=== PATIENT | female | born 1985 | race Caucasian/White ===

== ENCOUNTER 2017-08-09 20:28 | Emergency (ER) | payer OTHER, MEDICAID, SELFPAY ==
[2017-08-09 20:29] VITALS: BP 145/70; PULSE 95; RESP 17; TEMP 36.6; O2SAT 98; BMI 23.3
--- NOTE | 2017-08-09 20:57 | RAD_ITS ---
STUDY: X-RAY - RIGHT SHOULDER REASON FOR EXAM: Female, 31 years old. Pain TECHNIQUE: 2 view(s) of the shoulder. COMPARISON: None. FINDINGS: Normal glenohumeral articulation. Normal acromioclavicular joint. Normal acromion. Normal humeral head and visualized proximal humerus. The soft tissue structures are unremarkable. Normal visualized pulmonary apex. RAD/Shoulder min 2 Views IMPRESSION: Normal x-ray examination of the shoulder. Electronically Signed: Jefe Gardner MD at 21:41 EDT Tel , Service support ,
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
[2017-08-09] MEDS: Ketorolac 60 MG/2 ML Vial IM (21:10)
[2017-08-09] MEDS: Orphenadrine 60 MG/2 ML Ampul IM (21:10)
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
== END 2017-08-09 22:27 | disposition home or self-care (01) ==
LOC: ED 21:44
PROVIDERS: Emergency Provider Emergency Medicine; Family Provider Internal Medicine; PCP Internal Medicine
DX: S16.1XXA Strain of muscle, fascia and tendon at neck level, initial encounter (principal); S39.012A Strain of muscle, fascia and tendon of lower back, initial encounter; V53.5XXA Driver of pick-up truck or van injured in collision with car, pick-up truck or van in traffic accident, initial encounter; Y93.9 Activity, unspecified; Y92.9 Unspecified place or not applicable; Z90.710 Acquired absence of both cervix and uterus; Z72.0 Tobacco use
CPT/HCPCS: 72040; 72100; 73030; 99282

== ENCOUNTER → 2018-04-21 12:59 | Outpatient (CLI) | payer MEDICAID, SELFPAY ==
[2018-04-21 12:36] VITALS: BMI 21.1
--- NOTE | 2018-04-21 13:09 | RAD_ITS ---
STUDY: X-RAY CHEST REASON FOR EXAM: Female, 32 years old. Cough TECHNIQUE: PA and lateral views of the chest. COMPARISON: 05/09/2013 FINDINGS: Single small surgical clip projects over the left breast. The lungs are clear and expanded. There is no demonstrated pleural abnormality. Normal size heart. Normal mediastinum and kaylin. Normal visualized pulmonary arteries. Normal visualized aortic arch and descending thoracic aorta. Normal visualized thoracic spine. Normal visualized ribs, clavicles, and shoulders. There is no demonstrated abnormality of the visualized soft tissue structures of the upper abdomen. RAD/Chest PA and Lateral IMPRESSION: No acute cardiopulmonary process. Electronically Signed: Sathish Hernández MD at 18:54 EST , Service support ,
== END ==
PROVIDERS: Family Provider Internal Medicine; PCP Internal Medicine; Referring Provider Physician Assistant; Visit Provider Physician Assistant
DX: R05 Cough (principal)
CPT/HCPCS: 71046

== ENCOUNTER 2018-08-31 12:03 | Emergency (ER) | payer MEDICAID, SELFPAY ==
[2018-08-29 16:14] VITALS: BMI 21.1
[2018-08-31 12:04] VITALS: BP 113/66; PULSE 90; RESP 16; TEMP 36.8; O2SAT 98; BMI 26.6
--- NOTE | 2018-08-31 12:25 | EKG12_ITS ---
Test Reason : CP Blood Pressure : / mmHG Vent. Rate : 080 BPM Atrial Rate : 080 BPM P-R Int : 154 ms QRS Dur : 084 ms QT Int : 380 ms P-R-T Axes : 081 057 055 degrees QTc Int : 438 ms Normal sinus rhythm Normal ECG Confirmed by ANTHONY FRANKLIN ([id number]), editorial director CELIA BYRD ([id number]) on 09/07/2018 8:51:37 AM Referred By: JO Confirmed By:ANTHONY FRANKLIN
--- NOTE | 2018-08-31 12:27 | ED.VISSUMM ---
- ER Visit Summary Date of Service: 08/31/18 Chief Complaint: [] Chest pressure this morning History of Present Illness: The patient is a 32 F [] she really has no past history other than reports about a week ago she developed runny nose some URI type symptoms intermittent coughing and intermittent dizziness that she has had before she was seen by her providers diagnosed with vertigo related to URI and she is been taking meclizine those symptoms have basically been in the background since they began they may be slightly better she went to bed with all the above then woke today with a vague chest discomfort points to the left chest 5 AM, the symptoms are slightly worse if she turns her torso moves takes a deep breath but she denies fever her cough is unchanged and improved no shortness of breath no numbness weakness paresthesias, She has no history of UT PE or DVT denies has had hysterectomy does smoke half pack a day, 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 does not experience chest pain when she exerts herself Physical Examination: [] v signs within normal range General, no distress resting comfortably HEENT is generally unremarkable The neck is supple no adenopathy Cardiovascular, regular rate and rhythm Lungs, clear bilateral chest wall is not tender but she points to a rather focal area to the left lateral lower sternal region as the area of her discomfort Abdomen, soft nontender Extremities, no clubbing cyanosis or edema Neurologic, awake alert answering questions appropriately moving all 4 extremities Test Results: [] Emergency Department Course and Treatment: [] EKG shows a sinus rhythm nothing acute given all the above screening labs are obtained chest x-ray d-dimer Treatment Plan: [] Patient's labs are all generally unremarkable see those reports, chest x-ray nothing acute see that report, Reevaluation sting comfortably no distress discussed test results with her discussed the differential that would include life-threatening conditions discussed admission versus discharge for further management she did not wish to be admitted she preferred outpatient management she knew and understood instructions follow-up with her outpatient providers for further management return for change in symptoms Disposition: [] Home stable declined admission Impression: [] Left-sided chest pain etiology unclear This note was generated with [employer] software. It may contain incorrect words, spelling, and punctuation that were not noted in review of the chart prior to signing ED Disposition - Plan for ED Patient: Referrals: Shauna Nichols MD [Primary Care Provider] -
[2018-08-31 12:29] VITALS: O2SAT 99
--- NOTE | 2018-08-31 12:30 | RAD_ITS ---
STUDY: X-RAY CHEST REASON FOR EXAM: Female, 32 years old. Chest pain. TECHNIQUE: Single AP portable view of the chest. COMPARISON: Comparison is made with prior examination dated April 21, 2018. FINDINGS: EKG electrodes are seen. The lungs are clear and expanded. There is no demonstrated pleural abnormality. Normal size heart. Normal mediastinum and kaylin. Normal visualized pulmonary arteries. Normal visualized aortic arch and descending thoracic aorta. Normal visualized thoracic spine. Normal visualized ribs, clavicles, and shoulders. There is no demonstrated abnormality of the visualized soft tissue structures of the upper abdomen. RAD/Chest 1 View (Portable) IMPRESSION: Normal x-ray examination of the chest. Electronically Signed: Dimitris Stewart, at 12:57 EDT , Service support ,
[2018-08-31 12:33] LABS: Absolute Lymphocyte Count 3.32 X10^3/ul (0.83-4.51); Absolute Neutrophil Count 4.2 X10^3/uL (2.0-7.7); Basophil# 0.07 X10^3/uL; Basophil% 0.8 % (0-1); Eosinophils% 3.5 % (0-5); Hematocrit 39.6 % (37-47); Hemoglobin 13.3 g/dl (12.0-15.0); Lymphocyte # 3.32 X10^3/ul (4.0); Mean Corp Hgb Conc 33.6 g/gl (32-36); Mean Corpuscular Hgb 29.1 pg (27.0-32.0); Mean Corpuscular Volume 86.7 fL (81-99); Mean Platelet Vol. 11.1 fl (6.2-12.0); Monocyte# 0.62 X10^3/uL; Monocyte% 7.3 % (0-10); Neutrophil # 4.19 X10^3/uL (2.7-7.7); Neutrophil % 49.3 % (47-70); Platelet Count 335 K/mm3 (150-450); RBC Distribution Width CV 12.4 % (11.6-14.6); RBC Distribution Width SD 38.7 fl (35.1-43.9); Red Blood Count 4.57 M/mm3 (4.2-5.4); White Blood Count 8.5 K/mm3 (4.4-11.0)
[2018-08-31 12:43] LABS: POSITIVE COUNT NO; POSITIVE DIFFERENTIAL NO; POSITIVE MORPHOLOGY NO
[2018-08-31 12:57] LABS: Anion Gap 5 (5-15); BUN 12 mg/dL (7-18); BUN/Creat Ratio 15.8 RATIO (10-20); Chloride 108 mmol/L (98-107); Creatinine, Serum 0.76 mg/dL (0.55-1.02); EST Glomerular Filtration Rate 92 mL/min (>60); Est Glom Filt Rate - Afr Amer 111 mL/min (>60); Estimated Creatinine Clearance 112.79 ml/min; Glucose 89 mg/dL (74-106); Potassium 3.8 mmol/L (3.5-5.1); Sodium Level 140 mmol/L (136-145)
[2018-08-31 13:02] LABS: D-Dimer Quantitative (DVT/PE) < 0.27 FEU/ug/m (0.27-0.49)
[2018-08-31] MEDS: Ondansetron 4 MG/2 ML Vial IV (13:03)
[2018-08-31] MEDS: morphine 8 MG/ML Syringe IV (13:03)
[2018-08-31] MEDS: Meclizine HCl 25 MG Tablet PO (13:07)
[2018-08-31 13:08] VITALS: BP 116/64; PULSE 81; RESP 17; O2SAT 99
[2018-08-31 13:18] LABS: BNP,B-Type NATRIURETIC PEPTIDE 6.3 pg/mL (0-100)
[2018-08-31 14:36] VITALS: BP 112/80; PULSE 67; RESP 18; O2SAT 100
--- NOTE | 2018-08-31 14:42 | ED.DEP ---
ED Disposition - Plan for ED Patient: Instructions: ED Chest Pain Atypical Unkn Cause Referrals: Shauna Nichols MD [Primary Care Provider] -
[2018-08-31 14:54] VITALS: BP 112/80; PULSE 67; RESP 13
== END 2018-08-31 14:54 | disposition home or self-care (01) ==
LOC: ED 12:29
PROVIDERS: Emergency Provider Emergency Medicine; Family Provider Internal Medicine; PCP Internal Medicine
DX: R07.89 Other chest pain (principal); Z72.0 Tobacco use
CPT/HCPCS: 71045; 80048; 83880; 84484; 85025; 85379; 93005; 96374; 96375; 99284; A4216; J2405

== ENCOUNTER → 2018-09-18 14:15 | Outpatient (CLI) | payer MEDICAID, SELFPAY ==
[2018-09-18 09:40] VITALS: BMI 26.6
== END ==
PROVIDERS: Family Provider Internal Medicine; PCP Internal Medicine; Referring Provider Physician Assistant Surgical; Visit Provider Physician Assistant Surgical
DX: J02.9 Acute pharyngitis, unspecified (principal)
CPT/HCPCS: 87081

== ENCOUNTER 2018-10-06 19:06 | Emergency (ER) | payer MEDICAID, SELFPAY ==
[2018-09-18 09:40] VITALS: BMI 26.6
[2018-10-06 19:07] VITALS: BP 114/70; PULSE 105; RESP 15; TEMP 37.1; O2SAT 100; BMI 27.6
--- NOTE | 2018-10-06 19:37 | EKG12_ITS ---
Test Reason : ABDOMINAL PAIN Blood Pressure : / mmHG Vent. Rate : 081 BPM Atrial Rate : 081 BPM P-R Int : 164 ms QRS Dur : 082 ms QT Int : 374 ms P-R-T Axes : 085 066 061 degrees QTc Int : 434 ms Normal sinus rhythm Normal ECG Confirmed by BIBI BONNER, SUSAN ([id number]), dictionary editor CORRY DAVIDSON ([id number]) on 10/09/2018 1:26:26 PM Referred By: KAITLIN Confirmed By:SUSAN MTZ MD
--- NOTE | 2018-10-06 19:38 | US_ITS ---
STUDY: ABDOMINAL ULTRASOUND - RIGHT UPPER QUADRANT REASON FOR VISIT: Female, 33 years old. Right upper quadrant pain TECHNIQUE: Ultrasound evaluation of the right upper quadrant was performed with real-time and static rangel-scale imaging. TECHNICAL QUALITY: Adequate. COMPARISON: None. FINDINGS: Liver: The liver measures 18.5 cm. There is normal echogenicity of the liver. The bile ducts are within normal limits. There is hepatic color flow. The direction of portal flow is hepatopetal. There is no demonstrated mass lesion. Gallbladder: Normal distended gallbladder. The gallbladder wall measures 2 mm. There is a negative sonographic Gallardo's sign. There is no pericholecystic fluid. There are no gallstones. Common Bile Duct (C.B.D.): The common bile duct measures 4 mm. Pancreas: The pancreatic head and body are within normal limits. The pancreatic tail is not well visualized. There is no demonstrated pancreatic mass or cyst. Right Kidney: Normal size of the right kidney. The right kidney measures 11.2 cm. Normal renal cortex. There is no demonstrated renal mass or cyst. There is no right hydronephrosis. US/Gallbladder IMPRESSION: Normal right upper quadrant ultrasound examination. Electronically Signed: Jefe Vipul, at 20:57 EDT Tel , Service support ,
[2018-10-06 20:07] LABS: Absolute Lymphocyte Count 4.25 X10^3/ul (0.83-4.51); Basophil# 0.06 X10^3/uL; Basophil% 0.6 % (0-1); Eosinophil# 0.33 X10^3/uL; Eosinophils% 3.1 % (0-5); Hematocrit 40.1 % (37-47); Hemoglobin 13.7 g/dl (12.0-15.0); Lymphocyte # 4.25 X10^3/ul (4.0); Lymphocyte % 40.4 % (19-41); Mean Corp Hgb Conc 34.2 g/gl (32-36); Mean Corpuscular Volume 87.7 fL (81-99); Mean Platelet Vol. 10.6 fl (6.2-12.0); Monocyte# 0.85 X10^3/uL; Monocyte% 8.1 % (0-10); Neutrophil # 5.03 X10^3/uL (2.7-7.7); Neutrophil % 47.7 % (47-70); Platelet Count 321 K/mm3 (150-450); RBC Distribution Width CV 12.4 % (11.6-14.6); Red Blood Count 4.57 M/mm3 (4.2-5.4); White Blood Count 10.5 K/mm3 (4.4-11.0)
[2018-10-06 20:08] LABS: POSITIVE COUNT NO; POSITIVE DIFFERENTIAL NO; POSITIVE MORPHOLOGY NO
[2018-10-06] MEDS: Morphine 4 MG/ML Syringe IV (20:20)
[2018-10-06] MEDS: Ondansetron 4 MG/2 ML Vial IV (20:20)
[2018-10-06] MEDS: 0.9% Normal Saline 1,000 ML 150 ML IV (20:20)
[2018-10-06 20:24] LABS: AST(SGOT) 14 U/L (15-37); Alanine Aminotransfer ALT/SGPT 26 U/L (13-56); Alkaline Phosphatase 51 U/L (45-117); Anion Gap 3 (5-15); BUN 15 mg/dL (7-18); BUN/Creat Ratio 17.4 RATIO (10-20); Bilirubin, Direct < 0.05 mg/dL (0.00-0.30); Calcium,Total 9.1 mg/dL (8.5-10.1); Chloride 105 mmol/L (98-107); Creatinine, Serum 0.86 mg/dL (0.55-1.02); EST Glomerular Filtration Rate 80 mL/min (>60); Est Glom Filt Rate - Afr Amer 97 mL/min (>60); Estimated Creatinine Clearance 98.73 ml/min; Globulin 3.3 g/dL (2.2-4.2); Glucose 84 mg/dL (74-106); Lipase 85 U/L (73-393); Potassium 3.6 mmol/L (3.5-5.1); Protein, Total 7.3 g/dL (6.4-8.2); Sodium Level 137 mmol/L (136-145)
[2018-10-06 20:25] VITALS: RESP 16
[2018-10-06 21:20] VITALS: BP 110/72; PULSE 71; RESP 14; O2SAT 100
--- NOTE | 2018-10-06 22:33 | ED.VISSUMM ---
- ER Visit Summary Date of Service: 10/06/18 Chief Complaint: Right upper quadrant pain History of Present Illness: The patient is a 33 F who was seen in the ER 2 weeks ago for lower chest pain. She states the pain now has moved into the right upper quadrant. Pain is worse when she eats. She has had nausea but no vomiting. She denies fever. Physical Examination: Vital signs unremarkable. Patient sitting upright in bed no acute distress. Heart is regular rate and rhythm. Lung sounds are clear. Abdomen is soft with tenderness in the right upper quadrant. No guarding or rebound. Hypoactive bowel sounds are present throughout. Test Results: EKG is sinus 81 with no acute ischemia. CBC and chemistry studies normal. LFTs and lipase normal. Right upper quadrant ultrasound is unremarkable. Emergency Department Course and Treatment: Patient was given morphine, Zofran, and IV fluids. Test results are discussed with her. We will start her on Prilosec and give her Zofran for nausea. She is to follow-up with her primary care physician within 1 to 2 weeks. She was advised that she may require an EGD or HIDA scan to further evaluate her symptoms if she is not showing improvement. She voices understanding and agreement. Treatment Plan: [] Disposition: Discharge Impression: Right upper quadrant pain This note was generated with [employer] dictation software. It may contain incorrect words, spelling, and punctuation that were not noted in review of the chart prior to signing ED Disposition - Plan for ED Patient: Disposition: Home or Assisted Living Instructions: EPIGASTRIC PAIN (Uncertain cause) Prescriptions: Omeprazole [Prilosec] 20 mg PO DAILY #30 capsule Ondansetron [Zofran Odt] 4 mg PO Q8H PRN PRN #10 tablet PRN Reason: Nausea Referrals: Shauna Nichols MD [Primary Care Provider] - 1-2 Weeks
[2018-10-06 22:44] VITALS: RESP 16
== END 2018-10-06 22:45 | disposition home or self-care (01) ==
PROVIDERS: Emergency Provider Emergency Medicine; Family Provider Internal Medicine; PCP Internal Medicine
DX: R10.11 Right upper quadrant pain (principal); R11.0 Nausea; Z72.0 Tobacco use
CPT/HCPCS: 76705; 80048; 80076; 83690; 85025; 93005; 96361; 96374; 96375; 99283; J7030; J2405

== ENCOUNTER → 2018-12-01 12:54 | Outpatient (CLI) | payer MEDICAID, SELFPAY ==
--- NOTE | 2018-12-01 | FLU_PTH ---
PATIENT: AMY VILLEDA LOC: [facility] U#:[id number] AGE/SX: 39/F ROOM: RE12/01/[address]: Dr. Susan Collier MD : 1985 BED: DIS: SPEC #: [id number] RECD: 12/01/18 13:00 STATUS: NICOLE REQ #: [id number] MERLE: 12/01/18 00:[address]: Susan Collier DEPT: CYTOLOGY RECD BY: Carols Oconnell ENTERED: 12/01/18 13:02 SP TYPE: Fluid OTHR DR: Dr. Shauna Nichols MD Tissues: A - Thyroid gland, NOS B - Thyroid gland, NOS Procedures: Special Stain Group II Surgery Specimen Level IV Cytospin Fluid HEADER OPERATION: Ultrasound-guided fine needle aspiration right thyroid PRE-OP DIAGNOSIS: Thyroid nodules TISSUE SUBMITTED: A - FNA right thyroid fluid for cytology, B - FNA right thyroid 7 slides DIAGNOSIS CYTOLOGY A. Right thyroid nodule, FNA (Cytospin, cell block): Atypical follicular cells noted, highly suspicious for papillary thyroid carcinoma. B. Right thyroid nodule, FNA (Smear): Atypical follicular cells noted, highly suspicious for papillary thyroid carcinoma. Cellular smears. Adequate for evaluation.. DENZEL:alexis 12/04/18 COMMENT A. Immunohistochemistry ([id number]) supports the above diagnosis. Correlation clinical, radiologic findings and appropriate follow up are necessary. Case has been reviewed in consultation with Dr. Sharma who concurs with the above diagnosis. IDC:AM CYTOLOGY STUDY Slides are reviewed. CYTOLOGY GROSS A - Received is 30 ml of cloudy brown fluid labeled with the patient's name and and designated per the requisition as right thyroid. Submitted for cytology preparation including cell block. B - Received are seven smears labeled with the patient's name and designated per the requisition as right thyroid. Submitted for staining. / Mary 12/01/18 TC:5 CPT: 22084, 64453, 65488
--- NOTE | 2018-12-01 | IMM_PTH ---
PATIENT: AMY VILLEDA LOC: [facility] U#:[id number] AGE/SX: 39/F ROOM: RE12/01/[address]: Dr. Susan Collier MD : 1985 BED: DIS: SPEC #: [id number] RECD: 12/04/18 10:38 STATUS: NICOLE REQ #: [id number] MERLE: 12/01/18 00:[address]: Susan Collier DEPT: IMMUNOHISTOCHEMISTRY RECD BY: Fide Reyes ENTERED: 12/04/18 10:40 SP TYPE: IMMUNO OTHR DR: Dr. Shauna Nichols MD Tissues: Thyroid gland, NOS Procedures: HBME (initial) CD56 (add) CK19 (add) GAL-3 (add) PHYSICIAN & INSTITUTION [place] [id number] SPECIMEN INFORMATION: Tissue Source: A. FNA right thyroid fluid Clinical Info: Thyroid nodules Specimen Number: [id number] CPT code: 75862, 00525 x3 METHODOLOGY: Deparaffinized sections of prefer/formalin-fixed tissue or PAP/DQ stained slides are incubated with monoclonal/polyclonal antibodies/oligonucleotide probes. Localization is made via biotin free immunoperoxidase method. Appropriate controls are performed and reacted as expected. Results on target cell population are indicated in the following table: RESULTS: ANTIBODY / CLONE RESULT HBME1 (HBME-1) positive CK19 (A53-B/A2.26) positive GAL3 (9C4) negative CD56 (123C3.D5) negative These tests were developed and their performance characteristics determined by [facility]. They may not have been cleared or approved by the U.S. Food and Drug Administration. The FDA has determined that such clearance or approval is not necessary. INTERPRETATION: Right thyroid nodule fluid (cell block): Atypical follicular cells noted, highly suspicious for papillary thyroid carcinoma. Case has been reviewed in consultation with Dr. Sharma who concurs with the above diagnosis. IDC:[email or web address] SJ:ricardo 12/04/18
== END ==
PROVIDERS: Family Provider Internal Medicine; PCP Internal Medicine; Referring Provider Surgery; Visit Provider Surgery
DX: E04.1 Nontoxic single thyroid nodule (principal)
CPT/HCPCS: 88108; 88305; 88313; 88341; 88342

== ENCOUNTER 2018-12-18 10:19 | Inpatient (IN) | payer MEDICAID, SELFPAY ==
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
[2018-12-18] VITALS (10 sets, daily range): BP systolic 99–115; BP diastolic 60–79; PULSE 64–81; RESP 16–18; TEMP 36.3–37.1; O2SAT 98–100; BMI 26.7; BMI 26.8
--- NOTE | 2018-12-18 | IMM_PTH ---
PATIENT: AMY VILLEDA LOC: MS3 U#:[id number] AGE/SX: 33/F [facility] [facility] [place]21/[address]: Dr. Mindi Eden MD : 1985 BED: 1 DIS: 12/23/2018 SPEC #: [id number] RECD: 12/20/18 12:46 STATUS: SOU[facility]ar REQ #: [id number] MERLE: 12/18/18 00:[address]: Susan Collier DEPT: IMMUNOHISTOCHEMISTRY RECD BY: Chelle Dias ENTERED: 12/20/18 12:47 SP TYPE: IMMUNO OTHR DR: Dr. Shauna Nichols MD Tissues: A - Thyroid gland, NOS Procedures: HBME (initial) CD56 (add) CK19 (add) GAL-3 (add) PHYSICIAN & INSTITUTION [place] [id number] SPECIMEN INFORMATION: Tissue Source: A - Right thyroid Clinical Info: Atypia, right thyroid nodule Specimen Number: [id number] CPT code: 61779, 96257 x3 METHODOLOGY: Deparaffinized sections of prefer/formalin-fixed tissue or PAP/DQ stained slides are incubated with monoclonal/polyclonal antibodies/oligonucleotide probes. Localization is made via biotin free immunoperoxidase method. Appropriate controls are performed and reacted as expected. Results on target cell population are indicated in the following table: RESULTS: ANTIBODY / CLONE RESULT Block A HBME1 (HBME-1) positive CK19 (A53-B/A2.26) positive GAL3 (9C4) positive CD56 (123C3.D5) positive, focal These tests were developed and their performance characteristics determined by [facility]. They may not have been cleared or approved by the U.S. Food and Drug Administration. The FDA has determined that such clearance or approval is not necessary. INTERPRETATION: A. Right thyroid, lobectomy: Focal adenomatoid nodule. AM:almaz 12/25/18
[2018-12-18] MEDS: Lactated Ringers 1,000 ML 75 ML IV ×3 (08:33→15:10)
--- NOTE | 2018-12-18 10:00 | THYROID_PTH ---
PATIENT: AMY VILLEDA LOC: MS3 U#:[id number] AGE/SX: 33/F [place]: [facility] [place] RE12/21/[address]: Dr. Mindi Eden MD : 1985 BED: 1 DIS: 12/23/2018 SPEC #: [id number] RECD: 12/18/18 14:34 STATUS: NICOLE RELucy #: [id number] MERLE: 12/18/18 10:[address]: Susan Clolier DEPT: SURGICAL PATHOLOGY RECD BY: Fide Reyes ENTERED: 12/19/18 09:27 SP TYPE: THYROID OTHR DR: Dr. Shauna Nichols MD Tissues: A - Thyroid gland, NOS B - Thyroid gland, NOS Procedures: Surgery Specimen Level V HEADER OPERATION: Total thyroidectomy PRE-OP DIAGNOSIS: Atypia, right thyroid nodule TISSUE SUBMITTED: A. Right thyroid, B. Left thyroid MICROSCOPIC DIAGNOSIS A. Right thyroid, lobectomy: Colloid nodules with focal adenomatous nodule. Benign parathyroid tissue (3 mm in greatest dimension). See comment. B. Left thyroid, lobectomy: Colloid nodules. AM:almaz 12/25/18 COMMENT A. Immunohistochemistry ([id number]) supports the above diagnosis. This case is seen in consultation with of [employer]. His complete consultative report is viewable in patient's EMR. MICROSCOPIC DESCRIPTION Slides are reviewed. GROSS DESCRIPTION A - Received in fixative is one container labeled with the patient's name and designated right thyroid. The specimen consists of a thyroid lobectomy specimen weighing 13.3 gm and measuring 5.5 x 5 x 1 cm. A portion of isthmus is present measuring 1.5 x 0.7 x 0.5 cm. Present in the container is a detached piece of whyte-pink soft tissue measuring 1 x 0.5 x 0.3 cm. The specimen is inked as follows: anterior surface - black, posterior surface - blue, ischemic margin - yellow. Serial sections reveal [id number], solid cut surfaces without any mass lesion. The entire specimen is submitted in 12 cassettes as follows: 1 - detached piece of tissue and isthmus, 2-12 - rest of the specimen (2 containing most superior portion and 12 containing most inferior portion). / DENZEL:almaz 12/19/18 B - Received in fixative is one container labeled with the patient's name and designated left thyroid. The specimen consists of a thyroid lobectomy specimen weighing 10.5 gm and measuring 4 x 3 x 2 cm. A small portion of possible isthmus is also noted measuring 1.5 x 1 x 0.5 cm. The specimen is inked as follows: anterior surface - black, posterior surface - blue, ischemic margin - yellow. The entire specimen is submitted in ten cassettes as follows: 1-9 - thyroid lobe (1 containing most superior portion and 9 containing most inferior portion), 10 - isthmus. / DENZEL:almaz 12/19/18 TC:1 CPT: 95268 x2
--- NOTE | 2018-12-18 13:27 | PCM.OPRPT ---
Report of Operation Date of Procedure: 12/18/18 Pre-Operative Diagnosis: right thyroid nodule with FNA revealing atypia Post-Operative Diagnosis: same as above Surgery/Procedure Performed:: total thyroidectomy Description of Surgical Findings:: superior parathyroid may be embedded in superior aspect of right thyroid gland, but left upper and lower parathyroid glands visualized and also right lower parathyroid gland visualized, large right thyroid gland with adhesions disbursing agent: Catarina Kevin Type of Anesthesia:: General Anesthesiologist: Alf Oneal Specimen's removed: thyroid gland Estimated Blood Loss (mL): 20 ml Fluids Replaced: 1800 ml Description of Procedure: After informed consent was obtained, the patient was brought to the Operating Room. Appropriate time out protocol was followed. She was then placed in the supine position. She was then placed under GETA. The patient was then positioned with arms tucked and appropriate padding, with neck extension, and in the slightly reverse Trendelenburg position. The ultrasound transducer was then brought up and the patient's thyroid gland was evaluated using real time US. This was done to delineate the margins of the thyroid gland on both sides so as to make an incision appropriate for removal of the thyroid gland. This was then marked out with a marking pen on the patient's skin. The neck and upper chest were then prepped with a sterile surgical skin preparation and appropriate sterile surgical drapes were placed. The landmarks were identified and a low cervical collar incision was made with a 15 blade scalpel as previously marked out above. It was carried down to the subcutaneous tissues using Bovie in the electrocautery mode. The platysma was divided along the incision and then flaps were created superiorly to the cricoid cartilage level and inferiorly to the sternal notch. The fascia overlying the strap muscles was then divided along the midline. The right thyroid gland was approached first. The plane between the thyroid gland anteriorly and the strap muscles posteriorly was then bluntly dissected. Dissection continued layer by layer and with use of the Harmonic scalpel to separate the gland from the surrounding tissues. The right thyroid gland was noted to be adherent to the surrounding tissues more than normal. The superior pole vessels were taken were dissected out individually and then ligaclips were placed and then the vessels were transected with the Harmonic scalpel. It appeared that a structure that looked like a parathyroid gland was embedded in the superior pole of the thyroid gland. The right thyroid gland was also noted to be enlarged. The thyroid gland was then rotated medially the middle vein was identified and transected with the Harmonic scalpel. The inferior pole was then identified and the vessels were ligated with ligaclips. The recurrent laryngeal nerve was then identified along its course and protected from injury. The thyroid gland was rotated medially and then dissected off the trachea. This was carefully done to avoid any injury to the recurrent laryngeal nerves. The inferior parathyroid gland was identified and also protected. The right thyroid gland was then transected at the isthmus and forwarded to pathology for analysis. The patient had already stated that she wanted a total thyroidectomy, therefore frozen section was not done. Hemostasis was carefully controlled with electrocautery avoiding any injury to the recurrent laryngeal nerves and the parathyroid glands. Because there is some bleeding still near the area of the recurrent laryngeal nerve , Surgicel was used for hemostasis. The left thyroid gland was then approached next. The plane between the thyroid gland anteriorly and the strap muscles posteriorly was then bluntly dissected. Dissection continued layer by layer and with use of the Harmonic scalpel to separate the gland from the surrounding tissues. Of note, the left thyroid gland was smaller than the right and no adhesions were noted of the left thyroid lobe to the surrounding tissues. The superior pole vessels were taken were dissected out individually and then ligaclips were placed and then the vessels were transected with the Harmonic scalpel. The superior parathyroid gland was identified and protected from the area of dissection. The thyroid gland was then rotated medially the middle vein was identified and transected with the Harmonic scalpel. The inferior pole was then identified and the vessels were ligated with ligaclips. The recurrent laryngeal nerve was then identified along its course and protected from injury. The inferior parathyroid gland was identified and protected from the area of dissection. The inferior pole vessels were identified and the vessels were ligated with ligaclips and then transected with the Harmonic scalpel. The thyroid gland was rotated medially and then dissected off the trachea. It was forwarded to pathology for analysis. Hemostasis was carefully controlled with electrocautery. Surgicel was also applied to the thyroid bed. No active bleeding was noted at time of closure. The fascia of the strap muscles was then reapproximated along the midline using Vicryl suture. The platysma muscle was then reapproximated in a transverse fashion using interrupted 2-0 Vicryl suture. The skin incision was then reapproximated using 4-0 Monocryl in a running subcuticular fashion. The skin closure was reinforced with Dermibond. The patient was then extubated. She was brought to the Recovery Room in stable condition. - Complications none noted - Admit VTE Documentation VTE Present on Admission: Yes VTE Mechan Device Prophylaxis: SCD's
[2018-12-18] MEDS: Ketorolac 15 MG/ML Vial IM (14:36)
[2018-12-18] MEDS: 0.9% NaCl Peripheral Flush Adult/Peds IV (15:47)
[2018-12-18] MEDS: Ondansetron 4 MG/2 ML Vial IV (15:48)
--- NOTE | 2018-12-18 16:09 | NURSING ---
HOB elevated at 45 degrees.
[2018-12-18] MEDS: HYDROcodone Bitartrate/Apap 5/325 Tablet PO ×2 (19:17→23:17)
--- NOTE | 2018-12-18 19:42 | DCINST_ITS ---
Discharge Diet: No Restrictions Discharge Activity: Return to Normal Activity, May not drive while taking narcotic pain medications. Call your doctor if your incision/area has: Continuous Slow Oozing, Foul Smelling Discharge Call your doctor if you observe: Fever of 101 or Higher Additional Dressing/Incision Instructions:: Leave dressing intact. May shower and get wet. Do not soak - no swimming/tub baths Additional Instructions: Take two TUMS twice a day Allergies/Adverse Reactions: Allergies codeine Allergy (Verified 12/18/18 08:23) Other unable to sleep fluoxetine [From Prozac] Allergy (Verified 12/18/18 08:23) Other naproxen Allergy (Verified 12/18/18 08:23) Other nose bleed Medications to take at Discharge Albuterol Inhaler [Ventolin Hfa (SP)] 1 - 2 puff INHALATION Q4H PRN PRN 12/08/18 Ibuprofen 400 mg PO PRN PRN 12/08/18 Lactobacillus Acidophilus [Probiotic] 1 ea PO DAILY 12/08/18 cycloBENZAPRine HCl [Flexeril] 10 mg PO TID PRN PRN 12/08/18 Hydrocodone Bitart/Apap 5-325 [[place] 5MG-325MG] 1 tab PO Q8H PRN PRN 5 Days #15 tab 12/19/18 Levothyroxine [Synthroid] 150 mcg PO DAILY #30 tab 12/19/18 The following prescriptions were given: Hydrocodone Bitart/Apap 5-325 [[place] 5MG-325MG] 1 tab PO Q8H PRN PRN 5 Days #15 tab PRN Reason: Mod-Severe Pain (-01/18) Prescription Printed Levothyroxine [Synthroid] 150 mcg PO DAILY #30 tab Prescription Printed Primary Care Physician: Shauna Nichols MD [Primary Care Provider] - Test Results: Test results from this visit will be discussed in further detail at your follow- up appointment, if applicable. Please Follow Up With: Susan Collier MD - call When: to be seen next week, please call for date and time, thank you
[2018-12-19] MEDS: Morphine 4 MG/ML Syringe IV (01:21)
[2018-12-19 01:55] VITALS: BP 103/58; PULSE 79; RESP 16; TEMP 36.8; O2SAT 97
[2018-12-19] MEDS: HYDROcodone Bitartrate/Apap 5/325 Tablet PO ×2 (05:18→09:21)
[2018-12-19] MEDS: Levothyroxine 150 MCG Tablet PO (05:18)
[2018-12-19 06:16] LABS: Calcium,Total 8.2 mg/dL (8.5-10.1)
--- NOTE | 2018-12-19 07:13 | PCM.PN.SRG ---
Subjective: Patient feeling sore in the throat, complaint of swelling, has erythematous rash of the area - probably from the skin prep - Physical Exam General: Alert, Oriented x3 HEENT: Atraumatic Oral: Moist Mucosa, - - not sounding as hoarse as yesterday Neck: Supple, - - wound intact - no drainage, surrounding erythematous rash - probable skin irritation from surgical skin prep Lungs: Normal air movement Vital Signs Temp Pulse Resp BP Pulse Ox 98.2 F 79 16 103/58 L 97 12/19/18 01:55 12/19/18 01:55 12/19/18 01:55 12/19/18 01:55 12/19/18 01:55 Oxygen Delivery Method Room Air Weight: 87 kg Body Mass Index (BMI) 26.8 Intake and Output for Last 24 Hours 12/17/18 12/18/18 12/19/18 23:59 23:59 23:59 Intake Total 1583.50 / 1583.50 Balance 1583.50 / 1583.50 Laboratory Tests Past 24 Hrs 12/19/18 05:40 Calcium 8.2 L Medical Necessity - Tobacco Use Smoking Status: Current every day smoker Tobacco Use: Cigarettes Assessment/Plan All Active Problems (Last Updated 09/18/18 @ 09:39 by Maya Anderson) Pharyngitis, acute (Acute) No significant past medical history (Acute) Impression: S/P total thyroidectomy Plan: expected soreness of the throat and neck, swelling is minimal, does have reactive dermatitis from surgical skin prep will d/c to home start 150 micrograms of levothyroxine, also TUMS two tablets twice a day
[2018-12-19 07:44] VITALS: BP 112/76; PULSE 65; RESP 18; TEMP 36.3; O2SAT 100
[2018-12-19] MEDS: Calcium Carbonate 500 MG Tablet 1000 MG PO (07:47)
== END 2018-12-23 10:31 | disposition home or self-care (01) | DRG 404 ==
LOC: PCU 01-02 09:18 → MS3 01-02 09:22
PROVIDERS: Admitting Provider Surgery; Family Provider Internal Medicine; PCP Internal Medicine; Referring Provider Surgery; Visit Provider Student in an Organized Health Care Education/Training Program
PROC: 0GTK0ZZ Resection of Thyroid Gland, Open Approach (ICD-10-PCS; CPT 60240; principal; 2018-12-18 09:45)
DX: E04.1 Nontoxic single thyroid nodule (principal); G89.29 Other chronic pain; F17.210 Nicotine dependence, cigarettes, uncomplicated; K21.9 Gastro-esophageal reflux disease without esophagitis; E83.51 Hypocalcemia; E89.0 Postprocedural hypothyroidism; Z79.899 Other long term (current) drug therapy; Z79.890 Hormone replacement therapy
CPT/HCPCS: 60240; 36415; 82310; 88307; 88341; 88342; 96361; 96374; 96375; 99218; 99406; J7120; A4216; G0378; G0379; J2405

== ENCOUNTER 2018-12-21 18:59 | Observation (INO) | payer MEDICAID, SELFPAY ==
[2018-12-18 15:56] VITALS: BMI 26.8
[2018-12-21 19:02] VITALS: BP 140/90; PULSE 70; RESP 17; TEMP 36.9; O2SAT 99; BMI 28.0
--- NOTE | 2018-12-21 19:04 | EKG12_ITS ---
Test Reason : DYSRHYTHMIA Blood Pressure : / mmHG Vent. Rate : 072 BPM Atrial Rate : 072 BPM P-R Int : 138 ms QRS Dur : 074 ms QT Int : 398 ms P-R-T Axes : 067 073 066 degrees QTc Int : 435 ms Normal sinus rhythm Junctional ST depression, probably normal Borderline ECG Confirmed by HESHAM BONNER, VICENTE ([id number]), medical transcription editor LESA CARO ([id number]) on 12/25/2018 3:39:06 PM Referred By: OMEGA Confirmed By:TODD DAHL MD
[2018-12-21] MEDS: 0.9% Normal Saline 1,000 ML 250 ML IV (19:23)
[2018-12-21 19:40] LABS: Hematocrit 36.8 % (37-47); Hemoglobin 12.2 g/dL (12.0-15.0); Mean Corp Hgb Conc 33.2 g/dL (32-36); Mean Corpuscular Volume 87.6 fL (81-99); Mean Platelet Vol. 11.1 fl (6.2-12.0); Platelet Count 292 K/mm3 (150-450); RBC Distribution Width SD 38.5 fl (35.1-43.9); White Blood Count 9.2 K/mm3 (4.4-11.0)
[2018-12-21 19:56] LABS: AST(SGOT) 16 U/L (15-37); Alanine Aminotransfer ALT/SGPT 28 U/L (13-56); Albumin, Serum 3.4 g/dL (3.2-5.0); Alkaline Phosphatase 48 U/L (45-117); Anion Gap 4 (5-15); BUN 9 mg/dL (7-18); BUN/Creat Ratio 9.4 RATIO (10-20); Calcium,Total 8.4 mg/dL (8.5-10.1); Chloride 103 mmol/L (98-107); Creatinine, Serum 0.96 mg/dL (0.55-1.02); EST Glomerular Filtration Rate 70 mL/min (>60); Est Glom Filt Rate - Afr Amer 85 mL/min (>60); Estimated Creatinine Clearance 91.42 ml/min; Globulin 3.5 g/dL (2.2-4.2); Glucose 95 mg/dL (74-106); Potassium 3.5 mmol/L (3.5-5.1); Protein, Total 6.9 g/dL (6.4-8.2); Sodium Level 141 mmol/L (136-145)
--- NOTE | 2018-12-21 20:02 | ED.RN ---
PER DR. SCHULTZ RN TO ADMINISTER CALCIUM WITH A RESULT OF 8.4. RN WILL CONTINUE TO MONITOR.
--- NOTE | 2018-12-21 20:10 | PCM.HP.STD ---
Problem List (1) Hypocalcemia syndrome Status: Acute (2) Hypothyroidism Status: Chronic Qualifiers: Hypothyroidism type: unspecified Qualified Code(s): E03.9 - Hypothyroidism, unspecified (3) Chronic pain Status: Chronic Qualifiers: Chronic pain type: other chronic pain Qualified Code(s): G89.29 - Other chronic pain (4) DDD (degenerative disc disease) Status: Chronic Qualifiers: Mid-cervical spinal level: unspecified (5) Tobacco use Status: Chronic History of Present Illness Date of Admission: 12/21/18 Chief Complaint: Muscle cramps, fatigue, confusion The patient is a 33 y/o F w/ PMHx: Hypothyroidism, chronic back pain with degenerative disc disease, history of hypoglycemia who presents to the [facility] ED on 12/21/18 with recent 12/18/18 right thyroid nodule with FNA revealing atypia therefore patient underwent total thyroidectomy per Dr. Collier who now-represents with noted onset perioral paresthesias, cramps irritability, muscle spasms with notable fatigue, clonus and hyperreflexia worsening for the last several days prompting ED presentation. Patient notes that she has been in contact with Dr. Collier and the office staff with increase of her oral calcium supplementation and she felt as though she had been improving initially this a.m. however worsened through the evening. Dr. Harper is on-call for Dr. Collier and does not perform this procedure therefore hospitalist medicine contacted per ED physician. Work-up in the ED included T 98.4, heart rate 70, BP 140/90, respiratory rate 17, 99% on room air, CBC with WBC 9.2, hemoglobin 12.2, platelet 292 without differential obtained, CMP with carbon oxide 34, calcium 8.4. In the ED patient ministered calcium chloride, morphine, Zofran. In the ED patient with noted Chvostek's as well as Trousseau sign. Past Medical History Past Medical History (Chronic Problems): Chronic Problems (Last Updated 09/18/18 @ 09:39 by Maya Anderson) Hypothyroidism (Chronic) Chronic pain (Chronic) DDD (degenerative disc disease) (Chronic) Tobacco use (Chronic) Medical History: Medical History (Last Updated 09/18/18 @ 09:39 by Maya Anderson) Arthritis M19.90 Back pain M54.9 TMJ (temporomandibular joint syndrome) M26.609 Allergies codeine Allergy (Verified 12/18/18 08:23) Other unable to sleep fluoxetine [From Prozac] Allergy (Verified 12/18/18 08:23) Other naproxen Allergy (Verified 12/18/18 08:23) Other nose bleed Home Medications: Ambulatory Orders Medication Instructions Recorded Albuterol Inhaler [Ventolin Hfa 1 - 2 puff INHALATION Q4H PRN PRN 12/08/18 (SP)] Ibuprofen 400 mg PO DAILY PRN PRN 12/08/18 Lactobacillus Acidophilus 1 ea PO DAILY 12/08/18 [Probiotic] cycloBENZAPRine HCl [Flexeril] 10 mg PO TID PRN PRN 12/08/18 Hydrocodone Bitart/Apap 5-325 1 tab PO Q8H PRN PRN 5 Days #15 tab 12/19/18 [Castleton 5MG-325MG] Levothyroxine [Synthroid] 150 mcg PO DAILY #30 tab 12/19/18 Surgical History: Surgical History (Last Updated 09/18/18 @ 09:39 by Maya Anderson) History of partial hysterectomy Z90.711 Surgical History: - - Thyroidectomy, partial hysterectomy, L facial cyst removal, R elbow surgery. Psychiatric History: Anxiety, Depression [employer] History: No pertinent [employer] history Lives: With Family Smoking Status: Current some day smoker - 1/2 ppd cigarette tobacco use. Tobacco Use: Cigarettes Alcohol: None Drugs: None - *Family History Maternal Family History: Family History (Last Updated 09/18/18 @ 09:40 by Maya Anderson) Other Diabetes Hypertension History Items: Diabetes, Hypertension Paternal Family History: Family History (Last Updated 09/18/18 @ 09:40 by Maya Anderson) Other Diabetes Hypertension History Items: Diabetes, Hypertension Review of Systems Constitutional: Reports: Anorexia, Malaise, Weakness, Fatigue. Denies: Chills, Fever, Weight Change HEENT: Denies: Head Aches, Sinus Congestion, Sinus Drainage Cardiovascular: Denies: Chest Pain, Palpitations Respiratory: Denies: Cough, Shortness of breath at rest, Sputum production Gastrointestinal: Denies: Abdominal Pain, Nausea, Vomiting Genitourinary: Denies: Dysuria Musculoskeletal: Reports: Muscle pain. Denies: Joint Pain, Joint Tenderness Skin: Reports: Skin Changes. Denies: Rash, Wounds Neurological: Reports: Confusion, Numbness. Denies: Focal weakness, Tingling Psychiatric: Denies: Anxiety, Depression, Homicidal Ideations, Suicidal Ideations Hematologic/ Lymphatic: Denies: Easy Bruising, Easy Bleeding VTE Information - Inpt Only VTE Present on Admission: No VTE Mechan Device Prophylaxis: None VTE Pharm Prophylaxis ordered?: No Reason prophylaxis not ordered:: Treatment Not Indicated Patient Problems: Active and Suspected Problems (Last Updated 09/18/18 @ 09:39 by Maya Anderson) Hypocalcemia syndrome (Acute) Subjective: Seated upright in the bed, fatigued appearance, notes ongoing fasciculations of her muscles as well as cramping especially when BP obtained. Objective: Physical Examination: General: awake, alert, oriented x 3 and cooperative, seated upright in the ED bed, fatigued appearing. Skin: normal color, turgor, no icterus, cyanosis except recent thyroidectomy with incision intact, well-appearing. HEENT: AT/NC, EOMI, PERRLA, dry MM, recent thyroidectomy with incision intact, no carotid bruits or JVD noted. Lungs: CTA bilaterally, moderate effort, mild decrease BL bases, no rales, ronchi or wheezing. Heart: Regular rate and rhythm; no gallop, rub audible. Abdomen: soft, NTTP, ND, normal BS, no HSM. Extremities: no cyanosis, clubbing, or edema. Neurological: patient awake, alert, oriented x 3; cognitive function intact; pupils equally reactive to light and accomodation; cranial nerves II-XII grossly normal, moving all 4 extremities, no focal deficits, strength moderately to severely global decrease secondary to acute presentation, positive Trousseau sign evident during examination with BP cuff, unable to elicit response with tapping of the facial nerve. Psychiatric: affect appears fatigued, no acute evidence of depressive or anxiety feelings. - Physical Exam Vital Signs Temp Pulse Resp BP Pulse Ox 98.4 F 70 17 140/90 H 99 12/21/18 19:02 12/21/18 19:02 12/21/18 19:02 12/21/18 19:02 12/21/18 19:02 Oxygen Delivery Method Room Air Weight: 201 lb 8.04 oz Body Mass Index (BMI) 28.0 Laboratory Tests Past 24 Hrs 12/21/18 12/21/18 19:20 19:20 WBC 9.2 RBC 4.20 Hgb 12.2 Hct 36.8 L MCV 87.6 MCH 29.0 MCHC 33.2 RDW Std Deviation 38.5 RDW Coeff of Jenn 12.0 Plt Count 292 MPV 11.1 Sodium 141 Potassium 3.5 Chloride 103 Carbon Dioxide 34.0 H Anion Gap 4 L BUN 9 Creatinine 0.96 Estim Creat Clear Calc 91.42 Est GFR (MDRD) Af Amer 85 Est GFR (MDRD) Non-Af 70 BUN/Creatinine Ratio 9.4 L Glucose 95 Calcium 8.4 L Total Bilirubin 0.10 L AST 16 ALT 28 Alkaline Phosphatase 48 Total Protein 6.9 Albumin 3.4 Globulin 3.5 Albumin/Globulin Ratio 1.0 Assessment/Plan All Active Problems (Last Updated 09/18/18 @ 09:39 by Maya Anderson) Hypocalcemia syndrome (Acute) Pharyngitis, acute (Acute) No significant past medical history (Acute) The patient is a 33 y/o F w/ PMHx: Hypothyroidism, chronic back pain with degenerative disc disease, history of hypoglycemia who presents to the [facility] ED on 12/21/18 with recent 12/18/18 right thyroid nodule with FNA revealing atypia therefore patient underwent total thyroidectomy per Dr. Collier who now-represents with noted onset perioral paresthesias, cramps irritability, muscle spasms with notable fatigue, clonus and hyperreflexia. (1) Acute postoperative iatrogenic hypocalcemia secondary to recent thyroidectomy: Admission calcium 8.4, although not markedly low patient is notably symptomatic, will admit to medical surgical bed with telemetry, continue with current plan for calcium gluconate administration, additionally will administer calcitriol, will obtain ionized calcium, PTH, magnesium and phosphate levels, repeat CMP and CBC in a.m. Dr. Collier, patient's surgeon has been consulted. (2) Hypothyroidism: Continue home synthroid regimen. (3) Chronic Back Pain, DDD: Continue home chronic regimen, positional changes encouraged. (4) Tobacco Abuse: Encouraged cessation, inpatient consultation per RT, NR if desired. (5) DVT Prophylaxis: Low risk, ambulation encouraged. Code Visit Inpatient E&M: 87901 Init Hosp L3
--- NOTE | 2018-12-21 20:17 | ED.VIS.GEN ---
History of Present Illness Chief Complaint: Dizziness Detail of Chief Complaint: I do not feel well Informant: Patient Onset: Today Context: Sudden Onset Timing: Continuous Quality: Malaise, confusion, muscle irritability Location: Generalized Current Severity: Moderate Maximum Severity: Moderate Worsened by: Thyroidectomy December 19 Relieved by: Nothing Associated Symptoms: Symptoms of hypocalcemia Narrative: Patient is a 33-year-old who had a thyroidectomy performed by Dr. Susan Collier on December 19. Patient presents with symptoms of hypocalcemia. Patient's physical exam is consistent with hypocalcemia. She has no other complaints. She contacted Dr. Charli Harper who is on-call for general surgery for the [facility]. He recommended she come to the emergency department. Prior similar symptoms: No Recent Illness/Hospitalization: Yes Past Medical History - Allergies and Home Meds Allergies/Adverse Reactions: Allergies codeine Allergy (Verified 12/18/18 08:23) Other unable to sleep fluoxetine [From Prozac] Allergy (Verified 12/18/18 08:23) Other naproxen Allergy (Verified 12/18/18 08:23) Other nose bleed Primary Care Physician: Shauna Nichols MD [Primary Care Provider] - Prior records reviewed: Yes Past Medical History: None Surgical History: noncontributory Lives: With Family Smoking Status: Current some day smoker Alcohol: None Drugs: None Review of Systems General: Reports: Malaise. Denies: Chills, Fever, Sweats Eyes: Denies: Visual changes - bilaterally, Blurred Vision - bilaterally, Diplopia ENT: Denies: Bilateral ear pain, Rhinorrhea, Sore throat Cardiovascular: Denies: Chest pain, Palpitations Respiratory: Denies: Dyspnea, Cough, Dyspnea on exertion Gastrointestinal: Reports: Nausea. Denies: Abdominal pain, Vomiting, Diarrhea, Constipation, Melena, Hematochezia, -, - Genitourinary: Denies: Dysuria, Hematuria, Frequency Musculoskeletal: Reports: Myalgias, Extremity Pain. Denies: Arthralgias, Neck pain, Back pain, Swelling, -, - Skin: Denies: Rash, Wounds Neurological: Reports: Weakness, Parasthesia. Denies: Headache, Numbness, -, - Hematologic: Denies: Easy bruising, Easy bleeding Allergy: Denies: Uticaria, Swelling of the mouth, Swelling of the tongue Physical Exam Vital Signs/Narrative: Vital Signs Temp Pulse Resp BP Pulse Ox 12/21/18 19:02 98.4 F 70 17 140/90 H 99 Inital Vital Signs reviewed: Yes General: Well nourished, Well developed, - - She does not look well Head: Normocephalic, Atraumatic Eyes: Perrl, EOMI. Negative for: Pale conjunctiva, Scleral icterus ENT: Moist mucous membranes, No rhinorrhea Neck: Supple, Nontender, No lymphadenopathy, No JVD Cardiovascular: Regular rate, Regular rhythm, No murmurs, Normal S1, Normal S2 Respiratory: No distress, CTA bilaterally, Chest nontender Abdomen: Soft, Nontender, Nondistended, Normal bowel sounds Rectal: Deferred Back: Nontender, Normal Inspection. Negative for: CVA tenderness Extremities: Nontender, No edema Skin: Normal color, No rash, No Trauma. Negative for: Cyanosis, Diaphoresis, Jaundice Neurological: Alert, Oriented x3, Cranial nerves II-XII grossly intact, Normal Strength, Normal Sensation, Normal DTR - DTRs are brisk with 6-10 beats of clonus at the ankles, - - She has bilateral chovstek sign and positive Trousseau sign. Negative for: Normal Gait - Not assessed Psychological: Depressed Diagnostic/Tx/Re-eval - Medical Decision Making With patient's recent history of thyroidectomy symptoms of hypocalcemia and objective findings of hypocalcemia 1 g of calcium chloride to be infused over 50 minutes was ordered as well as a continuous drip of 1 g over 6 hours. Case was discussed with surgeon. He requested hospitalist admit patient because he does not do thyroidectomies nor has he treated hypocalcemia from thyroidectomy in some time. - Critical Care Time Critical care time (excluding procedures): 30-74 minutes - 32 minutes, Discussing w/Patient &/or Family/Commission Specialist, Discussing w/Consultants, Arranging Admission or Transfer ED Disposition - Plan for ED Patient: Diagnosis: Hypocalcemia syndrome Referrals: Shauna Nichols MD [Primary Care Provider] -
[2018-12-21] MEDS: Morphine 4 MG/ML Syringe IV (20:20)
[2018-12-21] MEDS: Ondansetron 4 MG/2 ML Vial IV (20:20)
[2018-12-21 21:07] VITALS: BP 117/85; PULSE 69; RESP 16; O2SAT 99
[2018-12-21 22:00] VITALS: BMI 27.6
[2018-12-21 22:18] LABS: Magnesium 1.8 mg/dL (1.6-2.6); Phosphorus 6.6 mg/dL (2.5-4.9)
[2018-12-21 22:19] VITALS: BP 107/65; PULSE 78; RESP 16; TEMP 36.6; O2SAT 97
[2018-12-21] MEDS: Acetaminophen 325 MG Tablet 650 MG PO (23:10)
[2018-12-21] MEDS: cycloBENZAPRine HCl 10 MG Tablet PO (23:10)
[2018-12-21] MEDS: 0.9% NaCl Peripheral Flush Adult/Peds IV (23:10)
[2018-12-21] MEDS: 0.9% Normal Saline 1,000 ML 125 ML IV (23:11)
[2018-12-22] VITALS (10 sets, daily range): BP systolic 101–122; BP diastolic 55–79; PULSE 68–88; RESP 16–18; TEMP 36.4–36.7; O2SAT 96–100
[2018-12-22] MEDS: HYDROcodone Bitartrate/Apap 5/325 Tablet PO ×5 (03:03→23:02)
[2018-12-22] MEDS: Levothyroxine 150 MCG Tablet PO (05:03)
[2018-12-22] MEDS: 0.9% Normal Saline 1,000 ML 999 ML IV (05:03)
[2018-12-22 05:53] LABS: Absolute Lymphocyte Count 3.37 X10^3/uL (0.83-4.51); Absolute Neutrophil Count 2.6 X10^3/uL (2.0-7.7); Basophil# 0.05 X10^3/uL; Basophil% 0.7 % (0-1); Eosinophil# 0.27 X10^3/uL; Hematocrit 33.1 % (37-47); Hemoglobin 10.9 g/dL (12.0-15.0); Lymphocyte # 3.37 X10^3/ul (4.0); Lymphocyte % 49.3 % (19-41); Mean Corp Hgb Conc 32.9 g/dL (32-36); Mean Platelet Vol. 10.9 fl (6.2-12.0); Monocyte% 7.3 % (0-10); NRBC Flagged by Analyzer 0 % (0-5); Neutrophil # 2.63 X10^3/uL (2.7-7.7); Neutrophil % 38.6 % (47-70); Platelet Count 245 K/mm3 (150-450); RBC Distribution Width CV 11.9 % (11.6-14.6); RBC Distribution Width SD 38.5 fl (35.1-43.9); Red Blood Count 3.76 M/mm3 (4.2-5.4); White Blood Count 6.8 K/mm3 (4.4-11.0)
[2018-12-22] MEDS: 0.9% Normal Saline 1,000 ML 150 ML IV (06:05)
[2018-12-22 06:29] LABS: AST(SGOT) 14 U/L (15-37); Alanine Aminotransfer ALT/SGPT 24 U/L (13-56); Albumin, Serum 2.7 g/dL (3.2-5.0); Alkaline Phosphatase 40 U/L (45-117); Anion Gap 7 (5-15); BUN 9 mg/dL (7-18); BUN/Creat Ratio 10.8 RATIO (10-20); Calcium,Total 7.8 mg/dL (8.5-10.1); Chloride 106 mmol/L (98-107); Creatinine, Serum 0.83 mg/dL (0.55-1.02); EST Glomerular Filtration Rate 83 mL/min (>60); Est Glom Filt Rate - Afr Amer 100 mL/min (>60); Estimated Creatinine Clearance 105.74 ml/min; Globulin 2.8 g/dL (2.2-4.2); Glucose 139 mg/dL (74-106); Phosphorus 5.9 mg/dL (2.5-4.9); Potassium 3.6 mmol/L (3.5-5.1); Protein, Total 5.5 g/dL (6.4-8.2); Sodium Level 142 mmol/L (136-145)
--- NOTE | 2018-12-22 07:31 | PCM.PN.SRG ---
Patient Problems: Active and Suspected Problems (Last Updated 09/18/18 @ 09:39 by Maya Anderson) Hypocalcemia syndrome (Acute) Subjective: Patient feels much improved since last night, cramping of extremities is abated and no longer has tingling, still with generalized weakness hungry this morning, vocalization is normal - Physical Exam General: Alert, Oriented x3 Oral: Moist Mucosa Neck: Supple, - - wound is dry and intact, no surrounding erythema, minimal swelling Lungs: Normal air movement Vital Signs Temp Pulse Resp BP Pulse Ox 98.1 F 77 16 101/55 L 98 12/22/18 03:00 12/22/18 03:00 12/22/18 03:00 12/22/18 03:00 12/22/18 03:00 Oxygen Delivery Method Room Air Weight: 89.7 kg Body Mass Index (BMI) 27.6 Intake and Output for Last 24 Hours 12/20/18 12/21/18 12/22/18 23:59 23:59 23:59 Intake Total 1239.17 / 1239.17 2579 / 2579 Balance 1239.17 / 1239.17 2579 / 2579 Laboratory Tests Past 24 Hrs 12/21/18 12/21/18 12/21/18 19:20 19:20 19:20 WBC 9.2 RBC 4.20 Hgb 12.2 Hct 36.8 L MCV 87.6 MCH 29.0 MCHC 33.2 RDW Std Deviation 38.5 RDW Coeff of Jenn 12.0 Plt Count 292 MPV 11.1 Immature Gran % (Auto) Neut % (Auto) Lymph % (Auto) [place] % (Auto) Eos % (Auto) Baso % (Auto) Absolute Neuts (auto) Absolute Lymphs (auto) Nucleated RBC % Sodium 141 Potassium 3.5 Chloride 103 Carbon Dioxide 34.0 H Anion Gap 4 L BUN 9 Creatinine 0.96 Estim Creat Clear Calc 91.42 Est GFR (MDRD) Af Amer 85 Est GFR (MDRD) Non-Af 70 BUN/Creatinine Ratio 9.4 L Glucose 95 Calcium 8.4 L Ionized Calcium Phosphorus 6.6 H Magnesium 1.8 Total Bilirubin 0.10 L AST 16 ALT 28 Alkaline Phosphatase 48 Total Protein 6.9 Albumin 3.4 Globulin 3.5 Albumin/Globulin Ratio 1.0 PTH Intact 12/21/18 12/22/1819 19:20 05:38 05:38 WBC 6.8 RBC 3.76 L Hgb 10.9 L Hct 33.1 L MCV 88.0 MCH 29.0 MCHC 32.9 RDW Std Deviation 38.5 RDW Coeff of Jenn 11.9 Plt Count 245 MPV 10.9 Immature Gran % (Auto) 0.100 Neut % (Auto) 38.6 L Lymph % (Auto) 49.3 H [place] % (Auto) 7.3 Eos % (Auto) 4.0 Baso % (Auto) 0.7 Absolute Neuts (auto) 2.6 Absolute Lymphs (auto) 3.37 Nucleated RBC % 0 Sodium Potassium Chloride Carbon Dioxide Anion Gap BUN Creatinine Estim Creat Clear Calc Est GFR (MDRD) Af Amer Est GFR (MDRD) Non-Af BUN/Creatinine Ratio Glucose Calcium Ionized Calcium Pending Phosphorus Magnesium Total Bilirubin AST ALT Alkaline Phosphatase Total Protein Albumin Globulin Albumin/Globulin Ratio PTH Intact Pending 12/22/18 05:38 WBC RBC Hgb Hct MCV MCH MCHC RDW Std Deviation RDW Coeff of Jenn Plt Count MPV Immature Gran % (Auto) Neut % (Auto) Lymph % (Auto) [place] % (Auto) Eos % (Auto) Baso % (Auto) Absolute Neuts (auto) Absolute Lymphs (auto) Nucleated RBC % Sodium 142 Potassium 3.6 Chloride 106 Carbon Dioxide 29.0 Anion Gap 7 BUN 9 Creatinine 0.83 Estim Creat Clear Calc 105.74 Est GFR (MDRD) Af Amer 100 Est GFR (MDRD) Non-Af 83 BUN/Creatinine Ratio 10.8 Glucose 139 H Calcium 7.8 L Ionized Calcium Phosphorus 5.9 H Magnesium Total Bilirubin 0.30 AST 14 L ALT 24 Alkaline Phosphatase 40 L Total Protein 5.5 L Albumin 2.7 L Globulin 2.8 Albumin/Globulin Ratio 1.0 PTH Intact Medical Necessity - Tobacco Use Smoking Status: Current some day smoker Tobacco Use: Cigarettes Assessment/Plan All Active Problems (Last Updated 09/18/18 @ 09:39 by Maya Anderson) Hypocalcemia syndrome (Acute) Pharyngitis, acute (Acute) No significant past medical history (Acute) Impression: POD#4 s/p total thyroidectomy - admitted for symptomatic hypocalcemia - transient hypoparathyroidism with hypocalcemia Discussion/Plan: calcium last night was 8.4, has dropped to 7.8 this morning ionized calcium is pending which I suspect will be low will continue to replenish calcium patient rec'd vit D last night will start vit D oral this morning regular diet will recheck calcium later this morning anticipate discharge if can get better than normal calcium level appreciate Internal Medicine - Dr. Singleton - care of patient as I was unavailable last night
--- NOTE | 2018-12-22 09:26 | PN_ITS ---
Patient Problems: Active and Suspected Problems (Last Updated 09/18/18 @ 09:39 by Maya Anderson) Hypocalcemia syndrome (Acute) Subjective: Patient seen and examined. She was admitted with a complaint of muscle cramps, fatigue and confusion. Patient had total thyroidectomy on 12/18/2018 after she had FNA biopsy of a right thyroid nodule which showed atypical cells. She had been on oral calcium supplementation and states she started having the above symptoms. She contacted her surgeon Dr. Collier and she was told to increase her oral calcium supplementation. However his symptoms worsened and so she came into the ED. The ED, she had positive Chvostek sign as well as Trousseau sign and calcium levels 8.4. She was started on calcium chloride and admitted to be managed for symptomatic hypercalcemia likely iatrogenic from thyroid surgery. Patient still complains of some numbness and tingling in her arms. She still feels very tired. Review of systems otherwise negative. Labs and vitals reviewed. Calcium is down to 7.8 today. Ionized calcium is still pending. Vitals/I&O's: Vital Signs Temp Pulse Resp BP Pulse Ox 98.1 F 77 16 101/55 L 96 12/22/18 03:00 12/22/18 03:00 12/22/18 03:00 12/22/18 03:00 12/22/18 07:00 Oxygen Delivery Method Room Air Weight: 197 lb 12.074 oz Body Mass Index (BMI) 27.6 Intake and Output for Last 24 Hours 12/20/18 12/21/18 12/22/18 23:59 23:59 23:59 Intake Total 1239.17 / 1239.17 2579 / 2579 Balance 1239.17 / 1239.17 2579 / 2579 General: Alert, Oriented x3, Cooperative, No apparent distress HEENT: Atraumatic, PERRLA, EOMI, Normocephalic Oral: Moist Mucosa Neck: Supple, No JVD, Negative Carotid Bruits Lungs: Clear to auscultation, Normal air movement, No rhonchi, No wheeze Cardiovascular: Regular rate, Regular Rhythm, Normal S1, Normal S2, No murmurs Abdomen: Bowel Sounds Present, Soft, Non Tender, Non-Distended, No Hepato- splenomegaly Extremities: No clubbing, No cyanosis, No edema, Capillary Refill Less than 3 Seconds Skin: - - healing thyroidectomy scar Musculoskeletal: No Tenderness to Palpation of Joints or Extremities, - - ppsitive Chvostek's sign. Lymphatic: No Cervical, Supraclavicular, or Inguinal Adenopathy Neurological: Cranial nerves II-XII grossly intact, Neuro grossly intact, Motor Exam 5/5 strength throughout Psych/Mental Status: Normal Affect, Appropriate, Alert and oriented to time, place, person, mood and affect Laboratory Results 12/21/18 19:20: WBC 9.2, RBC 4.20, Hgb 12.2, Hct 36.8 L, MCV 87.6, MCH 29.0, MCHC 33.2, RDW Std Deviation 38.5, RDW Coeff of Jenn 12.0, Plt Count 292, MPV 11.1 12/21/18 19:20: Sodium 141, Potassium 3.5, Chloride 103, Carbon Dioxide 34.0 H, Anion Gap 4 L, BUN 9, Creatinine 0.96, Estim Creat Clear Calc 91.42, Est GFR (MDRD) Af Amer 85, Est GFR (MDRD) Non-Af 70, BUN/Creatinine Ratio 9.4 L, Glucose 95, Calcium 8.4 L, Total Bilirubin 0.10 L, AST 16, ALT 28, Alkaline Phosphatase 48, Total Protein 6.9, Albumin 3.4, Globulin 3.5, Albumin/Globulin Ratio 1.0 12/21/18 19:20: Phosphorus 6.6 H, Magnesium 1.8 12/21/18 19:20: PTH Intact Pending 12/22/18 05:38: Ionized Calcium Pending 12/22/18 05:38: WBC 6.8, RBC 3.76 L, Hgb 10.9 L, Hct 33.1 L, MCV 88.0, MCH 29.0, MCHC 32.9, RDW Std Deviation 38.5, RDW Coeff of Jenn 11.9, Plt Count 245, MPV 10.9, Immature Gran % (Auto) 0.100, Neut % (Auto) 38.6 L, Lymph % (Auto) 49.3 H, [place] % (Auto) 7.3, Eos % (Auto) 4.0, Baso % (Auto) 0.7, Absolute Neuts (auto) 2.6, Absolute Lymphs (auto) 3.37, Nucleated RBC % 0 09/13/19 05:38: Sodium 142, Potassium 3.6, Chloride 106, Carbon Dioxide 29.0, Anion Gap 7, BUN 9, Creatinine 0.83, Estim Creat Clear Calc 105.74, Est GFR (MDRD) Af Amer 100, Est GFR (MDRD) Non-Af 83, BUN/Creatinine Ratio 10.8, Glucose 139 H, Calcium 7.8 L, Phosphorus 5.9 H, Total Bilirubin 0.30, AST 14 L, ALT 24, Alkaline Phosphatase 40 L, Total Protein 5.5 L, Albumin 2.7 L, Globulin 2.8, Albumin/Globulin Ratio 1.0 Current Medications Acetaminophen (Tylenol) 650 mg PO Q6H PRN PRN PRN Reason: Non-cardiac pain (mod-severe) Last Admin: 12/21/18 23:10 Dose: 650 mg Documented by: Hydrocodone Bitart/Acetaminophen (Buena 5mg-325mg) 1 - 2 tablet PO Q4H PRN PRN PRN Reason: MOD-SEVERE PAIN (4-10) Last Admin: 12/22/18 03:03 Dose: 1 tablet Documented by: Al Hydroxide/Mg Hydroxide (Mylanta Ii) 15 - 30 ml PO Q4H PRN PRN PRN Reason: INDIGESTION Albuterol Sulfate (Ventolin Aerosols) 2.5 mg INHALATION Q2H PRN PRN PRN Reason: dyspnea, wheezing Calcium Carbonate (Tums) 1,000 mg PO Q6 YASEMIN Cholecalciferol (Vitamin D) 2,000 unit PO DAILY YASEMIN Cyclobenzaprine HCl (Flexeril) 10 mg PO TID PRN PRN PRN Reason: PAIN Last Admin: 12/21/18 23:10 Dose: 10 mg Documented by: Dextrose (D50w Syringe) 0 gm IV X1 PRN; Protocol PRN Reason: Hypoglycemia Glucagon () 1 mg IM .X1 PRN PRN Reason: Hypoglycemia Hydralazine HCl (Apresoline Iv) 10 mg IV Q4H PRN PRN PRN Reason: SBP > 160 Sodium Chloride () 1,000 mls @ 150 mls/hr IV .Q6H40M YASEMIN Last Admin: 12/22/18 06:05 Dose: 150 mls/hr Documented by: Calcium Gluconate 2 gm/ (Dextrose) 120 mls @ 60 mls/hr IV X1 ONE Stop: 12/22/18 10:29 Levothyroxine Sodium (Synthroid) 150 mcg PO DAILY@0600 YASEMIN Last Admin: 12/22/18 05:03 Dose: 150 mcg Documented by: Magnesium Hydroxide (Milk Of Magnesia) 30 ml PO DAILY PRN PRN Reason: Constipation Morphine Sulfate () 1 - 2 mg IV Q4H PRN PRN PRN Reason: PAIN Ondansetron HCl (Zofran) 4 mg IV Q8H PRN PRN PRN Reason: NAUSEA/VOMITING Sodium Chloride () 10 - 40 ml IV UD PRN PRN Reason: SALINE FLUSH Last Admin: 12/21/18 23:10 Dose: 20 ml Documented by: Medical Necessity - Tobacco Use Smoking Status: Current some day smoker Tobacco Use: Cigarettes Assessment/Plan All Active Problems (Last Updated 09/18/18 @ 09:39 by Maya Anderson) Hypocalcemia syndrome (Acute) Pharyngitis, acute (Acute) No significant past medical history (Acute) 1. Acute symptomatic hypocalcemia * iatrogenic, due to recent total thyroidectomy * says she was told by surgeon that her parathyroids were intact, and were most likely asleep from the surgery * calcium this morning is 7.8, corrected for albumin of 2.7, is 8.8 * however, patient still has positive Chvostek's sign * will continue replenishing calcium IV * started on Oral vitamin D supplements; will continue * ionised calcium pending * 2. Hypothyroidism: due to total thyroidectomy. On synthroid 3. degenerative disc disease with chronic back pain: on Tylenol and Buena. 4. Nicotine dependence: Counseled to quit. DVT prophylaxis: SCDs Code Visit Inpatient E&M: 62887 Subs Hosp L2
--- NOTE | 2018-12-22 10:15 | CASEMGMT ---
RN MALU Face to Face with patient for initial transition planning/care coordination assessment. RN CM introduced self and role at [facility]. Patient lying in bed, alert and oriented, family at bedside. Patient willing to participate in assessment and is able to answer all questions appropriately. Care providers, pharmacy, and demographics verified. Patient wishes to discharge home, denies need for home health at this time. Patient states she has no further needs or concerns at this time. CM to follow for discharge planning needs that may arise. PCP: Magdalena Specialists: surgeon Kaleb Collier Pharmacy: [facility] Insurance: [employer] Prescription Benefit: yes Living Will/HPOA: none LNOK: children, mother Living Arrangements: Patient lives with her 4 children in a home. Patient is independent at home. Transportation: mother DME/HHC: Paitent denies any DME in the home. Denies previous HHC. Disposition Plan: Patient to discharge home with family support and follow-up plans in place. Rona BOYCE, RN, CM
[2018-12-22 12:10] LABS: Calcium,Total 8.2 mg/dL (8.5-10.1)
[2018-12-22] MEDS: Calcium Carbonate 500 MG Tablet 1000 MG PO ×3 (12:43→23:02)
--- NOTE | 2018-12-22 15:47 | NURSING ---
ATTEMPTED IV RESTART X2 AT PRIMARY rn REQUEST. PT STATES IV WAS LEAKING AND WOULDN'T FLUSH. iv SITE IN RAC REDRESSED AND WAS ABLE TO FLUSH, GOOD BLOOD RETURN. NO LEAKING NOTED. IVF RESUMED. NET DRESSING APPLIED AT PT'S REQUEST. PT ASSISTED TO BATHROOM, BACK TO BED AND C/O NAUSEA AND SL.DIZZINESS. HOB LOWERED. VS CHECKED, PT STATES FEELS BETTER JUST HOT. COOL WASHCLOTHE GIVEN. DENIES ALL FURTHER NEEDS. CALL LIGHT IWTHISally YOUNG. PRIMARY RN UPDATED.
[2018-12-22] MEDS: LORazepam 0.5 MG Tablet PO (17:39)
[2018-12-22 18:01] LABS: Calcium,Total 8.6 mg/dL (8.5-10.1)
[2018-12-23 00:19] VITALS: PULSE 64
[2018-12-23 02:25] VITALS: BP 107/62; PULSE 67; RESP 18; TEMP 36.6; O2SAT 99
[2018-12-23] MEDS: HYDROcodone Bitartrate/Apap 5/325 Tablet PO ×2 (03:56→08:04)
[2018-12-23 05:02] VITALS: PULSE 66
[2018-12-23] MEDS: Levothyroxine 150 MCG Tablet PO (05:41)
[2018-12-23] MEDS: Calcium Carbonate 500 MG Tablet 1000 MG PO ×2 (05:42→10:18)
--- NOTE | 2018-12-23 07:14 | PCM.PN.SRG ---
Patient Problems: Active and Suspected Problems (Last Updated 09/18/18 @ 09:39 by Maya Anderson) Hypocalcemia syndrome (Acute) Subjective: Patient states that she feels much improved, last calcium was normal at 8.6 has some soreness but no muscle cramping or tingling - Physical Exam General: Alert, Oriented x3 HEENT: Atraumatic Oral: Moist Mucosa Neck: Supple, - - wound is intact without drainage no evidence of infection Vital Signs Temp Pulse Resp BP Pulse Ox 97.9 F 66 18 107/62 99 12/23/18 02:25 12/23/18 05:02 12/23/18 02:25 12/23/18 02:25 12/23/18 02:25 Oxygen Delivery Method Room Air Weight: 89.7 kg Body Mass Index (BMI) 27.6 Intake and Output for Last 24 Hours 12/21/18 12/22/18 12/23/18 23:59 23:59 23:59 Intake Total 1239.17 / 1239.17 3819 / 4119 500 / 500 Balance 1239.17 / 1239.17 3819 / 4119 500 / 500 Laboratory Tests Past 24 Hrs 12/21/18 12/22/18 12/22/18 19:20 11:35 17:25 Calcium 8.2 L 8.6 PTH Intact 2.0 L Medical Necessity - Tobacco Use Smoking Status: Current some day smoker Tobacco Use: Cigarettes Assessment/Plan All Active Problems (Last Updated 09/18/18 @ 09:39 by Maya Anderson) Hypocalcemia syndrome (Acute) Pharyngitis, acute (Acute) No significant past medical history (Acute) Impression: POD#5 s/p total thyroidectomy - admitted for symptomatic hypocalcemia - transient hypoparathyroidism with hypocalcemia Discussion/Plan: calcium last night was 8.6 - normal calcium this morning is pending - if normal - can discharge to home today will follow with patient on Tuesday and recheck serum calcium
--- NOTE | 2018-12-23 07:20 | DCINST_ITS ---
Discharge Diet: No Restrictions - drink plenty of fluids Discharge Activity: Return to Normal Activity Call your doctor if your incision/area has: Continuous Slow Oozing, Foul Smelling Discharge Call your doctor if you observe: Fever of 101 or Higher Additional Dressing/Incision Instructions:: May get wet in shower. Do not soak - no tub baths/swimming Additional Instructions: Take two TUMS every 4 hours while awake Allergies/Adverse Reactions: Allergies codeine Allergy (Verified 12/21/18 22:04) can't sleep; itching fluoxetine [From Prozac] Allergy (Verified 12/21/18 22:04) causes manic state naproxen Allergy (Verified 12/21/18 22:04) nose bleed Medications to take at Discharge Albuterol Inhaler [Ventolin Hfa (SP)] 1 - 2 puff INHALATION Q4H PRN PRN 12/08/18 Ibuprofen 400 mg PO DAILY PRN PRN 12/08/18 Lactobacillus Acidophilus [Probiotic] 1 ea PO DAILY 12/08/18 cycloBENZAPRine HCl [Flexeril] 10 mg PO TID PRN PRN 12/08/18 Hydrocodone Bitart/Apap 5-325 [[place] 5MG-325MG] 1 tab PO Q8H PRN PRN 5 Days #15 tab 12/19/18 Levothyroxine [Synthroid] 150 mcg PO DAILY #30 tab 12/19/18 Calcitriol 0.5 mcg PO DAILY 14 Days #14 cap 12/23/18 The following prescriptions were given: Calcitriol 0.5 mcg PO DAILY 14 Days #14 cap Prescription Printed Primary Care Physician: Shauna Nichols MD [Primary Care Provider] - Test Results: Test results from this visit will be discussed in further detail at your follow- up appointment, if applicable. Please Follow Up With: Susan Collier MD - When: to be seen on Tuesday, time already given
[2018-12-23] MEDS: Calcitriol 0.25 MCG Capsule 0.5 MCG PO (08:03)
[2018-12-23 08:21] LABS: Anion Gap 5 (5-15); BUN 13 mg/dL (7-18); BUN/Creat Ratio 16.1 RATIO (10-20); Calcium,Total 8.6 mg/dL (8.5-10.1); Chloride 103 mmol/L (98-107); EST Glomerular Filtration Rate 86 mL/min (>60); Est Glom Filt Rate - Afr Amer 104 mL/min (>60); Glucose 92 mg/dL (74-106); Magnesium 1.8 mg/dL (1.6-2.6); Potassium 3.9 mmol/L (3.5-5.1); Sodium Level 140 mmol/L (136-145)
[2018-12-23 08:25] VITALS: BP 107/68; PULSE 63; RESP 16; TEMP 36.6; O2SAT 99
[2018-12-23 08:58] VITALS: PULSE 69
--- NOTE | 2018-12-23 09:44 | DCINST_ITS ---
- Discharge Diagnoses Current Active Problems: Current Active and Chronic Problems (Last Updated 09/18/18 @ 09:39 by Maya Anderson) Hypocalcemia syndrome (Acute) Hypothyroidism (Chronic) Chronic pain (Chronic) DDD (degenerative disc disease) (Chronic) Tobacco use (Chronic) You will use the following diet at home:: No restrictions Your food should be the consistency of: Regular Your liquids should be the consistency of: Regular/Thin Discharge Activity: Return to Normal Activity Weight Bearing Status: Weight bearing as tolerated Call your doctor if your incision/area has: Continuous Slow Oozing, Foul Smelling Discharge Call your doctor if you observe: Fever of 101 or Higher, - - numbness, tingling Additional Dressing/Incision Instructions:: May get wet in shower. Do not soak - no tub baths/swimming Instructions: Hypocalcemia, Parathyroid Hormone Additional Instructions: follow up with DR Collier on Tuesday12/25/18 for repeat CMP Allergies/Adverse Reactions: Allergies codeine Allergy (Verified 12/21/18 22:04) can't sleep; itching fluoxetine [From Prozac] Allergy (Verified 12/21/18 22:04) causes manic state naproxen Allergy (Verified 12/21/18 22:04) nose bleed Medications to take at Discharge Albuterol Inhaler [Ventolin Hfa] 1 - 2 puff INHALATION Q4H PRN PRN 12/08/18 Ibuprofen 400 mg PO DAILY PRN PRN 12/08/18 Lactobacillus Acidophilus [Probiotic] 1 ea PO DAILY 12/08/18 cycloBENZAPRine HCl [Flexeril] 10 mg PO TID PRN PRN 12/08/18 Hydrocodone Bitart/Apap 5-325 [[place] 5/325] 1 tab PO Q8H PRN PRN 5 Days #15 tab 12/19/18 Levothyroxine [Synthroid] 150 mcg PO DAILY #30 tab 12/19/18 Calcitriol 0.5 mcg PO DAILY 14 Days #14 cap 12/23/18 Calcium Carbonate [Tums] 500 mg PO BIDCM #60 tablet 12/23/18 The following prescriptions were given: Calcitriol 0.5 mcg PO DAILY 14 Days #14 cap Prescription Printed Calcium Carbonate [Tums] 500 mg PO BIDCM #60 tablet Primary Care Physician: Shauna Nichols MD [Primary Care Provider] - Please follow up with your Primary Care Physician in: one week Test Results: Test results from this visit will be discussed in further detail at your follow- up appointment, if applicable. Please Follow Up With: Susan Collier MD - When: to be seen on Tuesday, time already given Proposed Discharge Date: 12/23/18
--- NOTE | 2018-12-23 14:55 | PCM.DC.SUM ---
Discharge Date and Diagnosis Date of Admission: 12/21/18 Date of Discharge: 12/23/18 - Primary Discharge Diagnosis hypocalcemia - Secondary Discharge Diagnosis Chronic Problems (Last Updated 09/18/18 @ 09:39 by Maya Anderson) Hypothyroidism (Chronic) Chronic pain (Chronic) DDD (degenerative disc disease) (Chronic) Tobacco use (Chronic) Hospital Course and Treatment general surgery- Dr Collier Operations: None Procedures: None Summary of Care Provided: The patient is a 33 year old F admitted on 12/21/18 with a complaint of muscle cramps, fatigue and confusion. Patient had total thyroidectomy on 12/18/2018 after she had FNA biopsy of a right thyroid nodule which showed atypical cells. She had been on oral calcium supplementation and states she started having the above symptoms. She contacted her surgeon Dr. Collier and she was told to increase her oral calcium supplementation. However her symptoms worsened and so she came into the ED. The ED, she had positive Chvostek sign as well as Trousseau sign and calcium levels 8.4. She was started on calcium chloride and admitted to be managed for symptomatic hypercalcemia likely iatrogenic from thyroid surgery. Calcium was successfully replaced and she was also started on oral calcitriol to replace vitamin D. Patient's numbness and tingling resolved and she was taken to Zosyn and also resolved. She remained stable and was discharged home on 12/23/2018. At time of discharge, calcium level was 8.6. She was discharged with calcium supplements and oral vitamin D supplements. She is to follow-up with her primary care doctor and also to follow-up with general surgery within 1 month. Patient seen and examined prior to discharge. She felt much better and had no complaints. Review of systems is otherwise negative. Labs and vitals reviewed. Home medication reviewed and reconciled. o/e: Vital Signs Height 5 ft 11 in Weight: 197 lb 12.074 oz Weight in Pounds 197.8 lbs Pulse Ox 99 Temperature 97.8 F Pulse Rate 69 Respiratory Rate 16 Blood Pressure [BP] 104/65 Blood Pressure 107/68 Blood Pressure Position [BP] Semi-Fowlers Blood Pressure Position Semi-Fowlers General: Alert, Oriented x3, Cooperative, No apparent distress HEENT: Atraumatic, PERRLA, EOMI, Normocephalic Oral: Moist Mucosa Neck: Supple, No JVD, Negative Carotid Bruits Lungs: Clear to auscultation, Normal air movement, No rhonchi, No wheeze Cardiovascular: Regular rate, Regular Rhythm, Normal S1, Normal S2, No murmurs Abdomen: Bowel Sounds Present, Soft, Non Tender, Non-Distended, No Hepato-splenomegaly Extremities: No clubbing, No cyanosis, No edema, Capillary Refill Less than 3 Seconds Skin: - - healing thyroidectomy scar Musculoskeletal: No Tenderness to Palpation of Joints or Extremities, Lymphatic: No Cervical, Supraclavicular, or Inguinal Adenopathy Neurological: Cranial nerves II-XII grossly intact, Neuro grossly intact, Motor Exam 5/5 strength throughout Psych/Mental Status: Normal Affect, Appropriate, Alert and oriented to time, place, person, mood and affect Plan as above. - Physical Exam Vital Signs Temp Pulse Resp BP Pulse Ox 97.8 F 69 16 107/68 99 12/23/18 08:25 12/23/18 08:58 12/23/18 08:25 12/23/18 08:25 12/23/18 08:25 Oxygen Delivery Method Room Air Weight: 197 lb 12.074 oz Body Mass Index (BMI) 27.6 Intake and Output for Last 24 Hours 12/21/18 12/22/18 12/23/18 23:59 23:59 23:59 Intake Total 1239.17 / 1239.17 3819 / 4119 500 / 500 Balance 1239.17 / 1239.17 3819 / 4119 500 / 500 Laboratory Tests Past 24 Hrs 12/22/18 12/23/18 17:25 07:05 Sodium 140 Potassium 3.9 Chloride 103 Carbon Dioxide 32.0 Anion Gap 5 BUN 13 Creatinine 0.80 Estim Creat Clear Calc 109.70 Est GFR (MDRD) Af Amer 104 Est GFR (MDRD) Non-Af 86 BUN/Creatinine Ratio 16.1 Glucose 92 Calcium 8.6 8.6 Magnesium 1.8 Discharge Diet: No Restrictions - drink plenty of fluids Discharge Activity: Return to Normal Activity Weight Bearing Status: Weight bearing as tolerated Call your doctor if your incision/area has: Continuous Slow Oozing, Foul Smelling Discharge Call your doctor if you observe: Fever of 101 or Higher, - - numbness, tingling Additional Dressing/Incision Instructions:: May get wet in shower. Do not soak - no tub baths/swimming Home Medications: Medications to take at Discharge Albuterol Inhaler [Ventolin Hfa] 1 - 2 puff INHALATION Q4H PRN PRN 12/08/18 Ibuprofen 400 mg PO DAILY PRN PRN 12/08/18 Lactobacillus Acidophilus [Probiotic] 1 ea PO DAILY 12/08/18 cycloBENZAPRine HCl [Flexeril] 10 mg PO TID PRN PRN 12/08/18 Hydrocodone Bitart/Apap 5-325 [[place] 5/325] 1 tab PO Q8H PRN PRN 5 Days #15 tab 12/19/18 Levothyroxine [Synthroid] 150 mcg PO DAILY #30 tab 12/19/18 Calcitriol 0.5 mcg PO DAILY 14 Days #14 cap 12/23/18 Calcium Carbonate [Tums] 500 mg PO BIDCM #60 tab 12/23/18 Following Prescrptions Were Given to Patient: Calcitriol 0.5 mcg PO DAILY 14 Days #14 cap Transmission Status: Received by [facility] [place] Calcium Carbonate [Tums] 500 mg PO BIDCM #60 tab Transmission Status: Received by [facility] [place] #[facility] Primary Care Physician: Shauna Nichols MD [Primary Care Provider] - Please follow up with your Primary Care Physician in: one week Please Follow Up With: Susan Collier MD - When: to be seen on Tuesday, time already given Patient Instructions: Parathyroid Hormone, Hypocalcemia Additional Instructions: Take two TUMS every 4 hours while awake Disposition: Home Minutes spent on discharge:: 35 Patient Condition:: Good Medical Necessity - Tobacco Use Smoking Status: Current some day smoker Tobacco Use: Cigarettes Meaningful Use Info Meaningful Use Diagnoses (Choose all that apply): None applicable Code Visit Inpatient E&M: 20377 Disch Hosp
--- NOTE | 2018-12-25 15:35 | CASEMGMT ---
MARIBEL CM Discharge Follow-up Phone Call: THIAGO: Vin Strata: 4 Call Date: 12/25/18 Discharge Date: 12/23/18 Time of Call: 1530 Duration: 3 minutes ? Admitting Diagnosis: Hypocalcemia Discharge follow-up call completed with pt. Pt states her symptoms are improved, but reports now having vertigo. States she followed up with Dr. Collier this morning and that her Calcium was pretty good. States Dr. Collier added Vit D to her regimen and pt is to follow-up with Dr. Collier again on Tuesday. Pt states she is continuing to take her medications as prescribed including the calcitriol each morning and the tums every 4 hours. Pt denies any other questions or complaints.
== END 2018-12-23 10:31 | disposition home or self-care (01) | DRG 404 ==
LOC: ED 19:17 → MS3 21:18 → PCU 08-22 08:30
PROVIDERS: Surgery; Admitting Provider Family Medicine; Emergency Provider Emergency Medicine; Family Provider Internal Medicine; PCP Internal Medicine; Visit Provider Student in an Organized Health Care Education/Training Program
DX: E83.51 Hypocalcemia (principal); E89.0 Postprocedural hypothyroidism; G89.29 Other chronic pain; F17.210 Nicotine dependence, cigarettes, uncomplicated; Z79.890 Hormone replacement therapy; Z79.899 Other long term (current) drug therapy; E04.1 Nontoxic single thyroid nodule; K21.9 Gastro-esophageal reflux disease without esophagitis; K44.9 Diaphragmatic hernia without obstruction or gangrene; E16.2 Hypoglycemia, unspecified; F31.9 Bipolar disorder, unspecified
CPT/HCPCS: 00320; 60220; 36415; 80048; 80053; 82310; 82330; 83735; 83970; 84100; 85025; 85027; 88307; 88341; 88342; 93005; 96361; 96374; 96375; 99218; 99284; 99406; J7030; J7050; J7120; A4216; G0378; G0379; J0610; J2405; J3490

== ENCOUNTER 2019-01-12 18:39 | Emergency (ER) | payer MEDICAID, SELFPAY ==
[2018-12-21 22:00] VITALS: BMI 27.6
[2019-01-12 18:40] VITALS: BP 124/79; PULSE 84; RESP 18; TEMP 36.1; O2SAT 100; BMI 27.2
--- NOTE | 2019-01-12 19:47 | ED.RN ---
1944 PT CAME UP TO NURSE IN TRIAGE STATING: I'M GOING TO GO HOME AND FIGURE SOMETHING OUT. I AIN'T WORRIED ABOUT IT. SON ENCOURAGED HER TO STAY SHE WAS THE NEXT UP BUT SHE INSISTED ON GOING HOME.
== END 2019-01-12 19:45 | disposition left against medical advice (07) ==
LOC: ED 20:28
PROVIDERS: Emergency Provider Emergency Medicine; Family Provider Internal Medicine; PCP Internal Medicine
DX: R69 Illness, unspecified (principal); Z53.21 Procedure and treatment not carried out due to patient leaving prior to being seen by health care provider

== ENCOUNTER 2019-01-15 12:36 | Emergency (ER) | payer MEDICAID, SELFPAY ==
[2019-01-15 12:37] VITALS: BP 126/74; PULSE 86; RESP 16; TEMP 36.3; O2SAT 100; BMI 27.2
[2019-01-15 13:21] LABS: Anion Gap 7 (5-15); BUN 9 mg/dL (7-18); BUN/Creat Ratio 11.2 RATIO (10-20); Calcium,Total 7.5 mg/dL (8.5-10.1); Chloride 104 mmol/L (98-107); EST Glomerular Filtration Rate 86 mL/min (>60); Est Glom Filt Rate - Afr Amer 105 mL/min (>60); Estimated Creatinine Clearance 106.14 ml/min; Glucose 101 mg/dL (74-106); Potassium 3.6 mmol/L (3.5-5.1); Sodium Level 140 mmol/L (136-145)
[2019-01-15 13:22] VITALS: BP 114/75; PULSE 88; RESP 18; O2SAT 99
[2019-01-15 13:57] LABS: Magnesium 1.9 mg/dL (1.6-2.6)
--- NOTE | 2019-01-15 14:55 | ED.VISSUMM ---
- ER Visit Summary Date of Service: 01/15/19 Chief Complaint: Paresthesias History of Present Illness: The patient is a 33 F who tells me that a little over a month ago she underwent a thyroidectomy with Dr. Collier. Short time after the surgery she was hospitalized due to hypocalcemia. She tells me she has been taking Os-Darion and last had blood work drawn came back at 8 increased her Os-Darion to twice in the morning twice at night. She comes in today reporting a new [place] around objects when she looked at them as well as tingling in her fingers toes and perioral and as well as her legs. She also notes some muscle spasms. Tells me that she was checked into the emergency department on Tuesday but left without being seen. Physical Examination: Afebrile vital signs are stable Gen: Well-nourished well-developed Head: Normocephalic atraumatic Eyes: Perrl EOMI ENT: TMs clear no rhinorrhea moist mucous membranes Neck: Supple no lymphadenopathy no JVD nontender CVS: Regular rate rhythm no murmurs normal S1-S2 Respiratory: No distress clear to auscultation bilaterally chest nontender Abdomen: Soft nontender nondistended normal bowel sounds no masses Back: Nontender Extremity: Nontender no edema Skin: Normal color no rash Neuro: alert orientated ?3 CN II-XII intact normal strength sensation Psych: Normal affect normal mood Test Results: None ionized calcium at 7.5. Magnesium is normal. Emergency Department Course and Treatment: The patient received 2 g of calcium gluconate. I discussed the case with Dr. Collier. She recommends the patient increase her Os-Darion to 2 tablets 3 times a day. Impression: 1. Hypocalcemia This note was generated with [employer] dictation software. It may contain incorrect words, spelling, and punctuation that were not noted in review of the chart prior to signing ED Disposition - Plan for ED Patient: Disposition: Home or Assisted Living Instructions: Hypocalcemia Referrals: Susan Collier MD [STAFF PHYSICIAN] - Keep Jennifer appointment Additional Instructions: You are to increase your Os-Darion tablets 2 tablets 3 times a day
[2019-01-15 15:22] VITALS: BP 120/83; PULSE 73; RESP 15; O2SAT 100
[2019-01-15 16:17] VITALS: BP 111/67; PULSE 68; RESP 16; O2SAT 98
== END 2019-01-15 16:17 | disposition home or self-care (01) ==
PROVIDERS: Emergency Provider Emergency Medicine; Family Provider Internal Medicine; PCP Internal Medicine
DX: E83.51 Hypocalcemia (principal)
CPT/HCPCS: 80048; 82330; 83735; 96365; 99284; J0610

== ENCOUNTER 2019-01-29 08:28 | Emergency (ER) | payer MEDICAID, SELFPAY ==
[2019-01-29 08:29] VITALS: BP 131/90; PULSE 90; RESP 16; TEMP 36.8; O2SAT 99; BMI 27.2
--- NOTE | 2019-01-29 08:55 | ED.VISSUMM ---
- ER Visit Summary Date of Service: 01/29/19 Chief Complaint: Back pain History of Present Illness: The patient is a 33 F disc disease and prior thyroidectomy for benign nodules. Patient states that she is developed low back pain yesterday. No fall or trauma. No fever. No bowel or bladder incontinence or retention. Has had similar back pain before. No prior back surgery. Physical Examination: Young female no acute distress vital signs are stable. She is afebrile. H EENT exam unremarkable. Neck nontender. Lungs clear to auscultation bilaterally. Heart regular rhythm no murmur. Abdomen soft nontender normal bowel sounds no peritoneal signs. Extremities moves all 4. Neurovascularly intact. No cauda equina. No saddle anesthesia. Negative straight leg raise bilaterally. Back exam both the upper and lower back are tender to palpation. There is no ecchymosis or bruising. No redness or warmth. No bony deformities. Neurologically she is awake alert with no focal motor or sensory deficits. No signs of cauda equina. No saddle anesthesia. Dorsi and plantar flexion intact. Equal and symmetrical passenger relations representative strength. Test Results: None Emergency Department Course and Treatment: Patient with known history of degenerative disc disease. Treated with IM Toradol and p.o. [place]. Has a ride home. She requested also to be started on prednisone which is worked well for her in the past. Treatment Plan: Prednisone 40 times a day for 7 days. Follow-up with your doctor. Return if bowel or bladder incontinence or with leg weakness. Disposition: Discharge Impression: Acute on chronic low back pain History of degenerative disc disease This note was generated with [employer] dictation software. It may contain incorrect words, spelling, and punctuation that were not noted in review of the chart prior to signing ED Disposition - Plan for ED Patient: Referrals: Shauna Nichols MD [Primary Care Provider] -
--- NOTE | 2019-01-29 08:58 | ED.DEP ---
ED Disposition - Plan for ED Patient: Disposition: Home or Assisted Living Instructions: BACK PAIN (Acute or Chronic) Prescriptions: Prednisone [Deltasone] 40 mg PO DAILY 7 Days #7 tab Prescription Printed Referrals: Shauna Nichols MD [Primary Care Provider] - 1 Week if not improving Additional Instructions: Is a 40 mg/day. Follow-up with your doctor. Return to the ER if you develop weakness or bowel or bladder incontinence or retention.
[2019-01-29] MEDS: Ketorolac 60 MG/2 ML Vial IM (09:02)
[2019-01-29] MEDS: HYDROcodone Bitartrate/Apap 5/325 Tablet PO (09:03)
== END 2019-01-29 09:24 | disposition home or self-care (01) ==
LOC: ED 09:10
PROVIDERS: Emergency Provider Emergency Medicine; Family Provider Internal Medicine; PCP Internal Medicine
DX: M54.5 Low back pain (principal); G89.29 Other chronic pain; Z72.0 Tobacco use
CPT/HCPCS: 96372; 99283

== ENCOUNTER 2019-02-12 22:01 | Emergency (ER) | payer MEDICAID, SELFPAY ==
[2019-01-29 14:28] VITALS: BMI 27.2
[2019-02-12 22:01] VITALS: BP 111/73; PULSE 81; RESP 16; TEMP 36.4; O2SAT 97; BMI 27.8
[2019-02-12 22:35] VITALS: BP 123/68; RESP 16; TEMP 36.4; O2SAT 99
--- NOTE | 2019-02-12 22:55 | EKG12_ITS ---
Test Reason : HYPOKALCEMIA Blood Pressure : / mmHG Vent. Rate : 069 BPM Atrial Rate : 069 BPM P-R Int : 156 ms QRS Dur : 090 ms QT Int : 452 ms P-R-T Axes : 066 042 044 degrees QTc Int : 484 ms Normal sinus rhythm Prolonged QT Abnormal ECG Confirmed by BIBI BONNER, SUSAN ([id number]), make up editor CELIA BYRD ([id number]) on 02/14/2019 11:09:20 AM Referred By: SONIA Confirmed By:SUSAN MTZ MD
--- NOTE | 2019-02-12 23:02 | ED.VIS.GEN ---
History of Present Illness Chief Complaint: Abn Labs Narrative: Patient is a 33-year-old female who presents with hypocalcemia. She had thyroid enlargement and biopsy was suspicious for malignancy. However on final pathology after thyroidectomy it was not malignant. She has had problems with hypocalcemia ever since her surgery. She is on calcium supplementation. She complains of muscle spasms and cramping as well as paresthesias. She had outpatient lab work and was told that her calcium was very low. Her primary care physician advised her of the results and advised her to either take extra calcium or to go to the emergency department. Given her symptoms she presented here for further treatment and evaluation. She does note that her primary intends to refer her to endocrinology. She denies any chest pain shortness of breath nausea vomiting diarrhea or other recent illness. Past Medical History - Allergies and Home Meds Allergies/Adverse Reactions: Allergies codeine Allergy (Verified 02/12/19 22:03) can't sleep; itching fluoxetine [From Prozac] Allergy (Verified 02/12/19 22:03) causes manic state naproxen Allergy (Verified 02/12/19 22:03) nose bleed Primary Care Physician: Levi Kent MD [Primary Care Provider] - Past Medical History: - - Hypothyroidism, hypocalcemia Surgical History: - - Thyroidectomy, partial hysterectomy, L facial cyst removal, R elbow surgery. Smoking Status: Current every day smoker - Family History Maternal Family History: Family History (Last Updated 01/29/19 @ 14:25 by Nory Paulino) Father Alcoholism Mother Anemia Depression Hypertension Hyperlipemia Diabetes Grandfather Diabetes Myocardial infarction Grandmother Breast cancer Diabetes Family History: Reports: Diabetes, Hypertension Paternal Family History: Family History (Last Updated 01/29/19 @ 14:25 by Nory Paulino) Father Alcoholism Mother Anemia Depression Hypertension Hyperlipemia Diabetes Grandfather Diabetes Myocardial infarction Grandmother Breast cancer Diabetes Family History: Reports: Diabetes, Hypertension Review of Systems All systems negative except as indicated General: Denies: Fever Cardiovascular: Denies: Chest pain Respiratory: Denies: Dyspnea Musculoskeletal: Reports: - - Muscle spasm/cramps Neurological: Reports: Parasthesia Physical Exam Vital Signs/Narrative: Vital Signs Temp Pulse Resp BP BP Pulse Ox 02/12/19 22:35 97.6 F L 16 123/68 H 99 02/12/19 22:01 97.6 F L 81 16 111/73 97 Inital Vital Signs reviewed: Yes General: Well nourished, Well developed Head: Normocephalic Eyes: EOMI ENT: Moist mucous membranes Neck: Supple Cardiovascular: Regular rate, Regular rhythm Respiratory: No distress Abdomen: Soft Skin: Normal color Neurological: Alert, Normal Strength, Normal Sensation, - - Positive Chvostek sign and hyperreflexia Psychological: Normal affect Diagnostic/Tx/Re-eval Laboratory Results 02/12/19 02/12/19 23:45 23:45 WBC 10.2 RBC 4.35 Hgb 12.9 Hct 38.8 MCV 89.2 MCH 29.7 MCHC 33.2 RDW Std Deviation 40.5 RDW Coeff of Jenn 12.3 Plt Count 306 MPV 10.4 Immature Gran % (Auto) 0.300 Neut % (Auto) 50.6 Lymph % (Auto) 37.7 [place] % (Auto) 7.5 Eos % (Auto) 3.0 Baso % (Auto) 0.9 Absolute Neuts (auto) 5.2 Absolute Lymphs (auto) 3.86 Nucleated RBC % 0 Sodium 140 Potassium 3.6 Chloride 105 Carbon Dioxide 27.0 Anion Gap 8 BUN 14 Creatinine 0.83 Estim Creat Clear Calc 102.30 Est GFR (MDRD) Af Amer 101 Est GFR (MDRD) Non-Af 83 BUN/Creatinine Ratio 16.9 Glucose 100 Calcium 7.9 L - Medical Decision Making Labs returned notable for calcium of 7.9. Ionized calcium is pending and is a send out. Her EKG shows no hypocalcemic changes. However given that she is symptomatic we will treat with IV calcium here. She can be discharged to follow-up as an outpatient with her primary care physician and endocrinology. ED Disposition - Plan for ED Patient: Disposition: Home or Assisted Living Diagnosis: Hypocalcemia Instructions: HYPOCALCEMIA (Adult) Referrals: Levi Kent MD [Primary Care Provider] -
[2019-02-12 23:52] LABS: Absolute Lymphocyte Count 3.86 X10^3/uL (0.83-4.51); Absolute Neutrophil Count 5.2 X10^3/uL (2.0-7.7); Basophil# 0.09 X10^3/uL; Basophil% 0.9 % (0-1); Eosinophil# 0.31 X10^3/uL; Hematocrit 38.8 % (37-47); Hemoglobin 12.9 g/dL (12.0-15.0); Lymphocyte # 3.86 X10^3/ul (4.0); Lymphocyte % 37.7 % (19-41); Mean Corp Hgb Conc 33.2 g/dL (32-36); Mean Corpuscular Hgb 29.7 pg (27.0-32.0); Mean Corpuscular Volume 89.2 fL (81-99); Mean Platelet Vol. 10.4 fl (6.2-12.0); Monocyte# 0.77 X10^3/uL; Monocyte% 7.5 % (0-10); NRBC Flagged by Analyzer 0 % (0-5); Neutrophil # 5.17 X10^3/uL (2.7-7.7); Neutrophil % 50.6 % (47-70); Platelet Count 306 K/mm3 (150-450); RBC Distribution Width CV 12.3 % (11.6-14.6); RBC Distribution Width SD 40.5 fl (35.1-43.9); Red Blood Count 4.35 M/mm3 (4.2-5.4); White Blood Count 10.2 K/mm3 (4.4-11.0)
[2019-02-13 00:09] LABS: Anion Gap 8 (5-15); BUN 14 mg/dL (7-18); BUN/Creat Ratio 16.9 RATIO (10-20); Calcium,Total 7.9 mg/dL (8.5-10.1); Chloride 105 mmol/L (98-107); Creatinine, Serum 0.83 mg/dL (0.55-1.02); EST Glomerular Filtration Rate 83 mL/min (>60); Est Glom Filt Rate - Afr Amer 101 mL/min (>60); Glucose 100 mg/dL (74-106); Potassium 3.6 mmol/L (3.5-5.1); Sodium Level 140 mmol/L (136-145)
[2019-02-13 00:11] VITALS: RESP 16; O2SAT 70
[2019-02-13 01:44] VITALS: BP 108/66; PULSE 59; RESP 16; O2SAT 97
== END 2019-02-13 02:00 | disposition home or self-care (01) ==
PROVIDERS: Emergency Provider Emergency Medicine; Family Provider Internal Medicine; PCP Internal Medicine
DX: E83.51 Hypocalcemia (principal); F17.200 Nicotine dependence, unspecified, uncomplicated; E03.9 Hypothyroidism, unspecified; Z79.899 Other long term (current) drug therapy
CPT/HCPCS: 80048; 82330; 85025; 93005; 96365; 99284; J7050; A4216; J0610

== ENCOUNTER → 2019-02-28 08:49 | Outpatient (CLI) | payer MEDICAID, SELFPAY ==
[2019-02-13 14:57] VITALS: BMI 29.4
[2019-02-28 13:06] LABS: Anion Gap 8 (5-15); BUN 12 mg/dL (7-18); BUN/Creat Ratio 14.2 RATIO (10-20); Calcium,Total 7.6 mg/dL (8.5-10.1); Chloride 106 mmol/L (98-107); Creatinine, Serum 0.85 mg/dL (0.55-1.02); EST Glomerular Filtration Rate 81 mL/min (>60); Est Glom Filt Rate - Afr Amer 98 mL/min (>60); Glucose 101 mg/dL (74-106); Phosphorus 3.7 mg/dL (2.5-4.9); Potassium 3.9 mmol/L (3.5-5.1); Sodium Level 139 mmol/L (136-145); Thyroid Stim Hormone (TSH) 2.85 uIU/mL (0.358-3.74)
== END ==
PROVIDERS: Family Provider Internal Medicine; PCP Internal Medicine; Visit Provider Internal Medicine
DX: E83.51 Hypocalcemia (principal); E20.9 Hypoparathyroidism, unspecified; E03.9 Hypothyroidism, unspecified
CPT/HCPCS: 36415; 80048; 84100; 84443

== ENCOUNTER → 2019-03-12 12:22 | Outpatient (CLI) | payer MEDICAID, SELFPAY ==
[2019-02-13 14:57] VITALS: BMI 29.4
[2019-03-12 12:36] VITALS: BP 120/65; PULSE 87; RESP 16; TEMP 36.8; O2SAT 100; BMI 29.4
== END ==
PROVIDERS: Family Provider Internal Medicine; PCP Internal Medicine; Referring Provider Internal Medicine; Visit Provider Internal Medicine
DX: E83.51 Hypocalcemia (principal)
CPT/HCPCS: 96365; J7050; A4216; J0610

== ENCOUNTER → 2019-03-13 09:58 | Outpatient (CLI) | payer MEDICAID, SELFPAY ==
[2019-03-13 09:12] VITALS: BMI 30.4
[2019-03-13 12:29] LABS: Anion Gap 6 (5-15); BUN 14 mg/dL (7-18); BUN/Creat Ratio 15.5 RATIO (10-20); Calcium,Total 7.5 mg/dL (8.5-10.1); Chloride 104 mmol/L (98-107); EST Glomerular Filtration Rate 75 mL/min (>60); Est Glom Filt Rate - Afr Amer 91 mL/min (>60); Glucose 87 mg/dL (74-106); Magnesium 2.1 mg/dL (1.6-2.6); Potassium 3.8 mmol/L (3.5-5.1); Sodium Level 140 mmol/L (136-145)
[2019-03-13 14:50] LABS: PTHIN 10.9 pg/mL (18.4-80.1)
== END ==
PROVIDERS: Family Provider Internal Medicine; PCP Internal Medicine; Visit Provider Internal Medicine
DX: E83.51 Hypocalcemia (principal)
CPT/HCPCS: 36415; 80048; 82306; 82330; 83735; 83970

== ENCOUNTER → 2019-03-28 08:31 | Outpatient (CLI) | payer MEDICAID, SELFPAY ==
[2019-03-28 08:31] VITALS: BMI 29.4
[2019-03-28 12:52] LABS: Calcium,Total 8.1 mg/dL (8.5-10.1); T4 Free Direct 1.17 ng/dL (0.76-1.46); Thyroid Stim Hormone (TSH) 3.23 uIU/mL (0.358-3.74)
== END ==
PROVIDERS: Family Provider Internal Medicine; PCP Internal Medicine; Visit Provider Internal Medicine Endocrinology, Diabetes & Metabolism
DX: E89.2 Postprocedural hypoparathyroidism (principal)
CPT/HCPCS: 36415; 82310; 84439; 84443

== ENCOUNTER → 2019-04-09 13:34 | Outpatient (CLI) | payer MEDICAID, SELFPAY ==
[2019-03-28 08:48] VITALS: BMI 29.4
[2019-04-09 14:38] LABS: Calcium,Total 7.7 mg/dL (8.5-10.1)
[2019-04-09 14:48] LABS: Vitamin D,25 Hydroxy 16.9 ng/mL (29.95-100.01)
[2019-04-13 12:52] LABS: Vitamin D 1,25-Dihydroxy 18.1 pg/mL (19.9-79.3)
== END ==
PROVIDERS: Family Provider Internal Medicine; PCP Internal Medicine; Referring Provider Internal Medicine Endocrinology, Diabetes & Metabolism; Visit Provider Internal Medicine Endocrinology, Diabetes & Metabolism
DX: E89.2 Postprocedural hypoparathyroidism (principal); E55.9 Vitamin D deficiency, unspecified
CPT/HCPCS: 36415; 82306; 82310; 82652

== ENCOUNTER → 2019-04-17 10:06 | Outpatient (CLI) | payer MEDICAID, SELFPAY ==
[2019-03-28 08:48] VITALS: BMI 29.4
[2019-04-17 11:05] LABS: Calcium,Total 7.9 mg/dL (8.5-10.1)
== END ==
PROVIDERS: Family Provider Internal Medicine; PCP Internal Medicine; Referring Provider Internal Medicine Endocrinology, Diabetes & Metabolism; Visit Provider Internal Medicine Endocrinology, Diabetes & Metabolism
DX: E83.51 Hypocalcemia (principal); E89.2 Postprocedural hypoparathyroidism
CPT/HCPCS: 36415; 82310

== ENCOUNTER 2019-04-27 18:30 | Emergency (ER) | payer MEDICAID, SELFPAY ==
[2019-03-28 08:48] VITALS: BMI 29.4
[2019-04-27 18:31] VITALS: BP 131/69; PULSE 87; RESP 16; TEMP 36.3; BMI 30.4
[2019-04-27 18:33] VITALS: BP 131/69; PULSE 87; RESP 16; TEMP 36.3
--- NOTE | 2019-04-27 18:59 | ED.VISSUMM ---
- ER Visit Summary Date of Service: 04/27/19 Chief Complaint: Right leg pain History of Present Illness: The patient is a 33 F presenting with right leg pain. Patient states this started 3 days ago. She has pain behind her right knee. It is worsened with bending her knee. She denies any known injury. She had no recent travel or recent surgery. She has no personal history of DVT, she does have family history of DVT. She denies chest pain or shortness of breath. Denies fever. Denies other complaints. Physical Examination: Vitals are stable. Patient is afebrile. Alert no acute distress. HEENT exam is unremarkable. Neck is supple. Lungs are clear and equal bilaterally. Heart is regular rate and rhythm. Abdomen is soft nontender nondistended. Extremities right posterior knee tenderness. Normal distal pulses. Normal cap refill. Active full range of motion. Skin is warm and dry. No focal neurologic deficit. Remainder of exam is unremarkable. Emergency Department Course and Treatment: Venous Doppler right lower extremity shows No evidence of deep venous thrombosis. Thorpe''s cyst. Patient is advised to use anti-inflammatory medication. Advised follow-up with her primary care physician. Advised return to ED if worsening complaints. Disposition: Discharge home Impression: Thorpe's cyst right lower extremity This note was generated with [employer] dictation software. It may contain incorrect words, spelling, and punctuation that were not noted in review of the chart prior to signing ED Disposition - Plan for ED Patient: Referrals: Levi Kent MD [Primary Care Provider] -
--- NOTE | 2019-04-27 19:11 | US_ITS ---
STUDY: VENOUS DOPPLER ULTRASOUND - RIGHT LOWER EXTREMITY REASON FOR EXAM: Female, 33 years old. LUMP POSTERIOR RT KNEE, PAIN ANTERIOR RT KNEE TECHNIQUE: Ultrasound evaluation of the deep vein system to include luna-scale imaging and compression was performed. Luna-scale imaging and Doppler sonographic evaluation, including duplex spectral analysis and qualitative color flow sonography, was performed. COMPARISON: None. FINDINGS: Common Femoral Vein: Normal compression, spontaneity and augmentation. Normal color Doppler. Common Femoral Vein/Greater Saphenous Junction: Normal compression, spontaneity and augmentation. Normal color Doppler. Femoral Proximal: Normal compression, spontaneity and augmentation. Normal color Doppler. Femoral Middle: Normal compression, spontaneity and augmentation. Normal color Doppler. Femoral Distal: Normal compression, spontaneity and augmentation. Normal color Doppler. Popliteal Vein: Normal compression, spontaneity and augmentation. Normal color Doppler. Posterior Tibial Vein: Normal compression, spontaneity and augmentation. Normal color Doppler. Peroneal Vein: Normal compression, spontaneity and augmentation. Normal color Doppler. There is a posterior knee soft tissue collection measuring 3 x 2.4 x 1.9 cm. US/Venous Duplex Imag/Limited/Uni IMPRESSION: No evidence of deep venous thrombosis. Thorpe''s cyst. Electronically Signed: Mario Salcido, at 19:54 EST Tel , Service support ,
[2019-04-27 19:59] VITALS: RESP 18
--- NOTE | 2019-04-27 19:59 | ED.DEP ---
ED Disposition - Plan for ED Patient: Instructions: Thorpe's Cyst Referrals: Levi Kent MD [Primary Care Provider] -
== END 2019-04-27 20:11 | disposition home or self-care (01) ==
LOC: ED 19:14
PROVIDERS: Emergency Provider Emergency Medicine; PCP Internal Medicine
DX: M71.21 Synovial cyst of popliteal space [Baker], right knee (principal); E07.9 Disorder of thyroid, unspecified
CPT/HCPCS: 93971; 99282

== ENCOUNTER → 2019-05-30 08:55 | Outpatient (CLI) | payer MEDICAID, SELFPAY ==
[2019-05-02 08:42] VITALS: BMI 29.8
[2019-05-30 12:48] LABS: Calcium,Total 7.6 mg/dL (8.5-10.1)
== END ==
PROVIDERS: PCP Internal Medicine; Referring Provider Internal Medicine Endocrinology, Diabetes & Metabolism; Visit Provider Internal Medicine Endocrinology, Diabetes & Metabolism
DX: E89.2 Postprocedural hypoparathyroidism (principal)
CPT/HCPCS: 36415; 82310

== ENCOUNTER → 2019-09-18 16:27 | Outpatient (CLI) | payer MEDICAID, SELFPAY ==
[2019-09-18 16:04] VITALS: BMI 30.3
[2019-09-18 17:55] LABS: Calcium,Total 8.1 mg/dL (8.5-10.1); T4 Free Direct 1.09 ng/dL (0.76-1.46); Thyroid Stim Hormone (TSH) 6.47 uIU/mL (0.358-3.74)
== END ==
PROVIDERS: PCP Internal Medicine; Referring Provider Internal Medicine Endocrinology, Diabetes & Metabolism; Visit Provider Internal Medicine Endocrinology, Diabetes & Metabolism
DX: E03.9 Hypothyroidism, unspecified (principal); E20.9 Hypoparathyroidism, unspecified
CPT/HCPCS: 36415; 82310; 84439; 84443

== ENCOUNTER 2019-12-16 17:11 | Emergency (ER) | payer MEDICAID, SELFPAY ==
[2019-09-20 08:11] VITALS: BMI 30.4
[2019-12-16 17:12] VITALS: BP 114/69; PULSE 88; RESP 16; TEMP 36.6; O2SAT 99; BMI 29.2
--- NOTE | 2019-12-16 17:24 | ED.DCSUM_ITS ---
History of Present Illness Chief Complaint: Cellulitis Informant: Patient Onset: Yesterday Current Severity: Moderate Maximum Severity: Moderate Narrative: Patient presents with redness and burning to the tops of her feet, right greater than left. Patient states that she first noticed redness on the right foot yesterday. It is spread since that time and is now present on her left foot as well. She denies fever or chills. She denies any open wounds on her feet. She denies any change in clothing, shoes, laundry detergents etc. Patient was noted to be at the urgent care in August of this year with a similar complaint. She states that at that time the redness was more the bottom of her feet. It was felt that it was likely a combination of fungal and bacterial infection. She states after consulting with a corn cutter she was told just to take the Keflex and this resolved her symptoms. - Past Medical History (1) Anxiety Status: Chronic (2) Hypothyroidism Status: Chronic Past Medical History - Allergies and Home Meds Allergies/Adverse Reactions: Allergies codeine Allergy (Verified 12/16/19 17:13) can't sleep; itching fluoxetine [From Prozac] Allergy (Verified 12/16/19 17:13) causes manic state naproxen Allergy (Verified 12/16/19 17:13) nose bleed Primary Care Physician: Levi Kent MD [Primary Care Provider] - Prior records reviewed: Yes Surgical History: - Lives: With Family Smoking Status: Current every day smoker - Family History Maternal Family History: Family History (Last Reviewed 09/20/19 @ 08:[address] Bolivar Saldana MD) Father Alcoholism Mother Anemia Depression Hypertension Hyperlipemia Diabetes Grandfather Diabetes Myocardial infarction Grandmother Breast cancer Diabetes Family History: Reports: Diabetes, Hypertension Paternal Family History: Family History (Last Reviewed 09/20/19 @ 08:[address] Bolivar Saldana MD) Father Alcoholism Mother Anemia Depression Hypertension Hyperlipemia Diabetes Grandfather Diabetes Myocardial infarction Grandmother Breast cancer Diabetes Family History: Reports: Diabetes, Hypertension Review of Systems General: Denies: Chills, Fever Eyes: Denies: Visual changes - bilaterally ENT: Denies: Bilateral ear pain Cardiovascular: Denies: Chest pain Respiratory: Denies: Dyspnea, Cough Gastrointestinal: Denies: Abdominal pain Musculoskeletal: Reports: Swelling, Extremity Pain Skin: Reports: Rash Hematologic: Denies: Easy bruising, Easy bleeding Allergy: Denies: Uticaria Physical Exam Vital Signs/Narrative: Vital Signs Temp Pulse Resp BP Pulse Ox 12/16/19 17:12 97.9 F 88 16 114/69 99 Inital Vital Signs reviewed: Yes General: Well nourished, Well developed Head: Normocephalic ENT: Moist mucous membranes Neck: Supple Cardiovascular: Regular rate, Regular rhythm Respiratory: No distress, CTA bilaterally Abdomen: Soft, Nontender Extremities: - - Patient has erythema over the tops of each feet, right greater than left. There does appear to be a small erythematous thelma on the right foot, may be secondary to a bite or scratch. There is no crepitus. Skin is warm consistent with cellulitis. No open wounds are noted on the plantar surface of her feet or between her toes. Neurological: Alert, Oriented x3, Normal Strength, Normal Sensation Psychological: Normal affect Diagnostic/Tx/Re-eval - Medical Decision Making Area of erythema is outlined. We will treat her with Bactrim and Keflex to treat cellulitis. Patient had a virtual visit with Dr. galo from podiatry and will be referred to him as needed. She was given return instructions to the ER as well. Patient is comfortable with this plan. ED Disposition - Plan for ED Patient: Disposition: Home or Assisted Living Diagnosis: Cellulitis Instructions: ED Cellulitis Prescriptions: Smz/Tmp Ds [Bactrim Ds] 1 tab PO BID #20 tab Transmission Status: Pending to [facility] Cephalexin [Keflex] 500 mg PO Q6 #40 cap Transmission Status: Pending to [facility] Referrals: Levi Kent MD [Primary Care Provider] - Carlos Bonds DPM [STAFF PHYSICIAN] - 3-5 Days if not improving
[2019-12-16] MEDS: Smz/Tmp Ds Tablet 1 TABLET PO (17:30)
[2019-12-16] MEDS: Cephalexin 250 MG Capsule 500 MG PO (17:30)
== END 2019-12-16 17:35 | disposition home or self-care (01) ==
LOC: ED 17:31
PROVIDERS: Emergency Provider Emergency Medicine; PCP Internal Medicine
DX: L03.90 Cellulitis, unspecified (principal); F17.200 Nicotine dependence, unspecified, uncomplicated
CPT/HCPCS: 99283

== ENCOUNTER → 2020-02-13 17:19 | Outpatient (CLI) | payer MEDICAID, SELFPAY | PROVIDERS: PCP Internal Medicine; Referring Provider Nurse Practitioner Family; Visit Provider Nurse Practitioner Family | DX: Z20.828 Contact with and (suspected) exposure to other viral communicable diseases (principal); R05 Cough | CPT/HCPCS: 87635; C9803; U0003 ==

== ENCOUNTER → 2020-03-17 09:34 | Outpatient (CLI) | payer MEDICAID, SELFPAY ==
[2020-03-17 11:33] LABS: Calcium,Total 7.6 mg/dL (8.5-10.1); Thyroid Stim Hormone (TSH) 5.66 uIU/mL (0.358-3.74); Uric Acid 4.4 mg/dL (2.6-6.0)
== END ==
PROVIDERS: PCP Internal Medicine; Referring Provider Internal Medicine Endocrinology, Diabetes & Metabolism; Visit Provider Internal Medicine Endocrinology, Diabetes & Metabolism
DX: E89.0 Postprocedural hypothyroidism (principal); E89.2 Postprocedural hypoparathyroidism; M19.90 Unspecified osteoarthritis, unspecified site
CPT/HCPCS: 36415; 82310; 84439; 84443; 84550

== ENCOUNTER → 2020-04-01 11:04 | Outpatient (CLI) | payer MEDICAID, SELFPAY ==
[2020-03-18 15:46] VITALS: BMI 29.2
[2020-04-01 12:22] LABS: Calcium,Total 7.4 mg/dL (8.5-10.1); Magnesium 1.9 mg/dL (1.6-2.6)
[2020-04-01 13:37] LABS: Vitamin D,25 Hydroxy 34.7 ng/mL
[2020-04-03 14:57] LABS: Vitamin D 1,25-Dihydroxy 36.4 pg/mL (19.9-79.3)
== END ==
PROVIDERS: PCP Internal Medicine; Referring Provider Internal Medicine Endocrinology, Diabetes & Metabolism; Visit Provider Internal Medicine Endocrinology, Diabetes & Metabolism
DX: E89.2 Postprocedural hypoparathyroidism (principal)
CPT/HCPCS: 36415; 82306; 82310; 82652; 83735

== ENCOUNTER 2020-04-02 19:31 | Emergency (ER) | payer MEDICAID, SELFPAY ==
[2020-04-02 17:13] VITALS: BMI 29.0
[2020-04-02 19:32] VITALS: BP 137/82; PULSE 74; RESP 16; TEMP 36.1; O2SAT 100; BMI 28.9
--- NOTE | 2020-04-02 19:46 | US_ITS ---
STUDY: ABDOMINAL ULTRASOUND - RIGHT UPPER QUADRANT REASON FOR VISIT: Female, 34 years old. Right upper quadrant pain TECHNIQUE: Ultrasound evaluation of the right upper quadrant was performed with real-time and static rangel-scale imaging. TECHNICAL QUALITY: Adequate. COMPARISON: None. FINDINGS: Liver: The liver measures 17.0 cm. There is normal echogenicity of the liver. The bile ducts are within normal limits. There is hepatic color flow. The direction of portal flow is hepatopetal. There is no demonstrated mass lesion. Gallbladder: Normal distended gallbladder. The gallbladder wall measures 2 mm. There is a positive sonographic Gallardo''s sign. There is no pericholecystic fluid. There are no gallstones. Common Bile Duct (C.B.D.): The common bile duct measures 5 mm. Pancreas: The pancreatic tail is not well-visualized. The pancreatic head and body are normal in echotexture. There is no demonstrated pancreatic mass or cyst. Right Kidney: Normal size of the right kidney. The right kidney measures 11.0 cm. Normal renal cortex. There is no demonstrated renal mass or cyst. There is no right hydronephrosis. US/Abdomen Limited IMPRESSION: Normal right upper quadrant ultrasound examination. Please note that the fish roe technician reports a positive sonographic Gallardo''s sign. If there is persistent concern for acute cholecystitis, consider further evaluation with a nuclear medicine hepatobiliary study. Electronically Signed: Jefe Matthew, at 20:48 EST Tel , Service support ,
[2020-04-02] MEDS: Morphine 4 MG/ML Syringe IV (19:58)
[2020-04-02] MEDS: Ondansetron 4 MG/2 ML Vial IV (19:58)
--- NOTE | 2020-04-02 20:10 | ED.DCSUM_ITS ---
History of Present Illness Chief Complaint: Abd Pain Informant: Patient Narrative: Patient is a 34-year-old female who presents to the emergency department for right upper quadrant abdominal pain. She currently rates her pain as a 7 out of 10. Does wrap around to her back on the right side. She did have issues with her gallbladder 1 year ago. She had a HIDA scan performed at that time and was supposed to have her gallbladder removed on a routine basis. She ended up not following up because she had issues with her thyroid. Over the past week and a half she started to have developed severe right upper quadrant pain this is especially severe when eating. She was supposed to have a scheduled outpatient ultrasound but states that the pain became more intense today. She does get nauseous with these episodes. No change in bowel habits. No urinary symptoms. She does have a history of hysterectomy. She denies any fevers or chills. No chest pain or shortness of breath. Past Medical History - Allergies and Home Meds Allergies/Adverse Reactions: Allergies codeine Allergy (Verified 04/02/20 19:34) can't sleep; itching fluoxetine [From Prozac] Allergy (Verified 04/02/20 19:34) causes manic state naproxen Allergy (Verified 04/02/20 19:34) nose bleed Primary Care Physician: Levi Kent MD [Primary Care Provider] - Susan Collier MD [STAFF PHYSICIAN] - 3-5 Days Prior records reviewed: Yes Surgical History: - Smoking Status: Current every day smoker - Family History Maternal Family History: Family History (Last Reviewed 04/02/20 @ 17:11 by Adelaide Sanon) Father Alcoholism Mother Anemia Depression Hypertension Hyperlipemia Diabetes Grandfather Diabetes Myocardial infarction Grandmother Breast cancer Diabetes Family History: Reports: Diabetes, Hypertension Paternal Family History: Family History (Last Reviewed 04/02/20 @ 17:11 by Adelaide Sanon) Father Alcoholism Mother Anemia Depression Hypertension Hyperlipemia Diabetes Grandfather Diabetes Myocardial infarction Grandmother Breast cancer Diabetes Family History: Reports: Diabetes, Hypertension Review of Systems All systems negative except as indicated General: Denies: Chills, Fever, Sweats Eyes: Denies: Visual changes - bilaterally, Diplopia ENT: Denies: Rhinorrhea, Sore throat Cardiovascular: Denies: Chest pain, Palpitations Respiratory: Denies: Dyspnea, Cough, Dyspnea on exertion Gastrointestinal: Reports: Abdominal pain, Nausea. Denies: Vomiting, Diarrhea, Melena, Hematochezia Genitourinary: Denies: Dysuria, Hematuria, Frequency Musculoskeletal: Denies: Back pain, Extremity Pain Skin: Denies: Rash, Wounds Neurological: Denies: Headache, Weakness, Numbness Physical Exam Vital Signs/Narrative: Vital Signs Temp Pulse Resp BP Pulse Ox 04/02/20 19:32 97.0 F L 74 16 137/82 H 100 General: Well nourished, Well developed, No Acute Distress Head: Normocephalic, Atraumatic Eyes: Perrl, EOMI ENT: Moist mucous membranes, No rhinorrhea Neck: Supple, Nontender Cardiovascular: Regular rate, Regular rhythm, No murmurs Respiratory: No distress, CTA bilaterally, Chest nontender Abdomen: Soft, Nondistended, Normal bowel sounds, Tender - Right upper quadrant. No pain over McBurney's point., Gallardo's sign. Negative for: Guarding, Rebound tenderness Back: Nontender, Normal Inspection Extremities: Nontender, No edema Skin: Normal color, No rash Neurological: Alert, Oriented x3, Cranial nerves II-XII grossly intact, Normal Strength, Normal Sensation Psychological: Normal affect, Normal Mood Diagnostic/Tx/Re-eval - Medical Decision Making Patient presents to the emergency department for right upper quadrant abdominal pain. This is worse with eating. She does have a history of gallbladder issues. She has been following with Dr. Collier. Ultrasound obtained here which did not reveal any acute issues. Her lab work does not show any elevation of her liver enzymes or bilirubin. No elevated white blood cell count. Her pain is well controlled here. She is requesting a prescription for Zofran. She will need to follow-up with her general surgeon. Warning signs and symptoms which to return to the ED are reviewed. She understands and is agreeable this plan. Discharged home in stable condition. All questions answered. ED Disposition - Plan for ED Patient: Disposition: Home or Assisted Living Diagnosis: Biliary colic Instructions: ED Abdominal Pain Gallstone Poss Prescriptions: Ondansetron [Zofran Odt] 4 mg PO Q8H PRN PRN #10 tab PRN Reason: Nausea/Vomiting Transmission Status: Received by [facility] Referrals: Levi Kent MD [Primary Care Provider] - Susan Collier MD [STAFF PHYSICIAN] - 3-5 Days
[2020-04-02 20:17] LABS: Absolute Lymphocyte Count 4.19 X10^3/uL (0.83-4.51); Basophil# 0.08 X10^3/uL; Basophil% 0.8 % (0-1); Eosinophil# 0.27 X10^3/uL; Eosinophils% 2.6 % (0-5); Hematocrit 42.1 % (37-47); Hemoglobin 14.2 g/dL (12.0-15.0); Lymphocyte # 4.19 X10^3/ul (4.0); Lymphocyte % 40.4 % (19-41); Mean Corp Hgb Conc 33.7 g/dL (32-36); Mean Corpuscular Volume 88.8 fL (81-99); Mean Platelet Vol. 11.4 fl (6.2-12.0); Monocyte# 0.76 X10^3/uL; Monocyte% 7.3 % (0-10); NRBC Flagged by Analyzer 0 % (0-5); Neutrophil # 5.04 X10^3/uL (2.7-7.7); Neutrophil % 48.7 % (47-70); Platelet Count 361 K/mm3 (150-450); RBC Distribution Width CV 12.6 % (11.6-14.6); RBC Distribution Width SD 41.1 fl (35.1-43.9); Red Blood Count 4.74 M/mm3 (4.2-5.4); White Blood Count 10.4 K/mm3 (4.4-11.0)
[2020-04-02 20:18] LABS: Color, Urine Yellow (Yellow); Glucose, Dipstick Normal (Normal); Ketone-Dipstick Negative (Negative); Leukocyte Esterase-Dipstick Negative /ul (Negative); Nitrite-Dipstick Negative (Negative); Occult Blood-Urine 25 /ul (Negative); Protein-Dipstick Negative (Negative); Urine Bilirubin Dipstick Negative (Negative); Urine Clarity Clear (Clear); Urine Urobilinogen Normal (Normal)
[2020-04-02 20:35] LABS: AST(SGOT) 15 U/L (15-37); Alanine Aminotransfer ALT/SGPT 21 U/L (13-56); Alkaline Phosphatase 57 U/L (45-117); Anion Gap 6 (5-15); BUN 12 mg/dL (7-18); BUN/Creat Ratio 14.1 RATIO (10-20); Calcium,Total 8.5 mg/dL (8.5-10.1); Chloride 103 mmol/L (98-107); Creatinine, Serum 0.85 mg/dL (0.55-1.02); EST Glomerular Filtration Rate 80 mL/min (>60); Est Glom Filt Rate - Afr Amer 97 mL/min (>60); Estimated Creatinine Clearance 102.27 ml/min; Globulin 3.9 g/dL (2.2-4.2); Glucose 76 mg/dL (74-106); Lipase 82 U/L (73-393); Potassium 3.7 mmol/L (3.5-5.1); Protein, Total 7.9 g/dL (6.4-8.2); Sodium Level 139 mmol/L (136-145)
[2020-04-02 21:09] VITALS: BP 116/70; PULSE 64; RESP 18
== END 2020-04-02 21:21 | disposition home or self-care (01) ==
PROVIDERS: Emergency Provider Emergency Medicine; PCP Internal Medicine
DX: K80.50 Calculus of bile duct without cholangitis or cholecystitis without obstruction (principal); F17.200 Nicotine dependence, unspecified, uncomplicated
CPT/HCPCS: 76705; 80053; 81002; 83690; 85025; 96374; 96375; 99283; A4216; J2405

== ENCOUNTER → 2020-04-22 10:39 | Outpatient (CLI) | payer MEDICAID, SELFPAY ==
[2020-04-22 12:55] LABS: Calcium,Total 8.7 mg/dL (8.5-10.1)
== END ==
PROVIDERS: PCP Internal Medicine; Referring Provider Internal Medicine Endocrinology, Diabetes & Metabolism; Visit Provider Internal Medicine Endocrinology, Diabetes & Metabolism
DX: E89.2 Postprocedural hypoparathyroidism (principal)
CPT/HCPCS: 36415; 82310

== ENCOUNTER → 2020-05-28 10:09 | Outpatient (CLI) | payer MEDICAID, SELFPAY ==
[2020-05-28 13:00] LABS: Absolute Lymphocyte Count 3.27 X10^3/uL (0.83-4.51); Absolute Neutrophil Count 4.7 X10^3/uL (2.0-7.7); Basophil# 0.06 X10^3/uL; Basophil% 0.7 % (0-1); Eosinophil# 0.22 X10^3/uL; Eosinophils% 2.5 % (0-5); Hematocrit 42.8 % (37-47); Hemoglobin 14.1 g/dL (12.0-15.0); Lymphocyte # 3.27 X10^3/ul (4.0); Lymphocyte % 37.2 % (19-41); Mean Corp Hgb Conc 32.9 g/dL (32-36); Mean Corpuscular Hgb 29.6 pg (27.0-32.0); Mean Corpuscular Volume 89.7 fL (81-99); Mean Platelet Vol. 11.8 fl (6.2-12.0); Monocyte# 0.58 X10^3/uL; Monocyte% 6.6 % (0-10); NRBC Flagged by Analyzer 0 % (0-5); Neutrophil # 4.65 X10^3/uL (2.7-7.7); Neutrophil % 52.8 % (47-70); Platelet Count 371 K/mm3 (150-450); RBC Distribution Width CV 12.6 % (11.6-14.6); RBC Distribution Width SD 41.4 fl (35.1-43.9); Red Blood Count 4.77 M/mm3 (4.2-5.4); White Blood Count 8.8 K/mm3 (4.4-11.0)
[2020-05-28 13:13] LABS: ALB/GLOB Ratio 1.2 RATIO (0.9-2.4); AST(SGOT) 11 U/L (15-37); Alanine Aminotransfer ALT/SGPT 22 U/L (13-56); Alkaline Phosphatase 47 U/L (45-117); Anion Gap 6 (5-15); BUN 13 mg/dL (7-18); BUN/Creat Ratio 14.1 RATIO (10-20); Calcium,Total 8.2 mg/dL (8.5-10.1); Chloride 105 mmol/L (98-107); Creatinine, Serum 0.92 mg/dL (0.55-1.02); EST Glomerular Filtration Rate 73 mL/min (>60); Est Glom Filt Rate - Afr Amer 88 mL/min (>60); Globulin 3.4 g/dL (2.2-4.2); Glucose 78 mg/dL (74-106); Potassium 3.6 mmol/L (3.5-5.1); Protein, Total 7.4 g/dL (6.4-8.2); Sodium Level 141 mmol/L (136-145)
[2020-05-28 13:28] LABS: T4 Free Direct 1.29 ng/dL (0.76-1.46); Thyroid Stim Hormone (TSH) 0.95 uIU/mL (0.358-3.74)
== END ==
PROVIDERS: PCP Internal Medicine; Referring Provider Internal Medicine Endocrinology, Diabetes & Metabolism; Visit Provider Internal Medicine Endocrinology, Diabetes & Metabolism
DX: R10.11 Right upper quadrant pain (principal); E89.2 Postprocedural hypoparathyroidism; E89.0 Postprocedural hypothyroidism
CPT/HCPCS: 36415; 80053; 84439; 84443; 85025

== ENCOUNTER → 2020-07-07 10:12 | Outpatient (CLI) | payer MEDICAID, SELFPAY ==
[2020-06-27 07:55] VITALS: BMI 28.8
--- NOTE | 2020-07-07 10:15 | RAD_ITS ---
STUDY: X-RAY - LUMBOSACRAL SPINE REASON FOR EXAM: Female, 34 years old. Radiculopathy, lumbosacral region TECHNIQUE: 6 view(s) of the lumbosacral spine were obtained including oblique views and flexion and extension views.. COMPARISON: None FINDINGS: Normal lumbar lordosis. There is no substantial scoliosis. There is normal alignment of the vertebrae. Normal vertebral bodies and endplates. Mild degree of disc space narrowing at the L4-L5 level. Marked degree of disc space narrowing at the L5-S1. No abnormal movement between the vertebrae is seen on the flexion-extension views. Normal bilateral sacral ala, sacroiliac joints, and visualized sacrum. Normal visualized soft tissue structures. RAD/L/S Spine Comp/w Bending Views IMPRESSION: Degenerative changes of the spine, as detailed above. Electronically Signed: Dimitris Stewart MD at 12:03 EDT , Service support ,
== END ==
PROVIDERS: PCP Internal Medicine; Referring Provider Anesthesiology Pain Medicine; Visit Provider Anesthesiology Pain Medicine
DX: M54.17 Radiculopathy, lumbosacral region (principal)
CPT/HCPCS: 72114

== ENCOUNTER → 2020-07-08 08:40 | Outpatient (CLI) | payer MEDICAID, SELFPAY ==
[2020-06-27 07:55] VITALS: BMI 28.8
[2020-07-08 12:15] LABS: Anion Gap 7 (5-15); BUN 12 mg/dL (7-18); BUN/Creat Ratio 13.5 RATIO (10-20); Calcium,Total 7.8 mg/dL (8.5-10.1); Chloride 105 mmol/L (98-107); Creatinine, Serum 0.89 mg/dL (0.55-1.02); EST Glomerular Filtration Rate 76 mL/min (>60); Est Glom Filt Rate - Afr Amer 92 mL/min (>60); Glucose 109 mg/dL (74-106); Potassium 3.3 mmol/L (3.5-5.1); Sodium Level 141 mmol/L (136-145)
[2020-07-08 12:21] LABS: Vitamin D,25 Hydroxy 32.6 ng/mL
[2020-07-09 16:09] LABS: Vitamin D 1,25-Dihydroxy 66.1 pg/mL (19.9-79.3)
== END ==
PROVIDERS: PCP Internal Medicine; Referring Provider Internal Medicine Endocrinology, Diabetes & Metabolism; Visit Provider Internal Medicine Endocrinology, Diabetes & Metabolism
DX: E89.2 Postprocedural hypoparathyroidism (principal); E55.9 Vitamin D deficiency, unspecified
CPT/HCPCS: 36415; 80048; 82306; 82652

== ENCOUNTER → 2020-08-06 08:34 | Outpatient (CLI) | payer MEDICAID, SELFPAY ==
[2020-06-27 07:55] VITALS: BMI 28.8
[2020-08-06 12:33] LABS: ALB/GLOB Ratio 1.1 RATIO (0.9-2.4); AST(SGOT) 9 U/L (15-37); Alanine Aminotransfer ALT/SGPT 20 U/L (13-56); Albumin, Serum 3.8 g/dL (3.2-5.0); Alkaline Phosphatase 43 U/L (45-117); Anion Gap 7 (5-15); BUN 17 mg/dL (7-18); BUN/Creat Ratio 18.4 RATIO (10-20); Calcium,Total 8.3 mg/dL (8.5-10.1); Chloride 106 mmol/L (98-107); Creatinine, Serum 0.92 mg/dL (0.55-1.02); EST Glomerular Filtration Rate 73 mL/min (>60); Est Glom Filt Rate - Afr Amer 88 mL/min (>60); Globulin 3.4 g/dL (2.2-4.2); Glucose 82 mg/dL (74-106); Potassium 3.8 mmol/L (3.5-5.1); Protein, Total 7.2 g/dL (6.4-8.2); Sodium Level 139 mmol/L (136-145)
== END ==
PROVIDERS: PCP Internal Medicine; Referring Provider Internal Medicine Endocrinology, Diabetes & Metabolism; Visit Provider Internal Medicine Endocrinology, Diabetes & Metabolism
DX: E89.2 Postprocedural hypoparathyroidism (principal); R00.2 Palpitations; E03.9 Hypothyroidism, unspecified
CPT/HCPCS: 36415; 80048; 80053; 84443; 84484; 85025; 93005

== ENCOUNTER 2020-08-06 16:50 | Emergency (ER) | payer MEDICAID, SELFPAY ==
[2020-06-27 07:55] VITALS: BMI 28.8
[2020-08-06 16:51] VITALS: BP 113/80; PULSE 82; RESP 15; TEMP 36.9; O2SAT 99; BMI 27.1
--- NOTE | 2020-08-06 17:13 | EKG12_ITS ---
Test Reason : CP/PALPS Blood Pressure : / mmHG Vent. Rate : 074 BPM Atrial Rate : 074 BPM P-R Int : 150 ms QRS Dur : 088 ms QT Int : 396 ms P-R-T Axes : 065 052 051 degrees QTc Int : 439 ms Normal sinus rhythm with sinus arrhythmia Normal ECG Confirmed by BIBI BONNER, SUSAN ([id number]), scientific editor CELIA BYRD ([id number]) on 08/08/2020 10:04:46 AM Referred By: PAMELA Confirmed By:SUSAN MTZ MD
--- NOTE | 2020-08-06 17:14 | EDS_ITS ---
HPI History of Present Illness Chief Complaint: Palpitations Informant: patient Narrative Patient presents with chest pain palpitations. She has had these intermittently since Tuesday which is 5 days. She describes sharp pain in the right parasternal area that does not radiate. She has intermittent palpitations and shakiness. She has checked her blood sugar and it has not been low during these issues. She tells me she has a history of low calcium status post removal of her thyroid. She is on thyroid and calcium supplementation at home. She denies any shortness of breath. She denies any history of arrhythmia or coronary disease. She had a BM P earlier today which shows a normal calcium level. She denies any fevers or cough. [facility] Medical History (Updated 08/06/20 @ 18:[address] Tyler Park MD) Anxiety Arthritis Back pain Carpal tunnel syndrome Degenerative disc disease Diabetes H/O breast lump Hypocalcemia Hypoglycemia Hypokalemia Hypothyroidism Polycystic ovaries Seasonal allergies TMJ (temporomandibular joint syndrome) Vitamin deficiency Home Medications levothyroxine 125 mcg tablet 125 mcg PO DAILY #90 tab 03/18/20 [Rx Last Taken Unknown] calcium carbonate 300 mg PO DAILY 04/02/20 [History Last Taken Unknown] tizanidine 4 mg tablet 4 mg PO TID PRN #90 tab 05/12/20 [Rx Last Taken Unknown] ibuprofen 200 mg tablet 600 mg PO Q6H PRN tab 06/11/20 [History Last Taken Unknown] bisacodyl [Dulcolax (bisacodyl)] 10 mg PO QHS 08/06/20 [History Last Taken Unknown] calcitriol 1 mcg PO DINNER 08/06/20 [History Last Taken Unknown] Allergy/AdvReac Type Severity Reaction Status Date / Time codeine Allergy can't Verified 06/27/20 07:48 sleep; itching fluoxetine [From Prozac] Allergy causes Verified 06/27/20 07:48 manic state naproxen Allergy nose bleed Verified 06/27/20 07:48 Family History Father Alcoholism Mother Anemia Depression Hypertension Hyperlipemia Diabetes Grandfather Diabetes Myocardial infarction Grandmother Breast cancer Diabetes Surgical History History of partial hysterectomy History of thyroidectomy History of total hysterectomy Social History Smoking Status: Current every day smoker Tobacco: How many years used: 20 alcohol intake: never substance use type: does not use what type of physical activity do you participate in: none ROS ROS ED Constitutional Constitutional ED: Denies chills or fever(s) Eyes Eyes: Denies blurry vision or change in vision ENT ENT ED: Denies ear pain, rhinorrhea or sore throat Cardiovascular Cardiovascular: Reports chest pain and palpitations Respiratory/Chest Respiratory/Chest: Denies cough, dyspnea or sputum Gastrointestinal Gastrointestinal: Denies abdominal pain, diarrhea, nausea or vomiting Genitourinary Genitourinary ED: Denies dysuria, hematuria or urinary frequency Musculoskeletal Musculoskeletal: Denies back pain or neck pain Integumentary Denies change in pigmentation or rash Neurologic Neurologic: Denies headache(s), numbness or weakness Psychiatric Psychiatric: Denies anxiety or depression Endocrine Endocrinology: Denies polydipsia or polyuria EXAM Physical Exam Const Vital Signs: 08/06/20 16:51 08/06/20 17:13 08/06/20 17:23 Temperature 98.4 F Temperature Source Temporal Pulse Rate 82 Respiratory Rate 15 Respiratory Effort Normal Non-Labored Blood Pressure 113/80 Blood Pressure Mean 91 Pulse Ox 99 Oxygen Delivery Method Room Air Room Air Positive well nourished and well developed General Appearance ED: well developed and NAD HEENT Reports moist mucous membranes normocephalic and atraumatic; Negative for tenderness Eyes PERRL and EOMs intact bilaterally Neck supple and no JVD Chest Wall Chest: Negative for tenderness Resp normal respiratory effort and clear to auscultation bilaterally Effort and Inspection: Negative for respiratory distress Cardio regular rate and regular rhythm; Negative for no murmurs GI soft to palpation, non-tender and non-distended Palpation: soft Back/Spine no CVA tenderness and no thoracic nor lumbar tenderness Cervical Spine: Negative for cervical spine tenderness Extremity normal to inspection General Extremety ED: Negative for tenderness Neuro oriented x3, CN's II-XII intact bilaterally and no sensory deficits noted Sensorium / Orientation: awake and alert Motor Exam: strength 5/5 throughout Psych mental status grossly normal Skin no rashes or lesions noted Heart Score History: Slightly/Non-Suspicious ECG: Nonspecific Repolarization Age: </= 45 years Risk Factors: No Risk Factors Troponin: </= Normal Limit Score: 1 MDM MDM MDM Narrative Medical decision making narrative: The patient's EKG was sinus rhythm with no ischemic changes. Laboratory studies are unremarkable except for calcium of 7.9. The patient is already on supplemental calcium at home. Her rhythm strip is been in a sinus rhythm the entire time. This could be due to anxiety as she does have a history of this. Patient will be discharged with cardiology follow- up we may want to put on an outpatient monitor. She will continue her home medications. Lab Data Labs: Laboratory Results - last 24 hr 08/06/20 08/06/20 17:20 17:20 WBC 9.5 RBC 4.60 Hgb 14.0 Hct 41.7 MCV 90.7 MCH 30.4 MCHC 33.6 RDW Std Deviation 43.2 RDW Coeff of Jenn 13.1 Plt Count 371 MPV 11.8 Immature Gran % (Auto) 0.300 Neut % (Auto) 52.9 Lymph % (Auto) 36.2 Vernon % (Auto) 8.0 Eos % (Auto) 1.9 Baso % (Auto) 0.7 Absolute Neuts (auto) 5.0 Absolute Lymphs (auto) 3.44 Nucleated RBC % 0 Sodium 137 Potassium 4.8 Chloride 106 Carbon Dioxide 28.0 Anion Gap 3 L BUN 19 H Creatinine 0.91 Estim Creat Clear Calc 95.52 Est GFR (MDRD) Af Amer 90 Est GFR (MDRD) Non-Af 74 BUN/Creatinine Ratio 20.9 H Glucose 89 Calcium 7.9 L Troponin I < 0.015 TSH 1.60 Discharge Plan Triage Chief Complaint: Palpitations ED Provider: Tyler Park Dx/Rx/DC Orders Clinical Impression: Heart palpitations Instructions: ED Palpitations Prescriptions: No Action levothyroxine 125 mcg tablet 125 mcg PO DAILY Qty: 90 RF: 1 ibuprofen 200 mg tablet 600 mg PO Q6H PRN (Reason: Pain) RF: 0 calcium carbonate 300 MG tablet,chewable 300 mg PO DAILY RF: 0 bisacodyl [Dulcolax (bisacodyl)] 5 mg Tablet,Delayed Release (Dr/Ec) 10 mg PO QHS RF: 0 calcitriol 0.5 mcg capsule 1 mcg PO DINNER RF: 0 tizanidine 4 mg tablet 4 mg PO TID PRN (Reason: muscle spasticity) Qty: 90 RF: 2 Primary Care Provider: Levi Kent Referrals: Levi Kent MD [Primary Care Provider] - Jose Elder MD [STAFF PHYSICIAN] - 3-5 Days if not improving Disposition Disposition: Home, self care
[2020-08-06 17:33] LABS: Absolute Lymphocyte Count 3.44 X10^3/uL (0.83-4.51); Basophil# 0.07 X10^3/uL; Basophil% 0.7 % (0-1); Eosinophil# 0.18 X10^3/uL; Eosinophils% 1.9 % (0-5); Hematocrit 41.7 % (37-47); Lymphocyte # 3.44 X10^3/ul (0.83-4.51); Lymphocyte % 36.2 % (19-41); Mean Corp Hgb Conc 33.6 g/dL (32-36); Mean Corpuscular Hgb 30.4 pg (27.0-32.0); Mean Corpuscular Volume 90.7 fL (81-99); Mean Platelet Vol. 11.8 fl (6.2-12.0); Monocyte# 0.76 X10^3/uL; NRBC Flagged by Analyzer 0 % (0-5); Neutrophil # 5.02 X10^3/uL (2.7-7.7); Neutrophil % 52.9 % (47-70); Platelet Count 371 K/mm3 (150-450); RBC Distribution Width CV 13.1 % (11.6-14.6); RBC Distribution Width SD 43.2 fl (35.1-43.9); White Blood Count 9.5 K/mm3 (4.4-11.0)
[2020-08-06 17:52] LABS: Anion Gap 3 (5-15); BUN 19 mg/dL (7-18); BUN/Creat Ratio 20.9 RATIO (10-20); Calcium,Total 7.9 mg/dL (8.5-10.1); Chloride 106 mmol/L (98-107); Creatinine, Serum 0.91 mg/dL (0.55-1.02); EST Glomerular Filtration Rate 74 mL/min (>60); Est Glom Filt Rate - Afr Amer 90 mL/min (>60); Estimated Creatinine Clearance 95.52 ml/min; Glucose 89 mg/dL (74-106); Potassium 4.8 mmol/L (3.5-5.1); Sodium Level 137 mmol/L (136-145)
[2020-08-06 18:45] VITALS: BP 138/78; PULSE 89; RESP 16; O2SAT 96
== END 2020-08-06 18:46 | disposition home or self-care (01) ==
PROVIDERS: Emergency Provider Emergency Medicine; PCP Internal Medicine
DX: R00.2 Palpitations (principal); E03.9 Hypothyroidism, unspecified
CPT/HCPCS: 80048; 84443; 84484; 85025; 93005; 99283

== ENCOUNTER → 2020-09-02 14:14 | Outpatient (CLI) | payer MEDICAID, SELFPAY ==
[2020-08-19 13:10] VITALS: BMI 28.4
--- NOTE | 2020-09-02 14:16 | RAD_ITS ---
STUDY: X-RAY - PELVIS AND RIGHT HIP REASON FOR EXAM: Female, 34 years old. RIGHT HIP PAIN TECHNIQUE: 3 views of the pelvis and hip. COMPARISON: None. FINDINGS: There is a non-specific bowel gas pattern. Normal visualized soft tissue structures. Normal bilateral iliac wings, sacroiliac joints and visualized sacrum. Normal bilateral superior and inferior pubic rami. Normal pubic symphysis. Normal bilateral ischial tuberosities. Normal visualized femoral head. Normal acetabulum. Normal hip joint. RAD/HIP, UNI W/ Pelvis 2-3 Views IMPRESSION: Normal x-ray examination of the pelvis and hip. Electronically Signed: Dimitris Stewart MD at 14:41 EDT , Service support ,
== END ==
PROVIDERS: PCP Internal Medicine; Referring Provider Nurse Practitioner Family; Visit Provider Nurse Practitioner Family
DX: M25.551 Pain in right hip (principal)
CPT/HCPCS: 73502

== ENCOUNTER → 2020-11-13 14:26 | Outpatient (CLI) | payer MEDICAID, SELFPAY ==
[2020-08-19 13:10] VITALS: BMI 28.4
[2020-11-15 08:39] LABS: Cancer Antigen 125 5.2 U/mL (0.0-38.1)
== END ==
PROVIDERS: PCP Internal Medicine; Visit Provider Nurse Practitioner Family
DX: N83.9 Noninflammatory disorder of ovary, fallopian tube and broad ligament, unspecified (principal)
CPT/HCPCS: 36415; 86304

== ENCOUNTER → 2020-11-26 13:10 | Outpatient (CLI) | payer MEDICAID, SELFPAY ==
[2020-08-19 13:10] VITALS: BMI 28.4
--- NOTE | 2020-11-26 13:27 | MRI_ITS ---
HISTORY: DDD, LEFT RADICULITIS EXAMINATION: MR Spine Lumbar W/O Contrast TECHNIQUE: Multiplanar and multisequence MR images of the lumbar spine. IV Contrast dosage and agent: None. COMPARISON: None FINDINGS: VERTEBRAE: No acute fracture or pathologic marrow replacement. No expansile or destructive lesion. CORD: Normal visualized portions of the spinal cord and cauda equina, with the tip of the conus medullaris at the L1 level. No intradural or intramedullary soft tissue mass or epidural fluid collection. SOFT TISSUES: Unremarkable. L1/L2: No disc bulge, central canal stenosis, or neural foraminal stenosis. L2/L3: Circumferential annular bulge without significant central or neural foraminal stenosis. Small high intensity zone in the posterior annulus. L3/L4: Circumferential annular bulge without significant central or neural foraminal stenosis. Small high intensity zone in the posterior annulus. L4/L5: No disc bulge, central canal stenosis, or neural foraminal stenosis. L5/S1: No disc bulge, central canal stenosis, or neural foraminal stenosis. MRI/Spine Lumbar (Routine) IMPRESSION: Radial annular tears at L2-3 and L3-4 without significant central or foraminal stenoses. at 1529 Reported and signed by: Moncho Teague MD Electronically Signed: Moncho Teague MD at 15:28 EDT Tel , Service support ,
== END ==
PROVIDERS: PCP Internal Medicine; Referring Provider Nurse Practitioner Family; Visit Provider Nurse Practitioner Family
DX: M51.37 Other intervertebral disc degeneration, lumbosacral region (principal); M51.26 Other intervertebral disc displacement, lumbar region; M54.17 Radiculopathy, lumbosacral region
CPT/HCPCS: 72148

== ENCOUNTER 2020-12-01 13:13 | Emergency (ER) | payer MEDICAID, SELFPAY ==
[2020-12-01 13:14] VITALS: BP 128/88; PULSE 104; RESP 18; TEMP 37.1; O2SAT 99; BMI 28.0
== END 2020-12-01 14:15 | disposition left against medical advice (07) ==
LOC: ED 14:39
PROVIDERS: PCP Internal Medicine
DX: Z53.21 Procedure and treatment not carried out due to patient leaving prior to being seen by health care provider (principal)

== ENCOUNTER 2020-12-02 07:40 | Emergency (ER) | payer MEDICAID, SELFPAY ==
[2020-12-02 07:41] VITALS: BP 122/82; PULSE 102; RESP 16; TEMP 36.6; O2SAT 100; BMI 28.0
--- NOTE | 2020-12-02 07:56 | ED.VIS.BACK ---
HPI History of Present Illness Chief Complaint: Back Informant: patient Narrative Narrative: 35-year-old female presents to the emergency department for the evaluation of back pain. Patient states she has chronic back pain and is currently seeing Dr. Rodriguez with pain management. She states that she had an MRI done last week which she has not gotten the results on. Her next follow-up appointment is in 2 days. She states that since the MRI she has had worsening pain. Worsening symptoms of left leg pain and right hip pain. Patient denies any bowel or bladder dysfunction. She denies any fevers. States that she got a steroid injection in the spring. She states that she called the office a couple times and was referred to the emergency department to help bridge her pain until she can be seen. [facility] Medical History Anxiety Arthritis Back pain Carpal tunnel syndrome Degenerative disc disease Diabetes Generalized anxiety disorder with panic attacks H/O breast lump Hypocalcemia Hypoglycemia Hypokalemia Hypothyroidism Polycystic ovaries Seasonal allergies TMJ (temporomandibular joint syndrome) Vitamin deficiency Home Medications calcium carbonate 300 mg PO DAILY 04/02/20 [History Last Taken Unknown] tizanidine 4 mg tablet 4 mg PO TID PRN #90 tab 05/12/20 [Rx Last Taken Unknown] ibuprofen 200 mg tablet 600 mg PO Q6H PRN tab 06/11/20 [History Last Taken Unknown] bisacodyl [Dulcolax (bisacodyl)] 10 mg PO QHS 08/06/20 [History Last Taken Unknown] lorazepam 0.5 mg tablet 0.5 mg PO DAILY PRN #5 tab 08/07/20 [Rx Last Taken Unknown] levothyroxine 125 mcg tablet 125 mcg PO DAILY #90 tab 09/15/20 [Rx Last Taken Unknown] calcitriol 0.5 mcg capsule 1.5 mcg PO DINNER #90 cap 09/25/20 [Rx Last Taken Unknown] diazepam 5 mg PO Q8 PRN #9 tab 12/02/20 [Rx Last Taken Unknown] oxycodone-acetaminophen 1 tab PO Q6H PRN PRN 3 Days #12 tablet 12/02/20 [Rx Last Taken Unknown] Allergy/AdvReac Type Severity Reaction Status Date / Time codeine Allergy can't Verified 12/02/20 07:42 sleep; itching fluoxetine [From Prozac] Allergy causes Verified 12/02/20 07:42 manic state naproxen Allergy nose bleed Verified 12/02/20 07:42 Family History Father Alcoholism Mother Anemia Depression Hypertension Hyperlipemia Diabetes Grandfather Diabetes Myocardial infarction Grandmother Breast cancer Diabetes Surgical History History of partial hysterectomy History of thyroidectomy History of total hysterectomy Social History Smoking Status: Current every day smoker tobacco type: cigarettes Tobacco: How many years used: 20 alcohol intake: never substance use type: does not use what type of physical activity do you participate in: none ROS ROS ED Constitutional Constitutional ED: Denies chills or weight loss Eyes Eyes: Denies change in vision or diplopia ENT ENT ED: Denies ear pain, rhinorrhea or sore throat Cardiovascular Cardiovascular: Denies chest pain, orthopnea, palpitations or racing heartbeat Respiratory/Chest Respiratory/Chest: Denies cough, dyspnea or orthopnea Gastrointestinal Gastrointestinal: Denies abdominal pain, diarrhea, nausea or vomiting Genitourinary Genitourinary ED: Denies dysuria, hematuria or urinary frequency Musculoskeletal Musculoskeletal: Reports back pain; Denies arthralgias or myalgias Integumentary Denies abscess or rash Neurologic Neurologic: Denies headache(s) or weakness Psychiatric Psychiatric: Denies anxiety, depression, suicidal ideation or suicidal thoughts Endocrine Endocrinology: Denies polydipsia, polyphagia or polyuria Allergic/Immunologic Allergic/Immunologic ED: Denies mouth swelling, tongue swelling or urticaria EXAM Physical Exam Const Vital Signs: 12/02/20 07:41 Temperature 97.8 F Temperature Source Temporal Pulse Rate 102 H Respiratory Rate 16 Blood Pressure 122/82 H Blood Pressure Mean 95 Pulse Ox 100 Oxygen Delivery Method Room Air Positive well nourished and well developed General Appearance ED: well developed HEENT Reports normocephalic, head/scalp atraumatic and moist mucous membranes Eyes PERRL and EOMs intact bilaterally Neck no lymphadenopathy, supple and no JVD Resp normal respiratory effort and clear to auscultation bilaterally Cardio regular rate, regular rhythm and no murmurs GI normal to inspection, nondistended, normoactive bowel sounds and non-tender Palpation: soft Back/Spine no CVA tenderness and normal ROM Back/Spine Narrative: Patient notes hypersensitivity to palpation of the lower back. Painful range of motion. There are no skin findings to suggest underlying infection. Extremity normal to inspection General Extremety ED: Negative for edema General Extremity: Negative for edema Neuro oriented x3, CN's II-XII intact bilaterally and no sensory deficits noted Sensorium / Orientation: alert Motor Exam: strength 5/5 throughout Deep Tendon Reflexes: Rt Patellar (L4): 2+, Lt Patellar (L4): 2+, Rt Ankle (S1): 2+ and Lt Ankle (S1): 2+ Deep Tendon Reflexes Back: Rt Patellar (L4): 2+, Lt Patellar (L4): 2+, Rt Ankle (S1): 2+ and Lt Ankle (S1): 2+ Psych mental status grossly normal Mood & Affect: Negative for depressed or tearful Skin no rashes or lesions noted and no wounds MDM MDM MDM Narrative Medical decision making narrative: The patient's MRI was reviewed. Her OARRS report was reviewed. We will give her a dose of Toradol here. I can write for a short course of Valium and Percocet. She has follow-up in 2 days. Discharge Plan Triage Chief Complaint: Back ED Provider: Marcelo Loza Dx/Rx/DC Orders Clinical Impression: Acute back pain with radiculopathy Instructions: ED Sciatica Prescriptions: New oxycodone-acetaminophen [oxycodone-acetaminophen] 1 TABLET tablet 1 tab PO Q6H PRN PRN (Reason: Pain) 3 Days Qty: 12 RF: 0 diazepam [diazepam] 5 MG tablet 5 mg PO Q8 PRN (Reason: Muscle Spasm) Qty: 9 RF: 0 No Action ibuprofen 200 mg tablet 600 mg PO Q6H PRN (Reason: Pain) RF: 0 lorazepam 0.5 mg tablet 0.5 mg PO DAILY PRN (Reason: anxiety) Qty: 5 RF: 0 calcium carbonate 300 MG tablet,chewable 300 mg PO DAILY RF: 0 bisacodyl [Dulcolax (bisacodyl)] 5 mg Tablet,Delayed Release (Dr/Ec) 10 mg PO QHS RF: 0 tizanidine 4 mg tablet 4 mg PO TID PRN (Reason: muscle spasticity) Qty: 90 RF: 2 levothyroxine 125 mcg tablet 125 mcg PO DAILY Qty: 90 RF: 1 calcitriol 0.5 mcg capsule 1.5 mcg PO DINNER Qty: 90 RF: 5 Primary Care Provider: Levi Kent Referrals: Gerrado Azul DO [NON-STAFF] - Keep Jennifer appointment Levi Kent MD [Primary Care Provider] - Activity Restrictions/Additional Instructions: If using the Valium do not use Ativan (lorazepam). If using the Valium do not take your tizanidine. Disposition Disposition: Home, Self Care
[2020-12-02] MEDS: Ketorolac 60 MG/2 ML Vial IM (08:03)
== END 2020-12-02 08:33 | disposition home or self-care (01) ==
LOC: ED 08:07
PROVIDERS: Emergency Provider Emergency Medicine; PCP Internal Medicine
DX: G89.29 Other chronic pain (principal); M19.90 Unspecified osteoarthritis, unspecified site; E11.9 Type 2 diabetes mellitus without complications; Z79.899 Other long term (current) drug therapy; F17.210 Nicotine dependence, cigarettes, uncomplicated; M54.9 Dorsalgia, unspecified; E03.9 Hypothyroidism, unspecified
CPT/HCPCS: 96372; 99283

== ENCOUNTER → 2021-01-12 09:39 | Outpatient (CLI) | payer MEDICAID, SELFPAY ==
[2021-01-12 12:38] LABS: ALB/GLOB Ratio 1.1 RATIO (0.9-2.4); AST(SGOT) 11 U/L (15-37); Alanine Aminotransfer ALT/SGPT 24 U/L (13-56); Albumin, Serum 3.8 g/dL (3.2-5.0); Alkaline Phosphatase 44 U/L (45-117); Anion Gap 8 (5-15); BUN 12 mg/dL (7-18); BUN/Creat Ratio 12.8 RATIO (10-20); Calcium,Total 7.9 mg/dL (8.5-10.1); Chloride 102 mmol/L (98-107); Creatinine, Serum 0.94 mg/dL (0.55-1.02); EST Glomerular Filtration Rate 71 mL/min (>60); Est Glom Filt Rate - Afr Amer 86 mL/min (>60); Globulin 3.6 g/dL (2.2-4.2); Glucose 84 mg/dL (74-106); Potassium 3.7 mmol/L (3.5-5.1); Protein, Total 7.4 g/dL (6.4-8.2); Sodium Level 139 mmol/L (136-145); T4 Free Direct 1.34 ng/dL (0.76-1.46); Thyroid Stim Hormone (TSH) 0.74 uIU/mL (0.358-3.74)
== END ==
PROVIDERS: PCP Internal Medicine; Referring Provider Internal Medicine Endocrinology, Diabetes & Metabolism; Visit Provider Internal Medicine Endocrinology, Diabetes & Metabolism
DX: E89.2 Postprocedural hypoparathyroidism (principal); E89.0 Postprocedural hypothyroidism
CPT/HCPCS: 36415; 80053; 84439; 84443

== ENCOUNTER 2021-01-21 10:23 | Emergency (ER) | payer MEDICAID, SELFPAY ==
[2021-01-21 10:25] VITALS: BP 124/70; PULSE 68; RESP 16; TEMP 36.9; O2SAT 100; BMI 28.1
--- NOTE | 2021-01-21 11:05 | CT_ITS ---
STUDY: CT ABDOMEN AND PELVIS WITH CONTRAST REASON FOR EXAM: Female, 35 years old. RLQ pain RADIATION DOSAGE (If Supplied By Facility): CTDIvol = ( 16.569 ) mGy, DLP = ( 1132.88 ) mGycm TECHNIQUE: Transaxial images were obtained from the dome of the diaphragm to the symphysis pubis with oral contrast. Oral and amp; IV and amp; 100mL Isovue-300 was administered. Sagittal and coronal images were reconstructed. Individualized dose optimization techniques were used for this CT. COMPARISON: None. FINDINGS: The visualized lung bases are unremarkable. The visualized portions of the heart are within normal limits. Normal liver. Normal gallbladder and extrahepatic biliary system. Normal spleen. Normal pancreas. Normal bilateral adrenal glands. Normal right kidney. Normal left kidney. Normal visualized stomach. Normal small intestine. Normal colon. There are surgical clips in the region of the appendix consistent with a prior appendectomy. Normal abdominal aorta. Normal inferior vena cava. Normal retroperitoneum. Normal urinary bladder. There is absence of the uterus consistent with a prior hysterectomy. Follicles are seen in both ovaries. A small amount of free fluid is seen along the right side of the cul-de-sac. A ruptured ovarian cyst or follicle. Normal abdominal wall. There are degenerative changes of the visualized lumbar spine. Loss of the normal lumbar lordosis. CT/Abdomen/Pelvis W IV Cont ONLY IMPRESSION: Small amount of free fluid along the right side of the cul-de-sac. Multiple bilateral ovarian follicles. A ruptured right ovarian cyst should be ruled. Electronically Signed: Dimitris Stewart MD at 12:27 EDT , Service support ,
[2021-01-21] MEDS: Ondansetron 4 MG/2 ML Vial IV (11:14)
[2021-01-21] MEDS: Morphine 4 MG/ML Syringe IV (11:14)
[2021-01-21] MEDS: 0.9% Normal Saline 1,000 ML 1000 ML IV (11:14)
[2021-01-21 11:21] LABS: Absolute Neutrophil Count 4.8 X10^3/uL (2.0-7.7); Basophil# 0.07 X10^3/uL; Basophil% 0.8 % (0-1); Eosinophil# 0.16 X10^3/uL; Eosinophils% 1.9 % (0-5); Hematocrit 44.2 % (37-47); Lymphocyte % 34.9 % (19-41); Mean Corp Hgb Conc 33.9 g/dL (32-36); Mean Corpuscular Hgb 30.1 pg (27.0-32.0); Mean Corpuscular Volume 88.8 fL (81-99); Mean Platelet Vol. 11.7 fl (6.2-12.0); Monocyte# 0.56 X10^3/uL; Monocyte% 6.5 % (0-10); NRBC Flagged by Analyzer 0 % (0-5); Neutrophil # 4.78 X10^3/uL (2.7-7.7); Neutrophil % 55.7 % (47-70); Platelet Count 360 K/mm3 (150-450); RBC Distribution Width CV 12.1 % (11.6-14.6); RBC Distribution Width SD 39.2 fl (35.1-43.9); Red Blood Count 4.98 M/mm3 (4.2-5.4); White Blood Count 8.6 K/mm3 (4.4-11.0)
[2021-01-21 11:31] LABS: ALB/GLOB Ratio 1.1 RATIO (0.9-2.4); AST(SGOT) 13 U/L (15-37); Alanine Aminotransfer ALT/SGPT 24 U/L (13-56); Albumin, Serum 4.2 g/dL (3.2-5.0); Alkaline Phosphatase 47 U/L (45-117); Anion Gap 5 (5-15); BUN 13 mg/dL (7-18); BUN/Creat Ratio 14.9 RATIO (10-20); Calcium,Total 8.5 mg/dL (8.5-10.1); Chloride 105 mmol/L (98-107); Creatinine, Serum 0.88 mg/dL (0.55-1.02); EST Glomerular Filtration Rate 77 mL/min (>60); Est Glom Filt Rate - Afr Amer 93 mL/min (>60); Estimated Creatinine Clearance 94.65 ml/min; Globulin 3.8 g/dL (2.2-4.2); Glucose 95 mg/dL (74-106); Lipase 84 U/L (73-393); Potassium 3.5 mmol/L (3.5-5.1); Sodium Level 139 mmol/L (136-145)
--- NOTE | 2021-01-21 11:43 | RAD_ITS ---
STUDY: X-RAY - PELVIS AND RIGHT HIP REASON FOR EXAM: Female, 35 years old. Injury/Pain TECHNIQUE: 3 views of the pelvis and hip. COMPARISON: None. FINDINGS: There is a non-specific bowel gas pattern. Contrast is seen within the bladder and both ureters secondary to recent CT scan. Normal bilateral iliac wings, sacroiliac joints and visualized sacrum. Normal bilateral superior and inferior pubic rami. Normal pubic symphysis. Normal bilateral ischial tuberosities. Normal visualized femoral head. Normal acetabulum. Normal hip joint. RAD/HIP, UNI W/ Pelvis 2-3 Views IMPRESSION: Normal x-ray examination of the pelvis and hip. Electronically Signed: Dimitris Stewart MD at 12:27 EDT , Service support ,
[2021-01-21 12:07] LABS: Bacteria 0 SEEN /hpf (None Seen); Mucous, Urine 0 SEEN /hpf (<or=2+); White Blood Cells 0 SEEN /hpf (0-5)
[2021-01-21 12:09] LABS: Color, Urine Yellow (Yellow); Glucose, Dipstick Normal (Normal); Ketone-Dipstick Negative (Negative); Leukocyte Esterase-Dipstick Negative /ul (Negative); Nitrite-Dipstick Negative (Negative); Occult Blood-Urine 10 /ul (Negative); Protein-Dipstick Negative (Negative); Specific Gravity, Urine 1.005 (1.002-1.030); Urine Bilirubin Dipstick Negative (Negative); Urine Clarity Sl. Cloudy (Clear); Urine Urobilinogen Normal (Normal)
[2021-01-21 12:14] LABS: Red Blood Cells-Urine 0-5 SEEN /hpf (0-5); Squamous Epithelial Cells - UA 0-5 SEEN /hpf (5-10)
[2021-01-21 12:15] LABS: Internal QC Validated? YES +Cl - CLEAR BKGD; Pregnancy, Urine Negative Negative
[2021-01-21 13:45] VITALS: PULSE 74; RESP 16; O2SAT 100
--- NOTE | 2021-01-21 14:34 | EX.ED.DYSGE1 ---
HPI History of Present Illness Chief Complaint: Abd Pain Informant: patient Narrative Narrative: Patient is a 35-year-old female presenting with low back pain, right lower quadrant abdominal pain and right groin pain. Patient states she does have a history of a bad back with 2 bulging disks. She states yesterday morning she went to stand up in office and she had pain in her right groin. She knows she had back pain but then she had pain in her right lower quadrant which she is never had with her back pain. She notes her pain is worse with right hip movements. She has taken a muscle relaxer, tizanidine as well as Tylenol arthritis strength with no relief of her symptoms. She developed nausea today. She denies any urinary symptoms. She notes she did have an ultrasound last month with her [employer] that showed ovarian cyst and she was opposed to follow-up but did not. [facility] Medical History Anxiety Arthritis Back pain Carpal tunnel syndrome Degenerative disc disease Diabetes Generalized anxiety disorder with panic attacks H/O breast lump Hypocalcemia Hypoglycemia Hypokalemia Hypothyroidism Polycystic ovaries Seasonal allergies TMJ (temporomandibular joint syndrome) Vitamin deficiency Home Medications calcium carbonate 300 mg PO DAILY 04/02/20 [History Last Taken Unknown] bisacodyl [Dulcolax (bisacodyl)] 10 mg PO QHS 08/06/20 [History Last Taken Unknown] levothyroxine 125 mcg tablet 125 mcg PO DAILY #90 tab 09/15/20 [Rx Last Taken Unknown] calcitriol 0.5 mcg capsule 1.5 mcg PO DINNER #90 cap 09/25/20 [Rx Last Taken Unknown] acetaminophen 325 mg capsule 325 mg PO ONCE PRN 12/04/20 [History Last Taken Unknown] tizanidine 4 mg tablet 4 mg PO TID PRN #90 tab 12/24/20 [Rx Last Taken Unknown] hydrocodone-acetaminophen 1 tab PO Q8H PRN 3 Days #9 tab 01/21/21 [Rx Last Taken Unknown] Allergy/AdvReac Type Severity Reaction Status Date / Time codeine Allergy can't Verified 01/21/21 10:56 sleep; itching fluoxetine [From Prozac] Allergy causes Verified 01/21/21 10:56 manic state naproxen Allergy nose bleed Verified 01/21/21 10:56 Family History Father Alcoholism Mother Anemia Depression Hypertension Hyperlipemia Diabetes Grandfather Diabetes Myocardial infarction Grandmother Breast cancer Diabetes Surgical History History of partial hysterectomy History of thyroidectomy History of total hysterectomy Social History Smoking Status: Current every day smoker tobacco type: cigarettes Tobacco: How many years used: 20 alcohol intake: never substance use type: does not use what type of physical activity do you participate in: none ROS ROS ED Constitutional Constitutional ED: Denies chills or fever(s) Eyes Eyes: Denies change in vision ENT ENT ED: Denies ear pain Cardiovascular Cardiovascular: Denies chest pain Respiratory/Chest Respiratory/Chest: Denies cough or dyspnea Gastrointestinal Gastrointestinal: Reports abdominal pain, constipation and nausea; Denies diarrhea or vomiting Genitourinary Genitourinary ED: Denies dysuria or hematuria Musculoskeletal Musculoskeletal: Reports back pain; Denies myalgias Integumentary Denies rash Neurologic Neurologic: Denies headache(s), paresthesias or weakness Psychiatric Psychiatric: Denies depression EXAM Physical Exam Const Vital Signs: 01/21/21 10:25 01/21/21 13:45 Temperature 98.5 F Temperature Source Temporal Pulse Rate 68 74 Respiratory Rate 16 16 Blood Pressure 124/70 H Blood Pressure Mean 88 Pulse Ox 100 100 Oxygen Delivery Method Room Air Room Air Positive well nourished and well developed General Appearance ED: well developed HEENT Reports moist mucous membranes Negative for trauma Eyes PERRL and EOMs intact bilaterally Neck supple Chest Wall inspection of chest normal Resp normal respiratory effort and clear to auscultation bilaterally Cardio regular rate, regular rhythm and no murmurs GI normal to inspection, nondistended, normoactive bowel sounds GI Narrative: Mild tenderness to palpation of the right lower quadrant and also right groin. No hernia appreciated. Palpation: tender; Negative for guarding Back/Spine no CVA tenderness Back/Spine Narrative: Mild tenderness to palpation of the right lumbar paraspinal region Lumbar Spine / Lower Back: Negative for lumbar spinal tenderness Extremity normal to inspection General Extremety ED: Negative for edema or tenderness General Extremity: Negative for edema Neuro oriented x3 and CN's II-XII intact bilaterally Sensorium / Orientation: alert Sensory Exam: No sensory level loss detected Motor Exam: Negative for strength abnormal Psych mental status grossly normal Skin no rashes or lesions noted MDM MDM MDM Narrative Medical decision making narrative: Patient evaluated for atraumatic low back pain as well as pain in her right lower quadrant into her right groin. Differential includes muscle skeletal pain, hernia, appendicitis, ovarian pathology and kidney stone. Patient is given a dose of morphine, Zofran and fluids in the ER. Her work-up is largely unremarkable on lab work. CT does show small amount of free fluid along the right side of the cul-de-sac with multiple bilateral ovarian follicles. A ruptured right ovarian cyst should be ruled out. It is quite possible that she does have a ruptured cyst. Patient states she does have a history of cyst and is actually supposed to follow-up for repeat pelvic ultrasound. I suspect she has a component of ovarian cyst causing her pain as well as her chronic back pain. I do not think she requires further inpatient evaluation and I do think she stable for outpatient follow-up. Patient is agreeable with this. She will be given a prescription for [place] for pain control as well as Zofran. She is encouraged to follow-up with her [employer] as well as her PCP. Patient is counseled on signs and symptoms requiring return to the emergency room. Patient verbalizes agreement and understand this plan. Patient discharged home in stable and improved condition. Lab Data Labs: Laboratory Results - last 24 hr 01/21/21 01/21/21 01/21/21 10:33 10:33 12:05 WBC 8.6 RBC 4.98 Hgb 15.0 Hct 44.2 MCV 88.8 MCH 30.1 MCHC 33.9 RDW Std Deviation 39.2 RDW Coeff of Jenn 12.1 Plt Count 360 MPV 11.7 Immature Gran % (Auto) 0.200 Neut % (Auto) 55.7 Lymph % (Auto) 34.9 [place] % (Auto) 6.5 Eos % (Auto) 1.9 Baso % (Auto) 0.8 Absolute Neuts (auto) 4.8 Absolute Lymphs (auto) 3.00 Nucleated RBC % 0 Sodium 139 Potassium 3.5 Chloride 105 Carbon Dioxide 29.0 Anion Gap 5 BUN 13 Creatinine 0.88 Estim Creat Clear Calc 94.65 Est GFR (MDRD) Af Amer 93 Est GFR (MDRD) Non-Af 77 BUN/Creatinine Ratio 14.9 Glucose 95 Calcium 8.5 Total Bilirubin 0.30 AST 13 L ALT 24 Alkaline Phosphatase 47 Total Protein 8.0 Albumin 4.2 Globulin 3.8 Albumin/Globulin Ratio 1.1 Lipase 84 Urine Color Yellow Urine Clarity Sl. Cloudy Urine pH 7.0 Ur Specific [place] 1.005 Urine Protein Negative Urine Glucose (UA) Normal Urine Ketones Negative Urine Occult Blood 10 H Urine Nitrite Negative Urine Bilirubin Negative Urine Urobilinogen Normal Ur Leukocyte Esterase Negative Urine RBC 0-5 SEEN Urine WBC 0 SEEN Ur Squamous Epith Cells 0-5 SEEN Urine Bacteria 0 SEEN Urine Mucus 0 SEEN Urine Test Negative Radiography X-Ray: Right Hip, Read by ED Physician, Read by Radiologist and Normal Bony Alignment Diagnostic Testing: Clinical Impression(s) from Imaging Studies Abdomen/Pelvis CT 01/21/21 11:05 IMPRESSION: Small amount of free fluid along the right side of the cul-de-sac. Multiple bilateral ovarian follicles. A ruptured right ovarian cyst should be ruled. Electronically Signed: Dimitris Stewart MD at 12:27 EDT , Service support , Hip/Pelvis X-Ray 01/21/21 11:43 IMPRESSION: Normal x-ray examination of the pelvis and hip. Electronically Signed: Dimitris Stewart MD at 12:27 EDT , Service support , Discharge Plan Triage Chief Complaint: Abd Pain ED Provider: Kalpana Hartmann Dx/Rx/DC Orders Clinical Impression: Ovarian cyst, Right lower quadrant abdominal pain, Acute exacerbation of chronic low back pain Instructions: ED Back Pain (Acute or Chronic), ED Ovarian Cyst Prescriptions: New hydrocodone-acetaminophen 5-325 mg tablet 1 tab PO Q8H PRN (Reason: pain) 3 Days Qty: 9 RF: 0 No Action acetaminophen [Tylenol] 325 mg capsule 325 mg PO ONCE PRN (Reason: Pain) RF: 0 calcium carbonate 300 MG tablet,chewable 300 mg PO DAILY RF: 0 bisacodyl [Dulcolax (bisacodyl)] 5 mg Tablet,Delayed Release (Dr/Ec) 10 mg PO QHS RF: 0 levothyroxine 125 mcg tablet 125 mcg PO DAILY Qty: 90 RF: 1 calcitriol 0.5 mcg capsule 1.5 mcg PO DINNER Qty: 90 RF: 5 tizanidine 4 mg tablet 4 mg PO TID PRN (Reason: muscle spasticity) Qty: 90 RF: 2 Primary Care Provider: Levi Kent Referrals: Levi Kent MD [Primary Care Provider] - Activity Restrictions/Additional Instructions: Your CT did show findings with ovarian cyst. Please follow-up with your [employer] for further evaluation of this. You likely need a repeat ultrasound. Disposition Disposition: Home, Self Care Discharge Date/Time: 01/21/21 14:51
== END 2021-01-21 14:51 | disposition home or self-care (01) ==
PROVIDERS: Emergency Provider Emergency Medicine; PCP Internal Medicine
DX: N83.209 Unspecified ovarian cyst, unspecified side (principal); R10.31 Right lower quadrant pain; M54.50 Low back pain, unspecified; G89.29 Other chronic pain; F17.210 Nicotine dependence, cigarettes, uncomplicated; E03.9 Hypothyroidism, unspecified; Z79.899 Other long term (current) drug therapy
CPT/HCPCS: 73502; 74177; 80053; 81001; 81025; 83690; 85025; 96361; 96374; 96375; 99284; J7030; Q9967; A4216; J2405

== ENCOUNTER → 2021-02-16 16:14 | Outpatient (CLI) | payer MEDICAID, SELFPAY ==
[2021-02-16 18:19] LABS: Estradiol 107.9 pg/mL; Follicle Stimulating Hormone 4.2 mIU/mL; Luteinizing Hormone 8.7 mIU/mL; T4 Free Direct 1.25 ng/dL (0.76-1.46); Thyroid Stim Hormone (TSH) 1.88 uIU/mL (0.358-3.74)
== END ==
PROVIDERS: PCP Internal Medicine; Visit Provider Obstetrics & Gynecology
DX: R10.2 Pelvic and perineal pain (principal)
CPT/HCPCS: 36415; 82670; 83001; 83002; 84439; 84443

== ENCOUNTER → 2021-02-27 08:27 | Outpatient (CLI) | payer MEDICAID, SELFPAY | PROVIDERS: PCP Internal Medicine; Referring Provider Internal Medicine; Visit Provider Internal Medicine | DX: Z11.52 Encounter for screening for COVID-19 (principal) | CPT/HCPCS: 87635; U0005; U0003 ==

== ENCOUNTER 2021-03-27 07:53 | Emergency (ER) | payer MEDICAID, SELFPAY ==
[2021-03-27 07:54] VITALS: BP 123/90; PULSE 76; RESP 16; TEMP 36.9; O2SAT 98; BMI 27.9
[2021-03-27 08:05] VITALS: O2SAT 95
--- NOTE | 2021-03-27 08:05 | EKG12_ITS ---
Test Reason : CP Blood Pressure : / mmHG Vent. Rate : 058 BPM Atrial Rate : 058 BPM P-R Int : 144 ms QRS Dur : 084 ms QT Int : 432 ms P-R-T Axes : 061 053 042 degrees QTc Int : 424 ms Sinus bradycardia Otherwise normal ECG Confirmed by BIBI BONNER, SUSAN ([id number]), editorial intern CELIA BYRD ([id number]) on 03/30/2021 9:49:23 AM Referred By: RAIN Confirmed By:SUSAN MTZ MD
--- NOTE | 2021-03-27 08:06 | ED.VIS.CHEST ---
HPI History of Present Illness Chief Complaint: Chest Pain Detail of Chief Complaint: Chest pain that started 4 AM Informant: patient Narrative Narrative: Patient presents with chest pain that started around 4 AM this morning. She describes retrosternal discomfort to the right side as well. Pain is not pleuritic. She describes more of a heavy pressure or tightness. No radiation of the pain. She denies nausea or vomiting. She denies shortness of breath. Patient is Covid positive with day 11 of symptoms. She has been having headaches. No fevers recently. Slight cough. No family history of heart disease. Patient has no history of PE or DVT. She is not had any recent travel or surgery. Prior Similar Symptoms: No PFSH PFSH Medical History (Updated 03/27/21 @ 10:[address] Katerina Jain, ) Anxiety Arthritis Back pain Carpal tunnel syndrome Chronic constipation Degenerative disc disease Diabetes Generalized anxiety disorder with panic attacks H/O breast lump Hypocalcemia Hypoglycemia Hypokalemia Hypothyroidism Pelvic pain Polycystic ovaries Seasonal allergies Suspected COVID-19 virus infection TMJ (temporomandibular joint syndrome) Upper respiratory infection Vitamin deficiency Home Medications calcium carbonate 300 mg PO DAILY 04/02/20 [History Last Taken Unknown] calcitriol 0.5 mcg capsule 1.5 mcg PO DINNER #90 cap 09/25/20 [Rx Last Taken Unknown] acetaminophen 325 mg capsule 325 mg PO ONCE PRN 12/04/20 [History Last Taken Unknown] tizanidine 4 mg tablet 4 mg PO TID PRN #90 tab 12/24/20 [Rx Last Taken Unknown] polyethylene glycol 3350 17 gram oral powder packet 17 g PO BID #180 ea 02/02/21 [Rx Last Taken Unknown] meclizine 25 mg tablet 25 mg PO BID PRN #20 tab 02/13/21 [Rx Last Taken Unknown] benzonatate 200 mg capsule 200 mg PO TID PRN #30 cap 03/23/21 [Rx Last Taken Unknown] fluticasone propionate 50 mcg/actuation nasal spray,suspension 1 spray INTRANASAL BID #16 g 03/23/21 [Rx Last Taken Unknown] levothyroxine 125 mcg tablet 125 mcg PO DAILY #90 tab 03/23/21 [Rx Last Taken Unknown] prochlorperazine maleate 5 mg tablet 5 mg PO BID PRN #20 tab 03/26/21 [Rx Last Taken Unknown] Allergy/AdvReac Type Severity Reaction Status Date / Time codeine Allergy can't Verified 03/27/21 07:56 sleep; itching fluoxetine [From Prozac] Allergy causes Verified 03/27/21 07:56 manic state naproxen Allergy nose bleed Verified 03/27/21 07:56 Family History Father Alcoholism Mother Anemia Depression Hypertension Hyperlipemia Diabetes Grandfather Diabetes Myocardial infarction Grandmother Breast cancer Diabetes Surgical History History of partial hysterectomy History of thyroidectomy History of total hysterectomy Social History Smoking Status: Current every day smoker tobacco type: cigarettes Tobacco: How many years used: 20 alcohol intake: never substance use type: does not use what type of physical activity do you participate in: none ROS ROS ED Review of Systems ROS Unobtainable: other Constitutional Constitutional ED: Reports lethargy; Denies chills, fever(s), sweats or weight loss Eyes Eyes: Denies blurry vision, change in vision or diplopia ENT ENT ED: Denies rhinorrhea or sore throat Cardiovascular Cardiovascular: Reports chest pain and racing heartbeat; Denies orthopnea Respiratory/Chest Respiratory/Chest: Reports dyspnea and dyspnea on exertion; Denies cough, orthopnea or sputum Gastrointestinal Gastrointestinal: Denies abdominal pain, diarrhea, nausea or vomiting Genitourinary Genitourinary ED: Denies dysuria, hematuria or urinary frequency Musculoskeletal Musculoskeletal: Denies arthralgias, back pain, myalgias or neck pain Integumentary Denies abscess, Abrasions or rash Neurologic Neurologic: Reports headache(s); Denies weakness Psychiatric Psychiatric: Denies anxiety, depression or suicidal thoughts Endocrine Endocrinology: Denies polydipsia, polyphagia or polyuria Hematologic/Lymphatic Hematologic/Lymphatic: Denies easy bleeding, easy bruising or lymphadenopathy Allergic/Immunologic Allergic/Immunologic ED: Denies mouth swelling, tongue swelling or urticaria EXAM Physical Exam Const Vital Signs: 03/27/21 07:54 03/27/21 08:01 03/27/21 08:05 Temperature 98.5 F Temperature Source Temporal Pulse Rate 76 Respiratory Rate 16 Respiratory Effort Normal Non-Labored Respiratory Pattern Normal Blood Pressure 123/90 H Blood Pressure Mean 101 Pulse Ox 98 95 Oxygen Delivery Method Room Air Room Air Positive well nourished and well developed General Appearance ED: well developed and NAD HEENT Reports TM's clear and moist mucous membranes normocephalic and atraumatic; Negative for trauma or tenderness Tympanic Membrane ED: Yes TM's clear Eyes PERRL and EOMs intact bilaterally General Eye ED: Negative for pale conjunctiva or scleral icterus Neck no lymphadenopathy, supple and no JVD General: Negative for tenderness Chest Wall inspection of chest normal and palpation of chest normal Chest: Negative for tenderness Resp normal respiratory effort and clear to auscultation bilaterally Effort and Inspection: Negative for respiratory distress or pain with movement Auscultation: Negative for rhonchi, wheezes or diminished lung sounds Cardio regular rate, regular rhythm, S1 normal heart sound, S2 normal heart sound and no murmurs Peripheral Pulses: pulses 2+ throughout GI normal to inspection, nondistended, normoactive bowel sounds, soft to palpation, non-tender, non-distended and no masses Back/Spine no CVA tenderness and no thoracic nor lumbar tenderness Extremity normal to inspection General Extremety ED: Negative for edema General Extremity: Negative for edema Neuro oriented x3, CN's II-XII intact bilaterally, no sensory deficits noted and gait normal Sensorium / Orientation: awake, alert, oriented to person, oriented to place and oriented to time Motor Exam: strength 5/5 throughout and strength abnormal Psych mental status grossly normal Skin no rashes or lesions noted and no wounds Heart Score History: Slightly/Non-Suspicious ECG: Normal Age: </= 45 years Risk Factors: 1 or 2 Risk Factors Troponin: </= Normal Limit Score: 1 MDM MDM MDM Narrative Medical decision making narrative: Etiology of patient's chest pain unclear. On arrival she was placed on a cardiac cath technician and IV line was established. She received aspirin. Her work-up in the department is unremarkable. Her heart score is a 1 and her chest pain I feel is atypical. I do not suspect an acute coronary syndrome. Patient advised to follow-up with her primary care physician in 3 to 5 days. She is advised to return if worsening pain, increasing shortness of breath, or condition should worsen anyway. Patient advised to use ibuprofen or Tylenol for discomfort. Lab Data Attestation: I reviewed the patient's lab results. Labs: Laboratory Results - last 24 hr 03/27/21 03/27/21 03/27/21 08:05 08:05 08:05 WBC 5.8 RBC 5.01 Hgb 15.0 Hct 43.3 MCV 86.4 MCH 29.9 MCHC 34.6 RDW Std Deviation 37.8 RDW Coeff of Jenn 11.9 Plt Count 273 MPV 11.6 Immature Gran % (Auto) 0.200 Neut % (Auto) 34.8 L Lymph % (Auto) 54.8 H [place] % (Auto) 6.3 Eos % (Auto) 3.0 Baso % (Auto) 0.9 Absolute Neuts (auto) 2.0 Absolute Lymphs (auto) 3.15 Nucleated RBC % 0 D-Dimer Quant (PE/DVT) <= 0.27 Sodium 140 Potassium 4.4 Chloride 107 Carbon Dioxide 26.0 Anion Gap 7 BUN 15 Creatinine 0.85 Estim Creat Clear Calc 97.99 Est GFR (MDRD) Af Amer 97 Est GFR (MDRD) Non-Af 80 BUN/Creatinine Ratio 17.7 Glucose 97 Calcium 7.9 L Troponin I High Sens 4 Radiography Chest X-Ray - ED: 1 View Diagnostic Testing: Clinical Impression(s) from Imaging Studies Chest X-Ray 03/27/21 08:16 IMPRESSION: Normal x-ray examination of the chest. Electronically Signed: Dimitris Stewart MD at 8:31 EST , Service support , 1 view chest x-ray obtained interpreted by myself as no acute disease process EKG Initial EKG: Attestation: I personally reviewed and interpreted this EKG as follows: Comments: Sinus rhythm with a ventricular rate of 58 bpm with no acute ST segment changes Prior EKG tracings: not available for review Discharge Plan Triage Chief Complaint: Chest Pain ED Provider: Katerina Jain Dx/Rx/DC Orders Clinical Impression: Chest pain, COVID-19 Instructions: ED Chest Pain, Uncertain Cause, Caring for Someone Who Has COVID-19 Prescriptions: No Action acetaminophen [Tylenol] 325 mg capsule 325 mg PO ONCE PRN (Reason: Pain) RF: 0 polyethylene glycol 3350 [Miralax] 17 gram powder in packet 17 g PO BID Qty: 180 RF: 3 meclizine 25 mg tablet 25 mg PO BID PRN (Reason: dizziness) Qty: 20 RF: 0 benzonatate 200 mg capsule 200 mg PO TID PRN (Reason: cough) Qty: 30 RF: 1 fluticasone propionate [Flonase Allergy Relief] 50 mcg/actuation spray,suspension 1 spray intranasal BID Qty: 16 RF: 1 calcium carbonate 300 MG tablet,chewable 300 mg PO DAILY RF: 0 calcitriol 0.5 mcg capsule 1.5 mcg PO DINNER Qty: 90 RF: 5 tizanidine 4 mg tablet 4 mg PO TID PRN (Reason: muscle spasticity) Qty: 90 RF: 2 levothyroxine 125 mcg tablet 125 mcg PO DAILY Qty: 90 RF: 0 prochlorperazine maleate [Compazine] 5 mg tablet 5 mg PO BID PRN (Reason: nausea and vomiting) Qty: 20 RF: 0 Primary Care Provider: Levi Kent Referrals: Levi Kent MD [Primary Care Provider] - 3-5 Days Disposition Disposition: Home, Self Care
[2021-03-27 08:14] LABS: Absolute Lymphocyte Count 3.15 X10^3/uL (0.83-4.51); Basophil# 0.05 X10^3/uL; Basophil% 0.9 % (0-1); Eosinophil# 0.17 X10^3/uL; Hematocrit 43.3 % (37-47); Lymphocyte # 3.15 X10^3/ul (0.83-4.51); Lymphocyte % 54.8 % (19-41); Mean Corp Hgb Conc 34.6 g/dL (32-36); Mean Corpuscular Hgb 29.9 pg (27.0-32.0); Mean Corpuscular Volume 86.4 fL (81-99); Mean Platelet Vol. 11.6 fl (6.2-12.0); Monocyte# 0.36 X10^3/uL; Monocyte% 6.3 % (0-10); NRBC Flagged by Analyzer 0 % (0-5); Neutrophil # 2.01 X10^3/uL (2.7-7.7); Neutrophil % 34.8 % (47-70); Platelet Count 273 K/mm3 (150-450); RBC Distribution Width CV 11.9 % (11.6-14.6); RBC Distribution Width SD 37.8 fl (35.1-43.9); Red Blood Count 5.01 M/mm3 (4.2-5.4); White Blood Count 5.8 K/mm3 (4.4-11.0)
--- NOTE | 2021-03-27 08:16 | RAD_ITS ---
STUDY: X-RAY CHEST REASON FOR EXAM: Female, 35 years old. Right-sided sternal chest pain. TECHNIQUE: Single AP portable view of the chest. COMPARISON: Comparison is made with prior study dated 08/31/2018. FINDINGS: EKG electrodes are seen. The lungs are clear and expanded. There is no demonstrated pleural abnormality. Normal size heart. Normal mediastinum and kaylin. Normal visualized pulmonary arteries. Normal visualized aortic arch and descending thoracic aorta. Normal visualized thoracic spine. Normal visualized ribs, clavicles, and shoulders. There is no demonstrated abnormality of the visualized soft tissue structures of the upper abdomen. RAD/Chest 1 View (Portable) IMPRESSION: Normal x-ray examination of the chest. Electronically Signed: Dimitris Stewart MD at 8:31 EST , Service support ,
[2021-03-27] MEDS: Aspirin 81 MG TAB.CHEW 324 MG PO (08:31)
[2021-03-27] MEDS: 0.9% Normal Saline 1,000 ML 150 ML IV (08:31)
[2021-03-27 08:33] LABS: Anion Gap 7 (5-15); BUN 15 mg/dL (7-18); BUN/Creat Ratio 17.7 RATIO (10-20); Calcium,Total 7.9 mg/dL (8.5-10.1); Chloride 107 mmol/L (98-107); Creatinine, Serum 0.85 mg/dL (0.55-1.02); EST Glomerular Filtration Rate 80 mL/min (>60); Est Glom Filt Rate - Afr Amer 97 mL/min (>60); Estimated Creatinine Clearance 97.99 ml/min; Glucose 97 mg/dL (74-106); Potassium 4.4 mmol/L (3.5-5.1); Sodium Level 140 mmol/L (136-145); Troponin-I HS 4 pg/mL (3.0-54.0)
[2021-03-27 09:47] LABS: D-Dimer Quantitative (DVT/PE) <= 0.27 FEU/ug/m (0.27-0.49)
[2021-03-27 10:05] VITALS: BP 94/77; PULSE 60; O2SAT 99
== END 2021-03-27 10:12 | disposition home or self-care (01) ==
PROVIDERS: Emergency Provider Emergency Medicine; PCP Internal Medicine
DX: U07.1 COVID-19 (principal); R07.9 Chest pain, unspecified; F17.210 Nicotine dependence, cigarettes, uncomplicated
CPT/HCPCS: 71045; 80048; 84484; 85025; 85379; 93005; 99284; J7030; A4216

== ENCOUNTER 2021-04-22 08:58 | Emergency (ER) | payer MEDICAID, SELFPAY ==
[2021-04-22 08:59] VITALS: BP 122/77; PULSE 122; RESP 20; TEMP 35.5; O2SAT 96; BMI 26.8
--- NOTE | 2021-04-22 09:14 | EDS_ITS ---
HPI HPI - GI History of Present Illness Chief Complaint: Abd Pain Informant: patient Abdominal Pain/Flank Pain Onset: Month(s) Context: Gradual Onset Timing: Intermittent Quality: Aching Location: RUQ Current Severity: Mild Maximum Severity: Mild Worsened by: Nothing Relieved by: Nothing Nausea/Vomiting/Emesis GI Symptom: Positive for Nausea and Vomiting Onset: Weeks Diarrhea/Melena/Hematochezia GI Symptom: Positive for Diarrhea; Negative for Melena and Hematochezia Associated Symptoms Associated Symptoms: Negative for Dysuria, Frequency, Hematuria and Urgency Narrative Narrative: 35-year-old female with right upper quadrant pain for the last 2 years. She has had ultrasounds has a pending HIDA scan and she has had lab work. She has been seen by her primary care physician's office Dr. Kent. Patient states the last 2 months she had increased nausea and right upper quadrant pain. Associated diarrhea and weight loss. She denies any fever. She had a prior hysterectomy. Prior similar symptoms: Yes Recent Illness/Hospitalization: No PFSH PFSH Medical History Anxiety Arthritis Back pain Carpal tunnel syndrome Chronic constipation Degenerative disc disease Diabetes Generalized anxiety disorder with panic attacks H/O breast lump Hypocalcemia Hypoglycemia Hypokalemia Hypothyroidism Pelvic pain Polycystic ovaries Right upper quadrant pain Seasonal allergies Suspected COVID-19 virus infection TMJ (temporomandibular joint syndrome) Upper respiratory infection Vitamin deficiency Home Medications calcium carbonate 300 mg PO DAILY 04/02/20 [History Last Taken Unknown] calcitriol 0.5 mcg capsule 1.5 mcg PO DINNER #90 cap 09/25/20 [Rx Last Taken Unknown] acetaminophen 325 mg capsule 325 mg PO ONCE PRN 12/04/20 [History Last Taken Unknown] tizanidine 4 mg tablet 4 mg PO TID PRN #90 tab 12/24/20 [Rx Last Taken Unknown] polyethylene glycol 3350 17 gram oral powder packet 17 g PO BID #180 ea 02/02/21 [Rx Last Taken Unknown] meclizine 25 mg tablet 25 mg PO BID PRN #20 tab 02/13/21 [Rx Last Taken Unknown] levothyroxine 125 mcg tablet 125 mcg PO DAILY #90 tab 03/23/21 [Rx Last Taken Unknown] prochlorperazine maleate 5 mg tablet 5 mg PO BID PRN #20 tab 03/26/21 [Rx Last Taken Unknown] cholecalciferol (vitamin D3) 50 mcg (2,000 unit) capsule 50 mcg PO DAILY #90 cap 04/14/21 [Rx Last Taken Unknown] fluticasone propionate 50 mcg/actuation nasal spray,suspension 1 spray INTRANASAL BID #16 g 04/17/21 [Rx Last Taken Unknown] nicotine 21mg/24hr-14mg/24hr-7mg/24hr daily transderm patches,sequentl 1 patch TRANSDERMAL QDAY #70 patch 04/21/21 [Rx Last Taken Unknown] zinc 50 mg tablet 50 mg PO DAILY 04/21/21 [History Last Taken Unknown] ondansetron 4 mg PO Q6H PRN #14 tab 04/22/21 [Rx Last Taken Unknown] Allergy/AdvReac Type Severity Reaction Status Date / Time codeine Allergy can't Verified 04/22/21 08:59 sleep; itching fluoxetine [From Prozac] Allergy causes Verified 04/22/21 08:59 manic state naproxen Allergy nose bleed Verified 04/22/21 08:59 Family History Father Alcoholism Mother Anemia Depression Hypertension Hyperlipemia Diabetes Grandfather Diabetes Myocardial infarction Grandmother Breast cancer Diabetes Surgical History History of partial hysterectomy History of thyroidectomy History of total hysterectomy Social History Smoking Status: Current every day smoker tobacco type: cigarettes Tobacco: How many years used: 20 alcohol intake: never substance use type: does not use what type of physical activity do you participate in: none ROS ROS ED ROS Narrative Right upper quadrant abdominal pain. Nausea and vomiting. Diarrhea. Constitutional Constitutional ED: Denies fever(s) ENT ENT ED: Denies ear pain Cardiovascular Cardiovascular: Denies chest pain Respiratory/Chest Respiratory/Chest: Denies cough or dyspnea Gastrointestinal Gastrointestinal: Reports abdominal pain, diarrhea, nausea and vomiting; Denies constipation or melena Genitourinary Genitourinary ED: Denies dysuria or hematuria Musculoskeletal Musculoskeletal: Denies myalgias Integumentary Denies rash Neurologic Neurologic: Denies headache(s) Psychiatric Psychiatric: Denies depression Endocrine Endocrinology: Denies polyuria Hematologic/Lymphatic Hematologic/Lymphatic: Denies easy bruising Allergic/Immunologic Allergic/Immunologic ED: Denies urticaria EXAM Physical Exam Narrative Exam Narrative: 35-year-old female. Vital signs are stable afebrile. No acute distress. HEENT exam unremarkable. Lungs clear to auscultation. Heart regular rhythm no murmur rate about 100. Abdomen soft. Nondistended normal bowel sounds no peritoneal signs. Right upper quadrant tenderness. No Gallardo sign. Rest of the abdomen is benign. No hernia or mass. No obstruction. Moving all 4 extremities. No edema. Neurologically awake and alert with no focal motor deficits. Const Vital Signs: 04/22/21 08:59 Temperature 96 F L Temperature Source Temporal Pulse Rate 122 H Respiratory Rate 20 H Blood Pressure 122/77 H Blood Pressure Mean 92 Pulse Ox 96 Oxygen Delivery Method Room Air Positive well nourished and well developed; Negative for obese, cachectic, contractures or unkempt General Appearance ED: well developed and NAD; Negative for unkempt, cachectic, contractures or pallor Nutritional Appearance: Negative for cachectic or obese HEENT Reports moist mucous membranes normocephalic and atraumatic; Negative for trauma or tenderness Eyes PERRL and EOMs intact bilaterally Neck no lymphadenopathy, supple and no JVD General: Negative for tenderness Resp normal respiratory effort and clear to auscultation bilaterally Auscultation: Negative for rales, rhonchi or wheezes Cardio regular rate, regular rhythm, S1 normal heart sound, S2 normal heart sound and no murmurs GI non-distended and no masses; Negative for non-tender GI Narrative: Right upper quadrant tenderness only. No Gallardo sign. Inspection: Negative for abdominal distention Auscultation: normoactive bowel sounds; Negative for hyperactive bowel sounds or hypoactive bowel sounds Palpation: soft and tender; Negative for guarding, rigid, hepatomegaly, splenomegaly, hernia, mass, pulsatile mass or rebound tenderness present Back/Spine no CVA tenderness Extremity full ROM General Extremety ED: Negative for edema or tenderness General Extremity: Negative for edema Neuro moves all extremities Sensorium / Orientation: alert, oriented to person, oriented to place and oriented to time; Negative for orientation impaired, confused, lethargic or stuporous Motor Exam: strength 5/5 throughout Psych mental status grossly normal and thought process normal Appearance: Negative for unkempt Skin no wounds General Skin Exam: Negative for jaundice or pallor Lesions: no lesions Rashes: no rashes MDM MDM MDM Narrative Medical decision making narrative: 35-year-old female with right upper quadrant abdominal pain. Has had this for the last 2 years intermittently. Worse in the last couple months. States she got close to having her gallbladder taken out but then developed COVID and insurance issues arose and she never had the procedure done. Labs are pending. I do not think she needs a repeat ultrasound at this time. She has been be treated with morphine, Toradol and Zofran. I did review the patient's old records and she has had an unremarkable CT of the abdomen and right upper quadrant ultrasound in the last 12 to 18 months. Today unless her labs are significantly abnormal I do not think she needs repeat imaging. Most likely she can follow-up with outpatient surgery for further evaluation. Repeat exam patient is doing well at 10:04 AM. Her labs are basically unremarkable. She has no fever and no elevated white count. She has had a prior ultrasound and possibly a HIDA scan at an outside facility. I do not think she needs any today. She will be discharged to home instructions for if she would need to return in for wide and follow-up with a local general surgeon. Lab Data Attestation: I reviewed the patient's lab results. Lab results narrative: CBC normal white count of 9. Hemoglobin 13.8. Electrolytes unremarkable gap of 8 normal BUN and creatinine. Normal liver enzymes. Lipase is 59. Labs: Laboratory Results - last 24 hr 04/22/21 04/22/21 09:10 09:10 WBC 9.3 RBC 4.71 Hgb 13.8 Hct 41.1 MCV 87.3 MCH 29.3 MCHC 33.6 RDW Std Deviation 38.9 RDW Coeff of Jenn 12.0 Plt Count 351 MPV 11.4 Immature Gran % (Auto) 0.200 Neut % (Auto) 56.7 Lymph % (Auto) 33.3 [place] % (Auto) 7.5 Eos % (Auto) 1.4 Baso % (Auto) 0.9 Absolute Neuts (auto) 5.3 Absolute Lymphs (auto) 3.10 Nucleated RBC % 0 Sodium 139 Potassium 3.6 Chloride 107 Carbon Dioxide 24.0 Anion Gap 8 BUN 12 Creatinine 0.98 Estim Creat Clear Calc 84.99 Est GFR (MDRD) Af Amer 82 Est GFR (MDRD) Non-Af 68 BUN/Creatinine Ratio 12.3 Glucose 104 Calcium 8.4 L Total Bilirubin 0.50 AST 12 L ALT 23 Alkaline Phosphatase 45 Total Protein 7.6 Albumin 3.9 Globulin 3.7 Albumin/Globulin Ratio 1.1 Lipase 59 L Discharge Plan Triage Chief Complaint: Abd Pain ED Provider: Michael Ruvalcaba Dx/Rx/DC Orders Clinical Impression: Abdominal pain Instructions: Abdominal Pain Prescriptions: New ondansetron 4 mg tablet,disintegrating 4 mg PO Q6H PRN (Reason: nausea and vomiting) Qty: 14 RF: 0 No Action acetaminophen [Tylenol] 325 mg capsule 325 mg PO ONCE PRN (Reason: Pain) RF: 0 polyethylene glycol 3350 [Miralax] 17 gram powder in packet 17 g PO BID Qty: 180 RF: 3 meclizine 25 mg tablet 25 mg PO BID PRN (Reason: dizziness) Qty: 20 RF: 0 fluticasone propionate [Flonase Allergy Relief] 50 mcg/actuation spray,suspension 1 spray intranasal BID Qty: 16 RF: 1 zinc 50 mg tablet 50 mg PO DAILY RF: 0 nicotine 21-14-7 mg/24 hr patch, TD daily, sequential 1 patch transdermal QDAY Qty: 70 RF: 0 calcium carbonate 300 MG tablet,chewable 300 mg PO DAILY RF: 0 calcitriol 0.5 mcg capsule 1.5 mcg PO DINNER Qty: 90 RF: 5 tizanidine 4 mg tablet 4 mg PO TID PRN (Reason: muscle spasticity) Qty: 90 RF: 2 levothyroxine 125 mcg tablet 125 mcg PO DAILY Qty: 90 RF: 0 prochlorperazine maleate [Compazine] 5 mg tablet 5 mg PO BID PRN (Reason: nausea and vomiting) Qty: 20 RF: 0 cholecalciferol (vitamin D3) 50 mcg (2,000 unit) capsule 50 mcg PO DAILY Qty: 90 RF: 3 Primary Care Provider: Levi Kent Referrals: Av Turner MD [STAFF PHYSICIAN] - As soon as possible Levi Kent MD [Primary Care Provider] - Activity Restrictions/Additional Instructions: Home follow-up with one of the general surgeons soon as possible. Motrin and/or Tylenol for pain. Zofran as needed for nausea which you may swallow or dissolve under your tongue. Prescription at your pharmacy. Return to emergency department if feeling a lot worse or having a fever or intractable vomiting. At this time this can be worked up electively and decide if your gallbladder needs to come out after you see the general surgeon. Disposition Disposition: Home, Self Care
[2021-04-22] MEDS: morphine 8 MG/ML Syringe IV (09:20)
[2021-04-22] MEDS: Ketorolac 30 MG/ML Syringe IV (09:20)
[2021-04-22] MEDS: Ondansetron 4 MG/2 ML Vial IV (09:20)
[2021-04-22] MEDS: 0.9% Normal Saline 1,000 ML 1000 ML IV (09:20)
[2021-04-22 09:35] LABS: ALB/GLOB Ratio 1.1 RATIO (0.9-2.4); AST(SGOT) 12 U/L (15-37); Alanine Aminotransfer ALT/SGPT 23 U/L (13-56); Albumin, Serum 3.9 g/dL (3.2-5.0); Alkaline Phosphatase 45 U/L (45-117); Anion Gap 8 (5-15); BUN 12 mg/dL (7-18); BUN/Creat Ratio 12.3 RATIO (10-20); Calcium,Total 8.4 mg/dL (8.5-10.1); Chloride 107 mmol/L (98-107); Creatinine, Serum 0.98 mg/dL (0.55-1.02); EST Glomerular Filtration Rate 68 mL/min (>60); Est Glom Filt Rate - Afr Amer 82 mL/min (>60); Estimated Creatinine Clearance 84.99 ml/min; Globulin 3.7 g/dL (2.2-4.2); Glucose 104 mg/dL (74-106); Lipase 59 U/L (73-393); Potassium 3.6 mmol/L (3.5-5.1); Protein, Total 7.6 g/dL (6.4-8.2); Sodium Level 139 mmol/L (136-145)
[2021-04-22 09:37] LABS: Absolute Neutrophil Count 5.3 X10^3/uL (2.0-7.7); Basophil# 0.08 X10^3/uL; Basophil% 0.9 % (0-1); Eosinophil# 0.13 X10^3/uL; Eosinophils% 1.4 % (0-5); Hematocrit 41.1 % (37-47); Hemoglobin 13.8 g/dL (12.0-15.0); Lymphocyte % 33.3 % (19-41); Mean Corp Hgb Conc 33.6 g/dL (32-36); Mean Corpuscular Hgb 29.3 pg (27.0-32.0); Mean Corpuscular Volume 87.3 fL (81-99); Mean Platelet Vol. 11.4 fl (6.2-12.0); Monocyte% 7.5 % (0-10); NRBC Flagged by Analyzer 0 % (0-5); Neutrophil # 5.29 X10^3/uL (2.7-7.7); Neutrophil % 56.7 % (47-70); Platelet Count 351 K/mm3 (150-450); RBC Distribution Width SD 38.9 fl (35.1-43.9); Red Blood Count 4.71 M/mm3 (4.2-5.4); White Blood Count 9.3 K/mm3 (4.4-11.0)
[2021-04-22 10:23] VITALS: BP 108/78; PULSE 77; RESP 16; O2SAT 100
== END 2021-04-22 10:24 | disposition home or self-care (01) ==
PROVIDERS: Emergency Provider Emergency Medicine; PCP Internal Medicine; Visit Provider Emergency Medicine
DX: R10.11 Right upper quadrant pain (principal); E11.9 Type 2 diabetes mellitus without complications; E03.9 Hypothyroidism, unspecified; F17.210 Nicotine dependence, cigarettes, uncomplicated; Z79.899 Other long term (current) drug therapy; Z86.16 Personal history of COVID-19
CPT/HCPCS: 80053; 83690; 85025; 96374; 96375; 99283; J7030; A4216; J2405

== ENCOUNTER 2021-04-25 08:41 | Outpatient (CLI) | payer MEDICAID, SELFPAY ==
--- NOTE | 2021-04-25 08:43 | US_ITS ---
EXAM: US ABDOMEN LIMITED, RIGHT UPPER QUADRANT CLINICAL INDICATION: RUQ abdominal pain TECHNIQUE: Real-time ultrasound of the right upper quadrant with image documentation. This report was created using [employer] report generation technology. COMPARISON: None. FINDINGS: LIVER: Increased echogenicity of the liver is nonspecific but most commonly associated with hepatic steatosis. No hepatic masses. GALLBLADDER: Positive sonographic WATERS sign. Single nonshadowing echogenic focus of the gallbladder likely represents tumefactive sludge versus nonshadowing stone. No gallbladder wall thickening is demonstrated. No pericholecystic fluid. COMMON BILE DUCT: Unremarkable as visualized. The proximal common bile duct is within normal limits for the patient''s age. PANCREAS: Unremarkable as visualized. No focal abnormality is demonstrated in the pancreas. No pancreatic ductal dilatation. RIGHT KIDNEY: Unremarkable. There is no hydronephrosis. No shadowing calculus. No focal lesion or perinephric collection is demonstrated. US/Gallbladder IMPRESSION: Tumefactive sludge versus solitary gallstone. Positive sonographic WATERS sign. However, absent gallbladder wall thickening and pericholecystic fluid. Electronically Signed: Sathish Hernández MD ([place]) at 9:35 EST ,
== END 2021-04-25 23:59 | disposition short-term general hospital (02) ==
PROVIDERS: PCP Internal Medicine; Referring Provider Surgery; Visit Provider Surgery
DX: R10.11 Right upper quadrant pain (principal)
CPT/HCPCS: 76705

== ENCOUNTER 2021-04-29 09:28 | Day surgery (SDC) | payer MEDICAID, SELFPAY ==
[2021-04-29] VITALS (7 sets, daily range): BP systolic 97–116; BP diastolic 59–76; PULSE 16–83; RESP 16–18; TEMP 36.3–36.8; O2SAT 96–100; BMI 26.8
--- NOTE | 2021-04-29 | GALL_PTH ---
PATIENT: AMY V[place]A [place] [facility] [id number] AGE/SX: 35/F ROOM: RE04/29/[address]: Dr. Tara Rob MD : 1985 BED: DIS: 04/29/2021 SPEC #: [id number] RECD: 04/29/21 15:54 STATUS: NICOLE RIAN #: [id number] MERLE: 04/29/21 00:[address]: Tara Rob DEPT: SURGICAL PATHOLOGY RECD BY: Carlos Oconnell ENTERED: 04/30/21 12:20 SP TYPE: SOLITARIO DOMINGO DR: Dr. Levi Kent MD Tissues: Gallbladder, NOS Procedures: Surgery Specimen Level III HEADER OPERATION: Laparoscopic cholecystectomy with IOC PRE-OP DIAGNOSIS: Right upper quadrant and epigastric pain TISSUE SUBMITTED: Gallbladder MICROSCOPIC DIAGNOSIS Gallbladder, cholecystectomy: Chronic cholecystitis. AM:almaz 05/01/2021 MICROSCOPIC DESCRIPTION Slides are reviewed. GROSS DESCRIPTION Received is one container labeled with the patient's name and designated gallbladder. The specimen consists of a gallbladder measuring 6.5 cm in length and up to 3.5 cm in diameter. The external surface is pink-whyte, smooth and glistening for the most part. Focally it is granular, hemorrhagic and contains cautery artifact. The gallbladder contains green-yellow mucoid bile. No stones are identified in the container or in the gallbladder. The mucosa is bile-stained and without any mass lesions. The gallbladder wall measures up to 0.2 cm in thickness. Nurse Emergency sections from the gallbladder and the cystic duct are submitted in one cassette. / SJ:rg 04/30/2021 TC:3 CPT: 64463
--- NOTE | 2021-04-29 09:44 | EKG12_ITS ---
Test Reason : PRE OP Blood Pressure : / mmHG Vent. Rate : 056 BPM Atrial Rate : 056 BPM P-R Int : 152 ms QRS Dur : 086 ms QT Int : 424 ms P-R-T Axes : 061 042 037 degrees QTc Int : 409 ms Sinus bradycardia Otherwise normal ECG When compared with ECG of 27-MAR-2021 08:06, No significant change was found Confirmed by PAT BONNER, KIRIT ([id number]), science editor CELIA BYRD ([id number]) on 05/05/2021 10:06:29 AM Referred By: Tara Rob Confirmed By:KIRIT STEWART MD
[2021-04-29] MEDS: Lactated Ringers 1,000 ML 15 ML IV ×3 (10:14→13:06)
--- NOTE | 2021-04-29 10:58 | HP.PCM_ITS ---
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 [employer] Required: No Is patient in pain?: Yes (ruq abd) Pain scale (1-10): 5 Allergies codeine Allergy (Verified 04/23/21 08:23) can't sleep; itching fluoxetine [From Prozac] Allergy (Verified 04/23/21 08:23) causes manic state naproxen Allergy (Verified 04/23/21 08:23) nose bleed Medications calcium carbonate 300 mg PO DAILY 04/02/20 [History Confirmed 04/23/21] calcitriol 0.5 mcg capsule 1.5 mcg PO DINNER #90 cap 09/25/20 [Rx Confirmed 04/23/21] acetaminophen 325 mg capsule 325 mg PO ONCE PRN 12/04/20 [History Confirmed 04/23/21] tizanidine 4 mg tablet 4 mg PO TID PRN #90 tab 12/24/20 [Rx Confirmed 04/23/21] polyethylene glycol 3350 17 gram oral powder packet 17 g PO BID #180 ea 02/02/21 [Rx Confirmed 04/23/21] meclizine 25 mg tablet 25 mg PO BID PRN #20 tab 02/13/21 [Rx Confirmed 04/23/21] levothyroxine 125 mcg tablet 125 mcg PO DAILY #90 tab 03/23/21 [Rx Confirmed 04/23/21] prochlorperazine maleate 5 mg tablet 5 mg PO BID PRN #20 tab 03/26/21 [Rx Confirmed 04/23/21] cholecalciferol (vitamin D3) 50 mcg (2,000 unit) capsule 50 mcg PO DAILY #90 cap 01/04/22 [Rx Confirmed 04/23/21] fluticasone propionate 50 mcg/actuation nasal spray,suspension 1 spray INTRANASAL BID #16 g 04/17/21 [Rx Confirmed 04/23/21] nicotine 21mg/24hr-14mg/24hr-7mg/24hr daily transderm patches,sequentl 1 patch TRANSDERMAL QDAY #70 patch 04/21/21 [Rx Confirmed 04/23/21] zinc 50 mg tablet 50 mg PO DAILY 04/21/21 [History Confirmed 04/23/21] ondansetron 4 mg PO Q6H PRN #14 tab 04/22/21 [Rx Confirmed 04/23/21] famotidine 20 mg tablet 20 mg PO DAILY #14 tab 04/23/21 [Rx Confirmed 04/23/21] pantoprazole 40 mg tablet,delayed release 40 mg PO DAILY #30 tab 04/23/21 [Rx Confirmed 04/23/21] PFSH Medical History Annular tear of lumbar disc Anxiety Arthritis Back pain Carpal tunnel syndrome Chronic constipation Degenerative disc disease Degenerative disc disease at L5-S1 level Diabetes Generalized anxiety disorder with panic attacks H/O breast lump Hypocalcemia Hypocalcemia syndrome Hypoglycemia Hypokalemia Hypothyroidism Pelvic pain Polycystic ovaries Postoperative hypothyroidism Postsurgical hypoparathyroidism Right upper quadrant pain Seasonal allergies Tinea pedis of both feet TMJ (temporomandibular joint syndrome) Upper respiratory infection Vitamin deficiency Surgical History History of partial hysterectomy History of thyroidectomy History of total hysterectomy Family History Father Alcoholism Mother Anemia Depression Hypertension Hyperlipemia Diabetes Grandfather Diabetes Myocardial infarction Grandmother Breast cancer Diabetes Social History Smoking Status: Current every day smoker tobacco type: cigarettes Tobacco: How many years used: 20 alcohol intake: never substance use type: does not use what type of physical activity do you participate in: none HPI HPI HPI: AMY VILLEDA, is a 35 F who presents to the office today for right upper quadrant pain and nausea. It gallbladder removed by Dr. Hsieh however due to COVID that did not happen. Patient states that she COVID also in March to have increased chest pain 11 days into the COVID diagnosis went to the ER cardiac work-up was negative. Patient did have a HIDA scan back in 2018?looking into her MyChart ejection fraction was 86% which is considered normal. Patient's last ultrasound was done in March 2020 which did not show any sludge or gallstones normal gallbladder wall. Patient states 2 weeks she has had constant right upper quadrant pain which ranges from -01/2010. Patient has pretty constant nausea as well denies any vomiting. However patient is unable to eat most food as it makes her nausea and pain worse. Patient is able to drink liquids. Patient denies any reflux symptoms however upon asking further states when she does get the pain bad she sometimes can feel it in the lower [address], but up her esophagus. Patient has bowel movements daily which are mostly diarrhea. Patient did state that recently the right upper quadrant pain changed from being about 30 minutes or an hour after eating to immediately after eating more recently. Patient did see her PCP on Tuesday and a HIDA scan was ordered; however, patient has not been called for scheduling yet. Patient also went to the ER yesterday due to the increased pain labs were normal at that time including LFTs. ROS General General: Yes weight change and fatigue; No appetite, colon cancer or breast cancer HEENT HEENT: No difficulty swallowing, eye injury, eye surgery, swollen glands or hoarseness Endo Endocrine: Yes thyroid disease; No diabetes mellitus, thyroid cancer, Hair loss, heat intolerance or cold intolerance Skin Skin: No rash or changing moles Musc Musculoskeletal: Yes back problems, arthritis, rheumatoid arthritis and gout; No joint pain Cardio Cardiovascular: No murmur, pacemaker, heart disease, atrial fibrillation, high blood pressure, heart attack, heart stent, palpitations, shortness of breat with exertion or chest pain Psych Psychiatric: Yes anxiety; No depression or hearing voices Resp Respiratory: No shortness of breath, No sleep apnea, No cough, No COPD, No asthma, No emphysema and No wheezing Gastro Gastrointestinal: Yes abdominal pain, Yes nausea or vomiting, Yes diarrhea, Yes constipation, No blood in stool, No acid reflux, Yes hemorrhoids, No ulcers, Yes gallbladder problem and No black,tarry stools Alec Hematologic: No blood thinners, No blood disorders, No bleeding, No anemia and No blood clots Neuro Neurologic: No abnormal speech and No confusion Exam Const General: cooperative, healthy appearing, comfortable and no acute distress Neck Neck: normal visual inspection Resp Effort & Inspection: normal respiratory effort Cardio Rate: regular rate GI Inspection: non-distended Palpation: soft, no guarding and tender in the RUQ Skin General: no rashes or lesions noted Neuro General: patient oriented x3 Psych Affect: normal affect Assessment and Plan Assessment and Plan (1) Right upper quadrant pain: Status: Acute (2) Epigastric abdominal pain: Status: Acute Orders: Orders: Gallbladder Today R10.11 Plan - Dr. Tara Rob MD: Was able to see patient's my chart from [facility] and her previous HIDA scan from 2018 showed an ejection fraction of 86% which is considered normal. Last ultrasound of the gallbladder was in Mar 2020 which did not really show any sludge or gallstones. However, patient did have COVID in March and the pain has gotten worse since then. Currently she has an order for HIDA scan but has not been called to schedule. Discussed with patient that we could try getting ultrasound at is that will get approved quicker and if she would have any sludge or stones she would be a candidate for cholecystectomy. If not we would plan to get the HIDA scan to see if the gallbladder issue. In the meantime would suggest patient Protonix as she does admit that currently eating happens immediately eating and it is not no longer 30 minutes to an hour later. Thus this may be due to gastric etiology as well. Patient also states sometimes she gets the right upper quadrant pain she has epigastric pain coming going into the lower chest. To the ER due to chest pain which was worked up and EKG was bradycardia/Normal rhythm. In the event that ultrasound is abnormal or her HIDA scan is abnormal to discuss future of a laparoscopic cholecystectomy with the patient. Reviewed the anatomy with the patient and discussed the procedure: laparoscopic cholecystectomy with possible cholangiograms, possible open. Review risks including but not limited to bleeding, infection, hernia, bile leak, retained gallstones requiring another procedure ERCP- Endoscopic Retrograde Cholangiopancreatography, injury to another organ (bile ducts, common bile duct, small bowel, etc.) and conversion to an open procedure. All questions were answered. Patient no further question this time. Will await ultrasound results. Addendum: The gallbladder ultrasound did show sludge versus nonshadowing stone Tara Rob M.D. Pager: [phone] [facility] [address] [place] [address], [facility], [address] [place] [address] Office: [phone] Plan Details Other Medications: New: pantoprazole 40 mg PO DAILY 30 tabs 2RF famotidine 20 mg PO DAILY 14 tabs 0RF Coding Level of Care Code Off vis,new,level 3 Diagnoses Right upper quadrant pain R10.11 Epigastric abdominal pain R10.13 04/23/21 1003<Electronically signed by Tara Rob MD>Date Tara Rob MD
[2021-04-29] MEDS: Cefotetan 2 GM in 0.9% NS 100 ML IV (14:18)
--- NOTE | 2021-04-29 14:30 | RAD_ITS ---
STUDY: INTRAOPERATIVE CHOLANGIOGRAM. REASON FOR EXAM: Female, 35 years old. PAIN FLUOROSCOPY TIME (if supplied): ( 8.9 seconds ) minutes/seconds a single loop of 45 images was performed. TECHNIQUE: Attempted intraoperative cholangiogram. COMPARISON: None. FINDINGS: Attempted intraoperative cholangiogram. RAD/Cholangiogram/ O R,Initial IMPRESSION: Attempted intraoperative cholangiogram. Electronically Signed: Dimitris Stewart MD at 15:54 EST ,
[2021-04-29] MEDS: Bupivacaine Mpf 0.5% 30 ML VIAL (15:08)
--- NOTE | 2021-04-29 15:18 | PCM.OPRPT ---
Report of Operation Date of Procedure: 04/29/21 Pre-Operative Diagnosis: Cholelithiasis, right upper quadrant pain Post-Operative Diagnosis: Same Surgery/Procedure Performed:: Laparoscopic cholecystectomy Surgeon: Tara Rob boiler coverer helper: Rudolph Garsia Type of Anesthesia: General/Supplemental Anesthesiologist: Kevin Pruett Special Medications: Cefotetan 2 g IV x1 Specimen's removed: Gallbladder Description of Procedure: Indications this is a 35 year-old female who developed abdominal pain/nausea/vomiting and on workup was found to have cholelithiasis, with a normal common bile duct. Laparoscopic cholecystectomy was elected. Description procedure: The patient was placed on operating table in supine position. General Anesthesia was induced. A timeout was completed verifying correct patient, procedure, site, position and special equipment prior to beginning procedure. The abdomen was prepped and draped in usual sterile fashion. An incision was made in the natural skin line above the umbilicus. The fascia was elevated and incised. The peritoneum was elevated and incised. Entry into the peritoneum was confirmed visually and no bowel was noted in the vicinity of the incision. Brandt trocar was placed. The abdomen was insufflated with carbon dioxide to a pressure of 12-15 mmHg. Patient tolerated insufflation well. The laparoscope was then inserted and abdomen inspected. No injuries from initial trocar placement were noted. Additional trochars were then inserted in the following locations 5 mm trocar in the epigastrium and 2 more 5 mm trochars along the right costal margin. The abdomen was inspected no abnormalities were found. The table is placed in reverse Trendelenburg position with the right side up. The adhesions between the gallbladder and omentum were lysed sharply. The dome of the gallbladder was grasped with atraumatic grasper passed through the lateral port and retracted over the dome of the liver. Infundibulum was then grasped with atraumatic grasper through the midclavicular port and retracted to the right lower quadrant. This maneuver exposed Calot's triangle. The peritoneum overlying the gallbladder infundibulum was then incised and cystic duct and artery identified and circumferentially dissected. Alanis catheter was used for attempted cholangiograms a couple times?however contrast extravasated?cholangiograms aborted. The cystic duct and artery were then doubly clipped and divided close to the gallbladder. The gallbladder then dissected from its peritoneal attachments by electrocautery. Hemostasis was checked and the gallbladder and contained stones were removed using the endoscopic retrieval bag through the umbilical port. The gallbladder is passed off table as specimen. The gallbladder fossa was copiously irrigated with saline and hemostasis obtained. There is no evidence of bleeding from the gallbladder fossa or cystic artery leakage of bile from the cystic duct stump. Secondary trochars removed under direct vision. No bleeding was noted the trocar sites. The laparoscope was withdrawn and umbilical trocar removed. The abdomen was allowed to collapse. The fascia of the 12 mm trocar was closed with a [id number] 0 Vicryl suture. The skin was closed with sutures of 4-0 Monocryl and Steri-Strips. The orogastric tube was removed and the patient was extubated. The patient tolerated procedure well and was taken to the postanesthesia care unit in stable condition. Complications none
--- NOTE | 2021-04-29 15:20 | EX.PCM.DISCH ---
Discharge Instructions Diet Discharge Diet: Light diet - advance as tolerated Activity Discharge Activity: May Not Drive (while taking narcotic pain medications.) May shower in (days): 1 Lifting Restrictions: no lifting >20 lbs x 2 wks, no strenuous exercise for 4 wks Dressing / Incision Call your doctor if your incision/area has: Continuous Slow Oozing, Sudden Increased Bleeding, Increased Pain/ Swelling, Increased Redness, Foul Smelling Discharge and Swelling at the incision site Call your doctor if you observe: Fever of 101 or Higher Remove Dressing in: 2 days Cleanse incision/area with: Soap & Water Additional Dressing/Incision Instructions:: Steri-Strips will fall off in 7 to 10 days, if they do not fall off okay to remove after 10 days. Follow Up Care Please Follow Up With: Tara Rob MD When: Call the office for a follow-up appointment 2 weeks; after 5 PM and on the weekends call [phone] with any concerns. Test Results: Test results from this visit will be discussed in further detail at your follow-up appointment, if applicable. Discharge Plan Admission Attending Provider: Tara Rob Primary Care Provider: Levi Kent Discharge Orders/Prescriptions Prescriptions: New hydrocodone-acetaminophen 5-325 mg tablet 1 - 2 tab PO Q6H PRN (Reason: pain) 3 Days Qty: 14 RF: 0 Continued acetaminophen [Tylenol] 325 mg capsule 325 mg PO ONCE PRN (Reason: Pain) RF: 0 meclizine 25 mg tablet 25 mg PO BID PRN (Reason: dizziness) Qty: 20 RF: 0 fluticasone propionate [Flonase Allergy Relief] 50 mcg/actuation spray,suspension 1 spray intranasal BID Qty: 16 RF: 1 zinc 50 mg tablet 25 mg PO BID RF: 0 famotidine 20 mg tablet 20 mg PO DAILY Qty: 14 RF: 0 ondansetron 4 mg tablet,disintegrating 4 mg PO Q6H PRN (Reason: nausea and vomiting) Qty: 14 RF: 0 pantoprazole 40 mg tablet,delayed release (DR/EC) 40 mg PO QHS RF: 0 calcitriol 0.5 mcg capsule 1.5 mcg PO DINNER Qty: 90 RF: 5 tizanidine 4 mg tablet 4 mg PO TID PRN (Reason: muscle spasticity) Qty: 90 RF: 2 levothyroxine 125 mcg tablet 125 mcg PO DAILY Qty: 90 RF: 0 cholecalciferol (vitamin D3) 50 mcg (2,000 unit) capsule 50 mcg PO DAILY Qty: 90 RF: 3 Referrals / Follow Up: Levi Kent MD [Primary Care Provider] - Disposition Disposition (needs filled in before D/C Order can be placed): Home, Self Care
[2021-04-29] MEDS: HYDROcodone Bitartrate/Apap 5/325 Tablet PO (17:15)
== END 2021-04-29 23:59 | disposition home or self-care (01) ==
LOC: SDC 09:29 → AC 09:31
PROVIDERS: PCP Internal Medicine; Referring Provider Surgery; Visit Provider Surgery
PROC: (CPT 47610; principal; 2021-04-29 11:10)
DX: K80.10 Calculus of gallbladder with chronic cholecystitis without obstruction (principal); E11.9 Type 2 diabetes mellitus without complications; F17.210 Nicotine dependence, cigarettes, uncomplicated; E03.9 Hypothyroidism, unspecified; E28.2 Polycystic ovarian syndrome; F41.9 Anxiety disorder, unspecified; Z79.899 Other long term (current) drug therapy; M19.90 Unspecified osteoarthritis, unspecified site; J45.909 Unspecified asthma, uncomplicated; F32.A Depression, unspecified; Z86.16 Personal history of COVID-19
CPT/HCPCS: 47562; 00790; 74300; 76000; 88304; 93005; J7120; J2405

== ENCOUNTER 2021-04-30 08:34 | Emergency (ER) | payer MEDICAID, SELFPAY ==
[2021-04-30 08:35] VITALS: BP 119/77; PULSE 65; RESP 14; TEMP 36.6; O2SAT 100; BMI 26.9
--- NOTE | 2021-04-30 08:46 | EDS_ITS ---
HPI History of Present Illness Chief Complaint: Nausea/Vomiting Detail of Chief Complaint: Nausea and vomiting since yesterday Informant: patient Narrative Narrative: Patient presents to the emergency department complaint of nausea and vomiting since yesterday. Patient has had frequent episodes after having her gallbladder removed yesterday. Patient unable to keep her other meds down. Patient states that she has had a thyroidectomy in typically has a low calcium but has not been able to keep her calcium meds down. She is not complaining of numbness and tingling in her hands and feet and spasms. Patient cannot keep her Zofran down. She denies fevers. She denies other complaints. [facility] Medical History (Updated 04/30/21 @ 10:[address] Katerina Jain, DO) Annular tear of lumbar disc Anxiety Arthritis Asthma Back pain Carpal tunnel syndrome Chest pain Chronic constipation Degenerative disc disease Degenerative disc disease at L5-S1 level Depression Generalized anxiety disorder with panic attacks H/O breast lump Heartburn History of COVID-19 History of palpitations History of steroid therapy Hx of cystic acne Hx of hypoglycemia Hypocalcemia Hypocalcemia syndrome Hypoglycemia Hypokalemia Hypothyroidism Injury of head and neck Leg cramps Pelvic pain Polycystic ovaries Postoperative hypothyroidism Postsurgical hypoparathyroidism Right upper quadrant pain Seasonal allergies Shortness of breath on exertion Smoker Tinea pedis of both feet TMJ (temporomandibular joint syndrome) Upper respiratory infection Vitamin deficiency Wears dentures Home Medications calcitriol 0.5 mcg capsule 1.5 mcg PO DINNER #90 cap 09/25/20 [Rx Last Taken Unknown] acetaminophen 325 mg capsule 325 mg PO ONCE PRN 12/04/20 [History Last Taken Unknown] tizanidine 4 mg tablet 4 mg PO TID PRN #90 tab 12/24/20 [Rx Last Taken Unknown] meclizine 25 mg tablet 25 mg PO BID PRN #20 tab 02/13/21 [Rx Last Taken Unknown] levothyroxine 125 mcg tablet 125 mcg PO DAILY #90 tab 03/23/21 [Rx Last Taken 04/29/21 04:00] cholecalciferol (vitamin D3) 50 mcg (2,000 unit) capsule 50 mcg PO DAILY #90 cap 04/14/21 [Rx Last Taken Unknown] fluticasone propionate 50 mcg/actuation nasal spray,suspension 1 spray INTRANASAL BID #16 g 04/17/21 [Rx Last Taken Unknown] zinc 50 mg tablet 25 mg PO BID 04/21/21 [History Last Taken Unknown] ondansetron 4 mg PO Q6H PRN #14 tab 04/22/21 [Rx Last Taken Unknown] famotidine 20 mg tablet 20 mg PO DAILY #14 tab 04/23/21 [Rx Last Taken Unknown] pantoprazole 40 mg PO QHS 04/28/21 [History Last Taken Unknown] hydrocodone-acetaminophen 1 - 2 tab PO Q6H PRN 3 Days #14 tab 04/29/21 [Rx Last Taken Unknown] Allergy/AdvReac Type Severity Reaction Status Date / Time codeine Allergy can't Verified 04/30/21 08:35 sleep; itching fluoxetine [From Prozac] Allergy causes Verified 04/30/21 08:35 manic state naproxen Allergy nose bleed Verified 04/30/21 08:35 Family History Father Alcoholism Mother Anemia Depression Hypertension Hyperlipemia Diabetes Grandfather Diabetes Myocardial infarction Grandmother Breast cancer Diabetes Surgical History History of partial hysterectomy History of thyroidectomy History of total hysterectomy Social History Smoking Status: Current every day smoker tobacco type: cigarettes Tobacco: How many years used: 20 alcohol intake: never substance use type: does not use what type of physical activity do you participate in: none ROS ROS ED Constitutional Constitutional ED: Reports systems reviewed and no addt'l complaints, except as documented; Denies body ache(s), change in weight or chills Eyes Eyes: Denies acute decrease in peripheral vision, change in vision, double vision or loss of vision ENT ENT ED: Reports none; Denies ear pain, lip swelling, loss taste/smell, neck pain, otalgia or sore throat Cardiovascular Cardiovascular: Reports none; Denies abdominal pain, chest pain with activity, leg edema, lightheadedness, palpitations, rapid heart rate or syncope Respiratory/Chest Respiratory/Chest: Reports none; Denies change in mental status, dry cough, dyspnea, hemoptysis, shortness of breath at rest or shortness of breath with exertion Gastrointestinal Gastrointestinal: Reports none, nausea and vomiting; Denies abdominal pain, change in stool character, diarrhea, hematemesis, hematochezia, melena or rectal bleeding Genitourinary Genitourinary ED: Reports none; Denies abdominal discomfort, anuria, dysuria, genital pain or polyuria Musculoskeletal Musculoskeletal: Reports none; Denies arthralgias, back pain, difficulty walking, extremity pain, muscle weakness or myalgias Integumentary Reports none; Denies abscess or rash Neurologic Neurologic: Reports none and paresthesias; Denies abnormal gait, confusion, focal weakness, frequent falls, headache(s), loss of vision, numbness, radicular pain, vertigo or weakness Psychiatric Psychiatric: Reports systems reviewed and no addt'l complaints, except as documented and none; Denies behavioral changes, confusion, difficulty concentrating, hallucinations, suicidal ideation, tactile hallucinations or visual hallucinations Endocrine Endocrinology: Denies none, cold intolerance, excessive sweating, fatigue or heat intolerance Hematologic/Lymphatic Hematologic/Lymphatic: Reports none; Denies anemia, easy bleeding or easy bruising Allergic/Immunologic Allergic/Immunologic ED: Denies as per HPI, none, lip swelling, mouth swelling, throat swelling, tongue swelling or hives EXAM Physical Exam Const Vital Signs: 04/30/21 08:35 Temperature 97.8 F Temperature Source Temporal Pulse Rate 65 Respiratory Rate 14 Blood Pressure 119/77 Blood Pressure Mean 91 Pulse Ox 100 Oxygen Delivery Method Room Air Positive well nourished and well developed General Appearance ED: well developed and NAD HEENT Reports TM's clear and moist mucous membranes normocephalic and atraumatic; Negative for trauma or tenderness Tympanic Membrane ED: Yes TM's clear Eyes PERRL and EOMs intact bilaterally General Eye ED: Negative for pale conjunctiva or scleral icterus Neck no lymphadenopathy, supple and no JVD General: Negative for tenderness Chest Wall inspection of chest normal and palpation of chest normal Chest: Negative for tenderness Resp normal respiratory effort and clear to auscultation bilaterally Effort and Inspection: Negative for respiratory distress or pain with movement Auscultation: Negative for rhonchi, wheezes or diminished lung sounds Cardio regular rate, regular rhythm, S1 normal heart sound, S2 normal heart sound and no murmurs Peripheral Pulses: pulses 2+ throughout GI soft to palpation, non-tender, non-distended and no masses GI Narrative: Patient with some mild diffuse tenderness on exam of the abdomen. Her port incision sites look normal without evidence of drainage or cellulitis. Back/Spine no CVA tenderness and no thoracic nor lumbar tenderness Extremity normal to inspection General Extremety ED: Negative for edema General Extremity: Negative for edema Neuro oriented x3, CN's II-XII intact bilaterally, no sensory deficits noted and gait normal Sensorium / Orientation: awake, alert, oriented to person, oriented to place and oriented to time Motor Exam: strength 5/5 throughout and strength abnormal Psych mental status grossly normal Skin no rashes or lesions noted and no wounds MDM MDM MDM Narrative Medical decision making narrative: IV line established on arrival. Patient was given a liter normal same fluid bolus. Patient was given Zofran 4 mg IV. She was noted to have a low calcium and I did give her calcium chloride 1 g IV. Patient felt markedly improved after treatment with fluids and antiemetics and calcium. I did discuss case with general surgeon on-call Dr. Av Turner. Patient was given a p.o. challenge and was able to tolerate crackers and water and she had no further vomiting. At this point she would like to try to go home which I feel is reasonable. Patient advised to return if persistent vomiting, fever, or condition should worsen anyway. Lab Data Attestation: I reviewed the patient's lab results. Labs: Laboratory Results - last 24 hr 04/30/21 04/30/21 09:00 09:00 WBC 13.4 H RBC 4.27 Hgb 12.8 Hct 37.4 MCV 87.6 MCH 30.0 MCHC 34.2 RDW Std Deviation 39.5 RDW Coeff of Jenn 12.2 Plt Count 306 MPV 11.9 Immature Gran % (Auto) 0.300 Neut % (Auto) 77.8 H Lymph % (Auto) 14.4 L Lawrence % (Auto) 7.4 Eos % (Auto) 0.0 Baso % (Auto) 0.1 Absolute Neuts (auto) 10.5 H Absolute Lymphs (auto) 1.94 Nucleated RBC % 0 Sodium 136 Potassium 3.8 Chloride 103 Carbon Dioxide 25.0 Anion Gap 8 BUN 15 Creatinine 0.94 Estim Creat Clear Calc 88.61 Est GFR (MDRD) Af Amer 86 Est GFR (MDRD) Non-Af 71 BUN/Creatinine Ratio 15.9 Glucose 116 H Calcium 8.1 L Magnesium 1.9 Total Bilirubin 0.60 AST 16 ALT 24 Alkaline Phosphatase 40 L Total Protein 7.1 Albumin 3.7 Globulin 3.4 Albumin/Globulin Ratio 1.1 Lipase 55 L Discharge Plan Triage Chief Complaint: Nausea/Vomiting ED Provider: Katerina Jain Dx/Rx/DC Orders Clinical Impression: Vomiting, Hypocalcemia Instructions: ED Vomiting (Adult), ED Hypocalcemia (Adult) Prescriptions: No Action acetaminophen [Tylenol] 325 mg capsule 325 mg PO ONCE PRN (Reason: Pain) RF: 0 meclizine 25 mg tablet 25 mg PO BID PRN (Reason: dizziness) Qty: 20 RF: 0 fluticasone propionate [Flonase Allergy Relief] 50 mcg/actuation spray,suspension 1 spray intranasal BID Qty: 16 RF: 1 zinc 50 mg tablet 25 mg PO BID RF: 0 famotidine 20 mg tablet 20 mg PO DAILY Qty: 14 RF: 0 ondansetron 4 mg tablet,disintegrating 4 mg PO Q6H PRN (Reason: nausea and vomiting) Qty: 14 RF: 0 pantoprazole 40 mg tablet,delayed release (DR/EC) 40 mg PO QHS RF: 0 hydrocodone-acetaminophen 5-325 mg tablet 1 - 2 tab PO Q6H PRN (Reason: pain) 3 Days Qty: 14 RF: 0 calcitriol 0.5 mcg capsule 1.5 mcg PO DINNER Qty: 90 RF: 5 tizanidine 4 mg tablet 4 mg PO TID PRN (Reason: muscle spasticity) Qty: 90 RF: 2 levothyroxine 125 mcg tablet 125 mcg PO DAILY Qty: 90 RF: 0 cholecalciferol (vitamin D3) 50 mcg (2,000 unit) capsule 50 mcg PO DAILY Qty: 90 RF: 3 Primary Care Provider: Levi Kent Referrals: Levi Kent MD [Primary Care Provider] - Tara Rob MD [STAFF PHYSICIAN] - Keep Jennifer appointment Disposition Disposition: Home, Self Care
[2021-04-30] MEDS: 0.9% Normal Saline 1,000 ML 1000 ML IV (09:02)
[2021-04-30] MEDS: Ondansetron 4 MG/2 ML Vial IV (09:02)
[2021-04-30 09:15] LABS: Absolute Lymphocyte Count 1.94 X10^3/uL (0.83-4.51); Absolute Neutrophil Count 10.5 X10^3/uL (2.0-7.7); Basophil# 0.01 X10^3/uL; Basophil% 0.1 % (0-1); Hematocrit 37.4 % (37-47); Hemoglobin 12.8 g/dL (12.0-15.0); Lymphocyte # 1.94 X10^3/ul (0.83-4.51); Lymphocyte % 14.4 % (19-41); Mean Corp Hgb Conc 34.2 g/dL (32-36); Mean Corpuscular Volume 87.6 fL (81-99); Mean Platelet Vol. 11.9 fl (6.2-12.0); Monocyte% 7.4 % (0-10); NRBC Flagged by Analyzer 0 % (0-5); Neutrophil # 10.45 X10^3/uL (2.7-7.7); Neutrophil % 77.8 % (47-70); Platelet Count 306 K/mm3 (150-450); RBC Distribution Width CV 12.2 % (11.6-14.6); RBC Distribution Width SD 39.5 fl (35.1-43.9); Red Blood Count 4.27 M/mm3 (4.2-5.4); White Blood Count 13.4 K/mm3 (4.4-11.0)
[2021-04-30 09:35] LABS: ALB/GLOB Ratio 1.1 RATIO (0.9-2.4); AST(SGOT) 16 U/L (15-37); Alanine Aminotransfer ALT/SGPT 24 U/L (13-56); Albumin, Serum 3.7 g/dL (3.2-5.0); Alkaline Phosphatase 40 U/L (45-117); Anion Gap 8 (5-15); BUN 15 mg/dL (7-18); BUN/Creat Ratio 15.9 RATIO (10-20); Calcium,Total 8.1 mg/dL (8.5-10.1); Chloride 103 mmol/L (98-107); Creatinine, Serum 0.94 mg/dL (0.55-1.02); EST Glomerular Filtration Rate 71 mL/min (>60); Est Glom Filt Rate - Afr Amer 86 mL/min (>60); Estimated Creatinine Clearance 88.61 ml/min; Globulin 3.4 g/dL (2.2-4.2); Glucose 116 mg/dL (74-106); Lipase 55 U/L (73-393); Magnesium 1.9 mg/dL (1.6-2.6); Potassium 3.8 mmol/L (3.5-5.1); Protein, Total 7.1 g/dL (6.4-8.2); Sodium Level 136 mmol/L (136-145)
[2021-04-30] MEDS: Calcium Chloride 1 GM/10 ML Syringe IV (09:49)
[2021-04-30 10:38] VITALS: BP 108/67; PULSE 71; RESP 15; O2SAT 98
== END 2021-04-30 10:39 | disposition home or self-care (01) ==
PROVIDERS: Emergency Provider Emergency Medicine; PCP Internal Medicine; Visit Provider Emergency Medicine
DX: R11.2 Nausea with vomiting, unspecified (principal); E83.51 Hypocalcemia; F17.210 Nicotine dependence, cigarettes, uncomplicated; E03.9 Hypothyroidism, unspecified; Z79.899 Other long term (current) drug therapy
CPT/HCPCS: 80053; 83690; 83735; 85025; 96361; 96374; 96375; 99283; J7030; J2405

== ENCOUNTER 2021-05-08 09:32 | Emergency (ER) | payer MEDICAID, SELFPAY ==
[2021-05-08 09:33] VITALS: BP 131/90; PULSE 90; RESP 18; TEMP 36.4; O2SAT 100; BMI 27.8
--- NOTE | 2021-05-08 09:56 | CT_ITS ---
STUDY: CT ABDOMEN AND PELVIS WITH CONTRAST REASON FOR EXAM: Female, 35 years old. Post Surgical Pain. Recent cholecystectomy. Upper abdominal pain. RADIATION DOSAGE (If Supplied By Facility): CTDIvol = ( 15.62 ) mGy, DLP = ( 965.83 ) mGycm TECHNIQUE: Transaxial images were obtained from the dome of the diaphragm to the symphysis pubis without oral contrast. IV 100mL Isovue-370 was administered. Sagittal and coronal images were reconstructed. Individualized dose optimization techniques were used for this CT. COMPARISON: Comparison is made with prior examination dated 01/21/2021. FINDINGS: The visualized lung bases are unremarkable. The visualized portions of the heart are within normal limits. Normal liver. The patient is status post cholecystectomy. Normal spleen. Normal pancreas. Normal bilateral adrenal glands. Normal right kidney. Normal left kidney. Normal visualized stomach. Normal small intestine. There are scattered colonic diverticula consistent with diverticulosis. The appendix is visualized and appears normal. Normal abdominal aorta. Normal inferior vena cava. Normal retroperitoneum. Normal urinary bladder. There is absence of the uterus consistent with a prior hysterectomy. A small amount of free fluid is seen in the right side of the cul-de-sac. This is unchanged. Normal abdominal wall. There are degenerative changes of the visualized lumbar spine. CT/Abdomen/Pelvis W IV Cont ONLY IMPRESSION: Status post cholecystectomy. Status post hysterectomy. Small amount of free fluid is seen in the right cul-de-sac. This is unchanged. Electronically Signed: Dimitris Stewart MD at 11:40 EST ,
--- NOTE | 2021-05-08 09:56 | EKG12_ITS ---
Test Reason : CHEST OTHER Blood Pressure : / mmHG Vent. Rate : 073 BPM Atrial Rate : 073 BPM P-R Int : 146 ms QRS Dur : 082 ms QT Int : 404 ms P-R-T Axes : 073 057 056 degrees QTc Int : 445 ms Normal sinus rhythm with sinus arrhythmia Normal ECG Confirmed by PAT BONNER, KIRIT ([id number]), video news editor CELIA BYRD ([id number]) on 05/11/2021 10:48:27 AM Referred By: REBEKA Confirmed By:KIRIT STEWART MD
--- NOTE | 2021-05-08 09:57 | EX.ED.DYSGE1 ---
HPI History of Present Illness Chief Complaint: Chest Other Narrative Narrative: Patient presents with right upper quadrant abdominal pain and rib pain since 6-6 30 this morning, approximately 3 to 4 hours ago. Of significance, she states she had a cholecystectomy performed by Dr. Rob last week. This was performed laparoscopically. She was doing okay, but she felt a pop in her right lateral rib area and now has pain that radiates downward. She has right upper quadrant burning and pain radiating down her abdomen, and it goes up under her breast also. She denies any fevers or chills. No cough. No nausea or vomiting. No other symptoms. She complains of pain that is unbearable even after a Vicodin that she took at 7:00 this morning. She states that her surgeon is in surgery all day and is unable to evaluate her so she was told to come to the emergency department. [facility] Medical History Annular tear of lumbar disc Anxiety Arthritis Asthma Back pain Carpal tunnel syndrome Chest pain Chronic constipation Degenerative disc disease Degenerative disc disease at L5-S1 level Depression Generalized anxiety disorder with panic attacks H/O breast lump Heartburn History of COVID-19 History of palpitations History of steroid therapy Hx of cystic acne Hx of hypoglycemia Hypocalcemia Hypocalcemia syndrome Hypoglycemia Hypokalemia Hypothyroidism Injury of head and neck Leg cramps Pelvic pain Polycystic ovaries Postoperative hypothyroidism Postsurgical hypoparathyroidism Right upper quadrant pain Seasonal allergies Shortness of breath on exertion Smoker Tinea pedis of both feet TMJ (temporomandibular joint syndrome) Upper respiratory infection Vitamin deficiency Wears dentures Home Medications calcitriol 0.5 mcg capsule 1.5 mcg PO DINNER #90 cap 09/25/20 [Rx Last Taken Unknown] acetaminophen 325 mg capsule 325 mg PO ONCE PRN 12/04/20 [History Last Taken Unknown] tizanidine 4 mg tablet 4 mg PO TID PRN #90 tab 12/24/20 [Rx Last Taken Unknown] meclizine 25 mg tablet 25 mg PO BID PRN #20 tab 02/13/21 [Rx Last Taken Unknown] levothyroxine 125 mcg tablet 125 mcg PO DAILY #90 tab 03/23/21 [Rx Last Taken 04/29/21 04:00] cholecalciferol (vitamin D3) 50 mcg (2,000 unit) capsule 50 mcg PO DAILY #90 cap 04/14/21 [Rx Last Taken Unknown] fluticasone propionate 50 mcg/actuation nasal spray,suspension 1 spray INTRANASAL BID #16 g 04/17/21 [Rx Last Taken Unknown] zinc 50 mg tablet 25 mg PO BID 04/21/21 [History Last Taken Unknown] ondansetron 4 mg PO Q6H PRN #14 tab 04/22/21 [Rx Last Taken Unknown] famotidine 20 mg tablet 20 mg PO DAILY #14 tab 04/23/21 [Rx Last Taken Unknown] pantoprazole 40 mg PO QHS 04/28/21 [History Last Taken Unknown] Allergy/AdvReac Type Severity Reaction Status Date / Time codeine Allergy can't Verified 05/08/21 09:35 sleep; itching fluoxetine [From Prozac] Allergy causes Verified 05/08/21 09:35 manic state naproxen Allergy nose bleed Verified 05/08/21 09:35 Family History Father Alcoholism Mother Anemia Depression Hypertension Hyperlipemia Diabetes Grandfather Diabetes Myocardial infarction Grandmother Breast cancer Diabetes Surgical History History of cholecystectomy History of partial hysterectomy History of thyroidectomy History of total hysterectomy Social History Smoking Status: Current every day smoker tobacco type: cigarettes Tobacco: How many years used: 20 alcohol intake: never substance use type: does not use what type of physical activity do you participate in: none ROS ROS ED ROS Narrative Constitutional: No fever, no chills. HEENT: No sore throat. No neck pain. No loss of vision. No rhinorrhea. Cardiovascular: Right-sided chest pain where her gallbladder used to be. No palpitations. No pedal edema. Respiratory: No cough, no shortness of breath. Abdominal: Right upper quadrant abdominal pain. No nausea. No vomiting. Genitourinary: No dysuria. No hematuria. Musculoskeletal: No myalgias. No arthralgias. Neurologic: No headaches. No dizziness. No lightheadedness. Skin: No rash. No change in color. Psychiatric: No depression. No anxiety. EXAM Physical Exam Narrative Exam Narrative: Afebrile. Vital signs noted. HEENT: Normocephalic. Atraumatic. PERRL, EOMI. Neck soft and supple. No point tenderness or step off. Cardiovascular: Regular rate and rhythm. No murmurs, rubs, or gallops appreciated. Respiratory: No tachypnea. Lungs clear to auscultation bilaterally. Gastrointestinal: Abdomen soft, tenderness to palpation in right upper quadrant and over right rib #10 without crepitance, with normoactive bowel sounds. No rebound or guarding. Neurological: Awake. Alert. Nonfocal, nonlateralizing. Skin: No rash. Normal color. No pallor. Incisions clean, dry, and intact with Steri-Strips Musculoskeletal: No pedal edema. Full range of motion extremities. Const Vital Signs: 05/08/21 09:33 05/08/21 10:10 05/08/21 11:37 Temperature 97.6 F L Temperature Source Temporal Pulse Rate 90 66 Respiratory Rate 18 16 Respiratory Effort Normal Non-Labored Respiratory Pattern Normal Blood Pressure 131/90 H 104/63 Blood Pressure Mean 103 76 Pulse Ox 100 100 Oxygen Delivery Method Room Air Room Air MDM MDM MDM Narrative Medical decision making narrative: Comprehensive work-up was pursued. I will obtain a CT of the abdomen and pelvis with IV contrast and basic laboratory work. I do not feel that this is related to a retained stone, but given her recent surgery and continued pain and burning in the right upper quadrant imaging will be obtained. She was administered morphine for analgesia. She was also given Zofran for nausea. She has normal white count of 8.9, hemoglobin normal at 14.5. Electrolyte panel is grossly unremarkable with a normal lipase. Troponin is negative at 3. EKG shows normal sinus rhythm with a sinus arrhythmia at 73 bpm without other ectopy or acute ST changes. CT of the abdomen pelvis shows no acute process. At this point in time, upon repeat examination she feels mildly improved. I discussed patient with Dr. Turner for Dr. Rob who agrees with outpatient follow-up. She has an appointment next Tuesday. She will take [id number] medications as needed and apply ice to the affected area. Return instructions were reviewed. Disposition is discharged home in stable condition. Lab Data Attestation: I reviewed the patient's lab results. Labs: Laboratory Results - last 24 hr 05/08/21 05/08/21 10:25 10:25 WBC 8.9 RBC 4.92 Hgb 14.5 Hct 43.3 MCV 88.0 MCH 29.5 MCHC 33.5 RDW Std Deviation 40.7 RDW Coeff of Jenn 12.5 Plt Count 313 MPV 11.4 Immature Gran % (Auto) 0.100 Neut % (Auto) 58.9 Lymph % (Auto) 30.6 Blount % (Auto) 7.9 Eos % (Auto) 1.6 Baso % (Auto) 0.9 Absolute Neuts (auto) 5.3 Absolute Lymphs (auto) 2.74 Nucleated RBC % 0 Sodium 138 Potassium 3.7 Chloride 106 Carbon Dioxide 25.0 Anion Gap 7 BUN 15 Creatinine 0.82 Estim Creat Clear Calc 101.58 Est GFR (MDRD) Af Amer 100 Est GFR (MDRD) Non-Af 83 BUN/Creatinine Ratio 18.2 Glucose 94 Calcium 8.5 Total Bilirubin 0.40 AST 7 L ALT 30 Alkaline Phosphatase 49 Troponin I High Sens 3 Total Protein 7.6 Albumin 3.8 Globulin 3.8 Albumin/Globulin Ratio 1.0 Lipase 76 Radiography Diagnostic Testing: Clinical Impression(s) from Imaging Studies Abdomen/Pelvis CT 05/08/21 09:56 IMPRESSION: Status post cholecystectomy. Status post hysterectomy. Small amount of free fluid is seen in the right cul-de-sac. This is unchanged. Electronically Signed: Dimitris Stewart MD at 11:40 EST Reading Location ID and State: [address] [place] [address] , Service support , Discharge Plan Triage Chief Complaint: Chest Other ED Provider: Varun Tinoco Dx/Rx/DC Orders Clinical Impression: Postoperative abdominal pain, Chest pain Instructions: ED Abdominal Pain Unkn Cause Fem, ED Chest Pain, Uncertain Cause Prescriptions: No Action acetaminophen [Tylenol] 325 mg capsule 325 mg PO ONCE PRN (Reason: Pain) RF: 0 meclizine 25 mg tablet 25 mg PO BID PRN (Reason: dizziness) Qty: 20 RF: 0 fluticasone propionate [Flonase Allergy Relief] 50 mcg/actuation spray,suspension 1 spray intranasal BID Qty: 16 RF: 1 zinc 50 mg tablet 25 mg PO BID RF: 0 famotidine 20 mg tablet 20 mg PO DAILY Qty: 14 RF: 0 ondansetron 4 mg tablet,disintegrating 4 mg PO Q6H PRN (Reason: nausea and vomiting) Qty: 14 RF: 0 pantoprazole 40 mg tablet,delayed release (DR/EC) 40 mg PO QHS RF: 0 calcitriol 0.5 mcg capsule 1.5 mcg PO DINNER Qty: 90 RF: 5 tizanidine 4 mg tablet 4 mg PO TID PRN (Reason: muscle spasticity) Qty: 90 RF: 2 levothyroxine 125 mcg tablet 125 mcg PO DAILY Qty: 90 RF: 0 cholecalciferol (vitamin D3) 50 mcg (2,000 unit) capsule 50 mcg PO DAILY Qty: 90 RF: 3 Primary Care Provider: Levi Kent Referrals: Levi Kent MD [Primary Care Provider] - Tara Rob MD [STAFF PHYSICIAN] - 05/12/21 Disposition Disposition: Home, Self Care
[2021-05-08] MEDS: Morphine 4 MG/ML Syringe IV (10:24)
[2021-05-08] MEDS: Ondansetron 4 MG/2 ML Vial IV (10:35)
[2021-05-08 10:41] LABS: Absolute Lymphocyte Count 2.74 X10^3/uL (0.83-4.51); Absolute Neutrophil Count 5.3 X10^3/uL (2.0-7.7); Basophil# 0.08 X10^3/uL; Basophil% 0.9 % (0-1); Eosinophil# 0.14 X10^3/uL; Eosinophils% 1.6 % (0-5); Hematocrit 43.3 % (37-47); Hemoglobin 14.5 g/dL (12.0-15.0); Lymphocyte # 2.74 X10^3/ul (0.83-4.51); Lymphocyte % 30.6 % (19-41); Mean Corp Hgb Conc 33.5 g/dL (32-36); Mean Corpuscular Hgb 29.5 pg (27.0-32.0); Mean Platelet Vol. 11.4 fl (6.2-12.0); Monocyte# 0.71 X10^3/uL; Monocyte% 7.9 % (0-10); NRBC Flagged by Analyzer 0 % (0-5); Neutrophil # 5.26 X10^3/uL (2.7-7.7); Neutrophil % 58.9 % (47-70); Platelet Count 313 K/mm3 (150-450); RBC Distribution Width CV 12.5 % (11.6-14.6); RBC Distribution Width SD 40.7 fl (35.1-43.9); Red Blood Count 4.92 M/mm3 (4.2-5.4); White Blood Count 8.9 K/mm3 (4.4-11.0)
[2021-05-08 10:58] LABS: AST(SGOT) 7 U/L (15-37); Alanine Aminotransfer ALT/SGPT 30 U/L (13-56); Albumin, Serum 3.8 g/dL (3.2-5.0); Alkaline Phosphatase 49 U/L (45-117); Anion Gap 7 (5-15); BUN 15 mg/dL (7-18); BUN/Creat Ratio 18.2 RATIO (10-20); Calcium,Total 8.5 mg/dL (8.5-10.1); Chloride 106 mmol/L (98-107); Creatinine, Serum 0.82 mg/dL (0.55-1.02); EST Glomerular Filtration Rate 83 mL/min (>60); Est Glom Filt Rate - Afr Amer 100 mL/min (>60); Estimated Creatinine Clearance 101.58 ml/min; Globulin 3.8 g/dL (2.2-4.2); Glucose 94 mg/dL (74-106); Lipase 76 U/L (73-393); Potassium 3.7 mmol/L (3.5-5.1); Protein, Total 7.6 g/dL (6.4-8.2); Sodium Level 138 mmol/L (136-145); Troponin-I HS 3 pg/mL (3.0-54.0)
[2021-05-08 11:37] VITALS: BP 104/63; PULSE 66; RESP 16; O2SAT 100
== END 2021-05-08 12:13 | disposition home or self-care (01) ==
PROVIDERS: Emergency Provider Emergency Medicine; PCP Internal Medicine; Visit Provider Emergency Medicine
DX: R10.11 Right upper quadrant pain (principal); G89.18 Other acute postprocedural pain; F17.210 Nicotine dependence, cigarettes, uncomplicated; E03.9 Hypothyroidism, unspecified; Z79.899 Other long term (current) drug therapy; Z86.16 Personal history of COVID-19
CPT/HCPCS: 74177; 80053; 83690; 84484; 85025; 93005; 96374; 96375; 99285; Q9967; A4216; J2405

== ENCOUNTER 2021-06-12 11:27 | Outpatient (CLI) | payer MEDICAID, SELFPAY ==
[2021-06-12 15:08] LABS: Calcium,Total 9.3 mg/dL (8.5-10.1); T4 Free Direct 1.17 ng/dL (0.76-1.46); Thyroid Stim Hormone (TSH) 2.12 uIU/mL (0.358-3.74)
== END 2021-06-12 23:59 | disposition home or self-care (01) ==
PROVIDERS: PCP Internal Medicine; Referring Provider Internal Medicine Endocrinology, Diabetes & Metabolism; Visit Provider Internal Medicine Endocrinology, Diabetes & Metabolism
DX: E03.9 Hypothyroidism, unspecified (principal); E89.2 Postprocedural hypoparathyroidism
CPT/HCPCS: 36415; 82310; 84439; 84443

== ENCOUNTER 2021-06-16 09:36 | Outpatient (CLI) | payer MEDICAID, SELFPAY ==
[2021-06-16 10:23] LABS: Erythrocyte Sedimentation Rate 5 mm/hr (0-30)
[2021-06-16 10:43] LABS: CRP < 2.90 mg/L (0.0-3.0)
[2021-06-17 12:09] LABS: Anti-Centromere B Ab <0.2 AI (0.0-0.9); Anti-Chromatin <0.2 AI (0.0-0.9); Anti-Jo <0.2 AI (0.0-0.9); Anti-Scleroderma-70 AB <0.2 AI (0.0-0.9); RNP Ab <0.2 AI (0.0-0.9); SJOGREN'S Anti-SS-A test < 0.2 AI (0.0-0.9); SJOGREN'S Anti-SS-B test < 0.2 AI (0.0-0.9); Smith Ab <0.2 AI (0.0-0.9)
[2021-06-17 13:19] LABS: Anti-dsDNA Ab 1 IU/mL (0-9)
== END 2021-06-16 23:59 | disposition home or self-care (01) ==
LOC: LAB 09:42
PROVIDERS: PCP Internal Medicine; Visit Provider Nurse Practitioner Adult Health
DX: R19.8 Other specified symptoms and signs involving the digestive system and abdomen (principal); R63.4 Abnormal weight loss; R10.9 Unspecified abdominal pain
CPT/HCPCS: 36415; 85652; 86140; 86225; 86235

== ENCOUNTER 2021-06-26 08:52 | Outpatient (CLI) | payer MEDICAID, SELFPAY | END 2021-06-26 23:59 | disposition home or self-care (01) | LOC: PSN 08:53 | PROVIDERS: PCP Internal Medicine; Visit Provider Internal Medicine Cardiovascular Disease | DX: R00.2 Palpitations (principal); R07.9 Chest pain, unspecified | CPT/HCPCS: 93225; 93226 ==

== ENCOUNTER 2021-06-29 06:17 | Emergency (ER) | payer MEDICAID, SELFPAY ==
[2021-06-29 06:20] VITALS: BP 127/85; PULSE 74; RESP 16; TEMP 36.6; O2SAT 98; BMI 26.5
--- NOTE | 2021-06-29 06:38 | CT_ITS ---
STUDY: CT ABDOMEN AND PELVIS WITHOUT CONTRAST REASON FOR EXAM: Female, 35 years old. Kidney Stone RADIATION DOSAGE (If Supplied By Facility): CTDIvol = ( 8.49 ) mGy, DLP = ( 424.44 ) mGycm TECHNIQUE: Transaxial images were obtained from the dome of the diaphragm to the symphysis pubis without oral contrast, and without intravenous contrast. Sagittal and coronal images were reconstructed. Individualized dose optimization techniques were used for this CT. COMPARISON: None. FINDINGS: The visualized lung bases are unremarkable. The visualized portions of the heart are within normal limits. Normal liver. Normal gallbladder and extrahepatic biliary system. Normal spleen. Normal pancreas. Normal bilateral adrenal glands. There is hydronephrosis involving the right kidney and there is a 4 mm stone at the right side of the urinary bladder.. Normal left kidney. Normal visualized stomach. Normal small intestine. Normal colon. The appendix is visualized and appears normal. Normal abdominal aorta. Normal inferior vena cava. Normal retroperitoneum. Normal urinary bladder. Normal abdominal wall. Normal osseous structures. CT/Abdomen/Pelvis without Cont IMPRESSION: There is right hydronephrosis with a 4 mm calculus at the floor of the bladder. Electronically Signed: Aydin Gallagher MD at 7:32 EDT ,
--- NOTE | 2021-06-29 06:38 | EDS_ITS ---
HPI History of Present Illness Chief Complaint: Complaint Informant: patient Narrative Narrative: Is a 35-year-old female presenting with worsening right flank pain. Patient states last week she was having some urgency and mild discomfort. She went to [facility] urgent care where they did a urinalysis. They thought she possibly had a UTI and she started on Bactrim. Her culture came back negative. Around 4 AM this morning she developed severe right flank pain. She also has pain rating to her abdomen. Denies any groin pain. Continues to have urgency. Did have some blood with wiping but is not sure if it was hematuria. Does have a history of ruptured ovarian cyst but states this feels different. Denies any history of kidney stones. Did take Tylenol prior to arrival with no relief of her symptoms. Has associated nausea and vomiting. No other complaints at this time. [facility] Medical History (Updated 06/29/21 @ 08:[address] Kalpana Hartmann, DO) Abdominal pain Abnormal urinalysis Annular tear of lumbar disc Anxiety Arthritis Asthma Back pain Carpal tunnel syndrome Chronic constipation Chronic pain Degenerative disc disease Degenerative disc disease at L5-S1 level Depression Diarrhea Generalized anxiety disorder with panic attacks H/O breast lump Heartburn History of COVID-19 History of steroid therapy Hx of cystic acne Hx of hypoglycemia Hypocalcemia Hypocalcemia syndrome Hypoglycemia Hypokalemia Hypothyroidism Injury of head and neck Irregular heart beat Leg cramps Pelvic pain Polycystic ovaries Post-surgical hypoparathyroidism Postoperative hypothyroidism Postsurgical hypoparathyroidism Seasonal allergies Shortness of breath on exertion Smoker Tinea pedis of both feet TMJ (temporomandibular joint syndrome) Upper respiratory infection Vertigo Vitamin deficiency Wears dentures Home Medications acetaminophen 325 mg capsule 325 mg PO ONCE PRN 12/04/20 [History Last Taken Unknown] tizanidine 4 mg tablet 4 mg PO TID PRN #90 tab 12/24/20 [Rx Last Taken Unknown] meclizine 25 mg tablet 25 mg PO BID PRN #20 tab 02/13/21 [Rx Last Taken Unknown] cholecalciferol (vitamin D3) 50 mcg (2,000 unit) capsule 50 mcg PO DAILY #90 cap 04/14/21 [Rx Last Taken Unknown] fluticasone propionate 50 mcg/actuation nasal spray,suspension 1 spray INTRANASAL BID #16 g 04/17/21 [Rx Last Taken Unknown] hydrocortisone 1 % topical cream 1 applic TOPICAL TID PRN 06/05/21 [History Last Taken Unknown] calcitriol 0.5 mcg capsule 1.5 mcg PO DINNER #90 cap 06/14/21 [Rx Last Taken Unknown] levothyroxine 125 mcg tablet 125 mcg PO DAILY #90 tab 06/14/21 [Rx Last Taken Unknown] hydrocodone-acetaminophen 1 tab PO Q6H PRN 2 Days #6 tab 06/29/21 [Rx Last Taken Unknown] ondansetron 4 mg PO Q6H PRN #10 tab 06/29/21 [Rx Last Taken Unknown] Allergy/AdvReac Type Severity Reaction Status Date / Time codeine Allergy can't Verified 06/17/21 12:28 sleep; itching fluoxetine [From Prozac] Allergy causes Verified 06/17/21 12:28 manic state naproxen Allergy nose bleed Verified 06/17/21 12:28 Family History Father Alcoholism Mother Anemia Depression Hypertension Hyperlipemia Diabetes Grandfather Diabetes Myocardial infarction Grandmother Breast cancer Diabetes Surgical History (Updated 06/29/21 @ 06:44 by Marian Beltran) H/O thyroidectomy History of cholecystectomy History of cholecystectomy History of partial hysterectomy History of thyroidectomy History of total hysterectomy Social History Smoking Status: Current every day smoker tobacco type: cigarettes Tobacco: How many years used: 20 alcohol intake: never substance use type: does not use what type of physical activity do you participate in: none ROS ROS ED Constitutional Constitutional ED: Reports sweats; Denies chills or fever(s) Eyes Eyes: Denies change in vision ENT ENT ED: Denies sore throat Cardiovascular Cardiovascular: Denies chest pain Respiratory/Chest Respiratory/Chest: Denies dyspnea Gastrointestinal Gastrointestinal: Reports abdominal pain, nausea and vomiting; Denies diarrhea Genitourinary Genitourinary ED: Reports other Details: Urgency ; Denies dysuria or hematuria Musculoskeletal Musculoskeletal: Reports back pain; Denies arthralgias or myalgias Integumentary Denies rash Neurologic Neurologic: Denies headache(s), paresthesias or weakness EXAM Physical Exam Const Vital Signs: 06/29/21 06:20 Temperature 97.9 F Temperature Source Oral Pulse Rate 74 Respiratory Rate 16 Blood Pressure 127/85 H Blood Pressure Mean 99 Pulse Ox 98 Oxygen Delivery Method Room Air Positive well nourished and well developed Constitutional Narrative: Mild distress secondary to pain General Appearance ED: well developed HEENT Reports moist mucous membranes HEENT Narrative: Edentulous Negative for trauma Eyes PERRL and EOMs intact bilaterally Neck supple Chest Wall inspection of chest normal Cardio regular rate, regular rhythm and no murmurs GI normal to inspection, nondistended, normoactive bowel sounds, non-tender and non-distended Palpation: soft Back/Spine General Back: CVA tenderness right Extremity normal to inspection General Extremety ED: Negative for edema or tenderness General Extremity: Negative for edema Neuro oriented x3 Sensorium / Orientation: alert Motor Exam: Negative for general weakness Psych mental status grossly normal Skin no rashes or lesions noted and no wounds MDM MDM MDM Narrative Medical decision making narrative: Patient evaluated for sudden onset of right flank pain. She did have some urinary symptoms earlier in the week but had a negative urine culture per the patient's report. This was all done through [facility]. Patient appears quite uncomfortable upon arrival. She is given IV morphine, Zofran, Toradol and fluids. Differential includes muscle skeletal pain, renal colic and pyelonephritis. Patient's lab work is largely unremarkable. CT does show a 4 mm stone in the bladder floor consistent with a recently passed kidney stone as well as right hydronephrosis. On repeat evaluation she still has pain but is significantly improved. Will be discharged home with short course of pain medicine and a referral for urology for outpatient follow-up. Patient is counseled on return precautions. She verbalized agreement and understands plan. Discharged home in stable condition peer Lab Data Labs: Laboratory Results - last 24 hr 06/29/21 06/29/21 06/29/21 06:45 06:45 06:45 WBC 11.1 H RBC 4.79 Hgb 14.6 Hct 41.4 MCV 86.4 MCH 30.5 MCHC 35.3 RDW Std Deviation 38.6 RDW Coeff of Jenn 12.1 Plt Count 338 MPV 11.2 Immature Gran % (Auto) 0.200 Neut % (Auto) 55.2 Lymph % (Auto) 34.3 [place] % (Auto) 6.8 Eos % (Auto) 3.0 Baso % (Auto) 0.5 Absolute Neuts (auto) 6.1 Absolute Lymphs (auto) 3.81 Nucleated RBC % 0 Sodium 137 Potassium 3.7 Chloride 107 Carbon Dioxide 25.0 Anion Gap 5 BUN 16 Creatinine 0.92 Estim Creat Clear Calc 90.54 Est GFR (MDRD) Af Amer 87 Est GFR (MDRD) Non-Af 72 BUN/Creatinine Ratio 17.3 Glucose 115 H Calcium 8.3 L Total Bilirubin 0.50 AST 11 L ALT 23 Alkaline Phosphatase 46 Total Protein 7.6 Albumin 4.1 Globulin 3.5 Albumin/Globulin Ratio 1.2 Lipase 108 Serum , Qual NEGATIVE Radiography Diagnostic Testing: Clinical Impression(s) from Imaging Studies Abdomen/Pelvis CT 06/29/21 06:38 IMPRESSION: There is right hydronephrosis with a 4 mm calculus at the floor of the bladder. Electronically Signed: Aydin Gallagher MD at 7:32 EDT Reading Location ID and State: [facility] / [place] Tel , Service support , Discharge Plan Triage Chief Complaint: Complaint ED Provider: Kalpana Hartmann Dx/Rx/DC Orders Clinical Impression: Renal colic on right side, Hydronephrosis, right Instructions: ED Kidney Stone, Passed Prescriptions: New hydrocodone-acetaminophen 5-325 mg tablet 1 tab PO Q6H PRN (Reason: pain) 2 Days Qty: 6 RF: 0 ondansetron 4 mg tablet,disintegrating 4 mg PO Q6H PRN (Reason: nausea and vomiting) Qty: 10 RF: 0 No Action acetaminophen [Tylenol] 325 mg capsule 325 mg PO ONCE PRN (Reason: Pain) RF: 0 meclizine 25 mg tablet 25 mg PO BID PRN (Reason: dizziness) Qty: 20 RF: 0 fluticasone propionate [Flonase Allergy Relief] 50 mcg/actuation spray,suspension 1 spray intranasal BID Qty: 16 RF: 1 hydrocortisone [Preparation H Hydrocortisone] 1 % cream 1 applic topical TID PRN (Reason: HEMMROIDS) RF: 0 tizanidine 4 mg tablet 4 mg PO TID PRN (Reason: muscle spasticity) Qty: 90 RF: 2 cholecalciferol (vitamin D3) 50 mcg (2,000 unit) capsule 50 mcg PO DAILY Qty: 90 RF: 3 calcitriol 0.5 mcg capsule 1.5 mcg PO DINNER Qty: 90 RF: 6 levothyroxine 125 mcg tablet 125 mcg PO DAILY Qty: 90 RF: 3 Primary Care Provider: Levi Kent Referrals: Levi Kent MD [Primary Care Provider] - Tiana Sorensen MD [STAFF PHYSICIAN] - As Needed Disposition Disposition: Home, Self Care
[2021-06-29] MEDS: Ondansetron 4 MG/2 ML Vial IV (06:55)
[2021-06-29] MEDS: Morphine 4 MG/ML Syringe IV (06:55)
[2021-06-29] MEDS: Ketorolac 15 MG/ML Vial IV (06:56)
[2021-06-29] MEDS: 0.9% Normal Saline 1,000 ML 250 ML IV (06:56)
[2021-06-29 06:59] LABS: Absolute Lymphocyte Count 3.81 X10^3/uL (0.83-4.51); Absolute Neutrophil Count 6.1 X10^3/uL (2.0-7.7); Basophil# 0.06 X10^3/uL; Basophil% 0.5 % (0-1); Eosinophil# 0.33 X10^3/uL; Hematocrit 41.4 % (37-47); Hemoglobin 14.6 g/dL (12.0-15.0); Lymphocyte # 3.81 X10^3/ul (0.83-4.51); Lymphocyte % 34.3 % (19-41); Mean Corp Hgb Conc 35.3 g/dL (32-36); Mean Corpuscular Hgb 30.5 pg (27.0-32.0); Mean Corpuscular Volume 86.4 fL (81-99); Mean Platelet Vol. 11.2 fl (6.2-12.0); Monocyte# 0.75 X10^3/uL; Monocyte% 6.8 % (0-10); NRBC Flagged by Analyzer 0 % (0-5); Neutrophil # 6.14 X10^3/uL (2.7-7.7); Neutrophil % 55.2 % (47-70); Platelet Count 338 K/mm3 (150-450); RBC Distribution Width CV 12.1 % (11.6-14.6); RBC Distribution Width SD 38.6 fl (35.1-43.9); Red Blood Count 4.79 M/mm3 (4.2-5.4); White Blood Count 11.1 K/mm3 (4.4-11.0)
[2021-06-29 07:08] LABS: Internal QC Validated? YES +Cl - CLEAR BKGD; Pregnancy, Serum, hCG Quali. NEGATIVE Negative
[2021-06-29 07:14] LABS: ALB/GLOB Ratio 1.2 RATIO (0.9-2.4); AST(SGOT) 11 U/L (15-37); Alanine Aminotransfer ALT/SGPT 23 U/L (13-56); Albumin, Serum 4.1 g/dL (3.2-5.0); Alkaline Phosphatase 46 U/L (45-117); Anion Gap 5 (5-15); BUN 16 mg/dL (7-18); BUN/Creat Ratio 17.3 RATIO (10-20); Calcium,Total 8.3 mg/dL (8.5-10.1); Chloride 107 mmol/L (98-107); Creatinine, Serum 0.92 mg/dL (0.55-1.02); EST Glomerular Filtration Rate 72 mL/min (>60); Est Glom Filt Rate - Afr Amer 87 mL/min (>60); Estimated Creatinine Clearance 90.54 ml/min; Globulin 3.5 g/dL (2.2-4.2); Glucose 115 mg/dL (74-106); Lipase 108 U/L (73-393); Potassium 3.7 mmol/L (3.5-5.1); Protein, Total 7.6 g/dL (6.4-8.2); Sodium Level 137 mmol/L (136-145)
[2021-06-29 08:37] VITALS: BP 118/71; PULSE 57; RESP 16; O2SAT 100
[2021-06-29 09:59] LABS: Bacteria 0 SEEN /hpf (None Seen); Mucous, Urine 0 SEEN /hpf (<or=2+); Red Blood Cells-Urine 0 SEEN /hpf (0-5); White Blood Cells 0 SEEN /hpf (0-5)
[2021-06-29 10:00] LABS: Color, Urine Yellow (Yellow); Glucose, Dipstick Normal (Normal); Ketone-Dipstick 5 mg/dl (Negative); Leukocyte Esterase-Dipstick 100 /ul (Negative); Nitrite-Dipstick Negative (Negative); Occult Blood-Urine 50 /ul (Negative); Protein-Dipstick 30 mg/dl (Negative); Urine Bilirubin Dipstick 1 mg/dL (Negative); Urine Clarity Cloudy (Clear); Urine Urobilinogen 1 mg/dl (Normal)
[2021-06-29 10:05] LABS: Amorphous Sediment 3+; Squamous Epithelial Cells - UA 10-25 SEEN /hpf (5-10)
== END 2021-06-29 10:42 | disposition home or self-care (01) ==
PROVIDERS: Emergency Provider Emergency Medicine; PCP Internal Medicine; Visit Provider Emergency Medicine
DX: N23 Unspecified renal colic (principal); N13.30 Unspecified hydronephrosis; F17.210 Nicotine dependence, cigarettes, uncomplicated; E03.9 Hypothyroidism, unspecified; Z86.16 Personal history of COVID-19; Z79.899 Other long term (current) drug therapy
CPT/HCPCS: 74176; 80053; 81001; 83690; 84703; 85025; 96374; 96375; 99283; J7030; A4216; J2405

== ENCOUNTER 2021-07-01 09:38 | Observation (INO) | payer MEDICAID, SELFPAY ==
[2021-07-01] VITALS (8 sets, daily range): BP systolic 101–115; BP diastolic 49–80; PULSE 57–79; RESP 16–18; TEMP 36.7–37.3; O2SAT 95–100; BMI 26.5; BMI 26.4
--- NOTE | 2021-07-01 09:55 | EKG12_ITS ---
Test Reason : PREOP Blood Pressure : / mmHG Vent. Rate : 057 BPM Atrial Rate : 057 BPM P-R Int : 138 ms QRS Dur : 086 ms QT Int : 424 ms P-R-T Axes : 046 053 038 degrees QTc Int : 412 ms Sinus bradycardia Otherwise normal ECG Confirmed by BIBI BONNER, SUSAN ([id number]), fan mail editor CELIA BYRD ([id number]) on 07/03/2021 8:54:27 AM Referred By: JE Confirmed By:SUSAN MTZ MD
--- NOTE | 2021-07-01 10:00 | RAD_ITS ---
STUDY: X-RAY CHEST REASON FOR EXAM: Female, 35 years old. Pre-op -- surgery at 1200 TECHNIQUE: Single AP portable view of the chest. COMPARISON: Comparison is made with prior study dated 03/27/2021. FINDINGS: The lungs are clear and expanded. There is no demonstrated pleural abnormality. Normal size heart. Normal mediastinum and kaylin. Normal visualized pulmonary arteries. Normal visualized aortic arch and descending thoracic aorta. Normal visualized thoracic spine. Normal visualized ribs, clavicles, and shoulders. There is no demonstrated abnormality of the visualized soft tissue structures of the upper abdomen. RAD/Chest 1 View (Portable) IMPRESSION: Normal x-ray examination of the chest. Electronically Signed: Dimitris Stewart MD at 11:08 EDT ,
[2021-07-01] MEDS: Ondansetron 4 MG/2 ML Vial IV (10:05)
[2021-07-01] MEDS: Morphine 4 MG/ML Syringe IV ×2 (10:05→16:48)
[2021-07-01] MEDS: Lactated Ringers 1,000 ML 150 ML IV (10:05)
[2021-07-01] MEDS: 0.9% Saline Lock 10 ML Syringe IV (10:09)
[2021-07-01 10:35] LABS: Absolute Neutrophil Count 8.4 X10^3/uL (2.0-7.7); Basophil# 0.04 X10^3/uL; Basophil% 0.3 % (0-1); Eosinophil# 0.06 X10^3/uL; Eosinophils% 0.5 % (0-5); Hematocrit 35.9 % (37-47); Hemoglobin 12.9 g/dL (12.0-15.0); Lymphocyte % 22.7 % (19-41); Mean Corp Hgb Conc 35.9 g/dL (32-36); Mean Corpuscular Hgb 31.2 pg (27.0-32.0); Mean Corpuscular Volume 86.7 fL (81-99); Mean Platelet Vol. 11.1 fl (6.2-12.0); Monocyte# 1.05 X10^3/uL; Monocyte% 8.5 % (0-10); NRBC Flagged by Analyzer 0 % (0-5); Neutrophil # 8.36 X10^3/uL (2.7-7.7); Neutrophil % 67.7 % (47-70); Platelet Count 252 K/mm3 (150-450); RBC Distribution Width CV 12.2 % (11.6-14.6); RBC Distribution Width SD 38.9 fl (35.1-43.9); Red Blood Count 4.14 M/mm3 (4.2-5.4); White Blood Count 12.4 K/mm3 (4.4-11.0)
--- NOTE | 2021-07-01 12:09 | HP.PCM_ITS ---
HPI - General General Date of Admission: 07/01/21 HPI Narrative AMY VILLEDA, is a 35 F who presents with uncontrolled right abdominal and flank pain with nausea. Has not eaten since yesterday. Had CT in the ER 2 days ago showing right distal ureteral stone with significant hydroureteronephrosis. She agrees to proceed with surgical intervention. Informed consent was obtained. [facility] Medical History (Updated 07/01/21 @ 12:[address] Tiana Sorensen MD) Abdominal pain Abnormal urinalysis Annular tear of lumbar disc Anxiety Arthritis Asthma Back pain Carpal tunnel syndrome Chronic constipation Chronic pain Chronic pain Degenerative disc disease Degenerative disc disease at L5-S1 level Depression Diarrhea Generalized anxiety disorder with panic attacks H/O breast lump Heartburn Hiatal hernia History of COVID-19 History of steroid therapy Hx of cystic acne Hx of hypoglycemia Hypocalcemia Hypocalcemia syndrome Hypoglycemia Hypokalemia Hypothyroidism Injury of head and neck Irregular heart beat Kidney stones Leg cramps Pelvic pain Polycystic ovaries Post-surgical hypoparathyroidism Postoperative hypothyroidism Postsurgical hypoparathyroidism Seasonal allergies Shortness of breath on exertion Smoker Syncope Tinea pedis of both feet TMJ (temporomandibular joint syndrome) Upper respiratory infection Ureteral calculus, right Urinary tract infection Vertigo Vitamin deficiency Wears dentures Home Medications acetaminophen 325 mg capsule 325 mg PO ONCE PRN 12/04/20 [History Last Taken Unknown] tizanidine 4 mg tablet 4 mg PO TID PRN #90 tab 12/24/20 [Rx Last Taken 06/30/21] meclizine 25 mg tablet 25 mg PO BID PRN #20 tab 02/13/21 [Rx Last Taken Unknown] cholecalciferol (vitamin D3) 50 mcg (2,000 unit) capsule 50 mcg PO DAILY #90 cap 04/14/21 [Rx Last Taken Unknown] fluticasone propionate 50 mcg/actuation nasal spray,suspension 1 spray INTRANASAL BID #16 g 04/17/21 [Rx Last Taken 06/30/21] hydrocortisone 1 % topical cream 1 applic TOPICAL TID PRN 06/05/21 [History Last Taken Unknown] calcitriol 0.5 mcg capsule 1.5 mcg PO DINNER #90 cap 06/14/21 [Rx Last Taken 06/30/21] levothyroxine 125 mcg tablet 125 mcg PO DAILY #90 tab 06/14/21 [Rx Last Taken 07/01/21] hydrocodone-acetaminophen 1 tab PO Q6H PRN 2 Days #6 tab 06/29/21 [Rx Last Taken 06/30/21] ondansetron 4 mg PO Q6H PRN #10 tab 06/29/21 [Rx Last Taken 06/30/21] Allergy/AdvReac Type Severity Reaction Status Date / Time codeine Allergy can't Verified 06/17/21 12:28 sleep; itching fluoxetine [From Prozac] Allergy causes Verified 06/17/21 12:28 manic state naproxen Allergy nose bleed Verified 06/17/21 12:28 Family History Father Alcoholism Mother Anemia Depression Hypertension Hyperlipemia Diabetes Grandfather Diabetes Myocardial infarction Grandmother Breast cancer Diabetes Surgical History H/O thyroidectomy History of cholecystectomy History of cholecystectomy History of partial hysterectomy History of thyroidectomy History of total hysterectomy S/P hysterectomy Social History Smoking Status: Current every day smoker tobacco type: cigarettes Tobacco: How many years used: 20 alcohol intake: never substance use type: does not use what type of physical activity do you participate in: none ROS Constitutional Constitutional: Reports poor appetite; Denies chills or fever(s) Eyes Eyes: Denies change in vision ENT HEENT: Denies abnormal hearing or loss taste/smell Cardiovascular Cardiovascular: Reports abdominal pain and nausea; Denies chest pain, dyspnea or rapid heart rate Respiratory/Chest Respiratory/Chest: Denies chest congestion, cough or dyspnea Gastrointestinal Gastrointestinal: Reports abdominal pain, cramping and nausea; Denies taste impaired Genitourinary Genitourinary: Reports abdominal discomfort, burning urination, hematuria, u rinary frequency and urinary urgency Musculoskeletal Musculoskeletal: Reports back pain Integumentary Integumentary: Reports systems reviewed and no addt'l complaints, except as documented Neurologic Neurologic: Reports systems reviewed and no addt'l complaints, except as documented Psychiatric Psychiatric: Reports systems reviewed and no addt'l complaints, except as documented Endocrine Endocrinology: Reports systems reviewed and no addt'l complaints, except as documented Hematologic/Lymphatic Hematologic/Lymphatic: Reports systems reviewed and no addt'l complaints, except as documented Allergic/Immunologic Allergic/Immunologic: Reports systems reviewed and no addt'l complaints, except as documented Vital Signs Vital Signs Vital Signs: 07/01/21 08:59 07/01/21 09:20 07/01/21 10:40 Temperature 99.2 F H Temperature Source Oral Pulse Rate 79 Pulse Strength Normal (2+) Respiratory Rate 18 Respiratory Effort Normal Non-Labored Respiratory Depth Normal Respiratory Pattern Normal Blood Pressure 115/80 Blood Pressure Mean 91 Blood Pressure Source Monitor Blood Pressure Position Sitting Blood Pressure Location Left Arm Pulse Ox 100 Oxygen Delivery Method Room Air Room Air Weight Weight: 83.506 kg Body Mass Index (BMI) 26.4 Physical Exam Const alert and oriented x3 General Appearance: in distress Positive for moderate HEENT normocephalic, head/scalp atraumatic, external ears normal and external nose normal Eyes conjunctivae normal and no scleral icterus General Eye: normal appearance of both eyes Neck supple General: trachea midline Lymph Lymphatic: no lymphedema noted Chest inspection of chest normal Chest: symmetrical chest wall rise Resp normal respiratory effort, normal air movement, no retractions and no use of accessory muscles Cardio regular rate and regular rhythm GI soft to palpation and non-distended Bladder / Kidney Exam: CVA tenderness right Back/Spine General Back: CVA tenderness right Extremity normal to inspection, no clubbing, cyanosis or edema and no calf tenderness Skin no rashes or lesions noted, no wounds, skin turgor normal, no jaundice, no petechiae and no mottling Neuro oriented x3, CN's II-XII intact bilaterally and moves all extremities Psych mental status grossly normal, thought process normal, cooperative and affect normal Results Lab / Micro Data Result Diagrams: 07/01/21 10:26 Labs: Laboratory Results - last 24 hr 07/01/21 10:26: WBC 12.4 H, RBC 4.14 L, Hgb 12.9, Hct 35.9 L, MCV 86.7, MCH 31.2, MCHC 35.9, RDW Std Deviation 38.9, RDW Coeff of Jenn 12.2, Plt Count 252, MPV 11.1, Immature Gran % (Auto) 0.300, Neut % (Auto) 67.7, Lymph % (Auto) 22.7, [place] % (Auto) 8.5, Eos % (Auto) 0.5, Baso % (Auto) 0.3, Absolute Neuts (auto) 8.4 H, Absolute Lymphs (auto) 2.80, Nucleated RBC % 0 07/01/21 10:26: TSH 11.60 H Micro: Microbiology 07/01/21 09:47 Nasal Secretion SARS-CoV-2 Antigen (Rapid) - Final Radiology Impression Chest X-Ray 07/01/21 10:00 IMPRESSION: Normal x-ray examination of the chest. Electronically Signed: Dimitris Stewart MD at 11:08 EDT , Assessment & Plan Assessment/Plan (1) Hydronephrosis, right: (2) Ureteral calculus, right: (3) Urinary tract infection: PLAN: cystoscopy with ureteral stent insertion. pain control, IVF, nausea control antibiotics informed consent obtained
[2021-07-01] MEDS: Cefazolin 2 GM in 0.9% Normal Saline 100 ML IV (12:12)
--- NOTE | 2021-07-01 12:22 | PCM.OPRPT ---
Problems Associated Problem List Diagnoses (1) Urinary tract infection: (2) Ureteral calculus, right: (3) Hydronephrosis, right: Report of Operation Date of Procedure: 07/01/21 Pre-Operative Diagnosis: right ureteral calculus with hydronephrosis and urinary tract infection Post-Operative Diagnosis: same Surgery/Procedure Performed:: cystoscopy with right ureteral stent insertion Surgeon: Tiana Sorensen Type of Anesthesia: MAC Specimen's removed: None Description of Procedure: The patient is a 35-year-old female with a distal right ureteral calculus who presents for cystoscopy with stent insertion secondary to acute urinary tract infection. Informed consent was obtained. The patient was taken to the operating room and placed on the operating room table. Anesthesia monitored the head, neck, airway, IV access and vital signs throughout the case. Once anesthesia was appropriately administered the patient placed into dorsal lithotomy position. She was prepped and draped in usual sterile fashion. At this time the cystoscope was inserted through the urethra under direct visualization into the urinary bladder. The bladder mucosa was visualized in its entirety and found to be within normal limits. The right ureteral orifice was located in the correct anatomic position on area of the trigone. It was intubated with a 0.035 Glidewire and a 6 x 28 cm JJ stent was positioned easily in the right renal pelvis and curled in the urinary bladder. A significant amount of urine poured out of the stent following placement. At this time the patient's bladder was emptied and she was awakened and taken to the recovery room in good condition. There were no complications during this procedure. Grafts/Implants Used: 6 x 28 cm JJ stent Complications none Admit VTE Documentation VTE Present on Admission: Yes VTE Mechan Device Prophylaxis: SCD's VTE Pharm Prophylaxis ordered?: No Reason prophylaxis not ordered:: Treatment Not Indicated
--- NOTE | 2021-07-01 12:23 | PCM.DC ---
Discharge Instructions Diet Discharge Diet: No restrictions Activity Discharge Activity: Return to Normal Activity Dressing / Incision Call your doctor if you observe: Fever of 101 or Higher, Inability to urinate and Inability to have a bowel movement Follow Up Care Please Follow Up With: Tiana Sorensen MD When: call office for appt Test Results: Test results from this visit will be discussed in further detail at your follow-up appointment, if applicable. Discharge Plan Admission Admit Date/Time: 07/01/21 08:41 Attending Provider: Tiana Sorensen Primary Care Provider: Levi Kent Discharge Orders/Prescriptions Prescriptions: New ondansetron HCl [ondansetron HCl] 8 MG tablet 8 mg PO Q8H PRN PRN (Reason: Nausea) 7 Days Qty: 20 RF: 0 oxycodone-acetaminophen [oxycodone-acetaminophen] 1 TABLET tablet 2 tab PO Q8H PRN PRN (Reason: Pain) 7 Days Qty: 20 RF: 0 cephalexin [cephalexin] 500 MG capsule 500 mg PO TID 5 Days Qty: 15 RF: 0 phenazopyridine [Pyridium] 200 MG tablet 200 mg PO TID PRN PRN (Reason: Bladder Spasms) 7 Days Qty: 30 RF: 0 Continued acetaminophen [Tylenol] 325 mg capsule 325 mg PO ONCE PRN (Reason: Pain) RF: 0 meclizine 25 mg tablet 25 mg PO BID PRN (Reason: dizziness) Qty: 20 RF: 0 fluticasone propionate [Flonase Allergy Relief] 50 mcg/actuation spray,suspension 1 spray intranasal BID Qty: 16 RF: 1 hydrocortisone [Preparation H Hydrocortisone] 1 % cream 1 applic topical TID PRN (Reason: HEMMROIDS) RF: 0 hydrocodone-acetaminophen 5-325 mg tablet 1 tab PO Q6H PRN (Reason: pain) 2 Days Qty: 6 RF: 0 ondansetron 4 mg tablet,disintegrating 4 mg PO Q6H PRN (Reason: nausea and vomiting) Qty: 10 RF: 0 tizanidine 4 mg tablet 4 mg PO TID PRN (Reason: muscle spasticity) Qty: 90 RF: 2 cholecalciferol (vitamin D3) 50 mcg (2,000 unit) capsule 50 mcg PO DAILY Qty: 90 RF: 3 calcitriol 0.5 mcg capsule 1.5 mcg PO DINNER Qty: 90 RF: 6 levothyroxine 125 mcg tablet 125 mcg PO DAILY Qty: 90 RF: 3 Referrals / Follow Up: Levi Kent MD [Primary Care Provider] - Disposition Disposition (needs filled in before D/C Order can be placed): Home, Self Care
== END 2021-07-01 18:37 | disposition home or self-care (01) ==
PROVIDERS: Admitting Provider Urology; PCP Internal Medicine; Visit Provider Urology
PROC: (CPT 52332; principal; 2021-07-01 12:20)
DX: N13.6 Pyonephrosis (principal); F41.0 Panic disorder [episodic paroxysmal anxiety]; F17.210 Nicotine dependence, cigarettes, uncomplicated; G89.29 Other chronic pain; F41.1 Generalized anxiety disorder; M51.37 Other intervertebral disc degeneration, lumbosacral region; M19.90 Unspecified osteoarthritis, unspecified site; J45.909 Unspecified asthma, uncomplicated; E89.0 Postprocedural hypothyroidism; E55.9 Vitamin D deficiency, unspecified; Z79.890 Hormone replacement therapy; Z86.16 Personal history of COVID-19; Z79.51 Long term (current) use of inhaled steroids; Z79.899 Other long term (current) drug therapy; F32.A Depression, unspecified
CPT/HCPCS: 52332; 00910; 36415; 71045; 76000; 84443; 85025; 87426; 93005; 96374; 96375; 96376; 99406; J7120; A4216; J2405

== ENCOUNTER 2021-07-08 09:24 | Outpatient (CLI) | payer MEDICAID, SELFPAY ==
--- NOTE | 2021-07-08 09:28 | RAD_ITS ---
STUDY: X-RAY - ABDOMEN/PELVIS REASON FOR EXAM: Female, 35 years old. KUB TECHNIQUE: Single AP view of the abdomen / pelvis. COMPARISON: None. FINDINGS: There is a moderate amount of colonic fecal material. A right-sided double-J stent catheter has been placed. The proximal tip is in the region of the right renal pelvis and distal tip is in the bladder. Normal soft tissue structures. Normal visualized osseous structures. RAD/Abdomen Single View IMPRESSION: Right-sided double-J stent catheter in situ. No abnormal calcifications are seen. Electronically Signed: Dimitris Stewart MD at 13:48 EDT ,
== END 2021-07-08 23:59 | disposition home or self-care (01) ==
PROVIDERS: PCP Internal Medicine; Referring Provider Urology; Visit Provider Urology
DX: N20.1 Calculus of ureter (principal)
CPT/HCPCS: 74018

== ENCOUNTER 2021-07-23 11:10 | Outpatient (CLI) | payer MEDICAID, SELFPAY ==
[2021-07-23 11:12] LABS: Bacteria 0 SEEN /hpf (None Seen); Mucous, Urine 0 SEEN /hpf (<or=2+); Squamous Epithelial Cells - UA 0 SEEN /hpf (5-10); White Blood Cells 0 SEEN /hpf (0-5)
[2021-07-23 11:57] LABS: Color, Urine Yellow (Yellow); Glucose, Dipstick Normal (Normal); Ketone-Dipstick Negative (Negative); Leukocyte Esterase-Dipstick Negative /ul (Negative); Nitrite-Dipstick Negative (Negative); Occult Blood-Urine 10 /ul (Negative); Protein-Dipstick Negative (Negative); Urine Bilirubin Dipstick Negative (Negative); Urine Clarity Sl. Cloudy (Clear); Urine Urobilinogen Normal (Normal)
[2021-07-23 12:04] LABS: Red Blood Cells-Urine 0-5 SEEN /hpf (0-5)
== END 2021-07-23 23:59 | disposition home or self-care (01) ==
LOC: LABSPEC 11:11
PROVIDERS: PCP Internal Medicine; Referring Provider Nurse Practitioner Family; Visit Provider Nurse Practitioner Family
DX: R82.90 Unspecified abnormal findings in urine (principal)
CPT/HCPCS: 81001; 87086; 87088

== ENCOUNTER 2021-07-24 15:26 | Outpatient (CLI) | payer MEDICAID, SELFPAY | END 2021-07-24 23:59 | disposition home or self-care (01) | LOC: LABSPEC 15:28 | PROVIDERS: PCP Internal Medicine; Referring Provider Surgery; Visit Provider Surgery | DX: L02.412 Cutaneous abscess of left axilla (principal) | CPT/HCPCS: 87070; 87075; 87077; 87205 ==

== ENCOUNTER → 2021-08-05 | Outpatient (CLI) | payer MEDICAID, SELFPAY | END | disposition home or self-care (01) | LOC: MTLAB 10:20 | PROVIDERS: PCP Internal Medicine; Referring Provider Urology; Visit Provider Urology | DX: R82.994 Hypercalciuria (principal) | CPT/HCPCS: 36415; 82310 ==

== ENCOUNTER 2021-10-06 11:02 | Day surgery (SDC) | payer MEDICAID, SELFPAY ==
[2021-10-06] VITALS (7 sets, daily range): BP systolic 95–129; BP diastolic 56–69; PULSE 58–100; RESP 15–18; TEMP 36.2–37.1; O2SAT 99–100; BMI 25.0
--- NOTE | 2021-10-06 11:19 | HP.PCM_ITS ---
History and Physical Date of Admission: 10/06/21 HPI Details: add egd for CP, abd pain to colonoscopy, date changed to 08/27/21. Reviewed nl labs with pt. dicyclomine is helping abd cramp pain. 06/18/21 1300 <Electronically signed by Rosaline Pacheco POWER DISTRIBUTION ENGINEER POWER DISTRIBUTION ENGINEER-C> Date Rosaline Pacheco NP POWER DISTRIBUTION ENGINEER-C cc:? Dr. Levi Kent MD ~* Signed Intake Intake Visit Reasons:?DIVERTICULITIS? Allergies codeine Allergy (Verified 06/16/21 08:42) can't sleep; itchingfluoxetine [From Prozac] Allergy (Verified 06/16/21 08:42) causes manic statenaproxen Allergy (Verified 06/16/21 08:42) nose bleed Medications acetaminophen 325 mg capsule 325 mg PO ONCE PRN 12/04/20 [History Confirmed 06/16/21] tizanidine 4 mg tablet 4 mg PO TID PRN #90 tab 12/24/20 [Rx Confirmed 06/16/21] meclizine 25 mg tablet 25 mg PO BID PRN #20 tab 02/13/21 [Rx Confirmed 06/16/21] cholecalciferol (vitamin D3) 50 mcg (2,000 unit) capsule 50 mcg PO DAILY #90 cap 04/14/21 [Rx Confirmed 06/16/21] fluticasone propionate 50 mcg/actuation nasal spray,suspension 1 spray INTRANASAL BID #16 g 04/17/21 [Rx Confirmed 06/16/21] zinc 50 mg tablet 25 mg PO BID 04/21/21 [History Confirmed 06/16/21] hydrocortisone 1 % topical cream 1 applic TOPICAL TID PRN 06/05/21 [History Confirmed 06/16/21] calcitriol 0.5 mcg capsule 1.5 mcg PO DINNER #90 cap 06/14/21 [Rx Confirmed 06/16/21] levothyroxine 125 mcg tablet 125 mcg PO DAILY #90 tab 06/14/21 [Rx Confirmed 06/16/21] PFSH Medical History? Abdominal pain Annular tear of lumbar disc Anxiety Arthritis Asthma Back pain Carpal tunnel syndrome Chest pain Chronic constipation Degenerative disc disease Degenerative disc disease at L5-S1 level Depression Diarrhea Generalized anxiety disorder with panic attacks H/O breast lump Heartburn History of COVID-19 History of palpitations History of steroid therapy Hx of cystic acne Hx of hypoglycemia Hypocalcemia Hypocalcemia syndrome Hypoglycemia Hypokalemia Hypothyroidism Injury of head and neck Leg cramps Pelvic pain Polycystic ovaries Post-surgical hypoparathyroidism Postoperative hypothyroidism Postsurgical hypoparathyroidism Seasonal allergies Shortness of breath on exertion Smoker Tinea pedis of both feet TMJ (temporomandibular joint syndrome) Upper respiratory infection Vitamin deficiency Wears dentures Surgical History? History of cholecystectomy History of partial hysterectomy History of thyroidectomy History of total hysterectomy Family History? Father AlcoholismMother Anemia Depression Hypertension Hyperlipemia DiabetesGrandfather Diabetes Myocardial infarctionGrandmother Breast cancer Diabetes Social History? Smoking Status:? Current every day smoker tobacco type: cigarettes Tobacco: How many years used:? 20 alcohol intake:? never substance use type:? does not use what type of physical activity do you participate in:? none HPI HPI Details: AMY VILLEDA, is a 35 F who presents to the office today for abd bloating, abd pain, questions about diverticulosis which was found on CT. Constipation began a couple of years ago. EGD and colonoscopy were done at [facility], per pt they found hiatal hernia and hemorrhoids. Then treated for thyroid nodules suspicious for cancer at [facility] 2+yrs ago, had thyroidectomy. Now followed by executive manager Dr Saldana for hypoparathyroidism. ? She had intermittent RUQ pain for more than one year, worsened 03/2021, that has resolved with cholecystectomy done by Dr Rob in 04/2021. Less nausea since then too. She reports constipation resolved after cholecystectomy. Hasn't needed a laxative since the first week after cholecystectomy. Used to need dulcolax to have a BM. Stool can be watery or loose or soft; can be formed but they're small. Can feel urgency but then no BM. Stabbing pain in rectum with recent BM. Getting cramping RLQ and to lesser extent LLQ; and pain to the right of her umbilicus--this preceded the cholecystectomy and persists; no pattern she can discern; no particular aggravating or relieving factors. Feels like needs to pass gas but can't. Nausea increases when she has abd pain/cramping. Increased bloating after eating. Belly looks bloated by the end of the day. Stool has been mucousy. No hematochezia or melena. No heartburn, acid reflux. She gets frequent CP and palpitations; seeing cardiology tomorrow. She has added fiber and water since cholecystectomy. She is concerned about unintentional weight loss--she has decreased from 215 to 185 lbs in approx 5 mos ROS Const Constitutional: Positive for weight change (loss); No fatigue, fever(s), headache(s), sleep problems, abnormal sleep pattern or change in appetite ENT ENT: Positive for nosebleed/epistaxis; No headache(s), difficulty swallowing, hoarseness or sore throat Resp Respiratory: No cough, hemoptysis or shortness of breath Cardio Cardiology: Positive for chest pain at rest; No generalized swelling Gastro GI: Positive for abdominal pain, bloating, change in bowel habits, constipation, diarrhea and nausea/dyspepsia; No belching, change in stool character, coffee ground emesis, cramping, heartburn, difficulty swallowing, feeling full early, excessive flatus, incontinent of stools, Vomiting blood/hematemesis, Blood in stool, loose stools, Black,tarry stools, pain with swallowing or vomiting Musc Musculoskeletal: Positive for back pain, muscle cramps, muscle weakness, numbness, stiffness, tingling, Arthritis and sciatica; No joint pain or joint swelling Skin Skin: Positive for dry skin; No itchy eyes or rash Neuro Neurology: Positive for numbness and tingling; No behavioral changes, confusion or headache(s) Psych Psychiatric: No abnormal sleep pattern, No anxiety, No behavioral changes, No change in appetite, No confusion and No depression Endo Endocrine: Positive for weight change (loss); No cold intolerance, fatigue, heat intolerance or increased thirst/drinking Aller/Imm Allergy/Immunologic: No food intolerance or itchy eyes Alec/Lymp Hematologic/Lymphatic: No easy bleeding, easy bruising or enlarged lymph nodes Exam Const General: cooperative, healthy appearing, no acute distress, well developed and well groomed Eyes Sclera: sclerae normal Resp Effort & Inspection: normal respiratory effort GI Inspection: normal to inspection Palpation: soft and tender in the LLQ, in the RLQ and in the RUQ Supplemental Info CT abd pel w contrast 04/2021 FINDINGS: The visualized lung bases are unremarkable.? The visualized portions of the heart are within normal limits. Normal liver.? The patient is status post cholecystectomy.? Normal spleen. Normal pancreas. Normal bilateral adrenal glands. Normal right kidney.? Normal left kidney. Normal visualized stomach.? Normal small intestine.? There are scattered colonic diverticula consistent with diverticulosis.? The appendix is visualized and appears normal. Normal abdominal aorta.? Normal inferior vena cava.? Normal retroperitoneum. Normal urinary bladder.? There is absence of the uterus consistent with a prior hysterectomy.? A small amount of free fluid is seen in the right side of the cul-de-sac.? This is unchanged. Normal abdominal wall.? There are degenerative changes of the visualized lumbar spine. CT/Abdomen/Pelvis W IV Cont ONLY IMPRESSION: Status post cholecystectomy. Status post hysterectomy. Small amount of free fluid is seen in the right cul-de-sac.? This is unchanged. Quality Reporting Tobacco Screening ([facility]) Smoking Status: Current every day smoker Assessment and Plan Assessment and Plan (1) Abdominal pain: ?Status:?Acute (2) Unintentional weight loss: ?Status:?Acute (3) Tenesmus (rectal): ?Status:?Acute (4) Bloating: ?Status:?Acute (5) Diverticulosis: ?Status:?Acute ? ? ? Orders:?Orders: ? CRP Today R10.9, R63.4, R19.8 ? ? Erythrocyte Sed Rate Today R10.9, R63.4, R19.8 ? ? Miscellaneous Lab Procedure Today R10.9, R63.4, R19.8 ? ? Celiac Disease Profile Today R63.4, R19.8, R14.0 ?Plan: 35 yr old female with unintentional weight loss, abd pain, abd cramping, tenesmus, bloating, nausea. Since recent cholecystectomy she no longer has constipation. ?hx rheumatoid arthritis. Will get crp, esr and john-comprehensive today, celiac labs. Encouraged her to try the dicyclomine that Dr Kent prescribed, let me know it's efficacy. I will call her with lab results and next step. She is scheduled for colonoscopy 08/18/21 with 2 wk f/u after that. We discussed diverticular disease. DDx for her symptoms includes IBS, IBD, malignancy, microscopic colitis, celiac I have re-examined the patient. There are no clinical changes since date of exam.
[2021-10-06] MEDS: Lactated Ringers 1,000 ML 15 ML IV (11:26)
--- NOTE | 2021-10-06 12:00 | COLBX_PTH ---
PATIENT: AMY VILLEDA LOC: EN U#:[id number] AGE/SX: 36/F ROOM: RE10/06/[address]: Dr. Jules Rene DO : 1985 BED: DIS: 10/06/2021 SPEC #: [id number] RECD: 10/06/21 14:41 STATUS: NICOLE RIAN #: [id number] MERLE: 10/06/21 12:[address]: Jules Rene DEPT: SURGICAL PATHOLOGY RECD BY: Fide Reyes ENTERED: 10/07/21 07:41 SP TYPE: COLON BX OTHR DR: Dr. Levi Kent MD Tissues: A - COLON BIOPSY B - Duodenum, NOS C - Gastric mucous membrane D - Esophagus, NOS E - Cecum, NOS F - Ileum, NOS G - COLON BIOPSY H - SPLENIC FLEXURE Procedures: Surgery Specimen Level IV HEADER OPERATION: Colonoscopy, EGD ([facility] [place]) PRE-OP DIAGNOSIS: Tenesmus, weight loss, diverticulosis, abdominal pain, bloating TISSUE SUBMITTED: A ? Submucosal mass, B ? Duodenum biopsy, C ? Gastric body biopsy, D ? Distal esophagus biopsy, E ? Cecum biopsy, F ? Terminal ileum, G ? Random colonic biopsies, H ? Splenic flexure polyp MICROSCOPIC DIAGNOSIS A. Submucosal mass, biopsy: Fragments of duodenal mucosa with Farooq gland hyperplasia, gastric metaplasia and nonspecific mild chronic inflammation. B. Duodenum, biopsy: A fragment of duodenal mucosa with mild nonspecific chronic inflammation and congestion. C. Gastric body, biopsy: Mild gastritis. See microscopic description and comment. D. Distal esophagus, biopsy: Fragments of squamous epithelium with mild chronic inflammation and congestion. E. Cecum, biopsy: Fragments of colonic mucosa, no pathologic diagnosis. F. Terminal ileum, biopsy: A fragment of small intestinal mucosa, no pathologic diagnosis. G. Colon, random biopsy: Fragments of colonic mucosa, no pathologic diagnosis. H. Splenic flexure polyp, biopsy: Tubular adenoma. SJ:rg 10/08/2021 COMMENT C. The results of immunohistochemistry for Helicobacter pylori will be reported separately ([id number]). MICROSCOPIC DESCRIPTION Slides are reviewed. C. The specimen shows fragments of gastric mucosa with chronic inflammatory cell infiltrates in the lamina propria consisting of lymphocytes and plasma cells, consistent with mild chronic gastritis. GROSS DESCRIPTION A - Received in fixative is one container labeled with the patient's name and designated submucosal mass. The specimen consists of two irregular fragments of light whyte soft tissue that in aggregate measure 0.6 x 0.3 x 0.1 cm. The specimen is totally submitted in one cassette. B - Received in fixative is one container labeled with the patient's name and designated duodenum biopsy. The specimen consists of one irregular fragment of light whyte soft tissue that measures 0.3 x 0.3 x 0.1 cm. The specimen is totally submitted in one cassette. C - Received in fixative is one container labeled with the patient's name and designated gastric body biopsy. The specimen consists of two irregular fragments of light whyte soft tissue that in aggregate measure 0.8 x 0.2 x 0.1 cm. The specimen is totally submitted in one cassette. D - Received in fixative is one container labeled with the patient's name and designated distal esophagus biopsy. The specimen consists of multiple irregular fragments of light whyte soft tissue that in aggregate measure 1 x 0.5 x 0.1 cm. The specimen is totally submitted in one cassette. E - Received in fixative is one container labeled with the patient's name and designated cecum biopsy. The specimen consists of multiple irregular fragments of light whyte soft tissue that in aggregate measure 0.8 x 0.2 x 0.1 cm. The specimen is totally submitted in one cassette. F - Received in fixative is one container labeled with the patient's name and designated terminal ileum biopsy. The specimen consists of one irregular fragment of light whyte soft tissue that measures 0.4 x 0.3 x 0.1 cm. The specimen is totally submitted in one cassette. G - Received in fixative is one container labeled with the patient's name and designated random colonic biopsy. The specimen consists of multiple irregular fragments of light whyte soft tissue that in aggregate measure 1.5 x 0.5 x 0.1 cm. The specimen is totally submitted in one cassette. H - Received in fixative is one container labeled with the patient's name and designated splenic flexure polyp. The specimen consists of two irregular fragments of light whyte soft tissue that in aggregate measure 0.5 x 0.2 x 0.1 cm. The specimen is totally submitted in one cassette. / DNEZEL:almaz 10/07/2021 TC:5 CPT: 65470 x8
--- NOTE | 2021-10-06 12:00 | IMM_PTH ---
PATIENT: AMY VILLEDA LOC: EN U#:[id number] AGE/SX: 36/F ROOM: RE10/06/[address]: Dr. Jules Rene DO : 1985 BED: DIS: 10/06/2021 SPEC #: [id number] RECD: 10/07/21 09:46 STATUS: NICOLE REQ #: [id number] MERLE: 10/06/21 12:[address]: Jules Rene DEPT: IMMUNOHISTOCHEMISTRY RECD BY: Chelle Dias ENTERED: 10/07/21 09:47 SP TYPE: IMMUNO OTHR DR: Dr. Levi Kent MD Tissues: C - Stomach, NOS Procedures: H Pylori (initial) PHYSICIAN & INSTITUTION [place] [id number] SPECIMEN INFORMATION: Tissue Source: C ? Gastric body biopsy Clinical Info: Tenesmus, weight loss, diverticulosis, abdominal pain, bloating Specimen Number: [id number] CPT code: 44500 METHODOLOGY: Deparaffinized sections of prefer/formalin-fixed tissue or PAP/DQ stained slides are incubated with monoclonal/polyclonal antibodies/oligonucleotide probes. Localization is made via biotin free immunoperoxidase method. Appropriate controls are performed and reacted as expected. Results on target cell population are indicated in the following table: RESULTS: ANTIBODY / CLONE RESULT Block C H Pylori (polyclonal) negative These tests were developed and their performance characteristics determined by [facility]. They may not have been cleared or approved by the U.S. Food and Drug Administration. The FDA has determined that such clearance or approval is not necessary. The above immunohistochemical/dualISH markers are ordered and reviewed by the Pathologist. INTERPRETATION: C. Gastric body, biopsy: Negative for Helicobacter pylori organisms. SJ:almaz 10/08/2021
--- NOTE | 2021-10-06 13:04 | OP.EGD_ITS ---
Patient Name: Isabel Sparks Procedure Date: 10/06/2021 12:17 PM Date of : 1985 Age: 36 Procedure: Upper GI endoscopy Indications: Epigastric abdominal pain, Functional Dyspepsia Providers: Jules Rene DO Referring MD: Levi Kent MD Medicines: Monitored Anesthesia Care Patient Profile: This is a 36 year old female. Refer to note in patient chart for documentation of history and physical. Patient has symptoms of chronic epigastric abdominal pain. Complications: No immediate complications. Procedure: Pre-Anesthesia Assessment: - Prior to the procedure, a History and Physical was performed, and patient medications and allergies were reviewed. The risks and benefits of the procedure and the sedation options and risks were discussed with the patient. All questions were answered and informed consent was obtained. Patient identification and proposed procedure were verified by the physician in the pre-procedure area. Mental Status Examination: alert and oriented. Airway Examination: normal oropharyngeal airway and neck mobility. Respiratory Examination: clear to auscultation. CV Examination: normal. Prophylactic Antibiotics: The patient does not require prophylactic antibiotics. Prior Anticoagulants: The patient has taken no previous anticoagulant or antiplatelet agents. ASA Grade Assessment: II - A patient with mild systemic disease. After reviewing the risks and benefits, the patient was deemed in satisfactory condition to undergo the procedure. The anesthesia plan was to use moderate sedation / analgesia (conscious sedation). Immediately prior to administration of medications, the patient was re-assessed for adequacy to receive sedatives. The heart rate, respiratory rate, oxygen saturations, blood pressure, adequacy of pulmonary ventilation, and response to care were monitored throughout the procedure. The physical status of the patient was re-assessed after the procedure. After obtaining informed consent, the endoscope was passed under direct vision. Throughout the procedure, the patient's blood pressure, pulse, and oxygen saturations were monitored continuously. The pediatric colonoscope was introduced through the mouth, and advanced to the second part of duodenum. The upper GI endoscopy was accomplished without difficulty. The patient tolerated the procedure well. Scope In: 12:29:58 PM Scope Out: 12:39:17 PM Total Procedure Duration Time 0 hours 9 minutes 19 seconds Findings: The Z-line was irregular and was found 38 cm from the incisors. Biopsies were taken with a cold forceps for histology. Verification of patient identification for the specimen was done. Estimated blood loss was minimal. Diffuse moderately congested mucosa was found in the gastric body. Biopsies were taken with a cold forceps for histology. Verification of patient identification for the specimen was done. Estimated blood loss was minimal. A small submucosal mass with no bleeding was found in the duodenal bulb. Biopsies were taken with a cold forceps for histology. Verification of patient identification for the specimen was done. Estimated blood loss was minimal. Localized mild inflammation characterized by erosions and erythema was found in the second portion of the duodenum. Biopsies were taken with a cold forceps for histology. Verification of patient identification for the specimen was done. Estimated blood loss was minimal. Impression: - Z-line irregular, 38 cm from the incisors. Biopsied. - Congestive gastropathy. Biopsied. - Benign duodenal mass. Biopsied. - Chronic duodenitis. Biopsied. Recommendation: - Written discharge instructions were provided to the patient. - The signs and symptoms of potential delayed complications were discussed with the patient. - Patient has a contact number available for emergencies. - Return to normal activities tomorrow. - Resume previous diet. - Follow an antireflux regimen. - Continue present medications. Procedure Code(s): --- Professional --- 47899, Esophagogastroduodenoscopy, flexible, transoral; with biopsy, single or multiple CPT copyright 2017 [employer]. All rights reserved. The codes documented in this report are preliminary and upon operations research scientist review may be revised to meet current compliance requirements. Jules Rene DO 10/06/2021 1:03:26 PM This report has been signed electronically. Number of Addenda: 1 Note Initiated On: 10/06/2021 12:17 PM Addendum Number: 1 Addendum Date: 01/12/2022 6:05:32 AM MAC was used as sedation for this procedure. Jules Rene DO 01/12/2022 6:05:37 AM This report has been signed electronically.
--- NOTE | 2021-10-06 13:05 | OP.CCLET_ITS ---
01/12/2022 Levi Kent MD [address] [place] [address] [place] [address] Re : Upper GI endoscopy procedure for Isabel Sparks Dear Dr. Kent This procedure was performed on Wednesday, October 06, 2021. My impressions and recommendations are as follows: Impressions : - Z-line irregular, 38 cm from the incisors. Biopsied. - Congestive gastropathy. Biopsied. - Benign duodenal mass. Biopsied. - Chronic duodenitis. Biopsied. Recommendations : - Written discharge instructions were provided to the patient. - The signs and symptoms of potential delayed complications were discussed with the patient. - Patient has a contact number available for emergencies. - Return to normal activities tomorrow. - Resume previous diet. - Follow an antireflux regimen. - Continue present medications. My findings are described in the full procedure note, which is enclosed. If I can be of further assistance, please feel free to contact me at . Sincerely, Jules Rene, 10/06/2021 1:03:26 PM This report has been signed electronically.
--- NOTE | 2021-10-06 13:12 | OP.COLON_ITS ---
Patient Name: Isabel Sparks Procedure Date: 10/06/2021 12:40 PM Date of : 1985 Age: 36 Procedure: Colonoscopy Indications: Periumbilical abdominal pain, Pelvic pain, Clinically significant diarrhea of unexplained origin Providers: Jules Rene DO Referring MD: Levi Kent MD Medicines: Monitored Anesthesia Care Patient Profile: This is a 36 year old female. Refer to note in patient chart for documentation of history and physical. Patient has symptoms of chronic epigastric abdominal pain. Last Colonoscopy: none. The patient's first colonoscopy is today. Complications: No immediate complications. Procedure: Pre-Anesthesia Assessment: - Prior to the procedure, a History and Physical was performed, and patient medications and allergies were reviewed. The risks and benefits of the procedure and the sedation options and risks were discussed with the patient. All questions were answered and informed consent was obtained. Patient identification and proposed procedure were verified by the physician in the pre-procedure area. Mental Status Examination: alert and oriented. Airway Examination: normal oropharyngeal airway and neck mobility. Respiratory Examination: clear to auscultation. CV Examination: normal. Prophylactic Antibiotics: The patient does not require prophylactic antibiotics. Prior Anticoagulants: The patient has taken no previous anticoagulant or antiplatelet agents. ASA Grade Assessment: II - A patient with mild systemic disease. After reviewing the risks and benefits, the patient was deemed in satisfactory condition to undergo the procedure. The anesthesia plan was to use moderate sedation / analgesia (conscious sedation). Immediately prior to administration of medications, the patient was re-assessed for adequacy to receive sedatives. The heart rate, respiratory rate, oxygen saturations, blood pressure, adequacy of pulmonary ventilation, and response to care were monitored throughout the procedure. The physical status of the patient was re-assessed after the procedure. After I obtained informed consent, the scope was passed under direct vision. Throughout the procedure, the patient's blood pressure, pulse, and oxygen saturations were monitored continuously. The pediatric colonoscope was introduced through the anus and advanced to the terminal ileum. The colonoscopy was performed without difficulty. The patient tolerated the procedure well. The quality of the bowel preparation was good. Scope In: 12:43:05 PM Scope Withdrawal Time 0 hours 10 minutes 43 seconds Scope Out: 12:56:43 PM Total Procedure Duration Time 0 hours 13 minutes 38 seconds Findings: Hemorrhoids were found on perianal exam. A 5 mm polyp was found in the splenic flexure. The polyp was sessile. The polyp was removed with a cold snare. Resection and retrieval were complete. Verification of patient identification for the specimen was done. Estimated blood loss was minimal. An area of moderately congested mucosa was found in the recto-sigmoid colon, in the descending colon, in the transverse colon and in the cecum. Biopsies were taken with a cold forceps for histology. Verification of patient identification for the specimen was done. Estimated blood loss was minimal. The terminal ileum appeared normal. Biopsies were taken with a cold forceps for histology. Verification of patient identification for the specimen was done. Estimated blood loss was minimal. Impression: - Hemorrhoids found on perianal exam. - One 5 mm polyp at the splenic flexure, removed with a cold snare. Resected and retrieved. - Congested mucosa in the recto-sigmoid colon, in the descending colon, in the transverse colon and in the cecum. Biopsied. - The examined portion of the ileum was normal. Biopsied. Recommendation: - Discharge patient to home. - Resume previous diet. - Repeat colonoscopy in 5 years for surveillance based on pathology results. - Continue present medications. Procedure Code(s): --- Professional --- 14719, Colonoscopy, flexible; with removal of tumor(s), polyp(s), or other lesion(s) by snare technique 33095, 59, Colonoscopy, flexible; with biopsy, single or multiple CPT copyright 2017 [employer]. All rights reserved. The codes documented in this report are preliminary and upon inspector and adjuster golf club head review may be revised to meet current compliance requirements. Jules Rene DO 10/06/2021 1:11:54 PM This report has been signed electronically. Number of Addenda: 1 Note Initiated On: 10/06/2021 12:40 PM Addendum Number: 1 Addendum Date: 01/12/2022 6:05:45 AM MAC was used as sedation for this procedure. Jules Rene DO 01/12/2022 6:05:51 AM This report has been signed electronically.
--- NOTE | 2021-10-06 13:13 | OP.CCLET_ITS ---
01/12/2022 Levi Kent MD [address] [place] [address] [place] [address] Re : Colonoscopy procedure for Isabel Sparks Dear Dr. Kent This procedure was performed on Wednesday, October 06, 2021. My impressions and recommendations are as follows: Impressions : - Hemorrhoids found on perianal exam. - One 5 mm polyp at the splenic flexure, removed with a cold snare. Resected and retrieved. - Congested mucosa in the recto-sigmoid colon, in the descending colon, in the transverse colon and in the cecum. Biopsied. - The examined portion of the ileum was normal. Biopsied. Recommendations : - Discharge patient to home. - Resume previous diet. - Repeat colonoscopy in 5 years for surveillance based on pathology results. - Continue present medications. My findings are described in the full procedure note, which is enclosed. If I can be of further assistance, please feel free to contact me at . Sincerely, Jules Rene, 10/06/2021 1:11:54 PM This report has been signed electronically.
== END 2021-10-06 14:14 | disposition home or self-care (01) ==
LOC: EN 11:03 → AC 11:04
PROVIDERS: PCP Internal Medicine; Referring Provider Internal Medicine; Visit Provider Internal Medicine Gastroenterology
PROC: 0DJD8ZZ Inspection of Lower Intestinal Tract, Via Natural or Artificial Opening Endoscopic (ICD-10-PCS; CPT 45378; principal; 2021-10-06 11:55)
DX: D12.3 Benign neoplasm of transverse colon (principal); K31.A0 Gastric intestinal metaplasia, unspecified; K29.80 Duodenitis without bleeding; K31.89 Other diseases of stomach and duodenum; K63.89 Other specified diseases of intestine; K29.50 Unspecified chronic gastritis without bleeding; R63.4 Abnormal weight loss; F17.210 Nicotine dependence, cigarettes, uncomplicated; K64.9 Unspecified hemorrhoids; E89.0 Postprocedural hypothyroidism; G89.29 Other chronic pain; Z79.899 Other long term (current) drug therapy; Z86.16 Personal history of COVID-19; Z68.25 Body mass index [BMI] 25.0-25.9, adult
CPT/HCPCS: 45385; 45380; 43239; 88305; 88342; J7120; J2405

== ENCOUNTER 2021-10-13 17:58 | Emergency (ER) | payer MEDICAID, SELFPAY ==
[2021-10-13 17:59] VITALS: BP 116/74; PULSE 72; RESP 14; TEMP 37; O2SAT 100; BMI 25.0
[2021-10-13] MEDS: Dicyclomine 10 MG Capsule 20 MG PO (19:50)
[2021-10-13] MEDS: Metoclopramide 10 MG/2 ML Vial IV (19:50)
[2021-10-13 20:03] LABS: Absolute Lymphocyte Count 3.57 X10^3/uL (0.83-4.51); Absolute Neutrophil Count 4.8 X10^3/uL (2.0-7.7); Basophil# 0.06 X10^3/uL; Basophil% 0.7 % (0-1); Eosinophil# 0.15 X10^3/uL; Eosinophils% 1.6 % (0-5); Hematocrit 40.2 % (37-47); Hemoglobin 13.4 g/dL (12.0-15.0); Lymphocyte # 3.57 X10^3/ul (0.83-4.51); Lymphocyte % 38.7 % (19-41); Mean Corp Hgb Conc 33.3 g/dL (32-36); Mean Corpuscular Hgb 29.8 pg (27.0-32.0); Mean Corpuscular Volume 89.5 fL (81-99); Mean Platelet Vol. 11.4 fl (6.2-12.0); Monocyte# 0.66 X10^3/uL; Monocyte% 7.2 % (0-10); NRBC Flagged by Analyzer 0 % (0-5); Neutrophil # 4.76 X10^3/uL (2.7-7.7); Neutrophil % 51.5 % (47-70); Platelet Count 300 K/mm3 (150-450); RBC Distribution Width CV 12.2 % (11.6-14.6); RBC Distribution Width SD 40.2 fl (35.1-43.9); Red Blood Count 4.49 M/mm3 (4.2-5.4); White Blood Count 9.2 K/mm3 (4.4-11.0)
--- NOTE | 2021-10-13 20:04 | RAD_ITS ---
EXAM: XR ABDOMEN, 2 VIEWS AND XR CHEST, 1 VIEW CLINICAL INDICATION: Pain TECHNIQUE: Frontal view of the chest, frontal view of the abdomen/pelvis and upright or decubitus view of the abdomen. This report was created using Ear[employer] report generation technology. COMPARISON: None. FINDINGS: CHEST: LUNGS AND PLEURAL SPACES: Unremarkable. No consolidation or edema. No pneumothorax. No effusion. HEART: Unremarkable. Cardiac silhouette not enlarged. MEDIASTINUM: Central airways and mediastinal contour are unremarkable. ABDOMEN: INTRAPERITONEAL SPACE: No free air. GASTROINTESTINAL TRACT: Unremarkable. Non-obstructive. No bowel or stomach distention. ORGANS: Unremarkable as visualized. No organomegaly. No abnormal calcifications. TUBES, LINES AND DEVICES: None. BONES/JOINTS: No acute findings. SOFT TISSUES: No acute findings. RAD/Acute Abdomen Inc Chest IMPRESSION: Negative chest and abdominal series. Electronically Signed: Skyler Eaton MD at 20:17 EDT Reading Location ID and State: [facility] / [place] , Service support ,
[2021-10-13 20:24] LABS: ALB/GLOB Ratio 1.2 RATIO (0.9-2.4); AST(SGOT) 12 U/L (15-37); Alanine Aminotransfer ALT/SGPT 20 U/L (13-56); Albumin, Serum 3.9 g/dL (3.2-5.0); Alkaline Phosphatase 41 U/L (45-117); Anion Gap 7 (5-15); BUN 12 mg/dL (7-18); BUN/Creat Ratio 11.8 RATIO (10-20); Calcium,Total 8.6 mg/dL (8.5-10.1); Chloride 105 mmol/L (98-107); Creatinine, Serum 1.02 mg/dL (0.55-1.02); EST Glomerular Filtration Rate 64 mL/min (>60); Est Glom Filt Rate - Afr Amer 78 mL/min (>60); Estimated Creatinine Clearance 80.87 ml/min; Globulin 3.3 g/dL (2.2-4.2); Glucose 89 mg/dL (74-106); Lipase 177 U/L (73-393); Potassium 3.8 mmol/L (3.5-5.1); Protein, Total 7.2 g/dL (6.4-8.2); Sodium Level 140 mmol/L (136-145)
--- NOTE | 2021-10-13 22:15 | ED.VIS.GI ---
HPI HPI - GI History of Present Illness Chief Complaint: Abd Pain Detail of Chief Complaint: Predominantly right upper quadrant abdominal pain after EGD and colonoscopy Informant: patient Abdominal Pain/Flank Pain Onset: Days Context: Sudden Onset Timing: Continuous and Waxes and wanes Quality: Aching Location: RUQ Current Severity: Mild Maximum Severity: Moderate Worsened by: Food (Liquids or solids) Relieved by: Nothing Nausea/Vomiting/Emesis GI Symptom: Positive for Nausea; Negative for Vomiting Onset: Days Diarrhea/Melena/Hematochezia GI Symptom: Negative for Diarrhea, Melena or Hematochezia Associated Symptoms Associated Symptoms: Negative for Dysuria, Frequency, Hematuria or Urgency Narrative Narrative: Patient is a 36-year-old woman who underwent EGD and colonoscopy Dr. Rene. She is awaiting biopsy results. She states this is different than what she experienced after being scoped 3 years ago. She underwent endoscopy to evaluate her abdominal discomfort. Prior similar symptoms: No Recent Illness/Hospitalization: Yes PFSH PFSH Medical History Abdominal pain Abnormal urinalysis Abscess of left axilla Annular tear of lumbar disc Anxiety Anxiety Arthritis Asthma Carpal tunnel syndrome Chest pain Chronic constipation Chronic pain Degenerative disc disease Degenerative disc disease at L5-S1 level Depression Generalized anxiety disorder with panic attacks H/O breast lump Hiatal hernia Hidradenitis suppurativa History of COVID-19 History of hiatal hernia History of kidney stones History of steroid therapy Hx of cystic acne Hx of hypoglycemia Hypocalcemia Hypocalcemia syndrome Hypoglycemia Hypokalemia Hypothyroidism Injury of head and neck Irregular heart beat Leg cramps Pelvic pain Polycystic ovaries Post-surgical hypoparathyroidism Postoperative hypothyroidism Postsurgical hypoparathyroidism Seasonal allergies Shortness of breath on exertion Smoker Syncope Tinea pedis of both feet TMJ (temporomandibular joint syndrome) Upper respiratory infection Ureteral calculus, right Urinary tract infection Vertigo Vitamin deficiency Wears dentures Home Medications acetaminophen 325 mg capsule (Tylenol) 650 mg PO ONCE PRN Pain 12/04/20 [History Last Taken Unknown] hydrocortisone 1 % topical cream (Preparation H Hydrocortisone) 1 applic topical TID PRN HEMMROIDS 06/05/21 [History Last Taken Unknown] calcitriol 0.5 mcg capsule 1.5 mcg PO DINNER #90 caps 06/14/21 [Rx Last Taken 06/30/21] levothyroxine 125 mcg tablet 125 mcg PO DAILY #90 tabs 06/14/21 [Rx Last Taken 10/06/21 07:00] ondansetron 4 mg disintegrating tablet 4 mg PO Q6H PRN nausea and vomiting #10 tabs 06/29/21 [Rx Last Taken 06/30/21] tizanidine 4 mg tablet (Zanaflex) 4 mg PO TID PRN muscle spasticity 10/01/21 [History Last Taken Unknown] pantoprazole 40 mg tablet,delayed release (Protonix) 40 mg PO BID #60 tabs 10/09/21 [Rx Last Taken Unknown] Allergy/AdvReac Type Severity Reaction Status Date / Time codeine Allergy can't Verified 10/13/21 18:02 sleep; itching fluoxetine [From Prozac] Allergy causes Verified 10/13/21 18:02 manic state naproxen Allergy nose bleed Verified 10/13/21 18:02 Family History Father Alcoholism Mother Anemia Depression Hypertension Hyperlipemia Diabetes Grandfather Diabetes Myocardial infarction Grandmother Breast cancer Diabetes Surgical History H/O thyroidectomy History of cholecystectomy History of incision and drainage History of partial hysterectomy History of thyroidectomy History of total hysterectomy S/P hysterectomy Social History (Updated 10/13/21 @ 22:[address] Ke Del Real MD) household members: none Smoking Status: Current every day smoker tobacco type: cigarettes Tobacco: How many years used: 20 alcohol intake: never substance use type: does not use what type of physical activity do you participate in: none ROS ROS ED Constitutional Constitutional ED: Denies chills, fever(s), subjective, sweats or weight loss ENT ENT ED: Denies ear pain, rhinorrhea or sore throat Cardiovascular Cardiovascular: Denies chest pain, orthopnea, palpitations, paroxysmal nocturnal dyspnea or racing heartbeat Respiratory/Chest Respiratory/Chest: Denies cough, dyspnea, dyspnea on exertion, orthopnea or paroxysmal nocturnal dyspnea Gastrointestinal Gastrointestinal: Reports abdominal pain and nausea; Denies constipation, diarrhea, melena or vomiting Genitourinary Genitourinary ED: Denies dysuria, hematuria or other Musculoskeletal Musculoskeletal: Denies arthralgias, back pain, myalgias or neck pain Neurologic Neurologic: Denies headache(s) or weakness Psychiatric Psychiatric: Denies anxiety, depression or suicidal thoughts Endocrine Endocrinology: Denies polydipsia, polyphagia or polyuria Hematologic/Lymphatic Hematologic/Lymphatic: Denies easy bleeding, easy bruising or lymphadenopathy EXAM Physical Exam Const Vital Signs: 10/13/21 17:59 Temperature 98.6 F Temperature Source Temporal Pulse Rate 72 Respiratory Rate 14 Blood Pressure 116/74 Blood Pressure Mean 88 Pulse Ox 100 Oxygen Delivery Method Room Air Positive well nourished and well developed General Appearance ED: well developed and NAD; Negative for pallor HEENT Reports moist mucous membranes HEENT Narrative: Ears normal. Nares patent. Uvula midline. There is no erythema or exudate. normocephalic and atraumatic Eyes PERRL and EOMs intact bilaterally Eyes Narrative: There is no scleral icterus. Conjunctive is pink. Neck no lymphadenopathy, supple and no JVD Resp normal respiratory effort and clear to auscultation bilaterally Cardio regular rate, regular rhythm, S1 normal heart sound, S2 normal heart sound and no murmurs GI non-tender, non-distended and no masses Palpation: soft Back/Spine no CVA tenderness Cervical Spine: Negative for cervical spine tenderness Thoracic Spine / Upper Back: Negative for thoracic spinal tenderness Lumbar Spine / Lower Back: Negative for lumbar spinal tenderness Neuro CN's II-XII intact bilaterally, moves all extremities and no sensory deficits noted Sensorium / Orientation: alert Motor Exam: strength 5/5 throughout Psych thought process normal Psych Narrative: Affect and mood are flat to depressed Skin General Skin Exam: Negative for jaundice or pallor Lesions: no lesions Rashes: no rashes MDM MDM MDM Narrative Medical decision making narrative: Clinically patient has a benign abdomen. Abdominal series was obtained since biopsies were obtained 6 weeks ago to evaluate for pneumoperitoneum. This or obstipation. Blood work was obtained to assess white count, H&H renal function electrolytes etc. I was informed the patient left prior to me performing exit interview and getting her home-going instructions. Lab Data Attestation: I reviewed the patient's lab results. Lab results narrative: Laboratory results are all normal. Labs: Laboratory Results - last 24 hr 10/13/21 10/13/21 19:50 19:50 WBC 9.2 RBC 4.49 Hgb 13.4 Hct 40.2 MCV 89.5 MCH 29.8 MCHC 33.3 RDW Std Deviation 40.2 RDW Coeff of Jenn 12.2 Plt Count 300 MPV 11.4 Immature Gran % (Auto) 0.300 Neut % (Auto) 51.5 Lymph % (Auto) 38.7 [place] % (Auto) 7.2 Eos % (Auto) 1.6 Baso % (Auto) 0.7 Absolute Neuts (auto) 4.8 Absolute Lymphs (auto) 3.57 Nucleated RBC % 0 Sodium 140 Potassium 3.8 Chloride 105 Carbon Dioxide 28.0 Anion Gap 7 BUN 12 Creatinine 1.02 Estim Creat Clear Calc 80.87 Est GFR (MDRD) Af Amer 78 Est GFR (MDRD) Non-Af 64 BUN/Creatinine Ratio 11.8 Glucose 89 Calcium 8.6 Total Bilirubin 0.30 AST 12 L ALT 20 Alkaline Phosphatase 41 L Total Protein 7.2 Albumin 3.9 Globulin 3.3 Albumin/Globulin Ratio 1.2 Lipase 177 Radiography Diagnostic Testing: Clinical Impression(s) from Imaging Studies Acute Abdomen Series 10/13/21 20:04 IMPRESSION: Negative chest and abdominal series. Electronically Signed: Skyler Eaton MD at 20:17 EDT , Three-view nominal series is negative for pneumoperitoneum. Cardiac silhouette and size normal. Perihilar region normal. Lung parenchyma normal. Osseous structures are normal. Liver size appears normal. Discharge Plan Triage Chief Complaint: Abd Pain ED Provider: Ke Del Real Dx/Rx/DC Orders Clinical Impression: Abdominal pain of unknown etiology, Nausea Instructions: ED Abdominal Pain Unkn Cause Fem Prescriptions: No Action acetaminophen [Tylenol] 325 mg capsule 650 mg PO ONCE PRN (Reason: Pain) hydrocortisone [Preparation H Hydrocortisone] 1 % cream 1 applic topical TID PRN (Reason: HEMMROIDS) tizanidine [Zanaflex] 4 mg tablet 4 mg PO TID PRN (Reason: muscle spasticity) ondansetron 4 mg tablet,disintegrating 4 mg PO Q6H PRN (Reason: nausea and vomiting) Qty: 10 0RF calcitriol 0.5 mcg capsule 1.5 mcg PO DINNER Qty: 90 6RF levothyroxine 125 mcg tablet 125 mcg PO DAILY Qty: 90 3RF pantoprazole [Protonix] 40 mg tablet,delayed release (DR/EC) 40 mg PO BID Qty: 60 2RF Rx Instructions: take two times a day for eight weeks then once a week Primary Care Provider: Levi Kent Referrals: Levi Kent MD [Primary Care Provider] - As Needed Friend,DO Jules [STAFF PHYSICIAN] - Keep Jennifer appointment Disposition Disposition: Home, Self Care
--- NOTE | 2021-10-13 22:19 | ED.RN ---
Patient hit call light requesting a nurse. This RN walks into patients room. Patient requesting IV be taken out so patient can leave. Patient upset about being here for 2 hours. Rn explained to patient Dr. Del Real is having IT problems and he is working on her discharge paperwork at this time. Rn also explained to patient that ER is very busy at this time. Patient states she wants IV out and will follow up with her PCP tomorrow. Dr. Del Real notified patient has left the department.
== END 2021-10-13 22:23 | disposition home or self-care (01) ==
PROVIDERS: Emergency Provider Emergency Medicine; PCP Internal Medicine; Visit Provider Emergency Medicine
DX: R10.11 Right upper quadrant pain (principal); R11.0 Nausea; F17.210 Nicotine dependence, cigarettes, uncomplicated; Z86.16 Personal history of COVID-19
CPT/HCPCS: 74022; 80053; 83690; 85025; 96374; 99283; A4216

== ENCOUNTER → 2021-10-15 | Outpatient (CLI) | payer MEDICAID, SELFPAY ==
[2021-10-15 12:43] LABS: T4 Free Direct 1.44 ng/dL (0.76-1.46); Thyroid Stim Hormone (TSH) 3.05 uIU/mL (0.358-3.74)
== END | disposition home or self-care (01) ==
PROVIDERS: PCP Internal Medicine; Visit Provider Nurse Practitioner Family
DX: E89.0 Postprocedural hypothyroidism (principal)
CPT/HCPCS: 36415; 84439; 84443

== ENCOUNTER → 2021-10-20 | Outpatient (CLI) | payer MEDICAID, SELFPAY ==
[2021-10-20 11:31] LABS: LDH 183 U/L (84-246)
[2021-10-23 09:08] LABS: Albumin 4.2 g/dL (2.9-4.4); Alpha-1-Globulins 0.2 g/dL (0.0-0.4); Alpha-2-Globulins 0.7 g/dL (0.4-1.0); Cytoplasmic Ab (C-ANCA) <1:20 titer (Neg:<1:20); Gamma Globulin 0.8 g/dL (0.4-1.8); Immunoglobulin A 102 mg/dL (87-352); Immunoglobulin E 104 IU/mL (6-495); Immunoglobulin G 855 mg/dL (586-1602); Immunoglobulin M 61 mg/dL (26-217); PROEL- TOTAL PROTEIN 6.9 g/dL (6.0-8.5)
[2021-10-24 23:57] LABS: Carbohydrate Ag 19-9 2261 4 U/mL (0-35); Carcinoembryonic Antigen 2.1 ng/mL (0.0-4.7); Gastrin, Serum 40 pg/mL (0-115); Perinuclear Ab (P-ANCA) <1:20 titer (Neg:<1:20)
== END | disposition home or self-care (01) ==
LOC: LABSPEC 09:54 → LAB 09:56
PROVIDERS: PCP Internal Medicine; Visit Provider Internal Medicine Gastroenterology
DX: R63.4 Abnormal weight loss (principal); K86.1 Other chronic pancreatitis; R14.0 Abdominal distension (gaseous); R10.9 Unspecified abdominal pain
CPT/HCPCS: 36415; 82378; 82784; 82785; 82941; 83615; 84165; 86256; 86301; 86334

== ENCOUNTER → 2021-10-22 | Outpatient (CLI) | payer MEDICAID, SELFPAY ==
[2021-10-27 14:20] LABS: Calprotectin, Stool <16 ug/g (0-120)
[2021-10-29 12:56] LABS: Pancreatic Elastase, Fecal 370 (>200)
== END | disposition home or self-care (01) ==
LOC: LABSPEC 07:31
PROVIDERS: PCP Internal Medicine; Referring Provider Internal Medicine Gastroenterology; Visit Provider Internal Medicine Gastroenterology
DX: K86.1 Other chronic pancreatitis (principal)
CPT/HCPCS: 82653; 83993

== ENCOUNTER 2021-10-26 21:54 | Emergency (ER) | payer MEDICAID, SELFPAY ==
[2021-10-26 21:55] VITALS: BP 131/81; PULSE 105; RESP 18; TEMP 36.8; O2SAT 99; BMI 23.9
== END 2021-10-26 22:37 | disposition left against medical advice (07) ==
LOC: ED 10-27 00:01
PROVIDERS: PCP Internal Medicine
DX: Z53.21 Procedure and treatment not carried out due to patient leaving prior to being seen by health care provider (principal)

== ENCOUNTER → 2021-10-29 | Outpatient (CLI) | payer MEDICAID, SELFPAY ==
[2021-11-10 16:13] LABS: 5-HIAA, 24UR 3.2 mg/24 hr (0.0-14.9); 5-HIAA, UR 4.9 mg/L (Undefined)
== END | disposition home or self-care (01) ==
LOC: LABSPEC 07:35
PROVIDERS: PCP Internal Medicine; Referring Provider Internal Medicine Gastroenterology; Visit Provider Internal Medicine Gastroenterology
DX: K86.1 Other chronic pancreatitis (principal)
CPT/HCPCS: 81050; 83497

== ENCOUNTER → 2021-11-05 | Outpatient (CLI) | payer MEDICAID, SELFPAY ==
--- NOTE | 2021-11-05 09:44 | US_ITS ---
STUDY: ABDOMINAL ULTRASOUND REASON FOR EXAM: Female, 36 years old. Abdominal pain, diarrhea TECHNIQUE: Transabdominal ultrasound was performed with real-time and static rangel scale imaging. TECHNICAL QUALITY: Adequate. COMPARISON: Comparison is made with prior study dated 04/25/2021. FINDINGS: Liver: The liver is enlarged and measures 17.2 cm. There is increased echogenicity consistent with fatty infiltration. The bile ducts are within normal limits. There is hepatic color flow. The direction of portal flow is hepatopetal. There is no demonstrated mass lesion. Portal vein measurement: Gallbladder: The patient is status post cholecystectomy. Common Bile Duct (C.B.D.): The common bile duct measures 1.6 mm. Pancreas: Normal size of the head, body and tail of the pancreas. There is increased echogenicity of the pancreas. There is no demonstrated pancreatic mass or cyst. Spleen: Normal size of the spleen. The spleen measures 9.9 cm x 9 cm x 5 cm. Right Kidney: Normal size of the right kidney. The right kidney measures 10.6 cm x 5.8 cm x 5.3 cm. Normal renal cortex. The right cortex measures 1.1 cm. There is no demonstrated renal mass or cyst. There is no right hydronephrosis. Left Kidney: Normal size of the left kidney. The left kidney measures 10.7 cm x 4.3 cm x 4.4 cm. Normal renal cortex. The left cortex measures 1.4 cm. There is no demonstrated renal mass or cyst. There is no left hydronephrosis. Aorta: Unremarkable I.V.C.: The IVC is patent. There is no ascites. US/Abdomen Complete IMPRESSION: Hepatomegaly and diffuse fatty infiltration of the liver. Status post cholecystectomy. Electronically Signed: Dimitris Stewart MD at 14:53 EDT ,
== END | disposition home or self-care (01) ==
LOC: US 09:43
PROVIDERS: PCP Internal Medicine; Referring Provider Internal Medicine Gastroenterology; Visit Provider Internal Medicine Gastroenterology
DX: R10.9 Unspecified abdominal pain (principal); R19.7 Diarrhea, unspecified
CPT/HCPCS: 76700

== ENCOUNTER → 2021-11-24 | Outpatient (CLI) | payer MEDICAID, SELFPAY ==
[2021-11-24 14:18] LABS: Mucous, Urine 0 SEEN /hpf (<or=2+); Red Blood Cells-Urine 0 SEEN /hpf (0-5); White Blood Cells 0 SEEN /hpf (0-5)
[2021-11-24 15:09] LABS: Color, Urine Yellow (Yellow); Glucose, Dipstick Normal (Normal); Ketone-Dipstick Negative (Negative); Leukocyte Esterase-Dipstick Negative /ul (Negative); Nitrite-Dipstick Negative (Negative); Occult Blood-Urine 25 /ul (Negative); Protein-Dipstick Negative (Negative); Specific Gravity, Urine 1.025 (1.002-1.030); Urine Bilirubin Dipstick Negative (Negative); Urine Clarity Sl. Cloudy (Clear); Urine Urobilinogen Normal (Normal)
[2021-11-24 15:21] LABS: Bacteria 1+ /hpf (None Seen); Squamous Epithelial Cells - UA 0-5 SEEN /hpf (5-10)
== END | disposition home or self-care (01) ==
PROVIDERS: PCP Internal Medicine; Referring Provider Internal Medicine; Visit Provider Internal Medicine
DX: R10.2 Pelvic and perineal pain (principal); R35.0 Frequency of micturition
CPT/HCPCS: 81001; 87086; 87088

== ENCOUNTER → 2021-11-25 | Outpatient (CLI) | payer MEDICAID, SELFPAY ==
--- NOTE | 2021-11-25 13:40 | CT_ITS ---
INDICATION: Right Flank and Groin pain EXAMINATION: CT ABDOMEN AND PELVIS WITHOUT CONTRAST - CT Abdomen And Pelvis W/O Contrast Injection TECHNIQUE: Helically acquired images were obtained of the abdomen and pelvis without oral or IV contrast. A radiation dose optimization technique was used for this scan. IV Contrast dosage and agent: None. Oral contrast: None. COMPARISON: 06/29/2021.. FINDINGS: LOWER CHEST: Lung bases are clear. No cardiomegaly or pericardial effusion. LIVER: Homogeneous. No focal mass. The liver is prominent in size measuring 26.1 x 16.7 x 13.2 cm in maximal diameters.. No evidence of intrahepatic biliary dilatation is seen. GALLBLADDER AND BILIARY TREE: Surgical clip visualized in the gallbladder fossa. No intra- or extrahepatic biliary ductal dilation. PANCREAS: No focal cystic or solid mass. SPLEEN: Normal size without focal cystic or solid mass. ADRENAL GLANDS: No nodules. KIDNEYS AND URETERS: 0.4 cm nonobstructing calcification visualized in the midpole of the right kidney, no evidence of hydronephrosis or hydroureter is seen bilaterally. No evidence of renal masses or cysts. Normal renal size and position. PERITONEUM: No ascites or free air. No other fluid collection. BOWEL: Surgical clips visualized in the right lower quadrant.. No stomach or bowel distension. No focal inflammatory change. Scattered diverticular disease no evidence of acute diverticulitis. LYMPH NODES: Bilateral inguinal lymphadenopathy is seen.. VESSELS: Aorta is non-dilated. URINARY BLADDER: The urinary bladder is decompressed. REPRODUCTIVE ORGANS: The uterus is surgically absent. The right ovary is prominent in size measuring 4.4 x 2.7 x 3.0 cm with a prominent 3.0 x 2.3 cm cyst visualized, mild adjacent stranding is visualized. A subtle less than 0.2 cm calcification is visualized in the left ovary which is also slightly prominent in size but no evidence of prominent left ovarian cysts is seen. ABDOMINAL WALL: No discrete abdominal or pelvic wall hernia. BONES: No lytic or blastic abnormality. CT/Abdomen/Pelvis without Cont IMPRESSION: The liver is prominent in size, no evidence of hepatic masses. Right renal nonobstructing stone is seen. No evidence of obstructive uropathy. Mild prominence of bilateral ovaries, a 3 cm cyst is visualized in the right ovary, no significant stranding of the adjacent fat planes of the common clinical correlation. Bilateral inguinal lymphadenopathy. Electronically Signed: David Lin MD at 14:31 EDT ,
== END | disposition home or self-care (01) ==
LOC: CT 13:40
PROVIDERS: PCP Internal Medicine; Referring Provider Internal Medicine; Visit Provider Internal Medicine
DX: R10.2 Pelvic and perineal pain (principal); R35.0 Frequency of micturition; R10.9 Unspecified abdominal pain
CPT/HCPCS: 74176

== ENCOUNTER → 2021-11-27 | Outpatient (CLI) | payer MEDICAID, SELFPAY ==
[2021-11-27 19:06] LABS: HIV - WCH Non-Reactive (Nonreactive); Hepatitis B Surface Antigen Non-Reactive (Nonreactive); Hepatitis C Antibody Non-Reactive (Nonreactive); Syphilis Antibodies Non-reactive
[2021-11-30 22:06] LABS: Chlamydia By Nucleic Acid AMP Negative (Negative)
[2021-12-01 07:59] LABS: Gonococcus By Nucleic Acid AMP Negative (Negative)
== END | disposition home or self-care (01) ==
LOC: WOBLAB 16:51
PROVIDERS: PCP Internal Medicine; Visit Provider Student in an Organized Health Care Education/Training Program
DX: R30.0 Dysuria (principal); Z11.3 Encounter for screening for infections with a predominantly sexual mode of transmission
CPT/HCPCS: 86703; 86780; 86803; 87086; 87088; 87340; 87491; 87591

== ENCOUNTER → 2021-12-08 | Outpatient (CLI) | payer MEDICAID, SELFPAY ==
[2021-12-08 12:53] LABS: LDH 154 U/L (84-246)
[2021-12-10 15:26] LABS: Carbohydrate Ag 19-9 2261 4 U/mL (0-35); Carcinoembryonic Antigen 1.9 ng/mL (0.0-4.7)
== END | disposition home or self-care (01) ==
LOC: WOBLAB 11:03
PROVIDERS: PCP Internal Medicine; Visit Provider Student in an Organized Health Care Education/Training Program
DX: N83.202 Unspecified ovarian cyst, left side (principal)
CPT/HCPCS: 36415; 82378; 83615; 86301; 86304

== ENCOUNTER 2021-12-09 18:18 | Emergency (ER) | payer MEDICAID, SELFPAY ==
[2021-12-09 18:18] VITALS: BP 126/80; PULSE 98; RESP 17; TEMP 35.9; O2SAT 99; BMI 23.6
--- NOTE | 2021-12-09 18:38 | EDS_ITS ---
HPI History of Present Illness Chief Complaint: Flank Pain Informant: patient Narrative Narrative: Presents for concerns for worsening kidney stones. Diagnosed with a 4 mm stone couple weeks ago. Outpatient studies. Reports told to monitor symptoms she is followed by Dr. Sorensen. Has planned procedure tomorrow. Was told if symptoms worsen go to the ED. Symptoms worsening today. Increasing nausea. No vomiting. Zofran taken over 4 hours ago. No other medications taken. She has not given any medicines by her PCP for pain. Tolerated Toradol and morphine. She states mild dysuria and frequency of come and go. No fevers. Kidney stone in June requiring intervention. Denies history of gastric ulcers or kidney injury. Prior similar symptoms: Yes [facility] Medical History (Updated 12/10/21 @ 13:[address] Tiana Sorensen MD) Abdominal pain Abnormal urinalysis Abscess of left axilla Annular tear of lumbar disc Anxiety Anxiety Arthritis Asthma Cardiology follow-up encounter Carpal tunnel syndrome Chest pain Chronic constipation Chronic pain Degenerative disc disease Degenerative disc disease at L5-S1 level Depression Generalized anxiety disorder with panic attacks H/O breast lump Hiatal hernia Hidradenitis suppurativa History of COVID-19 History of hiatal hernia History of Holter monitoring History of kidney stones History of steroid therapy Hx of cystic acne Hx of hypoglycemia Hypocalcemia Hypocalcemia syndrome Hypoglycemia Hypokalemia Hypothyroidism Injury of head and neck Irregular heart beat Leg cramps Pelvic pain Polycystic ovaries Post-surgical hypoparathyroidism Postoperative hypothyroidism Postsurgical hypoparathyroidism Right flank pain Right renal stone Seasonal allergies Shortness of breath on exertion Smoker Suprapubic discomfort Syncope Tinea pedis of both feet TMJ (temporomandibular joint syndrome) Upper respiratory infection Ureteral calculus, right Urinary frequency Urinary tract infection Vertigo Vitamin deficiency Wears dentures Home Medications acetaminophen 325 mg capsule (Tylenol) 650 mg PO ONCE PRN Pain 12/04/20 [History Last Taken Unknown] hydrocortisone 1 % topical cream (Preparation H Hydrocortisone) 1 applic topical TID PRN HEMMROIDS 06/05/21 [History Last Taken Unknown] calcitriol 0.5 mcg capsule 1.5 mcg PO DINNER #90 caps 06/14/21 [Rx Last Taken 06/30/21] levothyroxine 125 mcg tablet 125 mcg PO DAILY #90 tabs 06/14/21 [Rx Last Taken 12/10/21] ondansetron 4 mg disintegrating tablet 4 mg PO Q6H PRN nausea and vomiting #10 tabs 06/29/21 [Rx Last Taken 12/10/21] tizanidine 4 mg tablet (Zanaflex) 4 mg PO TID PRN muscle spasticity 10/01/21 [History Last Taken Unknown] dicyclomine 20 mg tablet 20 mg PO PRN PRN IBS 11/24/21 [History Last Taken Unknown] cholecalciferol (vitamin D3) 25 mcg (1,000 unit) capsule (Vitamin D3) 25 mcg PO QWEEK 12/07/21 [History Last Taken Unknown] oxycodone-acetaminophen 5 mg-325 mg tablet (Percocet) 1 tab PO Q6H PRN pain 3 days #12 tabs 12/09/21 [Rx Last Taken Unknown] cephalexin 500 mg capsule 500 mg PO Q12 post-operative 3 days #6 CAPSULES 12/10/21 [Rx Last Taken Unknown] Allergy/AdvReac Type Severity Reaction Status Date / Time codeine Allergy can't Verified 12/10/21 12:43 sleep; itching fluoxetine [From Prozac] Allergy causes Verified 12/10/21 12:43 manic state naproxen Allergy nose bleed Verified 12/10/21 12:43 Family History Father Alcoholism Mother Anemia Depression Hypertension Hyperlipemia Diabetes Grandfather Diabetes Myocardial infarction Grandmother Breast cancer Diabetes Surgical History H/O thyroidectomy History of cholecystectomy History of esophagogastroduodenoscopy (EGD) History of incision and drainage History of partial hysterectomy History of thyroidectomy History of total hysterectomy S/P hysterectomy Social History household members: none Smoking Status: Current every day smoker tobacco type: cigarettes Tobacco: How many years used: 20 alcohol intake: never substance use type: does not use what type of physical activity do you participate in: none ROS ROS ED Constitutional Constitutional ED: Denies chills, fever(s) or sweats Eyes Eyes: Denies change in vision ENT ENT ED: Denies dysphagia or sore throat Cardiovascular Cardiovascular: Denies chest pain, leg edema, palpitations or racing heartbeat Respiratory/Chest Respiratory/Chest: Denies cough, dyspnea or dyspnea on exertion Gastrointestinal Gastrointestinal: Reports abdominal pain and nausea; Denies diarrhea or vomiting Genitourinary Genitourinary ED: Reports dysuria and urinary frequency; Denies hematuria Musculoskeletal Musculoskeletal: Reports back pain; Denies extremity pain or neck pain Integumentary Denies rash or wounds Neurologic Neurologic: Denies headache(s), paresthesias or weakness EXAM Physical Exam Const Vital Signs: 12/09/21 22:02 12/09/21 22:45 Pulse Rate 71 Respiratory Rate 16 16 Blood Pressure 96/60 Blood Pressure Mean 72 Pulse Ox 96 Oxygen Delivery Method Room Air Positive well nourished and well developed Constitutional Narrative: Uncomfortable, nontoxic General Appearance ED: well developed HEENT Reports moist mucous membranes normocephalic and atraumatic Eyes PERRL, EOMs intact bilaterally and conjunctivae normal General Eye ED: Yes normal appearance of both eyes Neck no lymphadenopathy and supple General: Negative for tenderness Chest Wall Chest: Negative for tenderness Resp normal respiratory effort and normal air movement Effort and Inspection: symmetric chest movement; Negative for respiratory distress Cardio regular rate, regular rhythm and no murmurs Peripheral Pulses: pulses 2+ throughout GI normal to inspection, nondistended, normoactive bowel sounds GI Narrative: Negative Gallardo's or McBurney's tenderness. Palpation: Negative for guarding or rebound tenderness present Back/Spine no CVA tenderness and no thoracic nor lumbar tenderness Extremity normal to inspection General Extremety ED: Negative for edema or tenderness General Extremity: Negative for edema Neuro oriented x3 and no sensory deficits noted Sensorium / Orientation: awake and alert Skin no rashes or lesions noted and no wounds MDM MDM MDM Narrative Medical decision making narrative: Patient presenting with renal colic symptoms in the right side. She has a plan for lithotripsy tomorrow. With her pain IV is placed given morphine Toradol and Zofran. Labs stable creatinine 0.92 white count 8.2. Urine noted only leukocytes. Culture sent. She required additional morphine to stabilize. She given oxycodone. Symptoms are stable. I did evaluate records from her CT 2 weeks ago had a 4 mm nephrolithiasis. with her symptoms concerning for moving down her groin, which would change her planned procedure for lithotripsy tomorrow I spoke with her urologist Dr. Sorensen, who requested CT in order for surgical planning. This was obtained. On my review continue nephrolithiasis with no distal obstructive uropathy. Pending final read. However patient wanted to leave prior to this. I did be discussed with urology and updated on my review. Prescription with meds to beds with oxycodone's for home. She has Zofran at home. She will maintain her appointment tomorrow for planned lithotripsy. Abdomen soft on reevaluation. Final read from neurology confirms nephrolithiasis. Lab Data Labs: Laboratory Results - last 24 hr 12/09/21 12/09/21 12/09/21 18:55 18:55 18:55 WBC 8.2 RBC 4.65 Hgb 13.9 Hct 41.7 MCV 89.7 MCH 29.9 MCHC 33.3 RDW Std Deviation 40.2 RDW Coeff of Jenn 12.3 Plt Count 319 MPV 11.5 Immature Gran % (Auto) 0.100 Neut % (Auto) 41.1 L Lymph % (Auto) 47.4 H [place] % (Auto) 8.1 Eos % (Auto) 2.6 Baso % (Auto) 0.7 Absolute Neuts (auto) 3.4 Absolute Lymphs (auto) 3.87 Nucleated RBC % 0 Sodium 139 Potassium 3.6 Chloride 103 Carbon Dioxide 30.0 Anion Gap 6 BUN 13 Creatinine 0.92 Estim Creat Clear Calc 89.66 Est GFR (MDRD) Af Amer 88 Est GFR (MDRD) Non-Af 73 BUN/Creatinine Ratio 14.1 Glucose 80 Calcium 9.0 Total Bilirubin 0.40 Direct Bilirubin 0.10 AST 10 L ALT 21 Alkaline Phosphatase 41 L Total Protein 7.5 Albumin 4.1 Globulin 3.4 Lipase 107 Serum , Qual NEGATIVE Urine Color Urine Clarity Urine pH Ur Specific [place] Urine Protein Urine Glucose (UA) Urine Ketones Urine Occult Blood Urine Nitrite Urine Bilirubin Urine Urobilinogen Ur Leukocyte Esterase Urine RBC Urine WBC Ur Squamous Epith Cells Calcium Oxalate Crystal Urine Bacteria Urine Mucus 12/09/21 19:30 WBC RBC Hgb Hct MCV MCH MCHC RDW Std Deviation RDW Coeff of Jenn Plt Count MPV Immature Gran % (Auto) Neut % (Auto) Lymph % (Auto) [place] % (Auto) Eos % (Auto) Baso % (Auto) Absolute Neuts (auto) Absolute Lymphs (auto) Nucleated RBC % Sodium Potassium Chloride Carbon Dioxide Anion Gap BUN Creatinine Estim Creat Clear Calc Est GFR (MDRD) Af Amer Est GFR (MDRD) Non-Af BUN/Creatinine Ratio Glucose Calcium Total Bilirubin Direct Bilirubin AST ALT Alkaline Phosphatase Total Protein Albumin Globulin Lipase Serum , Qual Urine Color Straw Urine Clarity Clear Urine pH 6.5 Ur Specific [place] 1.010 Urine Protein Negative Urine Glucose (UA) Normal Urine Ketones Negative Urine Occult Blood 10 H Urine Nitrite Negative Urine Bilirubin Negative Urine Urobilinogen Normal Ur Leukocyte Esterase 25 H Urine RBC 0-5 SEEN Urine WBC 0-5 SEEN Ur Squamous Epith Cells 0-5 SEEN Calcium Oxalate Crystal 1+ Urine Bacteria RARE Urine Mucus 0 SEEN Radiography Diagnostic Testing: Clinical Impression(s) from Imaging Studies Abdomen/Pelvis CT 12/09/21 22:23 IMPRESSION: 1. Nonobstructing right nephrolithiasis 2. Trace physiologic fluid within pelvis 3. Mild hepatomegaly Electronically Signed: Mika Wilson MD at 0:04 EDT , Discharge Plan Triage Chief Complaint: Flank Pain ED Provider: Regulo Weaver Dx/Rx/DC Orders Clinical Impression: Right flank pain, Renal colic on right side Instructions: ED Kidney Stone w/ Colic Prescriptions: New oxycodone-acetaminophen [Percocet] 5-325 mg tablet 1 tab PO Q6H PRN (Reason: pain) 3 Days Qty: 12 0RF No Action acetaminophen [Tylenol] 325 mg capsule 650 mg PO ONCE PRN (Reason: Pain) hydrocortisone [Preparation H Hydrocortisone] 1 % cream 1 applic topical TID PRN (Reason: HEMMROIDS) dicyclomine 20 mg tablet 20 mg PO PRN PRN (Reason: IBS) Label Comments: TAKE 1 TABLET BY MOUTH FOUR TIMES DAILY FOR 7 DAYS tizanidine [Zanaflex] 4 mg tablet 4 mg PO TID PRN (Reason: muscle spasticity) ondansetron 4 mg tablet,disintegrating 4 mg PO Q6H PRN (Reason: nausea and vomiting) Qty: 10 0RF cholecalciferol (vitamin D3) [Vitamin D3] 25 mcg (1,000 unit) Capsule 25 mcg PO QWEEK cephalexin [cephalexin] 500 mg capsule 500 mg PO Q12 3 Days Qty: 6 0RF calcitriol 0.5 mcg capsule 1.5 mcg PO DINNER Qty: 90 6RF levothyroxine 125 mcg tablet 125 mcg PO DAILY Qty: 90 3RF Primary Care Provider: Levi Kent Referrals: Levi Kent MD [Primary Care Provider] - Tiana Sorensen MD [Med Staff - Active Staff] - 1 Day Activity Restrictions/Additional Instructions: Discussed with your urologist tomorrow with your colic symptoms since findings of the nephrolithiasis. Keep your appointment tomorrow. Disposition Disposition: Home, Self Care Discharge Date/Time: 12/09/21 22:46
[2021-12-09] MEDS: Morphine 4 MG/ML Syringe IV ×2 (18:49→19:44)
[2021-12-09] MEDS: Ketorolac 15 MG/ML Vial IV (18:49)
[2021-12-09] MEDS: Ondansetron 4 MG/2 ML Vial IV (18:49)
[2021-12-09] MEDS: 0.9% Normal Saline 1,000 ML 250 ML IV (18:53)
[2021-12-09 19:04] LABS: Absolute Lymphocyte Count 3.87 X10^3/uL (0.83-4.51); Absolute Neutrophil Count 3.4 X10^3/uL (2.0-7.7); Basophil# 0.06 X10^3/uL; Basophil% 0.7 % (0-1); Eosinophil# 0.21 X10^3/uL; Eosinophils% 2.6 % (0-5); Hematocrit 41.7 % (37-47); Hemoglobin 13.9 g/dL (12.0-15.0); Lymphocyte # 3.87 X10^3/ul (0.83-4.51); Lymphocyte % 47.4 % (19-41); Mean Corp Hgb Conc 33.3 g/dL (32-36); Mean Corpuscular Hgb 29.9 pg (27.0-32.0); Mean Corpuscular Volume 89.7 fL (81-99); Mean Platelet Vol. 11.5 fl (6.2-12.0); Monocyte# 0.66 X10^3/uL; Monocyte% 8.1 % (0-10); NRBC Flagged by Analyzer 0 % (0-5); Neutrophil # 3.35 X10^3/uL (2.7-7.7); Neutrophil % 41.1 % (47-70); Platelet Count 319 K/mm3 (150-450); RBC Distribution Width CV 12.3 % (11.6-14.6); RBC Distribution Width SD 40.2 fl (35.1-43.9); Red Blood Count 4.65 M/mm3 (4.2-5.4); White Blood Count 8.2 K/mm3 (4.4-11.0)
[2021-12-09 19:20] LABS: Internal QC Validated? YES +Cl - CLEAR BKGD; Pregnancy, Serum, hCG Quali. NEGATIVE Negative
[2021-12-09 19:30] LABS: AST(SGOT) 10 U/L (15-37); Alanine Aminotransfer ALT/SGPT 21 U/L (13-56); Albumin, Serum 4.1 g/dL (3.2-5.0); Alkaline Phosphatase 41 U/L (45-117); Anion Gap 6 (5-15); BUN 13 mg/dL (7-18); BUN/Creat Ratio 14.1 RATIO (10-20); Chloride 103 mmol/L (98-107); Creatinine, Serum 0.92 mg/dL (0.55-1.02); EST Glomerular Filtration Rate 73 mL/min (>60); Est Glom Filt Rate - Afr Amer 88 mL/min (>60); Estimated Creatinine Clearance 89.66 ml/min; Globulin 3.4 g/dL (2.2-4.2); Glucose 80 mg/dL (74-106); Lipase 107 U/L (73-393); Potassium 3.6 mmol/L (3.5-5.1); Protein, Total 7.5 g/dL (6.4-8.2); Sodium Level 139 mmol/L (136-145)
[2021-12-09 19:37] LABS: Mucous, Urine 0 SEEN /hpf (<or=2+)
[2021-12-09 19:40] LABS: Color, Urine Straw (Yellow); Glucose, Dipstick Normal (Normal); Ketone-Dipstick Negative (Negative); Leukocyte Esterase-Dipstick 25 /ul (Negative); Nitrite-Dipstick Negative (Negative); Occult Blood-Urine 10 /ul (Negative); Protein-Dipstick Negative (Negative); Urine Bilirubin Dipstick Negative (Negative); Urine Clarity Clear (Clear); Urine Urobilinogen Normal (Normal); Urine pH 6.5 (5.0 - 8.0)
[2021-12-09 19:55] LABS: Bacteria RARE /hpf (None Seen); Squamous Epithelial Cells - UA 0-5 SEEN /hpf (5-10)
[2021-12-09 19:56] LABS: Calcium Oxalate Crystals Ur 1+ /hpf (<or=2+); Red Blood Cells-Urine 0-5 SEEN /hpf (0-5); White Blood Cells 0-5 SEEN /hpf (0-5)
[2021-12-09 20:34] VITALS: BP 119/65; PULSE 80; RESP 16; O2SAT 99
[2021-12-09] MEDS: oxyCODONE 5 MG Tablet PO (22:01)
[2021-12-09 22:02] VITALS: BP 96/60; PULSE 71; RESP 16; O2SAT 96
--- NOTE | 2021-12-09 22:23 | CT_ITS ---
INDICATION: right flank pain EXAMINATION: CT ABDOMEN AND PELVIS WITHOUT CONTRAST TECHNIQUE: Helically acquired images were obtained of the abdomen and pelvis without IV contrast. 2-D reconstructions reviewed. A radiation dose optimization technique was used for this scan. IV Contrast dosage and agent: None. Oral contrast: None. COMPARISON: Unenhanced CT abdomen and pelvis from 11/25/2021. FINDINGS: LOWER CHEST: No acute findings within the imaged lung bases. Heart size within normal limits. LIVER: Stable slightly enlarged liver, 20 cm craniocaudal length. No discrete mass. GALLBLADDER AND BILIARY TREE: Status post cholecystectomy. No significant biliary ductal dilation. PANCREAS: No discrete mass or peripancreatic edema. SPLEEN: Normal size without discrete mass. ADRENAL GLANDS: Unremarkable. KIDNEYS AND URETERS: Normal renal size and position. 4.5 mm right renal calyceal stone again noted. No ureteral stones identified. Tiny calcified pelvic phleboliths noted. No perinephric edema or hydroureteronephrosis PERITONEUM: Trace free pelvic fluid. No free air. RETROPERITONEUM: No retroperitoneal mass or pathologic fluid collection. BOWEL: Cecum projects into posterior pelvis. Adjacent normal appendix demonstrated. No abnormal stomach or bowel distension. No focal inflammatory change. LYMPH NODES: No enlarged mesenteric or retroperitoneal lymph nodes. VESSELS: No acute findings. No abdominal aortic aneurysm. URINARY BLADDER: Unremarkable as visualized. REPRODUCTIVE ORGANS: Status post partial hysterectomy. No large adnexal cyst. ABDOMINAL WALL: No acute findings or significant hernia defect. BONES: Moderate degenerative disc space narrowing at L5-S1. CT/Abdomen/Pelvis without Cont IMPRESSION: 1. Nonobstructing right nephrolithiasis 2. Trace physiologic fluid within pelvis 3. Mild hepatomegaly Electronically Signed: Mika Wilson MD at 0:04 EDT ,
[2021-12-09 22:45] VITALS: RESP 16
== END 2021-12-09 22:46 | disposition home or self-care (01) ==
PROVIDERS: Emergency Provider Emergency Medicine; PCP Internal Medicine; Visit Provider Emergency Medicine
DX: N20.0 Calculus of kidney (principal); R10.9 Unspecified abdominal pain; F17.210 Nicotine dependence, cigarettes, uncomplicated; Z79.899 Other long term (current) drug therapy; Z86.16 Personal history of COVID-19
CPT/HCPCS: 74176; 80048; 80076; 81001; 83690; 84703; 85025; 87086; 87088; 96374; 96375; 96376; 99284; J7030; A4216; J2405

== ENCOUNTER 2021-12-10 12:24 | Day surgery (SDC) | payer MEDICAID, SELFPAY ==
[2021-12-10] MEDS: Lactated Ringers 1,000 ML 15 ML IV (12:40)
[2021-12-10 12:45] VITALS: BP 113/78; PULSE 67; RESP 16; TEMP 36.8; O2SAT 100; BMI 24.5
--- NOTE | 2021-12-10 13:33 | PCM.HP.STD ---
HPI - General HPI Narrative AMY VILLEDA, is a 36 F who presents for surgical intervention with extracorporal shockwave lithotripsy for right renal calculus. [facility] Medical History (Updated 12/10/21 @ 13:[address] Tiana Sorensen MD) Abdominal pain Abnormal urinalysis Abscess of left axilla Annular tear of lumbar disc Anxiety Anxiety Arthritis Asthma Cardiology follow-up encounter Carpal tunnel syndrome Chest pain Chronic constipation Chronic pain Degenerative disc disease Degenerative disc disease at L5-S1 level Depression Generalized anxiety disorder with panic attacks H/O breast lump Hiatal hernia Hidradenitis suppurativa History of COVID-19 History of hiatal hernia History of Holter monitoring History of kidney stones History of steroid therapy Hx of cystic acne Hx of hypoglycemia Hypocalcemia Hypocalcemia syndrome Hypoglycemia Hypokalemia Hypothyroidism Injury of head and neck Irregular heart beat Leg cramps Pelvic pain Polycystic ovaries Post-surgical hypoparathyroidism Postoperative hypothyroidism Postsurgical hypoparathyroidism Right flank pain Right renal stone Seasonal allergies Shortness of breath on exertion Smoker Suprapubic discomfort Syncope Tinea pedis of both feet TMJ (temporomandibular joint syndrome) Upper respiratory infection Ureteral calculus, right Urinary frequency Urinary tract infection Vertigo Vitamin deficiency Wears dentures Home Medications acetaminophen 325 mg capsule (Tylenol) 650 mg PO ONCE PRN Pain 12/04/20 [History Last Taken Unknown] hydrocortisone 1 % topical cream (Preparation H Hydrocortisone) 1 applic topical TID PRN HEMMROIDS 06/05/21 [History Last Taken Unknown] calcitriol 0.5 mcg capsule 1.5 mcg PO DINNER #90 caps 06/14/21 [Rx Last Taken 06/30/21] levothyroxine 125 mcg tablet 125 mcg PO DAILY #90 tabs 06/14/21 [Rx Last Taken 12/10/21] ondansetron 4 mg disintegrating tablet 4 mg PO Q6H PRN nausea and vomiting #10 tabs 06/29/21 [Rx Last Taken 12/10/21] tizanidine 4 mg tablet (Zanaflex) 4 mg PO TID PRN muscle spasticity 10/01/21 [History Last Taken Unknown] dicyclomine 20 mg tablet 20 mg PO PRN PRN IBS 11/24/21 [History Last Taken Unknown] cholecalciferol (vitamin D3) 25 mcg (1,000 unit) capsule (Vitamin D3) 25 mcg PO QWEEK 12/07/21 [History Last Taken Unknown] oxycodone-acetaminophen 5 mg-325 mg tablet (Percocet) 1 tab PO Q6H PRN pain 3 days #12 tabs 12/09/21 [Rx Last Taken Unknown] Allergy/AdvReac Type Severity Reaction Status Date / Time codeine Allergy can't Verified 12/10/21 12:43 sleep; itching fluoxetine [From Prozac] Allergy causes Verified 12/10/21 12:43 manic state naproxen Allergy nose bleed Verified 12/10/21 12:43 Family History Father Alcoholism Mother Anemia Depression Hypertension Hyperlipemia Diabetes Grandfather Diabetes Myocardial infarction Grandmother Breast cancer Diabetes Surgical History H/O thyroidectomy History of cholecystectomy History of esophagogastroduodenoscopy (EGD) History of incision and drainage History of partial hysterectomy History of thyroidectomy History of total hysterectomy S/P hysterectomy Social History household members: none Smoking Status: Current every day smoker tobacco type: cigarettes Tobacco: How many years used: 20 alcohol intake: never substance use type: does not use what type of physical activity do you participate in: none ROS Constitutional Constitutional: Denies chills or fever(s) Eyes Eyes: Reports systems reviewed and no addt'l complaints, except as documented ENT HEENT: Reports systems reviewed and no addt'l complaints, except as documented Cardiovascular Cardiovascular: Reports nausea; Denies chest pain, dyspnea or irregular heart rhythm Respiratory/Chest Respiratory/Chest: Denies chest congestion, chest tightness, cough or inability to speak Gastrointestinal Gastrointestinal: Reports abdominal pain and nausea Genitourinary Genitourinary: Reports abdominal discomfort, flank pain and low back pain; Denies burning urination Musculoskeletal Musculoskeletal: Reports back pain Integumentary Integumentary: Reports systems reviewed and no addt'l complaints, except as documented Neurologic Neurologic: Reports systems reviewed and no addt'l complaints, except as documented Psychiatric Psychiatric: Reports systems reviewed and no addt'l complaints, except as documented Endocrine Endocrinology: Reports systems reviewed and no addt'l complaints, except as documented Hematologic/Lymphatic Hematologic/Lymphatic: Reports systems reviewed and no addt'l complaints, except as documented Allergic/Immunologic Allergic/Immunologic: Reports systems reviewed and no addt'l complaints, except as documented Vital Signs Vital Signs Vital Signs: 12/10/21 12:45 12/10/21 12:45 Temperature 98.2 F Temperature Source Temporal Pulse Rate 67 Respiratory Rate 16 Respiratory Pattern Normal Blood Pressure 113/78 Blood Pressure Mean 89 Blood Pressure Source Monitor Blood Pressure Position Semi-Fowlers Blood Pressure Location Left Arm Pulse Ox 100 Oxygen Delivery Method Room Air Weight Weight: 77.564 kg Body Mass Index (BMI) 24.5 Physical Exam Const alert, oriented x3 and no apparent distress General Appearance: cooperative and well developed HEENT normocephalic, hearing grossly normal bilaterally, external ears normal and external nose normal Eyes General Eye: normal appearance of both eyes Neck supple General: trachea midline Lymph Lymphatic: no lymphedema noted Chest inspection of chest normal Chest: symmetrical chest wall rise Resp normal respiratory effort, normal air movement and no retractions Cardio regular rate and regular rhythm GI soft to palpation, non-tender and non-distended Bladder / Kidney Exam: CVA tenderness right Back/Spine General Back: CVA tenderness right Extremity normal to inspection Skin no rashes or lesions noted Neuro oriented x3 and CN's II-XII intact bilaterally Psych mental status grossly normal Assessment & Plan Assessment/Plan (1) Right renal stone: PLAN: Right renal extracorporal shockwave lithotripsy
--- NOTE | 2021-12-10 13:37 | PCM.OPRPT ---
Report of Operation Date of Procedure: 12/10/21 Pre-Operative Diagnosis: Right renal calculus Post-Operative Diagnosis: Same Surgery/Procedure Performed:: Right renal extracorporal shockwave lithotripsy Surgeon: Tiana Sorensen Type of Anesthesia: General Specimen's removed: None Description of Procedure: The patient is a 36-year-old female with a right renal calculus who presents for definitive surgical intervention. Informed consent was obtained. The patient was taken to the operating room and placed in a supine position on the lithotripsy table. Anesthesia monitored the head, neck, airway, IV access and vital signs throughout the case. Once anesthesia was appropriate ministered, the patient was placed in alignment with the lithotripter so that the stone was in the crosshairs. 3000 shocks were applied and the stone appeared to be well fragmented at the conclusion of the case. There were no complications during the procedure. The patient was then awakened and taken to the recovery room in good condition. Grafts/Implants Used: None Complications None Admit VTE Documentation VTE Present on Admission: Yes VTE Mechan Device Prophylaxis: SCD's VTE Pharm Prophylaxis ordered?: No Reason prophylaxis not ordered:: Treatment Not Indicated
--- NOTE | 2021-12-10 13:39 | DCINST_ITS ---
Discharge Instructions Diet Discharge Diet: No restrictions Activity Discharge Activity: Return to Normal Activity May resume sexual activity in: No Restrictions Dressing / Incision Call your doctor if you observe: Fever of 101 or Higher, Inability to urinate and Inability to have a bowel movement Follow Up Care Please Follow Up With: Tiana Sorensen MD When: Call for appointment to be seen in 2 to 3 weeks, KUB prior to appointment Test Results: Test results from this visit will be discussed in further detail at your follow- up appointment, if applicable. Discharge Plan Admission Attending Provider: Tiana Sorensen Primary Care Provider: Levi Kent Discharge Orders/Prescriptions Prescriptions: New cephalexin [cephalexin] 500 mg capsule 500 mg PO Q12 3 Days Qty: 6 0RF Continued acetaminophen [Tylenol] 325 mg capsule 650 mg PO ONCE PRN (Reason: Pain) hydrocortisone [Preparation H Hydrocortisone] 1 % cream 1 applic topical TID PRN (Reason: HEMMROIDS) dicyclomine 20 mg tablet 20 mg PO PRN PRN (Reason: IBS) Label Comments: TAKE 1 TABLET BY MOUTH FOUR TIMES DAILY FOR 7 DAYS tizanidine [Zanaflex] 4 mg tablet 4 mg PO TID PRN (Reason: muscle spasticity) ondansetron 4 mg tablet,disintegrating 4 mg PO Q6H PRN (Reason: nausea and vomiting) Qty: 10 0RF cholecalciferol (vitamin D3) [Vitamin D3] 25 mcg (1,000 unit) Capsule 25 mcg PO QWEEK oxycodone-acetaminophen [Percocet] 5-325 mg tablet 1 tab PO Q6H PRN (Reason: pain) 3 Days Qty: 12 0RF calcitriol 0.5 mcg capsule 1.5 mcg PO DINNER Qty: 90 6RF levothyroxine 125 mcg tablet 125 mcg PO DAILY Qty: 90 3RF Referrals / Follow Up: Levi Kent MD [Primary Care Provider] - Disposition Disposition (needs filled in before D/C Order can be placed): Home, Self Care
[2021-12-10] MEDS: Cefazolin 2 GM in 0.9% Normal Saline 100 ML IV (14:22)
[2021-12-10 15:47] VITALS: BP 109/66; BP 113/78; PULSE 83; RESP 18; TEMP 36.8; O2SAT 97
--- NOTE | 2021-12-10 15:54 | EKG12_ITS ---
Test Reason : POST OP Blood Pressure : / mmHG Vent. Rate : 051 BPM Atrial Rate : 051 BPM P-R Int : 160 ms QRS Dur : 086 ms QT Int : 456 ms P-R-T Axes : 063 057 052 degrees QTc Int : 420 ms Sinus bradycardia Otherwise normal ECG When compared with ECG of 01-JUL-2021 10:18, No significant change was found Confirmed by HESHAM BONNER, VICENTE ([id number]), department editor CELIA BYRD ([id number]) on 12/15/2021 9:27:11 AM Referred By: Tiana Sorensen Confirmed By:TODD DAHL MD
[2021-12-10 16:00] VITALS: BP 104/77; BP 113/78; PULSE 50; RESP 16; O2SAT 100
[2021-12-10 16:15] VITALS: BP 108/68; BP 113/78; PULSE 56; RESP 16; TEMP 36.4; O2SAT 100
[2021-12-10 16:28] LABS: Troponin-I HS 4 pg/mL (3.0-54.0)
[2021-12-10 16:57] VITALS: BP 113/78; BP 120/70; PULSE 60; RESP 16; O2SAT 98
== END 2021-12-10 17:05 | disposition home or self-care (01) ==
LOC: SDC 12:25 → AC 12:26
PROVIDERS: Anesthesiology; PCP Internal Medicine; Referring Provider Urology; Visit Provider Urology
PROC: (CPT 50590; principal; 2021-12-10 13:55)
DX: N20.0 Calculus of kidney (principal); F17.210 Nicotine dependence, cigarettes, uncomplicated; E03.9 Hypothyroidism, unspecified; Z79.899 Other long term (current) drug therapy; Z86.16 Personal history of COVID-19
CPT/HCPCS: 50590; 00873; 84484; 93005; J7120; J2405

== ENCOUNTER → 2021-12-15 | Outpatient (CLI) | payer MEDICAID, SELFPAY ==
[2021-12-15 10:26] LABS: Erythrocyte Sedimentation Rate 6 mm/hr (0-30)
[2021-12-15 10:43] LABS: Hemoglobin A1c 5.7 % (3.8-5.6)
[2021-12-15 10:44] LABS: Ammonia < 10.0 umol/L (11-32)
[2021-12-15 10:53] LABS: CRP < 2.90 mg/L (0.0-3.0); Ferritin 41 ng/mL (8-252)
[2021-12-15 11:11] LABS: HIV - WCH Non-Reactive (Nonreactive)
[2021-12-16 16:22] LABS: Anti-Mitochondrial AB <20.0 Units (0.0-20.0)
[2021-12-17 00:07] LABS: Angiotensin Convert Enzyme 16 U/L (14-82); HEPATITIS B SURFACE AG Negative (Negative); Hep C Antibodies <0.1 s/co ratio (0.0-0.9); Hepatitis A IgM Antibody Negative (Negative); Hepatitis B Core AB IgM Negative (Negative)
[2021-12-17 16:44] LABS: AFP, Tumor Marker 2.9 ng/mL (0.0-6.4); Anti-Smooth Muscle ABS 5 Units (0-19); Copper, Serum or Plasma 110 ug/dL (80-158); Haptoglobin 196 mg/dL (33-278)
== END | disposition home or self-care (01) ==
PROVIDERS: PCP Internal Medicine; Referring Provider Nurse Practitioner Adult Health; Visit Provider Nurse Practitioner Adult Health
DX: K76.0 Fatty (change of) liver, not elsewhere classified (principal); R16.0 Hepatomegaly, not elsewhere classified
CPT/HCPCS: 36415; 80074; 82105; 82140; 82164; 82390; 82525; 82728; 83010; 83036; 83516; 85610; 85652; 86140; 86703

== ENCOUNTER → 2021-12-18 | Outpatient (CLI) | payer MEDICAID, SELFPAY ==
--- NOTE | 2021-12-18 08:58 | US_ITS ---
STUDY: ULTRASOUND BREAST - RIGHT REASON FOR EXAM: Female, 36 years old. Pain in the right breast. TECHNIQUE: Axial and longitudinal images of the RIGHT breast were performed with a high resolution ultrasound transducer. # OF IMAGES: 22 COMPARISON: Comparison is made with prior mammogram done earlier in the day. FINDINGS: RIGHT Breast: The inferior medial aspect of the right breast was examined with ultrasound. No sonographic abnormality is seen. US/Breast Limited Unilateral IMPRESSION: No sonographic abnormality is seen. ASSESSMENT CATEGORY: BIRADS Category 1: Negative. A letter regarding these results will be sent to the patient by the facility within 30 days. Electronically Signed: Dimitris Stewart MD at 10:21 EDT ,
--- NOTE | 2021-12-18 08:58 | BI_ITS ---
MAMMOGRAPHY - BILATERAL DIAGNOSTIC REASON FOR EXAM: Female, 36 years old. Right inferior medial breast pain. PERTINENT HISTORY: Grandmother with breast cancer. Aunts with breast cancer. TECHNIQUE: Digital bilateral breast eleni (3D mammographic acquisition) in the CC and MLO projections. 2-D mediolateral oblique (MLO) and craniocaudad (CC) views of both breasts were obtained. CAD: Full Field Digital Mammography with Computer Added Detection was performed. COMPARISON: Comparison is made with prior outside examination dated 12/06/1999 FINDINGS: Breast Composition: The breasts are heterogeneously dense, which may obscure small masses. There are no dominant masses or suspicious calcifications. A tissue clip marker is seen in the anterior slightly upper lateral aspect of the left breast. No other significant abnormalities are identified. There has been no significant change since the prior study. BI/DIAG MAMM W/CAD, BILAT IMPRESSION: Stable bilateral diagnostic mammogram. History of breast pain, correlation with ultrasound is recommended. ASSESSMENT CATEGORY: BIRADS Category 0: Incomplete. Need additional imaging evaluation. A letter regarding these results will be sent to the patient by the facility within 30 days. Approximately 10% of breast cancers are not detected by mammography. A normal mammogram should not delay biopsy of a clinically suspicious abnormality. Electronically Signed: Dimitris Stewart MD at 10:21 EDT ,
== END | disposition home or self-care (01) ==
LOC: OPBI 08:56
PROVIDERS: PCP Internal Medicine; Referring Provider Student in an Organized Health Care Education/Training Program; Visit Provider Student in an Organized Health Care Education/Training Program
DX: N64.4 Mastodynia (principal)
CPT/HCPCS: 77062; 76642; 77066; G0279

== ENCOUNTER → 2021-12-30 | Outpatient (CLI) | payer MEDICAID, SELFPAY ==
--- NOTE | 2021-12-30 09:15 | RAD_ITS ---
STUDY: X-RAY - ABDOMEN/PELVIS REASON FOR EXAM: Female, 36 years old. Renal calculi. TECHNIQUE: Single AP view of the abdomen / pelvis on 2 images. COMPARISON: CT of the abdomen and pelvis dated 12/09/2021. FINDINGS: Normal visualized lung bases. There is an unremarkable bowel gas pattern. There is no demonstrated free abdominal air. 7 mm in diameter calcification projected over the upper pole of the right kidney and 5 mm in diameter calcification projected over the midpole of the right kidney. Normal visualized osseous structures. RAD/Abdomen Single View IMPRESSION: 2 small calcifications projected over the right kidney. No acute abnormality. Electronically Signed: Joshua Maxwell, at 12:21 EDT ,
== END | disposition home or self-care (01) ==
LOC: MTRAD 08:56
PROVIDERS: PCP Internal Medicine; Referring Provider Urology; Visit Provider Urology
DX: N20.0 Calculus of kidney (principal)
CPT/HCPCS: 74018

== ENCOUNTER → 2022-01-05 | Outpatient (CLI) | payer MEDICAID, SELFPAY ==
--- NOTE | 2022-01-05 07:46 | US_ITS ---
STUDY: ABDOMINAL ULTRASOUND - ELASTOGRAPHY REASON FOR VISIT: Female, 36 years old. Fatty infiltration of the liver. TECHNIQUE: Liver stiffness measurements were obtained on a [employer] RS 85 ultrasound machine using a CA 1-7 probe following the SRU guidelines. 3 measurements were obtained using a 2-D-SWE method. The IQR/M was 17% suggesting a quality data set. TECHNICAL QUALITY: Adequate. COMPARISON: Comparison is made with prior examination dated 11/05/2021. FINDINGS: Liver: Fatty infiltration of the liver. Median liver stiffness measured 6.3 kPa. US/Elastography Parenchyma/Organ IMPRESSION: Liver stiffness measures 6.3 kPa compatible with F2-F3 (Mild to moderate liver fibrosis) Metavir score. Electronically Signed: Dimitris Stewart MD at 10:47 EDT ,
== END | disposition home or self-care (01) ==
LOC: US 07:45
PROVIDERS: PCP Internal Medicine; Referring Provider Nurse Practitioner Adult Health; Visit Provider Nurse Practitioner Adult Health
DX: K76.0 Fatty (change of) liver, not elsewhere classified (principal); R16.0 Hepatomegaly, not elsewhere classified
CPT/HCPCS: 76981

== ENCOUNTER 2022-01-06 08:34 | Emergency (ER) | payer MEDICAID, SELFPAY ==
[2022-01-06 08:35] VITALS: BP 137/99; PULSE 86; RESP 18; TEMP 36.4; O2SAT 100; BMI 25.1
--- NOTE | 2022-01-06 09:14 | EDS_ITS ---
HPI History of Present Illness Chief Complaint: Flank Pain Informant: patient Onset/Context/Timing Onset: Yesterday Context: Sudden Onset Timing: Continuous Quality: Aching, pressure, stabbing at times Location: Right flank Worsened by: Movement Relieved by: Nothing Narrative Narrative: Patient presents with right flank pain that began yesterday. Patient states it came on suddenly. Patient describes her pain as aching and pressure. Patient states it is stabbing at times. Patient states her pain is constant. Patient states it is worse with movement. Patient states she had recent lithotripsy on December 10. Patient states she was doing well until yesterday. Patient states her pain is similar to previous kidney stone pain. Patient admits to some urinary frequency and nausea. Patient denies any vomiting. Patient denies any dysuria or hematuria. [facility] Medical History Abdominal pain Abnormal urinalysis Abscess of left axilla Annular tear of lumbar disc Anxiety Anxiety Arthritis Asthma Cardiology follow-up encounter Carpal tunnel syndrome Chest pain Chronic constipation Chronic pain Degenerative disc disease Degenerative disc disease at L5-S1 level Depression Generalized anxiety disorder with panic attacks H/O breast lump Hiatal hernia Hidradenitis suppurativa History of COVID-19 History of hiatal hernia History of Holter monitoring History of kidney stones History of steroid therapy Hx of cystic acne Hx of hypoglycemia Hypocalcemia Hypocalcemia syndrome Hypoglycemia Hypokalemia Hypothyroidism Injury of head and neck Irregular heart beat Leg cramps Pelvic pain Polycystic ovaries Post-surgical hypoparathyroidism Postoperative hypothyroidism Postsurgical hypoparathyroidism Right flank pain Right renal stone Seasonal allergies Shortness of breath on exertion Smoker Suprapubic discomfort Syncope Tinea pedis of both feet TMJ (temporomandibular joint syndrome) Upper respiratory infection Ureteral calculus, right Urinary frequency Urinary tract infection Vertigo Vitamin deficiency Wears dentures Home Medications acetaminophen 325 mg capsule (Tylenol) 650 mg PO ONCE PRN Pain 12/04/20 [History Last Taken Unknown] hydrocortisone 1 % topical cream (Preparation H Hydrocortisone) 1 applic topical TID PRN HEMMROIDS 06/05/21 [History Last Taken Unknown] calcitriol 0.5 mcg capsule 1.5 mcg PO DINNER #90 caps 06/14/21 [Rx Last Taken 06/30/21] levothyroxine 125 mcg tablet 125 mcg PO DAILY #90 tabs 06/14/21 [Rx Last Taken 12/10/21] ondansetron 4 mg disintegrating tablet 4 mg PO Q6H PRN nausea and vomiting #10 tabs 06/29/21 [Rx Last Taken 12/10/21] tizanidine 4 mg tablet (Zanaflex) 4 mg PO TID PRN muscle spasticity 10/01/21 [History Last Taken Unknown] dicyclomine 20 mg tablet 20 mg PO PRN PRN IBS 11/24/21 [History Last Taken Unknown] cholecalciferol (vitamin D3) 25 mcg (1,000 unit) capsule (Vitamin D3) 25 mcg PO QWEEK 12/07/21 [History Last Taken Unknown] oxycodone-acetaminophen 5 mg-325 mg tablet (Percocet) 1 tab PO Q6H PRN pain 3 days #12 tabs 12/09/21 [Rx Last Taken Unknown] cephalexin 500 mg capsule 500 mg PO Q12 post-operative 3 days #6 CAPSULES 12/10/21 [Rx Last Taken Unknown] Allergy/AdvReac Type Severity Reaction Status Date / Time codeine Allergy can't Verified 01/06/22 08:38 sleep; itching fluoxetine [From Prozac] Allergy causes Verified 01/06/22 08:38 manic state naproxen Allergy nose bleed Verified 01/06/22 08:38 Family History Father Alcoholism Mother Anemia Depression Hypertension Hyperlipemia Diabetes Grandfather Diabetes Myocardial infarction Grandmother Breast cancer Diabetes Surgical History H/O thyroidectomy History of cholecystectomy History of esophagogastroduodenoscopy (EGD) History of incision and drainage History of partial hysterectomy History of thyroidectomy History of total hysterectomy S/P hysterectomy Social History household members: none Smoking Status: Current every day smoker tobacco type: cigarettes Tobacco: How many years used: 20 alcohol intake: never substance use type: does not use what type of physical activity do you participate in: none ROS ROS ED Constitutional Constitutional ED: Denies chills or fever(s) Eyes Eyes: Denies blurry vision or change in vision ENT ENT ED: Denies rhinorrhea or sore throat Cardiovascular Cardiovascular: Reports chest pain; Denies palpitations Respiratory/Chest Respiratory/Chest: Denies cough or dyspnea Gastrointestinal Gastrointestinal: Reports abdominal pain and nausea; Denies vomiting Genitourinary Genitourinary ED: Reports urinary frequency; Denies dysuria or hematuria Musculoskeletal Musculoskeletal: Reports back pain; Denies neck pain Integumentary Denies abscess or rash Neurologic Neurologic: Denies headache(s) or weakness Allergic/Immunologic Allergic/Immunologic ED: Denies mouth swelling or urticaria EXAM Physical Exam Const Vital Signs: 01/06/22 08:35 01/06/22 10:38 Temperature 97.5 F L Temperature Source Temporal Pulse Rate 86 61 Respiratory Rate 18 15 Blood Pressure 137/99 H 119/65 Blood Pressure Mean 111 83 Pulse Ox 100 100 Oxygen Delivery Method Room Air Room Air Positive well nourished and well developed General Appearance ED: well developed and NAD HEENT Reports moist mucous membranes Neck supple and no JVD Resp normal respiratory effort and clear to auscultation bilaterally Cardio regular rate, regular rhythm and no murmurs GI normal to inspection, nondistended, normoactive bowel sounds Palpation: soft and tender RUQ; Negative for guarding or rebound tenderness present Back/Spine General Back: CVA tenderness right Extremity normal to inspection General Extremety ED: Negative for edema or tenderness General Extremity: Negative for edema Neuro oriented x3, CN's II-XII intact bilaterally and no sensory deficits noted Sensorium / Orientation: alert Motor Exam: strength 5/5 throughout Psych mental status grossly normal Skin no rashes or lesions noted MDM MDM MDM Narrative Medical decision making narrative: Patient was given IV fluids, morphine, and Zofran. Patient was also given a GI cocktail. EKG was obtained. On my interpretation, it showed a sinus bradycardia with a rate of 53. [place] interval, QRS interval, and QTc intervals were all normal. [place] was normal. There are no acute ST or T wave changes. CBC was within normal limits. Comprehensive metabolic profile was within normal limits. Lipase was normal. Serum hCG was negative. Urinalysis does not show any evidence of urinary tract infection or hematuria. PA and lateral chest x- ray was obtained. There are 2 views. On my interpretation, lung vila are clear. There is normal cardiac silhouette. Bony thorax is normal. There is no acute process noted. Radiologist also interpreted the x-ray and agrees. CT scan of the abdomen pelvis was obtained. There is a 2 mm appendicolith but there is no evidence of appendicitis. There is no acute process noted. This was interpreted by the radiologist and reviewed by myself. Patient is feeling better on reevaluation. Patient was advised of her findings. Patient was instructed to follow-up with her primary care physician in 5 to 7 days. Patient understood and was agreeable with the plan. All questions were answered. Lab Data Attestation: I reviewed the patient's lab results. Labs: Laboratory Results - last 24 hr 01/06/22 01/06/22 01/06/22 08:55 08:55 08:55 WBC 9.8 RBC 4.79 Hgb 14.5 Hct 43.5 MCV 90.8 MCH 30.3 MCHC 33.3 RDW Std Deviation 41.7 RDW Coeff of Jenn 12.4 Plt Count 331 MPV 11.7 Immature Gran % (Auto) 0.300 Neut % (Auto) 57.9 Lymph % (Auto) 31.7 [place] % (Auto) 7.2 Eos % (Auto) 2.3 Baso % (Auto) 0.6 Absolute Neuts (auto) 5.7 Absolute Lymphs (auto) 3.10 Nucleated RBC % 0 Sodium 139 Potassium 4.1 Chloride 104 Carbon Dioxide 28.0 Anion Gap 7 BUN 13 Creatinine 0.99 Estim Creat Clear Calc 83.32 Est GFR (MDRD) Af Amer 80 Est GFR (MDRD) Non-Af 67 BUN/Creatinine Ratio 13.1 Glucose 89 Calcium 8.9 Total Bilirubin 0.30 AST 14 L ALT 28 Alkaline Phosphatase 45 Troponin I High Sens 3 Total Protein 8.1 Albumin 4.2 Globulin 3.9 Albumin/Globulin Ratio 1.1 Lipase 102 Serum , Qual NEGATIVE Urine Color Urine Clarity Urine pH Ur Specific [place] Urine Protein Urine Glucose (UA) Urine Ketones Urine Occult Blood Urine Nitrite Urine Bilirubin Urine Urobilinogen Ur Leukocyte Esterase Urine RBC Urine WBC Ur Squamous Epith Cells Urine Bacteria Urine Mucus 01/06/22 08:55 WBC RBC Hgb Hct MCV MCH MCHC RDW Std Deviation RDW Coeff of Jenn Plt Count MPV Immature Gran % (Auto) Neut % (Auto) Lymph % (Auto) [place] % (Auto) Eos % (Auto) Baso % (Auto) Absolute Neuts (auto) Absolute Lymphs (auto) Nucleated RBC % Sodium Potassium Chloride Carbon Dioxide Anion Gap BUN Creatinine Estim Creat Clear Calc Est GFR (MDRD) Af Amer Est GFR (MDRD) Non-Af BUN/Creatinine Ratio Glucose Calcium Total Bilirubin AST ALT Alkaline Phosphatase Troponin I High Sens Total Protein Albumin Globulin Albumin/Globulin Ratio Lipase Serum , Qual Urine Color Yellow Urine Clarity Clear Urine pH 6.0 Ur Specific [place] 1.015 Urine Protein Negative Urine Glucose (UA) Normal Urine Ketones Negative Urine Occult Blood 25 H Urine Nitrite Negative Urine Bilirubin Negative Urine Urobilinogen Normal Ur Leukocyte Esterase Negative Urine RBC 0-5 SEEN Urine WBC 0 SEEN Ur Squamous Epith Cells 0-5 SEEN Urine Bacteria 0 SEEN Urine Mucus 0 SEEN Radiography Chest X-Ray - ED: 2 View, Read by ED Physician, Read by Radiologist, Normal and No Acute Disease Diagnostic Testing: Clinical Impression(s) from Imaging Studies Abdomen/Pelvis CT 01/06/22 09:19 IMPRESSION: No obstructive uropathy is seen. 2 mm calcified appendicolith. Electronically Signed: Dimitris Stewart MD at 10:03 EDT , Chest X-Ray 01/06/22 09:50 IMPRESSION: Normal x-ray examination of the chest. Electronically Signed: Dimitris Stewart MD at 10:28 EDT , EKG Initial EKG: Attestation: I personally reviewed and interpreted this EKG as follows: Interpretation: No Acute Injury Pattern and Sinus Bradycardia (53) Prior EKG tracings: available for review Prior: Unchanged (12/10/2021) Discharge Plan Triage Chief Complaint: Flank Pain ED Provider: Ravin Hill Dx/Rx/DC Orders Clinical Impression: Right upper quadrant abdominal pain, Bradycardia Instructions: ED Abdominal Pain Unkn Cause Fem, ED Flank Pain, Uncertain Cause Prescriptions: No Action acetaminophen [Tylenol] 325 mg capsule 650 mg PO ONCE PRN (Reason: Pain) hydrocortisone [Preparation H Hydrocortisone] 1 % cream 1 applic topical TID PRN (Reason: HEMMROIDS) dicyclomine 20 mg tablet 20 mg PO PRN PRN (Reason: IBS) Label Comments: TAKE 1 TABLET BY MOUTH FOUR TIMES DAILY FOR 7 DAYS tizanidine [Zanaflex] 4 mg tablet 4 mg PO TID PRN (Reason: muscle spasticity) ondansetron 4 mg tablet,disintegrating 4 mg PO Q6H PRN (Reason: nausea and vomiting) Qty: 10 0RF cholecalciferol (vitamin D3) [Vitamin D3] 25 mcg (1,000 unit) Capsule 25 mcg PO QWEEK cephalexin [cephalexin] 500 mg capsule 500 mg PO Q12 3 Days Qty: 6 0RF oxycodone-acetaminophen [Percocet] 5-325 mg tablet 1 tab PO Q6H PRN (Reason: pain) 3 Days Qty: 12 0RF calcitriol 0.5 mcg capsule 1.5 mcg PO DINNER Qty: 90 6RF levothyroxine 125 mcg tablet 125 mcg PO DAILY Qty: 90 3RF Primary Care Provider: Levi Kent Referrals: Levi Kent MD [Primary Care Provider] - 5-7 Days Disposition Disposition: Home, Self Care
--- NOTE | 2022-01-06 09:19 | EKG12_ITS ---
Test Reason : CP Blood Pressure : / mmHG Vent. Rate : 053 BPM Atrial Rate : 053 BPM P-R Int : 148 ms QRS Dur : 086 ms QT Int : 426 ms P-R-T Axes : 068 059 056 degrees QTc Int : 399 ms Sinus bradycardia Otherwise normal ECG Confirmed by HESHAM BONNER, VICENTE ([id number]), slot editor CELIA BYRD ([id number]) on 01/07/2022 12:59:20 P M Referred By: Confirmed By:TODD DAHL MD
--- NOTE | 2022-01-06 09:19 | CT_ITS ---
STUDY: CT ABDOMEN AND PELVIS WITHOUT CONTRAST REASON FOR EXAM: Female, 36 years old. Right flank pain. Recent lithotripsy. RADIATION DOSAGE (If Supplied By Facility): CTDIvol = ( 7.33 ) mGy, DLP = ( 384.78 ) mGycm TECHNIQUE: Transaxial images were obtained from the dome of the diaphragm to the symphysis pubis without oral contrast, and without intravenous contrast. Sagittal and coronal images were reconstructed. Individualized dose optimization techniques were used for this CT. COMPARISON: Comparison is made with prior study 12/09/2021. FINDINGS: The visualized lung bases are unremarkable. The visualized portions of the heart are within normal limits. Normal liver. The patient is status post cholecystectomy. Normal spleen. Normal pancreas. Normal bilateral adrenal glands. The previously seen calculus in the mid posterior pole of the right kidney is not seen at this time. Normal left kidney. Normal visualized stomach. Normal small intestine. Normal colon. There is a 2 mm calcified appendicolith. Normal abdominal aorta. Normal inferior vena cava. Normal retroperitoneum. Normal urinary bladder. Normal abdominal wall. Mild disc space narrowing at the L5-S1 level. Straightening of the normal lumbar lordosis. CT/Abdomen/Pelvis without Cont IMPRESSION: No obstructive uropathy is seen. 2 mm calcified appendicolith. Electronically Signed: Dimitris Stewart MD at 10:03 EDT ,
[2022-01-06] MEDS: Mag Hydrox/Al Hydrox/Simeth 30 ML UDC PO (09:28)
[2022-01-06] MEDS: Ondansetron 4 MG/2 ML Vial IV (09:29)
[2022-01-06] MEDS: Morphine 4 MG/ML Syringe IV (09:29)
[2022-01-06] MEDS: 0.9% Normal Saline 1,000 ML 1000 ML IV (09:30)
[2022-01-06 09:31] LABS: Bacteria 0 SEEN /hpf (None Seen); Mucous, Urine 0 SEEN /hpf (<or=2+); White Blood Cells 0 SEEN /hpf (0-5)
[2022-01-06 09:37] LABS: Color, Urine Yellow (Yellow); Glucose, Dipstick Normal (Normal); Ketone-Dipstick Negative (Negative); Leukocyte Esterase-Dipstick Negative /ul (Negative); Nitrite-Dipstick Negative (Negative); Occult Blood-Urine 25 /ul (Negative); Protein-Dipstick Negative (Negative); Specific Gravity, Urine 1.015 (1.002-1.030); Urine Bilirubin Dipstick Negative (Negative); Urine Clarity Clear (Clear); Urine Urobilinogen Normal (Normal)
[2022-01-06 09:42] LABS: Absolute Neutrophil Count 5.7 X10^3/uL (2.0-7.7); Basophil# 0.06 X10^3/uL; Basophil% 0.6 % (0-1); Eosinophil# 0.23 X10^3/uL; Eosinophils% 2.3 % (0-5); Hematocrit 43.5 % (37-47); Hemoglobin 14.5 g/dL (12.0-15.0); Lymphocyte % 31.7 % (19-41); Mean Corp Hgb Conc 33.3 g/dL (32-36); Mean Corpuscular Hgb 30.3 pg (27.0-32.0); Mean Corpuscular Volume 90.8 fL (81-99); Mean Platelet Vol. 11.7 fl (6.2-12.0); Monocyte% 7.2 % (0-10); NRBC Flagged by Analyzer 0 % (0-5); Neutrophil # 5.67 X10^3/uL (2.7-7.7); Neutrophil % 57.9 % (47-70); Platelet Count 331 K/mm3 (150-450); RBC Distribution Width CV 12.4 % (11.6-14.6); RBC Distribution Width SD 41.7 fl (35.1-43.9); Red Blood Count 4.79 M/mm3 (4.2-5.4); White Blood Count 9.8 K/mm3 (4.4-11.0)
[2022-01-06 09:48] LABS: Squamous Epithelial Cells - UA 0-5 SEEN /hpf (5-10)
[2022-01-06 09:49] LABS: Red Blood Cells-Urine 0-5 SEEN /hpf (0-5)
--- NOTE | 2022-01-06 09:50 | RAD_ITS ---
STUDY: X-RAY CHEST REASON FOR EXAM: Female, 36 years old. Chest pain TECHNIQUE: PA and lateral views of the chest. COMPARISON: Comparison is made with prior study dated 10/13/2021. FINDINGS: EKG electrodes are seen. The lungs are clear and expanded. There is no demonstrated pleural abnormality. Normal size heart. Normal mediastinum and kaylin. Normal visualized pulmonary arteries. Normal visualized aortic arch and descending thoracic aorta. Normal visualized thoracic spine. Normal visualized ribs, clavicles, and shoulders. There is no demonstrated abnormality of the visualized soft tissue structures of the upper abdomen. RAD/Chest PA and Lateral IMPRESSION: Normal x-ray examination of the chest. Electronically Signed: Dimitris Stewart MD at 10:28 EDT ,
[2022-01-06 09:52] LABS: ALB/GLOB Ratio 1.1 RATIO (0.9-2.4); AST(SGOT) 14 U/L (15-37); Alanine Aminotransfer ALT/SGPT 28 U/L (13-56); Albumin, Serum 4.2 g/dL (3.2-5.0); Alkaline Phosphatase 45 U/L (45-117); Anion Gap 7 (5-15); BUN 13 mg/dL (7-18); BUN/Creat Ratio 13.1 RATIO (10-20); Calcium,Total 8.9 mg/dL (8.5-10.1); Chloride 104 mmol/L (98-107); Creatinine, Serum 0.99 mg/dL (0.55-1.02); EST Glomerular Filtration Rate 67 mL/min (>60); Est Glom Filt Rate - Afr Amer 80 mL/min (>60); Estimated Creatinine Clearance 83.32 ml/min; Globulin 3.9 g/dL (2.2-4.2); Glucose 89 mg/dL (74-106); Lipase 102 U/L (73-393); Potassium 4.1 mmol/L (3.5-5.1); Protein, Total 8.1 g/dL (6.4-8.2); Sodium Level 139 mmol/L (136-145); Troponin-I HS 3 pg/mL (3.0-54.0)
[2022-01-06 09:59] LABS: Internal QC Validated? YES +Cl - CLEAR BKGD; Pregnancy, Serum, hCG Quali. NEGATIVE Negative
[2022-01-06 10:38] VITALS: BP 119/65; PULSE 61; RESP 15; O2SAT 100
== END 2022-01-06 11:00 | disposition home or self-care (01) ==
PROVIDERS: Emergency Provider Emergency Medicine; PCP Internal Medicine; Visit Provider Emergency Medicine
DX: R10.11 Right upper quadrant pain (principal); R00.1 Bradycardia, unspecified; F17.210 Nicotine dependence, cigarettes, uncomplicated; Z86.16 Personal history of COVID-19
CPT/HCPCS: 71046; 74176; 80053; 81001; 83690; 84484; 84703; 85025; 93005; 96361; 96374; 96375; 99285; J7030; A4216; J2405

== ENCOUNTER → 2022-01-07 | Outpatient (CLI) | payer MEDICAID, SELFPAY ==
[2022-01-07 10:41] LABS: Bacteria 0 SEEN /hpf (None Seen); Mucous, Urine 0 SEEN /hpf (<or=2+); Squamous Epithelial Cells - UA 0 SEEN /hpf (5-10); White Blood Cells 0 SEEN /hpf (0-5)
[2022-01-07 12:12] LABS: Color, Urine Yellow (Yellow); Glucose, Dipstick Normal (Normal); Ketone-Dipstick Negative (Negative); Leukocyte Esterase-Dipstick Negative /ul (Negative); Nitrite-Dipstick Negative (Negative); Occult Blood-Urine 10 /ul (Negative); Protein-Dipstick Negative (Negative); Urine Bilirubin Dipstick Negative (Negative); Urine Clarity Sl. Cloudy (Clear); Urine Urobilinogen Normal (Normal)
[2022-01-07 12:19] LABS: Red Blood Cells-Urine 0-5 SEEN /hpf (0-5)
== END | disposition home or self-care (01) ==
LOC: LABSPEC 10:39
PROVIDERS: PCP Internal Medicine; Referring Provider Nurse Practitioner Family; Visit Provider Nurse Practitioner Family
DX: R10.2 Pelvic and perineal pain (principal)
CPT/HCPCS: 81001; 87086

== ENCOUNTER 2022-02-06 09:38 | Observation (INO) | payer MEDICAID, SELFPAY ==
[2022-02-06] VITALS (10 sets, daily range): BP systolic 90–134; BP diastolic 58–80; PULSE 49–85; RESP 16–18; TEMP 36.1–37.1; O2SAT 95–100; BMI 23.6; BMI 24.0
--- NOTE | 2022-02-06 | APP_PTH ---
PATIENT: AMY VILLEDA LOC: MS3 U#:[id number] AGE/SX: 36/F ROOM: [facility] [place] RE02/06/[address]: Dr. Tara Rob MD : [id number] BED: 1 DIS: 02/06/2022 SPEC #: [id number] RECD: 02/08/22 07:02 STATUS: NICOLE RELucy #: [id number] MERLE: 02/06/22 00:[address]: Tara Rob DEPT: SURGICAL PATHOLOGY RECD BY: Carlos Oconnell ENTERED: 02/08/22 07:25 SP TYPE: APPENDIX OTHR DR: Dr. Levi Kent MD Tissues: Appendix, NOS Procedures: Surgery Specimen Level III HEADER OPERATION: Laparoscopic appendectomy PRE-OP DIAGNOSIS: Acute appendicitis TISSUE SUBMITTED: Appendix MICROSCOPIC DIAGNOSIS Appendix, appendectomy: Early acute appendicitis. AM:almaz 02/09/2022 MICROSCOPIC DESCRIPTION Slides are reviewed. GROSS DESCRIPTION Received in fixative is one container labeled with the patient's name and designated appendix. The specimen consists of a vermiform appendix measuring 6 cm in length and 0.8 cm in average diameter. No gross perforations are evident. Serial sections reveal a patent lumen. The specimen is serially sectioned and totally submitted in two cassettes. / AM:almaz 02/08/2022 TC:2 [facility]: [id number]
--- NOTE | 2022-02-06 09:54 | CT_ITS ---
INDICATION: RLQ pain EXAMINATION: CT ABDOMEN AND PELVIS WITH CONTRAST - CT Abdomen And Pelvis W/ Contrast Injection TECHNIQUE: Helically acquired images were obtained of the abdomen and pelvis following IV contrast. A radiation dose optimization technique was used for this scan. IV Contrast dosage and agent: Oral contrast: None. COMPARISON: 02/05/2022. FINDINGS: LOWER CHEST: Lung bases are clear. No cardiomegaly or pericardial effusion. LIVER: Hepatomegaly. No focal mass. GALLBLADDER AND BILIARY TREE: Not visualized which may be contracted or surgically removed. No intra- or extrahepatic biliary ductal dilation. PANCREAS: No focal cystic or solid mass. SPLEEN: Normal size without focal cystic or solid mass. ADRENAL GLANDS: No nodules. KIDNEYS AND URETERS: Normal renal size and position. No hydronephrosis. PERITONEUM: No ascites or free air. No other fluid collection. BOWEL: Nonspecific fluid-filled small bowel loops. The appendix is suboptimally visualized. No evidence of acute diverticulitis. No focal inflammatory change. LYMPH NODES: No enlarged mesenteric or retroperitoneal lymph nodes. VESSELS: Aorta is non-dilated. URINARY BLADDER: Unremarkable. REPRODUCTIVE ORGANS: Status post hysterectomy. No pelvic mass. Trace of free fluid in the pelvis. Probable small left adnexal cyst.. ABDOMINAL WALL: Small umbilical hernia containing fat. BONES: Degenerative changes at the level of L5-S1. CT/Abdomen/Pelvis W IV Cont ONLY IMPRESSION: 1. Nonspecific fluid-filled small bowel loops without evidence of bowel obstruction. Mild ileus or enteritis is possible 2. No focal acute inflammatory process. 3. Trace of free fluid in the pelvis. 4. Hepatomegaly. Electronically Signed: Jack Langley MD at 11:27 EDT ,
--- NOTE | 2022-02-06 09:55 | EDS_ITS ---
HPI HPI - GI History of Present Illness Chief Complaint: Abd Pain Informant: patient Abdominal Pain/Flank Pain Onset: Yesterday Context: Gradual Onset Timing: Continuous Quality: Sharp Location: RLQ Current Severity: Severe Maximum Severity: Severe Worsened by: Car ride and Movement Relieved by: Remaining Still Nausea/Vomiting/Emesis GI Symptom: Positive for Nausea; Negative for Vomiting Diarrhea/Melena/Hematochezia GI Symptom: Negative for Diarrhea, Melena or Hematochezia Associated Symptoms Associated Symptoms: Negative for Dysuria, Frequency, Hematuria or Urgency Narrative Narrative: 36-year-old female presenting with right lower quadrant pain that started yesterday gradually, progressively worsening overnight and this morning, associate with nausea. Patient has had prior cholecystectomy and partial hysterectomy. She has had both kidney stones and ruptured ovarian cysts in the past, and states this feels nothing like either 1 of those. Furthermore, she had a CT scan last month that showed a 2 mm appendicolith. She had a consulta tion with Dr. Nuno with surgery, at that time they opted not to do any surgery. [facility] Medical History Abdominal pain Abnormal urinalysis Abscess of left axilla Annular tear of lumbar disc Anxiety Anxiety Arthritis Asthma Cardiology follow-up encounter Carpal tunnel syndrome Chest pain Chronic constipation Chronic pain Degenerative disc disease Degenerative disc disease at L5-S1 level Depression Generalized anxiety disorder with panic attacks H/O breast lump Hiatal hernia Hidradenitis suppurativa History of COVID-19 History of hiatal hernia History of Holter monitoring History of kidney stones History of steroid therapy Hx of cystic acne Hx of hypoglycemia Hypocalcemia Hypocalcemia syndrome Hypoglycemia Hypokalemia Hypothyroidism Injury of head and neck Irregular heart beat Leg cramps Pelvic pain Polycystic ovaries Post-surgical hypoparathyroidism Postoperative hypothyroidism Postsurgical hypoparathyroidism Right flank pain Right lower quadrant pain Right renal stone Seasonal allergies Shortness of breath on exertion Smoker Suprapubic discomfort Syncope Tinea pedis of both feet TMJ (temporomandibular joint syndrome) Upper respiratory infection Ureteral calculus, right Urinary frequency Urinary tract infection Vertigo Vitamin deficiency Wears dentures Home Medications acetaminophen 325 mg capsule (Tylenol) 650 mg PO ONCE PRN Pain 12/04/20 [History Last Taken Unknown] hydrocortisone 1 % topical cream (Preparation H Hydrocortisone) 1 applic topical TID PRN HEMMROIDS 06/05/21 [History Last Taken Unknown] calcitriol 0.5 mcg capsule 1.5 mcg PO DINNER #90 caps 06/14/21 [Rx Last Taken 06/30/21] levothyroxine 125 mcg tablet 125 mcg PO DAILY #90 tabs 06/14/21 [Rx Last Taken 12/10/21] ondansetron 4 mg disintegrating tablet 4 mg PO Q6H PRN nausea and vomiting #10 tabs 06/29/21 [Rx Last Taken 12/10/21] tizanidine 4 mg tablet (Zanaflex) 4 mg PO TID PRN muscle spasticity 10/01/21 [History Last Taken Unknown] dicyclomine 20 mg tablet 20 mg PO PRN PRN IBS 11/24/21 [History Last Taken Unknown] cholecalciferol (vitamin D3) 25 mcg (1,000 unit) capsule (Vitamin D3) 25 mcg PO QWEEK 12/07/21 [History Last Taken Unknown] oxycodone-acetaminophen 5 mg-325 mg tablet (Percocet) 1 tab PO Q6H PRN pain 3 days #12 tabs 12/09/21 [Rx Last Taken Unknown] promethazine 12.5 mg tablet 12.5 mg PO TID PRN nausea and vomiting #20 tabs 01/07/22 [Rx Last Taken Unknown] prednisone 10 mg tablet See Rx Instructions PO QDAY #30 tabs 01/22/22 [Rx Last Taken Unknown] Allergy/AdvReac Type Severity Reaction Status Date / Time codeine Allergy can't Verified 02/06/22 09:41 sleep; itching fluoxetine [From Prozac] Allergy causes Verified 02/06/22 09:41 manic state naproxen Allergy nose bleed Verified 02/06/22 09:41 Family History Father Alcoholism Mother Anemia Depression Hypertension Hyperlipemia Diabetes Grandfather Diabetes Myocardial infarction Grandmother Breast cancer Diabetes Surgical History H/O thyroidectomy History of cholecystectomy History of esophagogastroduodenoscopy (EGD) History of incision and drainage History of partial hysterectomy History of thyroidectomy History of total hysterectomy S/P hysterectomy Social History household members: none Smoking Status: Current every day smoker tobacco type: cigarettes Tobacco: How many years used: 20 alcohol intake: never substance use type: does not use what type of physical activity do you participate in: none ROS ROS ED Constitutional Constitutional ED: Reports anorexia and malaise; Denies chills or fever(s) Eyes Eyes: Denies change in vision or diplopia ENT ENT ED: Denies rhinorrhea or sore throat Cardiovascular Cardiovascular: Denies chest pain or palpitations Respiratory/Chest Respiratory/Chest: Denies cough or dyspnea Gastrointestinal Gastrointestinal: Reports as per HPI, abdominal pain and nausea; Denies diarrhea or vomiting Genitourinary Genitourinary ED: Denies dysuria or hematuria Musculoskeletal Musculoskeletal: Denies back pain or neck pain Integumentary Denies abscess or rash Neurologic Neurologic: Denies headache(s), paresthesias or weakness Psychiatric Psychiatric: Denies anxiety or suicidal thoughts EXAM Physical Exam Const Vital Signs: 02/06/22 09:39 02/06/22 12:13 Temperature 97.0 F L Temperature Source Temporal Pulse Rate 85 49 L Respiratory Rate 16 18 Blood Pressure 134/80 H 104/66 Blood Pressure Mean 98 78 Pulse Ox 100 98 Oxygen Delivery Method Room Air Positive well nourished and well developed General Appearance ED: well developed and NAD HEENT Reports moist mucous membranes normocephalic and atraumatic Eyes PERRL and EOMs intact bilaterally Neck full ROM and supple Resp normal respiratory effort and clear to auscultation bilaterally Cardio regular rate, regular rhythm and no murmurs GI non-distended GI Narrative: Severely tender in the right lower quadrant focusing at McBurney's point. Some involuntary guarding. No rebound. Positive Rovsing, psoas, and obturator signs. Auscultation: normoactive bowel sounds Palpation: soft Back/Spine no CVA tenderness General Back: other FROM Extremity normal to inspection General Extremety ED: Negative for edema, pulses abnormal or tenderness General Extremity: Negative for edema or pulses abnormal Neuro oriented x3, CN's II-XII intact bilaterally and no sensory deficits noted Sensorium / Orientation: awake and alert Motor Exam: strength 5/5 throughout Psych mental status grossly normal and thought process normal Skin no rashes or lesions noted and no wounds MDM MDM MDM Narrative Medical decision making narrative: Work-up including CT obtained, but I discussed with Dr. Rbo the on-call surgeon right away and provided the patient with Zosyn as this is very consistent with classic appendicitis especially in context of her having a known appendicolith. Labs are noted, CT initially was read as unremarkable for appendicitis, I discussed with surgery who reviewed the films and spoke with the radiologist, who then altered his interpretation as probable early appendicitis although it does appear that the appendicolith is no longer there. Plan is for surgery, will admit. Patient doing better with pain medications which will be redosed as needed. Lab Data Attestation: I reviewed the patient's lab results. Labs: Laboratory Results - last 24 hr 02/06/22 02/06/22 02/06/22 09:55 09:55 10:05 WBC 10.6 RBC 4.73 Hgb 14.5 Hct 41.8 MCV 88.4 MCH 30.7 MCHC 34.7 RDW Std Deviation 39.9 RDW Coeff of Jenn 12.3 Plt Count 312 MPV 11.2 Immature Gran % (Auto) 0.200 Neut % (Auto) 58.4 Lymph % (Auto) 31.3 [place] % (Auto) 7.3 Eos % (Auto) 1.8 Baso % (Auto) 1.0 Absolute Neuts (auto) 6.2 Absolute Lymphs (auto) 3.32 Nucleated RBC % 0 Sodium 139 Potassium 3.5 Chloride 105 Carbon Dioxide 27.0 Anion Gap 7 BUN 14 Creatinine 1.06 H Estim Creat Clear Calc 77.82 Est GFR (MDRD) Af Amer 75 Est GFR (MDRD) Non-Af 62 BUN/Creatinine Ratio 13.2 Glucose 103 Calcium 8.1 L Urine Color Yellow Urine Clarity Clear Urine pH 5.0 Ur Specific [place] 1.020 Urine Protein Negative Urine Glucose (UA) Normal Urine Ketones 5 H Urine Occult Blood 25 H Urine Nitrite Negative Urine Bilirubin Negative Urine Urobilinogen Normal Ur Leukocyte Esterase Negative Urine RBC 0 SEEN Urine WBC 0 SEEN Ur Squamous Epith Cells 0-5 SEEN Urine Bacteria 0 SEEN Urine Mucus 0 SEEN Radiography Diagnostic Testing: Clinical Impression(s) from Imaging Studies Abdomen/Pelvis CT 02/06/22 09:54 IMPRESSION: 1. Nonspecific fluid-filled small bowel loops without evidence of bowel obstruction. Mild ileus or enteritis is possible 2. No focal acute inflammatory process. 3. Trace of free fluid in the pelvis. 4. Hepatomegaly. Electronically Signed: Jack Langley MD at 11:27 EDT , Discharge Plan Dx/Rx/DC Orders Clinical Impression: Acute appendicitis Disposition Disposition: Acute Care Hospital [facility]
[2022-02-06 10:08] LABS: Absolute Lymphocyte Count 3.32 X10^3/uL (0.83-4.51); Absolute Neutrophil Count 6.2 X10^3/uL (2.0-7.7); Basophil# 0.11 X10^3/uL; Eosinophil# 0.19 X10^3/uL; Eosinophils% 1.8 % (0-5); Hematocrit 41.8 % (37-47); Hemoglobin 14.5 g/dL (12.0-15.0); Lymphocyte # 3.32 X10^3/ul (0.83-4.51); Lymphocyte % 31.3 % (19-41); Mean Corp Hgb Conc 34.7 g/dL (32-36); Mean Corpuscular Hgb 30.7 pg (27.0-32.0); Mean Corpuscular Volume 88.4 fL (81-99); Mean Platelet Vol. 11.2 fl (6.2-12.0); Monocyte# 0.78 X10^3/uL; Monocyte% 7.3 % (0-10); NRBC Flagged by Analyzer 0 % (0-5); Neutrophil % 58.4 % (47-70); Platelet Count 312 K/mm3 (150-450); RBC Distribution Width CV 12.3 % (11.6-14.6); RBC Distribution Width SD 39.9 fl (35.1-43.9); Red Blood Count 4.73 M/mm3 (4.2-5.4); White Blood Count 10.6 K/mm3 (4.4-11.0)
[2022-02-06] MEDS: Ondansetron 4 MG/2 ML Vial IV ×2 (10:08→13:47)
[2022-02-06] MEDS: Morphine 4 MG/ML Syringe IV ×2 (10:08→12:28)
[2022-02-06 10:12] LABS: Bacteria 0 SEEN /hpf (None Seen); Mucous, Urine 0 SEEN /hpf (<or=2+); Red Blood Cells-Urine 0 SEEN /hpf (0-5); White Blood Cells 0 SEEN /hpf (0-5)
[2022-02-06 10:19] LABS: Anion Gap 7 (5-15); BUN 14 mg/dL (7-18); BUN/Creat Ratio 13.2 RATIO (10-20); Calcium,Total 8.1 mg/dL (8.5-10.1); Chloride 105 mmol/L (98-107); Creatinine, Serum 1.06 mg/dL (0.55-1.02); EST Glomerular Filtration Rate 62 mL/min (>60); Est Glom Filt Rate - Afr Amer 75 mL/min (>60); Estimated Creatinine Clearance 77.82 ml/min; Glucose 103 mg/dL (74-106); Potassium 3.5 mmol/L (3.5-5.1); Sodium Level 139 mmol/L (136-145)
[2022-02-06 10:25] LABS: Color, Urine Yellow (Yellow); Glucose, Dipstick Normal (Normal); Ketone-Dipstick 5 mg/dl (Negative); Leukocyte Esterase-Dipstick Negative /ul (Negative); Nitrite-Dipstick Negative (Negative); Occult Blood-Urine 25 /ul (Negative); Protein-Dipstick Negative (Negative); Urine Bilirubin Dipstick Negative (Negative); Urine Clarity Clear (Clear); Urine Urobilinogen Normal (Normal)
[2022-02-06 10:49] LABS: Squamous Epithelial Cells - UA 0-5 SEEN /hpf (5-10)
[2022-02-06] MEDS: 0.9% Normal Saline 1,000 ML 125 ML IV ×2 (11:27→13:41)
[2022-02-06] MEDS: 0.9% Saline Lock 10 ML Syringe IV (13:46)
--- NOTE | 2022-02-06 14:29 | HP.PCM_ITS ---
HPI - General General Date of Admission: 02/06/22 HPI Narrative AMY VILLEDA, is a 36 F who presents to the ER due to to right lower quadrant pain this morning. Patient states yesterday she was having some stabbing mid abdominal pain which sort of came and gone but progressively got worse. Patient did have nausea this morning denies any vomiting. Patient last ate a banana at [address] abdomen pelvis was possible early acute appendicitis with appendix measuring 8 to 9 mm. Patient does have an right adnexal cyst as well. [facility] Medical History (Updated 02/06/22 @ 14:[address] Tara Rob MD) Abdominal pain Abnormal urinalysis Abscess of left axilla Annular tear of lumbar disc Anxiety Anxiety Arthritis Asthma Cardiology follow-up encounter Carpal tunnel syndrome Chest pain Chronic constipation Chronic pain Degenerative disc disease Degenerative disc disease at L5-S1 level Depression Generalized anxiety disorder with panic attacks H/O breast lump Hiatal hernia Hidradenitis suppurativa History of COVID-19 History of hiatal hernia History of Holter monitoring History of kidney stones History of steroid therapy Hx of cystic acne Hx of hypoglycemia Hypocalcemia Hypocalcemia syndrome Hypoglycemia Hypokalemia Hypothyroidism Injury of head and neck Irregular heart beat Kidney stones Leg cramps Pelvic pain Polycystic ovaries Post-surgical hypoparathyroidism Postoperative hypothyroidism Postsurgical hypoparathyroidism Right flank pain Right lower quadrant pain Right renal stone Seasonal allergies Shortness of breath on exertion Smoker Suprapubic discomfort Syncope Tinea pedis of both feet TMJ (temporomandibular joint syndrome) Upper respiratory infection Ureteral calculus, right Urinary frequency Urinary tract infection Vertigo Vitamin deficiency Wears dentures Home Medications tizanidine 4 mg tablet (Zanaflex) 4 mg PO TID PRN muscle spasticity 10/01/21 [History Last Taken 02/05/22] calcitriol 0.5 mcg capsule 1.5 mcg PO QHS calcium 02/06/22 [History Last Taken 02/05/22] levothyroxine 125 mcg tablet 125 mcg PO DAILY thyroid 02/06/22 [History Last Taken 02/06/22] prednisone 10 mg tablet See Taper PO DAILY rash on back 02/06/22 [History Last Taken 02/05/22] Allergy/AdvReac Type Severity Reaction Status Date / Time codeine Allergy can't Verified 02/06/22 09:41 sleep; itching fluoxetine [From Prozac] Allergy causes Verified 02/06/22 09:41 manic state naproxen Allergy nose bleed Verified 02/06/22 09:41 Family History Father Alcoholism Mother Anemia Depression Hypertension Hyperlipemia Diabetes Grandfather Diabetes Myocardial infarction Grandmother Breast cancer Diabetes Surgical History (Updated 02/06/22 @ 13:23 by Sulma Lockhart) H/O thyroidectomy History of cholecystectomy History of esophagogastroduodenoscopy (EGD) History of incision and drainage History of partial hysterectomy History of thyroidectomy History of total hysterectomy S/P hysterectomy Status post laser lithotripsy of ureteral calculus Social History household members: none Smoking Status: Current every day smoker tobacco type: cigarettes Tobacco: How many years used: 20 alcohol intake: never substance use type: does not use what type of physical activity do you participate in: none Vital Signs Vital Signs Vital Signs: 02/06/22 09:39 02/06/22 12:13 02/06/22 12:16 Temperature 97.0 F L 97 F L Temperature Source Temporal Temporal Pulse Rate 85 49 L 49 L Respiratory Rate 16 18 18 Respiratory Effort Respiratory Depth Respiratory Pattern Blood Pressure 134/80 H 104/66 104/66 Blood Pressure Mean 98 78 78 Pulse Ox 100 98 98 Oxygen Delivery Method Room Air Room Air 02/06/22 13:45 Temperature Temperature Source Pulse Rate Respiratory Rate Respiratory Effort Normal Non-Labored Respiratory Depth Normal Respiratory Pattern Normal Blood Pressure Blood Pressure Mean Pulse Ox Oxygen Delivery Method Room Air Weight Weight: 167 lb 8 oz Body Mass Index (BMI) 24.0 Physical Exam Const alert, oriented x3 and no apparent distress HEENT normocephalic and head/scalp atraumatic Resp normal respiratory effort Cardio regular rate GI soft to palpation; Negative for non-distended Palpation: tender RLQ; Negative for guarding Extremity no clubbing, cyanosis or edema Neuro CN's II-XII intact bilaterally Psych mental status grossly normal Results Lab / Micro Data Result Diagrams: 02/06/22 09:55 02/06/22 09:55 Labs: Laboratory Results - last 24 hr 02/06/22 09:55: WBC 10.6, RBC 4.73, Hgb 14.5, Hct 41.8, MCV 88.4, MCH 30.7, MCHC 34.7, RDW Std Deviation 39.9, RDW Coeff of Jenn 12.3, Plt Count 312, MPV 11.2, Immature Gran % (Auto) 0.200, Neut % (Auto) 58.4, Lymph % (Auto) 31.3, [place] % (Auto) 7.3, Eos % (Auto) 1.8, Baso % (Auto) 1.0, Absolute Neuts (auto) 6.2, Absolute Lymphs (auto) 3.32, Nucleated RBC % 0 02/06/22 09:55: Sodium 139, Potassium 3.5, Chloride 105, Carbon Dioxide 27.0, Anion Gap 7, BUN 14, Creatinine 1.06 H, Estim Creat Clear Calc 77.82, Est GFR (MDRD) Af Amer 75, Est GFR (MDRD) Non-Af 62, BUN/Creatinine Ratio 13.2, Glucose 103, Calcium 8.1 L 02/06/22 10:05: Urine Color Yellow, Urine Clarity Clear, Urine pH 5.0, Ur Specific [place] 1.020, Urine Protein Negative, Urine Glucose (UA) Normal, Urine Ketones 5 H, Urine Occult Blood 25 H, Urine Nitrite Negative, Urine Bilirubin Negative, Urine Urobilinogen Normal, Ur Leukocyte Esterase Negative, Urine RBC 0 SEEN, Urine WBC 0 SEEN, Ur Squamous Epith Cells 0-5 SEEN, Urine Bacteria 0 SEEN, Urine Mucus 0 SEEN Radiology Impression Abdomen/Pelvis CT 02/06/22 09:54 IMPRESSION: 1. Nonspecific fluid-filled small bowel loops without evidence of bowel obstruction. Mild ileus or enteritis is possible 2. No focal acute inflammatory process. 3. Trace of free fluid in the pelvis. 4. Hepatomegaly. Electronically Signed: Jack Langley MD at 11:27 EDT , ADDENDUM: 02/06/22 7601 IMPRESSION: undefined Assessment & Plan Assessment/Plan (1) Acute appendicitis: PLAN: Plan 1. Discussed procedure laparoscopic appendectomy, possible open along with the risk but not limited to bleeding, infection/abscess, injury to another organ (small bowel, colon, etc.), adhesion, hernia at incision sites, and anesthesia. Patient no further questions this time. Tara Rob M.D. Pager: [phone] [facility] [address] [place] [address], [address] [place] [address] Office: [phone]
[2022-02-06] MEDS: Lactated Ringers 1,000 ML 15 ML IV (14:43)
[2022-02-06 15:00] LABS: Thyroid Stim Hormone (TSH) 5.65 uIU/mL (0.358-3.74)
[2022-02-06] MEDS: Bupivacaine 0.25% 30 ML Vial (15:45)
--- NOTE | 2022-02-06 15:53 | OP.PCM_ITS ---
Report of Operation Date of Procedure: 02/06/22 Pre-Operative Diagnosis: Right lower quadrant pain, acute appendicitis, right o varian cyst Post-Operative Diagnosis: Right lower quadrant pain, minimal inflammation of the appendix, right ovarian cyst Surgery/Procedure Performed:: Laparoscopic appendectomy Surgeon: Tara Rob Type of Anesthesia: General/Supplemental Anesthesiologist: Kevin Pruett Special Medications: Zosyn 3.375 g IV x1 in the ER for acute appendicitis Specimen's removed: Appendix Estimated Blood Loss (mL): < 10 CC Fluids Replaced: Per anesthesia Description of Procedure: Indications: 36-year-old female presented to the ER with new right lower quadrant pain this morning/overnight. On workup she was found to have acute appendicitis, right ovarian cyst on CT and a leukocytosis of 10.6. Patient was started on antibiotics in the ER for acute appendicitis-Zosyn 3.375 g IV x1 Description of the procedure: The patient was placed on operating table in supine position. General anesthesia was induced. A timeout was completed verifying correct patient, procedure, position and special equipment prior to beginning procedure. Abdomen was prepped and draped in usual sterile fashion. Incision was made in the natural skin line above the umbilicus with a 15 blade scalpel. The fascia was elevated and incised. Entry into the peritoneum was confirmed visually and no bowel was noted in the vicinity of the incision. The Brandt trocar was placed under direct vision. Abdomen insufflated with a pressure of 12-15 mmHg. Patient tolerated insertion well. The scope was inserted and the abdomen inspected. No injuries from initial trocar placement were noted. Minimal amount of fluid was seen in the right lower quadrant. An direct visualization 2 -5 mm trocars were placed one above the symphysis pubis and below the hairline and one in the left lower quadrant lateral to the rectus muscle. Care is taken to avoid injury to the bladder and inferior epigastric vessels. The table was placed in Trendelenburg position with the right side elevated. The appendix was grasped with atraumatic grasper and elevated. It was noted to be minimally inflamed near base. A window was developed in the mesoappendix at the point between the base of the appendix and the cecum. An endoscopic 45 mm linear cutting stapler blue load was then used to divide and staple the base of the appendix. Enseal was used to divide the mesoappendix. The appendix was withdrawn into the Brandt trocar after being placed endoscopically retrieval bag. Appendix was sent to pathology. The appendiceal stump was then irrigated and hemostasis was assured. Fluid was suctioned, pictures of the right ovarian cyst were taken. Secondary trochars were removed under direct visualization. No bleeding was noted trocar sites. The laparoscope withdrawn and the umbilical trocar removed. The abdomen was allowed to collapse. Local anesthesia of 18 mL of 0.25% Marcaine was used at the incision sites. The umbilical trocar site was closed with the [id number] 0 Vicryl suture. The skin was closed using sutures of 4-0 Monocryl and Steri-Strips. The patient was extubated. The patient tolerated the procedure well and was taken to the postanesthesia care unit in satisfactory condition. Complications none
--- NOTE | 2022-02-06 15:56 | DCINST_ITS ---
Discharge Instructions Diet Discharge Diet: Light diet - advance as tolerated Activity Discharge Activity: May Not Drive (while taking narcotic pain medications.) May shower in (days): 1 Lifting Restrictions: no lifting >20 lbs x 2 wks, no strenuous exercise for 4 wks Dressing / Incision Call your doctor if your incision/area has: Continuous Slow Oozing, Sudden Increased Bleeding, Increased Pain/ Swelling, Increased Redness, Foul Smelling Discharge and Swelling at the incision site Call your doctor if you observe: Fever of 101 or Higher Remove Dressing in: 2 days Cleanse incision/area with: Soap & Water Additional Dressing/Incision Instructions:: Steri-Strips will fall off in 7 to 10 days, if they do not fall off okay to remove after 10 days. Follow Up Care Please Follow Up With: Tara Rob MD When: Call the office for a follow-up appointment 2 weeks; after 5 PM and on the weekends call [phone] with any concerns. Test Results: Test results from this visit will be discussed in further detail at your follow- up appointment, if applicable. Discharge Plan Admission Admit Date/Time: 02/06/22 12:13 Attending Provider: Tara Rob Primary Care Provider: Levi Kent Discharge Orders/Prescriptions Prescriptions: New oxycodone-acetaminophen 5-325 mg tablet 1 tab PO Q6H PRN (Reason: pain) 3 Days Qty: 10 0RF Continued tizanidine [Zanaflex] 4 mg tablet 4 mg PO TID PRN (Reason: muscle spasticity) prednisone 10 mg tablet See Taper PO DAILY Taper: Prednisone Taper 40 mg WITH BREAKFAST for 3 Days and 0 Hour 20 mg WITH BREAKFAST for 3 Days and 0 Hour 10 mg WITH BREAKFAST for 3 Days and 0 Hour Label Comments: Take 4 tabs daily for 3 days, then 2 tabs daily for 3 days, then 1 tab daily for 3 days with food. calcitriol 0.5 mcg capsule 1.5 mcg PO QHS Label Comments: TAKE 3 CAPSULES DAILY BY MOUTH AT DINNER levothyroxine 125 mcg tablet 125 mcg PO DAILY Referrals / Follow Up: Levi Kent MD [Primary Care Provider] - Disposition Disposition (needs filled in before D/C Order can be placed): Home, Self Care
[2022-02-06] MEDS: oxyCODONE 5 MG Tablet PO (18:47)
== END 2022-02-06 22:07 | disposition home or self-care (01) ==
LOC: ED 10:00 → MS3 13:05
PROVIDERS: Anesthesiology; Admitting Provider Surgery; Emergency Provider Emergency Medicine; PCP Internal Medicine; Visit Provider Surgery
PROC: 0DTJ4ZZ Resection of Appendix, Percutaneous Endoscopic Approach (ICD-10-PCS; CPT 44970; principal; 2022-02-06 15:00)
DX: K35.80 Unspecified acute appendicitis (principal); F17.210 Nicotine dependence, cigarettes, uncomplicated; N83.201 Unspecified ovarian cyst, right side; Z86.16 Personal history of COVID-19; Z79.899 Other long term (current) drug therapy; M19.90 Unspecified osteoarthritis, unspecified site; J45.909 Unspecified asthma, uncomplicated; E89.0 Postprocedural hypothyroidism; Z79.890 Hormone replacement therapy; G89.4 Chronic pain syndrome
CPT/HCPCS: 44970; 00840; C1760; 74177; 80048; 81001; 84443; 85025; 88304; 96365; 96366; 96375; 96376; 99251; 99284; 99406; J7030; J7120; Q9967; A4216; G0463; J2405

== ENCOUNTER → 2022-02-16 | Outpatient (CLI) | payer MEDICAID, SELFPAY ==
[2022-02-16 10:24] LABS: Bacteria 0 SEEN /hpf (None Seen); Mucous, Urine 0 SEEN /hpf (<or=2+); Red Blood Cells-Urine 0 SEEN /hpf (0-5); White Blood Cells 0 SEEN /hpf (0-5)
[2022-02-16 10:29] LABS: Color, Urine Yellow (Yellow); Glucose, Dipstick Normal (Normal); Ketone-Dipstick 5 mg/dl (Negative); Leukocyte Esterase-Dipstick Negative /ul (Negative); Nitrite-Dipstick Negative (Negative); Occult Blood-Urine 50 /ul (Negative); Protein-Dipstick Negative (Negative); Urine Bilirubin Dipstick Negative (Negative); Urine Clarity Sl. Cloudy (Clear); Urine Urobilinogen Normal (Normal)
[2022-02-16 10:36] LABS: Squamous Epithelial Cells - UA 0-5 SEEN /hpf (5-10)
== END | disposition home or self-care (01) ==
LOC: PAVLAB 09:58
PROVIDERS: PCP Internal Medicine; Referring Provider Physician Assistant; Visit Provider Physician Assistant
DX: R39.15 Urgency of urination (principal)
CPT/HCPCS: 81001

== ENCOUNTER → 2022-02-22 | Outpatient (CLI) | payer MEDICAID, SELFPAY ==
[2022-02-22 12:33] LABS: ALB/GLOB Ratio 1.2 RATIO (0.9-2.4); AST(SGOT) 11 U/L (15-37); Alanine Aminotransfer ALT/SGPT 26 U/L (13-56); Alkaline Phosphatase 48 U/L (45-117); Anion Gap 9 (5-15); BUN 11 mg/dL (7-18); BUN/Creat Ratio 10.5 RATIO (10-20); Calcium,Total 8.3 mg/dL (8.5-10.1); Chloride 102 mmol/L (98-107); Creatinine, Serum 1.05 mg/dL (0.55-1.02); EST Glomerular Filtration Rate 62 mL/min (>60); Est Glom Filt Rate - Afr Amer 75 mL/min (>60); Globulin 3.4 g/dL (2.2-4.2); Glucose 80 mg/dL (74-106); Potassium 3.8 mmol/L (3.5-5.1); Protein, Total 7.4 g/dL (6.4-8.2); Sodium Level 139 mmol/L (136-145); T4 Free Direct 1.39 ng/dL (0.76-1.46); Thyroid Stim Hormone (TSH) 1.75 uIU/mL (0.358-3.74)
== END | disposition home or self-care (01) ==
LOC: BIMLAB 09:34
PROVIDERS: PCP Internal Medicine; Referring Provider Nurse Practitioner Family; Visit Provider Nurse Practitioner Family
DX: E89.2 Postprocedural hypoparathyroidism (principal); E89.0 Postprocedural hypothyroidism
CPT/HCPCS: 36415; 80053; 84439; 84443

== ENCOUNTER → 2022-02-26 | Outpatient (CLI) | payer MEDICAID, SELFPAY ==
--- NOTE | 2022-02-26 07:21 | US_ITS ---
STUDY: ULTRASOUND OF THE FEMALE PELVIS - COMPLETE REASON FOR EXAM: Female, 36 years old. OV CYST seen on CT 02/06/22 -- CT SAID THE CYST IS ON THE LEFT, THE ORDERING DOCTOR SAID IT IS ON THE RT LMP: Patient is status post hysterectomy. TECHNIQUE: Transabdominal and Transvaginal TECHNICAL QUALITY: Adequate. COMPARISON: Comparison is made with prior CT scan of the abdomen and pelvis dated 02/06/2022. FINDINGS: The patient is status post hysterectomy. The right ovary is visualized. The right ovary measures 2.8 cm x 2.5 cm x 1.3 cm. There is no right ovarian cyst or ovarian mass. There is no visualized right adnexal mass or complex lesion. There is normal arterial and normal venous vascularity. The left ovary is visualized. The left ovary measures 5.1 cm x 3.8 cm x 2.0 cm. There is a 3.1 cm x 2.8 cm x 1.8 cm cyst in the left ovary. This corresponds to the CT findings. There is no visualized left adnexal mass or complex lesion. There is normal arterial and normal venous vascularity. There is no fluid in the cul-de-sac. US/Pelvic (Non ) IMPRESSION: 3.1 cm x 2.8 cm by 1.8 cm septated cyst in the left ovary. Follow-up recommended. Electronically Signed: Dimitris Stewart MD at 14:11 EST ,
== END | disposition home or self-care (01) ==
LOC: OPUS 07:19 → US 07:20
PROVIDERS: PCP Internal Medicine; Visit Provider Surgery
DX: N83.201 Unspecified ovarian cyst, right side (principal); Z90.49 Acquired absence of other specified parts of digestive tract; R10.31 Right lower quadrant pain; R10.2 Pelvic and perineal pain
CPT/HCPCS: 76830; 76856

== ENCOUNTER → 2022-03-08 | Outpatient (CLI) | payer MEDICAID, SELFPAY | END | disposition home or self-care (01) | LOC: LABSPEC 11:30 | PROVIDERS: PCP Internal Medicine; Visit Provider Student in an Organized Health Care Education/Training Program | DX: N39.0 Urinary tract infection, site not specified (principal) | CPT/HCPCS: 87086 ==

== ENCOUNTER 2022-04-16 17:16 | Emergency (ER) | payer MEDICAID, SELFPAY ==
[2022-04-16 17:17] VITALS: BP 142/85; PULSE 77; RESP 18; TEMP 36.3; O2SAT 100; BMI 23.9
--- NOTE | 2022-04-16 17:22 | EKG12_ITS ---
Test Reason : CP/DIZZY/PALPS Blood Pressure : / mmHG Vent. Rate : 066 BPM Atrial Rate : 066 BPM P-R Int : 154 ms QRS Dur : 084 ms QT Int : 410 ms P-R-T Axes : 070 048 052 degrees QTc Int : 429 ms Normal sinus rhythm Normal ECG Confirmed by HESHAM BONNER, VICENTE ([id number]), content editor CELIA BYRD ([id number]) on 04/19/2022 11:04:29 AM Referred By: FELTON/MANUEL Confirmed By:TODD DAHL MD
--- NOTE | 2022-04-16 17:30 | RAD_ITS ---
STUDY: X-RAY CHEST REASON FOR EXAM: Female, 36 years old. CHEST PAIN chest pain TECHNIQUE: XR Chest 1 View COMPARISON: 01/06/2022 FINDINGS: There is no demonstrated pleural abnormality. Normal size heart. Normal mediastinum and kaylin. Normal visualized pulmonary arteries. Normal visualized aortic arch and descending thoracic aorta. Normal visualized thoracic spine. Normal visualized ribs, clavicles, and shoulders. There is no demonstrated abnormality of the visualized soft tissue structures of the upper abdomen. RAD/Chest 1 View (Portable) IMPRESSION: There are no acute findings. Electronically Signed: Skyler Eaton MD at 17:51 EST ,
[2022-04-16 18:13] LABS: Absolute Lymphocyte Count 4.17 X10^3/uL (0.83-4.51); Absolute Neutrophil Count 5.1 X10^3/uL (2.0-7.7); Basophil# 0.08 X10^3/uL; Basophil% 0.8 % (0-1); Eosinophil# 0.21 X10^3/uL; Eosinophils% 2.1 % (0-5); Hematocrit 41.9 % (37-47); Hemoglobin 14.3 g/dL (12.0-15.0); Lymphocyte # 4.17 X10^3/ul (0.83-4.51); Lymphocyte % 41.2 % (19-41); Mean Corp Hgb Conc 34.1 g/dL (32-36); Mean Corpuscular Hgb 29.9 pg (27.0-32.0); Mean Corpuscular Volume 87.7 fL (81-99); Mean Platelet Vol. 11.2 fl (6.2-12.0); Monocyte% 5.9 % (0-10); NRBC Flagged by Analyzer 0 % (0-5); Neutrophil # 5.05 X10^3/uL (2.7-7.7); Neutrophil % 49.8 % (47-70); Platelet Count 349 K/mm3 (150-450); RBC Distribution Width SD 38.9 fl (35.1-43.9); Red Blood Count 4.78 M/mm3 (4.2-5.4); White Blood Count 10.1 K/mm3 (4.4-11.0)
[2022-04-16 18:22] LABS: Prothrombin Time (Protime)PT. 12.8 SECONDS (11.7-14.9)
[2022-04-16 18:46] LABS: Anion Gap 5 (5-15); BUN 23 mg/dL (7-18); BUN/Creat Ratio 24.6 RATIO (10-20); Calcium,Total 8.5 mg/dL (8.5-10.1); Chloride 107 mmol/L (98-107); Creatinine, Serum 0.93 mg/dL (0.55-1.02); EST Glomerular Filtration Rate 71 mL/min (>60); Est Glom Filt Rate - Afr Amer 86 mL/min (>60); Estimated Creatinine Clearance 88.69 ml/min; Glucose 97 mg/dL (74-106); Potassium 3.7 mmol/L (3.5-5.1); Sodium Level 138 mmol/L (136-145); Troponin-I HS 3 pg/mL (3.0-54.0)
== END 2022-04-16 20:35 | disposition left against medical advice (07) ==
LOC: ED 20:39
PROVIDERS: PCP Internal Medicine
DX: Z53.21 Procedure and treatment not carried out due to patient leaving prior to being seen by health care provider (principal); E89.2 Postprocedural hypoparathyroidism; E89.0 Postprocedural hypothyroidism
CPT/HCPCS: 36415; 71045; 80048; 80053; 84439; 84443; 84484; 85025; 85610; 93005; A4216

== ENCOUNTER → 2022-04-16 | Outpatient (CLI) | payer MEDICAID, SELFPAY ==
[2022-04-16 12:09] LABS: ALB/GLOB Ratio 1.1 RATIO (0.9-2.4); AST(SGOT) 17 U/L (15-37); Alanine Aminotransfer ALT/SGPT 30 U/L (13-56); Albumin, Serum 3.9 g/dL (3.2-5.0); Alkaline Phosphatase 45 U/L (45-117); Anion Gap 8 (5-15); BUN 16 mg/dL (7-18); BUN/Creat Ratio 17.3 RATIO (10-20); Calcium,Total 8.6 mg/dL (8.5-10.1); Chloride 103 mmol/L (98-107); Creatinine, Serum 0.93 mg/dL (0.55-1.02); EST Glomerular Filtration Rate 72 mL/min (>60); Est Glom Filt Rate - Afr Amer 87 mL/min (>60); Globulin 3.4 g/dL (2.2-4.2); Glucose 95 mg/dL (74-106); Protein, Total 7.3 g/dL (6.4-8.2); Sodium Level 139 mmol/L (136-145); T4 Free Direct 1.07 ng/dL (0.76-1.46); Thyroid Stim Hormone (TSH) 4.19 uIU/mL (0.358-3.74)
== END | disposition home or self-care (01) ==
LOC: LAB 10:28
PROVIDERS: PCP Internal Medicine; Referring Provider Internal Medicine Endocrinology, Diabetes & Metabolism; Visit Provider Internal Medicine Endocrinology, Diabetes & Metabolism
DX: E89.0 Postprocedural hypothyroidism (principal); E89.2 Postprocedural hypoparathyroidism
CPT/HCPCS: 84439; 36415; 80053; 84443

== ENCOUNTER 2022-04-17 10:40 | Emergency (ER) | payer MEDICAID, SELFPAY ==
[2022-04-17 10:44] VITALS: BP 133/98; PULSE 97; RESP 17; TEMP 36.4; O2SAT 100; BMI 23.9
--- NOTE | 2022-04-17 11:18 | RAD_ITS ---
STUDY: X-RAY CHEST REASON FOR EXAM: Female, 36 years old. Cough TECHNIQUE: Single AP portable view of the chest. COMPARISON: April 16, 2022 FINDINGS: The lungs are clear and expanded. There is no demonstrated pleural abnormality. Normal size heart. Normal mediastinum and kaylin. Normal visualized pulmonary arteries. Normal visualized aortic arch and descending thoracic aorta. Normal visualized thoracic spine. Normal visualized ribs, clavicles, and shoulders. There is no demonstrated abnormality of the visualized soft tissue structures of the upper abdomen. RAD/Chest 1 View (Portable) IMPRESSION: Normal x-ray examination of the chest. Electronically Signed: Eder Dawson MD at 12:36 EST ,
--- NOTE | 2022-04-17 11:21 | EKG12_ITS ---
Test Reason : CP Blood Pressure : / mmHG Vent. Rate : 067 BPM Atrial Rate : 067 BPM P-R Int : 154 ms QRS Dur : 084 ms QT Int : 398 ms P-R-T Axes : 077 060 064 degrees QTc Int : 420 ms Normal sinus rhythm Normal ECG Confirmed by PAT BONNER, KIRIT ([id number]), material expeditor CELIA BYRD ([id number]) on 04/19/2022 1:39:39 PM Referred By: PC Confirmed By:KIRIT STEWART MD
--- NOTE | 2022-04-17 11:32 | EX.ED.DYSGE1 ---
HPI History of Present Illness Chief Complaint: Palpitations Narrative Narrative: Patient presents with palpitations chest pain myalgias for the past 2 days. She has a history of thyroid abnormalities however this was addressed with her doctor yesterday. She also had blood work yesterday and a normal calcium level. She has had history of calcium disorders in the past. She has not had any fevers but she has had chills. Some upper airway congestion. No shortness of breath very rare cough. PFSH [facility] Medical History Abdominal pain Abnormal urinalysis Abscess of left axilla Annular tear of lumbar disc Anxiety Anxiety Appendicitis Arthritis Asthma Cardiology follow-up encounter Carpal tunnel syndrome Chest pain Chronic constipation Chronic pain Degenerative disc disease Degenerative disc disease at L5-S1 level Depression Generalized anxiety disorder with panic attacks H/O breast lump Hiatal hernia Hidradenitis suppurativa History of COVID-19 History of hiatal hernia History of Holter monitoring History of kidney stones History of steroid therapy Hx of cystic acne Hx of hypoglycemia Hypocalcemia Hypocalcemia syndrome Hypoglycemia Hypokalemia Hypothyroidism Injury of head and neck Irregular heart beat Kidney stones Leg cramps Pelvic pain Polycystic ovaries Post-surgical hypoparathyroidism Postoperative hypothyroidism Postsurgical hypoparathyroidism Right flank pain Right lower quadrant pain Right renal stone Seasonal allergies Shortness of breath on exertion Smoker Suprapubic discomfort Syncope Tinea pedis of both feet TMJ (temporomandibular joint syndrome) Upper respiratory infection Ureteral calculus, right Urinary frequency Urinary tract infection Vertigo Vitamin deficiency Wears dentures Home Medications calcitriol 0.5 mcg capsule 1.5 mcg PO QHS calcium 02/06/22 [History Last Taken 02/05/22] levothyroxine 125 mcg tablet 125 mcg PO ANDRESON thyroid 02/06/22 [History Last Taken 02/06/22] tizanidine 4 mg tablet (Zanaflex) 4 mg PO TID PRN muscle spasticity #30 tabs 04/13/22 [Rx Last Taken Unknown] levothyroxine 125 mcg tablet 187.5 mcg PO MOTUWETHFRSA 04/17/22 [History Last Taken Unknown] Allergy/AdvReac Type Severity Reaction Status Date / Time codeine Allergy can't Verified 04/17/22 10:41 sleep; itching fluoxetine [From Prozac] Allergy causes Verified 04/17/22 10:41 manic state naproxen Allergy nose bleed Verified 04/17/22 10:41 Family History Father Alcoholism Mother Anemia Depression Hypertension Hyperlipemia Diabetes Grandfather Diabetes Myocardial infarction Grandmother Breast cancer Diabetes Surgical History H/O thyroidectomy History of appendectomy History of cholecystectomy History of esophagogastroduodenoscopy (EGD) History of incision and drainage History of partial hysterectomy History of thyroidectomy History of total hysterectomy S/P hysterectomy Status post laser lithotripsy of ureteral calculus Social History household members: none Smoking Status: Current every day smoker tobacco type: cigarettes Tobacco: How many years used: 20 alcohol intake: never substance use type: does not use what type of physical activity do you participate in: none ROS ROS ED ROS Narrative Past medical history: Reviewed, unremarkable Medications: Reviewed Social history: Noncontributory Review of systems: All systems negative except as indicated General: No fever. Some chills Eyes: No visual changes ENT: No upper airway congestion, normal voice Neck: No neck pain Cardiovascular: Slight chest pain and intermittent palpitations for 2 days. Respiratory: No shortness of breath or cough Gastrointestinal: No abdominal pain, nausea vomiting or diarrhea Genitourinary: No dysuria Musculoskeletal: Slight myalgias, she tells me these are chronic but they may be worse it is hard to tell. Skin: No rash Neurological: No memory loss, confusion or any focal weakness Psych: No recent behavioral changes Hematologic: No easy bleeding or easy bruising EXAM Physical Exam Narrative Exam Narrative: Physical exam General: Well nourished, Well developed, No Acute Distress Head: Normocephalic, Atraumatic Eyes: Conjunctiva not pale ENT: Moist mucous membranes. There is some upper airway congestion some rhinorrhea but normal posterior oropharynx other than slight postnasal drip. Neck: Supple, Nontender, No lymphadenopathy Cardiovascular: Regular rate, Regular rhythm. Normal S1 and S2. No murmurs. Respiratory: No distress, CTA bilaterally Abdomen: Soft, Nontender, Nondistended Back: Nontender, Normal Inspection. Negative for: CVA tenderness Extremities: Nontender, No edema Skin: Normal color, No rash Neurological: Alert, Normal Strength, Normal Sensation Psychological: Normal affect Const Vital Signs: 04/17/22 10:44 04/17/22 11:48 Temperature 97.5 F L Temperature Source Temporal Pulse Rate 97 Respiratory Rate 17 Respiratory Effort Normal Non-Labored Respiratory Pattern Normal Blood Pressure 133/98 H Blood Pressure Mean 109 Pulse Ox 100 Oxygen Delivery Method Room Air MDM MDM MDM Narrative Medical decision making narrative: A. Problems addressed Patient has palpitations which could be SVT A. fib, they were not diagnosed in the ED and I cannot find a reason. She also has chest pain which could lead to a cardiac event. She is found to have a normal troponin, she has been in sinus in the ED I will place her on a Holter monitor for 48 hours. If anything changes patient is to return to the emergency department. B. Amount and/or complexity of the data (2 out of 3) 1. Any 3 Review of prior external note I reviewed the patient's lab work which I ordered. 2 troponins are unremarkable. Blood work is also negative. COVID and influenza are negative. I reviewed patient's prior EKG interpreted by Dr. Diaz in the outpatient environment on 07/01/2021 which is not changed. 2. Independent interpretation of test Telemetry: Sinus rhythm in the 90s. Chest x-ray interpreted by me and radiologist is normal C. Patient was seen by me in the emergency department. I have considered the following differential diagnoses however I was able to exclude all of these through a thorough history and physical exam as well as laboratory testing: PE or any thromboembolic etiologies, myocardial infarction, aortic dissection, esophageal rupture, pneumothorax, musculoskeletal emergencies, upper abdominal pathologies such as pancreatitis, cholecystitis or choledocholithiasis, as well as ruptured bowel. I considered admission but after discussion with the patient we came to a mutual agreement that the patient is stable for discharge due to the following reasons: Heart score is: 1. PERC: Is negative Patient's exam is normal. History and physical point towards noncardiac, none thromboembolic and nonemergent etiologies. Lab Data Labs: Laboratory Results - last 24 hr 04/17/22 04/17/22 11:30 11:30 WBC 6.3 RBC 4.84 Hgb 14.5 Hct 42.9 MCV 88.6 MCH 30.0 MCHC 33.8 RDW Std Deviation 39.0 RDW Coeff of Jenn 12.1 Plt Count 315 MPV 10.9 Immature Gran % (Auto) 0.300 Neut % (Auto) 46.9 L Lymph % (Auto) 43.4 H [place] % (Auto) 6.5 Eos % (Auto) 1.6 Baso % (Auto) 1.3 H Absolute Neuts (auto) 3.0 Absolute Lymphs (auto) 2.74 Nucleated RBC % 0 Sodium 139 Potassium 3.8 Chloride 107 Carbon Dioxide 29.0 Anion Gap 3 L BUN 19 H Creatinine 0.83 Estim Creat Clear Calc 99.38 Est GFR (MDRD) Af Amer 99 Est GFR (MDRD) Non-Af 82 BUN/Creatinine Ratio 22.9 H Glucose 78 Calcium 8.4 L Total Bilirubin 0.50 AST 15 ALT 30 Alkaline Phosphatase 44 L Troponin I High Sens < 3 L Total Protein 7.3 Albumin 3.9 Globulin 3.4 Albumin/Globulin Ratio 1.1 Radiography Diagnostic Testing: Clinical Impression(s) from Imaging Studies Chest X-Ray 04/17/22 11:18 IMPRESSION: Normal x-ray examination of the chest. Electronically Signed: Eder Dawson MD at 12:36 EST , EKG Initial EKG: Comments: Sinus rhythm with a rate of 67. Normal VA and QTc interval. No ischemic changes. Interpreted by emergency Dr. Discharge Plan Triage Chief Complaint: Palpitations ED Provider: Sha Garcia Dx/Rx/DC Orders Clinical Impression: Chest pain, Palpitation, Myalgia Instructions: ED Palpitations Prescriptions: No Action calcitriol 0.5 mcg capsule 1.5 mcg PO QHS Label Comments: TAKE 3 CAPSULES DAILY BY MOUTH AT DINNER levothyroxine 125 mcg tablet 125 mcg PO ANDERSON levothyroxine 125 mcg tablet 187.5 mcg PO MOTUWETHFRSA tizanidine [Zanaflex] 4 mg tablet 4 mg PO TID PRN (Reason: muscle spasticity) Qty: 30 2RF Primary Care Provider: Levi Kent Referrals: Levi Kent MD [Primary Care Provider] - Flavio Nieves MD [Med Staff - Active Staff] - 3-5 Days Disposition Disposition: Home, Self Care
[2022-04-17 11:43] LABS: Absolute Lymphocyte Count 2.74 X10^3/uL (0.83-4.51); Basophil# 0.08 X10^3/uL; Basophil% 1.3 % (0-1); Eosinophils% 1.6 % (0-5); Hematocrit 42.9 % (37-47); Hemoglobin 14.5 g/dL (12.0-15.0); Lymphocyte # 2.74 X10^3/ul (0.83-4.51); Lymphocyte % 43.4 % (19-41); Mean Corp Hgb Conc 33.8 g/dL (32-36); Mean Corpuscular Volume 88.6 fL (81-99); Mean Platelet Vol. 10.9 fl (6.2-12.0); Monocyte# 0.41 X10^3/uL; Monocyte% 6.5 % (0-10); NRBC Flagged by Analyzer 0 % (0-5); Neutrophil # 2.96 X10^3/uL (2.7-7.7); Neutrophil % 46.9 % (47-70); Platelet Count 315 K/mm3 (150-450); RBC Distribution Width CV 12.1 % (11.6-14.6); Red Blood Count 4.84 M/mm3 (4.2-5.4); White Blood Count 6.3 K/mm3 (4.4-11.0)
[2022-04-17 11:58] LABS: ALB/GLOB Ratio 1.1 RATIO (0.9-2.4); AST(SGOT) 15 U/L (15-37); Alanine Aminotransfer ALT/SGPT 30 U/L (13-56); Albumin, Serum 3.9 g/dL (3.2-5.0); Alkaline Phosphatase 44 U/L (45-117); Anion Gap 3 (5-15); BUN 19 mg/dL (7-18); BUN/Creat Ratio 22.9 RATIO (10-20); Calcium,Total 8.4 mg/dL (8.5-10.1); Chloride 107 mmol/L (98-107); Creatinine, Serum 0.83 mg/dL (0.55-1.02); EST Glomerular Filtration Rate 82 mL/min (>60); Est Glom Filt Rate - Afr Amer 99 mL/min (>60); Estimated Creatinine Clearance 99.38 ml/min; Globulin 3.4 g/dL (2.2-4.2); Glucose 78 mg/dL (74-106); Potassium 3.8 mmol/L (3.5-5.1); Protein, Total 7.3 g/dL (6.4-8.2); Sodium Level 139 mmol/L (136-145); Troponin-I HS < 3 pg/mL (3.0-54.0)
[2022-04-17 13:34] VITALS: RESP 18
== END 2022-04-17 13:35 | disposition home or self-care (01) ==
PROVIDERS: Emergency Provider Emergency Medicine; PCP Internal Medicine; Visit Provider Emergency Medicine
DX: R07.9 Chest pain, unspecified (principal); R00.2 Palpitations; M79.10 Myalgia, unspecified site; F17.210 Nicotine dependence, cigarettes, uncomplicated; M51.37 Other intervertebral disc degeneration, lumbosacral region; E03.9 Hypothyroidism, unspecified; Z86.16 Personal history of COVID-19; Z79.899 Other long term (current) drug therapy
CPT/HCPCS: 71045; 80053; 84484; 85025; 87804; 93005; 93225; 93226; 99283; A4216

== ENCOUNTER → 2022-04-17 | Outpatient (CLI) | payer MEDICAID, SELFPAY | END | disposition home or self-care (01) | LOC: PSN 13:03 | PROVIDERS: PCP Internal Medicine; Referring Provider Emergency Medicine; Visit Provider Emergency Medicine | DX: R00.2 Palpitations (principal) | CPT/HCPCS: 93225; 93226 ==

== ENCOUNTER → 2022-04-23 | Outpatient (CLI) | payer MEDICAID, SELFPAY ==
[2022-04-23 11:18] LABS: Hematocrit 41.2 % (37-47); Hemoglobin 13.7 g/dL (12.0-15.0); Mean Corp Hgb Conc 33.3 g/dL (32-36); Mean Corpuscular Hgb 29.9 pg (27.0-32.0); Mean Platelet Vol. 11.8 fl (6.2-12.0); Platelet Count 313 K/mm3 (150-450); RBC Distribution Width CV 12.2 % (11.6-14.6); RBC Distribution Width SD 40.3 fl (35.1-43.9); Red Blood Count 4.58 M/mm3 (4.2-5.4); White Blood Count 8.3 K/mm3 (4.4-11.0)
== END | disposition home or self-care (01) ==
LOC: PAT 05-31 14:05
PROVIDERS: PCP Internal Medicine; Visit Provider Student in an Organized Health Care Education/Training Program
DX: Z01.812 Encounter for preprocedural laboratory examination (principal)
CPT/HCPCS: 36415; 85027; 86850; 86900; 86901

== ENCOUNTER 2022-04-28 12:26 | Emergency (ER) | payer MEDICAID, SELFPAY ==
[2022-04-28 12:27] VITALS: BP 149/93; PULSE 95; RESP 16; TEMP 36.6; O2SAT 99; BMI 23.6
[2022-04-28 13:11] LABS: Bacteria 0 SEEN /hpf (None Seen); Mucous, Urine 0 SEEN /hpf (<or=2+); White Blood Cells 0 SEEN /hpf (0-5)
[2022-04-28 13:18] LABS: Glucose, Dipstick Normal (Normal); Ketone-Dipstick Negative (Negative); Leukocyte Esterase-Dipstick Negative /ul (Negative); Nitrite-Dipstick Negative (Negative); Occult Blood-Urine 25 /ul (Negative); Protein-Dipstick Negative (Negative); Specific Gravity, Urine 1.015 (1.002-1.030); Urine Bilirubin Dipstick Negative (Negative); Urine Urobilinogen Normal (Normal)
[2022-04-28 13:29] LABS: Absolute Neutrophil Count 4.5 X10^3/uL (2.0-7.7); Basophil# 0.09 X10^3/uL; Eosinophil# 0.15 X10^3/uL; Eosinophils% 1.6 % (0-5); Hematocrit 43.9 % (37-47); Mean Corp Hgb Conc 34.2 g/dL (32-36); Mean Corpuscular Hgb 30.1 pg (27.0-32.0); Mean Corpuscular Volume 88.2 fL (81-99); Mean Platelet Vol. 11.5 fl (6.2-12.0); Monocyte# 0.59 X10^3/uL; Monocyte% 6.4 % (0-10); NRBC Flagged by Analyzer 0 % (0-5); Neutrophil # 4.53 X10^3/uL (2.7-7.7); Neutrophil % 48.8 % (47-70); Platelet Count 302 K/mm3 (150-450); RBC Distribution Width CV 12.4 % (11.6-14.6); RBC Distribution Width SD 40.1 fl (35.1-43.9); Red Blood Count 4.98 M/mm3 (4.2-5.4); White Blood Count 9.3 K/mm3 (4.4-11.0)
[2022-04-28 13:41] LABS: Anion Gap 4 (5-15); BUN 12 mg/dL (7-18); BUN/Creat Ratio 12.8 RATIO (10-20); Calcium,Total 8.9 mg/dL (8.5-10.1); Chloride 106 mmol/L (98-107); Creatinine, Serum 0.94 mg/dL (0.55-1.02); EST Glomerular Filtration Rate 71 mL/min (>60); Est Glom Filt Rate - Afr Amer 86 mL/min (>60); Estimated Creatinine Clearance 87.75 ml/min; Glucose 85 mg/dL (74-106); Potassium 3.6 mmol/L (3.5-5.1); Sodium Level 139 mmol/L (136-145)
[2022-04-28 14:10] LABS: Color, Urine Yellow (Yellow); Urine Clarity Clear (Clear)
[2022-04-28 14:13] LABS: Red Blood Cells-Urine 0-5 SEEN /hpf (0-5); Squamous Epithelial Cells - UA 0-5 SEEN /hpf (5-10); Transitional Epithelial - Ur 0-5 SEEN /hpf (0-5)
--- NOTE | 2022-04-28 14:18 | CT_ITS ---
STUDY: CT ABDOMEN AND PELVIS WITH CONTRAST REASON FOR EXAM: Female, 36 years old. Upper abdominal pain radiating to the back. RADIATION DOSAGE (If Supplied By Facility): CTDIvol = ( 15.16 ) mGy, DLP = ( 710.42 ) mGycm TECHNIQUE: Transaxial images were obtained from the dome of the diaphragm to the symphysis pubis without oral contrast. IV 100mL Isovue-300 was administered. Sagittal and coronal images were reconstructed. Individualized dose optimization techniques were used for this CT. COMPARISON: Comparison is made with prior study dated 02/06/2022 and 01/06/2022. FINDINGS: The visualized lung bases are unremarkable. The visualized portions of the heart are within normal limits. Normal liver. The patient is status post cholecystectomy. Normal spleen. Normal pancreas. Normal bilateral adrenal glands. Normal right kidney. Normal left kidney. Normal visualized stomach. Normal small intestine. Normal colon. There are surgical clips in the region of the appendix consistent with a prior appendectomy. Normal abdominal aorta. Normal inferior vena cava. Normal retroperitoneum. Normal urinary bladder. There is a 2.2 cm x 2.7 cm right ovarian cyst. There is also a 2.5 cm x 2.2 cm left ovarian cyst. A small amount of free fluid is seen in the cul-de-sac. Patient is status post hysterectomy. Normal abdominal wall. Disc space narrowing in the degeneration at the L5-S1 level. CT/Abdomen/Pelvis W IV Cont ONLY IMPRESSION: Small bilateral ovarian cysts. Small amount of free fluid is seen in the pelvis. The patient is status post hysterectomy and cholecystectomy. Electronically Signed: Dimitris Stewart MD at 15:18 EST ,
[2022-04-28] MEDS: Hyoscyamine Sulfate 0.125 MG Tablet SL (14:40)
[2022-04-28] MEDS: Morphine 4 MG/ML Syringe IV (14:41)
[2022-04-28] MEDS: Ondansetron 4 MG/2 ML Vial IV (14:41)
[2022-04-28 15:05] LABS: AST(SGOT) 13 U/L (15-37); Alanine Aminotransfer ALT/SGPT 24 U/L (13-56); Albumin, Serum 4.6 g/dL (3.2-5.0); Alkaline Phosphatase 45 U/L (45-117); Bilirubin, Direct 0.11 mg/dL (0.00-0.30); Globulin 3.5 g/dL (2.2-4.2); Lipase 97 U/L (73-393); Protein, Total 8.1 g/dL (6.4-8.2)
--- NOTE | 2022-04-28 15:07 | ED.VIS.GI ---
HPI HPI - GI History of Present Illness Chief Complaint: Abd Pain Informant: patient Narrative Narrative: Presents worsening epigastric pain today. On and off symptoms past 10 days. She rates pain up to her chest. She states seen in the ED about 10-11 days ago cardiac work-up was negative. She had palpitations at that time. She reports a 48-hour Holter monitor follow-up with cardiology states not cardiac in nature. Reports likely GI. History of cholecystectomy appendectomy along with hysterectomy. Currently dealing with a right ovarian cyst. She states pain occasionally radiates down her sides. She has had kidney stones in the past she states it feels similar. However today increasing pressure epigastric that brings her to the emergency department. Reports she is followed by Dr. Friend had upper endoscopy that was negative however on CT scan in January noted hiatal hernia. She states she has history of this. She did call GI office and was placed back on pantoprazole and states is not helping. Nausea without vomiting. Denies any bloody stools. Due to her discomfort she is here. She has tried Bentyl. Prior similar symptoms: Yes PFSH PFSH Medical History Abdominal pain Abnormal urinalysis Abscess of left axilla Annular tear of lumbar disc Anxiety Anxiety Anxiety Arthritis Asthma Back pain Cardiology follow-up encounter Carpal tunnel syndrome Chest pain Chest pain Chronic constipation Chronic pain Degenerative disc disease at L5-S1 level Depression Depression Fatty liver Generalized anxiety disorder with panic attacks H/O breast lump Hiatal hernia Hidradenitis suppurativa History of COVID-19 History of hiatal hernia History of Holter monitoring History of pain when walking Hx of cystic acne Hx of hypoglycemia Hypocalcemia Hypocalcemia syndrome Hypoglycemia Hypoglycemia Hypokalemia Hypothyroidism Injury of head and neck Irregular heart beat Kidney stones Leg cramps Leg cramps Pelvic pain Polycystic ovaries Post-surgical hypoparathyroidism Postoperative hypothyroidism Postsurgical hypoparathyroidism Right flank pain Right lower quadrant pain Right renal stone Seasonal allergies Shortness of breath on exertion Shortness of breath on exertion Smoker Smoker Suprapubic discomfort Syncope Syncope Tinea pedis of both feet TMJ (temporomandibular joint syndrome) Upper respiratory infection Ureteral calculus, right Urinary frequency Urinary tract infection Vertigo Vitamin deficiency Wears dentures Home Medications calcitriol 0.5 mcg capsule 1.5 mcg PO QHS calcium 02/06/22 [History Last Taken 02/05/22] levothyroxine 125 mcg tablet 125 mcg PO ANDERSON thyroid 02/06/22 [History Last Taken 02/06/22] tizanidine 4 mg tablet (Zanaflex) 4 mg PO TID PRN muscle spasticity #30 tabs 04/13/22 [Rx Last Taken Unknown] levothyroxine 125 mcg tablet 187.5 mcg PO MOTUWETHFRSA 04/17/22 [History Last Taken Unknown] amoxicillin 875 mg-potassium clavulanate 125 mg tablet 1 tab PO BID #14 tabs 04/22/22 [Rx Last Taken Unknown] dicyclomine 10 mg capsule 10 mg PO PRN PRN Cramps 04/22/22 [History Last Taken Unknown] fluticasone propionate 50 mcg/actuation nasal spray,suspension (Flonase Allergy Relief) 2 spray intranasal DAILY #15.8 grams 04/22/22 [Rx Last Taken Unknown] levocetirizine 5 mg tablet (Xyzal) 5 mg PO QPM PRN allergy symptoms #90 tabs 04/22/22 [Rx Last Taken Unknown] pantoprazole 40 mg tablet,delayed release (Protonix) 40 mg PO BID #14 tabs 04/27/22 [Rx Last Taken Unknown] hyoscyamine sulfate 0.125 mg sublingual tablet (Levsin/SL) 0.125 mg PO TID PRN abdominal discomfort #10 tabs 04/28/22 [Rx Last Taken Unknown] Allergy/AdvReac Type Severity Reaction Status Date / Time codeine Allergy can't Verified 04/28/22 12:29 sleep; itching fluoxetine [From Prozac] Allergy causes Verified 04/28/22 12:29 manic state naproxen Allergy nose bleed Verified 04/28/22 12:29 Family History Father Alcoholism Mother Anemia Depression Hypertension Hyperlipemia Diabetes Grandfather Diabetes Myocardial infarction Grandmother Breast cancer Diabetes Surgical History H/O thyroidectomy History of appendectomy History of cholecystectomy History of esophagogastroduodenoscopy (EGD) History of incision and drainage History of partial hysterectomy History of thyroidectomy History of total hysterectomy S/P hysterectomy Social History household members: none Smoking Status: Current every day smoker tobacco type: cigarettes Tobacco: How many years used: 20 alcohol intake: never substance use type: does not use what type of physical activity do you participate in: none ROS ROS ED Constitutional Constitutional ED: Denies chills, fever(s) or sweats Eyes Eyes: Denies change in vision ENT ENT ED: Denies dysphagia or sore throat Cardiovascular Cardiovascular: Denies chest pain, leg edema, palpitations or racing heartbeat Respiratory/Chest Respiratory/Chest: Denies cough, dyspnea or dyspnea on exertion Gastrointestinal Gastrointestinal: Reports abdominal pain and nausea; Denies diarrhea or vomiting Genitourinary Genitourinary ED: Denies dysuria, hematuria or urinary frequency Musculoskeletal Musculoskeletal: Denies back pain, extremity pain or neck pain Integumentary Denies rash or wounds Neurologic Neurologic: Denies headache(s), paresthesias or weakness EXAM Physical Exam Const Vital Signs: 04/28/22 12:27 04/28/22 16:21 04/28/22 16:37 Temperature 98 F Temperature Source Temporal Pulse Rate 95 Respiratory Rate 16 16 Blood Pressure 149/93 H 111/81 H Blood Pressure Mean 111 Pulse Ox 99 Oxygen Delivery Method Room Air Room Air Positive well nourished and well developed Constitutional Narrative: Nontoxic, uncomfortable. General Appearance ED: well developed HEENT Reports moist mucous membranes normocephalic and atraumatic Eyes PERRL, EOMs intact bilaterally and conjunctivae normal General Eye ED: Yes normal appearance of both eyes Neck no lymphadenopathy and supple General: Negative for tenderness Chest Wall Chest: Negative for tenderness Resp normal respiratory effort and normal air movement Effort and Inspection: symmetric chest movement; Negative for respiratory distress Cardio regular rate, regular rhythm and no murmurs Peripheral Pulses: pulses 2+ throughout GI normal to inspection, nondistended, normoactive bowel sounds GI Narrative: Epigastric tenderness, no guarding or rebound. Negative Gallardo's or McBurney's tenderness. Palpation: Negative for guarding or rebound tenderness present Back/Spine no CVA tenderness and no thoracic nor lumbar tenderness Extremity normal to inspection General Extremety ED: Negative for edema or tenderness General Extremity: Negative for edema Neuro oriented x3 and no sensory deficits noted Sensorium / Orientation: awake and alert Skin no rashes or lesions noted and no wounds MDM MDM MDM Narrative Medical decision making narrative: Patient with epigastric tenderness with nausea. History cholecystectomy appendectomy hysterectomy. Differential is gastritis versus colitis versus pancreatitis. Treated for symptoms morphine Zofran and Levsin. Abdominal labs obtained reviewed by myself on normal lipase liver enzymes white count normal. Creatinine 0.9. Urine noted occult blood. CT abdomen pelvis with IV pain interpreted by allergy to show no acute intra-abdominal process notes ovarian cysts. This is known to the patient. She is followed by gynecology. She is feeling better on reevaluation. Levsin prescription to use as needed she will hold Bentyl on this. She has Zofran at home. She will follow-up with Dr. Rene. All questions were answered. Lab Data Attestation: I reviewed the patient's lab results. Labs: Laboratory Results - last 24 hr 04/28/22 04/28/22 04/28/22 13:05 13:13 13:13 WBC 9.3 RBC 4.98 Hgb 15.0 Hct 43.9 MCV 88.2 MCH 30.1 MCHC 34.2 RDW Std Deviation 40.1 RDW Coeff of Jenn 12.4 Plt Count 302 MPV 11.5 Immature Gran % (Auto) 0.200 Neut % (Auto) 48.8 Lymph % (Auto) 42.0 H [place] % (Auto) 6.4 Eos % (Auto) 1.6 Baso % (Auto) 1.0 Absolute Neuts (auto) 4.5 Absolute Lymphs (auto) 3.90 Nucleated RBC % 0 Sodium 139 Potassium 3.6 Chloride 106 Carbon Dioxide 29.0 Anion Gap 4 L BUN 12 Creatinine 0.94 Estim Creat Clear Calc 87.75 Est GFR (MDRD) Af Amer 86 Est GFR (MDRD) Non-Af 71 BUN/Creatinine Ratio 12.8 Glucose 85 Calcium 8.9 Total Bilirubin Direct Bilirubin AST ALT Alkaline Phosphatase Total Protein Albumin Globulin Lipase Urine Color Yellow Urine Clarity Clear Urine pH 7.0 Ur Specific [place] 1.015 Urine Protein Negative Urine Glucose (UA) Normal Urine Ketones Negative Urine Occult Blood 25 H Urine Nitrite Negative Urine Bilirubin Negative Urine Urobilinogen Normal Ur Leukocyte Esterase Negative Urine RBC 0-5 SEEN Urine WBC 0 SEEN Ur Squamous Epith Cells 0-5 SEEN Ur Transition Epith Cell 0-5 SEEN Urine Bacteria 0 SEEN Urine Mucus 0 SEEN 04/28/22 13:13 WBC RBC Hgb Hct MCV MCH MCHC RDW Std Deviation RDW Coeff of Jenn Plt Count MPV Immature Gran % (Auto) Neut % (Auto) Lymph % (Auto) [place] % (Auto) Eos % (Auto) Baso % (Auto) Absolute Neuts (auto) Absolute Lymphs (auto) Nucleated RBC % Sodium Potassium Chloride Carbon Dioxide Anion Gap BUN Creatinine Estim Creat Clear Calc Est GFR (MDRD) Af Amer Est GFR (MDRD) Non-Af BUN/Creatinine Ratio Glucose Calcium Total Bilirubin 0.40 Direct Bilirubin 0.11 AST 13 L ALT 24 Alkaline Phosphatase 45 Total Protein 8.1 Albumin 4.6 Globulin 3.5 Lipase 97 Urine Color Urine Clarity Urine pH Ur Specific [place] Urine Protein Urine Glucose (UA) Urine Ketones Urine Occult Blood Urine Nitrite Urine Bilirubin Urine Urobilinogen Ur Leukocyte Esterase Urine RBC Urine WBC Ur Squamous Epith Cells Ur Transition Epith Cell Urine Bacteria Urine Mucus Radiography Diagnostic Testing: Clinical Impression(s) from Imaging Studies Abdomen/Pelvis CT 04/28/22 14:18 IMPRESSION: Small bilateral ovarian cysts. Small amount of free fluid is seen in the pelvis. The patient is status post hysterectomy and cholecystectomy. Electronically Signed: Dimitris Stewart MD at 15:18 EST , Discharge Plan Triage Chief Complaint: Abd Pain ED Provider: Regulo Weaver Dx/Rx/DC Orders Clinical Impression: Abdominal pain, Ovarian cyst Instructions: Abdominal Pain, Ovarian Cysts Prescriptions: New hyoscyamine sulfate [Levsin/SL] 0.125 mg tablet, sublingual 0.125 mg PO TID PRN (Reason: abdominal discomfort) Qty: 10 0RF No Action fluticasone propionate [Flonase Allergy Relief] 50 mcg/actuation spray,suspension 2 spray intranasal DAILY Qty: 15.8 1RF Rx Instructions: administer into each nostril amoxicillin-pot clavulanate 875-125 mg tablet 1 tab PO BID Qty: 14 0RF levocetirizine [Xyzal] 5 mg tablet 5 mg PO QPM PRN (Reason: allergy symptoms) Qty: 90 1RF calcitriol 0.5 mcg capsule 1.5 mcg PO QHS Label Comments: TAKE 3 CAPSULES DAILY BY MOUTH AT DINNER levothyroxine 125 mcg tablet 125 mcg PO ANDERSON dicyclomine [Bentyl] 10 mg Capsule 10 mg PO PRN PRN (Reason: Cramps) levothyroxine 125 mcg tablet 187.5 mcg PO MOTUWETHFRSA tizanidine [Zanaflex] 4 mg tablet 4 mg PO TID PRN (Reason: muscle spasticity) Qty: 30 2RF pantoprazole [Protonix] 40 mg tablet,delayed release (DR/EC) 40 mg PO BID Qty: 14 0RF Primary Care Provider: Levi Kent Referrals: Levi Kent MD [Primary Care Provider] - Jules Rene DO [Med Staff - Active Staff] - Keep Jennifer appointment Activity Restrictions/Additional Instructions: Labs are stable CT scan noting ovarian cyst. Follow-up with Dr. Rene. Disposition Disposition: Home, Self Care Discharge Date/Time: 04/28/22 16:40
[2022-04-28 16:21] VITALS: RESP 16
[2022-04-28 16:37] VITALS: BP 111/81
== END 2022-04-28 16:40 | disposition home or self-care (01) ==
PROVIDERS: Emergency Provider Emergency Medicine; PCP Internal Medicine; Visit Provider Emergency Medicine
DX: R10.13 Epigastric pain (principal); N83.201 Unspecified ovarian cyst, right side; M51.37 Other intervertebral disc degeneration, lumbosacral region; F17.210 Nicotine dependence, cigarettes, uncomplicated; Z86.16 Personal history of COVID-19
CPT/HCPCS: 74177; 80048; 80076; 81001; 83690; 85025; 96361; 96374; 96375; 99283; J7030; Q9967; A4216; J2405

== ENCOUNTER → 2022-05-04 | Outpatient (CLI) | payer MEDICAID, SELFPAY ==
--- NOTE | 2022-05-04 08:30 | RAD_ITS ---
PROCEDURE: Upper GI with Small Bowel Follow Through DATE OF EXAMINATION: 05/04/2022.. INDICATION: Female, 36 years old. 50 pound weight loss. Epigastric pain. FLUOROSCOPY TIME (if supplied): (3:00) minutes/seconds. 26 images were obtained. TECHNIQUE: Radiographic and fluoroscopic images of the distal esophagus, stomach, and entire small intestine were obtained following the oral ingestion of barium. COMPARISON: None. FINDINGS: The hedge fund accountant film of the abdomen demonstrates a normal bowel gas pattern. There are no abnormal calcifications or organomegaly demonstrated. The visualized osseous structures are normal. Imaging of the esophagus was obtained. There is no evidence of obstruction. No mass lesion is seen. No evidence of gastroesophageal reflux. The stomach and duodenum are unremarkable. No evidence of ulceration. A single contrast small bowel follow through exam demonstrates the small bowel to have no evidence for stricture, ulceration or mass. The transit time is normal at 30 minutes. RAD/Upper GI/w Small Bowel IMPRESSION: 1. Unremarkable air contrast upper G I series and small bowel follow-through examination. Electronically Signed: Dimitris Stewart MD at 15:30 EST ,
== END | disposition home or self-care (01) ==
LOC: RAD 08:30
PROVIDERS: PCP Internal Medicine; Visit Provider Nurse Practitioner Adult Health
DX: R10.13 Epigastric pain (principal); R07.9 Chest pain, unspecified
CPT/HCPCS: 74246; 74248

== ENCOUNTER → 2022-05-19 | Outpatient (CLI) | payer MEDICAID, SELFPAY ==
--- NOTE | 2022-05-19 09:47 | NM_ITS ---
CLINICAL: 36-year-old female with history of epigastric pain, status post cholecystectomy. RADIONUCLIDE HEPATOBILIARY SCINTIGRAPHY COMPARISON: None available FINDINGS: Following the intravenous administration of 5.3 mCi of 99m Tc Mebrofenin, hepatobiliary images reveal: 1. Relatively homogeneous radiopharmaceutical concentration is noted by a normal sized liver. No parenchymal defects are identified. 2. Gallbladder activity is not identified during 60 minutes of sequential imaging commensurate with known history of prior cholecystectomy. 3. Small intestinal tract is observed at 17 minutes post radiopharmaceutical administration. 4. Washout of the radiopharmaceutical by the hepatic parenchyma appears qualitatively normal. NM/Hepatobilliary Imaging IMPRESSION: 1. Nonvisualization of the gallbladder is consistent with prior cholecystectomy. 2. Further evaluation of this individual may be undertaken utilizing pre-examination CCK quantitative hepatobiliary scintigraphy to exclude the presence of post cholecystectomy syndrome-Sphincter of Oddi dysfunction. (Lenora et al, J Nucl Med 33: 1216, 1992). Electronically Signed: Charli Castro, at 22:19 EST ,
== END | disposition home or self-care (01) ==
LOC: NM 09:45
PROVIDERS: PCP Internal Medicine; Referring Provider Nurse Practitioner Adult Health; Visit Provider Nurse Practitioner Adult Health
DX: R10.13 Epigastric pain (principal)
CPT/HCPCS: 78226; A9537

== ENCOUNTER → 2022-05-25 | Outpatient (CLI) | payer MEDICAID, SELFPAY ==
--- NOTE | 2022-05-25 06:31 | MRI_ITS ---
INDICATION: epigastric pain,pancreatic tumor markers,duod mass EXAMINATION: MRI - MR MRCP W/O Contrast TECHNIQUE: Multiplanar and multisequence MR images of the abdomen were obtained with MRCP sequence. Three-dimensional post-processing reconstructions were performed. IV Contrast Dosage and Agent: None. COMPARISON: None. FINDINGS: LIVER: No mass. Normal morphology. GALLBLADDER AND BILIARY TREE: Status post cholecystectomy. The CBD is not dilated . No intra- or extrahepatic biliary dilation. No choledochal filling defect. PANCREAS: No mass. No pancreatic duct dilation. SPLEEN: Non-enlarged. ADRENAL GLANDS: No nodules. KIDNEYS: Normal renal size and position. No hydronephrosis. No mass. LYMPH NODES: No enlarged periportal or retroperitoneal lymph nodes. PERITONEUM: No ascites or fluid collection. VESSELS: Aorta is non-dilated. LOWER CHEST: No pleural effusion. MRI/MRCP Abdomen without Contrast IMPRESSION: Unremarkable MRCP. No biliary dilation or choledocolithiasis. Electronically Signed: Brian Cordero DO at 23:40 EST ,
== END | disposition home or self-care (01) ==
PROVIDERS: PCP Internal Medicine; Referring Provider Nurse Practitioner Adult Health; Visit Provider Nurse Practitioner Adult Health
DX: R10.13 Epigastric pain (principal); R97.8 Other abnormal tumor markers; K31.89 Other diseases of stomach and duodenum
CPT/HCPCS: 74181

== ENCOUNTER 2022-06-24 17:22 | Emergency (ER) | payer MEDICAID, SELFPAY ==
[2022-06-24 17:23] VITALS: BP 137/69; PULSE 72; RESP 18; TEMP 36.6; O2SAT 100; BMI 23.2
--- NOTE | 2022-06-24 17:39 | CT_ITS ---
EXAM: CT ABDOMEN AND PELVIS WITHOUT INTRAVENOUS CONTRAST CLINICAL INDICATION: Pain TECHNIQUE: Helically acquired images were obtained of the abdomen and pelvis without intravenous contrast. This CT exam was performed using one or more of the following dose reduction techniques: automated exposure control, adjustment of the mA and/or kV according to patient size, and/or use of iterative reconstruction technique. This report was created using [employer] report generation technology. COMPARISON: 04/28/2022 FINDINGS: LOWER THORAX: Unremarkable. Lung bases are clear. No cardiomegaly. No significant pericardial effusion. ABDOMEN: LIVER: Unremarkable. Homogeneous. GALLBLADDER AND BILE DUCTS: Gallbladder is not well-visualized and may be surgically absent. No intra- or extrahepatic biliary ductal dilation. PANCREAS: Unremarkable. No focal cystic mass. SPLEEN: Unremarkable. Normal size without focal cystic or solid mass. ADRENALS: Unremarkable. No nodules. KIDNEYS AND URETERS: Unremarkable. Normal renal size and position. No hydronephrosis. STOMACH AND BOWEL: Unremarkable. No stomach or bowel distention. No focal inflammatory change. PELVIS: APPENDIX: No evidence of acute appendicitis. BLADDER: Unremarkable. REPRODUCTIVE: Patient is status post hysterectomy. ABDOMEN and PELVIS: INTRAPERITONEAL SPACE: Unremarkable. No ascites or other fluid collection. No free air. BONES/JOINTS: Unremarkable. No suspicious lytic or blastic abnormality. SOFT TISSUES: Unremarkable. No discrete abdominal or pelvic wall hernia. VASCULATURE: Unremarkable. Abdominal aorta is non-dilated. LYMPH NODES: Unremarkable. No enlarged lymph nodes. CT/Abdomen/Pelvis without Cont IMPRESSION: No acute findings in the abdomen or pelvis. Electronically Signed: Yayo Myers MD at 18:40 EDT ,
--- NOTE | 2022-06-24 17:40 | EDS_ITS ---
HPI HPI - GI History of Present Illness Chief Complaint: Flank Pain Detail of Chief Complaint: Right flank pain. History of kidney stones. Informant: patient Abdominal Pain/Flank Pain Onset: Today Context: Gradual Onset Timing: Continuous Quality: Aching Location: Right Flank Current Severity: Mild Maximum Severity: Moderate Worsened by: Nothing Relieved by: Nothing Nausea/Vomiting/Emesis GI Symptom: Positive for Nausea Onset: Today Severity: Mild Diarrhea/Melena/Hematochezia GI Symptom: Positive for Diarrhea Onset: Days Stool Quality: Positive for Loose Severity: Mild Associated Symptoms Associated Symptoms: Positive for Hematuria; Negative for Dysuria or Frequency LMP: Prior hysterectomy. Narrative Narrative: 36-year-old female said 2 prior kidney stones both last year. One was removed and had a stent the other one was done by lithotripsy. She is also had a prior cholecystectomy, appendectomy and hysterectomy. States she has had urinary urgency last several days and today developed right flank pain. Associated nausea no vomiting and loose stools. No dysuria but no hematuria. No fever. Similar to her prior kidney stones. Prior similar symptoms: Yes Recent Illness/Hospitalization: No PFSH PFSH Medical History Abdominal pain Abnormal urinalysis Abscess of left axilla Annular tear of lumbar disc Anxiety Anxiety Anxiety Arthritis Asthma Back pain Cardiology follow-up encounter Carpal tunnel syndrome Chest pain Chest pain Chronic constipation Chronic pain Degenerative disc disease at L5-S1 level Depression Depression Fatty liver Generalized anxiety disorder with panic attacks H/O breast lump Hiatal hernia Hidradenitis suppurativa History of COVID-19 History of hiatal hernia History of Holter monitoring History of pain when walking Hx of cystic acne Hx of hypoglycemia Hypocalcemia Hypocalcemia syndrome Hypoglycemia Hypoglycemia Hypokalemia Hypothyroidism Injury of head and neck Irregular heart beat Kidney stones Leg cramps Leg cramps Pelvic pain Polycystic ovaries Post-surgical hypoparathyroidism Postoperative hypothyroidism Postsurgical hypoparathyroidism Right flank pain Right lower quadrant pain Right renal stone Seasonal allergies Shortness of breath on exertion Shortness of breath on exertion Smoker Smoker Suprapubic discomfort Syncope Syncope Tinea pedis of both feet TMJ (temporomandibular joint syndrome) Upper respiratory infection Ureteral calculus, right Urinary frequency Urinary tract infection Vertigo Vitamin deficiency Wears dentures Home Medications levothyroxine 125 mcg tablet 125 mcg PO ANDERSON thyroid 02/06/22 [History Last Taken 02/06/22] levothyroxine 125 mcg tablet 187.5 mcg PO MOTUWETHFRSA 04/17/22 [History Last Taken Unknown] levocetirizine 5 mg tablet (Xyzal) 5 mg PO QPM PRN allergy symptoms #90 tabs 04/22/22 [Rx Last Taken Unknown] calcitriol 0.5 mcg capsule 1.5 mcg PO QHS calcium #90 caps 05/05/22 [Rx Last Taken Unknown] hydroxyzine HCl 25 mg tablet 25 mg PO TID PRN anxiety #30 tabs 05/13/22 [Rx Last Taken Unknown] lorazepam 0.5 mg tablet 0.5 mg PO DAILY PRN anxiety #10 tabs 05/14/22 [Rx Last Taken Unknown] dicyclomine 20 mg tablet 20 mg PO PRN PRN CRAMPING ABD 05/27/22 [History Last Taken Unknown] tizanidine 4 mg tablet (Zanaflex) 4 mg PO TID PRN muscle spasticity #30 tabs 06/15/22 [Rx Last Taken Unknown] Allergy/AdvReac Type Severity Reaction Status Date / Time codeine Allergy can't Verified 06/24/22 17:26 sleep; itching fluoxetine [From Prozac] Allergy causes Verified 06/24/22 17:26 manic state naproxen Allergy nose bleed Verified 06/24/22 17:26 Family History Father Alcoholism Mother Anemia Depression Hypertension Hyperlipemia Diabetes Grandfather Diabetes Myocardial infarction Grandmother Breast cancer Diabetes Surgical History H/O thyroidectomy History of appendectomy History of cholecystectomy History of esophagogastroduodenoscopy (EGD) History of incision and drainage History of partial hysterectomy History of thyroidectomy History of total hysterectomy S/P hysterectomy Social History household members: none Smoking Status: Current every day smoker tobacco type: cigarettes Tobacco: How many years used: 20 alcohol intake: never substance use type: does not use what type of physical activity do you participate in: none ROS ROS ED ROS Narrative Right flank pain. Nausea. Loose stools. Review of Systems ROS Unobtainable: Denies due to encephalopathy Constitutional Constitutional ED: Denies chills or fever(s) ENT ENT ED: Denies ear pain Cardiovascular Cardiovascular: Denies chest pain Respiratory/Chest Respiratory/Chest: Denies cough or dyspnea Gastrointestinal Gastrointestinal: Reports abdominal pain, diarrhea and nausea; Denies constipation, melena or vomiting Genitourinary Genitourinary ED: Reports hematuria; Denies dysuria Musculoskeletal Musculoskeletal: Denies arthralgias Integumentary Denies abscess Neurologic Neurologic: Denies headache(s) Psychiatric Psychiatric: Denies anxiety Endocrine Endocrinology: Denies polydipsia Hematologic/Lymphatic Hematologic/Lymphatic: Denies easy bleeding Allergic/Immunologic Allergic/Immunologic ED: Denies mouth swelling or tongue swelling EXAM Physical Exam Narrative Exam Narrative: 36-year-old female vital signs stable afebrile. H EENT exam unremarkable. Neck nontender no lymphadenopathy. Lungs clear to auscultation bilaterally. Heart regular rhythm no murmur. Abdomen soft nontender. Normal bowel sounds no peritoneal signs. Back nontender. Moving all 4 extremities. Neurologically awake alert with no focal motor deficits Const Vital Signs: 06/24/22 17:23 Temperature 98 F Temperature Source Temporal Pulse Rate 72 Respiratory Rate 18 Blood Pressure 137/69 H Blood Pressure Mean 91 Pulse Ox 100 Oxygen Delivery Method Room Air Positive well nourished and well developed; Negative for obese, cachectic, contractures or unkempt General Appearance ED: well developed and NAD; Negative for unkempt, cachectic, contractures or pallor Nutritional Appearance: Negative for cachectic or obese HEENT Reports moist mucous membranes normocephalic and atraumatic; Negative for trauma or tenderness Eyes PERRL and EOMs intact bilaterally General Eye ED: Negative for pale conjunctiva or scleral icterus Neck no lymphadenopathy, supple and no JVD General: Negative for tenderness Carotids: Negative for other Resp normal respiratory effort and clear to auscultation bilaterally Effort and Inspection: Negative for respiratory distress Auscultation: Negative for rales, rhonchi or wheezes Cardio regular rate, regular rhythm, S1 normal heart sound, S2 normal heart sound and no murmurs Rate: Negative for bradycardia or tachycardic GI non-tender, non-distended and no masses Inspection: Negative for abdominal distention Auscultation: normoactive bowel sounds Palpation: soft; Negative for tender or guarding Back/Spine no CVA tenderness General Back: Negative for CVA tenderness Cervical Spine: Negative for cervical spine tenderness Thoracic Spine / Upper Back: Negative for thoracic spinal tenderness Lumbar Spine / Lower Back: Negative for lumbar spinal tenderness Coccyx: Negative for other Extremity full ROM General Extremety ED: Negative for edema or tenderness General Extremity: Negative for edema Neuro CN's II-XII intact bilaterally and moves all extremities Sensorium / Orientation: alert, oriented to person, oriented to place and oriented to time; Negative for orientation impaired, confused, lethargic or stuporous Motor Exam: strength 5/5 throughout Psych mental status grossly normal and thought process normal Appearance: Negative for unkempt Attitude: No agitated Mood & Affect: Negative for depressed, anxious or tearful Skin no wounds General Skin Exam: Negative for jaundice or pallor Lesions: no lesions Rashes: no rashes Trauma: Negative for abrasion or other MDM MDM MDM Narrative Medical decision making narrative: 36-year-old female right flank pain with a history of 2 prior kidney stones. CAT scan and urinalysis being obtained. She has had a hysterectomy we will do a test. She will be given Toradol for pain and Zofran for nausea and reassess. Repeat exam patient was still in pain after the Toradol she was given IV morphine. CAT scan shows no kidney stone. UA is negative. Patient be discharged home. Tylenol and Motrin for pain. Follow-up if not improving. Return if worse. Lab Data Attestation: I reviewed the patient's lab results. Lab results narrative: Urinalysis shows blood on the macroscopic but no white or red cells on the microscopic. 1+ bacteria. No nitrites. Labs: Laboratory Results - last 24 hr 06/24/22 18:15 Urine Color Yellow Urine Clarity Clear Urine pH 6.0 Ur Specific [place] 1.030 Urine Protein 30 H Urine Glucose (UA) Normal Urine Ketones 5 H Urine Occult Blood 25 H Urine Nitrite Negative Urine Bilirubin Negative Urine Urobilinogen 1 H Ur Leukocyte Esterase 25 H Urine RBC 0 SEEN Urine WBC 0-5 SEEN Ur Squamous Epith Cells 0-5 SEEN Calcium Oxalate Crystal 1+ Urine Bacteria 1+ Urine Mucus 0 SEEN Radiography Diagnostic Testing: Clinical Impression(s) from Imaging Studies Abdomen/Pelvis CT 06/24/22 17:39 IMPRESSION: No acute findings in the abdomen or pelvis. Electronically Signed: Yayo Myers MD at 18:40 EDT , CAT scan read by the radiologist and reviewed by me showed no acute kidney stone or acute findings causing her pain. Discharge Plan Triage Chief Complaint: Flank Pain ED Provider: Michael Ruvalcaba Dx/Rx/DC Orders Clinical Impression: Right flank pain, History of kidney stones Instructions: ED Flank Pain, Uncertain Cause Prescriptions: No Action levocetirizine [Xyzal] 5 mg tablet 5 mg PO QPM PRN (Reason: allergy symptoms) Qty: 90 1RF levothyroxine 125 mcg tablet 125 mcg PO ANDERSON dicyclomine [Bentyl] 20 mg Tablet 20 mg PO PRN PRN (Reason: CRAMPING ABD) levothyroxine 125 mcg tablet 187.5 mcg PO MOTUWETHFRSA calcitriol 0.5 mcg capsule 1.5 mcg PO QHS Qty: 90 2RF hydroxyzine HCl 25 mg tablet 25 mg PO TID PRN (Reason: anxiety) Qty: 30 1RF lorazepam 0.5 mg tablet 0.5 mg PO DAILY PRN (Reason: anxiety) Qty: 10 0RF tizanidine [Zanaflex] 4 mg tablet 4 mg PO TID PRN (Reason: muscle spasticity) Qty: 30 2RF Primary Care Provider: Levi Kent Referrals: Levi Kent MD [Primary Care Provider] - 3-5 Days if not improving Activity Restrictions/Additional Instructions: CAT scan showed no sign of a kidney stone. Urinalysis is no signs of urinary tract infection Motrin and Tylenol for pain. Follow-up with your doctor if not improving. Disposition Disposition: Home, Self Care
[2022-06-24] MEDS: Ondansetron 4 MG/2 ML Vial IV (17:53)
[2022-06-24] MEDS: Ketorolac 30 MG/ML Syringe IV (17:53)
[2022-06-24] MEDS: morphine 8 MG/ML Syringe IV (18:18)
[2022-06-24 18:28] LABS: Mucous, Urine 0 SEEN /hpf (<or=2+); Red Blood Cells-Urine 0 SEEN /hpf (0-5)
[2022-06-24 19:07] LABS: Color, Urine Yellow (Yellow); Glucose, Dipstick Normal (Normal); Ketone-Dipstick 5 mg/dl (Negative); Leukocyte Esterase-Dipstick 25 /ul (Negative); Nitrite-Dipstick Negative (Negative); Occult Blood-Urine 25 /ul (Negative); Protein-Dipstick 30 mg/dl (Negative); Urine Bilirubin Dipstick Negative (Negative); Urine Clarity Clear (Clear); Urine Urobilinogen 1 mg/dl (Normal)
[2022-06-24 19:14] LABS: Bacteria 1+ /hpf (None Seen); Calcium Oxalate Crystals Ur 1+ /hpf (<or=2+); Squamous Epithelial Cells - UA 0-5 SEEN /hpf (5-10); White Blood Cells 0-5 SEEN /hpf (0-5)
[2022-06-24 19:34] VITALS: BP 108/58
== END 2022-06-24 19:42 | disposition home or self-care (01) ==
PROVIDERS: Emergency Provider Emergency Medicine; PCP Internal Medicine; Visit Provider Emergency Medicine
DX: R10.9 Unspecified abdominal pain (principal); F17.210 Nicotine dependence, cigarettes, uncomplicated; K76.0 Fatty (change of) liver, not elsewhere classified; Z86.16 Personal history of COVID-19
CPT/HCPCS: 74176; 81001; 96374; 96375; 99282; A4216; J2405

== ENCOUNTER → 2022-06-25 | Outpatient (CLI) | payer MEDICAID, SELFPAY ==
[2022-06-25 11:21] LABS: ALB/GLOB Ratio 1.3 RATIO (0.9-2.4); AST(SGOT) 16 U/L (15-37); Alanine Aminotransfer ALT/SGPT 29 U/L (13-56); Albumin, Serum 4.2 g/dL (3.2-5.0); Alkaline Phosphatase 44 U/L (45-117); Anion Gap 6 (5-15); BUN 21 mg/dL (7-18); BUN/Creat Ratio 19.4 RATIO (10-20); Calcium,Total 9.3 mg/dL (8.5-10.1); Chloride 105 mmol/L (98-107); Creatinine, Serum 1.08 mg/dL (0.55-1.02); EST Glomerular Filtration Rate 60 mL/min (>60); Est Glom Filt Rate - Afr Amer 73 mL/min (>60); Globulin 3.2 g/dL (2.2-4.2); Glucose 106 mg/dL (74-106); Protein, Total 7.4 g/dL (6.4-8.2); Sodium Level 141 mmol/L (136-145)
[2022-06-25 11:23] LABS: Vitamin B12 339 pg/mL (211-911)
[2022-06-28 16:25] LABS: Vitamin D 1,25-Dihydroxy 54.7 pg/mL (24.8-81.5)
== END | disposition home or self-care (01) ==
LOC: LAB 10:10
PROVIDERS: PCP Internal Medicine; Referring Provider Internal Medicine Endocrinology, Diabetes & Metabolism; Visit Provider Internal Medicine Endocrinology, Diabetes & Metabolism
DX: E03.9 Hypothyroidism, unspecified (principal); E89.2 Postprocedural hypoparathyroidism; R10.9 Unspecified abdominal pain
CPT/HCPCS: 36415; 80053; 82607; 82652; 87086; 87088

== ENCOUNTER → 2022-07-02 | Outpatient (CLI) | payer MEDICAID, SELFPAY ==
--- NOTE | 2022-07-02 09:28 | STE_ITS ---
Reason For Study: Chest Pain; Palpitations Stress Results Protocol: Wero Protocol Maximum Predicted HR: 182 bpm Target HR: 155 bpm % Maximum Predicted HR: 81 % DurationHeart Rate Stage (mm:ss) (bpm) BP Comment Baseline 67 118/72No Chest Pain; Moderate Back Pain Wero Protocol Stage I 3:00 117 126/70No Chest Pain; Moderate Back Pain Wero Protocol Stage II 3:00 117 142/72No Chest Pain; Moderate Back Pain Wero Protocol Stage III 3:00 148 150/64No Chest Pain; Severe Back Pain Recovery 88 110/68No Chest Pain; Moderate Back Pain Stress Duration: 9:00 mm:ss Maximum Stress HR: 148 bpm METS: 10 Baseline Echocardiogram Findings Stress Echo Wall motion Data Resting WM Intermediate WM Stress WM ECHO/Stress Test Echo w/o Contrast Interpretation Summary Exercise stress echo. 36-year-old lady with a history of chest pain. Stress EKG. Resting EKG demonstrates sinus rhythm with a rate of 62 bpm normal intervals ar e noted resting blood pressure is 118/72 mmHg. The patient exercised for total duration of 9 minutes completing stage III of the Wero protocol. The maximum heart rate attained was 148 bpm which was 81 % of maximum predicted heart rate the maximum workload was 10.[address] metabolic equivalents. At re st there were no ST or T wave changes noted to suggestIschemia and at peak exercise upsloping ST ch anges were noted which did not meet the criteria for ischemia. No clinical angina was noted. The peak blood pressure was 150/64 mmHg which was a good blood pressure response to exercise. Stress echocardiogram. Resting echocardiogram demonstrated preserved left ventricular systolic functio n estimated at approximately 53%. An apical false tendon is noted. At peak exercise there was thickening of all cheema and reduction of low ventricular cavity size to approximately 65% suggest ing adequate contractility with exercise. No wall motion abnormalities were noted. Conclusion: Normal exercise stress echo with no EKG or echocardiographic criteria for ische grupo. Good functional aerobic capacity. Ordering Physician: Elysia Dyson Referring Physician: Bird Chen Performed By: Nadia Hodge RCS
== END | disposition home or self-care (01) ==
LOC: CVS 09:27
PROVIDERS: PCP Internal Medicine; Visit Provider Physician Assistant Medical
DX: R00.2 Palpitations (principal); R07.9 Chest pain, unspecified
CPT/HCPCS: 93017; 93350

== ENCOUNTER → 2022-08-02 | Outpatient (CLI) | payer MEDICAID, SELFPAY ==
[2022-08-02 18:55] LABS: ALB/GLOB Ratio 1.3 RATIO (0.9-2.4); AST(SGOT) 18 U/L (15-37); Alanine Aminotransfer ALT/SGPT 35 U/L (13-56); Alkaline Phosphatase 41 U/L (45-117); Amylase 78 U/L (25-115); Anion Gap 6 (5-15); BUN 18 mg/dL (7-18); BUN/Creat Ratio 18.9 RATIO (10-20); Calcium,Total 8.5 mg/dL (8.5-10.1); Chloride 104 mmol/L (98-107); Creatinine, Serum 0.95 mg/dL (0.55-1.02); EST Glomerular Filtration Rate 69 mL/min (>60); Est Glom Filt Rate - Afr Amer 84 mL/min (>60); Globulin 3.1 g/dL (2.2-4.2); Glucose 79 mg/dL (74-106); Lipase 107 U/L (13-75); Potassium 3.6 mmol/L (3.5-5.1); Protein, Total 7.1 g/dL (6.4-8.2); Rheumatoid Factor < 10.0 IU/mL (<15); Sodium Level 136 mmol/L (136-145)
== END | disposition home or self-care (01) ==
LOC: MTLAB 15:18
PROVIDERS: PCP Internal Medicine; Referring Provider Physician Assistant Surgical; Visit Provider Physician Assistant Surgical
DX: R10.31 Right lower quadrant pain (principal)
CPT/HCPCS: 36415; 80053; 82150; 83690; 86431

== ENCOUNTER → 2022-08-04 | Outpatient (CLI) | payer MEDICAID, SELFPAY ==
[2022-08-04 14:03] LABS: Lipase 29 U/L (13-75)
== END | disposition home or self-care (01) ==
LOC: LAB 13:01
PROVIDERS: PCP Internal Medicine; Referring Provider Nurse Practitioner Adult Health; Visit Provider Nurse Practitioner Adult Health
DX: R74.8 Abnormal levels of other serum enzymes (principal)
CPT/HCPCS: 36415; 83690

== ENCOUNTER 2022-08-05 11:34 | Day surgery (SDC) | payer MEDICAID, SELFPAY ==
[2022-07-28 11:39] LABS: Hematocrit 40.9 % (37-47); Hemoglobin 14.2 g/dL (12.0-15.0); Mean Corp Hgb Conc 34.7 g/dL (32-36); Mean Corpuscular Hgb 31.3 pg (27.0-32.0); Mean Corpuscular Volume 90.3 fL (81-99); Mean Platelet Vol. 11.3 fl (6.2-12.0); Platelet Count 287 K/mm3 (150-450); RBC Distribution Width CV 12.2 % (11.6-14.6); RBC Distribution Width SD 40.6 fl (35.1-43.9); Red Blood Count 4.53 M/mm3 (4.2-5.4); White Blood Count 6.7 K/mm3 (4.4-11.0)
[2022-07-30 08:48] LABS: Thyroid Stim Hormone (TSH) 2.72 uIU/mL (0.358-3.74)
--- NOTE | 2022-08-05 07:20 | PCM.HP.BLA ---
History and Physical Date of Admission: 08/05/22 HPI: 36-year-old female with with pelvic pain and ovarian cyst plan for laparoscopic left ovarian cystectomy, possible left oophorectomy, possible right ovarian cystectomy, possible right oophorectomy, bilateral salpingectomy.? Denies headache or vision changes, chest pain or shortness of breath, nausea or vomiting, fevers or chills, diarrhea or constipation. PHYSICIAN NON INVASIVE CARDIOLOGIST history: G4, P4 Medical history: 1.? GERD 2. Anxiety 3. Thyroidism Surgical history: 1. Vaginal hysterectomy 2013 2.? Cholecystectomy 2021 3.? [place] tooth extraction 2002 4. Appendectomy Medications: 1.? Aspirin 81 mg qD 2.? Pepcid 20 mg qD 3. Calcitriol 4. Bupropion 5. Vitamin D 6. Dicyclomine 7. Levocetirizine 8. Tizanidine Allergies: Naproxen, fluoxetine, codeine Family history: Denies history of blood clots or bleeding disorders Social history: Denies tobacco, alcohol, drug use Review of system: Negative otherwise stated above Physical exam: Vitals pending General: No acute distress HEENT: Normocephalic/atraumatic, PERRLA Cardiac: Regular rate and rhythm Respiratory clear to auscultation bilaterally Abdomen: Soft, nontender, nondistended Extremities: No edema Neurologic: Cranial nerves II through XII grossly intact, no focal deficits Musculoskeletal: Strength out of 5 throughout extremities. Assessment/plan: 36-year-old female with with pelvic pain and ovarian cyst plan for laparoscopic left ovarian cystectomy, possible left oophorectomy, possible right ovarian cystectomy, possible right oophorectomy, bilateral salpingectomy. All risk, benefits, alternatives discussed with patient.? Risk include but are not limited to: Risk of bleeding plan transfusion, infection, injury to surrounding tissue including bowel/bladder/major abdominal vessels, VTE, ICU admission.? Patient aware and consented.
--- NOTE | 2022-08-05 11:58 | DCINST_ITS ---
Discharge Instructions Diet Discharge Diet: No restrictions Activity Discharge Activity: Return to Normal Activity and May Shower May resume sexual activity in: 2 weeks Weight Bearing Status: Weight bearing as tolerated Lifting Restrictions: No greater than 15 pounds Dressing / Incision Call your doctor if your incision/area has: Continuous Slow Oozing, Increased Pain/ Swelling, Increased Redness and Foul Smelling Discharge Call your doctor if you observe: Fever of 101 or Higher, Inability to urinate, Using more than 1 pad per hour, Shortness of breath, Chest pain, Calf discomfort and Uncontrolled pain Cleanse incision/area with: Soap & Water and Keep Dressing Clean & Dry Follow Up Care Please Follow Up With: Marley Vogel DO When: 2 weeks post operative visit. Test Results: Test results from this visit will be discussed in further detail at your follow- up appointment, if applicable. Discharge Plan Admission Primary Reason for Your Visit: Laparoscopic bilateral salpingectomy, right ovarian cyst removal Attending Provider: Marley Vogel Primary Care Provider: Levi Kent Discharge Orders/Prescriptions Prescriptions: New hydrocodone-acetaminophen 5-325 mg tablet 1 tab PO Q6H PRN (Reason: pain) 3 Days Qty: 10 0RF Continued levothyroxine 175 mcg tablet 175 mcg PO DAILY Qty: 90 3RF cholecalciferol (vitamin D3) 125 mcg (5,000 unit) capsule 125 mcg PO DAILY bupropion HCl [Wellbutrin XL] 150 mg tablet extended release 24 hr 150 mg PO QAM Qty: 30 2RF methylprednisolone [Medrol ([place])] 4 mg tablets,dose pack 4 mg PO PER PKG DIR 6 Days Qty: 21 0RF levocetirizine [Xyzal] 5 mg Tablet 5 mg PO QPM vitamin B28-[id number] acid 1,000-400 mcg Tablet, Sublingual 1 tab SUBLINGUAL QODAY calcitriol 0.5 mcg capsule 1.5 mcg PO QHS Qty: 90 2RF tizanidine [Zanaflex] 4 mg tablet 4 mg PO TID PRN (Reason: muscle spasticity) Qty: 30 2RF dicyclomine 20 mg tablet 20 mg PO TID PRN (Reason: abdominal pain) Qty: 90 5RF Referrals / Follow Up: Levi Kent MD [Primary Care Provider] - Disposition Disposition (needs filled in before D/C Order can be placed): Home, Self Care
--- NOTE | 2022-08-05 11:58 | PCM.OPRPT ---
Report of Operation Date of Procedure: 08/05/22 Pre-Operative Diagnosis: Bilateral ovarian cysts, pelvic pain Post-Operative Diagnosis: Right ovarian cyst, bilateral paratubal cysts, pelvic pain Surgery/Procedure Performed:: Laparoscopic bilateral salpingectomy, right ovarian cystectomy, lysis of adhesions Description of Surgical Findings:: Normal-appearing external genitalia. Bilateral paratubal cysts. Adhesion of intestinal fat to the left fallopian tube. Small right ovarian cyst, hemorrhagic in appearance. Left ovary adhesed to left pelvic sidewall, no ovarian cyst noted. Surgeon: Marley Vogel senior relationship manager: Rudolph Garsia Type of Anesthesia: General Specimen's removed: Bilateral fallopian tubes, right ovarian cyst wall Estimated Blood Loss (mL): 10 cc Fluids Replaced: 600cc Description of Procedure: Indications/Risks/Benefits: 36-year-old female with with pelvic pain and ovarian cyst plan for laparoscopic left ovarian cystectomy, possible left oophorectomy, possible right ovarian cystectomy, possible right oophorectomy, bilateral salpingectomy.? All risk, benefits, alternatives discussed with patient.? Risk include but are not limited to: Risk of bleeding plan transfusion, infection, injury to surrounding tissue including bowel/bladder/major abdominal vessels, VTE, ICU admission.? Patient aware and consented. Procedure: Patient taken to the operating room placed under general anesthesia. Patient placed in the dorsal lithotomy position prepped and draped in usual sterile fashion. Espino catheter placed and sponge stick placed in the vagina. Gloves were changed and attention turned to the anterior abdominal wall. Infraumbilical incision made with scalpel and trocar placed under direct visualization. Abdomen insufflated. Right lower quadrant trocars placed under direct visualization. Left fallopian tube was identified. Adhesions of bowel fat were lysed using sharp dissection with laparoscopic scissors as well as blunt dissection. LigaSure device used to remove left fallopian tube along the mesosalpinx. Fallopian tube placed posterior cul-de-sac for removal later. Small area of adhesion of the left ovary to pelvic sidewall lysed, hemostatic with LigaSure device. Right fallopian tube grasped at the fimbriated end and removed along mesosalpinx using LigaSure device. Fallopian tube placed in the posterior cul-de-sac as well. Right ovarian cyst incised and portion of cyst wall was removed using LigaSure device, removed through trocar. Bilateral fallopian tubes placed into an Endo Catch bag and removed through right lower quadrant trocar site. Pelvis suction irrigated. Hemostasis noted. Judi placed along the right ovary and left ovary. Hemostasis confirmed. Insufflation stopped. Trocars removed. Skin closed with subcuticular stitch and skin glue. At the end of the procedure all needle, lap, sponge counts were correct. UOP: 100cc clear yellow urine
[2022-08-05 12:14] VITALS: BP 103/77; PULSE 72; RESP 16; TEMP 36.8; O2SAT 100; BMI 23.4
[2022-08-05] MEDS: Lactated Ringers 1,000 ML 15 ML IV (12:19)
--- NOTE | 2022-08-05 13:30 | OV_PTH ---
PATIENT: AMY VILLEDA LOC: [facility] [place] U#:[id number] AGE/SX: 36/F ROOM: RE08/05/[address]: Dr. Marley Vogel DO : 1985 BED: DIS: 08/05/2022 SPEC #: [id number] RECD: 08/05/22 15:26 STATUS: NICOLE RELucy #: [id number] MERLE: 08/05/22 13:[address]: Marley Vogel DEPT: SURGICAL PATHOLOGY RECD BY: Cathy Dobson ENTERED: 08/06/22 08:53 SP TYPE: OVARY OTHR DR: Dr. Levi Kent MD Tissues: A - OVARIAN CYST B - Fallopian tube Procedures: Surgery Specimen Level II Surgery Specimen Level IV HEADER OPERATION: Laparoscopic right ovarian cystectomy, bilateral salpingectomy PRE-OP DIAGNOSIS: Pelvic pain, ovarian cyst TISSUE SUBMITTED: A ? Right ovarian cyst wall, B ? Bilateral fallopian tubes MICROSCOPIC DIAGNOSIS A. Right ovarian cyst wall, cystectomy: Consistent with hemorrhagic corpus luteal cyst. See comment. B. Bilateral fallopian tubes, salpingectomy: One fallopian tube - no pathologic diagnosis. Second fallopian tube ? focal hydrosalpinx. SJ:almaz 08/09/2022 COMMENT A. A minute fragment of fallopian tube epithelium is also noted in the specimen. MICROSCOPIC DESCRIPTION Slides are reviewed. GROSS DESCRIPTION A - Received in fixative is one container labeled with the patient's name and designated right ovarian cyst wall. The specimen consists of six variable sized pieces of congested soft tissue measuring in aggregate 2.2 x 1.5 x 0.3 cm. The entire specimen is submitted in one cassette. B - Received in fixative is one container labeled with the patient's name and designated bilateral fallopian tubes. The specimen consists of bilateral fallopian tubes including fimbrial ends measuring 2.5 cm in length and 1.0 cm in diameter and 5.0 cm in length and up to 1.0 cm in diameter. The smaller fallopian tube shows three paratubal cysts measuring 0.5 cm in greatest dimension and larger fallopian tubes shows two paratubal cysts measuring 0.6 and 0.7 cm in greatest dimension. A portion of the larger fallopian tube reveals a focally dilated lumen and multiloculated cystic lumen filled with clear fluid. The fallopian tubes are not identified as right or left. Sections reveal unremarkable cut surfaces. Subassembly Supervisor sections are submitted in three cassettes as follows: 1 & 2 - larger fallopian tube, 3??smaller fallopian tube. / DENZEL:almaz 08/06/2022 TC:5 CPT: 56869 x2, 41422
[2022-08-05 14:41] VITALS: BP 102/74; BP 103/77; PULSE 81; RESP 16; TEMP 37.2; O2SAT 100
[2022-08-05 14:45] VITALS: BP 103/77; BP 112/75; PULSE 78; RESP 16; O2SAT 100
[2022-08-05 15:00] VITALS: BP 103/77; BP 115/72; PULSE 62; RESP 16; O2SAT 99
[2022-08-05 15:15] VITALS: BP 103/77; BP 110/70; PULSE 66; RESP 16; TEMP 36.6; O2SAT 99
[2022-08-05 16:38] VITALS: BP 103/77; BP 109/72; PULSE 83; RESP 16; TEMP 36.1; O2SAT 100
== END 2022-08-05 16:51 | disposition home or self-care (01) ==
LOC: SDC 11:34 → AC 11:35
PROVIDERS: Anesthesiology; PCP Internal Medicine; Referring Provider Student in an Organized Health Care Education/Training Program; Visit Provider Student in an Organized Health Care Education/Training Program
PROC: (CPT 58661; principal; 2022-08-05 13:15)
DX: N83.11 Corpus luteum cyst of right ovary (principal); N70.11 Chronic salpingitis; K76.0 Fatty (change of) liver, not elsewhere classified; F41.0 Panic disorder [episodic paroxysmal anxiety]; F43.10 Post-traumatic stress disorder, unspecified; F32.A Depression, unspecified; E03.9 Hypothyroidism, unspecified; E53.8 Deficiency of other specified B group vitamins; F17.210 Nicotine dependence, cigarettes, uncomplicated; Z86.16 Personal history of COVID-19; Z79.899 Other long term (current) drug therapy
CPT/HCPCS: 58661; 58662; 00840; 36415; 84443; 85027; 86850; 86900; 86901; 88302; 88305; J7120; J2405; J3490

== ENCOUNTER → 2022-09-01 | Outpatient (CLI) | payer MEDICAID, SELFPAY ==
[2022-09-01 12:31] LABS: Absolute Lymphocyte Count 3.18 X10^3/uL (0.83-4.51); Absolute Neutrophil Count 2.7 X10^3/uL (2.0-7.7); Basophil# 0.09 X10^3/uL; Basophil% 1.3 % (0-1); Eosinophil# 0.17 X10^3/uL; Eosinophils% 2.5 % (0-5); Hematocrit 41.8 % (37-47); Lymphocyte # 3.18 X10^3/ul (0.83-4.51); Lymphocyte % 46.7 % (19-41); Mean Corp Hgb Conc 33.5 g/dL (32-36); Mean Corpuscular Hgb 30.3 pg (27.0-32.0); Mean Corpuscular Volume 90.5 fL (81-99); Mean Platelet Vol. 11.4 fl (6.2-12.0); Monocyte# 0.65 X10^3/uL; Monocyte% 9.5 % (0-10); NRBC Flagged by Analyzer 0 % (0-5); Neutrophil # 2.72 X10^3/uL (2.7-7.7); Platelet Count 277 K/mm3 (150-450); RBC Distribution Width CV 11.9 % (11.6-14.6); RBC Distribution Width SD 39.5 fl (35.1-43.9); Red Blood Count 4.62 M/mm3 (4.2-5.4); White Blood Count 6.8 K/mm3 (4.4-11.0)
[2022-09-01 13:08] LABS: ALB/GLOB Ratio 1.1 RATIO (0.9-2.4); AST(SGOT) 17 U/L (15-37); Alanine Aminotransfer ALT/SGPT 28 U/L (13-56); Alkaline Phosphatase 43 U/L (45-117); Anion Gap 6 (5-15); BUN 15 mg/dL (7-18); BUN/Creat Ratio 17.2 RATIO (10-20); Chloride 106 mmol/L (98-107); Creatinine, Serum 0.87 mg/dL (0.55-1.02); EST Glomerular Filtration Rate 77 mL/min (>60); Est Glom Filt Rate - Afr Amer 93 mL/min (>60); Globulin 3.5 g/dL (2.2-4.2); Glucose 56 mg/dL (74-106); Potassium 4.2 mmol/L (3.5-5.1); Protein, Total 7.5 g/dL (6.4-8.2); Sodium Level 140 mmol/L (136-145)
== END | disposition home or self-care (01) ==
LOC: MTLAB 10:29
PROVIDERS: PCP Internal Medicine; Referring Provider Physician Assistant; Visit Provider Physician Assistant
DX: I78.1 Nevus, non-neoplastic (principal); D18.01 Hemangioma of skin and subcutaneous tissue; L57.8 Other skin changes due to chronic exposure to nonionizing radiation
CPT/HCPCS: 36415; 80053; 85025

== ENCOUNTER → 2022-09-27 | Outpatient (CLI) | payer MEDICAID, SELFPAY ==
[2022-09-30 12:09] LABS: HPV APTIMA, High Risk Negative (Negative)
== END | disposition home or self-care (01) ==
LOC: LABSPEC 10:39
PROVIDERS: PCP Internal Medicine; Visit Provider Student in an Organized Health Care Education/Training Program
DX: Z12.4 Encounter for screening for malignant neoplasm of cervix (principal)
CPT/HCPCS: 87624; 88175; G0145

== ENCOUNTER 2022-10-27 08:49 | Emergency (ER) | payer MEDICAID, SELFPAY ==
[2022-10-27 08:51] VITALS: BP 113/79; PULSE 107; RESP 14; TEMP 36.6; O2SAT 100; BMI 23.0
--- NOTE | 2022-10-27 08:52 | EDS_ITS ---
HPI History of Present Illness Chief Complaint: Lower Extremity Injury [facility] Medical History (Updated 10/27/22 @ 09:[address] Sergei Pruett, DO) Abdominal pain Abnormal tumor markers Abnormal urinalysis Abscess of left axilla Annular tear of lumbar disc Anterior neck pain Anxiety Arthritis Asthma Back pain Bloating Bradycardia Cardiology follow-up encounter Carpal tunnel syndrome Chest pain Chronic constipation COVID-19 (03/17/21) Degenerative disc disease at L5-S1 level Depression Diarrhea Diverticulosis Duodenal mass Elevated lipase Epigastric pain Fatty liver Generalized anxiety disorder with panic attacks H/O breast lump Hepatomegaly Hidradenitis suppurativa History of COVID-19 History of hiatal hernia History of Holter monitoring History of pain when walking History of stress test Hx of cystic acne Hypocalcemia Hypocalcemia syndrome Hypoglycemia Hypokalemia Hypothyroidism Injury of head and neck Intermittent palpitations Irregular heart beat Kidney stones Leg cramps Leg cramps Low calcium levels Low vitamin B12 level Other acute postprocedural pain Paresthesia Pelvic pain Polycystic ovaries Post-surgical hypoparathyroidism Postoperative hypothyroidism PTSD (post-traumatic stress disorder) Renal colic on right side Right flank pain Right groin pain Right lower quadrant pain Right ovarian cyst Right renal stone Seasonal allergies Shortness of breath on exertion Shortness of breath on exertion Smoker Suprapubic discomfort Syncope Tenesmus (rectal) Tinea pedis of both feet TMJ (temporomandibular joint syndrome) Tobacco use Unintentional weight loss Upper respiratory infection Ureteral calculus, right Urgency of urination Urinary frequency Urinary tract infection Vertigo Wears dentures Home Medications levothyroxine 175 mcg tablet 175 mcg PO DAILY #90 tabs 06/25/22 [Rx Last Taken 08/05/22 05:00] bupropion HCl 150 mg 24 hr tablet, extended release (Wellbutrin XL) 150 mg PO QAM #30 tabs 07/01/22 [Rx Last Taken Unknown] cholecalciferol (vitamin D3) 125 mcg (5,000 unit) capsule 125 mcg PO DAILY 0 07/01/22 [History Last Taken Unknown] levocetirizine 5 mg tablet (Xyzal) 5 mg PO QPM 07/29/22 [History Last Taken Unknown] vitamin B12 1,000 mcg-folic acid 400 mcg sublingual tablet 1 tab sublingual QO DAY 07/29/22 [History Last Taken Unknown] dicyclomine 20 mg tablet 20 mg PO TID PRN abdominal pain #90 tabs 08/02/22 [Rx Last Taken Unknown] hydrocodone-acetaminophen 5-325mg 5mg-325mg 1 tab PO Q6H PRN pain 3 days #10 tabs 08/05/22 [Rx Last Taken Unknown] tizanidine 4 mg tablet See Rx Instructions .Route .COMPLEX #30 tabs 08/30/22 [Rx Last Taken Unknown] calcitriol 0.5 mcg capsule 1.5 mcg (3 x 0.5 mcg) PO QHS calcium #90 caps 09/09/22 [Rx Last Taken Unknown] prednisone 20 mg tablet 40 mg (2 x 20 mg) PO DAILY #5 tabs 10/27/22 [Rx Last Taken Unknown] Allergy/AdvReac Type Severity Reaction Status Date / Time codeine Allergy Mild Itching Verified 10/27/22 09:17 fluoxetine [From Prozac] AdvReac EDWIN Verified 10/27/22 09:17 naproxen [From Naprosyn] AdvReac NOSEBLEED Verified 10/27/22 09:17 Family History Father Alcoholism Mother Anemia Depression Hypertension Hyperlipemia Diabetes Grandfather Diabetes Myocardial infarction Grandmother Breast cancer Diabetes Surgical History (Updated 09/03/22 @ 08:11 by Tika Gibbs) H/O thyroidectomy History of appendectomy History of cholecystectomy History of esophagogastroduodenoscopy (EGD) History of incision and drainage History of partial hysterectomy History of thyroidectomy History of total hysterectomy S/P appendectomy S/P hysterectomy Social History household members: none Smoking Status: Current every day smoker tobacco type: cigarettes Tobacco: How many years used: 20 alcohol intake: never substance use type: does not use what type of physical activity do you participate in: none EXAM Physical Exam Const Vital Signs: 10/27/22 08:51 Temperature 97.8 F Temperature Source Temporal Pulse Rate 107 H Respiratory Rate 14 Blood Pressure 113/79 Blood Pressure Mean 90 Pulse Ox 100 Oxygen Delivery Method Room Air MDM MDM MDM Narrative Medical decision making narrative: HISTORY OF PRESENT ILLNESS: 37-year-old female here for hip and back pain. States she fell 1 week ago. States she was walking her dog. The dog pulled the patient forward she felt a strain in her right lower back. She landed on her knees. She is not fall on her back. Denies any head trauma loss ofconsciousness. She notes pain radiates down her right leg. Pain is worse with movement and palpation. Patient denies any saddle anesthesia, urinary retention, bowel or bladder incontinence, lower extremity weakness, fever or IV drug use, no recent spinal manipulation or surgery, no recent urinary catheterization. REVIEW OF SYSTEMS: Pertinent positives: Hip pain/back pain Pertinent negatives: Urinary tension, bowel or bladder incontinence, focal weakness, saddle anesthesia PHYSICAL EXAM: Nursing triage notes reviewed, Vital signs reviewed Constitutional: please see mdm Lungs: Clear to auscultation, No wheezing or rales. No increased work of breathing, no conversational dyspnea, no accessory muscle use, no nasal flaring. No respiratory distress noted Heart: Regular rate and rhythm, No murmurs, No rubs and No gallops, 2+ distal pulses (radial, femoral, posterior tibial) in all extremities Abdomen: Soft, there is no tenderness, rigidity, rebound or guarding, no obvious peritoneal signs, no palpable pulsatile abdominal masses, no auscultated abdominal bruit : No CVAT Extremities: No edema Back: TTP over right lower paraspinal musculature Neuro: Intact sensation L1-S1 dermatomal distributions. Intact 5/5 strength in hip flexion (T12-L3). Knee extension (L2-L4). Ankle dorsiflexion (L4-L5). Ankle plantar flexion (S1). Great toe extension (L5). 2+ patellar and Achilles DTRs. Skin: No rash or lesions noted MEDICAL DECISION MAKING: Chief Complaint: Hip and back pain External records reviewed: X-ray of the hip and pelvis from January 2021 shows normal exam of the pelvis and hip Factors affecting care: none degenerative disc disease, L5-S1 level Social determinants of health: Tobacco user History obtained from others: The patient's boyfriend Consults: none ALL IMAGES (IF OBTAINED) HAVE BEEN PERSONALLY REVIEWED AND INTERPRETED BY MYSELF. [facility] Narrative: Patient was hemodynamically stable, afebrile, nontoxic-appearing I considered the following differential diagnosis: msk pain, lumbar muscle strain, space occupying lesion of the spine I considered obtaining imaging of the spine and hip however there is no direct trauma to the spine or hip. Patient's presentation is most consistent with a musculoskeletal etiology likely underlying mechanism is inflammatory changes secondary to likely lumbar spine muscle strain likely exacerbated by history of degenerative disc disease. There is a component of lumbar radiculopathy as well. The patient had no red flag symptoms to suggest a space-occupying lesion of the spine such as epidural abscess, epidural hematoma. No indication for emergent MRI at this time. The patient was given symptomatic control with oral narcotics here (but not for home-going), anti-inflammatories, Tylenol. I discharged the patient with oral anti-inflammatories including prednisone and instructions to take Tylenol and ibuprofen as needed. She was given strict return precautions and follow-up instructions. The patient and/or family, caregivers express understanding. The patient and/or family, caregivers agrees with the plan. Total critical care time today provided was at least 0 minutes. This excludes separately billable procedures. Critical care time (if documented) is secondary to the patient having high probability of clinically significant/life threatening deterioration in the patient's condition which required my urgent intervention. Shared decision making: I will have a discussion with the patient and or visitors regarding risk/benefits of further testing or admission. They will be made aware of of the risk/benefits inherent in this decision they will be given the opportunity to voice understanding. Discharge Plan Triage Chief Complaint: Lower Extremity Injury ED Provider: Sergei Pruett Dx/Rx/DC Orders Clinical Impression: Acute lumbar radiculopathy, Back strain Instructions: ED Back Sprain/Strain Prescriptions: New prednisone 20 mg tablet 40 mg PO DAILY Qty: 5 0RF No Action levothyroxine 175 mcg tablet 175 mcg PO DAILY Qty: 90 3RF cholecalciferol (vitamin D3) 125 mcg (5,000 unit) capsule 125 mcg PO DAILY bupropion HCl [Wellbutrin XL] 150 mg tablet extended release 24 hr 150 mg PO QAM Qty: 30 2RF levocetirizine [Xyzal] 5 mg Tablet 5 mg PO QPM vitamin B44-rwqho acid 1,000-400 mcg Tablet, Sublingual 1 tab SUBLINGUAL QODAY hydrocodone-acetaminophen 5-325 mg tablet 1 tab PO Q6H PRN (Reason: pain) 3 Days Qty: 10 0RF dicyclomine 20 mg tablet 20 mg PO TID PRN (Reason: abdominal pain) Qty: 90 5RF tizanidine 4 mg tablet See Rx Instructions .ROUTE .COMPLEX Qty: 30 2RF Dose Instruction: TAKE 1 TABLET BY MOUTH THREE TIMES DAILY NEEDED MUSCLE spasticity Rx Instructions: TAKE 1 TABLET BY MOUTH THREE TIMES DAILY NEEDED MUSCLE spasticity calcitriol 0.5 mcg capsule 1.5 mcg PO QHS Qty: 90 2RF Stand Alone Forms: ED Work / School Excuse Primary Care Provider: Levi Kent Referrals: Levi Kent MD [Primary Care Provider] - Activity Restrictions/Additional Instructions: Thank you for trusting us with your care today! Please take Tylenol (2 pills, 650 mg), ibuprofen (2 pills, 400 mg) every 6 hours as needed for pain and fever control. Please take prednisone as prescribed. Please return to the emergency department if your symptoms change or worsen. Specifically if you develop loss of bowel or bladder function, urinary retention, loss of movement or sensation in your legs, loss of feeling around your private parts. Please follow with your primary care physician for further outpatient evaluation and management. Disposition Disposition: Home, Self Care
[2022-10-27] MEDS: Ibuprofen 200 MG Tablet 400 MG PO (09:18)
[2022-10-27] MEDS: dexAMETHasone 4 MG Tablet PO (09:19)
== END 2022-10-27 09:56 | disposition home or self-care (01) ==
LOC: ED 09:18
PROVIDERS: Emergency Provider Emergency Medicine; PCP Internal Medicine; Visit Provider Emergency Medicine
DX: S39.012A Strain of muscle, fascia and tendon of lower back, initial encounter (principal); M54.16 Radiculopathy, lumbar region; F17.210 Nicotine dependence, cigarettes, uncomplicated; K76.0 Fatty (change of) liver, not elsewhere classified; Z86.16 Personal history of COVID-19; W19.XXXA Unspecified fall, initial encounter

== ENCOUNTER → 2022-10-27 | Outpatient (CLI) | payer MEDICAID, SELFPAY ==
[2022-10-27 12:23] LABS: Absolute Lymphocyte Count 1.68 X10^3/uL (0.83-4.51); Absolute Neutrophil Count 7.6 X10^3/uL (2.0-7.7); Basophil# 0.07 X10^3/uL; Basophil% 0.7 % (0-1); Eosinophil# 0.07 X10^3/uL; Eosinophils% 0.7 % (0-5); Hematocrit 45.2 % (37-47); Hemoglobin 15.5 g/dL (12.0-15.0); Lymphocyte # 1.68 X10^3/ul (0.83-4.51); Lymphocyte % 17.1 % (19-41); Mean Corp Hgb Conc 34.3 g/dL (32-36); Mean Corpuscular Hgb 30.6 pg (27.0-32.0); Mean Corpuscular Volume 89.2 fL (81-99); Mean Platelet Vol. 11.8 fl (6.2-12.0); Monocyte# 0.38 X10^3/uL; Monocyte% 3.9 % (0-10); NRBC Flagged by Analyzer 0 % (0-5); Neutrophil # 7.62 X10^3/uL (2.7-7.7); Neutrophil % 77.3 % (47-70); Platelet Count 274 K/mm3 (150-450); RBC Distribution Width CV 12.2 % (11.6-14.6); RBC Distribution Width SD 39.6 fl (35.1-43.9); Red Blood Count 5.07 M/mm3 (4.2-5.4); White Blood Count 9.9 K/mm3 (4.4-11.0)
[2022-10-27 13:17] LABS: ALB/GLOB Ratio 1.2 RATIO (0.9-2.4); AST(SGOT) 11 U/L (15-37); Alanine Aminotransfer ALT/SGPT 24 U/L (13-56); Albumin, Serum 4.2 g/dL (3.2-5.0); Alkaline Phosphatase 46 U/L (45-117); Anion Gap 5 (5-15); BUN 15 mg/dL (7-18); BUN/Creat Ratio 16.8 RATIO (10-20); Calcium,Total 8.8 mg/dL (8.5-10.1); Chloride 106 mmol/L (98-107); Cholesterol 124 mg/dL (200); EST Glomerular Filtration Rate 75 mL/min (>60); Est Glom Filt Rate - Afr Amer 90 mL/min (>60); Globulin 3.4 g/dL (2.2-4.2); Glucose 90 mg/dL (74-106); High Density Lipoprotein 42 mg/dL; Potassium 4.3 mmol/L (3.5-5.1); Protein, Total 7.6 g/dL (6.4-8.2); Sodium Level 137 mmol/L (136-145); Triglycerides 97 mg/dL; Very Low Density Lipoprotein 19 mg/dL (5-40)
== END | disposition home or self-care (01) ==
LOC: BIMLAB 11:32
PROVIDERS: PCP Internal Medicine; Visit Provider Internal Medicine
DX: Z00.00 Encounter for general adult medical examination without abnormal findings (principal); S39.012A Strain of muscle, fascia and tendon of lower back, initial encounter; M54.16 Radiculopathy, lumbar region; K76.0 Fatty (change of) liver, not elsewhere classified; Z86.16 Personal history of COVID-19; W19.XXXA Unspecified fall, initial encounter
CPT/HCPCS: 36415; 80053; 80061; 85025; 99283

== ENCOUNTER → 2022-11-03 | Outpatient (CLI) | payer MEDICAID, SELFPAY ==
[2022-11-03 13:23] LABS: Anion Gap 6 (5-15); BUN 18 mg/dL (7-18); BUN/Creat Ratio 21.3 RATIO (10-20); Chloride 105 mmol/L (98-107); Creatinine, Serum 0.84 mg/dL (0.55-1.02); EST Glomerular Filtration Rate 80 mL/min (>60); Est Glom Filt Rate - Afr Amer 96 mL/min (>60); Glucose 80 mg/dL (74-106); Potassium 4.3 mmol/L (3.5-5.1); Sodium Level 140 mmol/L (136-145)
--- NOTE | 2022-11-03 13:26 | RAD_ITS ---
INDICATION: Radiculopathy EXAMINATION/TECHNIQUE: X-RAY - XR Spine Cervical 2 or 3 Views COMPARISON: 08/09/2017 cervical spine radiographs. FINDINGS: 3 views of the cervical spine. BONES: Normal anatomic alignment without evidence of fracture or subluxation. No concerning bony lesion or abnormal sclerosis to suggest lesion. DISCS/JOINTS: No significant degenerative change. SOFT TISSUES: Thyroidectomy clips in place.. RAD/Cerv Spine 2 or 3 Views IMPRESSION: Unremarkable cervical spine. If there is persistent clinical concern for spine fracture and this is a trauma patient, recommend dedicated cervical spine CT. Electronically Signed: Av Ha MD at 21:25 EDT ,
== END | disposition home or self-care (01) ==
PROVIDERS: PCP Internal Medicine; Referring Provider Internal Medicine; Visit Provider Internal Medicine
DX: M54.10 Radiculopathy, site unspecified (principal)
CPT/HCPCS: 36415; 72040; 80048

== ENCOUNTER 2022-12-08 07:25 | Day surgery (SDC) | payer MEDICAID, SELFPAY ==
[2022-12-08] VITALS (7 sets, daily range): BP systolic 88–101; BP diastolic 57–65; PULSE 62–76; RESP 16–18; TEMP 37.1–37.2; O2SAT 96–100; BMI 24.0
[2022-12-08] MEDS: Lactated Ringers 1,000 ML 15 ML IV (07:58)
--- NOTE | 2022-12-08 08:26 | HP.PCM_ITS ---
History and Physical Date of Admission: 12/08/22 37 F who presents to the office today for PMH DMII? 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 H.Pylori negative. ? CT abd/pel 04.06.21 for umbilical hernia normal liver; distal colonic diverticulosis. ? Biochemical AST H43, total bilirubin H1.40 *BGI established 02.04. abdominal pain and watery diarrhea with mucus occurring multiple times a day with urgency causing incontinence. ? Biochemical hepatitis, ANOOP, ANCA, AFP, AMA, ASM, ceruloplasmin, GAME, Vit D 1,25, celiac, TSH, T3, Vit D25, CRP, LDH, ammonia, ferritin, CMP, ESR, CBCwithout pertinent abnormality. ASTH38/ALT H81, A1c H10.1 Stool calprotectin, elastase, ova/parasite, giardia, C.Difficile, enteric pathogens WNL? Lactoferrin +, fecal fats elevated ? GET 11.8.22 WNL with time at 25.39 minutes (12-56). OV 04.30.22 doing better than previously. Postprandial lower abdominal pain and loose stools continue without food trigger. Started cinnamon pills three months prior and feels these have been helpful with this and glucose control. Start creon ? EGD and colonoscopy 08.31.22 EGD irregular Zline; gastritis; duodenitis. No path changes ? Colonoscopy contested colonic mucosa and TI.? No path changes OV 09.03.22 include Zenpep with snacks, Start colestipol ? US and elastography 06.25.22/6.16.23 hepatic measurement 18cm, stiffness 10.1kPa. ? 3.14.23 FIB 4 1.39 OV 8.28.23 if he eats a lot of food he gets and upper esophageal fullness requiring liquids; pays attention to bite sizes and chew well. He continues with Zenpep; colestipol has stopped and loose stools are under control Endocrinology established with A1c 11; continue metformin, glimepiride, farxiga, increase 50/50 to 50units TID, start Mounjaro. Has been changing his diet. ROS Const Constitutional: No body ache, chills, excessive sweating, fatigue, fever(s), frequent falls, headache(s), snoring, weakness, sleep problems or change in appetite Eyes Eyes: No blurry vision, change in vision, bulging eyes, floaters, eye pain or Light sensitivity ENT ENT: No abnormal hearing, ear or mastoid pain, tinnitus, balance problems, nosebleed/epistaxis, nasal congestion, headache(s), neck pain or sore throat Resp Respiratory: No cough, excessive phlegm production, pain on inspiration, shortness of breath, snoring or wheezing Cardio Cardiology: No chest pain at rest, chest pain with exertion, excessive sweating, shortness of breath, dyspnea on exertion, lightheadedness, orthopnea or palpitations Gastro GI: No abdominal pain, change in bowel habits, constipation, cramping, diarrhea, Vomiting blood/hematemesis or vomiting Genitourinary-Female: No burning urination, painful urination, urinary incontinence, blood in urine, suprapubic fullness or side pain Musc Musculoskeletal: Positive for back pain (mid and lower back pain); No abnormal gait, joint pain, limited range of motion, neck pain, numbness or tingling Skin Skin: No dry skin, redness, lesions, itchy eyes, rash or wounds Breast Breast: No change in breast shape, breast lump, breast pain, breast skin changes, breast swelling or nipple discharge Neuro Neurology: No abnormal gait, abnormal hearing, weakness, frequent falls, headache(s), numbness or tingling Psych Psychiatric: No anxiety, No change in appetite, No depression and No Thoughts of harming yourself/Others Endo Endocrine: No excessive sweating, fatigue, flushing, heat intolerance, increased thirst/drinking or increased hunger Aller/Imm Allergy/Immunologic: No itchy eyes, seasonal allergy symptoms, hives or wheezing Alec/Lymp Hematologic/Lymphatic: No easy bleeding, easy bruising or enlarged lymph nodes Exam Const General: cooperative, comfortable and no acute distress Orientation: alert, awake and oriented x3 HENMT Head: normal to inspection, normocephalic and atraumatic Ears: hearing grossly normal bilaterally Eyes General: appearance normal, both eyes and all related structures Neck Neck: normal visual inspection, full ROM, no lymphadenopathy and supple Neck mass: No Thyroid: thyroid normal Resp Effort & Inspection: normal respiratory effort and able to speak in complete sentences Auscultation: Bilateral: Clear to Auscultation Cardio Rate: regular rate Rhythm: regular rhythm Heart Sounds: S1 normal and S2 normal GI Palpation: soft (No palpable organomegaly) Neuro General: patient alert, patient awake, patient oriented x3, moves all extremities and CN's II-XI intact bilaterally Extrem General: no clubbing, cyanosis or edema Psych Appearance: grossly normal Mental Status: mental status grossly normal Mood: congruent mood Affect: normal affect Quality Reporting Tobacco Screening ([facility] 138) Smoking Status: Current every day smoker Assessment and Plan Assessment and Plan (1) Chronic constipation: Status: Chronic Plan: Chronic idiopathic constipation in the setting of IBS. She is taking dicyclomine scheduled which I think is helping her abdominal pain. However it is contributing to her constipation because of her lack of appetite and fear of eating secondary to crampy abdominal pain. I will have her only take the dicyclomine prior to her eating to hopefully help her symptoms and help her bowels improve. Previously she was IBS with diarrhea and this is now switched as she has lost weight and stopped eating as much. (2) Fatty liver: Status: Chronic Plan: She had a FibroScan that it shows that her inflammation in her was 6.5 kPa which is equivalent to an METAVIR 1-2. Since then she has lost a significant amount of weight. We will need to repeat the FibroScan in approximately 8 months. (3) Pancreatitis, chronic: Status: Chronic Plan: I do not suspect that she has chronic pancreatitis. She has had episodes of acute pancreatitis but no evidence of chronic pancreatitis on imaging, by history or biochemical or stool analysis. (4) Gastric intestinal metaplasia: Status: Chronic Comment: Submucosal mass on EGD 6.28.22 Plan: We will repeat her upper endoscopy in the future. Her last upper endoscopy did not show any gastric intestinal metaplasia in the duodenal mass that was biopsied previously. There is also no signs or symptoms of any activity in the gastrointestinal metaplasia associated duodenal lesion. (5) Abdominal pain: Status: Inactive Plan: I think her abdominal pain is mild. Pain associated with pelvic floor dysfunction or pelvic dyssynergia. We will refer her to a pelvic wood flooring specialist. (6) Unintentional weight loss: Status: Inactive Plan: Her weight loss has been intentional being that she does not eat because she is scared to have abdominal pain. Hopefully as we transition her to dental prior to meals and have her see a pelvic wood flooring specialist will be able to help with a lot of her issues regarding pain with urination, pain with defecation and pelvic pain on a general basis. (7) Tenesmus (rectal): Status: Inactive (8) Bloating: Status: Inactive (9) Diverticulosis: Status: Inactive Medications: New amitriptyline 25 mg PO QHS 30 tabs 3RF I have examined the patient and the H&P has been reviewed. There are no clinical changes since date of exam.
--- NOTE | 2022-12-08 08:30 | EGD_PTH ---
PATIENT: AMY VILLEDA LOC: [facility] U#:[id number] AGE/SX: 37/F ROOM: RE12/08/[address]: Dr. Jules Rene DO : 1985 BED: DIS: 12/08/2022 SPEC #: [id number] RECD: 12/08/22 09:43 STATUS: NICOLE RIAN #: [id number] MERLE: 12/08/22 08:[address]: Jules Rene DEPT: SURGICAL PATHOLOGY RECD BY: Cathy Dobson ENTERED: 12/08/22 10:59 SP TYPE: EGD BIOPSY JOSE L DR: Dr. Levi Kent MD Tissues: A - Gastric mucous membrane B - Gastric mucous membrane C - Duodenum, NOS Procedures: Surgery Specimen Level IV HEADER OPERATION: EGD, biopsy PRE-OP DIAGNOSIS: Chronic constipation, fatty liver, pancreatitis, abdominal pain, bloating TISSUE SUBMITTED: A - Gastric body ulcer biopsy, B - Gastric antrum biopsy for histo and H. pylori, C - Duodenum biopsy MICROSCOPIC DIAGNOSIS A. Gastric body ulcer, biopsy: Fragments of gastric mucosa with superficial erosion and mild acute and chronic inflammation. B. Gastric antrum, biopsy: Mild gastritis. See microscopic description and comment. C. Duodenum, biopsy: Fragments of duodenal mucosa with Farooq gland hyperplasia. SJ:rg 12/09/2022 COMMENT B. The results of immunohistochemistry for Helicobacter pylori will be reported separately ([id number]). MICROSCOPIC DESCRIPTION Slides are reviewed. A. The specimen shows fragments of gastric mucosa with chronic inflammatory cell infiltrates in the lamina propria consisting of lymphocytes and plasma cells, consistent with mild chronic gastritis. GROSS DESCRIPTION A - Received in fixative is one container labeled with the patient's name and designated gastric body ulcer. The specimen consists of two irregular fragments of light whyte soft tissue that in aggregate measure 0.8 x 0.5 x 0.1 cm. The specimen is totally submitted in one cassette. B - Received in fixative is one container labeled with the patient's name and designated gastric antrum. The specimen consists of two irregular fragments of light whyte soft tissue that in aggregate measure 0.6 x 0.4 x 0.1 cm. The specimen is totally submitted in one cassette. C - Received in fixative is one container labeled with the patient's name and designated duodenum biopsy. The specimen consists of multiple irregular fragments of light whyte soft tissue that in aggregate measure 0.8 x 0.5 x 0.1 cm. The specimen is totally submitted in one cassette. / SJ:rg 12/08/2022 TC:2 CPT: 80870 x3
--- NOTE | 2022-12-08 08:30 | IMM_PTH ---
PATIENT: AMY VILLEDA LOC: EN U#:[id number] AGE/SX: 37/F ROOM: RE12/08/[address]: Dr. Jules Rene DO : 1985 BED: DIS: 12/08/2022 SPEC #: [id number] RECD: 12/08/22 13:57 STATUS: NICOLE RELucy #: [id number] MERLE: 12/08/22 08:[address]: Jules Rene DEPT: IMMUNOHISTOCHEMISTRY RECD BY: Chelle Dias ENTERED: 12/08/22 13:57 SP TYPE: IMMUNO OTHR DR: Dr. Levi Kent MD Tissues: B - Stomach, NOS Procedures: H Pylori (initial) PHYSICIAN & INSTITUTION [place] [id number] SPECIMEN INFORMATION: Tissue Source: B - Gastric antrum Clinical Info: Chronic constipation, fatty liver, pancreatitis, GI metaplasia, abdominal pain Specimen Number: [id number] CPT code: 13753 METHODOLOGY: Deparaffinized sections of prefer/formalin-fixed tissue or PAP/DQ stained slides are incubated with monoclonal/polyclonal antibodies/oligonucleotide probes. Localization is made via biotin free immunoperoxidase method. Appropriate controls are performed and reacted as expected. Results on target cell population are indicated in the following table: RESULTS: ANTIBODY / CLONE RESULT Block B H Pylori (polyclonal) negative These tests were developed and their performance characteristics determined by [facility]. They may not have been cleared or approved by the U.S. Food and Drug Administration. The FDA has determined that such clearance or approval is not necessary. The above immunohistochemical/dualISH markers are ordered and reviewed by the Pathologist. INTERPRETATION: B. Gastric antrum, biopsy: Negative for Helicobacter pylori organisms. DENZEL:almaz 12/09/2022
--- NOTE | 2022-12-08 08:48 | OP.EGD_ITS ---
Patient Name: Isabel Sparks Procedure Date: 12/08/2022 8:28 AM Date of : 1985 Age: 37 Procedure: Upper GI endoscopy Indications: Epigastric abdominal pain Providers: Jules Rene DO Medicines: Monitored Anesthesia Care Patient Profile: This is a 37 year old female. Refer to note in patient chart for documentation of history and physical. Patient has symptoms of acute abdominal cramping and acute epigastric abdominal pain. Complications: No immediate complications. Procedure: Pre-Anesthesia Assessment: - Prior to the procedure, a History and Physical was performed, and patient medications and allergies were reviewed. The patient is competent. The risks and benefits of the procedure and the sedation options and risks were discussed with the patient. All questions were answered and informed consent was obtained. Patient identification and proposed procedure were verified by the physician in the pre-procedure area. Mental Status Examination: alert and oriented. Airway Examination: normal oropharyngeal airway and neck mobility. Respiratory Examination: clear to auscultation. CV Examination: normal. Prophylactic Antibiotics: The patient does not require prophylactic antibiotics. Prior Anticoagulants: The patient has taken no anticoagulant or antiplatelet agents. ASA Grade Assessment: III - A patient with severe systemic disease. After reviewing the risks and benefits, the patient was deemed in satisfactory condition to undergo the procedure. The anesthesia plan was to use monitored anesthesia care (MAC). Immediately prior to administration of medications, the patient was re-assessed for adequacy to receive sedatives. The heart rate, respiratory rate, oxygen saturations, blood pressure, adequacy of pulmonary ventilation, and response to care were monitored throughout the procedure. The physical status of the patient was re-assessed after the procedure. After obtaining informed consent, the endoscope was passed under direct vision. Throughout the procedure, the patient's blood pressure, pulse, and oxygen saturations were monitored continuously. The gastroscope was introduced through the mouth, and advanced to the second part of duodenum. The upper GI endoscopy was accomplished without difficulty. The patient tolerated the procedure well. Scope In: 8:37:03 AM Scope Out: 8:41:01 AM Total Procedure Duration Time 0 hours 3 minutes 58 seconds Findings: The examined esophagus was normal. One oozing cratered gastric ulcer with pigmented material was found in the gastric body. The lesion was 9 mm in largest dimension. Area was successfully injected with 5 mL of a 0.1 mg/mL solution of epinephrine for drug delivery. Coagulation for hemostasis using heater probe was successful. Estimated blood loss was minimal. Biopsies were taken with a cold forceps for histology. Verification of patient identification for the specimen was done. Estimated blood loss was minimal. Patchy mild inflammation characterized by erosions and erythema was found in the gastric antrum. Biopsies were taken with a cold forceps for Helicobacter pylori testing. Verification of patient identification for the specimen was done. Estimated blood loss was minimal. Biopsies were taken with a cold forceps for histology. Verification of patient identification for the specimen was done. Estimated blood loss was minimal. Patchy mildly erythematous mucosa without active bleeding and with no stigmata of bleeding was found in the duodenal bulb and in the first portion of the duodenum. Biopsies were taken with a cold forceps for histology. Verification of patient identification for the specimen was done. Estimated blood loss was minimal. Impression: - Normal esophagus. - Oozing gastric ulcer with pigmented material. Injected. Treated with a heater probe. Biopsied. - Chronic gastritis. Biopsied. - Erythematous duodenopathy. Biopsied. Recommendation: - Discharge patient to home. - Resume previous diet. - Continue present medications. - Await pathology results. - Repeat upper endoscopy to check healing. - Sulcrafate 1 g p.o. 3 times daily and PPI as previously ordered Procedure Code(s): --- Professional --- 83041, 59, Esophagogastroduodenoscopy, flexible, transoral; with control of bleeding, any method 15976, 51, Esophagogastroduodenoscopy, flexible, transoral; with biopsy, single or multiple 42551, 59, Esophagogastroduodenoscopy, flexible, transoral; with directed submucosal injection(s), any substance CPT copyright 2021 [employer]. All rights reserved. The codes documented in this report are preliminary and upon linseed oil order filler review may be revised to meet current compliance requirements. Jules Rene DO 12/08/2022 8:48:16 AM This report has been signed electronically. Number of Addenda: 0 Note Initiated On: 12/08/2022 8:28 AM
--- NOTE | 2022-12-08 08:48 | OP.CCLET_ITS ---
12/08/2022 Levi Kent MD [address] [place] [address] [place] [address] Re : Upper GI endoscopy procedure for Isabel Sparks Dear Dr. Kent This procedure was performed on Thursday, December 08, 2022. My impressions and recommendations are as follows: Impressions : - Normal esophagus. - Oozing gastric ulcer with pigmented material. Injected. Treated with a heater probe. Biopsied. - Chronic gastritis. Biopsied. - Erythematous duodenopathy. Biopsied. Recommendations : - Discharge patient to home. - Resume previous diet. - Continue present medications. - Await pathology results. - Repeat upper endoscopy to check healing. - Sulcrafate 1 g p.o. 3 times daily and PPI as previously ordered My findings are described in the full procedure note, which is enclosed. If I can be of further assistance, please feel free to contact me at . Sincerely, Jules Rene, 12/08/2022 8:48:16 AM This report has been signed electronically.
== END 2022-12-08 09:27 | disposition home or self-care (01) ==
LOC: EN 07:25 → AC 07:26
PROVIDERS: PCP Internal Medicine; Referring Provider Internal Medicine; Visit Provider Internal Medicine Gastroenterology
PROC: 0DJ08ZZ Inspection of Upper Intestinal Tract, Via Natural or Artificial Opening Endoscopic (ICD-10-PCS; CPT 43235; principal; 2022-12-08 08:25)
DX: K25.3 Acute gastric ulcer without hemorrhage or perforation (principal); K59.09 Other constipation; K29.50 Unspecified chronic gastritis without bleeding; F17.200 Nicotine dependence, unspecified, uncomplicated; K76.0 Fatty (change of) liver, not elsewhere classified; M54.9 Dorsalgia, unspecified; G89.29 Other chronic pain; F41.9 Anxiety disorder, unspecified; F32.A Depression, unspecified; E03.9 Hypothyroidism, unspecified; Z79.899 Other long term (current) drug therapy; Z80.0 Family history of malignant neoplasm of digestive organs; Z86.16 Personal history of COVID-19
CPT/HCPCS: 43239; 43255; 43236; 88305; 88342; J7120; J2405

== ENCOUNTER 2023-01-06 07:53 | Outpatient (RCR) | payer MEDICAID, SELFPAY ==
--- NOTE | 2023-01-06 08:58 | HP.PTEVAL ---
Patient's Visit Information Visit Information Visit Information: AMY VILLEDA is a 37 year old F referred to Physical Therapy by FREDY Odonnell with a diagnosis of CHRONIC LBP. Date of Evaluation: 01/06/23 Physical Therapist: Alison Garcia PT, Cert MDT Visit Plan Frequency: 2-3x /Week Duration: 4-6 Weeks Plan: *CHECK AUTH NEXT VISIT: RECORD # OF VISITS APPROVED AND EXPIRATION DATE. CHECK CODES APPROVED WITH POC* START SLOW - AQUATIC THERAPY FOR PAIN RELEIF, POSTURE CORRECTION/STRENGTHENING, INSTRUCTION IN APPROPRIATE BODY MECHANICS AND ACTIVITY MODIFICATIONS. DLS STARTING WITH A NEUTRAL SPINE PROGRESSING ROM TOLERATED. MESSI LE ROM, STRETCHING AND STRENGTHENING. HEP INSTRUCTION. 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 VERY MINIMAL BENDING, LIFTING AND TWISTING. Disability: NO Present symptoms: PATIENT STATES SHE HAS CHRONIC MESSI LOW BACK PAIN. MESSI LE PAIN, NUMBNESS AND TINGLING. ALSO REPORTS MID AND UPPER BACK PAIN THAT IS NEW. PATIENT REPORTS SHE GETS A LOT OF MUSCLE SPASMS IN HER BACK, ARMS AND LEGS ( FOREVER ). Present since: SINCE 14 YEARS OLD. Pain Scale: WORSE 10/10, LEAST 2/10 Currently: 4/10 Is it getting better, worse or staying the same: GETTING WORSE Commenced as a result of: NO APPARENT REASON Symptoms at onset: LOW BACK PAIN Worse: LIFTING, SITTING, STANDING, BENDING, WALKING - EVERYTHING Better: MUSCLE RELAXERS, MEDICAL mamajuana. Disturbed sleep: SOMETIMES. I SLEEP IN MY CHAIR. I CAN'T SLEEP IN MY BED . Previous history/Previous treatment: STARTED WITH DX OF LUMBAR HNP AGE 14. PATIENT REPORTS SHE IS REALLY CAREFUL WHAT SHE DOES AND HOW SHE MOVES BECAUSE IF HER BACK FLARES UP SHE SHE CAN'T DOWN STAIRS (SLEEPS IN CHAIR UPSTAIRS) FOR A FEW DAYS AND HAS TO USE A W/C. NO BACK SURGERY. H/O TAQUERIA'S X APPROX 4 INCLUDING A N. BLOCK WITH LAST INJECTION BEING ABOUT ABOUT 3-4 YEARS AGO AND REFUSES TO HAVE MORE STATING THE TINGLING GOT WORSE DOWN BOTH LEGS AFTER THE LAST SHOT AND SHE CAN'T TOUCH OR PUT HEAT ON HER BACK SINCE THEN. H/O CHIROPRACTIC TOO BUT NOT FOR ABOUT 2-3 YEARS. H/O PT BUT NOT FOR 5+ YEARS. Treatment this episode: 9/22/23: continue m. relaxer. Prescribed voltaren and prednisone taper - patient reports she didn't get the cream because insurance didn't cover it. She reports the prednisone was for her upper back and it helped that and had no effect on her lower back. Coughing/sneezing/straining: Positive Gait: W/C NEEDED. USES ROLLATOR NEEDED AT HOME. CAN'T USE CANE BECAUSE INCREASED BACK PAIN. NORMALLY DOES NOT USE ANYTHING WHEN OUT OF HOUSE IN TERMS OF AD. Bowel or Bladder Dysfunction: NO Accidents: NO Unexplained weight loss: NO Imaging: SEPTEMBER 2022 LUMBAR X-RAY SHOWING MILD CURVATURE OF THE SPINE AND BONE SPURS AND HNP L2L3 IN [place] PER PATIENT REPORT. PMH/Recent major surgery (PER RAUDEL ALEMAN NOTE PROVIDED): abnormal tumor markers, annular tear of lumbar disc, anxiety, arthritis, asthma, bradycardia, carpal tunnel syndrome, degenerative disc disease, breast lump, hidradenitis, suppurativa, hiatal hernia, hypocalcemia, hypothyroidism, irregular heart beat, polycystic ovaries, radiculopathy, seasonal allergies, kidney stone, TMJ, appendectomy, cholecystectomy EGD, I&D, partial hysterectomy, thyroidectomy Objective Objective: Sitting/Standing Posture: POOR. FH. RSH'S. DECREASED LUMBAR LORDOSIS BUT NO RELAVANT LATERAL SHIFT. ABLE TO PARTIALLY CORRECT PARTIALLY CORRECT POSTURE BUT NOT MAINTAIN AND C/O INCREASED PAIN. MESSI SHLD LEVELS AND ILIAC CRESTS ARE GROSSLY SYMMETRICAL AND THERE IS NO OBVIOUS SCOLIOSIS. Other Observations: SLOW INDEP ANTALGIC GAIT INTO PT WITHOUT ANY AD'S OR LOB. MILD INCREASED TRUNK FLEXION AND DECREASED TRUNK ROTATION AND ARM SWING. ABLE TO TRANSFER INDEP'LY SIT TO STAND WITH HANDS ON THIGHS. Sensory deficit: DECREASED LLE LIGHT TOUCH SENSATION THROUGH OUT REPORTED WITH TESTING COMPARED TO THE RIGHT LE. ROM deficit: TIGHT MESSI LE HIP FLEXORS, HS'S AND GASTROC SOLEUS COMPLEX'S. ALONG WITH MESSI HIP ROTATORS, AB AND ADDUCTORS. Motor deficit: R HIP 3+/4, KNEE 4-/5, ANKLE 4/5. L HIP 4-/5, KNEE 4/5, ANKLE 5/5. Reflexes: 2/3 MESSI LE'S EXCEPT UNABLE TO ELICIT R ACHILLES Dural Signs: POSITIVE MESSI LE'S R>L Lumbar mvmt loss: flex - LESLIE ext - LESLIE R SG - MOD L SG - MOD PATIENT C/O INCREASED PAIN IN LOW BACK WITH LUMBAR ROM TESTING ALL PLANES BUT NO EFFECT ON LE SX'S. Core strength: POOR Palpation: PATIENT REFUSED. Balance/Special Test Scores Oswestry Low Back Score: 21 Goals Goal 1:: DECREASE C/O LOW BACK AND MESSI LE SX'S. Goal Time Frame: 4-6 Weeks Goal 2:: IMPROVE SITTING, STANDING, WALKING, SLEEP, LIFTING, AND ADL FUNCTION. Goal Time Frame: 4-6 Weeks Goal 3:: INSTRUCT IN PROPHYLAXIS Goal Time Frame: 4-6 Weeks Anticipated Interventions Patient/Client Instruction: Educate patient on: Condition, Plan of Care and Risk Factors For the Purpose of:: To improve self management Therapeutic Exercise to Include: Strength training, Body mechanics, Postural training, Flexibilty training, Gait and locomotor training, Neuromotor development, In an aquatic setting and Dynamic Lumbar Stabilization For the Purpose of:: To decrease pain, To increase ROM, To improve muscle performance and motor function, To increase tolerance to activity/condition/position, To improve ability of physical actions for home/community/work/leisure and To improve gait and locomotor functions Text: Thank you for the opportunity to evaluate your patient. For Medicare and Medicare HMO plans, please review the plan of care and approve it. It will need to be FAXED BACK to us at [phone] for Medicare purposes. For Medicare only, by signing this I certify the plan of care. Please let me know if there are questions or concerns regarding this plan of care. Physician Signature: Date:
== END 2023-01-06 19:00 | disposition home or self-care (01) ==
LOC: PT 07:53
PROVIDERS: PCP Internal Medicine; Referring Provider Nurse Practitioner Family; Visit Provider Nurse Practitioner Family
DX: M54.50 Low back pain, unspecified (principal); G89.29 Other chronic pain
CPT/HCPCS: 97162

== ENCOUNTER → 2023-01-25 | Outpatient (CLI) | payer MEDICAID, SELFPAY | END | disposition home or self-care (01) | PROVIDERS: PCP Internal Medicine; Visit Provider Physician Assistant | DX: R30.0 Dysuria (principal) | CPT/HCPCS: 87086 ==

== ENCOUNTER → 2023-02-02 | Outpatient (CLI) | payer MEDICAID, SELFPAY ==
--- NOTE | 2023-02-02 12:17 | US_ITS ---
STUDY: RENAL ULTRASOUND - COMPLETE REASON FOR EXAM: Female, 37 years old. Flank pain TECHNIQUE: Ultrasound evaluation of the kidneys was performed with real-time and static workman-scale imaging. COMPARISON: None. FINDINGS: RIGHT KIDNEY: Normal location of the right kidney, which is normal in size. The right kidney measures 10.8 x 5.1 x 4.7 cm. There is a normal cortex of the right kidney. The renal cortex measures 1.1 cm. There is a simple 2.1 cm cyst. There is a nonobstructing 7 mm stone. There is no right hydronephrosis. DISTAL RIGHT URETER: There is non-visualization of the distal right ureter. There is no demonstrated right ureterovesical junction calculus. There is a visualized right ureteral jet. LEFT KIDNEY: Normal location of the left kidney, which is normal in size. The left kidney measures 10.5 x 4.5 x 4.9 cm. There is a normal cortex of the left kidney. The renal cortex measures 1.5 cm. There is no left renal mass or cyst. There are no left renal calculi. There is no left hydronephrosis. DISTAL LEFT URETER: There is non-visualization of the distal left ureter. There is no demonstrated left ureterovesical junction calculus. There is a visualized left ureteral jet. AORTA: There is no elongation or tortuosity of the abdominal aorta. I.V.C.: The IVC is patent. BLADDER: The bladder is sonographically normal US/Kidney and Bladder IMPRESSION: No suspicious sonographic findings, simple right renal cyst, nonobstructing right nephrolithiasis, no specific follow-up needed. Electronically Signed: Len Sheppard MD at 15:02 EDT ,
== END | disposition home or self-care (01) ==
PROVIDERS: PCP Internal Medicine; Referring Provider Urology; Visit Provider Urology
DX: N20.0 Calculus of kidney (principal)
CPT/HCPCS: 76770

== ENCOUNTER → 2023-02-03 | Outpatient (CLI) | payer MEDICAID, SELFPAY ==
--- NOTE | 2023-02-03 09:57 | CT_ITS ---
STUDY: CT ABDOMEN AND PELVIS WITHOUT CONTRAST REASON FOR EXAM: Female, 37 years old. KIDNEY STONES. Right-sided abdominal pain. RADIATION DOSAGE (If Supplied By Facility): CTDIvol = ( 8.46 ) mGy, DLP = ( 431.08 ) mGycm TECHNIQUE: Transaxial images were obtained from the dome of the diaphragm to the symphysis pubis without oral contrast, and without intravenous contrast. Sagittal and coronal images were reconstructed. Individualized dose optimization techniques were used for this CT. COMPARISON: Comparison is made with prior study of June 24, 2022. FINDINGS: The visualized lung bases are unremarkable. The visualized portions of the heart are within normal limits. Normal liver. The patient is status post cholecystectomy. Normal spleen. Normal pancreas. Normal bilateral adrenal glands. Normal right kidney. Normal left kidney. Normal visualized stomach. Normal small intestine. Normal colon. There are surgical clips in the region of the appendix consistent with a prior appendectomy. Normal abdominal aorta. Normal inferior vena cava. Normal retroperitoneum. Normal urinary bladder. There is absence of the uterus consistent with a prior hysterectomy. There is a 6.8 cm x 3.7 cm complex cystic structure in the left adnexa with a fluid fluid level. This most likely represents an hemorrhagic cyst. Correlation with ultrasound is recommended. Small amount of free fluid is seen in the pelvis. Normal abdominal wall. Normal osseous structures. CT/Abdomen/Pelvis without Cont IMPRESSION: Findings suggestive of a 6.8 cm x 3.7 cm hemorrhagic cyst in the left adnexa. Small amount of free fluid in the cul-de-sac. Correlation with ultrasound is recommended if clinically indicated. The patient is status post cholecystectomy, hysterectomy and appendectomy. Electronically Signed: Dimitris Stewart MD at 11:02 EDT ,
== END | disposition home or self-care (01) ==
PROVIDERS: PCP Nurse Practitioner Family; Referring Provider Urology; Visit Provider Urology
DX: N20.0 Calculus of kidney (principal)
CPT/HCPCS: 74176

== ENCOUNTER → 2023-02-10 | Outpatient (CLI) | payer MEDICAID, SELFPAY | END | disposition home or self-care (01) | LOC: LABSPEC 14:53 | PROVIDERS: PCP Nurse Practitioner Family; Visit Provider Nurse Practitioner Family | DX: R19.7 Diarrhea, unspecified (principal) | CPT/HCPCS: 87493; 83630; 87506 ==

== ENCOUNTER 2023-03-01 13:49 | Day surgery (SDC) | payer MEDICAID, SELFPAY ==
[2023-03-01 14:04] VITALS: BP 118/59; PULSE 78; RESP 16; TEMP 36.8; O2SAT 100; BMI 25.0
[2023-03-01] MEDS: Lactated Ringers 1,000 ML 15 ML IV (14:19)
--- NOTE | 2023-03-01 14:22 | HP.PCM_ITS ---
History and Physical Date of Admission: 03/01/23 37 F who presents to the office today for PMH DMII? 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 H.Pylori negative. ? CT abd/pel 04.06.21 for umbilical hernia normal liver; distal colonic diverticulosis. ? Biochemical AST H43, total bilirubin H1.40 *BGI established 02.04.22 abdominal pain and watery diarrhea with mucus occurring multiple times a day with urgency causing incontinence. ? Biochemical hepatitis, ANOOP, ANCA, AFP, AMA, ASM, ceruloplasmin, GAME, Vit D 1,25, celiac, TSH, T3, Vit D25, CRP, LDH, ammonia, ferritin, CMP, ESR, CBCwithout pertinent abnormality. ASTH38/ALT H81, A1c H10.1 Stool calprotectin, elastase, ova/parasite, giardia, C.Difficile, enteric pathogens WNL? Lactoferrin +, fecal fats elevated ? GET 11..22 WNL with time at 25.39 minutes (12-56). OV 04.30.22 doing better than previously. Postprandial lower abdominal pain and loose stools continue without food trigger. Started cinnamon pills three months prior and feels these have been helpful with this and glucose control. Start creon ? EGD and colonoscopy 08.31.22 EGD irregular Zline; gastritis; duodenitis. No path changes ? Colonoscopy contested colonic mucosa and TI.? No path changes OV 09.03.22 include Zenpep with snacks, Start colestipol ? US and elastography 06.25.22/6.16.23 hepatic measurement 18cm, stiffness 10.1kPa. ? 3.14.23 FIB 4 1.39 OV 8.28.23 if he eats a lot of food he gets and upper esophageal fullness requiring liquids; pays attention to bite sizes and chew well. He continues with Zenpep; colestipol has stopped and loose stools are under control Endocrinology established with A1c 11; continue metformin, glimepiride, farxiga, increase 50/50 to 50units TID, start Mounjaro. Has been changing his diet. ROS Const Constitutional: No body ache, chills, excessive sweating, fatigue, fever(s), frequent falls, headache(s), snoring, weakness, sleep problems or change in appetite Eyes Eyes: No blurry vision, change in vision, bulging eyes, floaters, eye pain or Light sensitivity ENT ENT: No abnormal hearing, ear or mastoid pain, tinnitus, balance problems, nosebleed/epistaxis, nasal congestion, headache(s), neck pain or sore throat Resp Respiratory: No cough, excessive phlegm production, pain on inspiration, shortness of breath, snoring or wheezing Cardio Cardiology: No chest pain at rest, chest pain with exertion, excessive sweating, shortness of breath, dyspnea on exertion, lightheadedness, orthopnea or palpitations Gastro GI: No abdominal pain, change in bowel habits, constipation, cramping, diarrhea, Vomiting blood/hematemesis or vomiting Genitourinary-Female: No burning urination, painful urination, urinary incontinence, blood in urine, suprapubic fullness or side pain Musc Musculoskeletal: Positive for back pain (mid and lower back pain); No abnormal gait, joint pain, limited range of motion, neck pain, numbness or tingling Skin Skin: No dry skin, redness, lesions, itchy eyes, rash or wounds Breast Breast: No change in breast shape, breast lump, breast pain, breast skin changes, breast swelling or nipple discharge Neuro Neurology: No abnormal gait, abnormal hearing, weakness, frequent falls, headache(s), numbness or tingling Psych Psychiatric: No anxiety, No change in appetite, No depression and No Thoughts of harming yourself/Others Endo Endocrine: No excessive sweating, fatigue, flushing, heat intolerance, increased thirst/drinking or increased hunger Aller/Imm Allergy/Immunologic: No itchy eyes, seasonal allergy symptoms, hives or wheezing Alec/Lymp Hematologic/Lymphatic: No easy bleeding, easy bruising or enlarged lymph nodes Exam Const General: cooperative, comfortable and no acute distress Orientation: alert, awake and oriented x3 HENMT Head: normal to inspection, normocephalic and atraumatic Ears: hearing grossly normal bilaterally Eyes General: appearance normal, both eyes and all related structures Neck Neck: normal visual inspection, full ROM, no lymphadenopathy and supple Neck mass: No Thyroid: thyroid normal Resp Effort & Inspection: normal respiratory effort and able to speak in complete sentences Auscultation: Bilateral: Clear to Auscultation Cardio Rate: regular rate Rhythm: regular rhythm Heart Sounds: S1 normal and S2 normal GI Palpation: soft (No palpable organomegaly) Neuro General: patient alert, patient awake, patient oriented x3, moves all extremities and CN's II-XI intact bilaterally Extrem General: no clubbing, cyanosis or edema Psych Appearance: grossly normal Mental Status: mental status grossly normal Mood: congruent mood Affect: normal affect Quality Reporting Tobacco Screening ([facility] 138) Smoking Status: Current every day smoker Assessment and Plan Assessment and Plan (1) Chronic constipation: Status: Chronic Plan: Chronic idiopathic constipation in the setting of IBS. She is taking dicyclomine scheduled which I think is helping her abdominal pain. However it is contributing to her constipation because of her lack of appetite and fear of eating secondary to crampy abdominal pain. I will have her only take the dicyclomine prior to her eating to hopefully help her symptoms and help her bowels improve. Previously she was IBS with diarrhea and this is now switched as she has lost weight and stopped eating as much. (2) Fatty liver: Status: Chronic Plan: She had a FibroScan that it shows that her inflammation in her was 6.5 kPa which is equivalent to an METAVIR 1-2. Since then she has lost a significant amount of weight. We will need to repeat the FibroScan in approximately 8 months. (3) Pancreatitis, chronic: Status: Chronic Plan: I do not suspect that she has chronic pancreatitis. She has had episodes of acute pancreatitis but no evidence of chronic pancreatitis on imaging, by history or biochemical or stool analysis. (4) Gastric intestinal metaplasia: Status: Chronic Comment: Submucosal mass on EGD 6.28.22 Plan: We will repeat her upper endoscopy in the future. Her last upper endoscopy did not show any gastric intestinal metaplasia in the duodenal mass that was biopsied previously. There is also no signs or symptoms of any activity in the gastrointestinal metaplasia associated duodenal lesion. (5) Abdominal pain: Status: Inactive Plan: I think her abdominal pain is mild. Pain associated with pelvic floor dysfunction or pelvic dyssynergia. We will refer her to a pelvic exchange floor manager. (6) Unintentional weight loss: Status: Inactive Plan: Her weight loss has been intentional being that she does not eat because she is scared to have abdominal pain. Hopefully as we transition her to dental prior to meals and have her see a pelvic exchange floor manager will be able to help with a lot of her issues regarding pain with urination, pain with defecation and pelvic pain on a general basis. (7) Tenesmus (rectal): Status: Inactive (8) Bloating: Status: Inactive (9) Diverticulosis: Status: Inactive Medications: I have examined the patient and the H&P has been reviewed. There are no clinical changes since date of exam.
--- NOTE | 2023-03-01 15:00 | IMM_PTH ---
PATIENT: AMY VILLEDA LOC: EN U#:[id number] AGE/SX: 37/F ROOM: RE03/01/[address]: Dr. Jules Rene DO : 1985 BED: DIS: 03/01/2023 SPEC #: [id number] RECD: 03/02/23 12:00 STATUS: NICOLE RIAN #: [id number] MERLE: 03/01/23 15:[address]: Jules Rene DEPT: IMMUNOHISTOCHEMISTRY RECD BY: Chelle Dias ENTERED: 03/02/23 12:01 SP TYPE: IMMUNO OTHR DR: Charli Austin, ABSEILING INSTRUCTOR-C Tissues: C - Stomach, NOS Procedures: H Pylori (initial) PHYSICIAN & INSTITUTION [place] [id number] SPECIMEN INFORMATION: Tissue Source: C - Gastric body Clinical Info: Chronic constipation, fatty liver, pancreatitis, GI metaplasia Specimen Number: [id number] CPT code: 09969 METHODOLOGY: Deparaffinized sections of prefer/formalin-fixed tissue or PAP/DQ stained slides are incubated with monoclonal/polyclonal antibodies/oligonucleotide probes. Localization is made via biotin free immunoperoxidase method. Appropriate controls are performed and reacted as expected. Results on target cell population are indicated in the following table: RESULTS: ANTIBODY / CLONE RESULT Block C H Pylori (polyclonal) negative These tests were developed and their performance characteristics determined by [facility]. They may not have been cleared or approved by the U.S. Food and Drug Administration. The FDA has determined that such clearance or approval is not necessary. The above immunohistochemical/dualISH markers are ordered and reviewed by the Pathologist. INTERPRETATION: C. Gastric body, biopsy: Negative for Helicobacter pylori organisms. AM:almaz 03/04/2023
--- NOTE | 2023-03-01 15:00 | EGD_PTH ---
PATIENT: AMY VILLEDA LOC: EN U#:[id number] AGE/SX: 37/F ROOM: RE03/01/[address]: Dr. Jules Rene DO : 1985 BED: DIS: 03/01/2023 SPEC #: [id number] RECD: 03/02/23 09:22 STATUS: NICOLE RIAN #: [id number] MERLE: 03/01/23 15:[address]: Jules Rene DEPT: SURGICAL PATHOLOGY RECD BY: Christen Shah ENTERED: 03/02/23 09:23 SP TYPE: EGD BIOPSY ANASTASIA DR: Charli Austin, OYSTER UNLOADER-C Tissues: A - Duodenum, NOS B - Duodenum, NOS C - Gastric mucous membrane Procedures: Surgery Specimen Level IV HEADER OPERATION: EGD with biopsy PRE-OP DIAGNOSIS: Chronic constipation, fatty liver, pancreatitis, gastric intestinal metaplasia TISSUE SUBMITTED: A - Duodenal biopsy, B - Duodenal bulb biopsy, C - Gastric body biopsy MICROSCOPIC DIAGNOSIS A. Duodenum, biopsy: Consistent with Farooq's gland hyperplasia. B. Duodenal bulb, biopsy: No pathologic change. C. Gastric body, biopsy: Chronic gastritis, mild See comment. AM:almaz 03/04/2023 COMMENT C. The results of immunohistochemistry for Helicobacter pylori will be reported separately ([id number]). MICROSCOPIC DESCRIPTION Slides are reviewed. GROSS DESCRIPTION A - Received in fixative is one container labeled with the patient's name and designated duodenum biopsy. The specimen consists of multiple irregular fragments of light whyte soft tissue that in aggregate measure 0.7 x 0.5 x 0.1 cm. The specimen is totally submitted in one cassette. B - Received in fixative is one container labeled with the patient's name and designated duodenal bulb. The specimen consists of multiple irregular fragments of light whyte soft tissue that in aggregate measure 1.0 x 0.5 x 0.1 cm. The specimen is totally submitted in one cassette. C - Received in fixative is one container labeled with the patient's name and designated gastric body. The specimen consists of two irregular fragments of light whyte soft tissue that in aggregate measure 0.7 x 0.5 x 0.1 cm. The specimen is totally submitted in one cassette. / AM:almaz 03/02/2023 TC:3 CPT: 46673 x3
[2023-03-01 15:20] VITALS: BP 118/59; BP 87/74; PULSE 78; RESP 16; TEMP 36.3; O2SAT 100
[2023-03-01 15:24] VITALS: BP 118/59; BP 97/64; PULSE 73; RESP 16; O2SAT 100
[2023-03-01 15:30] VITALS: BP 118/59; BP 97/60; PULSE 70; RESP 16; TEMP 36.3; O2SAT 99
--- NOTE | 2023-03-01 15:30 | OP.CCLET_ITS ---
03/01/2023 Mika Valerio NP [address] [place] [address] [place] [address] Re : Upper GI endoscopy procedure for Isabel Sparks Dear Mr. Valerio This procedure was performed on Wednesday, March 01, 2023. My impressions and recommendations are as follows: Impressions : - Normal esophagus. - Bilious gastric fluid. Fluid aspiration performed. - Erythematous mucosa in the gastric body. Biopsied. - Chronic duodenitis. Biopsied. Recommendations : - Discharge patient to home. - Resume previous diet. - Use sucralfate tablets 1 gram PO QID. - Continue present medications. My findings are described in the full procedure note, which is enclosed. If I can be of further assistance, please feel free to contact me at . Sincerely, Jules Rene, 03/01/2023 3:29:52 PM This report has been signed electronically.
--- NOTE | 2023-03-01 15:30 | OP.EGD_ITS ---
Patient Name: Isabel Sparks Procedure Date: 03/01/2023 2:55 PM Date of : 1985 Age: 37 Procedure: Upper GI endoscopy Indications: Epigastric abdominal pain Providers: Jules Rene DO Medicines: Monitored Anesthesia Care Patient Profile: This is a 37 year old female. Refer to note in patient chart for documentation of history and physical. Patient has symptoms of chronic abdominal cramping and acute epigastric abdominal pain. Complications: No immediate complications. Procedure: Pre-Anesthesia Assessment: - Prior to the procedure, a History and Physical was performed, and patient medications and allergies were reviewed. The patient is competent. The risks and benefits of the procedure and the sedation options and risks were discussed with the patient. All questions were answered and informed consent was obtained. Patient identification and proposed procedure were verified by the physician in the pre-procedure area. Mental Status Examination: alert and oriented. Airway Examination: normal oropharyngeal airway and neck mobility. Respiratory Examination: clear to auscultation. CV Examination: normal. Prophylactic Antibiotics: The patient does not require prophylactic antibiotics. Prior Anticoagulants: The patient has taken no anticoagulant or antiplatelet agents. ASA Grade Assessment: II - A patient with mild systemic disease. After reviewing the risks and benefits, the patient was deemed in satisfactory condition to undergo the procedure. The anesthesia plan was to use monitored anesthesia care (MAC). Immediately prior to administration of medications, the patient was re-assessed for adequacy to receive sedatives. The heart rate, respiratory rate, oxygen saturations, blood pressure, adequacy of pulmonary ventilation, and response to care were monitored throughout the procedure. The physical status of the patient was re-assessed after the procedure. After obtaining informed consent, the endoscope was passed under direct vision. Throughout the procedure, the patient's blood pressure, pulse, and oxygen saturations were monitored continuously. The gastroscope was introduced through the mouth, and advanced to the second part of duodenum. The upper GI endoscopy was accomplished without difficulty. The patient tolerated the procedure well. Scope In: 3:07:48 PM Scope Out: 3:14:36 PM Total Procedure Duration Time 0 hours 6 minutes 48 seconds Findings: The examined esophagus was normal. Bilious fluid was found in the stomach. Fluid aspiration was performed. Verification of patient identification for the specimen was done. Estimated blood loss was minimal. Patchy mildly erythematous mucosa without bleeding was found in the gastric body. Biopsies were taken with a cold forceps for histology. Verification of patient identification for the specimen was done. Estimated blood loss was minimal. Biopsies were taken with a cold forceps for Helicobacter pylori testing. Verification of patient identification for the specimen was done. Estimated blood loss was minimal. Localized moderate inflammation characterized by congestion (edema) was found in the duodenal bulb. Biopsies were taken with a cold forceps for histology. Verification of patient identification for the specimen was done. Estimated blood loss was minimal. Impression: - Normal esophagus. - Bilious gastric fluid. Fluid aspiration performed. - Erythematous mucosa in the gastric body. Biopsied. - Chronic duodenitis. Biopsied. Recommendation: - Discharge patient to home. - Resume previous diet. - Use sucralfate tablets 1 gram PO QID. - Continue present medications. Procedure Code(s): --- Professional --- 77272, Esophagogastroduodenoscopy, flexible, transoral; with biopsy, single or multiple CPT copyright 2021 [employer]. All rights reserved. The codes documented in this report are preliminary and upon jewel supervisor review may be revised to meet current compliance requirements. Jules Rene DO 03/01/2023 3:29:52 PM This report has been signed electronically. Number of Addenda: 0 Note Initiated On: 03/01/2023 2:55 PM
[2023-03-01 15:46] VITALS: BP 118/59
== END 2023-03-01 15:53 | disposition home or self-care (01) ==
LOC: EN 13:50 → AC 13:51
PROVIDERS: PCP Nurse Practitioner Family; Referring Provider Nurse Practitioner Family; Visit Provider Internal Medicine Gastroenterology
PROC: 0DJ08ZZ Inspection of Upper Intestinal Tract, Via Natural or Artificial Opening Endoscopic (ICD-10-PCS; CPT 43235; principal; 2023-03-01 14:55)
DX: K29.50 Unspecified chronic gastritis without bleeding (principal); K86.1 Other chronic pancreatitis; K31.89 Other diseases of stomach and duodenum; K59.09 Other constipation; K29.80 Duodenitis without bleeding; F17.200 Nicotine dependence, unspecified, uncomplicated; K76.0 Fatty (change of) liver, not elsewhere classified; F41.9 Anxiety disorder, unspecified; F32.A Depression, unspecified; E03.9 Hypothyroidism, unspecified; E53.8 Deficiency of other specified B group vitamins; Z79.899 Other long term (current) drug therapy; Z80.0 Family history of malignant neoplasm of digestive organs; Z86.16 Personal history of COVID-19
CPT/HCPCS: 43239; 88305; 88342; J7120; J2405

== ENCOUNTER 2023-03-15 17:29 | Emergency (ER) | payer MEDICAID, SELFPAY ==
[2023-03-15 17:29] VITALS: BP 124/87; PULSE 90; RESP 14; TEMP 36.2; O2SAT 100; BMI 25.2
[2023-03-15 17:51] LABS: Bacteria 0 SEEN /hpf (None Seen); Mucous, Urine 0 SEEN /hpf (<or=2+); Red Blood Cells-Urine 0 SEEN /hpf (0-5); White Blood Cells 0 SEEN /hpf (0-5)
[2023-03-15 17:56] LABS: Color, Urine Yellow (Yellow); Glucose, Dipstick Normal (Normal); Ketone-Dipstick Negative (Negative); Leukocyte Esterase-Dipstick Negative /ul (Negative); Nitrite-Dipstick Negative (Negative); Occult Blood-Urine 25 /ul (Negative); Protein-Dipstick 15 mg/dl (Negative); Urine Bilirubin Dipstick Negative (Negative); Urine Clarity Clear (Clear); Urine Urobilinogen Normal (Normal)
[2023-03-15 18:00] LABS: Absolute Lymphocyte Count 3.79 X10^3/uL (0.83-4.51); Basophil# 0.09 X10^3/uL; Eosinophil# 0.17 X10^3/uL; Hematocrit 41.9 % (37-47); Hemoglobin 14.2 g/dL (12.0-15.0); Lymphocyte # 3.79 X10^3/ul (0.83-4.51); Lymphocyte % 44.1 % (19-41); Mean Corp Hgb Conc 33.9 g/dL (32-36); Mean Corpuscular Volume 88.6 fL (81-99); Mean Platelet Vol. 11.1 fl (6.2-12.0); Monocyte# 0.54 X10^3/uL; Monocyte% 6.3 % (0-10); NRBC Flagged by Analyzer 0 % (0-5); Neutrophil # 3.99 X10^3/uL (2.7-7.7); Neutrophil % 46.5 % (47-70); Platelet Count 328 K/mm3 (150-450); RBC Distribution Width CV 11.9 % (11.6-14.6); RBC Distribution Width SD 38.9 fl (35.1-43.9); Red Blood Count 4.73 M/mm3 (4.2-5.4); White Blood Count 8.6 K/mm3 (4.4-11.0)
[2023-03-15 18:05] LABS: Squamous Epithelial Cells - UA 0-5 SEEN /hpf (5-10)
[2023-03-15 18:08] LABS: Anion Gap 4 (5-15); BUN 17 mg/dL (7-18); BUN/Creat Ratio 18.2 RATIO (10-20); Calcium,Total 8.3 mg/dL (8.5-10.1); Chloride 105 mmol/L (98-107); Creatinine, Serum 0.94 mg/dL (0.55-1.02); EST Glomerular Filtration Rate 71 mL/min (>60); Est Glom Filt Rate - Afr Amer 86 mL/min (>60); Estimated Creatinine Clearance 83.97 ml/min; Glucose 122 mg/dL (74-106); Potassium 3.4 mmol/L (3.5-5.1); Sodium Level 140 mmol/L (136-145)
--- NOTE | 2023-03-15 18:33 | CT_ITS ---
STUDY: CT ABDOMEN AND PELVIS WITHOUT CONTRAST REASON FOR EXAM: Female, 37 years old. Right flank pain RADIATION DOSAGE (If Supplied By Facility): CTDIvol = ( 7.52 ) mGy, DLP = ( 392.84 ) mGycm TECHNIQUE: Transaxial images were obtained from the dome of the diaphragm to the symphysis pubis without oral contrast, and without intravenous contrast. Sagittal and coronal images were reconstructed. Individualized dose optimization techniques were used for this CT. COMPARISON: February 03, 2023 FINDINGS: The visualized lung bases are unremarkable. The visualized portions of the heart are within normal limits. Normal liver. No visualization of the gallbladder. No significant dilatation of the extrahepatic biliary system. Normal spleen. Normal pancreas. Normal bilateral adrenal glands. Normal right kidney. Normal left kidney. Normal visualized stomach. Normal small intestine. Normal colon. The appendix is not visualized. Normal abdominal aorta. Normal inferior vena cava. Normal retroperitoneum. Normal urinary bladder. Small fatty umbilical hernia. Normal osseous structures. CT/Abdomen/Pelvis without Cont IMPRESSION: Small fatty umbilical hernia. Electronically Signed: Brian Cordero DO at 19:07 EST Reading Location ID and State: [facility] / [place] Tel [phone], Service support ,
[2023-03-15] MEDS: Ketorolac 15 MG/ML Vial IV (18:48)
[2023-03-15 19:29] VITALS: PULSE 73; RESP 12; O2SAT 96
--- NOTE | 2023-03-15 21:49 | ED.VIS.GI ---
HPI HPI - GI History of Present Illness Chief Complaint: Flank Pain Narrative Narrative: 37-year-old female presenting with chronic right flank pain. She has been seen by Dr. Rene for this and Dr. Sorensen. She tells me Dr. Sorensen did an ultrasound of the right upper quadrant about a month ago and saw a cyst. She follows with a CT scan and it was not present. Patient does state the pain is sharp and sometimes radiates to the right inguinal area. Not related to food. No fevers or chills. Sometimes associated nausea. No diarrhea or constipation. No vaginal complaints but feels as if she might be having some dysuria and her urine seems a little off. PFSH [facility] Medical History Abdominal pain Abnormal tumor markers Abnormal urinalysis Abscess of left axilla Acute sinusitis, unspecified Annular tear of lumbar disc Anterior neck pain Anxiety Arthritis Asthma Back pain Bloating Bradycardia Cardiology follow-up encounter Carpal tunnel syndrome Chest pain Chronic back pain Chronic constipation COVID-19 (03/17/21) Degenerative disc disease at L5-S1 level Depression Diarrhea Diverticulosis Duodenal mass Elevated lipase Epigastric pain Fatty liver Generalized anxiety disorder with panic attacks H/O breast lump Hepatomegaly Hidradenitis suppurativa History of COVID-19 History of hiatal hernia History of Holter monitoring History of pain when walking History of stress test Hx of cystic acne Hypocalcemia Hypocalcemia syndrome Hypoglycemia Hypokalemia Hypothyroidism Injury of head and neck Intermittent palpitations Irregular heart beat Kidney stones Leg cramps Leg cramps Low calcium levels Low vitamin B12 level Normal stress echocardiogram Other acute postprocedural pain Paresthesia Pelvic pain Polycystic ovaries Post-surgical hypoparathyroidism Postoperative hypothyroidism Preventative health care PTSD (post-traumatic stress disorder) Radiculopathy Renal colic on right side Right flank pain Right groin pain Right lower quadrant pain Right ovarian cyst Right renal stone Seasonal allergies Shortness of breath on exertion Shortness of breath on exertion Smoker Suprapubic discomfort Syncope Tenesmus (rectal) Tinea pedis of both feet TMJ (temporomandibular joint syndrome) Tobacco use Unintentional weight loss Upper respiratory infection Ureteral calculus, right Urgency of urination Urinary frequency Urinary tract infection Urinary tract infection with hematuria Vertigo Wears dentures Home Medications cholecalciferol (vitamin D3) 125 mcg (5,000 unit) capsule 125 mcg PO DAILY 07/01/22 [History Last Taken Unknown] vitamin B12 1,000 mcg-folic acid 400 mcg sublingual tablet 1 tab sublingual QODAY 07/29/22 [History Last Taken Unknown] dicyclomine 20 mg tablet 20 mg PO TID abdominal pain 11/03/22 [History Last Taken Unknown] tizanidine 4 mg tablet 4 mg PO BID PRN PAIN 12/03/22 [History Last Taken 12/08/22] levocetirizine 5 mg tablet See Rx Instructions .Route .COMPLEX #90 TABLETS 12/14/22 [Rx Last Taken Unknown] calcitriol 0.5 mcg capsule 1.5 mcg (3 x 0.5 mcg) PO QHS calcium #90 caps 12/21/22 [Rx Last Taken Unknown] levothyroxine 175 mcg tablet 175 mcg PO DAILY #90 tabs 12/21/22 [Rx Last Taken Unknown] pantoprazole 20 mg tablet,delayed release 40 mg PO DAILY 02/23/23 [History Last Taken Unknown] sucralfate 1 gram tablet 1 g PO Q6H 8 weeks #224 tabs 03/01/23 [Rx Last Taken Unknown] duloxetine 30 mg capsule,delayed release 30 mg PO DAILY #30 caps 03/11/23 [Rx Last Taken Unknown] meloxicam 15 mg tablet 15 mg PO BID PRN pain (scale score 7-10) #30 tabs 03/11/23 [Rx Last Taken Unknown] Allergy/AdvReac Type Severity Reaction Status Date / Time codeine Allergy Mild Itching Verified 03/15/23 17:31 fluoxetine [From Prozac] AdvReac EDWIN Verified 03/15/23 17:31 naproxen [From Naprosyn] AdvReac NOSEBLEED Verified 03/15/23 17:31 Family History Father Alcoholism Mother Anemia Depression Hypertension Hyperlipemia Diabetes Grandfather Diabetes Myocardial infarction Grandmother Breast cancer Diabetes Surgical History H/O thyroidectomy History of appendectomy History of bilateral salpingo-oophorectomy History of cholecystectomy History of esophagogastroduodenoscopy (EGD) History of esophagogastroduodenoscopy (EGD) History of incision and drainage History of partial hysterectomy History of thyroidectomy History of total hysterectomy S/P appendectomy S/P hysterectomy Social History household members: none Smoking Status: Current every day smoker tobacco type: cigarettes Tobacco: How many years used: 20 alcohol intake: never substance use type: does not use what type of physical activity do you participate in: none ROS ROS ED Constitutional Constitutional ED: Denies chills, fever(s) or sweats Eyes Eyes: Denies blurry vision or change in vision ENT ENT ED: Denies ear pain or sore throat Cardiovascular Cardiovascular: Denies chest pain, palpitations or racing heartbeat Respiratory/Chest Respiratory/Chest: Denies cough, dyspnea or sputum Gastrointestinal Gastrointestinal: Reports abdominal pain and nausea; Denies constipation, diarrhea or vomiting Genitourinary Genitourinary ED: Reports dysuria; Denies hematuria or urinary frequency Musculoskeletal Musculoskeletal: Denies arthralgias, myalgias or neck pain Integumentary Denies abscess, Abrasions or rash Neurologic Neurologic: Denies headache(s), paresthesias or weakness Psychiatric Psychiatric: Denies anxiety, depression, suicidal ideation or suicidal thoughts Endocrine Endocrinology: Denies polydipsia or polyuria EXAM Physical Exam Const Vital Signs: 03/15/23 17:29 03/15/23 19:29 Temperature 97.2 F L Temperature Source Temporal Pulse Rate 90 73 Respiratory Rate 14 12 Blood Pressure 124/87 H Blood Pressure Mean 99 Pulse Ox 100 96 Oxygen Delivery Method Room Air Room Air General Appearance ED: NAD; Negative for pallor HEENT Reports moist mucous membranes normocephalic Eyes PERRL and EOMs intact bilaterally Resp normal respiratory effort Cardio regular rate GI Palpation: tender RUQ Back/Spine no CVA tenderness Neuro CN's II-XII intact bilaterally Sensorium / Orientation: alert Psych mental status grossly normal and thought process normal Skin General Skin Exam: Negative for jaundice or pallor MDM MDM MDM Narrative Medical decision making narrative: Patient presenting with right flank pain. She has a history of UTI, pyelonephritis, kidney stones. Differential does include this. Patient does not have a gallbladder. Patient concerned she might have a kidney stone. Urinalysis negative for infection. There is some occult blood. CBC and BMP are unremarkable. Patient states she wanted to try Toradol and this did help somewhat with her pain. She did not want to have anything stronger. CT of the abdomen pelvis without contrast shows no acute findings. Patient will follow-up with urology as an outpatient. Impression: 1. Right flank pain 2. Dysuria Lab Data Labs: Laboratory Results - last 24 hr 03/15/23 17:45 WBC 8.6 RBC 4.73 Hgb 14.2 Hct 41.9 MCV 88.6 MCH 30.0 MCHC 33.9 RDW Std Deviation 38.9 RDW Coeff of Jenn 11.9 Plt Count 328 MPV 11.1 Immature Gran % (Auto) 0.100 Neut % (Auto) 46.5 L Lymph % (Auto) 44.1 H [place] % (Auto) 6.3 Eos % (Auto) 2.0 Baso % (Auto) 1.0 Absolute Neuts (auto) 4.0 Absolute Lymphs (auto) 3.79 Nucleated RBC % 0 Sodium 140 Potassium 3.4 L Chloride 105 Carbon Dioxide 31.0 Anion Gap 4 L BUN 17 Creatinine 0.94 Estim Creat Clear Calc 83.97 Est GFR (MDRD) Af Amer 86 Est GFR (MDRD) Non-Af 71 BUN/Creatinine Ratio 18.2 Glucose 122 H Calcium 8.3 L Urine Color Yellow Urine Clarity Clear Urine pH 5.0 Ur Specific [place] 1.030 Urine Protein 15 H Urine Glucose (UA) Normal Urine Ketones Negative Urine Occult Blood 25 H Urine Nitrite Negative Urine Bilirubin Negative Urine Urobilinogen Normal Ur Leukocyte Esterase Negative Urine RBC 0 SEEN Urine WBC 0 SEEN Ur Squamous Epith Cells 0-5 SEEN Urine Bacteria 0 SEEN Urine Mucus 0 SEEN Radiography Diagnostic Testing: Clinical Impression(s) from Imaging Studies Abdomen/Pelvis CT 03/15/23 18:33 IMPRESSION: Small fatty umbilical hernia. Electronically Signed: Brian Cordero DO at 19:07 EST Reading Location ID and State: [facility] / [place] Tel [phone], Service support , Discharge Plan Triage Chief Complaint: Flank Pain ED Provider: Hieu Santos Dx/Rx/DC Orders Instructions: ED Flank Pain, Uncertain Cause Prescriptions: No Action cholecalciferol (vitamin D3) 125 mcg (5,000 unit) capsule 125 mcg PO DAILY calcitriol 0.5 mcg capsule 1.5 mcg PO QHS Qty: 90 2RF levothyroxine 175 mcg tablet 175 mcg PO DAILY Qty: 90 3RF dicyclomine 20 mg tablet 20 mg PO TID duloxetine 30 mg capsule,delayed release(DR/EC) 30 mg PO DAILY Qty: 30 3RF meloxicam 15 mg tablet 15 mg PO BID PRN (Reason: pain (scale score 7-10)) Qty: 30 0RF vitamin [id number] acid 1,000-400 mcg Tablet, Sublingual 1 tab SUBLINGUAL QODAY tizanidine 4 mg tablet 4 mg PO BID PRN Rx Instructions: TAKE 1 TABLET BY MOUTH THREE TIMES DAILY NEEDED MUSCLE spasticity pantoprazole 20 mg tablet,delayed release (DR/EC) 40 mg PO DAILY sucralfate 1 gram tablet 1 g PO Q6H 56 Days Qty: 224 0RF levocetirizine 5 mg tablet See Rx Instructions .ROUTE .COMPLEX Qty: 90 1RF Dose Instruction: TAKE 1 TABLET BY MOUTH EVERY EVENING NEEDED FOR ALLERGY SYMPTOMS Rx Instructions: TAKE 1 TABLET BY MOUTH EVERY EVENING NEEDED FOR ALLERGY SYMPTOMS Primary Care Provider: Charli Austin NP Referrals: Charli Austin NP, [facility] [Primary Care Provider] - Disposition Disposition: Home, Self Care Discharge Date/Time: 03/15/23 20:54
== END 2023-03-15 20:54 | disposition home or self-care (01) ==
PROVIDERS: Emergency Provider Student in an Organized Health Care Education/Training Program; PCP Nurse Practitioner Family; Referring Provider Student in an Organized Health Care Education/Training Program; Visit Provider Student in an Organized Health Care Education/Training Program
DX: R10.9 Unspecified abdominal pain (principal); R30.0 Dysuria; F17.210 Nicotine dependence, cigarettes, uncomplicated; Z86.16 Personal history of COVID-19
CPT/HCPCS: 74176; 80048; 81001; 85025; 96374; 99283; A4216

== ENCOUNTER → 2023-06-01 | Outpatient (CLI) | payer MEDICAID, SELFPAY ==
--- OUTSIDE RECORDS SUMMARY | 2023-06-01 07:42 | XMS RPT_ITS | CCD ---
Author Name Unknown Address [address] [place] [address] Organization [facility] Care Team Providers Care Feeder Catcher Name Role Phone LEVI KENT MD Primary Care Physician (07 08) Levi Kent MD Primary Care Provider 1(07 08) Levi Kent MD Primary Care Provider 1(07 08) LIANNE BOWMAN Attending Unavailable VAMSI KENTEWONGBE B Primary Care Unavailable VAMSI KENTEWONGBE Holland Primary Care Unavailable SUSAN COLLIER Referring Unavailable ARMANDO KENTONGBE Holland Primary Care Unavailable SUSAN COLLIER Attending Unavailable [facility] - SEFERINO, AVIVA [facility] - SEFERINO, AVIVA Hill Primary Care U navailable [facility] - SEFERINO, AVIVA Hill Attending U navailable [facility] - AVIVA GENTILE Primary Care U navailable [facility] - HEALTH COMMUNICATIONS SPECIALIST, AVIVA Hill Attending U navailable REFERRING, NAYELY GLYNN Attending Unavailable LEVI KENT MD Primary Care Unavailab SANDRA Ramirez MD Attending Unavailable [facility] - HEALTH COMMUNICATIONS SPECIALIST, AVIVA Hill Primary Care U navailable Allergies Allergy Classification Reported Allergen(s) Allergy Type Date of Onset Reaction(s) Facility (9 sources) Codeine; Translations: [codeine] Drug Allergy 01-04-2005 GI Upset [facility] (4 sources) FLUoxetine; Translations: [fluoxetine] Drug Allergy [facility] (9 sources) Naproxen; Translations: [naproxen] Drug Allergy 01-04-2005 [facility] (5 sources) FLUoxetine; Translations: [FLUOXETINE HCL] Drug Allergy 01-06-2016 Intolerance [facility] Work Phone: Medications Current Medications Medication Drug Class(es) Dates Sig (Normalized) Sig (Original) calcitriol 0.0005 mg oral capsule (11 sources) Vitamin D3 Analog Start: 02-17-2023 calcitriol 0.5 mcg oral capsule Dose : 1.5 mcg = 3 cap(s), Oral, qDay, # 30 cap(s), 0 Refill(s) Start Date: 02/17/23 Status: Ordered Completed/Discontinued Medications Medication Drug Class(es) Dates Sig (Normalized) Sig (Original) Acetaminophen (4 sources) acetaminophen (T YLENOL ARTHRITIS ORAL) Take by mouth. 0 Active Problems Active Problems Problem Classification Problem Date Documented Da te Episodic/Chronic Abdominal pain (4 sources) Flank pain; Translations: [Right upper quadrant pain] 02-17-2023 Episodic Calculus of urinary tract (3 sources) Kidney stone 02-17-2023 Episodic Esophageal disorders (3 sources) Gastroesophageal reflux disease 02-17-2023 Chronic Genitourinary symptoms and ill-defined conditions (1 source) Urge incontinence of urine 05-10-2023 Chronic Mood disorders (4 sources) Recurrent major depressive episodes, moderate ; Translations: [Major depressive disorder, recurrent, moderate] Onset: 7 12-13-2006 Chronic Mycoses (1 source) Candidiasis 05-12-2023 Episodic Nonmalignant breast conditions (4 sources) Mammary duct ectasia; Translations: [Mammary duct ectasia of unspecified breast] Onset: 5 01-15-2015 Chronic Nonspecific chest pain (1 source) Atypical chest pain 05-12-2023 Episodic Nutritional deficiencies (3 sources) Vitamin D deficiency 02-17-2023 Chronic Other circulatory disease (1 source) Feeling of lump in throat; Translations: [Other specified symptoms and signs involving the circulatory and respiratory systems] Episodic Other diseases of kidney and ureters (3 sources) Cyst of kidney 02-17-2023 Episodic Other endocrine disorders (4 sources) Hypoglycemia 11-12-2016 Chronic Other gastrointestinal disorders (3 sources) Irritable bowel syndrome 02-17-2023 Chronic Other nervous system disorders (3 sources) Paresthesia of right upper limb 02-17-2023 Episodic Other screening for suspected conditions (not mental disorders or infectious disease) (1 source) Imaging of thorax abnormal 05-12-2023 Chronic Other screening for suspected conditions (not mental disorders or infectious disease) (1 source) Patient encounter status; Translations: [Encounter for screening mammogram for malignant neoplasm of breast] 02-07-2023 Episodic Other skin disorders (1 source) Eruption; Translations: [Rash and other nonspecific skin eruption] Episodic Ovarian cyst (1 source) Cyst of left ovary; Translations: [Unspecified ovarian cyst, left side] 02-07-2023 Episodic Residual codes; unclassified (4 sources) Chronic back pain 11-12-2016 Episodic Past or Other Problems Problem Classification Problem Date Documented Date Episodic/Chronic Cancer of cervix (4 sources) Cervical intraepithelial neoplasia; Translations: [Carcinoma in situ of cervix, unspecified] Onset: 11-30-2013 11-30-2013 Episodic Other circulatory disease (1 source) Other specified symptoms and signs involving the circulatory and respiratory systems; Translations: [Globus sensation] Onset: 10-11-2022 Episodic Results Test Name Value Interpretation Reference Range Facil ity Vital Signs Date Time Vital Sign Value Performing Clinician Facility 05-04-2023 22:23-0500 Diastolic Blood Pressure Non-Invasive 89 mm[Hg] SANDRA HAN MD [facility] 05-04-2023 22:23-0500 Heart rate 62 /min SANDRA HAN MD [facility] 05-04-2023 22:23-0500 Respiratory rate 18 /min SANDRA HAN MD [facility] 05-04-2023 22:23-0500 Systolic Blood Pressure Non-Invasive 114 mm[Hg] ASNDRA HAN MD [facility] 05-04-2023 20:50-0500 Body temperature 98.24 [degF] SANDRA HNA MD [facility] 05-04-2023 20:50-0500 Diastolic Blood Pressure Non-Invasive 66 mm[Hg] SANDRA HAN MD [facility] 05-04-2023 20:50-0500 Heart rate 66 /min SANDRA HAN MD [facility] 05-04-2023 20:50-0500 Respiratory rate 16 /min SANDRA HAN MD [facility] 05-04-2023 20:50-0500 Systolic Blood Pressure Non-Invasive 128 mm[Hg] SANDRA HAN MD [facility] 02-07-2023 14:44-0400 Body weight 77.11 kg Lianne Bowman MD Work Phone: [facility] 02-07-2023 14:44-0400 Diastolic blood pressure 60 mm[Hg] Lianne Bowman MD Work Phone: [facility] 02-07-2023 14:44-0400 Systolic blood pressure 102 mm[Hg] Lianne Bowman MD Work Phone: [facility] 10-06-2022 15:07-0400 Body height 177.8 cm Susan Collier MD Work Phone: [facility] 10-06-2022 15:07-0400 Body temperature 98.49 [degF] Susan Collier MD Work Phone: [facility] 10-06-2022 15:07-0400 Body weight 73.94 kg Susan Collier MD Work Phone: [facility] 10-06-2022 15:07-0400 Diastolic blood pressure 66 mm[Hg] Susan Collier MD Work Phone: [facility] 10-06-2022 15:07-0400 Heart rate 95 /min Susan Collier MD Work Phone: [facility] 10-06-2022 15:07-0400 SaO2% (BldA) [Mass fraction] 99 % Susan Collier MD Work Phone: [facility] 10-06-2022 15:07-0400 Systolic blood pressure 108 mm[Hg] Susan Collier MD Work Phone: [facility] 02-03-2022 07:47-0400 Body temperature 97.7 [degF] Mally Praisler-Wood [facility].HEALTH COMMUNICATIONS SPECIALIST Work Phone: [facility] 02-03-2022 07:47-0400 Body weight 75.75 kg Mally Praisler-Wood [facility].HEALTH COMMUNICATIONS SPECIALIST Work Phone: [facility] 02-03-2022 07:47-0400 Diastolic blood pressure 68 mm[Hg] Mally Praisler-Wood [facility].HEALTH COMMUNICATIONS SPECIALIST Work Phone: [facility] 02-03-2022 07:47-0400 Heart rate 90 /min Mally Praisler-Wood [facility]IC.HEALTH COMMUNICATIONS SPECIALIST Work Phone: [facility] 02-03-2022 07:47-0400 Respiratory rate 16 /min Mally Praisler-Wood [facility].HEALTH COMMUNICATIONS SPECIALIST Work Phone: [facility] 02-03-2022 07:47-0400 SaO2% (BldA) [Mass fraction] 97 % Mally Praisler-Wood [facility] PARAM[facility]IC.HEALTH COMMUNICATIONS SPECIALIST Work Phone: [facility] 02-03-2022 07:47-0400 Systolic blood pressure 108 mm[Hg] Mally Praisler-Wood [facility] PARAM[facility]IC.HEALTH COMMUNICATIONS SPECIALIST Work Phone: [facility] 10-29-2021 12:38-0400 Diastolic blood pressure 70 mm[Hg] ELFEGO DHILLONT DO [facility] 10-29-2021 12:38-0400 Heart rate 69 /min ELFEGO FROMMELT DO [facility] 10-29-2021 12:38-0400 Systolic blood pressure 99 mm[Hg] ELFEGO FROMMELT DO [facility] 10-29-2021 11:19-0400 Diastolic blood pressure 67 mm[Hg] ELFEGO FROMREIDT DO [facility] 10-29-2021 11:19-0400 Heart rate 68 /min ELFEGO [employer] DO [facility] 10-29-2021 11:19-0400 Systolic blood pressure 112 mm[Hg] ELFEGO [employer] DO [facility] 10-29-2021 09:35-0400 Body temperature 99.32 [degF] ELFEGO 360TT DO [facility] 10-29-2021 09:35-0400 Body weight 78.8 kg ELFEGO Desura DO [facility] 10-29-2021 09:35-0400 Diastolic blood pressure 72 mm[Hg] ELFEGO [employer] DO [facility] 10-29-2021 09:35-0400 Heart rate 82 /min ELFEGO [facility] 10-29-2021 09:35-0400 Respiratory rate 18 /min ELFEGO [facility] 10-29-2021 09:35-0400 Systolic blood pressure 124 mm[Hg] ELFEGO HARMANMD Insider DO [facility] Encounters Encounter Date Encounter Type Care Provider Facility Start: 05-18-2023 End: 05-18-2023 Patient encounter procedure AVIVA RAMIREZ [facility] - HEALTH COMMUNICATIONS SPECIALIST [facility] Start: 05-04-2023 End: 05-05-2023 Emergency department patient visit SANDRA HAN MD Facility:B Start: 05-04-2023 End: 05-04-2023 Emergency department patient visit SANDRA HAN MD [facility] Start: 02-24-2023 ambulatory AVIVA LÓPEZ [facility] - HEALTH COMMUNICATIONS SPECIALIST Facility:[facility] Start: 02-18-2023 End: 02-19-2023 ambulatory AVIVA RAMIREZ [facility] - HEALTH COMMUNICATIONS SPECIALIST Facility: Start: 02-18-2023 End: 02-18-2023 Patient encounter procedure AVIVA RAMIREZ [facility] - HEALTH COMMUNICATIONS SPECIALIST [facility] Start: 02-07-2023 End: 02-07-2023 ambulatory LIANNE BOWMAN Facility:[facility] Start: 02-07-2023 End: 02-07-2023 Patient encounter procedure Lianne Bowman MD Work Phone: OB/Gynecology Procedures Date Procedure Procedure Detail Performing Clinician Start: 04-11-2020 Extracorporeal shockwave lithotripsy of calculus of kidney AVIVA RAMIREZ [facility] - HEALTH COMMUNICATIONS SPECIALIST Cholecystectomy AVIVA LÓPEZ [facility] - HEALTH COMMUNICATIONS SPECIALIST H/O: hysterectomy ELFEGO BOX OMMELCeasar DO History of appendectomy History of append ectomy AVIVA RAMIREZ [facility] - HEALTH COMMUNICATIONS SPECIALIST History of cholecystectomy History of cholecystectomy AVIVA RAMIREZ [facility] - HEALTH COMMUNICATIONS SPECIALIST History of thyroidectomy IESHA RAMIREZ [facility] - HEALTH COMMUNICATIONS SPECIALIST Plan of Treatment Date Care Activity Detail Author Start: 07-22-2023 HPV TESTING HPV TESTING [facility] Start: 02-07-2023 End: 02-08-2024 PELVIC US WHI PELVIC US I Anc Imaging Routine Ovarian cyst, left Expected: 02/07/2023, Expires: 02/08/[address] [facility] Work Phone: Immunizations Immunization Date Immunization Notes Care Provider Fa crystal 04-06-2016 influenza virus vacc ine, unspecified formulation Lianne Bowman MD Work Phone: [facility] 03-08-2012 influenza virus vacc ine, unspecified formulation Mally Morrison [facility] PARAMEDIC.HEALTH COMMUNICATIONS SPECIALIST Work Phone: [facility] 02-27-2012 tetanus toxoid, redu zacarias diphtheria toxoid, and acellular pertussis vaccine, adsorbed Mally Prince DORSEY.HEALTH COMMUNICATIONS SPECIALIST Work Phone: [facility] Payers Date Payer Category Payer Medicaid [id number] 2012 Medicaid [id number] 1983 Unknown [id number] 1983 Unknown [id number] 1983 Unknown [id number] 1983 Unknown [id number] Social History Date Type Detail Facility Start: 08-21-2020 Tobacco smoking status Heavy t obacco smoker (finding) [facility] Sex Assigned At Sex [facility] Start: 10-03-2014 Tobacco smoking stat us [facility] Smokes tobacco daily [facility] History of tobacco use Cigarette Smoker C [facility] Start: 10-03-2014 End: 10-06-2022 Cigarettes smoked current (pack per day) - Reported 1 [facility] Start: 10-03-2014 Tobacco use and exposure Smokeless tobacco non-user [facility] Start: 02-03-2022 End: 02-07-2023 Alcohol intake Current non-drinker of alcohol (finding) [facility] Start: 1985 Sex Assigned At Not on file C [facility] Start: 01-24-2022 End: 02-03-2022 Exposure to SARS-CoV-2 (event) Not sure [facility] Work Phone: Start: 10-06-2022 End: 02-07-2023 Tobacco use panel [facility] Adult Depression Screening Assessment 0 [facility] Medical Equipment Procedure Code Equipment Code Equipment Origin al Text Equipment Identifier Dates Start: 02-06-2013 End: 02-07-2023 Functional Status Date Assessment Result Facility 05-04-2023 Functional Status Activity Kelly chaves [facility] 05-04-2023 Functional Status Standard Safet y ID band on, Call device within reach, Bed in low position, Wheels locked [facility] 10-29-2021 Functional Status Independent [facility] 10-29-2021 Functional Status N/A [facility] Mental Status Date Assessment Result Facility 05-04-2023 Mental Status Orientation Oriented x 4 [facility] 05-04-2023 Mental Status [facility] 10-29-2021 Mental Status Orientation Oriented x 4 [facility] 10-29-2021 Mental Status [facility] Clinical Notes 01-16-2013 to 05-18-2023 Lianne Bowman MD - 02/07/2023 2:42 PM EDTTelephone Encounter - Susan Collier MD - 10/11/2022 4:40 PM EDTLdipesh Collier MD - 10/06/2022 3:17 AM EDTPatient Instructions Note Date & Type Note Facility 05-18-2023 Note ORIGINAL EXAMINATION: LIMITED ABDOMINAL ULTRASOUND05/18/2023 8:05 am Limited ultrasound of the abdomen attention right upper quadrant COMPARISON: Ultrasound 11/29/2016 HISTORY: ORDERING SYSTEM PROVIDED HISTORY: Reason for Exam: RUQ pain ongoing greater then 3 months, history of gallbladder removal, FINDINGS: The gallbladder is not visualized surgically absent by history.. There is no intrahepatic bile duct dilatation. The common duct is 1.7 mm at the joseph hepatis. The liver is not enlarged. There may be Reidel lobe configuration. Questionable mild fatty infiltration. No focal lesion. The pancreas as visualized is normal. No ascites is seen in the RIGHT upper quadrant. Limited survey images of the RIGHT kidney show normal echogenicity and no pelvocaliectasis. IMPRESSION: No acute abnormality is seen. Interpreted by: Manuel Francois MD Preliminary Report By: Manuel Francois MD Electronically signed By Manuel Francois MD Dictated Date: 05/18/2023 4:40:37 PM Prelim Date: 05/18/2023 4:42:24 PM Sign Date: 05/18/2023 4:42:24 PM Ordering Provider: AVIVA RAMIREZ [facility] 05-05-2023 Hospital Discharg e instructions Patient Education 05/04/2023 22:15:57 CHEST WALL STRAIN(CUSTOM) Chest Strain You have a chest strain. This happens when the muscles between the ribs stretch and tear. This may occur when you have a severe cough. It may also happen after strenuous lifting or twisting injuries of the upper back. A chest strain usually causes pain when you move or take a deep breath. The strain may take a few days to a few weeks to heal. Home care Follow these guidelines when caring for yourself at home: Rest. Don t do any heavy lifting or strenuous activity. Don t do any activity that causes pain. If you have a severe cough, use a cough syrup with dextromethorphan, unless another cough medicine was prescribed. If you have high blood pressure, check with your health care provider or pharmacist before using an zqie-wgi-[id number] cough medicine. You may use acetaminophen or ibuprofen to control pain, unless another medicine was prescribed. If you have chronic liver or kidney disease, talk with your provider before using these medicines. Also talk with your provider if you ve had a stomach ulcer or GI bleeding. Follow-up care Follow up with your health care provider, or as advised. When to seek medical advice Call your health care provider right away if any of these occur: A change in the type of pain. This means if it feels different, gets worse, lasts longer, or begins to spread into your shoulder, arm, neck, jaw, or back. Pain doesn t go away in 1 week Shortness of breath, difficulty breathing, or fast breathing Pain gets worse when you breathe Cough with dark-colored sputum (phlegm) or blood Weakness, dizziness, or fainting Fever of 101 F (38.3 C) or higher, or as directed by your health care provider [id number] [employer] [place] [address], [place] [address]. All rights reserved. This information is not intended as a substitute for professional medical care. Always follow your healthcare professional's instructions. Follow Up Care 05/04/2023 20:46:35 With:AVIVA RAMIREZ [facility] - HEALTH COMMUNICATIONS SPECIALIST Address: [address] [facility] [place] [address]- When:2-4 days [facility] 05-04-2023 Note Discharge Instructions Thank you for allowing [facility] to assist you with your healthcare needs. The following is important discharge information regarding your hospital visit. Diagnosis from Today's Visit Chest pain What to Do Next Instructions from Your Care Team No qualifying data available. Post Acute Orders No qualifying data available. You Need to Schedule the Following Appointments Follow Up with AVIVA RAMIREZ APRN, CNP When Within 2-4 days Where: [address], [place] [id number]- Allergies Naprosyn PROzac codeine Medications Please ask your primary doctor or pharmacist before taking any other medication not listed, including over the counter drugs, herbal medications, vitamins and or supplements as they may interact with your home medications. Please take this list to your next doctor s visit. Bring all medications you take, including over the counter medications, herbals and other supplements with you to your doctor s visit. Patients and families are reminded to discard old lists and to update any records with all medication providers or retail pharmacies. Education Materials Chest Strain You have a chest strain. This happens when the muscles between the ribs stretch and tear. This may occur when you have a severe cough. It may also happen after strenuous lifting or twisting injuries of the upper back. A chest strain usually causes pain when you move or take a deep breath. The strain may take a few days to a few weeks to heal. Home care Follow these guidelines when caring for yourself at home: Rest. Don t do any heavy lifting or strenuous activity. Don t do any activity that causes pain. If you have a severe cough, use a cough syrup with dextromethorphan, unless another cough medicine was prescribed. If you have high blood pressure, check with your health care provider or pharmacist before using an xmdv-jbb-[id number] cough medicine. You may use acetaminophen or ibuprofen to control pain, unless another medicine was prescribed. If you have chronic liver or kidney disease, talk with your provider before using these medicines. Also talk with your provider if you ve had a stomach ulcer or GI bleeding. Follow-up care Follow up with your health care provider, or as advised. When to seek medical advice Call your health care provider right away if any of these occur: A change in the type of pain. This means if it feels different, gets worse, lasts longer, or begins to spread into your shoulder, arm, neck, jaw, or back. Pain doesn t go away in 1 week Shortness of breath, difficulty breathing, or fast breathing Pain gets worse when you breathe Cough with dark-colored sputum (phlegm) or blood Weakness, dizziness, or fainting Fever of 101 F (38.3 C) or higher, or as directed by your health care provider [id number] [employer] [place] [address], [place] [address]. All rights reserved. This information is not intended as a substitute for professional medical care. Always follow your healthcare professional's instructions. Additional Information VACCINATE! IT SAVES LIVES! Members of the community who have not yet received the COVID-19 vaccine and would like to receive it can visit one of [facility] vaccine clinics. There are many vaccine clinic locations within the [facility]. For locations and available times, please visit [email or web address] It is important to note that some COVID mobile vaccine clinics are held outdoors and may be canceled in rainy or stormy conditions. To learn more about pediatric vaccinations (ages 5-11), we invite you to visit the [facility] webpage. [email or web address] To learn more about the COVID-19 vaccine, we invite you to visit the CDC website for a list of frequently asked questions. https://www.cdc.gov/coronavirus/ 2019-ncov/vaccines/faq.html [facility] Access Instructions: Stay connected with your healthcare team and access your personal medical information anytime with the [facility]. If you would like a full copy of your medical records please contact the [facility] Medical Records Department Tuesday through Tuesday between 8a.m. and 4:30p.m. Please follow the directions below to access the portal: 1.Access the email account you provided upon registration to the [facility].2.Look for an invitation email from [facility].3.Open the email and access the invitation link: Accept Invitation to [facility].Fill in the required vila to create your account. Sign into [email or web address] with your username and password that you created in the above steps to stay up to date. You can then view a summary of results, a summary of your visits, and the ability to download your summaries to your computer or send the information securely to a physician. Remember that your healthcare information is confidential, so carefully consider who you will allow to register on the [facility] Portal for access to your information. You can also access the [facility] Patient Portal on the [employer]. Simply click on Health Records under Health Data and then click on the [facility] logo. HOW TO SAFELY DISPOSE OF PRESCRIPTION MEDICATIONS Please use one of the following methods to safely dispose of your unused medications. 1.Use a drug disposal kit: the drug disposal pouch allows you to safely discard your old and unused drugs. Ask your nurse to give you one when you are discharged.2.Visit a local take-back location: Many local pharmacies and police departments have programs that collect old and unwanted prescription drugs. Call your local pharmacy or go to http://WalkSource.ArcSight/3Y1Kk1f to find one close to you.3.Make use of household items: Use cat litter or old coffee grounds to dispose medications if other options are not available. Mix your drugs with these household products, seal them in an airtight container and throw it into the garbage. Call [facility]: [phone] to be sure your drugs can be disposed of in this way. Some medicines may require a different approach.4.Never flush your medications down the toilet. IF YOU HAVE BEEN PRESCRIBED AN OPIOIDS FOR PAIN If you have been prescribed an opioid (such as hydrocodone, oxycodone or morphine), it is critical to understand the possible side effects and risks of opioid pain medications. Even when taken as directed, opioids can have several side effects including: Tolerance, meaning you might need to take more of a medication for the same pain relief. Nausea, vomiting and/or constipation. Sleepiness, dizziness, dry mouth, confusion, depression or itching. Physical dependence, meaning you have withdrawal symptoms when a medication is stopped ? this can develop within a few days. KNOW YOUR RESPONSIBILITIES It is important to know exactly how much and how often to take the opioid pain medications you are prescribed. Never take opioids in higher amounts or more often than prescribed. Do not combine opioids with alcohol or other drugs that cause drowsiness, such as benzodiazepines, also known as benzos, including diazepam and alprazolam, muscle relaxants or sleep aids. Never sell or share prescription opioids. This is illegal. Store opioids in a secure place and out of reach of others (including children, family, friends and visitors). The last page(s) of this document has been signed and retained as a CHART COPY Signatures Patient Education Materials CHEST WALL STRAIN(CUSTOM) Medication Leaflets My discharge plan and instructions have been reviewed and explained to me and I,AMY VILLEDA understand my current condition and have read and understand these discharge instructions. I have received a written copy of the plan/instructions. If I have questions, I am aware that I should contact my doctor. 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 received a written copy of the plan/instructions. If I have questions, I am aware that I should contact my doctor. 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 Rivera on January 08 for cramping and spotting. An ultrasound was done showed an intrauterine and gestational sac. No pole seen. On January 10 a quantitative hCG was done that was 3260. Patient states she continues to have brownish discharge. She states the discharge has not increased. She states she notices less cramping than she did when she saw Dr. Rivera. She denies any pain today. Discussed continued spotting with Dr. Solorio. Dr. Solorio ordered a quantitative hCG to be done today and an ultrasound next week. Patient is to call/come in if the vaginal discharge increases, the development of pain, or PRN problems. TKRN History of macrosomia in inf ant in prior , currently 01/16/2013 09/06/2013 Overview: 01/16/2013Patient's last child weighed 9 lbs. 2 oz. at . TKRN History of hemorrhage, currently preg nant 01/16/2013 09/06/2013 Overview: 01/16/2013Patient states she has a history of hemorrhage with her last 2 pregnancies. TKRn Tobacco use in 01/16/2013 014 Overview: 01/16/2013 Pt smokes 1/2 pack a day of cigarettes, down from 1 ppd. Discussed risks of smoking during . Advised pt to quit.TKRN History of delivery, currently 01/16/2013 09/06/2013 Overview: 01/16/2013 Pt has a history of PTL and delivery with her first 2 pregnancies. She delivered her first 2 pregnancies at 35 and 36 weeks, and her last at 39 weeks. Patient states she was seen in the hospital once for labor with her last and was given a shot to stop the labor. She denies being given progesterone injections. Signs and symptoms of PTL discussed and the importance of going to the hospital at onset of PTL should it occur. TKRN Vaginitis 01/01/2013 04/10/2013 Vaginal itching 01/01/2013 04/10/2013 Vaginal discharge 01/01/2013 04/10/2013 IUD (intrauterine device) in place 01/17/2012 06/26/2012 Threatened premature labor, antepartum(644.03) 0 08/17/2010 08/18/2011 Personal history of pre-term labor 04/21/2010 08/18/2011 Supervision of other high-risk (V23.89) 04/21/2010 08/18/2011 Sebaceous cyst 11/08/2007 04/10/2013 Supervision of other normal 10/28/2005 06/16/2009 documented as of this encounter (statuses as of 10/09/2022) [facility] History of Past illness Narrative* Problem Noted Date Resolved Date First trimester bleeding 01/16/2013 013 Overview: 01/16/2013Patient was seen by Dr. Rivera on January 08 for cramping and spotting. An ultrasound was done showed an intrauterine and gestational sac. No pole seen. On January 10 a quantitative hCG was done that was 3260. Patient states she continues to have brownish discharge. She states the discharge has not increased. She states she notices less cramping than she did when she saw Dr. Rivera. She denies any pain today. Discussed continued spotting with Dr. Solorio. Dr. Solorio ordered a quantitative hCG to be done today and an ultrasound next week. Patient is to call/come in if the vaginal discharge increases, the development of pain, or PRN problems. TKRN History of macrosomia in inf ant in prior , currently 01/16/2013 09/06/2013 Overview: 01/16/2013Patient's last child weighed 9 lbs. 2 oz. at . TKRN History of hemorrhage, currently preg nant 01/16/2013 09/06/2013 Overview: 01/16/2013Patient states she has a history of hemorrhage with her last 2 pregnancies. TKRn Tobacco use in 01/16/2013 014 Overview: 01/16/2013 Pt smokes 1/2 pack a day of cigarettes, down from 1 ppd. Discussed risks of smoking during . Advised pt to quit.TKRN History of delivery, currently 01/16/2013 09/06/2013 Overview: 01/16/2013 Pt has a history of PTL and delivery with her first 2 pregnancies. She delivered her first 2 pregnancies at 35 and 36 weeks, and her last at 39 weeks. Patient states she was seen in the hospital once for labor with her last and was given a shot to stop the labor. She denies being given progesterone injections. Signs and symptoms of PTL discussed and the importance of going to the hospital at onset of PTL should it occur. TKRN Vaginitis 01/01/2013 04/10/2013 Vaginal itching 01/01/2013 04/10/2013 Vaginal discharge 01/01/2013 04/10/2013 IUD (intrauterine device) in place 01/17/2012 06/26/2012 Threatened premature labor, antepartum(644.03) 0 08/17/2010 08/18/2011 Personal history of pre-term labor 04/21/2010 08/18/2011 Supervision of other high-risk (V23.89) 04/21/2010 08/18/2011 Sebaceous cyst 11/08/2007 04/10/2013 Supervision of other normal 10/28/2005 06/16/2009 documented as of this encounter (statuses as of 10/12/2022) [facility] History of Past illness Narrative* Problem Noted Date Diagnosed Date Resolved Date First trimester bleeding 01/16/2013 Overview: 01/16/2013Patient was seen by Dr. Rivera on January 08 for cramping and spotting. An ultrasound was done showed an intrauterine and gestational sac. No pole seen. On January 10 a quantitative hCG was done that was 3260. Patient states she continues to have brownish discharge. She states the discharge has not increased. She states she notices less cramping than she did when she saw Dr. Rivera. She denies any pain today. Discussed continued spotting with Dr. Solorio. Dr. Solorio ordered a quantitative hCG to be done today and an ultrasound next week. Patient is to call/come in if the vaginal discharge increases, the development of pain, or PRN problems. TKRN History of macrosomia in inf ant in prior , currently 01/16/2013 09/06/2013 Overview: 01/16/2013Patient's last child weighed 9 lbs. 2 oz. at . TKRN History of hemorr radha, currently 01/16/2013 09/06/2013 Overview: 01/16/2013Patient states she has a history of hemorrhage with her last 2 pregnancies. TKRn Tobacco use in 01/16/2013 Overview: 01/16/2013 Pt smokes 1/2 pack a day of cigarettes, down from 1 ppd. Discussed risks of smoking during . Advised pt to quit.TKRN History of delivery, currently 01/16/2013 09/06/2013 Overview: 01/16/2013 Pt has a history of PTL and delivery with her first 2 pregnancies. She delivered her first 2 pregnancies at 35 and 36 weeks, and her last at 39 weeks. Patient states she was seen in the hospital once for labor with her last and was given a shot to stop the labor. She denies being given progesterone injections. Signs and symptoms of PTL discussed and the importance of going to the hospital at onset of PTL should it occur. TKRN Vaginitis 01/01/2013 04/10/2013 Vaginal itching 01/01/2013 04/10/2013 Vaginal discharge 01/01/2013 04/10/2013 IUD (intrauterine device) in place 01/17/2012 06/26/2012 Threatened premature labor, antepartum(644.03) 08/17/2010 08/18/2011 Personal history of pre-term labor 04/21/2010 08/18/2011 Supervision of other high-ri sk (V23.89) 04/21/2010 08/18/2011 Sebaceous cyst 11/08/2007 04/10/2013 Supervision of other normal 10/28/2005 06/16/2009 documented as of this encounter (statuses as of 02/08/2023) [facility] No data available for this section [facility] Evaluation + Plan note Future Appointments Appointment Date:03/04/2023 09:00:00 AM Scheduled Provider:AVIVA RAMIREZ APRN, CNP Location:[facility] Appointment Type:PC OV Follow Up Diagnostic Tests Pending * .KATHI by IFA Screen 02/18/23 * Copper Level 02/18/23 * Rheumatoid Factor 02/18/23 Future Scheduled Tests Radiology* CT Abdomen and Pelvis w/o contrast 02/17/23 [facility] Evaluation + Plan note Future Appointments Appointment Date:05/10/2023 09:40:00 AM Scheduled Provider:GEE RIDDLE Location:UROLOGY Appointment Type: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 REEL CART OPERATOR Appointment Date:05/20/2023 09:00:00 AM Scheduled Provider: Location:[facility] Appointment Type:OSM OV Follow Up Appointment Date:06/03/2023 08:00:00 AM Scheduled Provider:AVIVA RAMIREZ APRN, CNP Location:[facility] Appointment Type:PC OV Follow Up Future Scheduled Tests Laboratory* Folate Level 06/04/23 * Thyroid Stimulating Hormone 06/04/23 * Free T4 06/04/23 * Complete Blood Count 06/04/23 * Lipid Profile 06/04/23 * Vitamin D Level 06/04/23 * Complete Metabolic Panel 06/04/23 Radiology* CT Abdomen and Pelvis w/o contrast 03/07/23 [facility] Evaluation + Plan note Future Appointments Appointment Date:05/20/2023 09:00:00 AM Scheduled Provider: Location:[facility] Appointment Type:OSM OV Follow Up Appointment Date:06/02/2023 09:00:00 AM Scheduled Provider: Location:[facility] Appointment Type:MA Mammogram Screening Bilateral w/ Delonte Appointment Date:06/03/2023 08:00:00 AM Scheduled Provider:AVIVA RAMIREZ APRN, CNP Location:[facility] Appointment Type:PC OV Follow Up Future Scheduled Tests Laboratory* Folate Level 06/04/23 * Thyroid Stimulating Hormone 06/04/23 * Free T4 06/04/23 * Complete Blood Count 06/04/23 * Lipid Profile 06/04/23 * Vitamin D Level 06/04/23 * Complete Metabolic Panel 06/04/23 Radiology* MA Mammo Diagnostic Left w/ Delonte 05/12/23 * MA Mammo Screening Bilateral w/ Del[place] 06/02/23 * XR Chest 2 Views (PA & Lateral) 05/10/23 * CT Abdomen and Pelvis w/o contrast 03/07/23 [facility] Evaluation note* Diagnosis Rash- Primary Rash and other nonspecific skin eruption [facility] Diagnosis Globus sensation- Primary Gastrointestinal malfunction arising from mental factors [facility] Diagnosis Ovarian cyst, left- Primary Other and unspecified ovarian cyst Encounter for screening mammogram for malignant neoplasm of breast Other screening mammogram documented in this encounter [facility] Discharge instructions No data available for this section [facility] Progress note No data available for this section [facility] Reason for referral (narrative)* Diagnostic Procedure Only (Routine) - Authorized Specialty Diagnoses / Procedures Referred By Fortunato webster Referred To Contact [facility] Diagnoses Globus sensation Procedures US THYROID/PARATHYROID US SOFT TISSUE HEAD & NECK REAL TIME IMGE Susan Mcgarry MD [address] [place] [address] [facility] Referral ID Status Reason Start Date Expiration Date Visits Requested Visits Authorized [id number] Authorized Auto-Generat ed Referral 10/06/2022 11/05/2023 1 1 [facility] for referral (narrative)* Diagnostic Procedure Only (Routine) - Authorized Specialty Diagnoses / Procedures Referred By Fortunato webster Referred To Contact [facility] Diagnoses Encounter for screening mammogram for malignant neoplasm of breast Procedures MARIYA SCREENING W DELONTE SCREENING DIGITAL BREAST TOMOSYNTHESIS BI SCREENING MAMMOGRAPHY BI 2-VIEW BREAST INC CAD Lianne Bowman MD [address] [place] [address] [facility] [address] [place] [address] Referral ID Status Reason Start Date Expiration Date Visits Requested Visits Authorized [id number] Authorized Auto-Generat ed Referral 03/08/2024 1 1 * Diagnostic Procedure Only (Routine) - Authorized Specialty Diagnoses / Procedures Referred By Fortunato t Referred To Contact [facility] Diagnoses Ovarian cyst, left Procedures PELVIC US WHI US PELVIC NONOBSTETRIC REAL-TIME IMAGE COMPLETE Lianne Bowman MD [address] [place] [phone] [facility] [address] [place] [address] Referral ID Status Reason Start Date Expiration Date Visits Requested Visits Authorized [id number] Authorized Auto-Generat ed Referral 3 02/07/2024 1 1 [facility] Summary Purpose Family History No Family History Records FoundNo Family History Records Found No data available for this section No data available for this section No Family History Records Found No data available for this section Advance Directives No Advanced Directives Records FoundNo Advanced Directives Records FoundNo Advanced Directives Records Found Additional Source Comments INFORMATION SOURCE (unrecogn ized section and content) DATE CREATED AUTHOR AUTHOR'S ORGANIZ ATION 02/12/2023 [facility] DATE CREATED AUTHOR AUTHOR'S ORGANIZ ATION 05/06/2023 [facility] Care Team (unrecognized sect ion and content) Care Team Personnel Name: LEVI KENT MD Member Role: Primary Care Physician Address: Address: [address] [place] [address]- Care Team Related Persons Name: RONAL Name: ALLEN VILLEDA Name: ALLEN VILLEDA Name: AN VILLEDA Address: Home [address] [place] [address] Name: GAEL REES Address: Home [address] [place] [address] [place] Source Comments (unrecognize d section and content) In the event this informatio n is protected by the Federal Confidentiality of Alcohol and Drug Abuse Patient Records regulations: The Federal rules restrict any use of the information to criminally investigate or prosecute any alcohol or drug abuse patient.[facility] the event this information is protected by the Federal Confidentiality of Alcohol and Drug Abuse Patient Records regulations: The Federal rules restrict any use of the information to criminally investigate or prosecute any alcohol or drug abuse patient.[facility] the event this information is protected by the Federal Confidentiality of Alcohol and Drug Abuse Patient Records regulations: The Federal rules restrict any use of the information to criminally investigate or prosecute any alcohol or drug abuse patient.[facility] the event this information is protected by the Federal Confidentiality of Alcohol and Drug Abuse Patient Records regulations: The Federal rules restrict any use of the information to criminally investigate or prosecute any alcohol or drug abuse patient.[facility] Reason for Visit (unrecogniz ed section and content) Reason Comments Follow Up Urgent care told her to follow up with the doctor who did her thyroid surgery Reason Comments Results Reason Comments Consult Care Teams (unrecognized sec tion and content) Care Team Personnel Name: AVIVA RAMIREZ APRN - HEALTH COMMUNICATIONS SPECIALIST Position: P4 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 [place] [address]- Care Team Related Persons Name: TABBY VILLEDA Feeder Catcher Relationship Specialty Start Date End Date Levi Kent MD [address] [place], [place] [id number] PCP - General Internal Medicine 12/19/20 Feeder Catcher Relationship Specialty Start Date End Date Levi Kent MD [address] [facility], [place] [phone] PCP - General Internal Medicine 12/19/20 Feeder Catcher Relationship Specialty Start Date End Date Levi Kent MD [address] [facility] [address] PCP - General Internal Medicine 12/19/20 FOR RECORDS PERTAINING TO PATIENTS WHO ARE OR HAVE BEEN ENROLLED IN A CHEMICAL DEPENDENCY/SUBSTANCEABUSE PROGRAM, SOME INFORMATION MAY BE OMITTED. This clinical summary was aggregated from multiple sources. Caution should be exercised in using it in the provision of clinical care. This summary normalizes information from multiple sources, and as a consequence, information in this document may materially change the coding, format and clinical context of patient data. In addition, data may be omitted in some cases. CLINICAL DECISIONS SHOULD BE BASED ON THE PRIMARY CLINICAL RECORDS. [facility] [employer] provides no warranty or guarantee of the accuracy or completeness of information in this document.
[2023-06-01 08:07] LABS: Hematocrit 41.4 % (37-47); Mean Corp Hgb Conc 33.8 g/dL (32-36); Mean Corpuscular Hgb 30.3 pg (27.0-32.0); Mean Corpuscular Volume 89.6 fL (81-99); Mean Platelet Vol. 10.8 fl (6.2-12.0); Platelet Count 365 K/mm3 (150-450); RBC Distribution Width CV 12.7 % (11.6-14.6); RBC Distribution Width SD 41.6 fl (35.1-43.9); Red Blood Count 4.62 M/mm3 (4.2-5.4); White Blood Count 8.1 K/mm3 (4.4-11.0)
[2023-06-01 08:45] LABS: Vitamin D,25 Hydroxy 65.8 ng/mL
[2023-06-01 11:24] LABS: ALB/GLOB Ratio 1.2 RATIO (0.9-2.4); AST(SGOT) 11 U/L (15-37); Alanine Aminotransfer ALT/SGPT 22 U/L (13-56); Albumin, Serum 3.7 g/dL (3.2-5.0); Alkaline Phosphatase 46 U/L (45-117); Anion Gap 5 (5-15); BUN 14 mg/dL (7-18); BUN/Creat Ratio 13.2 RATIO (10-20); Calcium,Total 8.6 mg/dL (8.5-10.1); Chloride 108 mmol/L (98-107); Cholesterol 157 mg/dL (200); Creatinine, Serum 1.06 mg/dL (0.55-1.02); EST Glomerular Filtration Rate 61 mL/min (>60); Est Glom Filt Rate - Afr Amer 74 mL/min (>60); Globulin 3.2 g/dL (2.2-4.2); Glucose 103 mg/dL (74-106); High Density Lipoprotein 60 mg/dL; Potassium 4.1 mmol/L (3.5-5.1); Protein, Total 6.9 g/dL (6.4-8.2); Sodium Level 140 mmol/L (136-145); T4 Free Direct 1.17 ng/dL (0.76-1.46); Thyroid Stim Hormone (TSH) 2.32 uIU/mL (0.358-3.74); Triglycerides 35 mg/dL; Very Low Density Lipoprotein 7 mg/dL (5-40)
== END | disposition home or self-care (01) ==
LOC: LAB 07:39
PROVIDERS: Internal Medicine Endocrinology, Diabetes & Metabolism; PCP Nurse Practitioner Family; Referring Provider Nurse Practitioner Family; Visit Provider Nurse Practitioner Family
DX: K58.9 Irritable bowel syndrome, unspecified (principal); D51.9 Vitamin B12 deficiency anemia, unspecified; N20.0 Calculus of kidney; E03.9 Hypothyroidism, unspecified; E55.9 Vitamin D deficiency, unspecified; Z13.6 Encounter for screening for cardiovascular disorders
CPT/HCPCS: 36415; 80053; 80061; 82306; 82746; 84439; 84443; 85027

== ENCOUNTER → 2023-11-30 | Outpatient (CLI) | payer MEDICAID, SELFPAY ==
[2023-11-30 10:31] LABS: Vitamin D,25 Hydroxy 40.4 ng/mL
[2023-11-30 10:44] LABS: T4 Free Direct 1.06 ng/dL (0.76-1.46)
== END | disposition home or self-care (01) ==
LOC: LAB 09:31
PROVIDERS: PCP Nurse Practitioner Family; Referring Provider Nurse Practitioner Family; Visit Provider Nurse Practitioner Family
DX: E03.9 Hypothyroidism, unspecified (principal); E55.9 Vitamin D deficiency, unspecified
CPT/HCPCS: 36415; 82306; 84439; 84443

== ENCOUNTER 2024-01-29 08:46 | Emergency (ER) | payer MEDICAID, SELFPAY ==
[2024-01-29 08:47] VITALS: BP 119/93; PULSE 101; RESP 20; TEMP 36.1; O2SAT 100; BMI 27.7
--- NOTE | 2024-01-29 09:08 | EDS_ITS ---
HPI History of Present Illness Chief Complaint: Abd Pain Informant: patient Narrative Narrative: 38-year-old female presenting to the emergency room chief complaint of abdominal pain. Patient states that during the night she developed cramping muscular like pain in the right upper quadrant. Subsequently migrated to the right lower quadrant and is now more of a constant ache. She states it is causing her right upper thigh anteriorly to hurt as well. She denies any vomiting no diarrhea. She notes a normal bowel movement this morning. She notes some anorexia stating that she tried to have some toast this morning but did not sit well. She denies any urinary symptoms. She has had prior cholecystectomy appendectomy and full hysterectomy. She has had prior kidney stone and states this does feel different than that and that she does not have the urinary frequency or pressure. [facility] Medical History Cellulitis of right thigh Normal stress echocardiogram Acute sinusitis, unspecified Urinary tract infection with hematuria Radiculopathy Chronic back pain Preventative health care Anterior neck pain Other acute postprocedural pain Elevated lipase Low vitamin B12 level Low calcium levels History of stress test PTSD (post-traumatic stress disorder) Paresthesia Depression Anxiety Hypoglycemia Fatty liver Back pain Syncope History of hiatal hernia Smoker Shortness of breath on exertion Leg cramps History of pain when walking Cardiology follow-up encounter Chest pain Right groin pain Right ovarian cyst Urgency of urination Duodenal mass Epigastric pain Kidney stones Right lower quadrant pain Abnormal tumor markers Hepatomegaly Right renal stone Renal colic on right side History of Holter monitoring Right flank pain Suprapubic discomfort Urinary frequency Hidradenitis suppurativa Abscess of left axilla Urinary tract infection Ureteral calculus, right Irregular heart beat Abnormal urinalysis Diverticulosis Bloating Tenesmus (rectal) Unintentional weight loss Post-surgical hypoparathyroidism Diarrhea Abdominal pain Wears dentures History of COVID-19 Injury of head and neck Asthma Shortness of breath on exertion Leg cramps Hx of cystic acne Bradycardia Intermittent palpitations COVID-19 (03/17/21) Upper respiratory infection Vertigo Chronic constipation Pelvic pain Annular tear of lumbar disc Degenerative disc disease at L5-S1 level Generalized anxiety disorder with panic attacks Postoperative hypothyroidism Tinea pedis of both feet Hypokalemia Hypocalcemia Polycystic ovaries Hypothyroidism Carpal tunnel syndrome H/O breast lump Seasonal allergies Tobacco use Hypocalcemia syndrome TMJ (temporomandibular joint syndrome) Arthritis Home Medications ?Medication ?Instructions ?Recorded ?Last Taken ?Type cholecalciferol (vitamin D3) 125 125 mcg PO DAILY 07/01/22 Unknown History mcg (5,000 unit) capsule vitamin B12 1,000 mcg-folic acid 1 tab sublingual QODAY 07/29/22 Unknown History 400 mcg sublingual tablet dicyclomine 20 mg tablet 20 mg PO TID abdominal pain 11/03/22 Unknown History tizanidine 4 mg tablet 4 mg PO BID PRN PAIN 12/03/22 12/08/22 History levocetirizine 5 mg tablet See Rx Instructions .Route 12/14/22 Unknown Rx .COMPLEX #90 TABLETS calcitriol 0.5 mcg capsule 1.5 mcg (3 x 0.5 mcg) PO QHS 04/13/23 Unknown Rx calcium #90 caps levothyroxine 175 mcg tablet 150 mcg PO DAILY 10/27/23 Unknown History doxycycline monohydrate 100 mg 100 mg PO BID #20 caps 11/07/23 Unknown Rx capsule pantoprazole 40 mg tablet,delayed 40 mg PO DAILY #30 tabs 11/30/23 Unknown Rx release duloxetine 20 mg capsule,delayed 20 mg PO DAILY #30 caps 01/25/24 Unknown Rx release Allergy/AdvReac Type Severity Reaction Status Date / Time codeine Allergy Mild Itching Verified 01/29/24 08:48 fluoxetine (From Prozac) AdvReac EDWIN Verified 01/29/24 08:48 naproxen (From Naprosyn) AdvReac NOSEBLEED Verified 01/29/24 08:48 Family History Father Alcoholism Mother Anemia Depression Hypertension Hyperlipemia Diabetes Grandfather Diabetes Myocardial infarction Grandmother Breast cancer Diabetes Surgical History History of esophagogastroduodenoscopy (EGD) History of bilateral salpingo-oophorectomy S/P appendectomy History of appendectomy History of esophagogastroduodenoscopy (EGD) History of incision and drainage S/P hysterectomy H/O thyroidectomy History of cholecystectomy History of total hysterectomy History of thyroidectomy History of partial hysterectomy Social History household members: none Smoking Status: Current every day smoker tobacco type: cigarettes Tobacco: How many years used: 20 alcohol intake: never substance use type: does not use what type of physical activity do you participate in: none ROS ROS ED Constitutional Constitutional ED: Denies chills, fever(s) or weight loss Eyes Eyes: Denies change in vision or diplopia ENT ENT ED: Denies ear pain, rhinorrhea or sore throat Cardiovascular Cardiovascular: Denies chest pain, orthopnea, palpitations or racing heartbeat Respiratory/Chest Respiratory/Chest: Denies cough, dyspnea or orthopnea Gastrointestinal Gastrointestinal: Reports abdominal pain and nausea; Denies diarrhea or vomiting Genitourinary Genitourinary ED: Denies dysuria, hematuria or urinary frequency Musculoskeletal Musculoskeletal: Denies arthralgias or myalgias Integumentary Denies abscess or rash Neurologic Neurologic: Denies headache(s) or weakness Psychiatric Psychiatric: Denies anxiety, depression, suicidal ideation or suicidal thoughts Endocrine Endocrinology: Denies polydipsia, polyphagia or polyuria Allergic/Immunologic Allergic/Immunologic ED: Denies mouth swelling, tongue swelling or urticaria EXAM Physical Exam Const Vital Signs: 01/29/24 08:47 01/29/24 10:46 01/29/24 12:00 Temperature 96.9 F L Temperature Source Temporal Pulse Rate 101 H 73 Respiratory Rate 20 H Blood Pressure 119/93 H 106/78 124/86 H Blood Pressure Mean 101 87 98 Pulse Ox 100 Oxygen Delivery Method Room Air 01/29/24 12:16 Temperature 97.9 F Temperature Source Pulse Rate 73 Respiratory Rate 18 Blood Pressure 124/86 H Blood Pressure Mean 98 Pulse Ox 98 Oxygen Delivery Method Positive well nourished and well developed General Appearance ED: well developed and NAD HEENT Reports normocephalic, head/scalp atraumatic and moist mucous membranes Eyes PERRL and EOMs intact bilaterally Neck no lymphadenopathy, supple and no JVD Resp normal respiratory effort and clear to auscultation bilaterally Cardio regular rate, regular rhythm and no murmurs GI Palpation: soft and tender RLQ; Negative for guarding or rebound tenderness present Back/Spine no CVA tenderness and normal ROM Extremity normal to inspection General Extremety ED: Negative for edema General Extremity: Negative for edema Neuro oriented x3 and CN's II-XII intact bilaterally Sensorium / Orientation: alert Motor Exam: strength 5/5 throughout Psych mental status grossly normal Mood & Affect: Negative for depressed or tearful Skin no rashes or lesions noted and no wounds MDM MDM MDM Narrative Medical decision making narrative: Differential diagnosis includes but not limited to colitis hernia bowel obstruction UTI kidney stone Basic blood work is obtained essentially negative including LFTs and urinalysis. CT of the abdomen pelvis was obtained. I do not see any findings on the right side to definitively explain her pain that there does appear to be some increased stool in that right lower hemicolon. Is also noted to have a complex ovarian cyst on the left. In speaking with her she has not had a full hysterectomy. She states that she has had problems with cyst on the left ovary in the past. She is not having any pain or discomfort in this area. While I do not have readily available ultrasound at this time I do not feel that we need to emergently call them in as her pain is not in this area. She is going to call her merchandising stock associate to arrange follow-up and further outpatient evaluation of this. She will drink a bottle of magnesium citrate to see if we can help move some of the stool through and see if that makes an improvement in her pain. Patient to return if worsening or concerns History & Record Review Discussion w/independent historian: Patient Lab Data Attestation: I reviewed the patient's lab results. Labs: Laboratory Results - last 24 hr 01/29/24 01/29/24 09:15 09:34 WBC 8.3 RBC 4.82 Hgb 14.2 Hct 42.8 MCV 88.8 MCH 29.5 MCHC 33.2 RDW Std Deviation 40.4 RDW Coeff of Jenn 12.3 Plt Count 328 MPV 10.7 Immature Gran % (Auto) 0.100 Neut % (Auto) 47.5 Lymph % (Auto) 41.6 H Cloud % (Auto) 7.2 Eos % (Auto) 2.6 Baso % (Auto) 1.0 Absolute Neuts (auto) 4.0 Absolute Lymphs (auto) 3.46 Nucleated RBC % 0 Sodium 139 Potassium 3.7 Chloride 105 Carbon Dioxide 29.0 Anion Gap 6 BUN 17 Creatinine 0.95 Estim Creat Clear Calc 91.75 Est GFR (MDRD) Af Amer 84 Est GFR (MDRD) Non-Af 69 BUN/Creatinine Ratio 18.0 Glucose 101 Calcium 8.4 L Total Bilirubin 0.50 Direct Bilirubin 0.13 AST 13 L ALT 23 Alkaline Phosphatase 49 Total Protein 7.0 Albumin 3.7 Globulin 3.3 Lipase 22 Urine Color Yellow Urine Clarity Clear Urine pH 7.0 Ur Specific [place] 1.010 Urine Protein 15 H Urine Glucose (UA) Normal Urine Ketones Negative Urine Occult Blood 25 H Urine Nitrite Negative Urine Bilirubin Negative Urine Urobilinogen 1 H Ur Leukocyte Esterase 25 H Urine RBC 0 SEEN Urine WBC 0 SEEN Ur Squamous Epith Cells 0-5 SEEN Amorphous Sediment 2+ Urine Bacteria 0 SEEN Urine Mucus 0 SEEN Radiography Diagnostic Testing: Clinical Impression(s) from Imaging Studies Abdomen/Pelvis CT 01/29/24 10:11 IMPRESSION: 1 mm nonobstructing left renal calculus. 5.4 cm septated left adnexal cystic lesion or hydrosalpinx. Recommend correlation with pelvic Doppler ultrasound. Electronically Signed: Sylvie Fong MD at 11:13 EDT Reading Location ID and State: [facility] / [place] Tel , Service support , Discharge Plan Triage Chief Complaint: Abd Pain ED Provider: Marcelo Loza Dx/Rx/DC Orders Clinical Impression: Abdominal pain, Ovarian cyst Instructions: Abdominal Pain Prescriptions: No Action cholecalciferol (vitamin D3) 125 mcg (5,000 unit) capsule 125 mcg PO DAILY dicyclomine 20 mg tablet 20 mg PO TID levothyroxine 175 mcg tablet 150 mcg PO DAILY doxycycline monohydrate 100 mg capsule 100 mg PO BID Qty: 20 0RF vitamin [id number] acid 1,000-400 mcg Tablet, Sublingual 1 tab SUBLINGUAL QODAY tizanidine 4 mg tablet 4 mg PO BID PRN Rx Instructions: TAKE 1 TABLET BY MOUTH THREE TIMES DAILY NEEDED MUSCLE spasticity levocetirizine 5 mg tablet See Rx Instructions .ROUTE .COMPLEX Qty: 90 1RF Dose Instruction: TAKE 1 TABLET BY MOUTH EVERY EVENING NEEDED FOR ALLERGY SYMPTOMS Rx Instructions: TAKE 1 TABLET BY MOUTH EVERY EVENING NEEDED FOR ALLERGY SYMPTOMS calcitriol 0.5 mcg capsule 1.5 mcg PO QHS Qty: 90 2RF pantoprazole 40 mg tablet,delayed release (DR/EC) 40 mg PO DAILY Qty: 30 3RF duloxetine 20 mg capsule,delayed release(DR/EC) 20 mg PO DAILY Qty: 30 1RF Primary Care Provider: Charli Austin NP Referrals: Charli Austin NP, SOFTWARE LICENSING SPECIALIST-[facility] [Primary Care Provider] - As Needed Activity Restrictions/Additional Instructions: I would recommend drinking a bottle of magnesium citrate. See if some of the stool that I mentioned on the right lower colon moves through and improved your symptoms. She developed worsening pain fever I recommend returning for evaluation. I also spoke to you about a cystic structure near where the left ovary is. I do recommend you calling your merchandising stock associate and see if they can see you in early follow-up for pelvic ultrasound and repeat examination. Certainly if you develop pain in this area before that appointment I would want you to return to emergency. Print Language: Armenian Disposition Disposition: Home, Self Care Discharge Date/Time: 01/29/24 12:31
[2024-01-29] MEDS: Ketorolac 30 MG/ML Syringe IV (09:26)
[2024-01-29 09:39] LABS: Bacteria 0 SEEN /hpf (None Seen); Mucous, Urine 0 SEEN /hpf (<or=2+); Red Blood Cells-Urine 0 SEEN /hpf (0-5); White Blood Cells 0 SEEN /hpf (0-5)
[2024-01-29 09:39] LABS: Absolute Lymphocyte Count 3.46 X10^3/uL (0.83-4.51); Basophil# 0.08 X10^3/uL; Eosinophil# 0.22 X10^3/uL; Eosinophils% 2.6 % (0-5); Hematocrit 42.8 % (37-47); Hemoglobin 14.2 g/dL (12.0-15.0); Lymphocyte # 3.46 X10^3/ul (0.83-4.51); Lymphocyte % 41.6 % (19-41); Mean Corp Hgb Conc 33.2 g/dL (32-36); Mean Corpuscular Hgb 29.5 pg (27.0-32.0); Mean Corpuscular Volume 88.8 fL (81-99); Mean Platelet Vol. 10.7 fl (6.2-12.0); Monocyte% 7.2 % (0-10); NRBC Flagged by Analyzer 0 % (0-5); Neutrophil # 3.95 X10^3/uL (2.7-7.7); Neutrophil % 47.5 % (47-70); Platelet Count 328 K/mm3 (150-450); RBC Distribution Width CV 12.3 % (11.6-14.6); RBC Distribution Width SD 40.4 fl (35.1-43.9); Red Blood Count 4.82 M/mm3 (4.2-5.4); White Blood Count 8.3 K/mm3 (4.4-11.0)
[2024-01-29 09:41] LABS: AST(SGOT) 13 U/L (15-37); Alanine Aminotransfer ALT/SGPT 23 U/L (13-56); Albumin, Serum 3.7 g/dL (3.2-5.0); Alkaline Phosphatase 49 U/L (45-117); Anion Gap 6 (5-15); BUN 17 mg/dL (7-18); Bilirubin, Direct 0.13 mg/dL (0.00-0.30); Calcium,Total 8.4 mg/dL (8.5-10.1); Chloride 105 mmol/L (98-107); Creatinine, Serum 0.95 mg/dL (0.55-1.02); EST Glomerular Filtration Rate 69 mL/min (>60); Est Glom Filt Rate - Afr Amer 84 mL/min (>60); Estimated Creatinine Clearance 91.75 ml/min; Globulin 3.3 g/dL (2.2-4.2); Glucose 101 mg/dL (74-106); Lipase 22 U/L (13-75); Potassium 3.7 mmol/L (3.5-5.1); Sodium Level 139 mmol/L (136-145)
[2024-01-29 09:41] LABS: Color, Urine Yellow (Yellow); Glucose, Dipstick Normal (Normal); Ketone-Dipstick Negative (Negative); Leukocyte Esterase-Dipstick 25 /ul (Negative); Nitrite-Dipstick Negative (Negative); Occult Blood-Urine 25 /ul (Negative); Protein-Dipstick 15 mg/dl (Negative); Urine Bilirubin Dipstick Negative (Negative); Urine Clarity Clear (Clear); Urine Urobilinogen 1 mg/dl (Normal)
[2024-01-29 09:53] LABS: Squamous Epithelial Cells - UA 0-5 SEEN /hpf (5-10)
[2024-01-29 09:54] LABS: Amorphous Sediment 2+
--- NOTE | 2024-01-29 10:11 | CT_ITS ---
HISTORY: abdominal pain. TECHNIQUE: Helically acquired images were obtained of the abdomen and pelvis without oral or IV contrast. A radiation dose optimization technique was used for this scan. 462 images. COMPARISON: 03/15/2023 FINDINGS: LOWER CHEST: Lung bases clear. BOWEL: Bowel nondilated. Appendectomy. No focal pericolonic inflammatory change. PERITONEUM: No significant free fluid. LIVER: Unremarkable. GALLBLADDER/BILIARY TREE: Cholecystectomy. SPLEEN/PANCREAS/ADRENAL GLANDS: Nonenlarged. KIDNEYS AND URETERS: 1 mm left upper pole calculus without hydronephrosis. No obstructing ureteral calculus on either side. VESSELS: No abdominal aortic aneurysm. PELVIC ORGANS: Absent uterus. Tubular 3.9 x 5.4 cm septated left adnexal cystic lesion. ABDOMINAL WALL: Tiny fat-containing of local hernia. BONES: Intact. Chronic intervertebral disc space narrowing of L5/S1. CT/Abdomen/Pelvis without Cont IMPRESSION: 1 mm nonobstructing left renal calculus. 5.4 cm septated left adnexal cystic lesion or hydrosalpinx. Recommend correlation with pelvic Doppler ultrasound. Electronically Signed: Sylvie Fong MD at 11:13 EDT ,
[2024-01-29 10:46] VITALS: BP 106/78
[2024-01-29 12:00] VITALS: BP 124/86; PULSE 73
[2024-01-29 12:16] VITALS: BP 124/86; PULSE 73; RESP 18; TEMP 36.6; O2SAT 98
== END 2024-01-29 12:31 | disposition home or self-care (01) ==
PROVIDERS: Emergency Provider Emergency Medicine; PCP Nurse Practitioner Family; Visit Provider Emergency Medicine
DX: R10.9 Unspecified abdominal pain (principal); N83.202 Unspecified ovarian cyst, left side; F17.210 Nicotine dependence, cigarettes, uncomplicated; Z86.16 Personal history of COVID-19
CPT/HCPCS: 74176; 80048; 80076; 81001; 83690; 85025; 96374; 96376; 99283; A4216

== ENCOUNTER → 2024-05-01 | Outpatient (CLI) | payer MEDICAID, SELFPAY ==
[2024-05-01 12:41] LABS: Absolute Lymphocyte Count 3.82 X10^3/uL (0.83-4.51); Basophil# 0.09 X10^3/uL; Eosinophil# 0.24 X10^3/uL; Eosinophils% 2.7 % (0-5); Hematocrit 40.9 % (37-47); Lymphocyte # 3.82 X10^3/ul (0.83-4.51); Lymphocyte % 43.7 % (19-41); Mean Corp Hgb Conc 34.2 g/dL (32-36); Mean Corpuscular Hgb 30.3 pg (27.0-32.0); Mean Corpuscular Volume 88.5 fL (81-99); Mean Platelet Vol. 11.3 fl (6.2-12.0); Monocyte# 0.56 X10^3/uL; Monocyte% 6.4 % (0-10); NRBC Flagged by Analyzer 0 % (0-5); Neutrophil # 4.02 X10^3/uL (2.7-7.7); Platelet Count 367 K/mm3 (150-450); RBC Distribution Width CV 12.4 % (11.6-14.6); RBC Distribution Width SD 40.1 fl (35.1-43.9); Red Blood Count 4.62 M/mm3 (4.2-5.4); White Blood Count 8.8 K/mm3 (4.4-11.0)
[2024-05-01 12:46] LABS: Erythrocyte Sedimentation Rate 3 mm/hr (0-30)
[2024-05-01 12:54] LABS: Vitamin B12 536 pg/mL (211-911)
[2024-05-01 13:00] LABS: ALB/GLOB Ratio 1.1 RATIO (0.9-2.4); AST(SGOT) 22 U/L (15-37); Alanine Aminotransfer ALT/SGPT 35 U/L (13-56); Albumin, Serum 3.9 g/dL (3.2-5.0); Alkaline Phosphatase 51 U/L (45-117); Amylase 53 U/L (25-115); Anion Gap 6 (5-15); BUN 13 mg/dL (7-18); BUN/Creat Ratio 13.4 RATIO (10-20); CRP < 2.90 mg/L (0.0-3.0); Calcium,Total 8.5 mg/dL (8.5-10.1); Chloride 104 mmol/L (98-107); Creatinine, Serum 0.97 mg/dL (0.55-1.02); EST Glomerular Filtration Rate 67 mL/min (>60); Est Glom Filt Rate - Afr Amer 81 mL/min (>60); Ferritin 29 ng/mL (8-252); Globulin 3.5 g/dL (2.2-4.2); Glucose 85 mg/dL (74-106); Iron Binding Capacity,Total 326 ug/dL (250-450); LDH 169 U/L (84-246); Lipase 37 U/L (13-75); Potassium 3.5 mmol/L (3.5-5.1); Protein, Total 7.4 g/dL (6.4-8.2); Sodium Level 137 mmol/L (136-145)
[2024-05-04 23:07] LABS: Alpha-1-Globulins 0.3 g/dL (0.0-0.4); Alpha-2-Globulins 0.9 g/dL (0.4-1.0); Endomysial Antibody IgA Negative (Negative); Gamma Globulin 0.8 g/dL (0.4-1.8); Gastrin, Serum 143 pg/mL (0-115); Immunoglobulin A 88 mg/dL (87-352); Immunoglobulin E 79 IU/mL (6-495); Immunoglobulin G 799 mg/dL (586-1602); Immunoglobulin M 55 mg/dL (26-217); t-Transglutaminase IgA <2 U/mL (0-3)
== END | disposition home or self-care (01) ==
LOC: LAB 11:33
PROVIDERS: PCP Nurse Practitioner Family; Referring Provider Internal Medicine Gastroenterology; Visit Provider Internal Medicine Gastroenterology
DX: K58.9 Irritable bowel syndrome, unspecified (principal)
CPT/HCPCS: 36415; 80053; 82150; 82607; 82728; 82784; 82785; 82941; 83516; 83550; 83615; 83690; 84165; 84443; 85025; 85652; 86140; 86255; 86334

== ENCOUNTER 2024-05-11 10:53 | Day surgery (SDC) | payer MEDICAID, SELFPAY ==
--- NOTE | 2024-05-09 14:16 | PAT.ANESEVAL ---
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 When Was Last Pacemaker Check QUESTION #4 FULL TEXT: You/Your Family Experience fever (hyperthermia) with Anesthesia Last Oral Intake Last Oral intake: Last Oral Intake NPO since Meds taken in AM with sips of water? 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 PONV - machine operator hop picker: PONV - machine operator hop picker Female Yes 05/09/24 13:14 HX of Motion Sickness No 05/09/24 13:14 HX of N/V After Surgery No 05/09/24 13:14 Non-Smoker No 05/09/24 13:14 Duration of Surgery greater No 05/09/24 13:14 than 60 minutes Number of Risk Factors 1 05/09/24 13:14 PONV Score Low Risk 05/09/24 13:14 Height & Weight Height & Weight: Anesthesia: Height & Weight Height 5 ft 9 in 01/29/24 08:47 Respiratory Assessment Respiratory Assessment - machine operator hop picker: Respiratory Tract Infection Hx - machine operator hop picker Hx Respiratory Tract Infection No 05/09/24 13:14 STOP Sleep Apnea STOP Sleep Apnea - machine operator hop picker: STOP Sleep Apnea - machine operator hop picker Hx Hypertension No 05/09/24 13:14 Hx Sleep Apnea No 05/09/24 13:14 CPAP No 05/09/24 13:14 BIPAP No 05/09/24 13:14 Do you snore loudly (louder No 05/09/24 13:14 than talking or can be heard Do you often feel tired/ No 05/09/24 13:14 fatigued/ sleepy during daytime? Has anyone observed you stop No 05/09/24 13:14 breathing during sleep? STOP Results Negative 05/09/24 13:14 QUESTION #5 FULL TEXT : Do you snore loudly (louder than talking or can be heard through closed doors)? 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 Specify any problems Hx of Preganancy in last 3 N/A 05/09/24 13:14 Months Nurse Filling Out Transfusion NBUCHER 05/09/24 13:14 & Questions: Date: 05/09/24 05/09/24 13:14 Time: 13:15 05/09/24 13:14 Patient unable to answer at this time (ie. confused, unrespo /Reproduction History /Reproductive History - machine operator hop picker: /Reproductive Hx- machine operator hop picker Hx Now No 05/09/24 13:14 Gestational Age (in weeks): EDC: Hx Hx Para Hx Section SAB No 05/09/24 13:14 PFSH Medical History (Updated 05/09/24 @ 13:19 by Lupe Estrada) Cellulitis of right thigh Normal stress echocardiogram Acute sinusitis, unspecified Urinary tract infection with hematuria Radiculopathy Chronic back pain Preventative health care Anterior neck pain Other acute postprocedural pain Elevated lipase Low vitamin B12 level Low calcium levels History of stress test PTSD (post-traumatic stress disorder) Paresthesia Depression Anxiety Hypoglycemia Fatty liver Back pain Syncope History of hiatal hernia Smoker Shortness of breath on exertion Leg cramps History of pain when walking Cardiology follow-up encounter Chest pain Right groin pain Right ovarian cyst Urgency of urination Duodenal mass Epigastric pain Kidney stones Right lower quadrant pain Abnormal tumor markers Hepatomegaly Right renal stone Renal colic on right side History of Holter monitoring Right flank pain Suprapubic discomfort Urinary frequency Hidradenitis suppurativa Abscess of left axilla Urinary tract infection Ureteral calculus, right Irregular heart beat Abnormal urinalysis Diverticulosis Bloating Tenesmus (rectal) Unintentional weight loss Post-surgical hypoparathyroidism Diarrhea Abdominal pain Wears dentures History of COVID-19 Injury of head and neck Asthma Shortness of breath on exertion Leg cramps Hx of cystic acne Bradycardia Intermittent palpitations COVID-19 (03/17/21) Upper respiratory infection Vertigo Chronic constipation Pelvic pain Annular tear of lumbar disc Degenerative disc disease at L5-S1 level Generalized anxiety disorder with panic attacks Postoperative hypothyroidism Tinea pedis of both feet Hypokalemia Hypocalcemia Polycystic ovaries Hypothyroidism Carpal tunnel syndrome H/O breast lump Seasonal allergies Tobacco use Hypocalcemia syndrome TMJ (temporomandibular joint syndrome) Arthritis Home Medications ?Medication ?Instructions ?Recorded ?Last Taken ?Type cholecalciferol (vitamin D3) 125 125 mcg PO DAILY 07/01/22 Unknown History mcg (5,000 unit) capsule vitamin B12 1,000 mcg-folic acid 1 tab sublingual QODAY 07/29/22 Unknown History 400 mcg sublingual tablet dicyclomine 20 mg tablet 20 mg PO TID PRN abdominal pain 11/03/22 Unknown History tizanidine 4 mg tablet 4 mg PO BID PRN PAIN 12/03/22 12/08/22 History calcitriol 0.5 mcg capsule 1.5 mcg (3 x 0.5 mcg) PO QHS 04/13/23 Unknown Rx calcium #90 caps levothyroxine 175 mcg tablet 150 mcg PO DAILY 10/27/23 Unknown History doxycycline monohydrate 100 mg 100 mg PO BID #20 caps 11/07/23 Unknown Rx capsule pantoprazole 40 mg tablet,delayed 40 mg PO DAILY #30 tabs 11/30/23 Unknown Rx release duloxetine 20 mg capsule,delayed 20 mg PO DAILY #30 caps 02/28/24 Unknown Rx release Allergy/AdvReac Type Severity Reaction Status Date / Time codeine Allergy Mild Itching Verified 05/09/24 13:11 fluoxetine (From Prozac) AdvReac EDWIN Verified 05/09/24 13:11 naproxen (From Naprosyn) AdvReac NOSEBLEED Verified 05/09/24 13:11 Family History Father Alcoholism Mother Anemia Depression Hypertension Hyperlipemia Diabetes Grandfather Diabetes Myocardial infarction Grandmother Breast cancer Diabetes Surgical History History of esophagogastroduodenoscopy (EGD) History of bilateral salpingo-oophorectomy S/P appendectomy History of appendectomy History of esophagogastroduodenoscopy (EGD) History of incision and drainage S/P hysterectomy H/O thyroidectomy History of cholecystectomy History of total hysterectomy History of thyroidectomy History of partial hysterectomy Social History household members: none Smoking Status: Current every day smoker tobacco type: cigarettes Tobacco: How many years used: 20 alcohol intake: never substance use type: does not use what type of physical activity do you participate in: none Audit: Pertinent Findings Pertinent Findings EKG Perinent findings: NSR. Tele from 23L largely normal with frequent PVCs Stress test pertinent findings: Normal function with good anerobic capacity Echo (EF%) pertinent findings: 60 Consult pertinent findings: Functionally optimized Recommendation Anesthesia Recommendation Anesthesia recommendation: OPTIMIZED for anesthesia
[2024-05-11] VITALS (7 sets, daily range): BP systolic 94–116; BP diastolic 67–87; PULSE 62–79; RESP 14–18; TEMP 36.2–36.8; O2SAT 95–100; BMI 27.2
--- NOTE | 2024-05-11 11:20 | PCM.PRE.AN2 ---
ASA Classification* ASA Classification ASA Classification: 2 Assessment & Plan Anesthesia* Anesthesia Assessment Anesthesia Assessment: Discussed sedation and/or anesthesia options, risks, benefits, and alternatives with patient/parents/legal guardian/POA. Questions invited. The patient/parents/legal guardian/POA seems to understand and agrees to proceed with anesthesia plan. Reviewed the physical assessment, medical history, allergy history and patient home medications list prior to surgery/procedure/anesthetic and documented any changes. Performed airway and anesthesia risk assessments. Anesthesia Type Anesthesia Type: MAC Anesthesia Focused Assessment* Airway Assessment Mouth opens: >3 cm Mallampati Score: II Focused Labs Anesthesia Preop lab: CBC WBC 8.8 K/mm3 (4.4-11.0) 05/01/24 11:43 05/01/24 RBC 4.62 M/mm3 (4.2-5.4) 05/01/24 11:43 05/01/24 Hgb 14.0 g/dL (12.0-15.0) 05/01/24 11:43 05/01/24 Hct 40.9 % (37-47) 05/01/24 11:43 05/01/24 Plt Count 367 K/mm3 (150-450) 05/01/24 11:43 05/01/24 CHEMISTRY Potassium 3.5 mmol/L (3.5-5.1) 05/01/24 11:43 05/01/24 Sodium 137 mmol/L (136-145) 05/01/24 11:43 05/01/24 Magnesium 1.9 mg/dL (1.6-2.6) 04/30/21 09:00 04/30/21 Phosphorus 3.7 mg/dL (2.5-4.9) 02/28/19 08:51 02/28/19 BUN 13 mg/dL (7-18) 05/01/24 11:43 05/01/24 Creatinine 0.97 mg/dL (0.55-1.02) 05/01/24 11:43 05/01/24 Glucose 85 mg/dL (74-106) 05/01/24 11:43 05/01/24 POC Glucose 132 mg/dL (70-110) H 01/15/14 16:04 01/15/14 TSH 7.690 uIU/mL (0.358-3.740) H 05/01/24 11:43 05/01/24 COAG PT 12.8 SECONDS (11.7-14.9) 04/16/22 18:00 04/16/22 HCG, Quant 1367 mIU/mL (<9 non-preg) H 01/07/13 20:00 01/07/13 Urine Test Negative Negative 01/21/21 12:05 01/21/21 Pre-Assessment Diagnosis/Proposed Procedure Planned Operative Procedure(s): EGD, CSCOPE Anesthesia History 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 When Was Last Pacemaker Check QUESTION #4 FULL TEXT: You/Your Family Experience fever (hyperthermia) with Anesthesia Last Oral Intake Last Oral intake: Last Oral Intake NPO since Meds taken in AM with sips of water? 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 PONV - sed special education teacher: PONV - sed special education teacher Female Yes 05/09/24 13:14 HX of Motion Sickness No 05/09/24 13:14 HX of N/V After Surgery No 05/09/24 13:14 Non-Smoker No 05/09/24 13:14 Duration of Surgery greater No 05/09/24 13:14 than 60 minutes Number of Risk Factors 1 05/09/24 13:14 PONV Score Low Risk 05/09/24 13:14 Height & Weight Height & Weight: Anesthesia: Height & Weight Height 5 ft 9 in 01/29/24 08:47 Respiratory Assessment Respiratory Assessment - sed special education teacher: Respiratory Tract Infection Hx - sed special education teacher Hx Respiratory Tract Infection No 05/09/24 13:14 STOP Sleep Apnea STOP Sleep Apnea - sed special education teacher: STOP Sleep Apnea - sed special education teacher Hx Hypertension No 05/09/24 13:14 Hx Sleep Apnea No 05/09/24 13:14 CPAP No 05/09/24 13:14 BIPAP No 05/09/24 13:14 Do you snore loudly (louder No 05/09/24 13:14 than talking or can be heard Do you often feel tired/ No 05/09/24 13:14 fatigued/ sleepy during daytime? Has anyone observed you stop No 05/09/24 13:14 breathing during sleep? STOP Results Negative 05/09/24 13:14 QUESTION #5 FULL TEXT : Do you snore loudly (louder than talking or can be heard through closed doors)? Tobacco Use History Tobacco Use History - sed special education teacher: Tobacco Use History - sed special education teacher Tobacco Use Cigarettes 03/11/23 08:46 Smoking Status Current every day smoker 05/09/24 13:14 Hx Tobacco Use Yes 05/09/24 13:14 Years Smoking Packs Smoked per Day Smoking Cessation Date was within the last 15 years Hx Smoking Cessation Date Hx Smoking Cessation No 05/09/24 13:14 Counseling Hematologic Medial History Hematologic Hx - sed special education teacher: Hematologic Medical Hx - senior digital designer Hx of Blood Transfusion No 05/09/24 13:14 Hx of Transfusion in last 3 No 05/09/24 13:14 Months Date of Last Transfusion (if within last 3 months) Ever experience any problems No 05/09/24 13:14 with transfusion(s)? Specify any problems Hx of Preganancy in last 3 N/A 05/09/24 13:14 Months Nurse Filling Out Transfusion NBUCHER 05/09/24 13:14 & Questions: Date: 05/09/24 05/09/24 13:14 Time: 13:15 05/09/24 13:14 Patient unable to answer at this time (ie. confused, unrespo /Reproduction History /Reproductive History - sed special education teacher: /Reproductive Hx- sed special education teacher Hx Now No 05/09/24 13:14 Gestational Age (in weeks): EDC: Hx Hx Para Hx Section SAB No 05/09/24 13:14 PFSH Medical History Cellulitis of right thigh Normal stress echocardiogram Acute sinusitis, unspecified Urinary tract infection with hematuria Radiculopathy Chronic back pain Preventative health care Anterior neck pain Other acute postprocedural pain Elevated lipase Low vitamin B12 level Low calcium levels History of stress test PTSD (post-traumatic stress disorder) Paresthesia Depression Anxiety Hypoglycemia Fatty liver Back pain Syncope History of hiatal hernia Smoker Shortness of breath on exertion Leg cramps History of pain when walking Cardiology follow-up encounter Chest pain Right groin pain Right ovarian cyst Urgency of urination Duodenal mass Epigastric pain Kidney stones Right lower quadrant pain Abnormal tumor markers Hepatomegaly Right renal stone Renal colic on right side History of Holter monitoring Right flank pain Suprapubic discomfort Urinary frequency Hidradenitis suppurativa Abscess of left axilla Urinary tract infection Ureteral calculus, right Irregular heart beat Abnormal urinalysis Diverticulosis Bloating Tenesmus (rectal) Unintentional weight loss Post-surgical hypoparathyroidism Diarrhea Abdominal pain Wears dentures History of COVID-19 Injury of head and neck Asthma Shortness of breath on exertion Leg cramps Hx of cystic acne Bradycardia Intermittent palpitations COVID-19 (03/17/21) Upper respiratory infection Vertigo Chronic constipation Pelvic pain Annular tear of lumbar disc Degenerative disc disease at L5-S1 level Generalized anxiety disorder with panic attacks Postoperative hypothyroidism Tinea pedis of both feet Hypokalemia Hypocalcemia Polycystic ovaries Hypothyroidism Carpal tunnel syndrome H/O breast lump Seasonal allergies Tobacco use Hypocalcemia syndrome TMJ (temporomandibular joint syndrome) Arthritis Home Medications ?Medication ?Instructions ?Recorded ?Last Taken ?Type cholecalciferol (vitamin D3) 125 125 mcg PO DAILY 07/01/22 Unknown History mcg (5,000 unit) capsule vitamin B12 1,000 mcg-folic acid 1 tab sublingual QODAY 07/29/22 Unknown History 400 mcg sublingual tablet dicyclomine 20 mg tablet 20 mg PO TID PRN abdominal pain 11/03/22 Unknown History tizanidine 4 mg tablet 4 mg PO BID PRN PAIN 12/03/22 12/08/22 History calcitriol 0.5 mcg capsule 1.5 mcg (3 x 0.5 mcg) PO QHS 04/13/23 Unknown Rx calcium #90 caps levothyroxine 175 mcg tablet 150 mcg PO DAILY 10/27/23 05/11/24 05:00 History doxycycline monohydrate 100 mg 100 mg PO BID #20 caps 11/07/23 Unknown Rx capsule pantoprazole 40 mg tablet,delayed 40 mg PO DAILY #30 tabs 11/30/23 Unknown Rx release duloxetine 20 mg capsule,delayed 20 mg PO DAILY #30 caps 02/28/24 Unknown Rx release Allergy/AdvReac Type Severity Reaction Status Date / Time codeine Allergy Mild Itching Verified 05/11/24 11:16 fluoxetine (From Prozac) AdvReac EDWIN Verified 05/11/24 11:16 naproxen (From Naprosyn) AdvReac NOSEBLEED Verified 05/11/24 11:16 Family History Father Alcoholism Mother Anemia Depression Hypertension Hyperlipemia Diabetes Grandfather Diabetes Myocardial infarction Grandmother Breast cancer Diabetes Surgical History History of esophagogastroduodenoscopy (EGD) History of bilateral salpingo-oophorectomy S/P appendectomy History of appendectomy History of esophagogastroduodenoscopy (EGD) History of incision and drainage S/P hysterectomy H/O thyroidectomy History of cholecystectomy History of total hysterectomy History of thyroidectomy History of partial hysterectomy Social History household members: none Smoking Status: Current every day smoker tobacco type: cigarettes Tobacco: How many years used: 20 alcohol intake: never substance use type: does not use what type of physical activity do you participate in: none Review of Systems (Anesthesia) ROS Narrative System reviewed and no additional complaints, except as documented.
--- NOTE | 2024-05-11 12:00 | EGD_PTH ---
PATIENT: AMY VILLEDA LOC: EN U#:[id number] AGE/SX: 38/F ROOM: RE05/11/[address]: Dr. Jules Rene DO : 1985 BED: DIS: 05/11/2024 SPEC #: [id number] RECD: 05/11/24 14:08 STATUS: NICOLE RIAN #: [id number] MERLE: 05/11/24 12:[address]: Jules Rene DEPT: SURGICAL PATHOLOGY RECD BY: Cathy Dobson ENTERED: 05/14/24 08:33 SP TYPE: EGD BIOPSY OT DR: Charli Austin, INTERACTIVE ART DIRECTOR-C Tissues: A - Duodenum, NOS B - Gastric mucous membrane C - Ileum, NOS D - COLON BIOPSY Procedures: Surgery Specimen Level IV HEADER OPERATION: Colonoscopy with biopsy, EGD with biopsy PRE-OP DIAGNOSIS: Irritable bowel syndrome, gastric ulcer, dysphagia, unspecified, gastric intestinal metaplasia TISSUE SUBMITTED: A- Duodenum biopsy, B- Gastric body biopsy, C- Terminal ileum biopsy, D- Random colon biopsy MICROSCOPIC DIAGNOSIS A. Duodenum, biopsy: Fragments of duodenal mucosa, no pathologic diagnosis. B. Gastric body, biopsy: Mild gastritis. See microscopic description and comment. C. Terminal ileum, biopsy: A fragment of small intestinal mucosa, no pathologic diagnosis. D. Colon, random biopsy: Fragments of colonic mucosa, no pathologic diagnosis. 05/15/2024 COMMENT B. The results of immunohistochemistry for Helicobacter pylori will be reported separately ([id number]). MICROSCOPIC DESCRIPTION Slides are reviewed. B. The specimen shows fragments of gastric mucosa with chronic inflammatory cell infiltrates in the lamina propria consisting of lymphocytes and plasma cells, consistent with mild chronic gastritis. GROSS DESCRIPTION A. Received in fixative is one container labeled with the patient's name and designated Duodenum biopsy. The specimen consists of two irregular fragments of light whyte soft tissue that in aggregate measure 1.2 x 0.3 x 0.2 cm. The specimen is totally submitted in one cassette. B. Received in fixative is one container labeled with the patient's name and designated Gastric body biopsy. The specimen consists of two irregular fragments of light whyte soft tissue that in aggregate measure 0.9 x 0.3 x 0.2 cm. The specimen is totally submitted in one cassette. C. Received in fixative is one container labeled with the patient's name and designated Terminal ileum biopsy. The specimen consists of one irregular fragment of light whyte soft tissue that measures 0.9 x 0.3 x 0.2 cm. The specimen is totally submitted in one cassette. D. Received in fixative is one container labeled with the patient's name and designated Random colon biopsy. The specimen consists of multiple irregular fragments of light whyte soft tissue that in aggregate measure 2.3 x 0.3 x 0.2 cm. The specimen is totally submitted in one cassette. 05/14/2024 TC:3 CPT:46748s2
--- NOTE | 2024-05-11 12:00 | IMM_PTH ---
PATIENT: AMY VILLEDA LOC: EN U#:[id number] AGE/SX: 38/F ROOM: RE05/11/[address]: Dr. Jules Rene DO : 1985 BED: DIS: 05/11/2024 SPEC #: [id number] RECD: 05/14/24 08:43 STATUS: NICOLE RELucy #: [id number] MERLE: 05/11/24 12:[address]: Jules Rene DEPT: IMMUNOHISTOCHEMISTRY RECD BY: Bradford Meza ENTERED: 05/14/24 08:43 SP TYPE: IMMUNO OTHR DR: Charli Austin, SUPERVISOR PLASTERING-C Tissues: B - Gastric mucous membrane Procedures: H Pylori (initial) PHYSICIAN & INSTITUTION [place] [id number] SPECIMEN INFORMATION: Tissue Source: B- Gastric body biopsy Clinical Info: Irritable bowel syndrome, gastric ulcer, dysphagia, unspecified, gastric intestinal metaplasia Specimen Number: [id number] CPT code: 78950 METHODOLOGY: Deparaffinized sections of prefer/formalin-fixed tissue or PAP/DQ stained slides are incubated with monoclonal/polyclonal antibodies/oligonucleotide probes. Localization is made via biotin free immunoperoxidase method. Appropriate controls are performed and reacted as expected. Results on target cell population are indicated in the following table: RESULTS: ANTIBODY / CLONE RESULT Block B H Pylori (polyclonal) negative These tests were developed and their performance characteristics determined by [facility]. They may not have been cleared or approved by the [place]. Food and Drug Administration. The FDA has determined that such clearance or approval is not necessary. The above immunohistochemical/dualISH markers are ordered and reviewed by the Pathologist. INTERPRETATION: B. Gastric body, biopsy: Negative for Helicobacter pylori organisms. 05/15/2024
--- NOTE | 2024-05-11 12:20 | HP.PCM_ITS ---
HPI - General General Date of Admission: 05/11/24 Date of Service: 05/11/24 Chief Complaint: Abdominal pain and change in bowels HPI Narrative AMY VILLEDA, is a 38 F who presents to endoscopy today to evaluate her abdominal pain and or change of bowel movements. 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 *BGI established 06.16.21 with constipation, abdominal bloating/pain and a history of diverticulosis. Constipation present several years prior with use of Dulcolax to promote BM. EGD and colonoscopy with [facility] found hiatal hernia and hemorrhoids. Intermittent RUQ pain began with worsening in s/p cholecystectomy performed by Dr. Rob. Following this she had a resolution of constipation and nausea. Stools then watery or soft with tenesmus, urgency and lower abdominal cramping prior to BM and increased bloating postprandially with distention. Unintentional weight loss of 30lbs in the last five months also noted. ? Biochemical workup / CBC, CMP, lipase, T4, CRP, ESR, celiac and KATHI comp WNL. ? AST L12/ALTWNL/AP L41, TSH 11.60H (normal ) ? CT abd/pel 06.29.21 hydronephrosis and 4mm calculus ? stent placed 07.01.21. ? EGD and colonoscopy 10.06.21. EGD irregular Z-line 38 cm from incisors; congestive gastropathy; benign duodenal mass, metaplasia; chronic duodenitis. ? Colonoscopy perianal hemorrhoids; one 5mm TA polyp at splenic flexure; congested mucosa of RS, descending, transverse colons and cecum. ? Acute abdomen series 7.08.30 without acute or chronic abnormality. OV 7 ongoing abdominal pain RUQ/R mid abdomen and bloating can be related to food intake but this is not a rule. Nausea and belching has resolved. Weight loss has slowed; weight loss of 40lbs in the last six months. BM are normal; but continues to have tenesmus. Protonix caused her to feel fatigued; she has been using 1-2 TUMs each day and feels this helps with her indigestion feeling. ? Biochemical TOBIAS, CEA, CA19-9, ANCA, gastrin, LDH, globulin without pertinent abnormality. ? Stool calprotectin, elastase WNL ? Urine 5HIAA WNL ? US complete 11.05.21 hepatomegaly 17.2cm with fatty infiltration; increased echogenicity of pancreas. ? CT 11.25.21 hepatomegaly 26.1x16.7x13.2; renal calculi; diverticulosis; bilateral inguinal lymphadenopathy; prominent ovaries with adjacent stranding. OV 12.15.21 continues to have epigastric fullness, poor appetite, nausea, intermittent epigastric pain. Constipation has normalized with periodic loose stools with some urgency. Perform workup in relation to positive pancreaticobiliary carcinoma markers and increased pancreatic echogenicity. ? Biochemical HIV, CRP, ferritin, coagulation, ESR, AMA, hepatitis, ANOOP, AFP, ASM, ceruloplasmin, copper, haptoglobin, ammonia without pertinent abnormality. ? A1c H5.7 ? MRCP denied by insurance. ? Elastography 01.05.22 stiffness 6.3kPa [facility] ED 02.06.22 with RLQ pain with concern for appendicitis. [facility] consulted with emergent appendectomy performed, pathology positive for acute early appendicitis. ? CT abd/pel 02.06.22 hepatomegaly; fluid filled small bowel loops; early appendicitis inflammation; small umbilical hernia. OV 11.3.22 Reattempt MRCP. Hiren 145 mcg samples provided. Discuss NAFLD at a later time (FH mother had cirrhosis). ? MRCP denied by insurance. ? Upper GI SBFT 05.04.22 without acute/chronic finding. OV 05.10.22 dicyclomine is helpful with slowing of bowels and cramping. Some postprandial lose BM. HIDA 2.12.01 s/p cholecystectomy. Normal. MRCP 05.25.22 without acute/chronic finding. [facility] ED 06.24.22 with flank pain. Discharged without acute finding. CT abd/pel normal liver and pancreas. No acute/chronic findings. Gynecology surgery 08.05.22 to address ovarian cyst with pelvic pain. Adhesion of intestinal fat to left fallopian tube; small right ovarian cyst, hemorrhagic; left ovary adhesed to left pelvic sidewall without cyst; bilateral paratubal cysts; fallopian tube pathology focal hydrosalpinx. OV 09.03.22 continues to have abdominal spasms despite use of bentyl TID; BM daily to multiple times a day with incomplete evacuation with hard straining stools alternating with loose. Reports vasovagal response several time recently. OV 12.06.22 With use of bentyl TID she has had a reduction of abdominal spasms and urgency and loose stools, though these symptoms continue. Notes some foods (red sauces) exacerbate symptoms. Peanut butter toast/cereal/banana; fast food/crackers; high fat dinners; fatoumata brisk 20oz/day and water. ? EGD 12.08.22 oozing gastric ulcer, epinephrine; gastritis; duodenitis, Farooq gland hyperplasia. H.Pylori neg ? Start sucralfate, stopped due to blurred vision. Contact 12.27.22 she continues to be without sucralfate as she did not like how it made her feel. Advised there is not an alternative to this medication and she would need to pay particular attention to her diet and continue with PPI use. Contact 02.10.23 with ongoing upper abdominal discomfort and loose stools; repeat EGD and start colestipol. ? EGD 03.01.23 bilious fluid of stomach; gastritis; duodenitis, Farooq?s gland. H.Pylori neg OV 03.11.23 continues to have RUQ abdominal discomfort constantly; denies aggravating or alleviating factors, PO intake does not make a difference. BM pattern alternate between normal and loose. Smoking one PPD. Diet contains a lot of simple carbohydrates and fast food. abd/pelvis CT 12.08.31 Small fatty umbilical hernia. OV 724 pt reports continued daily abd pain and diarrhea. Pt denies blood in the stool. Pt continues with dicyclomine TID. abd/pelvis CT 01.29.24 1 mm nonobstructing left renal calculus. 5.4 cm septated left adnexal cystic lesion or hydrosalpinx. Recommend correlation with pelvic Doppler ultrasound. OV 05.01.24 pt reports continued symptoms of cramping pain under her right ribs and reports there is a new knot feeling near her bellybutton. Pt reports that her bowel habits have changed and she is having worsened alternating bowels. Pt reports worsened symptoms with hemorrhoids since March. [facility] Medical History Cellulitis of right thigh Normal stress echocardiogram Acute sinusitis, unspecified Urinary tract infection with hematuria Radiculopathy Chronic back pain Preventative health care Anterior neck pain Other acute postprocedural pain Elevated lipase Low vitamin B12 level Low calcium levels History of stress test PTSD (post-traumatic stress disorder) Paresthesia Depression Anxiety Hypoglycemia Fatty liver Back pain Syncope History of hiatal hernia Smoker Shortness of breath on exertion Leg cramps History of pain when walking Cardiology follow-up encounter Chest pain Right groin pain Right ovarian cyst Urgency of urination Duodenal mass Epigastric pain Kidney stones Right lower quadrant pain Abnormal tumor markers Hepatomegaly Right renal stone Renal colic on right side History of Holter monitoring Right flank pain Suprapubic discomfort Urinary frequency Hidradenitis suppurativa Abscess of left axilla Urinary tract infection Ureteral calculus, right Irregular heart beat Abnormal urinalysis Diverticulosis Bloating Tenesmus (rectal) Unintentional weight loss Post-surgical hypoparathyroidism Diarrhea Abdominal pain Wears dentures History of COVID-19 Injury of head and neck Asthma Shortness of breath on exertion Leg cramps Hx of cystic acne Bradycardia Intermittent palpitations COVID-19 (03/17/21) Upper respiratory infection Vertigo Chronic constipation Pelvic pain Annular tear of lumbar disc Degenerative disc disease at L5-S1 level Generalized anxiety disorder with panic attacks Postoperative hypothyroidism Tinea pedis of both feet Hypokalemia Hypocalcemia Polycystic ovaries Hypothyroidism Carpal tunnel syndrome H/O breast lump Seasonal allergies Tobacco use Hypocalcemia syndrome TMJ (temporomandibular joint syndrome) Arthritis Home Medications ?Medication ?Instructions ?Recorded ?Last Taken ?Type cholecalciferol (vitamin D3) 125 125 mcg PO DAILY 06/10 07/01 Unknown History mcg (5,000 unit) capsule vitamin B12 1,000 mcg-folic acid 1 tab sublingual QODA Y 07/29/22 Unknown History 400 mcg sublingual tablet dicyclomine 20 mg tablet 20 mg PO TID PRN abdominal p ain 11/03/22 Unknown History tizanidine 4 mg tablet 4 mg PO BID PRN PAIN 3 12/08/22 History calcitriol 0.5 mcg capsule 1.5 mcg (3 x 0.5 mcg) PO QH S 04/13/23 Unknown Rx calcium #90 caps levothyroxine 175 mcg tablet 150 mcg PO DAILY 10/27/23 05/11/24 05:00 History doxycycline monohydrate 100 mg 100 mg PO BID #20 caps 11/07/23 Unknown Rx capsule pantoprazole 40 mg tablet,delayed 40 mg PO DAILY #30 t abs 11/30/23 Unknown Rx release duloxetine 20 mg capsule,delayed 20 mg PO DAILY #30 ca ps 02/28/24 Unknown Rx release Allergy/AdvReac Type Severity Reaction Status Date / Time codeine Allergy Mild Itching Verified 05/11/24 11:16 fluoxetine (From Prozac) AdvReac EDWIN Verified 05/11/24 11:16 naproxen (From Naprosyn) AdvReac NOSEBLEED Verified 05/11/24 11:16 Family History Father Alcoholism Mother Anemia Depression Hypertension Hyperlipemia Diabetes Grandfather Diabetes Myocardial infarction Grandmother Breast cancer Diabetes Surgical History History of esophagogastroduodenoscopy (EGD) History of bilateral salpingo-oophorectomy S/P appendectomy History of appendectomy History of esophagogastroduodenoscopy (EGD) History of incision and drainage S/P hysterectomy H/O thyroidectomy History of cholecystectomy History of total hysterectomy History of thyroidectomy History of partial hysterectomy Social History household members: none Smoking Status: Current every day smoker tobacco type: cigarettes Tobacco: How many years used: 20 alcohol intake: never substance use type: does not use what type of physical activity do you participate in: none ROS Constitutional Constitutional: Denies fatigue, fever(s), poor appetite, weight gain or weight loss Gastrointestinal Gastrointestinal: Denies belching, bloating, change in bowel habits, change in stool character, chewing difficulty, coffee ground emesis, constipation, cramping, diarrhea, dyspepsia, dysphagia, early satiety, excessive flatus, fecal incontinence, heartburn, hematemesis, hematochezia, hemorrhoids, loose stools, melena, nausea, odynophagia, rectal bleeding, tenesmus, vomiting or weight changes Vital Signs Vital Signs Vital Signs: 05/11/24 11:17 05/11/24 11:17 Temperature 97.7 F L Temperature Source Temporal Pulse Rate 62 Respiratory Rate 16 Respiratory Pattern Normal Blood Pressure 116/68 Blood Pressure Mean 84 Blood Pressure Source Monitor Blood Pressure Position Semi-Fowlers Blood Pressure Location Right Arm Pulse Ox 100 Oxygen Delivery Method Room Air Weight Weight: 184 lb 4.903 oz Body Mass Index (BMI) 27.2 Physical Exam Const alert, oriented x3, no apparent distress and healthy appearing General Appearance: cooperative GI normal to inspection, nondistended, normoactive bowel sounds, soft to palpation, non-tender and non-distended Percussion: normal to percussion Rectal Exam: deferred Assessment & Plan Assessment/Plan (1) IBS (irritable bowel syndrome): QUALIFIERS: Irritable bowel syndrome type: unspecified Qualified Code(s): K58.9 - Irritable bowel syndrome without diarrhea (2) Gastric ulcer: QUALIFIERS: Gastric ulcer chronicity: chronic Gastric ulcer complication status: without hemorrhage or perforation Qualified Code(s): K25.7 - Chronic gastric ulcer without hemorrhage or perforation (3) Dysphagia, unspecified: (4) Gastric intestinal metaplasia: PLAN: Assessment and Plan Assessment and Plan (1) IBS (irritable bowel syndrome): Status: Chronic Qualifiers: Irritable bowel syndrome type: unspecified Qualified Code(s): K58.9 - Irritable bowel syndrome without diarrhea Plan: Continue duloxetine. Because of her history of pancreatitis which is acute idiopathic pancreatitis I will order an MRCP. (2) Gastric ulcer: Status: Chronic Qualifiers: Gastric ulcer chronicity: chronic Gastric ulcer complication status: without hemorrhage or perforation Qualified Code(s): K25.7 - Chronic gastric ulcer without hemorrhage or perforation Plan: With her abdominal pain and history of peptic ulcer disease we will perform an upper endoscopy to evaluate upper GI tract.. We will also give her sulcal fate therapy and she is to continue on PPI therapy. (3) Fatty liver: Status: Chronic Plan: She had a FibroScan that it shows that her inflammation in her was 6.5 kPa which is equivalent to an METAVIR 1-2. Since then she has lost a significant amount of weight. We will need to repeat the FibroScan in approximately 8 months. (4) Pancreatitis, chronic: Status: Chronic Plan: I do not suspect that she has chronic pancreatitis. She has had episodes of acute pancreatitis but no evidence of chronic pancreatitis on imaging, by history or biochemical or stool analysis. (5) Chronic constipation: Status: Chronic Plan: Chronic idiopathic constipation in the setting of IBS. She is taking dicyclomine scheduled which I think is helping her abdominal pain. However it is contributing to her constipation because of her lack of appetite and fear of eating secondary to crampy abdominal pain. I will have her only take the dicyclomine prior to her eating to hopefully help her symptoms and help her bowels improve. Previously she was IBS with diarrhea and this is now switched as she has lost weight and stopped eating as much. She has been having some lower GI bleeding that is possibly secondary to her chronic constipation. However the blood was mixed into her stool and she has a history of polyps and diverticular disease so we will recommend a colonoscopy to evaluate her lower GI tract. (6) Gastric intestinal metaplasia: Status: Chronic Comment: Submucosal mass on EGD 10.06.21 Plan: We will repeat her upper endoscopy in the future. Her last upper endoscopy did not show any gastric intestinal metaplasia in the duodenal mass that was biopsied previously. There is also no signs or symptoms of any activity in the gastrointestinal metaplasia associated duodenal lesion. Orders:
--- NOTE | 2024-05-11 12:54 | PCM.POST.ANE ---
Anesthesia: Postop Eval I Current Vital Signs Temperature: 97.2 F Pulse Rate: 79 Blood Pressure: 110/87 Respiratory Rate: 18 Pulse Ox: 95 Assessment Airway patent: Yes Spontaneous unlabored respirations: Yes nausea: No Vomiting: No Anesthesia Complication: No Fluid Hydration Crystalloid volume administer (ml): 10 Total IV fluid infused: 10 Progress Note Anesthesia document: Postop Eval 1 completed: Yes
--- NOTE | 2024-05-11 12:56 | OP.CCLET_ITS ---
05/11/2024 Charli Austin Re : Upper GI endoscopy procedure for Isabel Leonard Geovanna This procedure was performed on Saturday, May 11, 2024. My impressions and recommendations are as follows: Impressions : - LA Grade A reflux esophagitis with no bleeding. Biopsied. - Medium-sized hiatal hernia. - Erythematous mucosa in the antrum. Biopsied. - Bile duodenitis. Biopsied. Recommendations : - Discharge patient to home. - Resume previous diet. - Continue present medications. - Await pathology results. My findings are described in the full procedure note, which is enclosed. If I can be of further assistance, please feel free to contact me at . Sincerely, Jules Rene, 05/11/2024 12:55:42 PM This report has been signed electronically.
--- NOTE | 2024-05-11 12:56 | OP.EGD_ITS ---
Patient Name: Isabel Sparks Procedure Date: 05/11/2024 12:20 PM Date of : 1985 Age: 38 Procedure: Upper GI endoscopy Indications: Epigastric abdominal pain Providers: Jules Rene DO Referring MD: Charli Austin Medicines: Monitored Anesthesia Care Complications: No immediate complications. Procedure: Pre-Anesthesia Assessment: - Prior to the procedure, a History and Physical was performed, and patient medications and allergies were reviewed. The patient is competent. The risks and benefits of the procedure and the sedation options and risks were discussed with the patient. All questions were answered and informed consent was obtained. Patient identification and proposed procedure were verified by the physician in the pre-procedure area. Mental Status Examination: alert and oriented. Airway Examination: normal oropharyngeal airway and neck mobility. Respiratory Examination: clear to auscultation. CV Examination: normal. ASA Grade Assessment: II - A patient with mild systemic disease. After reviewing the risks and benefits, the patient was deemed in satisfactory condition to undergo the procedure. The anesthesia plan was to use monitored anesthesia care (MAC). Immediately prior to administration of medications, the patient was re-assessed for adequacy to receive sedatives. The heart rate, respiratory rate, oxygen saturations, blood pressure, adequacy of pulmonary ventilation, and response to care were monitored throughout the procedure. The physical status of the patient was re-assessed after the procedure. After obtaining informed consent, the endoscope was passed under direct vision. Throughout the procedure, the patient's blood pressure, pulse, and oxygen saturations were monitored continuously. The Colonoscope was introduced through the mouth, and advanced to the fourth part of the duodenum. Small bowel enteroscopy was deemed necessary. The upper GI endoscopy was accomplished without difficulty. The patient tolerated the procedure well. Scope In: 12:28:26 PM Scope Out: 12:34:08 PM Total Procedure Duration Time 0 hours 5 minutes 42 seconds Findings: LA Grade A (one or more mucosal breaks less than 5 mm, not extending between tops of 2 mucosal folds) esophagitis with no bleeding was found 36 to 40 cm from the incisors. Biopsies were taken with a cold forceps for histology. Verification of patient identification for the specimen was done. Estimated blood loss was minimal. A medium-sized hiatal hernia was present. Patchy mildly erythematous mucosa without bleeding was found in the gastric antrum. Biopsies were taken with a cold forceps for histology. Verification of patient identification for the specimen was done. Biopsies were taken with a cold forceps for Helicobacter pylori testing. Verification of patient identification for the specimen was done. Estimated blood loss was minimal. Localized mild inflammation was found in the duodenal bulb. Biopsies were taken with a cold forceps for histology. Verification of patient identification for the specimen was done. Estimated blood loss was minimal. Impression: - LA Grade A reflux esophagitis with no bleeding. Biopsied. - Medium-sized hiatal hernia. - Erythematous mucosa in the antrum. Biopsied. - Bile duodenitis. Biopsied. Recommendation: - Discharge patient to home. - Resume previous diet. - Continue present medications. - Await pathology results. Procedure Code(s): --- Professional --- 59861, Small intestinal endoscopy, enteroscopy beyond second portion of duodenum, not including ileum; with biopsy, single or multiple CPT copyright 2021 [employer]. All rights reserved. The codes documented in this report are preliminary and upon forest landscape ecology professor review may be revised to meet current compliance requirements. Jules Rene DO 05/11/2024 12:55:42 PM This report has been signed electronically. Number of Addenda: 0 Note Initiated On: 05/11/2024 12:20 PM
--- NOTE | 2024-05-11 12:58 | OP.CCLET_ITS ---
05/11/2024 Charli Austin Re : Colonoscopy procedure for Isabel Leonard Geovanna This procedure was performed on Saturday, May 11, 2024. My impressions and recommendations are as follows: Impressions : - Congested mucosa in the entire examined colon. Biopsied. - Congested mucosa in the terminal ileum. Biopsied. Recommendations : - Discharge patient to home. - Resume previous diet. - Continue present medications. - Await pathology results. - Repeat colonoscopy is recommended for surveillance. The colonoscopy date will be determined after pathology results from today's exam become available for review. My findings are described in the full procedure note, which is enclosed. If I can be of further assistance, please feel free to contact me at . Sincerely, Jules Rene, 05/11/2024 12:58:24 PM This report has been signed electronically.
--- NOTE | 2024-05-11 12:58 | OP.COLON_ITS ---
Patient Name: Isabel Sparks Procedure Date: 05/11/2024 12:34 PM Date of : 1985 Age: 38 Procedure: Colonoscopy Indications: Epigastric abdominal pain, Abdominal pain in the left lower quadrant, Abdominal pain in the right lower quadrant, Abdominal pain in the right upper quadrant Providers: Jules Rene DO Referring MD: Charli Austin Medicines: Monitored Anesthesia Care Patient Profile: This is a 38 year old female. Refer to note in patient chart for documentation of history and physical. Last Colonoscopy: within the past 3 years. Complications: No immediate complications. Procedure: Pre-Anesthesia Assessment: - Prior to the procedure, a History and Physical was performed, and patient medications and allergies were reviewed. The patient is competent. The risks and benefits of the procedure and the sedation options and risks were discussed with the patient. All questions were answered and informed consent was obtained. Patient identification and proposed procedure were verified by the physician in the pre-procedure area. Mental Status Examination: alert and oriented. Airway Examination: normal oropharyngeal airway and neck mobility. Respiratory Examination: clear to auscultation. CV Examination: normal. ASA Grade Assessment: II - A patient with mild systemic disease. After reviewing the risks and benefits, the patient was deemed in satisfactory condition to undergo the procedure. The anesthesia plan was to use monitored anesthesia care (MAC). Immediately prior to administration of medications, the patient was re-assessed for adequacy to receive sedatives. The heart rate, respiratory rate, oxygen saturations, blood pressure, adequacy of pulmonary ventilation, and response to care were monitored throughout the procedure. The physical status of the patient was re-assessed after the procedure. After I obtained informed consent, the scope was passed under direct vision. Throughout the procedure, the patient's blood pressure, pulse, and oxygen saturations were monitored continuously. The Colonoscope was introduced through the anus and advanced to the terminal ileum. The colonoscopy was performed without difficulty. The patient tolerated the procedure well. The quality of the bowel preparation was adequate. The terminal ileum, ileocecal valve, appendiceal orifice, and rectum were photographed. Scope In: 12:36:53 PM Scope Withdrawal Time 0 hours 7 minutes 25 seconds Scope Out: 12:46:49 PM Total Procedure Duration Time 0 hours 9 minutes 56 seconds Findings: The perianal and digital rectal examinations were normal. An area of moderately congested mucosa was found in the entire colon. Biopsies were taken with a cold forceps for histology. Verification of patient identification for the specimen was done. Estimated blood loss was minimal. A patchy area of the terminal ileum was congested. Biopsies were taken with a cold forceps for histology. Verification of patient identification for the specimen was done. Estimated blood loss was minimal. Impression: - Congested mucosa in the entire examined colon. Biopsied. - Congested mucosa in the terminal ileum. Biopsied. Recommendation: - Discharge patient to home. - Resume previous diet. - Continue present medications. - Await pathology results. - Repeat colonoscopy is recommended for surveillance. The colonoscopy date will be determined after pathology results from today's exam become available for review. Procedure Code(s): --- Professional --- 51484, Colonoscopy, flexible; with biopsy, single or multiple CPT copyright 2021 [employer] [place] [employer]. All rights reserved. The codes documented in this report are preliminary and upon digitizer review may be revised to meet current compliance requirements. Jules Rene DO 05/11/2024 12:58:24 PM This report has been signed electronically. Number of Addenda: 0 Note Initiated On: 05/11/2024 12:34 PM
--- NOTE | 2024-05-11 13:46 | POSTOPAN2_ITS ---
Anesthesia Postop Eval I Sum Postop Eval Completion status Anesthesia document: Postop Eval 1 completed: Yes Anesthesia Postop Eval I Summary Anesthesia Postop Eval I Summary: Anesthesia Postop Eval I: Assessment Summary Airway patent Yes 05/11/24 12:54 ASSISTANT ASSOCIATE [email or web address] Spontaneous unlabored Yes 05/11/24 12:54 ASSISTANT ASSOCIATE PROFESSOR.CSIR respirations Mental status nausea No 05/11/24 12:54 ASSISTANT ASSOCIATE PROFESSOR.CSIR Vomiting No 05/11/24 12:54 ASSISTANT ASSOCIATE PROFESSOR.CSIR Anesthesia Postop Eval I: Fluid Summary Crystalloid volume administer 10 05/11/24 12:54 ASSISTANT ASSOCIATE PROFESSOR.CSIR (ml) Colloids volume administered ( ml) Blood Product volume administered (ml) Total IV fluid infused 10 05/11/24 12:54 ASSISTANT ASSOCIATE PROFESSOR.CSIR Anesthesia Postop Eval I: Summary Notes Anesthesia Complication No 05/11/24 12:54 ASSISTANT ASSOCIATE PROFESSOR.CSIR Anesthesia Complication Comment: Post-operative progress note Anesthesia: Postop Eval II Evaluation Mental status: Awake and Calm Pain Level: 0 nausea: No Vomiting: No
--- NOTE | 2024-05-11 13:46 | PCM.POSTANE2 ---
Anesthesia Postop Eval I Sum Postop Eval Completion status Anesthesia document: Postop Eval 1 completed: Yes Anesthesia Postop Eval I Summary Anesthesia Postop Eval I Summary: Anesthesia Postop Eval I: Assessment Summary Airway patent Yes 05/11/24 12:54 POND [email or web address] Spontaneous unlabored Yes 05/11/24 12:54 POND [email or web address].CSIR respirations Mental status nausea No 05/11/24 12:54 POND WORKER.CSIR Vomiting No 05/11/24 12:54 POND [email or web address] Anesthesia Postop Eval I: Fluid Summary Crystalloid volume administer 10 05/11/24 12:54 POND [email or web address].CSIR (ml) Colloids volume administered ( ml) Blood Product volume administered (ml) Total IV fluid infused 10 05/11/24 12:54 POND [email or web address].CSIR Anesthesia Postop Eval I: Summary Notes Anesthesia Complication No 05/11/24 12:54 POND [email or web address].CSIR Anesthesia Complication Comment: Post-operative progress note Anesthesia: Postop Eval II Evaluation Mental status: Awake and Calm Pain Level: 0 nausea: No Vomiting: No
== END 2024-05-11 13:27 | disposition home or self-care (01) ==
LOC: EN 10:53 → AC 10:56
PROVIDERS: PCP Nurse Practitioner Family; Referring Provider Nurse Practitioner Family; Visit Provider Internal Medicine Gastroenterology
PROC: 0DJD8ZZ Inspection of Lower Intestinal Tract, Via Natural or Artificial Opening Endoscopic (ICD-10-PCS; CPT 45378; principal; 2024-05-11 11:55)
DX: K21.00 Gastro-esophageal reflux disease with esophagitis, without bleeding (principal); K29.70 Gastritis, unspecified, without bleeding; K31.89 Other diseases of stomach and duodenum; K44.9 Diaphragmatic hernia without obstruction or gangrene; K63.89 Other specified diseases of intestine; F17.210 Nicotine dependence, cigarettes, uncomplicated; K58.0 Irritable bowel syndrome with diarrhea; Z79.899 Other long term (current) drug therapy; Z86.16 Personal history of COVID-19
CPT/HCPCS: 45380; 44361; 88305; 88342; A4216; J2405

== ENCOUNTER 2024-06-21 06:39 | Emergency (ER) | payer MEDICAID, SELFPAY ==
[2024-06-21 06:40] VITALS: BP 146/97; PULSE 64; RESP 18; TEMP 36.6; O2SAT 100; BMI 27.1
[2024-06-21 06:42] VITALS: BP 146/97; PULSE 63; RESP 18; TEMP 36.6; O2SAT 99
--- NOTE | 2024-06-21 07:13 | EX.ED.DYSGE1 ---
HPI History of Present Illness Chief Complaint: Flank Pain Informant: patient Onset/Context/Timing Onset: Days (5) Context: Sudden Onset Timing: Continuous Quality: Sharp Location: Left flank Worsened by: Nothing Relieved by: Nothing Narrative Narrative: Patient presents with left flank pain that began 5 days ago. Patient states it came on again earlier this morning. Patient admits to some urinary urgency but denies any dysuria or hematuria. Patient describes her pain as sharp. Patient states nothing makes it better and nothing makes it worse. Patient states she was seen at another emergency department 3 days ago and had a CAT scan which did not show anything. Patient admits to some subjective chills but denies any fevers. Patient admits to some nausea and vomiting. Prior similar symptoms: Yes PFSH PFS Medical History Cellulitis of right thigh Normal stress echocardiogram Acute sinusitis, unspecified Urinary tract infection with hematuria Radiculopathy Chronic back pain Preventative health care Anterior neck pain Other acute postprocedural pain Elevated lipase Low vitamin B12 level Low calcium levels History of stress test PTSD (post-traumatic stress disorder) Paresthesia Depression Anxiety Hypoglycemia Fatty liver Back pain Syncope History of hiatal hernia Smoker Shortness of breath on exertion Leg cramps History of pain when walking Cardiology follow-up encounter Chest pain Right groin pain Right ovarian cyst Urgency of urination Duodenal mass Epigastric pain Kidney stones Right lower quadrant pain Abnormal tumor markers Hepatomegaly Right renal stone Renal colic on right side History of Holter monitoring Right flank pain Suprapubic discomfort Urinary frequency Hidradenitis suppurativa Abscess of left axilla Urinary tract infection Ureteral calculus, right Irregular heart beat Abnormal urinalysis Diverticulosis Bloating Tenesmus (rectal) Unintentional weight loss Post-surgical hypoparathyroidism Diarrhea Abdominal pain Wears dentures History of COVID-19 Injury of head and neck Asthma Shortness of breath on exertion Leg cramps Hx of cystic acne Bradycardia Intermittent palpitations COVID-19 (03/17/21) Upper respiratory infection Vertigo Chronic constipation Pelvic pain Annular tear of lumbar disc Degenerative disc disease at L5-S1 level Generalized anxiety disorder with panic attacks Postoperative hypothyroidism Tinea pedis of both feet Hypokalemia Hypocalcemia Polycystic ovaries Hypothyroidism Carpal tunnel syndrome H/O breast lump Seasonal allergies Tobacco use Hypocalcemia syndrome TMJ (temporomandibular joint syndrome) Arthritis Home Medications ?Medication ?Instructions ?Recorded ?Last Taken ?Type cholecalciferol (vitamin D3) 125 125 mcg PO DAILY 07/01/22 Unknown History mcg (5,000 unit) capsule dicyclomine 20 mg tablet 20 mg PO TID PRN abdominal pain 11/03/22 Unknown History tizanidine 4 mg tablet 4 mg PO BID PRN PAIN 12/03/22 12/08/22 History calcitriol 0.5 mcg capsule 1.5 mcg (3 x 0.5 mcg) PO QHS 04/13/23 Unknown Rx calcium #90 caps levothyroxine 175 mcg tablet 150 mcg PO DAILY 10/27/23 05/11/24 05:00 History pantoprazole 40 mg tablet,delayed 40 mg PO DAILY #30 tabs 11/30/23 Unknown Rx release duloxetine 20 mg capsule,delayed 20 mg PO DAILY #30 caps 02/28/24 06/18/24 Rx release cyanocobalamin (vitamin B-12) 250 500 mcg PO DAILY 06/21/24 Unknown History mcg tablet ondansetron 4 mg disintegrating 4 mg PO Q8H PRN PRN Nausea #10 tabs 06/21/24 Unknown Rx tablet tramadol 50 mg tablet 50 mg PO Q6H PRN PRN Pain 3 days 06/21/24 Unknown Rx #12 tabs Allergy/AdvReac Type Severity Reaction Status Date / Time codeine Allergy Mild Itching Verified 06/21/24 06:40 fluoxetine (From Prozac) AdvReac EDWIN Verified 06/21/24 06:40 naproxen (From Naprosyn) AdvReac NOSEBLEED Verified 06/21/24 06:40 Family History Father Alcoholism Mother Anemia Depression Hypertension Hyperlipemia Diabetes Grandfather Diabetes Myocardial infarction Grandmother Breast cancer Diabetes Surgical History History of esophagogastroduodenoscopy (EGD) History of bilateral salpingo-oophorectomy S/P appendectomy History of appendectomy History of esophagogastroduodenoscopy (EGD) History of incision and drainage S/P hysterectomy H/O thyroidectomy History of cholecystectomy History of total hysterectomy History of thyroidectomy History of partial hysterectomy Social History household members: none Smoking Status: Current every day smoker tobacco type: cigarettes Tobacco: How many years used: 20 alcohol intake: never substance use type: does not use what type of physical activity do you participate in: none ROS ROS ED Constitutional Constitutional ED: Reports chills and subjective; Denies fever(s) Eyes Eyes: Denies blurry vision or change in vision ENT ENT ED: Denies rhinorrhea or sore throat Cardiovascular Cardiovascular: Denies chest pain or palpitations Respiratory/Chest Respiratory/Chest: Denies cough or dyspnea Gastrointestinal Gastrointestinal: Reports abdominal pain, nausea and vomiting Genitourinary Genitourinary ED: Reports urinary urgency; Denies dysuria or hematuria Musculoskeletal Musculoskeletal: Reports back pain; Denies neck pain Integumentary Denies abscess or rash Neurologic Neurologic: Denies headache(s) or weakness Allergic/Immunologic Allergic/Immunologic ED: Denies mouth swelling or urticaria EXAM Physical Exam Const Vital Signs: 06/21/24 06:40 06/21/24 06:42 06/21/24 06:46 Temperature 97.9 F 97.9 F Temperature Source Oral Oral Pulse Rate 64 63 Respiratory Rate 18 18 Respiratory Effort Normal Non-Labored Respiratory Pattern Normal Blood Pressure 146/97 H 146/97 H Blood Pressure Mean 113 113 Pulse Ox 100 99 Oxygen Delivery Method Room Air Room Air 06/21/24 08:03 Temperature 97.6 F L Temperature Source Oral Pulse Rate 88 Respiratory Rate 19 H Respiratory Effort Respiratory Pattern Blood Pressure 166/87 H Blood Pressure Mean 113 Pulse Ox 97 Oxygen Delivery Method Room Air Positive well nourished and well developed Constitutional Narrative: BMI is 27.2. General Appearance ED: well developed and NAD HEENT Reports moist mucous membranes Neck supple and no JVD Resp normal respiratory effort and clear to auscultation bilaterally Cardio regular rate and regular rhythm GI non-distended Palpation: soft and tender LUQ; Negative for guarding or rebound tenderness present Back/Spine General Back: CVA tenderness left Neuro oriented x3, CN's II-XII intact bilaterally and no sensory deficits noted Sensorium / Orientation: alert Motor Exam: strength 5/5 throughout Psych mental status grossly normal MDM MDM MDM Narrative Medical decision making narrative: Differential diagnosis includes ureteral calculus, pyelonephritis, pancreatitis, gastroenteritis, diverticulitis, colitis, dehydration, and electrolyte abnormality. CBC will be obtained to assess for leukocytosis and anemia. Comprehensive metabolic profile will be obtained to assess for hepatic function, renal function, and electrolyte abnormality. Lipase will be obtained to assess for pancreatitis. Urinalysis will be obtained to assess for urinary tract infection and hematuria. CT scan of the abdomen and pelvis will be obtained to assess for ureteral calculus, pyelonephritis, pancreatitis, diverticulitis, and colitis. Lab Data Attestation: I reviewed the patient's lab results. Lab results narrative: CBC was reviewed. There is a mild leukocytosis of 13.6. The remainder is within normal limits. Comprehensive metabolic profile was reviewed and was within normal limits. Lipase was reviewed and was normal at 25. Urinalysis was reviewed. Leukocyte esterase was 25. Occult blood was 250. There are 0 white blood cells and 0 blood cells seen. There are no bacteria seen. There are 25-50 squamous epithelial cells noted. Labs: Laboratory Results - last 24 hr 06/21/24 06/21/24 06:52 06:55 WBC 13.6 H RBC 4.79 Hgb 14.4 Hct 41.5 MCV 86.6 MCH 30.1 MCHC 34.7 RDW Std Deviation 39.2 RDW Coeff of Jenn 12.2 Plt Count 347 MPV 11.3 Immature Gran % (Auto) 0.400 Neut % (Auto) 60.9 Lymph % (Auto) 28.9 Foster % (Auto) 6.8 Eos % (Auto) 2.1 Baso % (Auto) 0.9 Absolute Neuts (auto) 8.3 H Absolute Lymphs (auto) 3.93 Nucleated RBC % 0 Sodium 140 Potassium 3.8 Chloride 104 Carbon Dioxide 20.9 L Anion Gap 15 BUN 15 Creatinine 1.11 Estim Creat Clear Calc 77.73 Est GFR (MDRD) Non-Af 64 BUN/Creatinine Ratio 13.2 Glucose 118 H Calcium 9.0 Total Bilirubin 0.37 AST 17 ALT 14 Alkaline Phosphatase 48 Total Protein 7.1 Albumin 4.3 Globulin 2.7 Albumin/Globulin Ratio 1.6 Lipase 25 Urine Color Yellow Urine Clarity Sl. Cloudy Urine pH 5.0 Ur Specific [place] 1.030 Urine Protein 30 H Urine Glucose (UA) Normal Urine Ketones 5 H Urine Occult Blood 250 H Urine Nitrite Negative Urine Bilirubin Negative Urine Urobilinogen Normal Ur Leukocyte Esterase 25 H Urine RBC 0 SEEN Urine WBC 0 SEEN Ur Squamous Epith Cells 25-50 SEEN Ur Transition Epith Cell 0-5 SEEN Calcium Oxalate Crystal 1+ Urine Bacteria 0 SEEN Urine Mucus 0 SEEN Urine Yeast RARE Radiography Diagnostic Testing: Clinical Impression(s) from Imaging Studies Abdomen/Pelvis CT 06/21/24 07:24 IMPRESSION: 1. Hepatomegaly with fatty infiltration. 2. Umbilical hernia containing fat. 3. No obstructive uropathy. 4. Fecal retention in the colon consistent with constipation. Reading Location: [facility] CT scan of the abdomen pelvis was obtained. There is fatty infiltration of the liver and hepatomegaly. There is an umbilical hernia containing fat. There is no bowel obstruction or perforation. There is no ureteral calculus or obstructive uropathy. There is fecal retention in the colon consistent with constipation. Treatment and Re-Evaluation :: Patient was given IV fluids, morphine, and Zofran. Patient was advised of her findings. Patient was instructed take laxatives. Patient was given a prescription for a short course of tramadol for pain. Patient was also given a prescription for a short course of Zofran. Patient was instructed to start with a bland diet and advance as tolerated. Patient was instructed to follow-up with her primary care in 5 to 7 days. Patient was instructed to return if worse in any way. Patient understood and was agreeable with the plan. All questions were answered. Discharge Plan Triage Chief Complaint: Flank Pain ED Provider: Ravin Hill Dx/Rx/DC Orders Clinical Impression: Acute left flank pain, Fatty liver Instructions: ED Flank Pain, Uncertain Cause Prescriptions: New tramadol 50 mg tablet 50 mg PO Q6H PRN PRN (Reason: Pain) 3 Days Qty: 12 0RF ondansetron 4 mg tablet,disintegrating 4 mg PO Q8H PRN PRN (Reason: Nausea) Qty: 10 0RF No Action cholecalciferol (vitamin D3) 125 mcg (5,000 unit) capsule 125 mcg PO DAILY dicyclomine 20 mg tablet 20 mg PO TID PRN (Reason: abdominal pain) levothyroxine 175 mcg tablet 150 mcg PO DAILY tizanidine 4 mg tablet 4 mg PO BID PRN Rx Instructions: TAKE 1 TABLET BY MOUTH THREE TIMES DAILY NEEDED MUSCLE spasticity cyanocobalamin (vitamin B-12) 250 mcg tablet 500 mcg PO DAILY calcitriol 0.5 mcg capsule 1.5 mcg PO QHS Qty: 90 2RF pantoprazole 40 mg tablet,delayed release (DR/EC) 40 mg PO DAILY Qty: 30 3RF duloxetine 20 mg capsule,delayed release(DR/EC) 20 mg PO DAILY Qty: 30 1RF Primary Care Provider: Charli Austin NP Referrals: Charli Austin NP, [facility] [Primary Care Provider] - 3-5 Days Print Language: Uzbek Disposition Disposition: Home, Self Care
--- NOTE | 2024-06-21 07:24 | CT_ITS ---
EXAM: CT Abdomen and Pelvis Without Intravenous Contrast CLINICAL INDICATION: LEFT FLANK PAIN TECHNIQUE: Axial computed tomography images of the abdomen and pelvis without intravenous contrast. This CT exam was performed using one or more of the following dose reduction techniques: automated exposure control, adjustment of the mA and/or kV according to patient size, and/or use of iterative reconstruction technique. COMPARISON: CT Abdomen Pelvis dated 03/15/2023 FINDINGS: LUNG BASES: Unremarkable. No mass. No consolidation. ABDOMEN: LIVER: Hepatomegaly with fatty infiltration. GALLBLADDER AND BILE DUCTS: Unremarkable. No calcified stones. No ductal dilation. PANCREAS: Unremarkable. No ductal dilation. SPLEEN: Unremarkable. No splenomegaly. ADRENALS: Unremarkable. No mass. KIDNEYS AND URETERS: Unremarkable. No stones within either kidney. No hydronephrosis. STOMACH AND BOWEL: Fecal retention in the colon consistent with constipation. No obstruction. No mucosal thickening. PELVIS: APPENDIX: No findings to suggest acute appendicitis. BLADDER: Unremarkable. No stones. REPRODUCTIVE: 4.7 by 1.9 cm hypodense lesion of the left adnexa, likely an ovarian cyst. ABDOMEN and PELVIS: INTRAPERITONEAL SPACE: Unremarkable. No free air. No significant fluid collection. BONES/JOINTS: No acute fracture. No dislocation. SOFT TISSUES: Umbilical hernia containing fat. VASCULATURE: Unremarkable. No abdominal aortic aneurysm. LYMPH NODES: Unremarkable. No enlarged lymph nodes. CT/Abdomen/Pelvis without Cont IMPRESSION: 1. Hepatomegaly with fatty infiltration. 2. Umbilical hernia containing fat. 3. No obstructive uropathy. 4. Fecal retention in the colon consistent with constipation. Reading Location[facility]
[2024-06-21] MEDS: Morphine 4 MG/ML Syringe IV ×2 (07:28→08:34)
[2024-06-21] MEDS: Ondansetron 4 MG/2 ML Vial IV ×2 (07:28→08:33)
[2024-06-21] MEDS: 0.9% Normal Saline (1000mL) 1,000 ML 1000 ML IV (07:30)
[2024-06-21 07:36] LABS: Bacteria 0 SEEN /hpf (None Seen); Mucous, Urine 0 SEEN /hpf (<or=2+); White Blood Cells 0 SEEN /hpf (0-5)
[2024-06-21 07:38] LABS: Absolute Lymphocyte Count 3.93 X10^3/uL (0.83-4.51); Absolute Neutrophil Count 8.3 X10^3/uL (2.0-7.7); Basophil# 0.12 X10^3/uL; Basophil% 0.9 % (0-1); Eosinophil# 0.29 X10^3/uL; Eosinophils% 2.1 % (0-5); Hematocrit 41.5 % (37-47); Hemoglobin 14.4 g/dL (12.0-15.0); Lymphocyte # 3.93 X10^3/ul (0.83-4.51); Lymphocyte % 28.9 % (19-41); Mean Corp Hgb Conc 34.7 g/dL (32-36); Mean Corpuscular Hgb 30.1 pg (27.0-32.0); Mean Corpuscular Volume 86.6 fL (81-99); Mean Platelet Vol. 11.3 fl (6.2-12.0); Monocyte# 0.93 X10^3/uL; Monocyte% 6.8 % (0-10); NRBC Flagged by Analyzer 0 % (0-5); Neutrophil # 8.29 X10^3/uL (2.7-7.7); Neutrophil % 60.9 % (47-70); Platelet Count 347 K/mm3 (150-450); RBC Distribution Width CV 12.2 % (11.6-14.6); RBC Distribution Width SD 39.2 fl (35.1-43.9); Red Blood Count 4.79 M/mm3 (4.2-5.4); White Blood Count 13.6 K/mm3 (4.4-11.0)
[2024-06-21 07:40] LABS: Color, Urine Yellow (Yellow); Glucose, Dipstick Normal (Normal); Ketone-Dipstick 5 mg/dl (Negative); Leukocyte Esterase-Dipstick 25 /ul (Negative); Nitrite-Dipstick Negative (Negative); Occult Blood-Urine 250 /ul (Negative); Protein-Dipstick 30 mg/dl (Negative); Urine Bilirubin Dipstick Negative (Negative); Urine Clarity Sl. Cloudy (Clear); Urine Urobilinogen Normal (Normal)
[2024-06-21 07:56] LABS: Red Blood Cells-Urine 0 SEEN /hpf (0-5)
[2024-06-21 07:57] LABS: Squamous Epithelial Cells - UA 25-50 SEEN /hpf (5-10); Transitional Epithelial - Ur 0-5 SEEN /hpf (0-5)
[2024-06-21 07:58] LABS: Calcium Oxalate Crystals Ur 1+ /hpf (<or=2+); Yeast-Urine RARE /hpf (None Seen)
[2024-06-21 08:02] LABS: ALB/GLOB Ratio 1.6 RATIO (0.9-2.4); AST(SGOT) 17 U/L (<=31); Alanine Aminotransfer ALT/SGPT 14 U/L (<=34); Albumin, Serum 4.3 g/dL (3.5-5.0); Alkaline Phosphatase 48 U/L (35-104); Anion Gap 15 (5-15); BUN 15 mg/dL (4-19); BUN/Creat Ratio 13.2 RATIO (10-20); Carbon Dioxide 20.9 mmol/L (21.0-32.0); Chloride 104 mmol/L (98-108); Creatinine, Serum 1.11 mg/dL (0.70-1.20); EST Glomerular Filtration Rate 64 (>60); Estimated Creatinine Clearance 77.73 ml/min (50-250); Globulin 2.7 g/dL (2.2-4.2); Glucose 118 mg/dL (70-99); Lipase 25 U/L (13-75); Potassium 3.8 mmol/L (3.3-5.1); Protein, Total 7.1 g/dL (5.9-8.4); Sodium Level 140 mmol/L (133-145); Total Bilirubin 0.37 mg/dL (0.00-1.30)
[2024-06-21 08:03] VITALS: BP 166/87; PULSE 88; RESP 19; TEMP 36.4; O2SAT 97
[2024-06-21 08:39] VITALS: BP 118/73; PULSE 51; RESP 16; O2SAT 99
[2024-06-21 08:54] VITALS: BP 118/73; PULSE 54; RESP 16; TEMP 36.6; O2SAT 97
== END 2024-06-21 09:12 | disposition home or self-care (01) ==
PROVIDERS: Emergency Provider Emergency Medicine; PCP Nurse Practitioner Family; Visit Provider Emergency Medicine
DX: R10.9 Unspecified abdominal pain (principal); F17.210 Nicotine dependence, cigarettes, uncomplicated; K76.0 Fatty (change of) liver, not elsewhere classified; Z79.899 Other long term (current) drug therapy; Z86.16 Personal history of COVID-19
CPT/HCPCS: 74176; 80053; 81001; 83690; 85025; 96374; 96375; 96376; 99284; A4216; J2405

== ENCOUNTER → 2024-07-12 | Outpatient (CLI) | payer MEDICAID, SELFPAY ==
--- NOTE | 2024-07-12 08:01 | US_ITS ---
PROCEDURE: PELVIC W/ TRANSVAGINAL REASON FOR EXAM: OVARIAN CYST TECHNIQUE: Transabdominal and transvaginal pelvic ultrasound COMPARISON: None FINDINGS: Measurements: Uterus: Patient is status post hysterectomy. Right Ovary: 2.4 cm x 2.1 cm x 1.9 cm with a volume of 4.9 mL. Left Ovary: 6.2 cm x 4.5 cm x 2.3 cm with a volume of 33 mL. TRANSABDOMINAL: Uterus: Status post hysterectomy. Right ovary: Small follicles are seen. Left ovary: Dominant cyst within the ovary measuring 4.2 cm 4 cm 1.9 cm. Other: No large pelvic mass identified. Transvaginal sonography was performed as transabdominal imaging did not explain the patient's presenting symptoms. TRANSVAGINAL: Right ovary: Small right ovarian follicles. Left ovary: 4.2 cm x 4 cm x 1.9 cm cyst. Other adnexal findings: None. Cul-de-sac: No free intraperitoneal fluid identified. US/Pelvic w/ Transvaginal IMPRESSION: Status post hysterectomy. Left ovarian cyst measuring 4.2 cm x 4 cm 1.9 cm. Reading Location: [place] [id number]
== END | disposition home or self-care (01) ==
LOC: OPUS 08:00
PROVIDERS: PCP Nurse Practitioner Family; Referring Provider Obstetrics & Gynecology; Visit Provider Obstetrics & Gynecology
DX: N83.202 Unspecified ovarian cyst, left side (principal)
CPT/HCPCS: 76830; 76856

== ENCOUNTER → 2024-07-28 | Outpatient (CLI) | payer MEDICAID, SELFPAY ==
--- NOTE | 2024-07-28 07:31 | MRI_ITS ---
PROCEDURE: SPINE CERVICAL (ROUTINE) 07/28/2024 REASON FOR EXAM: Neck and right upper extremity pain. Numbness and tingling. TECHNIQUE: Multiplanar and multisequence images were obtained without IV contrast administration. COMPARISON: Correlation with plain film imaging dated 06/29/2024 FINDINGS: There is mild straightening of the cervical spine, which could be positional versus muscle spasm. Cervical vertebral body heights and marrow signal are within normal limits. No acute cervical spine fractures or dislocations are identified. Congenital short pedicles. There is mild dehydration of the disc seen at the C2 through C5 levels. Cervicomedullary junction is preserved. Cervical cord morphology and signal intensity is within normal limits. No prevertebral soft tissue swelling is seen. Well-marginated hypointense T1/T2 signal intensity seen within the superficial lobe of the left parotid gland, measuring 1.2 x 1.2 cm, with small areas of T1 shortening. Trace T2 signal intensity within the right mastoid air cells, inferiorly. Disc levels as follows: C2-3: No disc herniation, central spinal or neural foraminal stenosis bilaterally C3-4: No disc herniation, central spinal or neural foraminal stenosis bilaterally C4-5: Tiny central disc bulge. No significant central spinal or left neural foraminal stenosis. There is mild neural foraminal stenosis on the right secondary to uncovertebral joint hypertrophy. C5-6: Broad-based disc osteophyte complex contacts and indents the ventral cord. Spinal canal is narrowed to approximately 6.5 mm AP. Severe neural foraminal stenosis bilaterally secondary to uncovertebral joint hypertrophy worse on the right C6-7: Broad-based disc osteophyte complex indents the ventral cord and narrows the spinal canal to approximately 5 mm AP. There is severe neural foraminal stenosis bilaterally secondary to uncovertebral joint hypertrophy. C7-T1: Unremarkable T1-2: Evaluated on sagittal imaging only. No significant disc herniation, central spinal or neural foraminal stenosis bilaterally T2-3: Evaluated on sagittal imaging only. Minimal disc bulge without significant central spinal or neural foraminal stenosis bilaterally Parotid neoplasm not entirely excluded. MRI/Spine Cervical (Routine) IMPRESSION: 1. Well-marginated 1.2 x 1.2 cm T1/T2 hypointensity within the superficial lobe of the left parotid gland, with some small areas of T1 shortening, favors Warthin's tumor. Other parotid neoplasm not entirely excluded. Correlate with history. 2. At the C6-7 level, disc osteophyte complex indents the ventral cord and narr ows the spinal canal to 5 mm AP. There is severe neural foraminal stenosis bilaterally. 3. At the C5-6 level, broad-based disc osteophyte complex narrows the spinal ca nal to 6.5 mm AP. Severe neural foraminal stenosis bilaterally, worse on the right. 4. At the C4-5 level, tiny central disc bulge without central spinal stenosis. Mild neural foraminal stenosis on the right. 5. Additional findings, as detailed above. Reading Location: [facility]
== END | disposition home or self-care (01) ==
LOC: MRI 07:23
PROVIDERS: PCP Nurse Practitioner Family; Referring Provider Student in an Organized Health Care Education/Training Program; Visit Provider Student in an Organized Health Care Education/Training Program
DX: G95.9 Disease of spinal cord, unspecified (principal); M54.12 Radiculopathy, cervical region
CPT/HCPCS: 72141

== ENCOUNTER 2024-08-29 10:21 | Observation (INO) | payer MEDICAID, SELFPAY ==
--- NOTE | 2024-08-23 13:48 | EKG12_ITS ---
Test Reason : PRE OP Blood Pressure : */* mmHG Vent. Rate : 69 BPM Atrial Rate : 69 BPM P-R Int : 146 ms QRS Dur : 82 ms QT Int : 408 ms P-R-T Axes : 81 56 55 degrees QTcB Int : 437 ms Normal sinus rhythm Normal ECG Confirmed by PAT BONNER, KIRIT ([id number]), web content editor NIKOLE CORRALES ([id number]) on 08/27/2024 7:04:51 AM Referred By: Eloy Lowe Confirmed By: KIRIT STEWART MD
[2024-08-23 14:51] LABS: Basophil# 0.05 X10^3/uL; Basophil% 0.8 % (0-1); Eosinophil# 0.51 X10^3/uL; Eosinophils% 8.4 % (0-5); Hematocrit 40.3 % (37-47); Hemoglobin 13.9 g/dL (12.0-15.0); Lymphocyte % 47.8 % (19-41); Mean Corp Hgb Conc 34.5 g/dL (32-36); Mean Corpuscular Hgb 29.9 pg (27.0-32.0); Mean Corpuscular Volume 86.7 fL (81-99); Mean Platelet Vol. 11.6 fl (6.2-12.0); Monocyte# 0.57 X10^3/uL; Monocyte% 9.4 % (0-10); NRBC Flagged by Analyzer 0 % (0-5); Neutrophil # 2.03 X10^3/uL (2.7-7.7); Neutrophil % 33.4 % (47-70); Platelet Count 285 K/mm3 (150-450); RBC Distribution Width CV 12.8 % (11.6-14.6); RBC Distribution Width SD 40.8 fl (35.1-43.9); Red Blood Count 4.65 M/mm3 (4.2-5.4); White Blood Count 6.1 K/mm3 (4.4-11.0)
[2024-08-23 15:13] LABS: Hemoglobin A1c 5.6 % (<=5.6)
[2024-08-23 15:42] LABS: Hepatitis B Surface Antibody Nonreactive
[2024-08-23 15:44] LABS: Magnesium 1.9 mg/dL (1.5-2.2); Thyroid Stim Hormone (TSH) 0.625 uIU/mL (0.300-4.200)
[2024-08-23 16:00] LABS: Anion Gap 13 (5-15); BUN 14 mg/dL (4-19); BUN/Creat Ratio 13.8 RATIO (10-20); Calcium,Total 8.9 mg/dL (7.6-11.0); Carbon Dioxide 22.3 mmol/L (21.0-32.0); Chloride 103 mmol/L (98-108); Creatinine, Serum 1.01 mg/dL (0.70-1.20); EST Glomerular Filtration Rate 72 (>60); Glucose 105 mg/dL (70-99); HIV Nonreactive (Nonreactive); Hepatitis C Antibody Nonreactive (Nonreactive); Potassium 3.8 mmol/L (3.3-5.1); Sodium Level 139 mmol/L (133-145)
--- NOTE | 2024-08-23 17:50 | PAT.ANE_ITS ---
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 When Was Last Pacemaker Check QUESTION #4 FULL TEXT: You/Your Family Experience fever (hyperthermia) with Anesthesia Last Oral Intake Last Oral intake: Last Oral Intake NPO since Meds taken in AM with sips of water? 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 Female Yes 08/23/24 12:06 HX of Motion Sickness No 08/23/24 12:06 HX of N/V After Surgery Yes 08/23/24 12:06 Non-Smoker Yes 08/23/24 12:06 Duration of Surgery greater Yes 08/23/24 12:06 than 60 minutes Number of Risk Factors 4 08/23/24 12:06 PONV Score Severe Risk 08/23/24 12:06 Height & Weight Height & Weight: Anesthesia: Height & Weight Height 5 ft 9 in 08/03/24 10:32 Respiratory Assessment Respiratory Assessment - general utility worker: Respiratory Tract Infection Hx - general utility worker Hx Respiratory Tract Infection Yes: HEAD COLD 08/23/24 12:06 STOP Sleep Apnea STOP Sleep Apnea - general utility worker: STOP Sleep Apnea - general utility worker Hx Hypertension No 08/23/24 12:06 Hx Sleep Apnea No 08/23/24 12:06 CPAP No 05/09/24 13:14 BIPAP No 05/09/24 13:14 Do you snore loudly (louder No 08/23/24 12:06 than talking or can be heard Do you often feel tired/ Yes 08/23/24 12:06 fatigued/ sleepy during daytime? Has anyone observed you stop No 08/23/24 12:06 breathing during sleep? STOP Results Negative 08/23/24 12:06 QUESTION #5 FULL TEXT : Do you snore loudly (louder than talking or can be heard through closed doors)? 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 Specify any problems Hx of Preganancy in last 3 No 08/23/24 12:06 Months Nurse Filling Out Transfusion DSCHRIBER 08/23/24 12:06 & Questions: Date: 08/23/24 08/23/24 12:06 Time: 12:08 08/23/24 12:06 Patient unable to answer at this time (ie. confused, unrespo /Reproduction History /Reproductive History - general utility worker: /Reproductive Hx- general utility worker Hx Now No 08/23/24 12:06 Gestational Age (in weeks): EDC: Hx Hx Para Hx Section SAB No 08/23/24 12:06 PFSH Medical History Gastric reflux Tingling of both upper extremities Parotid mass Cellulitis of right thigh Normal stress echocardiogram Acute sinusitis, unspecified Urinary tract infection with hematuria Radiculopathy Chronic back pain Preventative health care Anterior neck pain Other acute postprocedural pain Elevated lipase Low vitamin B12 level Low calcium levels History of stress test PTSD (post-traumatic stress disorder) Paresthesia Depression Anxiety Hypoglycemia Fatty liver Back pain Syncope History of hiatal hernia Smoker Shortness of breath on exertion Leg cramps History of pain when walking Cardiology follow-up encounter Right groin pain Right ovarian cyst Urgency of urination Duodenal mass Epigastric pain Right lower quadrant pain Abnormal tumor markers Hepatomegaly Right renal stone Renal colic on right side History of Holter monitoring Right flank pain Suprapubic discomfort Urinary frequency Hidradenitis suppurativa Abscess of left axilla Urinary tract infection Ureteral calculus, right Irregular heart beat Abnormal urinalysis Diverticulosis Bloating Tenesmus (rectal) Unintentional weight loss Post-surgical hypoparathyroidism Diarrhea Abdominal pain Wears dentures Injury of head and neck Asthma Shortness of breath on exertion Leg cramps Hx of cystic acne Bradycardia Intermittent palpitations COVID-19 (03/17/21) Upper respiratory infection Vertigo Chronic constipation Pelvic pain Annular tear of lumbar disc Degenerative disc disease at L5-S1 level Generalized anxiety disorder with panic attacks Postoperative hypothyroidism Tinea pedis of both feet Hypokalemia Hypocalcemia Polycystic ovaries Hypothyroidism Carpal tunnel syndrome H/O breast lump Tobacco use Hypocalcemia syndrome TMJ (temporomandibular joint syndrome) Arthritis Home Medications ?Medication ?Instructions ?Recorded ?Last Taken ?Type cholecalciferol (vitamin D3) 125 125 mcg PO TU 3 Unknown History mcg (5,000 unit) capsule dicyclomine 20 mg tablet 20 mg PO TID PRN abdominal p ain 11/03/22 Unknown History tizanidine 4 mg tablet 4 mg PO BID PRN PAIN 3 12/08/22 History calcitriol 0.5 mcg capsule 1.5 mcg (3 x 0.5 mcg) PO QH S 04/13/23 Unknown Rx calcium #90 caps pantoprazole 40 mg tablet,delayed 40 mg PO DAILY #30 t abs 11/30/23 Unknown Rx release cyanocobalamin (vitamin B-12) 250 500 mcg PO DAILY Unknown History mcg tablet ondansetron 4 mg disintegrating 4 mg PO Q8H PRN PRN Na usea #10 tabs 06/21/24 Unknown Rx tablet albuterol sulfate 90 mcg/actuation 1 - 2 puff inhalati on Q4H PRN PRN 08/23/24 Unknown History aerosol inhaler wheezing duloxetine 20 mg capsule,delayed 20 mg PO QHS 08/23/24 Unknown History release levothyroxine 150 mcg tablet 150 mcg PO DAILY 08/23/24 Unknown History Allergy/AdvReac Type Severity Reaction Status Date / Time codeine Allergy Mild Itching Verified 08/23/24 12:01 fluoxetine (From Prozac) AdvReac EDWIN Verified 08/23/24 12:01 naproxen (From Naprosyn) AdvReac NOSEBLEED Verified 08/23/24 12:01 Family History Father Alcoholism Mother Anemia Depression Hypertension Hyperlipemia Diabetes Grandfather Diabetes Myocardial infarction Grandmother Breast cancer Diabetes Surgical History History of bilateral salpingo-oophorectomy S/P appendectomy History of appendectomy History of esophagogastroduodenoscopy (EGD) History of incision and drainage S/P hysterectomy H/O thyroidectomy History of cholecystectomy History of total hysterectomy History of thyroidectomy History of partial hysterectomy Social History household members: none number of children: 4 current occupational status: employed current occupation: [employer] Smoking Status: Current every day smoker tobacco type: cigarettes Tobacco: How many years used: 20 alcohol intake: never substance use type: does not use what type of physical activity do you participate in: none additional social history: Single Prior Cardiac Testing/Procedures Prior Cardiac Testing/Procedures: Stress Test (Nl Stress Echo in 2022) Addt'l Information Additional Findings: >4 METS Recommendation Anesthesia Recommendation Anesthesia recommendation: OPTIMIZED for anesthesia
[2024-08-25 06:08] LABS: Hepatitis A AB, Total Negative (Negative)
[2024-08-29] VITALS (15 sets, daily range): BP systolic 105–123; BP diastolic 64–80; PULSE 55–90; RESP 12–23; TEMP 36.2–36.9; O2SAT 95–100; BMI 26.4
[2024-08-29] MEDS: Lactated Ringers 1,000 ML 15 ML IV (05:55)
[2024-08-29] MEDS: Magnesium 2 GM for ERAS IV (06:00)
[2024-08-29] MEDS: Acetaminophen 500 MG Tablet 1000 MG PO (06:27)
--- NOTE | 2024-08-29 06:30 | RAD_ITS ---
EXAM: XR Cervical Spine, 2 or 3 Views CLINICAL INDICATION: CERVICAL DISC ARTHROPLASTY TECHNIQUE: Frontal and lateral views of the cervical spine. COMPARISON: No relevant prior studies available. FINDINGS: VERTEBRAE: Unremarkable. No definite fracture. Normal alignment. DISC SPACES: No acute findings. No significant narrowing. SOFT TISSUES: Unremarkable. OTHER FINDINGS: 4 spot images were obtained. Total fluoroscopy time was 19.5 seconds. Total radiation dose was 1.49 mGy. RAD/Cerv Spine 2 or 3 Views IMPRESSION: Fluoroscopic guidance was used intraoperatively. Please refer to operative not e for further details. Reading [facility]
--- NOTE | 2024-08-29 06:43 | PCM.PRE.AN2 ---
ASA Classification* ASA Classification ASA Classification: 2 Assessment & Plan Anesthesia* Anesthesia Assessment Anesthesia Assessment: Discussed sedation and/or anesthesia options, risks, benefits, and alternatives with patient/parents/legal guardian/POA. Questions invited. The patient/parents/legal guardian/POA seems to understand and agrees to proceed with anesthesia plan. Reviewed the physical assessment, medical history, allergy history and patient home medications list prior to surgery/procedure/anesthetic and documented any changes. Performed airway and anesthesia risk assessments. Anesthesia Type Anesthesia Type: General Anesthesia Focused Assessment* Temperature: 98.2 F Pulse Rate: 68 Blood Pressure: 115/66 Respiratory Rate: 18 Pulse Ox: 98 Airway Assessment Mouth opens: >3 cm Mallampati Score: II Focused Labs Anesthesia Preop lab: CBC WBC 6.1 K/mm3 (4.4-11.0) 08/23/24 14:02 08/23/24 RBC 4.65 M/mm3 (4.2-5.4) 08/23/24 14:02 08/23/24 Hgb 13.9 g/dL (12.0-15.0) 08/23/24 14:02 08/23/24 Hct 40.3 % (37-47) 08/23/24 14:02 08/23/24 Plt Count 285 K/mm3 (150-450) 08/23/24 14:02 08/23/24 CHEMISTRY Potassium 3.8 mmol/L (3.3-5.1) 08/23/24 14:02 08/23/24 Sodium 139 mmol/L (133-145) 08/23/24 14:02 08/23/24 Magnesium 1.9 mg/dL (1.5-2.2) 08/23/24 14:02 08/23/24 Phosphorus 3.7 mg/dL (2.5-4.9) 02/28/19 08:51 02/28/19 BUN 14 mg/dL (4-19) 08/23/24 14:02 08/23/24 Creatinine 1.01 mg/dL (0.70-1.20) 08/23/24 14:02 08/23/24 Glucose 105 mg/dL (70-99) H 08/23/24 14:02 08/23/24 POC Glucose 132 mg/dL (70-110) H 01/15/14 16:04 01/15/14 TSH 0.625 uIU/mL (0.300-4.200) 08/23/24 14:02 08/23/24 COAG PT 12.8 SECONDS (11.7-14.9) 04/16/22 18:00 04/16/22 HCG, Quant 1367 mIU/mL (<9 non-preg) H 01/07/13 20:00 01/07/13 Urine Test Negative Negative 01/21/21 12:05 01/21/21 Pre-Assessment Diagnosis/Proposed Procedure Planned Operative Procedure(s): CERVICAL DISC ARTHROPLASTY Anesthesia History 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 When Was Last Pacemaker Check QUESTION #4 FULL TEXT: You/Your Family Experience fever (hyperthermia) with Anesthesia Last Oral Intake Last Oral intake: Last Oral Intake NPO since 04:00 08/29/24 05:55 Meds taken in AM with sips of Yes 08/29/24 05:55 water? Meds patient instructed to SEE MED REC 08/29/24 05:55 take am of surgery PONV PONV - [employer]: PONV - [employer] Female Yes 08/23/24 12:06 HX of Motion Sickness No 08/23/24 12:06 HX of N/V After Surgery Yes 08/23/24 12:06 Non-Smoker Yes 08/23/24 12:06 Duration of Surgery greater Yes 08/23/24 12:06 than 60 minutes Number of Risk Factors 4 08/23/24 12:06 PONV Score Severe Risk 08/23/24 12:06 Height & Weight Height & Weight: Anesthesia: Height & Weight Height 5 ft 9 in 08/29/24 05:55 Weight: 81 kg 08/29/24 05:55 Body Mass Index (BMI) 26.4 08/29/24 05:55 Respiratory Assessment Respiratory Assessment - [employer]: Respiratory Tract Infection Hx - [employer]orer [employer] Hx Respiratory Tract Infection Yes: HEAD COLD 08/23/24 12:06 STOP Sleep Apnea STOP Sleep Apnea - [employer]: STOP Sleep Apnea - [employer]orer [employer] Hx Hypertension No 08/23/24 12:06 Hx Sleep Apnea No 08/23/24 12:06 CPAP No 05/09/24 13:14 BIPAP No 05/09/24 13:14 Do you snore loudly (louder No 08/23/24 12:06 than talking or can be heard Do you often feel tired/ Yes 08/23/24 12:06 fatigued/ sleepy during daytime? Has anyone observed you stop No 08/23/24 12:06 breathing during sleep? STOP Results Negative 08/23/24 12:06 QUESTION #5 FULL TEXT : Do you snore loudly (louder than talking or can be heard through closed doors)? 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 Specify any problems Hx of Preganancy in last 3 No 08/23/24 12:06 Months Nurse Filling Out Transfusion DSCHRIBER 08/23/24 12:06 & Questions: Date: 08/23/24 08/23/24 12:06 Time: 12:08 08/23/24 12:06 Patient unable to answer at this time (ie. confused, unrespo /Reproduction History /Reproductive History - [employer]orer [employer]: /Reproductive Hx- [employer] Hx Now No 08/23/24 12:06 Gestational Age (in weeks): EDC: Hx Hx Para Hx Section SAB No 08/23/24 12:06 Active Medications Active Medications: Current Medications Generic Name Dose Route Start Last Admin Trade Name Freq PRN Reason Stop Dose Admin Acetaminophen 1,000 mg 08/29/24 07:30 08/29/24 06:27 Acetaminophen 500 Mg Tablet PO 08/29/24 07:31 1,000 mg PREOP ONE Administration Dexamethasone Sodium Phosphate 8 mg 08/29/24 07:30 Dexamethasone 10 Mg/Ml Vial IV 08/29/24 07:31 INTRAOP ONE Dexamethasone Sodium Phosphate 4 mg 08/29/24 07:30 Dexamethasone 4 Mg/Ml Vial IV 08/29/24 07:31 POSTOP ONE Cefazolin Sodium 2 gm/ Sodium 110 mls @ 150 mls/hr 08/29/24 07:30 Chloride IV 08/29/24 08:13 INTRAOP ONE Tranexamic Acid 1,000 mg/ 110 mls @ 440 mls/hr 08/29/24 07:30 Sodium Chloride IV 08/29/24 07:44 INTRAOP ONE Tranexamic Acid 1,000 mg/ 110 mls @ 440 mls/hr 08/29/24 07:30 Sodium Chloride IV 08/29/24 07:44 INTRAOP ONE Magnesium Sulfate 2 gm/ 104 mls @ 208 mls/hr 08/29/24 07:30 08/29/24 06:00 Dextrose IV 08/29/24 07:59 208 mls/hr INTRAOP ONE Administration Lactated Ringer's 1,000 mls @ 15 mls/hr 08/29/24 06:30 08/29/24 05:55 IV 15 mls/hr .Q48H YASEMIN Administration Insulin Human Lispro 1 - 6 unit 08/29/24 07:30 Insulin Lispro 100 Unit/Ml Insuln.Pen SC 08/29/24 18:00 Q4H PRN PRN BG>/= 180, SEE PROTOCOL Protocol PFSH Medical History Gastric reflux Tingling of both upper extremities Parotid mass Cellulitis of right thigh Normal stress echocardiogram Acute sinusitis, unspecified Urinary tract infection with hematuria Radiculopathy Chronic back pain Preventative health care Anterior neck pain Other acute postprocedural pain Elevated lipase Low vitamin B12 level Low calcium levels History of stress test PTSD (post-traumatic stress disorder) Paresthesia Depression Anxiety Hypoglycemia Fatty liver Back pain Syncope History of hiatal hernia Smoker Shortness of breath on exertion Leg cramps History of pain when walking Cardiology follow-up encounter Right groin pain Right ovarian cyst Urgency of urination Duodenal mass Epigastric pain Right lower quadrant pain Abnormal tumor markers Hepatomegaly Right renal stone Renal colic on right side History of Holter monitoring Right flank pain Suprapubic discomfort Urinary frequency Hidradenitis suppurativa Abscess of left axilla Urinary tract infection Ureteral calculus, right Irregular heart beat Abnormal urinalysis Diverticulosis Bloating Tenesmus (rectal) Unintentional weight loss Post-surgical hypoparathyroidism Diarrhea Abdominal pain Wears dentures Injury of head and neck Asthma Shortness of breath on exertion Leg cramps Hx of cystic acne Bradycardia Intermittent palpitations COVID-19 (03/17/21) Upper respiratory infection Vertigo Chronic constipation Pelvic pain Annular tear of lumbar disc Degenerative disc disease at L5-S1 level Generalized anxiety disorder with panic attacks Postoperative hypothyroidism Tinea pedis of both feet Hypokalemia Hypocalcemia Polycystic ovaries Hypothyroidism Carpal tunnel syndrome H/O breast lump Tobacco use Hypocalcemia syndrome TMJ (temporomandibular joint syndrome) Arthritis Home Medications ?Medication ?Instructions ?Recorded ?Last Taken ?Type cholecalciferol (vitamin D3) 125 125 mcg PO TU 07/01/22 08/22/24 History mcg (5,000 unit) capsule dicyclomine 20 mg tablet 20 mg PO TID PRN abdominal pain 11/03/22 Unknown History tizanidine 4 mg tablet 4 mg PO BID PRN PAIN 12/03/22 08/28/24 21:00 History calcitriol 0.5 mcg capsule 1.5 mcg (3 x 0.5 mcg) PO QHS 04/13/23 08/28/24 21:00 Rx calcium #90 caps cyanocobalamin (vitamin B-12) 250 500 mcg PO DAILY 06/21/24 08/28/24 History mcg tablet ondansetron 4 mg disintegrating 4 mg PO Q8H PRN PRN Nausea #10 tabs 06/21/24 Unknown Rx tablet albuterol sulfate 90 mcg/actuation 1 - 2 puff inhalation Q4H PRN PRN 08/23/24 Unknown History aerosol inhaler wheezing duloxetine 20 mg capsule,delayed 20 mg PO QHS 08/23/24 08/28/24 21:00 History release levothyroxine 150 mcg tablet 150 mcg PO DAILY 08/23/24 08/29/24 04:00 History pantoprazole 40 mg tablet,delayed 40 mg PO DAILY #30 tabs 08/28/24 08/29/24 04:00 Rx release Allergy/AdvReac Type Severity Reaction Status Date / Time codeine Allergy Mild Itching Verified 08/29/24 06:18 fluoxetine (From Prozac) AdvReac EDWIN Verified 08/29/24 06:18 naproxen (From Naprosyn) AdvReac NOSEBLEED Verified 08/29/24 06:18 Family History Father Alcoholism Mother Anemia Depression Hypertension Hyperlipemia Diabetes Grandfather Diabetes Myocardial infarction Grandmother Breast cancer Diabetes Surgical History History of bilateral salpingo-oophorectomy S/P appendectomy History of appendectomy History of esophagogastroduodenoscopy (EGD) History of incision and drainage S/P hysterectomy H/O thyroidectomy History of cholecystectomy History of total hysterectomy History of thyroidectomy History of partial hysterectomy Social History household members: none number of children: 4 current occupational status: employed 

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
[2024-08-29] MEDS: dexAMETHasone 10 MG/ML Vial 8 MG IV (07:40)
[2024-08-29] MEDS: Cefazolin 2 GM in 0.9% Normal Saline (100mL Bag) 100 ML IV ×2 (07:58→16:19)
[2024-08-29] MEDS: TRANEXAMIC ACID 1,000 MG in 0.9% Normal Saline (100mL Bag) 100 ML 440 MG IV (07:58)
--- NOTE | 2024-08-29 10:22 | OP.PCM_ITS ---
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 [employer] Salvaging: Burke Nuno Tasks completed by fleet administrative assistant: Other (Kg-mcsvyrg-wdis and neck surgery-Access Surgeon-severe scarring due to thyroidectomy) Additional assistant counsel?: Yes Additional Technology Consultant #2: Mimi Aldridge Tasks completed by assistant counsel #2: Closing, Hemostasis: Electrocautery and Retracting Type of Anesthesia: General RN Documented Start/Stop Times: Operation Date: 08/29/24 07:30 Case Time Into Pre-Op 08/29/24 05:45 Out of Pre-Op 08/29/24 07:24 Anesthesia Start 08/29/24 07:29 Into Room 08/29/24 07:29 Procedure Start 08/29/24 08:07 Procedure End 08/29/24 10:11 Anesthesia End 08/29/24 10:17 Out of Room 08/29/24 10:17 Procedure Start Time: 08:07 Procedure Stop Time: 10:11 Select all DRAINS/GRAFTS/IMPLANTS that apply: Drains Drain details: Uvaldo and Prosthetic device Prosthetic device details: ZimVie Mobi-C cervical disc replacement prosthesis Estimated Blood Loss: 20 cc Specimen collected: No Description of surgery: Preoperative diagnosis: C5-7 disc degeneration with stenosis, with radiculomyelopathy Postoperative diagnosis: same Name of procedure: C5-7 anterior cervical disc replacement - Cervical disc replacement C5-6, CPT code 91464 - Cervical disc replacement C6-7, CPT code 84058/51 Attending surgeon: Eloy Lowe M.D. Co-surgeon: Dr. Burke Nuno, head and neck surgery, access due to previous severe scarring from thyroidectomy Anesthesia: Gen. endotracheal Estimated blood loss: 20 mL Complications: None Instrumentation used: Marlene Biomet Mobi-C cervical disc replacement implants Indications: The patient is a pleasant 38-year-old lady who presented with symptoms of neck pain, progressive right worse than left upper extremity radiation, weakness, worsening difficulty with dexterity and balance. MRI revealed C5-7 disc herniations show central, broad-based causing severe central stenosis. In order to halt the progression of myelopathy, patient requested acuña rgical intervention. All risks and benefits of the procedure were explained to the patient. The risks include but are not limited to infection, bleeding, injury to nerves and vessels, vertebral artery injury, spinal cord injury, paralysis, vocal cord paralysis, injury to esophagus, need for further procedures, adjacent segment degeneration, heterotopic ossification, implant loosening, implant failure, DVT, pulmonary embolism, cardiopulmonary event, etc. Procedure: The patient was identified in the preoperative suite using unique patient identifiers. Skin was marked consent was taken and all questions were answered. The patient was then brought back to the operative room and a timeout was performed. General endotracheal anesthesia was given. Intraoperative neuro monitoring leads were applied. The patient was carefully positioned supine on a regular OR table. A lateral x-ray with a C-arm was done to identify the level and to define the incision. The anterior neck was then prepped and draped in the usual fashion. A final timeout was then performed. A transverse skin incision was then taken to the left of midline 2 fingerbreadths above the clavicle. Subcutaneous tissue was then divided with Bovie. Platysma was identified and cut transversely with scissors. The fascial interval between the sternocleidomastoid and the larynx was developed. Omohyoid was identified and mobilized medially and inferiorly. Carotid sheath was laterally while the esophagus with the larynx was retracted medially to reach the prevertebral fascia. All prevertebral layers of fascia were bluntly dissected and a Waverly pin was placed into one of the bodies. A lateral C-arm image was used to confirm the correct level. Once this was done longus coli muscle was elevated on both sides at and above and below C5-7 discs. Severe scarring was noticed around the left omohyoid muscle making it difficult to access planes easily. Significant scarring between the carotid sheath and prevertebral soft tissue are also noticed requiring additional time for adequate safe exposure. Dr. Nuno assisted with this difficult exposure. Please see his note for additional details. Shadow line retractors were then placed with great care to protect the esophagus. A long handle knife was then used to perform annulotomy at C5-6. Disc fragments were removed with the pituitary. Waverly pins were placed in C5 and C6 for disc distraction. AP view confirmed midline placement of Waverly pins. Curettes were utilized to remove cartilage from the endplates. Discectomy was performed laterally up to the uncovertebral joints. Adequate decompression was performed, PLL was thinned out and partially resected. Foramina were decompressed without taking down the uncovertebral processes. Once the disc space was prepared, trials of various sizes were utilized. Thorough irrigation was given. Mobi-C anterior cervical disc replacement implant of size 15 x 15 mm with 5 mm height was then placed under fluoroscopic guidance. Adequate positioning was noticed on AP and lateral views. The retractors were then moved to the C6-7 disc space and the procedure of complete discectomy and decompression was repeated. Mobi-C implant of 17 x 17 mm with 5 mm height was placed at this level. AP and lateral fluoroscopy confirmed good position. Thorough irrigation was again given. Hemostasis was achieved with FloSeal and bipolar cautery. Randolph drain was placed. Closure was done with 3-0 Vicryl for the platysma and subcutaneous tissue layers and 4-0 Monocryl for the skin. Closure was done around the drain. Steri-Strips were applied and dressing was done with 4 x 4 gauze and Tegaderm. A cervical collar was then applied. The patient was then woken up from anesthesia extubated and taken to PACU in stable condition. Intraoperative neuro monitoring was performed throughout this procedure. Motor evoked potentials were run periodically. All potentials remained at baseline throughout the procedure. I was present for the entire surgery and performed the surgery myself. Technology Consultant Mimi Aldridge PA-C. My physician assistant counsel was a vital part of this case. They were important in appropriate retraction during the case, and protection of soft tissues during the procedure. Their intimate knowledge of the case and my steps aided in safe and expedient completion of the procedure as well as appropriate position of the patient during the surgery. They were also vital in assisting with closure under my direct supervision. Surgical Findings: See operative note Complications Complications: No
--- NOTE | 2024-08-29 10:29 | PCM.POST.ANE ---
Anesthesia: Postop Eval I Current Vital Signs Temperature: 97.2 F Pulse Rate: 78 Blood Pressure: 117/67 Respiratory Rate: 16 Pulse Ox: 99 Oxygen Delivery Method: Nasal Cannula Oxygen Flow Rate (L/min): 2 Fraction of Inspired Oxygen (FIO2): 0.28 Assessment Airway patent: Yes Spontaneous unlabored respirations: Yes Mental status: Awake nausea: No Vomiting: No Anesthesia Complication: No Fluid Hydration Crystalloid volume administer (ml): 1,000 Total IV fluid infused: 1,000 Progress Note Anesthesia document: Postop Eval 1 completed: Yes
--- NOTE | 2024-08-29 11:01 | PCM.OPRPT ---
Operative Report (Standard) Operative Information Date of Procedure: 08/29/24 Pre-Operative Diagnosis: 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, radiculomyelopathy, prior total thyroidectomy Post-Operative Diagnosis: Same Surgery/Procedure Performed: C5-7 cervical disc replacement card doffer: Yes Overhead Crane Truck Loader: Eloy Lowe Tasks completed by library serials assistant: Opening & closing, Dissecting tissue, Removing tissue, Implanting device, Altering tissue, Hemostasis: Electrocautery and Retracting Additional care assistant?: Yes Additional Bottom Presser #2: Mimi Aldridge Tasks completed by care assistant #2: Opening & closing and Retracting Type of Anesthesia: General RN Documented Start/Stop Times: Operation Date: 08/29/24 07:30 Case Time Into Pre-Op 08/29/24 05:45 Out of Pre-Op 08/29/24 07:24 Anesthesia Start 08/29/24 07:29 Into Room 08/29/24 07:29 Procedure Start 08/29/24 08:07 Procedure End 08/29/24 10:11 Anesthesia End 08/29/24 10:17 Out of Room 08/29/24 10:17 Into Recovery 08/29/24 10:20 Procedure Start Time: 08:07 Procedure Stop Time: 10:11 Select all DRAINS/GRAFTS/IMPLANTS that apply: Drains Drain details: Quarter inch [place] Estimated Blood Loss: 20 Specimen collected: No Description of surgery: After appropriate identification appropriate holding area patient was brought to the operating room where general endotracheal anesthesia was administered. I assisted anesthesia with placement of a Nims 7 mm endotracheal tube so that the vocal cords coapted with the tube electrodes and recurrent laryngeal nerve monitoring could be performed alongside of the standard nerve monitoring with spine surgery's case. I also asked that an orogastric tube be placed by anesthesia for purposes of palpating the esophagus if it became necessary to do so. After the neck incision was located by spine surgery based on the patient's x-rays the neck was prepped and draped in usual sterile fashion. Formal timeout was conducted to confirm procedure. Following a timeout a transverse cervical incision was made from the midline for a length of approximately 5 cm. This incision was carried down through the subcutaneous layer with electrocautery and the platysma was incised sharply. Just deep to this level there was a left anterior jugular vein that was controlled with selective electrocautery. Then through blunt dissection we were able to sweep through the areolar attachments between the esophagus and the carotid artery retracting the former medially and the latter laterally. This brought us down to the prevertebral fascia which was incised and afforded us exposure of the vertebrae directly. Dr. Lowe then performed two level total disc arthroplasty between C5-C6 and C6-C7. See his dictation for complete operative details. During the course of the procedure we confirmed that there were no concerning findings with the recurrent laryngeal nerve monitoring specifically. I provided limited assistance with retraction and exposure where necessary. At the completion of the disc replacement the surgical cavity was copiously irrigated and inspected for hemostasis. Identified some slight oozing of the C6 vertebral body which was promptly controlled with selective electrocautery. Then a Uvaldo drain was placed into the depth of the wound adjacent to the vertebra and the platysma was closed around this drain. Skin closure was completed in a subcuticular fashion and patient was awoken from anesthesia and taken to PACU for ongoing recovery. Surgical Findings: ? Scarring between the lateral aspect of the trachea/esophagus and the carotid sheath medially but more deeply the plane open nicely to facilitate appropriate vertebral exposure ? Given the trajectory of our dissection for the vertebral exposure the esophagus and recurrent laryngeal nerve were not directly visualized, however, we were assured of normal nerve function by nerve monitoring failure analysis technician Complications Complications: No Admit VTE Documentation VTE Mechan Device Prophylaxis: SCD's
--- NOTE | 2024-08-29 11:38 | POSTOPAN2_ITS ---
Anesthesia Postop Eval I Sum Postop Eval Completion status Anesthesia document: Postop Eval 1 completed: Yes Anesthesia Postop Eval I Summary Anesthesia Postop Eval I Summary: Anesthesia Postop Eval I: Assessment Summary Airway patent Yes 08/29/24 10:30 ACURA SALES CONSULTANT.NFOR Spontaneous unlabored Yes 08/29/24 10:30 ACURA SALES CONSULTANT.NFOR respirations Mental status Awake 08/29/24 10:30 ACURA SALES CONSULTANT.NFOR nausea No 08/29/24 10:30 ACURA SALES CONSULTANT.NFOR Vomiting No 08/29/24 10:30 ACURA SALES CONSULTANT.NFOR Anesthesia Postop Eval I: Fluid Summary Crystalloid volume administer 1,000 08/29/24 10:30 ACURA SALES CONSULTANT.NFOR (ml) Colloids volume administered ( ml) Blood Product volume administered (ml) Total IV fluid infused 1,000 08/29/24 10:30 ACURA SALES CONSULTANT.NFOR Anesthesia Postop Eval I: Summary Notes Anesthesia Complication No 08/29/24 10:30 ACURA SALES CONSULTANT.NFOR Anesthesia Complication Comment: Post-operative progress note Anesthesia: Postop Eval II Evaluation Mental status: Awake Pain Level: 2 nausea: No Vomiting: No
--- NOTE | 2024-08-29 11:38 | PCM.POSTANE2 ---
Anesthesia Postop Eval I Sum Postop Eval Completion status Anesthesia document: Postop Eval 1 completed: Yes Anesthesia Postop Eval I Summary Anesthesia Postop Eval I Summary: Anesthesia Postop Eval I: Assessment Summary Airway patent Yes 08/29/24 10:30 ADDICTION PROFESSIONAL.NFOR Spontaneous unlabored Yes 08/29/24 10:30 ADDICTION PROFESSIONAL.NFOR respirations Mental status Awake 08/29/24 10:30 ADDICTION PROFESSIONAL.NFOR nausea No 08/29/24 10:30 ADDICTION PROFESSIONAL.NFOR Vomiting No 08/29/24 10:30 ADDICTION PROFESSIONAL.NFOR Anesthesia Postop Eval I: Fluid Summary Crystalloid volume administer 1,000 08/29/24 10:30 ADDICTION PROFESSIONAL.NFOR (ml) Colloids volume administered ( ml) Blood Product volume administered (ml) Total IV fluid infused 1,000 08/29/24 10:30 ADDICTION PROFESSIONAL.NFOR Anesthesia Postop Eval I: Summary Notes Anesthesia Complication No 08/29/24 10:30 ADDICTION PROFESSIONAL.NFOR Anesthesia Complication Comment: Post-operative progress note Anesthesia: Postop Eval II Evaluation Mental status: Awake Pain Level: 2 nausea: No Vomiting: No
--- NOTE | 2024-08-29 11:48 | SUR.PHASEI ---
eras o2 until 1220
[2024-08-29] MEDS: Methocarbamol 500 MG Tablet 1000 MG PO ×3 (13:48→21:47)
[2024-08-29] MEDS: Ensure Surgery 237 ML LIQUID PO ×2 (13:48→16:20)
[2024-08-29] MEDS: dexAMETHasone 4 MG/ML Vial IV ×2 (13:48→17:04)
[2024-08-29] MEDS: Ketorolac 15 MG/ML Vial IV (16:18)
[2024-08-29] MEDS: 0.9% Normal Saline (250mL Bag) 250 ML 15 ML IV (16:19)
[2024-08-29] MEDS: HYDROcodone Bitartrate/Apap 5/325 Tablet PO ×2 (17:04→21:53)
[2024-08-29] MEDS: Morphine 4 MG/ML Syringe IV (18:45)
[2024-08-29] MEDS: 0.9% Saline Lock 10 ML Syringe IV (18:45)
[2024-08-29] MEDS: DULoxetine Hcl 20 MG Capsule PO (21:47)
[2024-08-29] MEDS: Senna/Docusate Sodium 1 Tablet 2 TABLET PO (21:47)
[2024-08-30 00:21] VITALS: BP 102/66; PULSE 59; RESP 16; TEMP 36.9; O2SAT 98
[2024-08-30] MEDS: Cefazolin 2 GM in 0.9% Normal Saline (100mL Bag) 100 ML IV (00:22)
[2024-08-30] MEDS: 0.9% Saline Lock 10 ML Syringe IV ×2 (00:23→05:02)
[2024-08-30] MEDS: dexAMETHasone 4 MG/ML Vial IV ×2 (00:23→05:02)
[2024-08-30] MEDS: Ketorolac 15 MG/ML Vial IV (00:32)
[2024-08-30 04:05] VITALS: BP 102/67; PULSE 65; RESP 15; TEMP 37; O2SAT 98
[2024-08-30] MEDS: HYDROcodone Bitartrate/Apap 5/325 Tablet PO ×2 (04:15→09:24)
[2024-08-30] MEDS: Levothyroxine 150 MCG Tablet PO (05:02)
--- NOTE | 2024-08-30 05:25 | RAD_ITS ---
PROCEDURE: CERV SPINE 2 OR 3 VIEWS 08/30/2024 REASON FOR EXAM: S/P CERVICAL DISC REPLACEMENT TECHNIQUE: 2 views of the cervical spine. FINDINGS: The cervical spine is visualized on the lateral view from the skull base to the top of T1 with some shoulder overlap at C7. Status post intervertebral disc replacement prosthesis C5-6 and C6-7 appear intact and anatomic. No fracture or malalignment. No prevertebral soft tissue swelling. Left-sided anterior neck Uvaldo drain, safety pin and cervical collar. Multiple bilateral surgical clips about the area of the thyroid. Visualized apices appear clear. Edentulous. RAD/Cerv Spine 2 or 3 Views IMPRESSION: Status post intervertebral disc replacement prosthesis C5-6 and C6-7 appear int act and anatomic. No fracture or malalignment. Reading Location: [id number]
[2024-08-30 06:38] LABS: Hematocrit 36.5 % (37-47); Hemoglobin 12.8 g/dL (12.0-15.0); Mean Corp Hgb Conc 35.1 g/dL (32-36); Mean Corpuscular Hgb 30.2 pg (27.0-32.0); Mean Corpuscular Volume 86.1 fL (81-99); Mean Platelet Vol. 11.7 fl (6.2-12.0); Platelet Count 317 K/mm3 (150-450); RBC Distribution Width CV 12.4 % (11.6-14.6); RBC Distribution Width SD 39.2 fl (35.1-43.9); Red Blood Count 4.24 M/mm3 (4.2-5.4); White Blood Count 14.4 K/mm3 (4.4-11.0)
[2024-08-30 06:52] LABS: Anion Gap 12 (5-15); BUN 13 mg/dL (4-19); BUN/Creat Ratio 14.4 RATIO (10-20); Calcium,Total 8.3 mg/dL (7.6-11.0); Carbon Dioxide 21.1 mmol/L (21.0-32.0); Chloride 104 mmol/L (98-108); EST Glomerular Filtration Rate 83 (>60); Glucose 137 mg/dL (70-99); Sodium Level 138 mmol/L (133-145)
[2024-08-30 08:03] VITALS: O2SAT 95
--- NOTE | 2024-08-30 08:23 | PCM.PN.ORT ---
Subjective Subjective Postop day 1 status post C5-7 disc replacement. Patient doing well. Denies significant dysphagia. Says her radicular symptoms have significantly improved. Has been able to walk without any ambulatory aid. Reports good balance. Objective Data Objective Data Vital Signs: Vital Signs Temp Pulse Resp BP Pulse Ox O2 Del Method O2 Flow Rate 98.6 F 65 15 102/67 95 Room Air 4 08/30/24 04:05 08/30/24 04:05 08/30/24 04:05 08/30/24 04:05 08/30/24 08:03 08/30/24 08:03 08/29/24 11:45 FiO2 0.28 08/29/24 10:30 Oxygen Flow Rate (L/min) 4 Oxygen Delivery Method Room Air Weight: 178 lb 9.191 oz Body Mass Index (BMI) 26.4 Intake & Output: Intake and Output for Last 24 Hours 08/28/24 08/29/24 08/30/24 23:59 23:59 23:59 Intake Total 775.00 / 775.00 110 / 110 Balance 775.00 / 775.00 110 / 110 Lab / Micro Data 08/30/24 05:48 08/30/24 05:48 Labs: Laboratory Results - last 24 hr 08/30/24 05:48: WBC 14.4 H, RBC 4.24, Hgb 12.8, Hct 36.5 L, MCV 86.1, MCH 30.2, MCHC 35.1, RDW Std Deviation 39.2, RDW Coeff of Jenn 12.4, Plt Count 317, MPV 11.7, Sodium 138, Potassium 4.0, Chloride 104, Carbon Dioxide 21.1, Anion Gap 12, BUN 13, Creatinine 0.90, Estim Creat Clear Calc 94.60, Est GFR (MDRD) Non-Af 83, BUN/Creatinine Ratio 14.4, Glucose 137 H, Calcium 8.3 Micro: Microbiology 08/23/24 14:02 Swab (Method) Nasal Screen MRSA/MSSA - Final Radiography Diagnostic Testing: Radiology Impression Cervical Spine X-Ray 08/29/24 06:30 IMPRESSION: Fluoroscopic guidance was used intraoperatively. Please refer to operative note for further details. [facility] Cervical Spine X-Ray 08/30/24 05:25 IMPRESSION: Status post intervertebral disc replacement prosthesis C5-6 and C6-7 appear intact and anatomic. No fracture or malalignment. Reading Location: [id number] Physical Exam Narrative Dressing?CDI. Neurologic evaluation of upper extremity shows 5 x 5 power normal shows normal sensations in all dermatomes. Assessment & Plan Assessment/Plan (1) S/P cervical disc replacement: PLAN: Plan Postop day 1 status post C5-7 disc replacement. X-rays done. Reviewed. Look good. Walked the hallways with PT. Drain removed this morning. Okay to go home and follow-up in 2 weeks.
--- NOTE | 2024-08-30 08:52 | PCM.PN.HOSP ---
Subjective Subjective Doing well, no issues overnight Objective Data Objective Data Vital Signs: Vital Signs Temp Pulse Resp BP Pulse Ox O2 Del Method O2 Flow Rate 98.6 F 65 15 102/67 95 Room Air 4 08/30/24 04:05 08/30/24 04:05 08/30/24 04:05 08/30/24 04:05 08/30/24 08:03 08/30/24 08:03 08/29/24 11:45 FiO2 0.28 08/29/24 10:30 Oxygen Flow Rate (L/min) 4 Oxygen Delivery Method Room Air Weight: 178 lb 9.191 oz Body Mass Index (BMI) 26.4 Intake & Output: Intake and Output for Last 24 Hours 08/29/24 08/30/24 08/31/24 03:59 03:59 03:59 Intake Total 885.00 / 885.00 Balance 885.00 / 885.00 Lab / Micro Data 08/30/24 05:48 08/30/24 05:48 Labs: Laboratory Results - last 24 hr 08/30/24 05:48: WBC 14.4 H, RBC 4.24, Hgb 12.8, Hct 36.5 L, MCV 86.1, MCH 30.2, MCHC 35.1, RDW Std Deviation 39.2, RDW Coeff of Jenn 12.4, Plt Count 317, MPV 11.7, Sodium 138, Potassium 4.0, Chloride 104, Carbon Dioxide 21.1, Anion Gap 12, BUN 13, Creatinine 0.90, Estim Creat Clear Calc 94.60, Est GFR (MDRD) Non-Af 83, BUN/Creatinine Ratio 14.4, Glucose 137 H, Calcium 8.3 Micro: Microbiology 08/23/24 14:02 Swab (Method) Nasal Screen MRSA/MSSA - Final Radiography Diagnostic Testing: Radiology Impression Cervical Spine X-Ray 08/29/24 06:30 IMPRESSION: Fluoroscopic guidance was used intraoperatively. Please refer to operative note for further details. Reading Location: [facility] Cervical Spine X-Ray 08/30/24 05:25 IMPRESSION: Status post intervertebral disc replacement prosthesis C5-6 and C6-7 appear intact and anatomic. No fracture or malalignment. Reading Location: [facility] Physical Exam Narrative General: Alert, Oriented x3, Cooperative, No apparent distress HEENT: Atraumatic, PERRLA, EOMI, Normocephalic Oral: Moist Mucosa Neck: Supple, No JVD Lungs: Clear to auscultation, Normal air movement, No rhonchi, No wheeze, No rales Cardiovascular: Regular rate, Regular Rhythm, Normal S1, Normal S2, No murmurs Abdomen: Soft, Non Tender, Non-Distended, No Hepato-splenomegaly Extremities: No edema, Capillary Refill Less than 3 Seconds Skin: Dressing CDI Musculoskeletal: No Tenderness to Palpation of Joints or Extremities Neurological: No focal neurological deficits, right hand weakness she states is improved Psych/Mental Status: Normal Affect, Appropriate Assessment & Plan Assessment/Plan (1) S/P cervical disc replacement: PLAN: Plan 1. 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 Pain management ? Discharge planning per primary ? Leukocytosis is reactive ? Lab work is unremarkable otherwise ? Medically stable for discharge 2. History of thyroidectomy ? Continue with Synthroid 3. Anxiety/depression ? Stabilized ? Continue with her home medications 4. GERD ? Stable ? Continue with PPI Charges/Coding Visit Charges Office Visits / Consults: 60763 OV L3 New 30min
[2024-08-30 09:22] VITALS: BP 125/75; PULSE 54; RESP 16; TEMP 36.7; O2SAT 99
[2024-08-30] MEDS: Ensure Surgery 237 ML LIQUID PO (09:25)
[2024-08-30] MEDS: Methocarbamol 500 MG Tablet 1000 MG PO (09:25)
[2024-08-30] MEDS: Pantoprazole Sodium 40 MG Tablet PO (09:25)
[2024-08-30] MEDS: Meloxicam 15 MG Tablet PO (09:25)
[2024-08-30] MEDS: Senna/Docusate Sodium 1 Tablet 2 TABLET PO (09:25)
--- NOTE | 2024-08-30 09:29 | CASEMGMT ---
MARIBEL TORIBIO Assessment: Face to Face with pt for initial transition planning/care coordination assessment. MARIBEL TORIBIO introduced self and role at [facility], pt voices understanding and consents to assessment. Pt is A&O x4 and answers all questions appropriately at this time. Pt sitting up in chair, dressed and ready to go home. Care providers, pharmacy, and demographics verified/updated. Admitting Dx: cervical disc arthroplasty Strata Score: 2 PCP:Geovanna Specialists:drake Lowe; Friend, GI Preferred Pharmacy: [facility] Retail Insurance: [facility] Prescription Benefit: yes LNOK: Adilson Sparks, brother Living Arrangements: Pt lives with 3 children in a two story home with 1 step to enter with a rail. Pt reports she is typically I in ADL/IADLs and denies concerns at home. Transportation: Pt drives self and denies concerns with transportation. Pt family and friends will assist with transportation until she can drive again. DME:toilet riser, rollator, shower chair HHC/SNF: Denies hx of Pt states no concerns with going home at time of dc. Pt states no further concerns/needs. CM to follow. Advised pt to ask CM if any further questions/concerns/needs arise, voices understanding. Pt Goal: Home Plan: Home Derik LÓPEZ CM
== END 2024-08-30 09:55 | disposition home or self-care (01) ==
LOC: SDC 10:59 → MS3 10:59
PROVIDERS: Anesthesiology; Student in an Organized Health Care Education/Training Program; Admitting Provider Orthopaedic Surgery Orthopaedic Surgery of the Spine; PCP Nurse Practitioner Family; Referring Provider Orthopaedic Surgery Orthopaedic Surgery of the Spine; Visit Provider Orthopaedic Surgery Orthopaedic Surgery of the Spine
PROC: (CPT 22856; principal; 2024-08-29 07:00)
DX: M48.02 Spinal stenosis, cervical region (principal); E89.0 Postprocedural hypothyroidism; F17.210 Nicotine dependence, cigarettes, uncomplicated; M50.022 Cervical disc disorder at C5-C6 level with myelopathy; M54.12 Radiculopathy, cervical region; L90.5 Scar conditions and fibrosis of skin; F32.A Depression, unspecified; F41.9 Anxiety disorder, unspecified; Z79.899 Other long term (current) drug therapy; K21.9 Gastro-esophageal reflux disease without esophagitis
CPT/HCPCS: 22856; 22858; 00670; 21556; J2405; 36415; 72040; 76000; 80048; 83036; 83735; 84443; 85025; 85027; 86703; 86706; 86708; 86803; 86850; 86900; 86901; 87081; 93005; 94668; 96365; 96366; 96375; 96376; 97116; 97162; 97166; 99221; A4648; A4216; G0378

== ENCOUNTER 2024-10-04 16:30 | Outpatient (RCR) | payer MEDICAID, SELFPAY ==
--- NOTE | 2024-10-01 18:35 | HP.PTEVAL_ITS ---
Patient's Visit Information Visit Information Visit Information: AMY VILLEDA is a 39 year old F referred to Physical Therapy by Dr. Eloy Lowe MD with a diagnosis of SPECIFIED POSTDOCTORAL STATE( S/P CERVICAL DISC REPLACEMENT). Date of Evaluation: 10/01/24 Physical Therapist: Osmin Hernandez, PT, Cert MDT, OCS Visit Plan Frequency: 2x /Week Duration: 4 Weeks Plan: S/P CERVICAL REPLACEMENT 08/29 NO LIFTING PT INTERVENTIONS CERVICAL ROM ( GENTLE) ,POSTURAL EX'S ,BUE STRENGTHENING ,ACTIVITY MODIFICATION Subjective Subjective: A 39 year old female presents post cervical fusion, surgery was on August 292024 by DR Lowe . Pt reports that prior to surgery she has severe limited and painful ROM with right shoulder and weakness with dropping things often, and consistent radicular symptoms into the right arm and hand and occasionally into left arm, primarily into thumb and pointer finger. Pt reports after surgery she has less numbness and tingling and less consistency with neck aching pain. Pt reports she has an easier time in the shower and has is unsure id strength has returned because limits her to lifting less than a gallon of milk. Following surgery for the first week pt was wearing [place] brace when sleeping or when pain was really intense but after week 1 she weaned off of wearing the brace. After 2 week follow-up on September 13 said to use brace as needed. Current pain in neck and arm is worse with reaching overhead or lifting objects like a cup of water. Pt reports current pain is better with ice the most but also with rest. Tends to use left arm more often now due to right said causing pain. Pt denies using ibuprofen or tylenol because she has issues with her kidneys. Pt reports she is not currently working and is on FMLA. Return to work date is tentative but estimated ~3 months. 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 Pt is single with 4 kids total, 3 kids live at home, andn is a public health registrar for 11yo disabled child. Pt enjoys gardening as her hobbies and reports that she can still partake in that following he surgery. SOCAIL: single VOCATION: Retail Pain Neck: Pain Intensity (Out of 10): 4 Pain Intensity Range: 10 Comment: aching Right Shoulder: Pain Intensity (Out of 10): 4 Pain Intensity Range: 10 Comment: aching Right Hand: Pain Intensity (Out of 10): 3 Pain Intensity Range: 10 Comment: numbness/ tingling/shoots Objective Objective: POSTURE: Rounded shoulders head forward NEURO: - Xie's , gross BUE DTR's 2+ (normal) ,c/o some paresthesia/tingling in hand right PALAPTION: Tenderness to palpation of bilateral cervical paraspinals, right side d UT and thoracic paraspinals AROM BUE: Moderate limitation of right shoulder abduction and flexion CERVICAL ROM: Moderate limitation with right sided rotation and side bending with severe moderate decrease in flexion ROM MMT: Right abd. 4-/5; left abd. 4-/5; right elbow ext. 4/5; left elbow ext. 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) right 80# ,left 90# Special Tests C/S Radiculapathy - Left Upper limb tension test: Negative C/S Radiculapathy - Right Upper limb tension test: Positive Balance/Special Test Scores Oswestry Neck Score: 23 Goals Goal 1:: Patient to be I with HEP for cervical supine surgery Goal Time Frame: 4-6 Weeks Goal 2:: Patient to improve cervical ROM for function for driving and ADLS Goal Time Frame: 4-6 Weeks Goal 3:: Patient to demonstrate 50% improvement with ADLS and housework tasks Goal Time Frame: 4-6 Weeks Goal 4:: Patient to improve to improve neck oswestry score by 5 points to improve QOL and function Goal Time Frame: 4-6 Weeks Goal 5:: Patient be able to perform ADLS and housework tasks with min limiations Goal Time Frame: 4-6 Weeks Rehabilitation Potential Physical Therapy Diagnosis: This patient underwent s/p cervical disc displacement August [address] Lowe with decrease cervical ROM , weakness in arms ,pain thus benefit from skilled PT to address current impairments Rehabilitation Potential: Good Anticipated Interventions Patient/Client Instruction: Educate patient on: Condition and Plan of Care For the Purpose of:: To decrease pain, To increase ROM, To improve muscle performance and motor function, To improve ability to perform ADL's, To increase tolerance to activity/condition/position, To improve ability of physical actions for home/community/work/leisure, To improve health of tissue, To decrease soft tissue restriction, To increase flexibility/ROM and To reduce risk of recurrence Therapeutic Exercise to Include: Strength training, Postural training, Flexibilty training and Active ROM Comment: BUE For the Purpose of:: To decrease pain, To increase ROM, To improve muscle performance and motor function, To improve ability to perform ADL's, To increase tolerance to activity/condition/position, To improve ability of physical actions for home/community/work/leisure, To improve health of tissue, To decrease soft tissue restriction, To increase flexibility/ROM and To improve endurance Manual Therapy Techniques to Include: Soft tissue mobilization Comment: gentle For the Purpose of:: To decrease pain, To increase ROM, To improve nutrient delivery to tissue, To increase oxygenation perfusion, To improve health of tissue and To decrease soft tissue restriction TENS: Yes IF ES: Yes Cryotherapy (ice pack, ice massage): Yes Thermo therapy (hot pack): Yes Ultrasound (thermal/non thermal): Yes For the Purpose of:: To decrease pain, To increase ROM, To improve nutrient delivery to tissue, To increase oxygenation perfusion, To improve health of tissue and To decrease soft tissue restriction Text: Thank you for the opportunity to evaluate your patient. For Medicare and Medicare HMO plans, please review the plan of care and approve it. It will need to be FAXED BACK to us at [phone] for Medicare purposes. For Medicare only, by signing this I certify the plan of care. Please let me know if there are questions or concerns regarding this plan of care. Physician Signature: Date:
--- NOTE | 2024-10-02 09:35 | HP.PTEVAL_ITS ---
Patient's Visit Information Visit Information Visit Information: AMY VILLEDA is a 39 year old F referred to Physical Therapy by Dr. Eloy Lowe MD with a diagnosis of SPECIFIED POSTDOCTORAL STATE( S/P CERVICAL DISC REPLACEMENT). Date of Evaluation: 10/01/24 Physical Therapist: Osmin Hernandez, PT, Cert MDT, OCS Visit Plan Frequency: 2x /Week Duration: 4 Weeks Plan: S/P CERVICAL REPLACEMENT 08/29 NO LIFTING PT INTERVENTIONS CERVICAL ROM ( GENTLE) ,POSTURAL EX'S ,BUE STRENGTHENING ,ACTIVITY MODIFICATION Subjective Subjective: A 39 year old female presents post cervical fusion, surgery was on August 292024 [address] Lowe . Pt reports that prior to surgery she had severe limited and painful AROM with right shoulder and weakness with dropping things often, and consistent radicular symptoms into the right arm and hand and occasionally into left arm, primarily into thumb and pointer finger. Pt reports after surgery she has less numbness and tingling and only intermittent neck aching pain instead of constant. Pt reports she has an easier time in the shower but is unsure if her strength has returned because limits her to lifting less than a gallon of milk. Following surgery for the first week pt was wearing hard [place] brace when sleeping or when pain was really intense but after week 1 she weaned off of wearing the brace. After 2 week follow-up on September 13 said to use brace as needed. Current pain in neck and arm is worse with reaching overhead or lifting objects like a cup of water. Pt reports current pain is the best with ice but also with rest. Tends to use left arm more often now due to right said causing pain. Pt denies using ibuprofen or tylenol because she has issues with her kidneys. Pt reports she is not currently working and is on FMLA. Return to work date is tentative but estimated ~3 months. 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 Pt is single with 4 kids total, 3 kids live at home, andn is a pallet stone inserter for 11yo disabled child. Pt enjoys gardening as her hobbies and reports that she can still partake in that following the surgery but this causes her pain afterwards. SOCIAL: single VOCATION: Retail Pain Neck: Pain Intensity (Out of 10): 4 Pain Intensity Range: 10 Comment: aching Right Shoulder: Pain Intensity (Out of 10): 4 Pain Intensity Range: 10 Comment: aching Right Hand: Pain Intensity (Out of 10): 3 Pain Intensity Range: 10 Comment: numbness/ tingling/shoots Objective Objective: POSTURE: Rounded shoulders head forward NEURO: - Xie's , gross BUE DTR's 2+ (normal) ,c/o some paresthesia/tingling in hand right PALAPTION: Tenderness to palpation of bilateral cervical paraspinals, right sided UT and thoracic paraspinals AROM BUE: Moderate limitation of right shoulder abduction and flexion CERVICAL ROM: Moderate limitation with right sided rotation and side bending with severe moderate decrease in flexion ROM MMT: Right abd. 4-/5 with pain; left abd. 4-/5; right elbow ext. 4/5; left elbow ext. 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) right 80# ,left 90# Special Tests C/S Radiculapathy - Left Upper limb tension test: Negative C/S Radiculapathy - Right Upper limb tension test: Positive Balance/Special Test Scores Oswestry Neck Score: 23 Goals Goal 1:: Patient to be I with HEP for cervical supine surgery Goal Time Frame: 4-6 Weeks Goal 2:: Patient to improve cervical ROM for function for driving and ADLS Goal Time Frame: 4-6 Weeks Goal 3:: Patient to demonstrate 50% improvement with ADLS and housework tasks Goal Time Frame: 4-6 Weeks Goal 4:: Patient to improve to improve neck oswestry score by 5 points to improve QOL and function Goal Time Frame: 4-6 Weeks Goal 5:: Patient be able to perform ADLS and housework tasks with min limiations Goal Time Frame: 4-6 Weeks Rehabilitation Potential Physical Therapy Diagnosis: This patient underwent s/p cervical disc displacement August [address] Lowe with decrease cervical ROM , weakness in arms ,pain thus benefit from skilled PT to address current impairments Rehabilitation Potential: Good Anticipated Interventions Patient/Client Instruction: Educate patient on: Condition and Plan of Care For the Purpose of:: To decrease pain, To increase ROM, To improve muscle performance and motor function, To improve ability to perform ADL's, To increase tolerance to activity/condition/position, To improve ability of physical actions for home/community/work/leisure, To improve health of tissue, To decrease soft tissue restriction, To increase flexibility/ROM and To reduce risk of recurrence Therapeutic Exercise to Include: Strength training, Postural training, Flexibilty training and Active ROM Comment: BUE For the Purpose of:: To decrease pain, To increase ROM, To improve muscle performance and motor function, To improve ability to perform ADL's, To increase tolerance to activity/condition/position, To improve ability of physical actions for home/community/work/leisure, To improve health of tissue, To decrease soft tissue restriction, To increase flexibility/ROM and To improve endurance Manual Therapy Techniques to Include: Soft tissue mobilization Comment: gentle For the Purpose of:: To decrease pain, To increase ROM, To improve nutrient delivery to tissue, To increase oxygenation perfusion, To improve health of tissue and To decrease soft tissue restriction TENS: Yes IF ES: Yes Cryotherapy (ice pack, ice massage): Yes Thermo therapy (hot pack): Yes Ultrasound (thermal/non thermal): Yes For the Purpose of:: To decrease pain, To increase ROM, To improve nutrient delivery to tissue, To increase oxygenation perfusion, To improve health of tissue and To decrease soft tissue restriction Text: Thank you for the opportunity to evaluate your patient. For Medicare and Medicare HMO plans, please review the plan of care and approve it. It will need to be FAXED BACK to us at [phone] for Medicare purposes. For Medicare only, by signing this I certify the plan of care. Please let me know if there are questions or concerns regarding this plan of care. Physician Signature: Date:
--- NOTE | 2024-12-17 16:25 | HP.PT.NRP ---
Patient Information Patient Information: AMY VILLEDA was seen in my office for initial evaluation on 10/01/24. The following Plan of Care was established for this patient: POC Established Initial Frequency: 2x /Week Initial Duration: 4 Weeks Anticipated Interventions Patient/Client Instruction: Educate patient on: Condition and Plan of Care For the Purpose of:: To decrease pain, To increase ROM, To improve muscle performance and motor function, To improve ability to perform ADL's, To increase tolerance to activity/condition/position, To improve ability of physical actions for home/community/work/leisure, To improve health of tissue, To decrease soft tissue restriction, To increase flexibility/ROM and To reduce risk of recurrence Therapeutic Exercise to Include: Strength training, Postural training, Flexibilty training and Active ROM For the Purpose of:: To decrease pain, To increase ROM, To improve muscle performance and motor function, To improve ability to perform ADL's, To increase tolerance to activity/condition/position, To improve ability of physical actions for home/community/work/leisure, To improve health of tissue, To decrease soft tissue restriction, To increase flexibility/ROM and To improve endurance Manual Therapy Techniques to Include: Soft tissue mobilization Comment: gentle For the Purpose of:: To decrease pain, To increase ROM, To improve nutrient delivery to tissue, To increase oxygenation perfusion, To improve health of tissue and To decrease soft tissue restriction TENS: Yes IF ES: Yes Cryotherapy (ice pack, ice massage): Yes Thermo therapy (hot pack): Yes Ultrasound (thermal/non thermal): Yes For the Purpose of:: To decrease pain, To increase ROM, To improve nutrient delivery to tissue, To increase oxygenation perfusion, To improve health of tissue and To decrease soft tissue restriction Last Seen Last Seen: This patient was last seen in our office . Pertinent comments regarding their Physical therapy will appear below: Patient was seen for PT for cervical disc replacement thus d/c At this point I will be discontinuing this patient from physical therapy. I would be happy to see this patient again in the future if found appropriate by the physician. Thank you! Osmin Hernandez, PT, Cert MDT, OCS Balance/Gait/Functional tests Balance/Special Test Scores Oswestry Neck Score: 23
== END 2024-10-04 19:00 | disposition home or self-care (01) ==
LOC: PT 16:30
PROVIDERS: PCP Nurse Practitioner Family; Referring Provider Orthopaedic Surgery Orthopaedic Surgery of the Spine; Visit Provider Orthopaedic Surgery Orthopaedic Surgery of the Spine
DX: Z98.890 Other specified postprocedural states (principal)
CPT/HCPCS: 97110; 97162

== ENCOUNTER 2024-10-06 15:59 | Emergency (ER) | payer MEDICAID, SELFPAY ==
[2024-10-06 15:59] VITALS: BP 139/79; PULSE 79; RESP 16; TEMP 36.8; O2SAT 98; BMI 27.1
[2024-10-06] MEDS: Ondansetron 4 MG/2 ML Vial IV (17:04)
[2024-10-06] MEDS: Morphine 4 MG/ML Syringe IV (17:04)
--- NOTE | 2024-10-06 17:25 | RAD_ITS ---
PROCEDURE: CERV SPINE 4 OR 5 VIEWS 10/06/2024 REASON FOR EXAM: NECK PAIN AFTER LIFTING, RECENT SURGERY TECHNIQUE: CERV SPINE 4 OR 5 VIEWS COMPARISON: C-spine radiographs 09/13/2024. FINDINGS: Vertebrae: The vertebral body heights are maintained. No obvious acute fracture. Disc spaces: Prior intervertebral disc spacers at C5-6 and C6-7. The remaining disc spaces are grossly maintained. Alignment: No traumatic listhesis. Soft tissues: Diffuse surgical clips throughout the anterior neck. RAD/Cerv Spine 4 or 5 Views IMPRESSION: No acute cervical finding. Reading Location: [id number]
--- OUTSIDE RECORDS SUMMARY | 2024-10-06 17:30 | XMS RPT_ITS | CCD ---
Author Organization [facility] Care Team Providers Care [employer] Supervisor Name Role Phone Dr. Koko Kent Primary Care Provider [phone] Dr. Koko Kent Referring Provider [phone] ANTOINE Tellez Attending Provider Unavailab mack Valerio SAMPLE CARRIER, SAMPLE CARRIER-C Mika Attending Provider [phone] Dr. Tara Rob Attending Provider Dr. Bird Chen Attending Provider [phone] Dr. Tara Rob Referring Provider [phone] Dr. Tara Rob Other Provider Dr. Koko Kent Attending Provider [phone] Dr. Bolivar Saldana Attending Provider Tara SAMPLE CARRIER, SAMPLE CARRIER-C Lianne Tamayo Attending Provider [phone] Dr. Koko Kent Primary Care Provider [phone] Dr. Koko Kent Referring Provider [phone] Dr. Burke Nuno Attending Provider Dr. Koko Kent Primary Care Provider [phone] 0) Dr. Koko Kent Referring Provider [phone] Dr. Bird Chen Attending Provider [phone] Iman SAMPLE CARRIER, SAMPLE CARRIER-C Mika Attending Provider [phone]) Dr. Jules Rene Attending Provider [phone]) Dr. Jules Rene Other Provider [phone] Koko Kent Primary Care Provider [phone] Dr. Koko Kent Referring Provider [phone] Donte, Dr. Sims Primary Care Provider [phone] Donte, Dr. Sims Referring Provider [phone] KOKO KENT MD Primary Care [phone] Donte, Dr. Sims Primary Care Provider [phone] Donte, Dr. Sims Referring Provider [phone] Donte, Dr. Sims Attending Provider [phone] Tara SAMPLE CARRIER, SAMPLE CARRIER-C Lianne Tamayo Attending Provider 1(3 [phone]) Dr. Flavio Nieves Attending Provider 1(3 [phone] Dr. Tiana Sorensen Referring Provider Iman SAMPLE CARRIER, SAMPLE CARRIER-C Mika Attending Provider [phone] Dr. Burke Nuno Attending Provider Koko Kent MD Primary Care Provider 1(3 [phone] Donte, Dr. Sims Primary Care Provider [phone] Donte, Dr. Sims Referring Provider [phone] Edgard, Dr. Vicente Attending Provider [phone] Dr. Eder Barillas Emergency Provider Dr. Tara Rob Admit Provider Dr. Tara Rob Attending Provider Dr. Tara Rob Other Provider Dr. Koko Kent Primary Care Provider [phone] Dr. Koko Kent Attending Provider [phone] Dr. Koko Kent Referring Provider [phone] Dr. Flavio Nieves Attending Provider [phone] Dr. Tiana Sorensen Referring Provider Tara SAMPLE CARRIER, SAMPLE CARRIER-C Lianne Tamayo Attending Provider [phone] Iman DEGROOT, SAMPLE CARRIER-C Mika Attending Provider [phone]) Dr. Burke Nuno Attending Provider Dr. Eder Barillas Emergency Provider Dr. Tara Rob Admit Provider Dr. Tara Rob Attending Provider [phone] Dr. Tara Rob Other Provider CINTHYA Gar Attending Provider [phone] Dr. Koko Kent Primary Care Provider [phone] Dr. Koko Kent Referring Provider [phone] Tara DEGROOT, MIKAYLA-C Lianne Tamayo Attending Provider [phone] [phone] Dr. Koko Kent Primary Care Provider [phone] Dr. Koko Kent Referring Provider [phone] Iman DEGROOT SAMPLE CARRIER-C Mika Attending Provider [phone] Dr. Burke Nuno Attending Provider Dr. Eder Barillas Emergency Provider Dr. Tara Rob Admit Provider Dr. Tara Rob Attending Provider [phone] Dr. Tara Rob Other Provider Tara DEGROOT, SAMPLE CARRIER-C Lianne Tamayo Attending Provider [phone] CINTHYA Gar Attending Provider [phone] ANTOINE Yang Attending Provider Koko Kent MD Primary Care Provider [phone] GEOVANNA DORSEY - SEFERINO, AVIVA Hill Primary Care Phys ician GEOVANNA BEAM BUILDER - PEARL DIGGER, AVIVA Hill Primary Care U navailable GEOVANNA BEAM BUILDER - PEARL DIGGER, AVIVA Hill Attending U navailable GEOVANNA BEAM BUILDER - PEARL DIGGER, AVIVA Hill Attending U navailable GEOVANNA BEAM BUILDER - PEARL DIGGER, AVIVA Hill Primary Care U navailable GEOVANNA BEAM BUILDER - PEARL DIGGER, AVIVA Hill Primary Care U navailable GEOVANNA BEAM BUILDER - PEARL DIGGER, AVIVA Hill Attending U ursula HAN MD, SANDRA Cortez Attending Unavailable GEOVANNA BEAM BUILDER - PEARL DIGGER, AVIVA Hill Primary Care U navailable GEOVANNA BEAM BUILDER - PEARL DIGGER, AVIVA Hill Primary Care U navailable GEOVANNA BEAM BUILDER - PEARL DIGGER, AVIVA Hill Attending U navailable GEOVANNA BEAM BUILDER - PEARL DIGGER, AVIVA Hill Attending U navailable GEOVANNA BEAM BUILDER - PEARL DIGGER, AVIVA Hill Primary Care U navailable GEOVANNA BEAM BUILDER - PEARL DIGGER, AVIVA Hill Attending U navailable GEOVANNA BEAM BUILDER - PEARL DIGGER, AVIVA Hill Primary Care U navailable VENKATESH BEAM BUILDER-PEARL DIGGER, GEE Beckford Attending U navailable GEOVANNA BEAM BUILDER - PEARL DIGGER, AVIVA Hill Primary Care U KOKO Hopkins MD Primary Care Unavailab NAYELY Wynn Attending Unavailable GEOVANNA BEAM BUILDER - PEARL DIGGER, AVIVA Hill Primary Care U navailable GEOVANNA BEAM BUILDER - PEARL DIGGER, AVIVA Hill Attending U Koko Hopkins MD Primary Care Provider Geovanna PEARL DIGGER, Aviva Hill Primary Care Provider GEOVANNA BEAM BUILDER - PEARL DIGGER, AVIVA Hill Attending U navailable GEOVANNA BEAM BUILDER - PEARL DIGGER, AVIVA Hill Primary Care U navailable GEOVANNA BEAM BUILDER - PEARL DIGGER, AVIVA Hill Primary Care U navailable GEOVANNA BEAM BUILDER - PEARL DIGGER, AVIVA Hill Attending U navailable GEOVANNA BEAM BUILDER - PEARL DIGGER, AVIVA Hill Attending U navailable GEOVANNA BEAM BUILDER - PEARL DIGGER, AVIVA Hill Primary Care U navailable GEOVANNA BEAM BUILDER - PEARL DIGGER, AVIVA Hill Primary Care U navailable THAO WRIGHT DO Attending Unavailable GEOVANNA BEAM BUILDER - PEARL DIGGER, AVIVA Hill Attending U navailable GEOVANNA BEAM BUILDER - PEARL DIGGER, AVIVA Hill [facility] Attending Unavailable OLEGHE, EFEWONGBE B Primary Care Unavailable TIDIONISIO, AV P Referring Unavailable OLEGHE, EFEWONGBE B Primary Care Unavailable MEMA, AV P Referring Unavailable OLEJAIMEE, EFEWONGBE B Primary Care Unavailable GEOVANNA, AVIVA Hill Primary Care Unavailable MARIO HIDALGO Referring Unavailable GEOVANNA, AVIVA Hill Primary Care Unavailable BRITTNEY JOSE Attending Unavailable GEOVANNAAVIVA OVIEDO Primary Care Unavailable Friend, Jules Attending Unavailable Friend, Jules Referring Unavailable Geovanna SAMPLE CARRIER, Aviva Pfeiffer Primary Care Unav ailable Wilkes SAMPLE CARRIER, Aviva Pfeiffer Primary Care Unav ailable Friend, Jules Attending Unavailable Friend, Jules Referring Unavailable Marcelo Loza Attending Unavailable Geovanna SAMPLE CARRIER, Aviva Pfeiffer Primary Care Unav ailable Burke Nuno Attending Unavailable Lowe, Eloy Referring Unavailable Lowe, Eloy Admitting Unavailable Lowe, Eloy Consulting Unavailable Wilkes SAMPLE CARRIER, Aviva Pfeiffer Primary Care Unav ailable Wilkes SAMPLE CARRIER, Aviva Pfeiffer Referring Unav ailable Geovanna SAMPLE CARRIER, Aviva Pfeiffer Primary Care Unav ailable Geovanna SAMPLE CARRIER, Aviva Pfeiffer Attending Unav ailMimi Walsh Attending Unavailable Mimi Aldridge Referring Unavailable Wilkes SAMPLE CARRIER, Aviva Pfeiffer Primary Care Unav ailable Eloy Lowe Referring Unavailable Lowe, Eloy Admitting Unavailable Lowe, Eloy Attending Unavailable Talat Mckeon Consulting Unavailable Wilkes SAMPLE CARRIER, Aviva Pfeiffer Primary Care Unav ailable Friend, Jules Attending Unavailable Wilkes SAMPLE CARRIER, Aviva Pfeiffer Referring Unav ailable Wilkes SAMPLE CARRIER, Aviva Pfeiffer Primary Care Unav ailable Wilkes SAMPLE CARRIER, Aviva Pfeiffer Primary Care Unav ailable Ravin Hill Attending Unavailable Lowe, Eloy Attending Unavailable Talat Mckeon Consulting Unavailable Geovanna SAMPLE CARRIER, Aviva Pfeiffer Primary Care Unav ailable Friend, Jules Consulting Unavailable Friend, Jules Attending Unavailable Geovanna SAMPLE CARRIER, Aviva Pfeiffer Referring Unav ailable Talat Mckeon Attending Unavailable Wilkes SAMPLE CARRIER, Aviva Pfeiffer Primary Care Unav ailable Wilkes SAMPLE CARRIER, Aviva Pfeiffer Attending Unav ailable Eloy Lowe Referring Unavailable Bird Chen Attending Unavailable Wilkes SAMPLE CARRIER, Aviva Pfeiffer Primary Care Unav ailable Bird Chen Attending Unavailable Wilkes SAMPLE CARRIER, Aviva Pfeiffer Primary Care Unav ailable MarcMaddy le Attending Unavailable Wilkes SAMPLE CARRIER, Aviva Pfeiffer Referring Unav ailable Geovanna SAMPLE CARRIER, Aviva Pfeiffer Primary Care Unav ailable Friend, Jules Attending Unavailable Wilkes SAMPLE CARRIER, Aviva Pfeiffer Referring Unav ailable Joyce SCHULTZ, Jefe Tamayo Attending Unavailable Marcanthony, Maddy Referring Unavailable Marcanthony, Maddy Attending Unavailable Wilkes SAMPLE CARRIER, Aviva Pfeiffer Primary Care Unav ailable Friend, Jules Attending Unavailable Wilkes SAMPLE CARRIER, Aviva Pfeiffer Referring Unav ailable Wilkes SAMPLE CARRIER, Aviva Pfeiffer Primary Care Unav ailable Geovanna SAMPLE CARRIER, Aviva Pfeiffer Primary Care Unav ailable Luis CarlosMimi Attending Unavailable Geovanna SAMPLE CARRIER, Aviva Pfeiffer Referring Unav ailable Lowe, Eloy Referring Unavailable Lowe, Eloy Consulting Unavailable Lowe, Eloy Attending Unavailable Geovanna SAMPLE CARRIER, Aviva Pfeiffer Primary Care Unav ailable Talon, Maddy Attending Unavailable MarcanthonyMaddy Referring Unavailable Wilkes SAMPLE CARRIER, Aviva Pfeiffer Primary Care Unav ailable Luis CarlosMimi Attending Unavailable Wilkes SAMPLE CARRIER, Aviva Pfeiffer Referring Unav ailable Geovanna SAMPLE CARRIER, Aviva Pfeiffer Primary Care Unav ailable Lowe, Eloy Referring Unavailable Lowe, Eloy Attending Unavailable Geovanna SAMPLE CARRIER, Aviva Pfeiffer Primary Care Unav ailable Lowe, Eloy Attending Unavailable Geovanna SAMPLE CARRIER, Aviva Pfeiffer Referring Unav ailable Geovanna SAMPLE CARRIER, Aviva Pfeiffer Primary Care Unav ailable Burke Nuno Attending Unavailable Geovanna SAMPLE CARRIER, Aviva Pfeiffer Primary Care Unav ailable Wilkes SAMPLE CARRIER, Aviva Pfeiffer Referring Unav ailable Lowe, Eloy Attending Unavailable Wilkes SAMPLE CARRIER, Aviva Pfeiffer Referring Unav ailable Wilkes SAMPLE CARRIER, Aviva Pfeiffer Primary Care Unav ailable Bird Chen Attending Unavailable Wilkes SAMPLE CARRIER, Aviva Pfeiffer Primary Care Unav ailable Allergies Allergy Classification Reported Allergen(s) Allergy Type Date of Onset Reaction(s) Facility (20 sources) Codeine; Translations: [codeine] Drug Allergy 5 GI [facility] (20 sources) FLUoxetine; Translations: [fluoxetine] Drug Allergy 2 causes manic state [facility] (20 sources) Naproxen; Translations: [naproxen] Drug Allergy 5 nose bleed [facility] (12 sources) FLUoxetine; Translations: [FLUOXETINE HCL] Drug Allergy 6 Intolerance [facility] Work Phone: (1 source) Codeine Drug Allergy 5 [facility] (1 source) FLUoxetine Drug Allergy 5 [facility] (1 source) Naproxen Drug Allergy 5 [facility] Medications Current Medications Medication Drug Class(es) Dates Sig (Normalized) Sig (Original) acetaminophen 325 mg oral capsule (20 sources) Start: 12-04-2020 take 2 capsules by mouth once Acetaminophen (Tylenol) 325 mg capsule Active 650 MG PO ONCE December 04, 2020 12:00am Start: 12-04-2020 take 1 capsule by mouth once A cetaminophen (Tylenol) 325 mg capsule Active 325 MG PO ONCE December 04, 2020 1:14pm acetaminophen (T YLENOL ARTHRITIS ORAL) Take by mouth. Active acetaminophen (T YLENOL ARTHRITIS ORAL) Take by mouth. 0 Active Comment on above: Take by mouth. amitriptyline hydrochloride 25 mg oral tablet (8 sources) Tricyclic Antidepressant Start: 12-07-19 take 1 tablet by mouth once daily at bedtime amitriptyline (ELAVIL) 25 mg tablet Take 25 mg by mouth daily at bedtime. 12/06/2022 Active Comment on above: Take 25 mg by mouth daily at bedtime. amoxicillin 875 mg / clavulanate 125 mg oral tablet (20 sources) Penicillin-class Antibacterial Start: 04-22-19 Start: 07-23-2021 End: 07-24-2021 Start: 07-23-2021 End: 07-24-2021 take 1 tablet by mouth twice daily Amoxicillin-Pot Clavulanate Discontinued 1 TABLET PO TWICE A DAY July 22, 2021 11:00pm July 24, 2021 1:49pm Start: 04-17-2021 End: 04-21-2021 Start: 04-17-2021 End: 04-21-2021 take 1 tablet by mouth twice daily Amoxicillin-Pot Clavulanate (Augmentin) 875-125 mg tablet Discontinued 1 TABLET PO TWICE A DAY April 17, 2021 12:00am April 21, 2021 3:06pm Start: 12-16-2020 End: 12-26-2020 Start: 12-16-2020 End: 12-26-2020 take 1 tablet by mouth every twelve hours Amoxicillin-Pot Clavulanate (Augmentin) 875-125 mg tablet Discontinued 1 TABLET PO Q12H 28 01December 15, 2020 11:00pm December 25, 2020 11:01pm Start: 04-02-2020 End: 04-02-2020 Start: 04-02-2020 End: 04-02-2020 take 1 tablet by mouth every twelve hours Amoxicillin-Pot Clavulanate Discontinued 1 TABLET PO Q12H April 02, 2020 12:00am April 02, 2020 5:37pm calcitriol 0.0005 mg oral capsule (20 sources) Vitamin D3 Analog Start: 02-17-2023 calcitriol 0 .5 mcg oral capsule Dose : 1.5 mcg = 3 cap(s), Oral, qDay, # 30 cap(s), 0 Refill(s) Start Date: 02/17/23 Status: Ordered Start: 02-06-2022 Start: 02-06-2022 take 1.5 ug by mouth at bedtim e Calcitriol Active 1.5 MCG PO AT BEDTIME February 05, 2022 11:00pm Start: 09-25-2020 End: 06-14-2021 Start: 09-25-2020 End: 06-14-2021 take 1.5 ug by mouth at dinner Calcitriol Discontinued 1.5 MCG PO WITH DINNER 90 June 08, 2021 10:24am June 14, 2021 5:13pm Start: 05-31-2019 End: 03-18-2020 take 0.5 ug by mouth once daily Calcitriol Discontinue d 0.5 MCG PO DAILY May 31, 2019 1:46pm March 18, 2020 4:19pm Start: 04-27-2019 End: 05-31-2019 take 0.5 ug by mouth twice daily Calcitriol Discontinu ed 0.5 MCG PO TWICE A DAY April 27, 2019 6:43pm May 31, 2019 1:46pm Start: 04-09-2019 End: 04-27-2019 take 0.5 ug by mouth three times daily Calcitriol Discontinued 0.5 MCG PO THREE TIMES A DAY 270 April 09, 2019 3:06pm April 27, 2019 6:43pm Start: 03-19-2019 End: 04-09-2019 Calcitriol Discontinued 0.5 MCG PO TWICE A DAY 180 March 29, 2019 7:34am April 09, 2019 3:10pm BID on even days, TID on odd days Start: 01-26-2019 End: 02-07-2023 take 2 capsules by mouth once daily calcitriol (ROCALTROL) 0.5 mcg capsule Take 2 capsules by mouth once daily. 60 capsule 2 01/26/2019 02/07/2023 Discontinued Start: 12-23-2018 End: 03-19-2019 take 0.5 ug by mouth once daily Calcitriol Discontinue d 0.5 MCG PO DAILY 14 December 22, 2018 11:00pm March 19, 2019 8:59am Start: 12-23-2018 End: 09-25-2020 End: 02-07-2023 calcitriol (ROCALTROL) 0.25 mcg capsule Take by mouth. 0 02/07/2023 Discontinued Comment on above: Take 2 capsules by m outh once daily. Take by mouth. cholecalciferol 1.25 mg oral capsule (20 sources) Vitamin D Start: 06-03-2023 End: 11-30-2023 cholecalciferol 1250 mcg (50,000 intl units) oral capsule Dose : 50,000 International_Unit = 1 cap(s), Oral, qmonth, # 4 cap(s), 1 Refill(s), Pharmacy: [id number], Vitamin D deficiency, 181.9, cm, 06/03/23 8:16:00 EST, Height, kg, 06/03/23 8:16:00 EST, Dosing Weight Start Date: 06/03/23 Stop Date: 11/30/23 Status: Ordered Start: 03-21-2023 End: 09-17-2023 cholecalciferol 1250 mcg (50 ,000 intl units) oral capsule Dose : 50,000 International_Unit = 1 cap(s), Oral, qWeek, # 13 cap(s), 1 Refill(s), Pharmacy: [id number], Vitamin D deficiency, 175, cm, 03/21/23 10:52:00 EST, Height, kg, 03/21/23 10:52:00 EST, Dosing Weight Start Date: 03/21/23 Stop Date: 09/17/23 Status: Ordered Start: 12-07-2021 take 1 capsule by mo [facility] every week Cholecalciferol (Vitamin D3) (Vitamin D3) 25 mcg (1,000 unit) Capsule Active 25 MCG PO EVERY WEEK December 07, 2021 12:00am Start: 04-14-2021 take 50 ug by mouth once daily Cholecalciferol (Vitamin D3) Active 50 MCG PO DAILY April 14, 2021 10:16am Start: 04-09-2019 End: 02-07-2023 take 54245 [IU] by mouth two times weekly Cholecalciferol (Vitamin D3) Discontinued 96831 UNIT PO TWICE A WEEK April 09, 2019 3:06pm April 02, 2020 8:04pm Start: 03-19-2019 End: 05-12-2020 Comment on above: Take 50,000 Units by mouth two times a week. clindamycin 150 mg oral capsule (1 source) Lincosamide Antibacterial Start: 11-30-19 clindamycin 150 mg oral capsule Dose : 150 mg = 1 cap(s), Oral, q6h Start Date: 11/29/16 Status: Ordered cyanocobalamin/cobama mide (B12 SUBLINGUAL) (3 sources) take 1000 mg under the tongue once daily cyanocobalamin/tiffanie mamide (B12 SUBLINGUAL) Dissolve 1,000 mg under the tongue once daily. Active dicyclomine hydrochloride 20 mg oral tablet (20 sources) Anticholinergic Start: 06-03-19 End: 08-02-19 dicyclomine 20 mg oral tablet Dose : 20 mg = 1 tab(s), Oral, QID, PRN abdominal discomfort, # 120 tab(s), 1 Refill(s), Pharmacy: [id number], IBS (irritable bowel syndrome), 181.9, cm, 06/03/23 8:16:00 EST, Height, kg, 06/03/23 8:16:00 EST, Dosing Weight Start Date: 06/03/23 Stop Date: 08/02/23 Status: Ordered Start: 03-04-2023 End: 05-03-2023 dicyclomine 20 mg oral table t Dose : 20 mg = 1 tab(s), Oral, QID, PRN abdominal discomfort, # 120 tab(s), 1 Refill(s), Pharmacy: [id number], 175, cm, 03/04/23 8:55:00 EST, Height, kg, 03/04/23 8:55:00 EST, Dosing Weight Start Date: 03/04/23 Stop Date: 05/03/23 Status: Ordered Start: 04-22-2022 Start: 11-24-2021 Dicyclomine Ac tive 20 MG PO NEEDED November 24, 2021 12:00am Start: 10-29-2021 End: 11-05-2021 take 1 tablet by mouth four times daily Bentyl use dicyclomine Dose : 20 mg =, Oral, QID, # 20 tab(s), 0 Refill(s) Start Date: 10/29/21 Stop Date: 11/05/21 Status: Ordered Start: 06-05-2021 End: 06-16-2021 take 20 mg by mouth every eight hours as needed dicyclomine HCl (BENTYL ORAL) Take 20 mg by mouth three times a day as needed (diarrhea). Active Comment on above: Take 20 mg by mouth three times daily. DULoxetine 20 mg delayed release oral capsule (3 sources) Serotonin and Norepinephrine Reuptake Inhibitor Start: take 1 capsule by mouth once daily at bedtime DULoxetine (CYMBALTA) 20 mg capsule Take 20 mg by mouth daily at bedtime. 05/01/2024 Active fluticasone propionate 0.05 mg/actuat metered dose nasal spray (20 sources) Corticosteroid Start: Start: 03-23-2021 End: 04-17-2021 Start: 03-23-2021 End: 04-17-2021 take 1 spray(s) nasal route twice daily Fluticasone Propionate (Flonase Allergy Relief) 50 mcg/actuation spray,suspension Discontinued 1 SPRAY INTRANASAL TWICE A DAY March 23, 2021 12:00am April 17, 2021 8:21am administer into each nostril hydrocortisone 10 mg/ml topical cream (18 sources) Corticosteroid Start: 06-05-2021 Hydrocortisone (Preparation H Hydrocortisone) 1 % cream Active 1 APPLIC TOPICAL THREE TIMES A DAY June 05, 2021 1:00am hyoscyamine sulfate 0.125 mg sublingual tablet (20 sources) Start: 04-28-2022 Start: 10-20-2021 End: 11-19-2021 ketoconazole 20 mg/ml topical cream (15 sources) Azole Antifungal Start: 05-12-2023 End: 06-09-2023 ketoconazole 2% topical cream Apply 1 sherwin, Topical, BID, X 14 day(s), # 15 gram(s), 1 Refill(s), Pharmacy: [id number], Cream, 175, cm, 05/12/23 11:03:00 EST, Height, 82.7, kg, 05/12/23 11:03:00 EST, Dosing Weight Start Date: 05/12/23 Stop Date: 06/09/23 Status: Ordered Start: 07-30-2021 Ketoconazole A ctive 1 APPLIC TOPICAL TWICE A WEEK July 30, 2021 2:02pm Start: 03-18-2020 ketoconazole ( NIZORAL) 2 % shampoo USE DIRECTED TWICE WEEKLY 03/18/2020 Active Comment on above: USE DIRECTED TWIC E WEEKLY levocetirizine dihydrochloride 5 mg oral tablet (1 source) Histamine-1 Receptor Antagonist Start: 04-22-2022 levothyroxine sodium 0.15 mg oral tablet (20 sources) l-Thyroxine Start: 06-03-2023 levothyroxine 150 mcg (0.15 mg) oral tablet Dose : 150 mcg = 1 tab(s), Oral, qDay, # 90 tab(s), 1 Refill(s), Pharmacy: [id number], Hypothyroidism in adult, 181.9, cm, 06/03/23 8:16:00 EST, Height, kg, 06/03/23 8:16:00 EST, Dosing Weight Start Date: 06/03/23 Status: Ordered Start: 03-04-2023 levothyroxine 150 mcg (0.15 mg) oral tablet Dose : 150 mcg = 1 tab(s), Oral, qDay, # 90 tab(s), 1 Refill(s), Pharmacy: [id number], Hypothyroidism in adult, 175, cm, 03/04/23 8:55:00 EST, Height, kg, 03/04/23 8:55:00 EST, Dosing Weight Start Date: 03/04/23 Status: Ordered Start: 02-17-2023 levothyroxine 175 mcg (0.175 mg) oral tablet Dose : 175 mcg = 1 tab(s), Oral, qDay, # 30 tab(s), 0 Refill(s) Start Date: 02/17/23 Status: Ordered Start: 04-17-2022 Start: 04-17-2022 Levothyroxine Active 187.5 MCG PO MOTUWETHFRSA April 17, 2022 12:00am Start: 03-18-2020 End: 02-06-2022 Start: 01-17-2019 End: 03-18-2020 take 1 tablet by mouth once daily levothyroxine (LEVOXYL) 100 mcg tablet Take 1 tablet by mouth once daily. 30 tablet 01/31/2019 Active Start: 12-19-2018 End: 01-17-2019 Start: 12-19-2018 End: 01-15-2019 take 150 ug by mouth once daily Levothyroxine Discontinued 150 MCG PO DAILY December 18, 2018 11:00pm January 15, 2019 12:28pm Comment on above: Take 1 tablet by mabel th once daily. magnesium citrate 58.2 mg/ml oral solution (5 sources) Start: 10-29-2021 take 1 mL by mouth once Magnesium Citrate Active 300 ML PO ONCE 296 October 29, 2021 12:00am as a single dose meclizine hydrochloride 25 mg oral tablet (8 sources) Antiemetic Start: 02-13-2021 take 25 mg by mouth twice daily Meclizine Active 25 MG PO TWICE A DAY February 13, 2021 8:23am Start: 12-25-2018 End: 02-07-2023 take 1 tablet by mouth every eight hours as needed meclizine (MOTION SICKNESS, MECLIZINE,) 25 mg tab Take 1 tablet by mouth three times daily as needed. 20 tablet 0 12/25/2018 02/07/2023 Discontinued Comment on above: Take 1 tablet by mabel th three times daily as needed. nystatin 100 unt/mg topical powder (2 sources) Polyene Antifungal Start: 4 End: 4 nystatin 100,000 units/g topical powder Apply 1 sherwin, Topical, BID, X 10 day(s), # 30 gram(s), 2 Refill(s), Pharmacy: [id number], Powder, 181.9, cm, 06/03/23 8:16:00 EST, Height, 82.7, kg, 06/03/23 8:16:00 EST, Dosing Weight Start Date: 06/03/23 Stop Date: 07/03/23 Status: Ordered ondansetron 4 mg disintegrating oral tablet (20 sources) Serotonin-3 Receptor Antagonist Start: 2 take 8 mg by mouth every eight hours as needed Ondansetron Hcl Active 8 MG PO EVERY 8 HOURS NEEDED 28 10July 01, 2021 12:24pm Start: 06-29-2021 End: 11-02-2021 take 4 mg by mouth every six hours Ondansetron Active 4 MG PO EVERY 6 HOURS June 29, 2021 12:00am Start: 04-22-2021 End: 06-16-2021 Start: 01-23-2021 take 1 tablet by mabel every eight hours as needed for nausea and nausea ondansetron (ZOFRAN) 4 mg tablet Indications: Nausea Take 1 tablet by mouth every 8 hours as needed for nausea/vomiting. 4 tablet 01/23/2021 Active Start: 10-06-2018 ondansetron or ally disintegrating (ZOFRAN ODT) 4 mg disintegrating tablet EVERY 8 HOURS NEEDED PRN For Nausea 10/06/2018 Active Start: 02-02-2013 End: 05-13-2013 Start: 02-02-2013 End: 05-13-2013 take 4 mg by mouth every eight hours as needed Ondansetron Discontinued 4 MG PO EVERY 8 HOURS NEEDED February 01, 2013 11:00pm May 13, 2013 6:13pm Comment on above: EVERY 8 HOURS NEE DED PRN For Nausea Take 1 tablet by mabel every 8 hours as needed for nausea/vomiting. pantoprazole 20 mg delayed release oral tablet (20 sources) Proton Pump Inhibitor Start: 06-03-2023 Protonix 20 mg oral enteric coated tablet Dose : 20 mg = 1 tab(s), Oral, qDay, # 90 tab(s), 1 Refill(s), Pharmacy: [id number], GERD (gastroesophageal reflux disease), 181.9, cm, 06/03/23 8:16:00 EST, Height, kg, 06/03/23 8:16:00 EST, Dosing Weight Start Date: 06/03/23 Status: Ordered Start: 05-12-2023 Protonix 20 mg oral enteric coated tablet Dose : 20 mg = 1 tab(s), Oral, qDay, # 90 tab(s), 1 Refill(s), Pharmacy: [id number], GERD (gastroesophageal reflux disease), 175, cm, 05/12/23 11:03:00 EST, Height, kg, 05/12/23 11:03:00 EST, Dosing Weight Start Date: 05/12/23 Status: Ordered Start: 04-27-2022 Start: 04-23-2021 End: 06-16-2021 take 40 mg by mouth once daily Pantoprazole Discontinued 40 MG PO DAILY April 23, 2021 12:00am April 28, 2021 11:30am Start: 04-13-2021 End: 06-16-2021 take 1 tablet by mouth twice daily pantoprazole DR (PROTONIX) 40 mg tablet Take 1 tablet by mouth twice daily. 120 tablet 04/13/2021 Active Comment on above: Take 1 tablet by mabel twice daily. phenazopyridine hydrochloride 200 mg oral tablet (4 sources) Start: 022 take 1 tablet by mouth three times daily as needed Phenazopyridine (Pyridium) 200 MG tablet Active 200 MG PO 3 TIMES DAILY NEEDED 07 11July 01, 2021 12:25pm polyethylene glycol 3350 23363 mg powder for oral solution (11 sources) Osmotic Laxative Start: 019 polyethylene glycol 3350 (MIRALAX) 17 gram/dose powder Indications: Encounter for screening for malignant neoplasm of colon Mix in 2 quarts of water or desired liquid, start drinking after 5:00. 235 g 11/13/2018 Active Comment on above: Mix in 2 quarts of w ater or desired liquid, start drinking after 5:00. promethazine hydrochloride 12.5 mg oral tablet (2 sources) Phenothiazine Start: 022 take 12.5 mg by mouth three times daily Promethazine Active 12.5 MG PO THREE TIMES A DAY January 07, 2022 12:00am sennosides (LAXATIVE ORAL) (11 sources) sennosides (LAXA TIVE ORAL) Take by mouth. Active sennosides (LAXA TIVE ORAL) Take by mouth. 0 Active Comment on above: Take by mouth. sulfamethoxazole 800 mg / trimethoprim 160 mg oral tablet (20 sources) Dihydrofolate Reductase Inhibitor Antibacterial, Sulfonamide Antimicrobial Start: 2 take 1 tablet by mouth every twelve hours Sulfamethoxazo le-Trimethopri m (Bactrim Ds) 800-160 mg tablet Active 1 TABLET PO Q12H July 24, 2021 2:40pm Start: 12-16-2019 End: 04-02-2020 Start: 12-16-2019 End: 04-02-2020 take 1 tablet by mouth twice daily Sulfamethoxazole-Trimethoprim Discontinued 1 TABLET PO TWICE A DAY December 15, 2019 11:00pm April 02, 2020 5:09pm tiZANidine 4 mg oral tablet (20 sources) Central alpha-2 Adrenergic Agonist Start: 03-13-2019 End: 11-13-2023 tiZANidine 4 mg oral tablet Dose : 4 mg = 1 tab(s), Oral, TID, PRN back pain, # 90 tab(s), 4 Refill(s), Pharmacy: [facility] #[id number], 181.9, cm, 06/03/23 8:16:00 EST, Height, kg, 06/03/23 8:16:00 EST, Dosing Weight Start Date: 06/16/23 Stop Date: 11/13/23 Status: Ordered Start: 03-13-2019 tiZANidine (ZA NAFLEX) 4 mg tablet tiZANidine Tizanidine Hcl Active 4 MG THREE TIMES A DAY March 13, 2019 3:48pm 03-13-2019 [facility] ([id number]) 03/13/2019 Active Start: 03-13-2019 End: 04-13-2022 tiZANidine 4 mg oral tablet Dose : 4 mg = 1 tab(s), Oral, q8h, # 90 tab(s), 0 Refill(s) Start Date: 02/17/23 Status: Ordered Comment on above: tiZANidine Tizanidin e Hcl Active 4 MG THREE TIMES A DAY 90 March 13, 2019 3:48pm 03-13-2019 [facility] ([id number]) traMADol hydrochloride 50 mg oral tablet (2 sources) Opioid Agonist Start: 05-10-2023 traMADol 50 mg oral tablet 0 Refill(s), 83.9 Start Date: 05/10/23 Status: Ordered Start: 11-29-2016 Ultram 50 mg o ral tablet Dose : 50 mg = 1 tab(s), Oral, q4h, PRN as needed for pain, # 24 tab(s), 0 Refill(s) Start Date: 11/29/16 Status: Ordered Vitamin B12 250 mcg oral tab let (5 sources) Start: 03-04-2023 End: 08-31-2023 Vitamin B12 250 mcg oral tab let Dose : 500 mcg = 2 tab(s), Oral, qDay, # 180 tab(s), 1 Refill(s), Pharmacy: [facility] #[id number], B12 deficiency anemia, 175, cm, 03/04/23 8:55:00 EST, Height, kg, 03/04/23 8:55:00 EST, Dosing Weight Start Date: 03/04/23 Stop Date: 08/31/23 Status: Ordered Start: 02-17-2023 take 1 ug by mouth once daily Vitamin B12 250 mcg oral tablet mcg = tab(s), Oral, qDay, 0 Refill(s) Start Date: 02/17/23 Status: Ordered Vitamin D3 125 mcg (5000 int l units) oral capsule (1 source) Start: 02-17-2023 Vitamin D3 125 mcg (5000 intl units) oral capsule Dose : 125 mcg = 1 cap(s), Oral, qDay, 0 Refill(s) Start Date: 02/17/23 Status: Ordered Completed/Discontinued Medications Medication Drug Class(es) Dates Sig (Normalized) Sig (Original) acetaminophen 325 mg / HYDROcodone bitartrate 5 mg oral tablet (20 sources) Opioid Agonist Start: 01-07-2022 End: 01-11-2022 Start: 01-07-2022 End: 01-11-2022 take 1 tablet by mouth every eight hours Hydrocodone-Acetaminophen Discontinued 1 TABLET PO Q8H 12 January 07, 2022 January 10, 2022 11:03pm Start: 06-29-2021 take 1 tablet by mabel th every six hours Hydrocodone-Acetaminophen Active 1 TABLE T PO EVERY 6 HOURS 6 2 June 29, 2021 8:17am Start: 04-29-2021 End: 05-05-2021 Start: 04-29-2021 End: 05-05-2021 take 1 tablet by mouth every six hours Hydrocodone-Acetaminophen Discontinued 1 - 2 TABLET PO EVERY 6 HOURS 14 April 29, 2021 May 05, 2021 9:25am Start: 01-21-2021 End: 02-02-2021 Start: 01-21-2021 End: 02-02-2021 take 1 tablet by mouth every eight hours Hydrocodone-Acetaminophen Discontinued 1 TABLET PO Q8H 9 January 21, 2021 February 02, 2021 1:29pm Start: 12-23-2018 End: 12-30-2018 Start: 12-19-2018 End: 12-30-2018 take 1 tablet by mouth every eight hours as needed Hydrocodone-Acetaminophen Discontinued 1 TABLET PO EVERY 8 HOURS NEEDED 23 08December 23, 2018 December 29, 2018 11:09pm acetaminophen 325 mg / oxyCO DONE hydrochloride 5 mg oral tablet (20 sources) Opioid Agonist Start: 02-06-2022 End: 03-08-2022 Start: 02-06-2022 End: 03-08-2022 take 1 tablet by mouth every six hours Oxycodone-Acetaminophen Discontinued 1 TABLET PO EVERY 6 HOURS 10 February 06, 2022 March 08, 2022 12:50pm Start: 12-09-2021 take 1 tablet by mabel th every six hours Oxycodone-Acetaminophen (Percocet) 5-325 mg tablet Active 1 TABLET PO EVERY 6 HOURS 12 December 09, 2021 On Hold: Order Changed Start: 07-01-2021 take 2 tablets by mo uth every eight hours as needed Oxycodone-Acetaminophen Active 2 TABLET PO EVERY 8 HOURS NEEDED 28 10July 01, 2021 12:24pm Start: 12-02-2020 End: 12-04-2020 Start: 12-02-2020 End: 12-04-2020 take 1 tablet by mouth every six hours as needed Oxycodone-Acetaminophen Discontinued 1 TABLET PO EVERY 6 HOURS NEEDED 12 3 December 02, 2020 December 04, 2020 2:34pm 200 actuat albuterol 0.09 mg/actuat dry powder inhaler (4 sources) beta2-Adrenergic Agonist Start: 12-08-2018 End: 02-07-2023 albuterol sulfate 90 mcg/actuation aepb EVERY 4 HOURS NEEDED PRN For Wheezing 0 12/08/2018 02/07/2023 Discontinued Comment on above: EVERY 4 HOURS NEE DED PRN For Wheezing azithromycin 250 mg oral tablet (20 sources) Macrolide Antimicrobial Start: 08-29-2018 End: 09-18-2018 Start: 08-29-2018 End: 09-18-2018 Azithromycin Discontinued 0 PO .COMPLEX 6 August 28, 2018 11:00pm September 18, 2018 8:38am Take two tablets by mouth on day one then one tablet by mouth on days 2-5 benzonatate 200 mg oral capsule (20 sources) Non-narcotic Antitussive Start: 03-23-2021 End: 04-21-2021 bifidobacterium animalis [id number] unt / bifidobacterium longum [id number] unt / lactobacillus acidophilus [id number] unt oral capsule (4 sources) Start: 11-01-2018 End: 02-07-2023 take 1 capsule by mouth once daily L.acidoph-B.lacti s-B.longum (FLORAJEN3) 460 mg (7.5-6- 1.5 bill. cell) cap Take 1 capsule by mouth once daily. 30 capsule 2 11/01/2018 02/07/2023 Discontinued Comment on above: Take 1 capsule by [facility] once daily. bisacodyl 5 mg delayed release oral tablet (20 sources) Stimulant Laxative Start: 08-06-2020 End: 02-02-2021 Start: 11-13-2018 End: 02-07-2023 bisacodyl EC (DULCOLAX, BISA CODYL,) 5 mg EC tablet Indications: Encounter for screening for malignant neoplasm of colon Take two (2) tablets at 4:00 and 8:00 today, for colonoscopy prep. 4 tablet 0 11/13/2018 02/07/2023 Discontinued Comment on above: Take two (2) tablets at 4:00 and 8:00 today, for colonoscopy prep. Blood-Glucose Meter (FREESTYLE LITE METER) monitoring kit (4 sources) Start: 02-06-2013 End: 02-07-2023 Blood-Glucose Meter (FREESTYLE LITE METER) monitoring kit Freestyle LITE Meter Kit - 1 Each 0 02/06/2013 02/07/2023 Discontinued Start: 02-06-2013 Blood-Glucose Meter (FREESTYLE LITE METER) monitoring kit Freestyle LITE Meter Kit - 1 Each 0 02/06/2013 Active Comment on above: Freestyle LITE Meter Kit - busPIRone hydrochloride 5 mg oral tablet (20 sources) Start: 08-07-2020 End: 08-19-2020 calcium carbonate 1250 mg or al tablet (20 sources) Start: 01-15-2019 End: 01-29-2019 Start: 12-23-2018 End: 02-07-2023 take 1 tablet by mouth twice daily after mealtime ANTACID, CALCIUM CARBONATE, 200 mg calcium (500 mg) chew CHEW AND SWALLOW 1 (ONE) TABLET BY MOUTH TWICE DAILY after meals 0 12/23/2018 02/07/2023 Discontinued Comment on above: CHEW AND SWALLOW 1 ( ONE) TABLET BY MOUTH TWICE DAILY after meals cephalexin 500 mg oral bonilla giron (20 sources) Cephalosporin Antibacterial Start: 12-10-2021 End: 01-22-2022 Start: 07-01-2021 End: 07-23-2021 Start: 07-01-2021 End: 07-23-2021 take 500 mg by mouth three times daily Cephalexin Discontinued 500 MG PO THREE TIMES A DAY 15 June 30, 2021 11:00pm July 23, 2021 9:35am Start: 12-16-2019 End: 04-02-2020 Start: 12-16-2019 End: 04-02-2020 take 500 mg by mouth every six hours Cephalexin Discontinued 500 MG PO EVERY 6 HOURS 40 December 15, 2019 11:00pm April 02, 2020 5:08pm Start: 08-13-2019 End: 08-23-2019 Cholestyramine Resin (20 sources) Bile Acid Sequestrant Start: 06-05-2021 End: 06-16-2021 take 1 dose by mouth once daily Cholestyramine (With Sugar) Discontinued 4 GM PO DAILY 368.76 June 05, 2021 10:59am June 16, 2021 10:06am administer w/meal; avoid other meds within 1hr before or 4-6hr after dose Start: 06-05-2021 End: 06-16-2021 take 1 dose by mouth once daily Cholestyramine (With Sugar) Discontinued 4 GM PO DAILY 368.76 June 05, 2021 12:00am June 16, 2021 9:06am administer w/meal; avoid other meds within 1hr before or 4-6hr after dose Start: 06-05-2021 End: 06-16-2021 take 1 dose by mouth once daily Cholestyramine (With Sugar) Discontinued 4 GM PO DAILY 368.76 June 05, 2021 1:00am June 16, 2021 10:06am administer w/meal; avoid other meds within 1hr before or 4-6hr after dose cyclobenzaprine hydrochlorid e 10 mg oral tablet (20 sources) Muscle Relaxant Start: 01-29-2019 End: 03-13-2019 Start: 08-09-2017 End: 09-18-2018 Start: 11-12-2016 Flexeril Oral, TID Start Date: 11/12/16 Status: Ordered Start: 11-17-2013 End: 01-15-2014 diazePAM 5 mg oral tablet (20 sources) Benzodiazepine Start: 12-02-2020 End: 12-04-2020 diphenhydrAMINE hydrochloride 25 mg oral capsule (20 sources) Histamine-1 Receptor Antagonist Start: 02-03-2013 End: 05-13-2013 Docusate (4 sources) End: 02-07-2023 docusate sodium (STOOL SOFTENER ORAL) Take 10 mg by mouth. 0 02/07/2023 Discontinued docusate sodium (STOOL SOFTENER ORAL) Take 10 mg by mouth. 0 Active Comment on above: Take 10 mg by mouth. doxycycline hyclate 100 mg oral tablet (20 sources) Tetracycline-class Drug Start: 06-16-2020 End: 06-27-2020 Ethinyl Estradiol / Levonorgestrel (20 sources) Progestin, Estrogen, Progestin-containing Intrauterine Device Start: 01-10-2014 End: 01-15-2014 Cathy Discontinued 1 TABLET DAILY January 10, 2014 2:10pm January 15, 2014 7:30am Start: 01-10-2014 End: 01-15-2014 Levlen Discontinued 1 TABLET DAILY January 09, 2014 11:00pm January 15, 2014 6:30am Start: 01-10-2014 End: 01-15-2014 Levlen Discontinued 1 TABLET DAILY January 10, 2014 12:00am January 15, 2014 7:30am famotidine 20 mg oral tablet (20 sources) Histamine-2 Receptor Antagonist Start: 04-23-2021 End: 06-16-2021 gabapentin 100 mg oral capsule (1 source) Anti-epileptic Agent Start: 03-28-2023 End: 04-27-2023 gabapentin 100 mg oral capsule Dose : 100 mg = 1 cap(s), Oral, TID, # 90 cap(s), 0 Refill(s), Pharmacy: [facility] #[id number], Strain of lumbar spine, 175, cm, 03/25/23 9:14:00 EST, Height, 83.9, kg, 03/25/23 9:14:00 EST, Dosing Weight Start Date: 03/28/23 Stop Date: 04/27/23 Status: Ordered ibuprofen 200 mg oral tablet (20 sources) Nonsteroidal Anti-inflammatory Drug Start: 06-11-2020 End: 12-04-2020 Start: 12-08-2018 End: 04-02-2020 Start: 12-08-2018 End: 04-02-2020 take 400 mg by mouth once daily as needed Ibuprofen Discontinued 400 MG PO DAILY NEEDED December 07, 2018 11:00pm April 02, 2020 5:09pm Start: 11-29-2016 End: 02-07-2023 take 1 tablet by mouth every eight hours as needed for pain ibuprofen (MOTRIN) 800 mg tablet Indications: Strain of back, initial encounter , Chronic bilateral thoracic back pain , Chronic bilateral low back pain with right-sided sciatica Take 1 tablet by mouth every 8 hours as needed for Pain. 60 tablet 0 08/16/2017 02/07/2023 Discontinued Comment on above: Take 1 tablet by mabel every 8 hours as needed for Pain. linaclotide 0.145 mg oral capsule (9 sources) Guanylate Cyclase-C Agonist Start: 02-19-2022 End: 03-17-2022 LORazepam 0.5 mg oral tablet (20 sources) Benzodiazepine Start: 07-23-2021 End: 07-24-2021 Start: 08-07-2020 End: 12-04-2020 meloxicam 15 mg oral tablet (20 sources) Nonsteroidal Anti-inflammatory Drug Start: 04-02-2020 End: 02-07-2023 meloxicam (MOBIC) 15 mg tablet TAKE 1 TABLET BY MOUTH NEEDED FOR PAIN 0 04/02/2020 02/07/2023 Discontinued Comment on above: TAKE 1 TABLET BY MABEL NEEDED FOR PAIN omeprazole 40 mg delayed release oral capsule (8 sources) Proton Pump Inhibitor Start: 03-21-2023 End: 04-20-2023 omeprazole 40 mg oral delayed release capsule Dose : 40 mg = 1 cap(s), Oral, qDay, # 30 cap(s), 0 Refill(s), Pharmacy: [facility] #[id number], GERD (gastroesophageal reflux disease), 175, cm, 03/21/23 10:52:00 EST, Height, kg, 03/21/23 10:52:00 EST, Dosing Weight Start Date: 03/21/23 Stop Date: 04/20/23 Status: Ordered Start: 11-21-2018 End: 02-07-2023 take 1 capsule by mouth once daily omeprazole (PRILOSEC) 20 mg capsule Indications: Other gastritis without bleeding , RUQ pain Take 1 capsule by mouth once daily. 30 capsule 3 11/21/2018 02/07/2023 Discontinued Start: 11-29-2016 omeprazole 40 mg oral delayed release capsule Dose : 40 mg = 1 cap(s), Oral, qDay, # 90 cap(s), 1 Refill(s), Pharmacy: [facility] #[id number], GERD (gastroesophageal reflux disease), 175, cm, 02/17/23 13:26:00 EST, Height, kg, 02/17/23 13:26:00 EST, Dosing Weight Start Date: 02/17/23 Status: Ordered Comment on above: Take 1 capsule by mo [facility] once daily. oseltamivir 30 mg oral capsu le (20 sources) Neuraminidase Inhibitor Start: 05-09-2013 End: 05-13-2013 predniSONE 10 mg oral tablet (20 sources) Start: 02-03-2022 End: 03-17-2022 Start: 12-04-2020 End: 01-07-2021 Start: 08-21-2020 End: 08-26-2020 predniSONE 20 mg oral tablet Dose : 20 mg = 1 tab(s), Oral, Daily, # 5 tab(s), 0 Refill(s), Fluid in middle ear Start Date: 08/21/20 Stop Date: 08/26/20 Status: Ordered Start: 06-11-2020 End: 06-27-2020 Start: 01-29-2019 End: 02-08-2019 Comment on above: Take 4 tabs daily fo r 3 days, then 2 tabs daily for 3 days, then 1 tab daily for 3 days with food. terbinafine hydrochloride 10 mg/ml topical cream (20 sources) Allylamine Antifungal Start: 04-09-2020 End: 06-11-2020 Start: 04-09-2020 End: 06-11-2020 Terbinafine Hcl (Lamisil At) 1 % cream Discontinued 1 APPLIC TOPICAL TWICE A DAY April 09, 2020 12:00am June 11, 2020 10:43am Apply to affected areas twice daily for 10 to 14 days as discussed. Start: 06-07-2017 take 1 tablet by mabel once daily terbinafine HCl (LAMISIL) 250 mg tablet Take 250 mg by mouth once daily. 0 06/07/2017 Active Comment on above: Take 250 mg by mouth once daily. (2 sources) Start: 06-05-2021 End: 06-16-2021 Start: 01-10-2014 End: 01-15-2014 Problems Active Problems Problem Classification Problem Date Documented Da te Episodic/Chronic Abdominal hernia (1 source) Umbilical hernia 03-16-2024 Episodic Anxiety disorders (20 sources) Generalized anxiety disorder; Translations: [Generalized anxiety disorder] 08-07-2020 Chronic Appendicitis and other appendiceal conditions (20 sources) Disorder of appendix; Translations: [Disease of appendix, unspecified] Episodic Biliary tract disease (20 sources) Biliary colic; Translations: [Calculus of bile duct without cholangitis or cholecystitis without obstruction] 04-03-2020 Episodic Calculus of urinary tract (20 sources) Renal colic; Translations: [Unspecified renal colic] Episodic Cardiac dysrhythmias (20 sources) Palpitations; Translations: [Palpitations] Episodic Complication of device; implant or graft (20 sources) Disorder of dental prosthesis; Translations: [Pain due to other internal prosthetic devices, implants and grafts, initial encounter] 06-02-2016 Episodic Complications of surgical procedures or medical care (20 sources) Post-surgical hypoparathyroidism; Translations: [Postprocedural hypoparathyroidism] Chronic Conditions associated with dizziness or vertigo (20 sources) Vertigo; Translations: [Dizziness and giddiness] 06-16-2021 Episodic Diverticulosis and diverticulitis (20 sources) Diverticular disease; Translations: [Diverticulosis of intestine, part unspecified, without perforation or abscess without bleeding] Onset: 4 Chronic Esophageal disorders (6 sources) Gastroesophageal reflux disease 02-17-2023 Chronic Gastroduodenal ulcer (except hemorrhage) (3 sources) Gastric ulcer; Translations: [Chronic gastric ulcer without hemorrhage or perforation] Onset: 4 03-16-2024 Chronic Genitourinary symptoms and ill-defined conditions (4 sources) Urge incontinence of urine 05-10-2023 Chronic Genitourinary symptoms and ill-defined conditions (20 sources) Abnormal urinalysis; Translations: [Unspecified abnormal findings in urine] Episodic Immunizations and screening for infectious disease (20 sources) Suspected disease caused by 2019-nCoV; Translations: [Suspected COVID-19 virus infection] 04-22-2021 Episodic Inflammatory diseases of female pelvic organs (6 sources) Hydrosalpinx; Translations: [Chronic salpingitis] Onset: 4 03-22-2024 Chronic Mood disorders (11 sources) Recurrent major depressive episodes, moderate ; Translations: [Major depressive disorder, recurrent, moderate] Onset: 7 12-13-2006 Chronic Mycoses (20 sources) Tinea pedis; Translations: [Tinea pedis] 04-22-2021 Episodic Nausea and vomiting (20 sources) Vomiting; Translations: [Vomiting, unspecified] Episodic Nonmalignant breast conditions (11 sources) Mammary duct ectasia; Translations: [Mammary duct ectasia of unspecified breast] Onset: 5 01-15-2015 Chronic Nonspecific chest pain (20 sources) Chest pain; Translations: [Chest pain, unspecified] Episodic Nutritional deficiencies (6 sources) Vitamin D deficiency 02-17-2023 Chronic Other acquired deformities (1 source) Stenosis of intervertebral foramina 08-13-2024 Episodic Other circulatory disease (1 source) Feeling of lump in throat; Translations: [Other specified symptoms and signs involving the circulatory and respiratory systems] Episodic Other connective tissue disease (4 sources) Muscle pain; Translations: [Myalgia, unspecified site] 04-25-2022 Episodic Other connective tissue disease (2 sources) Baldwin's chair sign positive; Translations: [Other symptoms and signs involving the nervous system] 08-13-2024 Episodic Other connective tissue disease (1 source) Finding related to ability to perform hand functions; Translations: [Other symptoms and signs involving the musculoskeletal system] 08-13-2024 Episodic Other connective tissue disease (1 source) Other symptoms and signs involving the musculoskeletal system; Translations: [Impaired dexterity] Onset: 5 Episodic Other connective tissue disease (1 source) Other symptoms and signs involving the nervous system; Translations: [Lhermitte sign positive] Onset: 5 Episodic Other diseases of kidney and ureters (20 sources) Hydronephrosis; Translations: [Unspecified hydronephrosis] 07-07-2021 Episodic Other diseases of kidney and ureters (6 sources) Cyst of kidney 02-17-2023 Episodic Other disorders of stomach and duodenum (9 sources) Mass of duodenum; Translations: [Other diseases of stomach and duodenum] 02-11-2022 Episodic Other disorders of stomach and duodenum (18 sources) Intestinal metaplasia of gastric mucosa; Translations: [Intestinal metaplasia of stomach] Episodic Other disorders of stomach and duodenum (9 sources) Other diseases of stomach and duodenum; Translations: [Other specified disorders of stomach and duodenum] Episodic Other endocrine disorders (7 sources) Hypoglycemia 11-12-2016 Chronic Other female genital disorders (1 source) Unspecified condition associated with female genital organs and menstrual cycle; Translations: [Unspecified condition associated with female genital organs and menstrual cycle] Onset: 5 Episodic Other gastrointestinal disorders (6 sources) Irritable bowel syndrome 02-17-2023 Chronic Other gastrointestinal disorders (3 sources) Irritable bowel syndrome without diarrhea; Translations: [Irritable bowel syndrome, unspecified] Onset: 4 Chronic Other gastrointestinal disorders (20 sources) Rectal tenesmus; Translations: [Other specified symptoms and signs involving the digestive system and abdomen] 06-16-2021 Episodic Other gastrointestinal disorders (20 sources) Chronic constipation; Translations: [Other constipation] 02-02-2021 Episodic Other gastrointestinal disorders (20 sources) Diarrhea; Translations: [Diarrhea, unspecified] 10-01-2021 Episodic Other gastrointestinal disorders (20 sources) Abdominal bloating; Translations: [Abdominal distension (gaseous)] 06-16-2021 Episodic Other gastrointestinal disorders (4 sources) Diarrhea, unspecified; Translations: [Diarrhea] Episodic Other gastrointestinal disorders (1 source) Mass of uterine adnexa 03-16-2024 Episodic Other liver diseases (16 sources) Steatosis of liver; Translations: [Fatty (change of) liver, not elsewhere classified] 12-15-2021 Chronic Other liver diseases (12 sources) Fatty (change of) liver, not elsewhere classified; Translations: [Other chronic nonalcoholic liver disease] Onset: Chronic Other liver diseases (16 sources) Large liver; Translations: [Hepatomegaly, not elsewhere classified] 12-15-2021 Episodic Other liver diseases (13 sources) Hepatomegaly, not elsewhere classified; Translations: [Hepatomegaly] Episodic Other lower respiratory disease (1 source) Rib pain; Translations: [Pleurodynia] 05-24-2024 Episodic Other nervous system disorders (20 sources) Chronic pain; Translations: [Other chronic pain] 10-01-2021 Chronic Other nervous system disorders (1 source) Thoracic outlet syndrome 10-11-2023 Chronic Other nervous system disorders (1 source) Disease of spinal cord, unspecified; Translations: [Disease of spinal cord, unspecified] Onset: 5 Chronic Other nervous system disorders (6 sources) Paresthesia of right upper limb 02-17-2023 Episodic Other nervous system disorders (1 source) Paresthesia of foot 04-30-2024 Episodic Other nervous system disorders (2 sources) Xie's reflex positive; Translations: [Abnormal reflex] 08-13-2024 Episodic Other nervous system disorders (1 source) Abnormal reflex; Translations: [Xie reflex positive] Onset: 5 Episodic Other nutritional; endocrine; and metabolic disorders (20 sources) Hypocalcemia; Translations: [Hypocalcemia] 05-08-2021 Chronic Other nutritional; endocrine; and metabolic disorders (20 sources) Unintentional weight loss; Translations: [Abnormal weight loss] 06-16-2021 Episodic Other screening for suspected conditions (not mental disorders or infectious disease) (4 sources) Imaging of thorax abnormal 05-12-2023 Chronic Other screening for suspected conditions (not mental disorders or infectious disease) (20 sources) Abnormal finding on evaluation procedure; Translations: [Other abnormal tumor markers] Onset: 4 Episodic Other skin disorders (20 sources) Hidradenitis suppurativa; Translations: [Hidradenitis suppurativa] 07-23-2021 Episodic Other skin disorders (8 sources) Hidradenitis suppurativa; Translations: [Hidradenitis] Episodic Other skin disorders (1 source) Eruption; Translations: [Rash and other nonspecific skin eruption] Episodic Other skin disorders (1 source) Ingrowing great toenail 04-30-2024 Episodic Other skin disorders (1 source) Onycholysis 04-30-2024 Episodic Other upper respiratory infections (20 sources) Upper respiratory infection; Translations: [Acute upper respiratory infection, unspecified] 04-22-2021 Episodic Otitis media and related conditions (20 sources) Otitis media; Translations: [Otitis media, unspecified, left ear] 04-22-2021 Episodic Ovarian cyst (20 sources) Cyst of ovary; Translations: [Unspecified ovarian cyst, unspecified side] Onset: 4 Episodic Pancreatic disorders (not diabetes) (20 sources) Chronic pancreatitis; Translations: [Other chronic pancreatitis] Onset: 4 10-20-2021 Chronic Residual codes; unclassified (20 sources) Tobacco use and exposure - finding; Translations: [Tobacco use] 02-12-2019 Episodic Residual codes; unclassified (20 sources) Acquired absence of other specified parts of digestive tract; Translations: [Other acquired absence of organ] Episodic Residual codes; unclassified (7 sources) Chronic back pain 11-12-2016 Episodic Comment on above: Chronic back pain se condary to DDD 02/18/2023 XR CERVIC AL SPINE: FINDINGS: The vertebral body heights, alignment and interspacing appear to be within normal limits. The dens and lateral masses appear unremarkable. Hypodensity of the base of the dens appears to be artifactual in nature (Mach line). The possibility of a previously healed dens injury is not excluded. Multilevel [id number] uncovertebral joint hypertrophy is seen worst at C5-C6 and C6-C7. There are no fractures or subluxations apparent. No prevertebral soft tissue swelling is seen. IMPRESSION: 1. [id number] multilevel uncovertebral joint hypertrophy seen worst at the C5-C7 levels. 2. Likely artifactual hypodensity of the base of the dens. Possible previously healed injury is not excluded. 11/26/2020 MRI Lumba r Spine IMPRESSION: 1. Radial annular tears at L2-3 and L3-4 without significant central or foraminal stenosis. 2. Progression of degenerative disc disease loss at L5-L1. Residual codes; unclassified (6 sources) FH: Myocardial infarction 02-17-2023 Episodic Residual codes; unclassified (6 sources) Increased body mass index 02-17-2023 Episodic Residual codes; unclassified (2 sources) Other specified postprocedural states; Translations: [Other specified postprocedural states] Onset: 5 Episodic Skin and subcutaneous tissue infections (20 sources) Cellulitis; Translations: [Cellulitis, unspecified] Episodic Spondylosis; intervertebral disc disorders; other back problems (20 sources) Annular tear of lumbar disc; Translations: [Other intervertebral disc degeneration, lumbar region] Onset: 6 07-07-2015 Chronic Spondylosis; intervertebral disc disorders; other back problems (20 sources) Backache; Translations: [Radiculopathy, site unspecified] Onset: 9 10-21-2008 Episodic Sprains and strains (5 sources) Low back strain 03-25-2023 Episodic Substance-related disorders (6 sources) Smoker 02-17-2023 Chronic Thyroid disorders (20 sources) Hypothyroidism; Translations: [Hypothyroidism, unspecified] Onset: 9 Chronic Unclassified (6 sources) History of total thyroidectomy 02-17-2023 Unclassified (11 sources) Patient encounter status 03-04-2023 Unclassified (1 source) Paresthesia of bilateral hands 10-11-2023 Unclassified (1 source) Finding related to ability to perform hand functions 08-13-2024 Unclassified (2 sources) Gastric intestinal metaplasia, unspecified; Translations: [Gastric intestinal metaplasia, unspecified] Onset: 4 Urinary tract infections (20 sources) Urinary tract infectious disease; Translations: [Urinary tract infection, site not specified] Episodic Past or Other Problems Problem Classification Problem Date Documented Da te Episodic/Chronic Abdominal pain (20 sources) Right lower quadrant pain; Translations: [Right lower quadrant pain] Onset: 10-28-2023 Episodic Cancer of cervix (11 sources) Cervical intraepithelial neoplasia; Translations: [Carcinoma in situ of cervix, unspecified] Onset: 11-30-2013 11-30-2013 Episodic Contraceptive and procreative management (6 sources) Intrauterine contraceptive device in situ; Translations: [Presence of (intrauterine) contraceptive device] Onset: 01-17-2012 Resolved: 06-26-2012 06-26-2012 Episodic Early or threatened labor (6 sources) False labor before 37 completed weeks of gestation, unspecified trimester; Translations: [Threatened premature labor, antepartum condition or complication] Onset: 08-17-2010 Resolved: 08-18-2011 08-18-2011 Episodic Hemorrhage during ; abruptio placenta; placenta previa (6 sources) Hemorrhage in early , unspecified; Translations: [Unspecified hemorrhage in early , antepartum condition or complication] Onset: 01-16-2013 Resolved: 04-10-2013 04-06-2021 Episodic Inflammatory diseases of female pelvic organs (6 sources) Vaginitis; Translations: [Acute vaginitis] Onset: 01-01-2013 Resolved: 04-10-2013 04-10-2013 Episodic Other complications of (6 sources) Supervision of other high risk pregnancies, unspecified trimester; Translations: [Supervision of other high-risk ] Onset: 04-21-2010 Resolved: 08-18-2011 08-18-2011 Episodic Other complications of (6 sources) History of delivery of macrosomal ; Translations: [Supervision of with other poor reproductive or obstetric history, unspecified trimester] Onset: 01-16-2013 Resolved: 09-06-2013 04-06-2021 Episodic Other complications of (6 sources) History of hemorrhage; Translations: [Supervision of with other poor reproductive or obstetric history, unspecified trimester] Onset: 01-16-2013 Resolved: 09-06-2013 04-06-2021 Episodic Other complications of (6 sources) Maternal tobacco use in ; Translations: [Smoking (tobacco) complicating , unspecified trimester] Onset: 01-16-2013 Resolved: 09-06-2013 04-06-2021 Episodic Other complications of (6 sources) H/O: premature delivery; Translations: [Supervision of other high risk pregnancies, unspecified trimester] Onset: 01-16-2013 Resolved: 09-06-2013 04-06-2021 Episodic Other female genital disorders (6 sources) History of premature labor; Translations: [Personal history of pre-term labor] Onset: 04-21-2010 Resolved: 08-18-2011 08-18-2011 Episodic Other female genital disorders (6 sources) Pruritus of vagina; Translations: [Other specified noninflammatory disorders of vagina] Onset: 01-01-2013 Resolved: 04-10-2013 04-10-2013 Episodic Other female genital disorders (6 sources) Vaginal discharge; Translations: [Other specified noninflammatory disorders of vagina] Onset: 01-01-2013 Resolved: 04-10-2013 04-10-2013 Episodic Other gastrointestinal disorders (5 sources) Other constipation; Translations: [Constipation, unspecified] Onset: 10-28-2023 Episodic Other gastrointestinal disorders (7 sources) Abdominal distension (gaseous); Translations: [Flatulence, eructation, and gas pain] Onset: 10-28-2023 Episodic Other gastrointestinal disorders (7 sources) Other specified symptoms and signs involving the digestive system and abdomen; Translations: [Other symptoms involving digestive system] Onset: 10-28-2023 Episodic Other gastrointestinal disorders (1 source) Dysphagia, unspecified; Translations: [Dysphagia, unspecified] Onset: 05-28-2024 Episodic Other nutritional; endocrine; and metabolic disorders (16 sources) Abnormal weight loss; Translations: [Loss of weight] Onset: 10-28-2023 Episodic Other and delivery including normal (6 sources) Normal ; Translations: [Encounter for supervision of other normal , unspecified trimester] Onset: 10-28-2005 Resolved: 06-16-2009 06-16-2009 Episodic Other skin disorders (6 sources) Sebaceous cyst of skin; Translations: [Sebaceous cyst] Onset: 11-08-2007 Resolved: 04-10-2013 04-10-2013 Episodic Viral infection (20 sources) Disease caused by 2019-nCoV; Translations: [COVID-19] Onset: 03-17-2021 04-22-2021 Episodic Results Test Name Value Interpretation Reference Range Facility Inital Evaluation (1) - PTon 10-02-2024 Inital Evaluation (1) - PT [facility] [address] [place] [address] / REHABILITATION SERVICES INITIAL EVALUATION MR#: [id number] Acct: [id number] Name: ISABEL VILLEDA Rep #: [id number] : 1985 39 From: Osmin Hernandez PT, Cert. T, OCS Referring Dr.: Dr. Eloy Lowe MD Status: REG RCR Insurance: [facility] SELF PAY INSURANCE Patient's Visit Information Visit Information Visit Information: ISABEL VILLEDA is a 39 year old F referred to Physical Therapy by Dr. Eloy Lowe MD with a diagnosis of SPECIFIED POSTDOCTORAL STATE( S/P CERVICAL DISC REPLACEMENT). Date of Evaluation: 10/01/24 Physical Therapist: Osmin Hernandez PT, Cert T, OCS Visit Plan Frequency: 2x /Week Duration: 4 Weeks Plan: S/P CERVICAL REPLACEMENT 08/29 NO LIFTING PT INTERVENTIONS CERVICAL ROM ( GENTLE) ,POSTURAL EX'S ,BUE STRENGTHENING ,ACTIVITY MODIFICATION Subjective Subjective: A 39 year old female presents post cervical fusion, surgery was on August 29[address] Lowe . Pt reports that prior to surgery she had severe limited and painful AROM with right shoulder and weakness with dropping things often, and consistent radicular symptoms into the right arm and hand and occasionally into left arm, primarily into thumb and pointer finger. Pt reports after surgery she has less numbness and tingling and only intermittent neck aching pain instead of constant. Pt reports she has an easier time in the shower but is unsure if her strength has returned because limits her to lifting less than a gallon of milk. Following surgery for the first week pt was wearing hard [place] brace when sleeping or when pain was really intense but after week 1 she weaned off of wearing the brace. After 2 week follow-up on September 13 said to use brace as needed. Current pain in neck and arm is worse with reaching overhead or lifting objects like a cup of water. Pt reports current pain is the best with ice but also with rest. Tends to use left arm more often now due to right said causing pain. Pt denies using ibuprofen or tylenol because she has issues with her kidneys. Pt reports she is not currently working and is on FMLA. Return to work date is tentative but estimated 3 months. 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 Pt enjoys gardening as her hobbies and reports that she can still partake in that following the surgery but this causes her pain afterwards. SOCIAL: single VOCATION: Retail Pain Neck: Pain Intensity (Out of 10): 4 Pain Intensity Range: 10 Comment: aching Right Shoulder: Pain Intensity (Out of 10): 4 Pain Intensity Range: 10 Comment: aching Right Hand: Pain Intensity (Out of 10): 3 Pain Intensity Range: 10 Comment: numbness/ tingling/shoots Objective Objective: POSTURE: Rounded shoulders head forward NEURO: - Xie's , gross BUE DTR's 2+ (normal) ,c/o some paresthesia/tingling in hand right PALAPTION: Tenderness to palpation of bilateral cervical paraspinals, right sided UT and thoracic paraspinals AROM BUE: Moderate limitation of right shoulder abduction and flexion CERVICAL ROM: Moderate limitation with right sided rotation and side bending with severe moderate decrease in flexion ROM MMT: Right abd. 4-/5 with pain; left abd. 4-/5; right elbow ext. 4/5; left elbow ext. 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 STRENGTH: (dynamometer) right 80# ,left 90# Special Tests C/S Radiculapathy - Left Upper limb tension test: Negative C/S Radiculapathy - Right Upper limb tension test: Positive Balance/Special Test Scores Oswestry Neck Score: 23 Goals Goal 1:: Patient to be I with HEP for cervical supine surgery Goal Time Frame: 4-6 Weeks Goal 2:: Patient to improve cervical ROM for function for driving and ADLS Goal Time Frame: 4-6 Weeks Goal 3:: Patient to demonstrate 50% improvement with ADLS and housework tasks Goal Time Frame: 4-6 Weeks Goal 4:: Patient to improve to improve neck oswestry score by 5 points to improve QOL and function Goal Time Frame: 4-6 Weeks Goal 5:: Patient be able to perform ADLS and housework tasks with min limiations Goal Time Frame: 4-6 Weeks Rehabilitation Potential Physical Therapy Diagnosis: This patient underwent s/p cervical disc displacement August [address] Lowe with decrease cervical ROM , weakness in arms ,pain thus benefit from skilled PT to address current impairments Rehabilitation Potential: Good Anticipated Interventions Patient/Client Instruction: Educate patient on: Condition and Plan of Care For the Purpose of:: To decrease pain, To increase ROM, To improve muscle performance and motor function, To improve ability to perform ADL's, To increase to (more content not included)... Normal [facility] Cerv Spine 2 or 3 Viewson Cerv Spine 2 or 3 Views [facility] Imaging Services [address] [place], [place] [address] Cerv Spine 2 or 3 Views MR#: [id number] Acct: [id number] Name: ISABEL VILLEDA Rep #: [id number] : 1985 F 38 From: Vic Mccann MD PCP: FREDY Quiroz Status: DEP AMB Study: Cerv Spine 2 or 3 Views Date of Exam: 09/13/24 Exam# [id number] Ordering Dr: Mimi Aldridge PROCEDURE: CERV SPINE 2 OR 3 VIEWS 09/13/2024 REASON FOR EXAM: STATUS POST DISC REPLACEMENT TECHNIQUE: 2 views of the cervical spine. COMPARISON: Cervical spine, 08/30/2024. FINDINGS: There are no compression fractures or subluxations. There is loss of the normal cervical lordosis. Status post intervertebral disc prostheses at C5-6 and C6-7. The remaining intervertebral disc spaces of the cervical spine are preserved. There is no significant facet arthropathy. There is no spondylolisthesis. There are no complications evident. There are surgical clips in the anterior neck consistent with thyroidectomy. RAD/Cerv Spine 2 or 3 Views IMPRESSION: 1. Status post intervertebral disc prostheses at C5-6 and C6-7. There are no complications evident. 2. Other findings as noted. Reading Location: [id number] CC: SAMPLE CARRIERFara Austin; ANTOINE Walker 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: Signed Normal [facility] Orthopedic Visit Reporton Orthopedic Visit Report [facility] [address] [place] [address] OFFICE VISIT Date of Service: 09/13/24 MR#: [id number] Acct: [id number] Name: ISABEL VILLEDA Rep #: [id number] : 1985 Provider: Dr. Eloy Lowe MD Age/Sex: 38/F Location: [facility] Status: Signed Intake Vital Signs 08/03/24 10:32 08/29/24 12:05 Height 5 ft 9 in 5 ft 9 in Intake Visit Reasons: cervical spine Chief Complaint: 2 week post-op Accompanied by: Self Is patient in pain?: Yes Allergies codeine Allergy (Mild, Verified 09/13/24 09:26) Itching fluoxetine (From Prozac) Adverse Reaction (Verified 09/13/24 09:26) EDWIN naproxen (From Naprosyn) Adverse Reaction (Verified 09/13/24 09:26) NOSEBLEED Medications ???Medication ???Instructions ???Recorded ???Confirmed ???Type cholecalciferol (vitamin D3) 125 125 mcg PO TU 07/01/22 09/13/24 Hi story mcg (5,000 unit) capsule dicyclomine 20 mg tablet 20 mg PO TID PRN abdominal pain 09/13/24 History calcitriol 0.5 mcg capsule 1.5 mcg (3 x 0.5 mcg) PO QHS 04/1309/13/24 Rx calcium #90 caps cyanocobalamin (vitamin B-12) 250 500 mcg PO DAILY 06/21/24 5 History mcg tablet ondansetron 4 mg disintegrating 4 mg PO Q8H PRN PRN Nausea #10 tab s 06/21/24 09/13/24 Rx tablet albuterol sulfate 90 mcg/actuation 1 - 2 puff inhalation Q4H PRN WI N 08/23/24 09/13/24 History aerosol inhaler wheezing duloxetine 20 mg capsule,delayed 20 mg PO QHS 08/23/24 09/13/24 His tory release levothyroxine 150 mcg tablet 150 mcg PO DAILY 08/23/24 09/13/24 History pantoprazole 40 mg tablet,delayed 40 mg PO DAILY #30 tabs 08/28/24 09/13/24 Rx release meloxicam 15 mg tablet 15 mg PO DAILY PRN 09/13/24 History PFS Medical History Gastric reflux Tingling of both upper extremities Parotid mass Cellulitis of right thigh Normal stress echocardiogram Acute sinusitis, unspecified Urinary tract infection with hematuria Radiculopathy Chronic back pain Preventative health care Anterior neck pain Other acute postprocedural pain Elevated lipase Low vitamin B12 level Low calcium levels History of stress test PTSD (post-traumatic stress disorder) Paresthesia Depression Anxiety Hypoglycemia Fatty liver Back pain Syncope History of hiatal hernia Smoker Shortness of breath on exertion Leg cramps History of pain when walking Cardiology follow-up encounter Right groin pain Right ovarian cyst Urgency of urination Duodenal mass Epigastric pain Right lower quadrant pain Abnormal tumor markers Hepatomegaly Right renal stone Renal colic on right side History of Holter monitoring Right flank pain Suprapubic discomfort Urinary frequency Hidradenitis suppurativa Abscess of left axilla Urinary tract infection Ureteral calculus, right Irregular heart beat Abnormal urinalysis Diverticulosis Bloating Tenesmus (rectal) Unintentional weight loss Post-surgical hypoparathyroidism Diarrhea Abdominal pain Wears dentures Injury of head and neck Asthma Shortness of breath on exertion Leg cramps Hx of cystic acne Bradycardia Intermittent palpitations COVID-19 (03/17/21) Upper respiratory infection Vertigo Chronic constipation Pelvic pain Annular tear of lumbar disc Degenerative disc disease at L5-S1 level Generalized anxiety disorder with panic attacks Postoperative hypothyroidism Tinea pedis of both feet Hypokalemia Hypocalcemia Polycystic ovaries Hypothyroidism Carpal tunnel syndrome H/O breast lump Tobacco use Hypocalcemia syndrome TMJ (temporomandibular joint syndrome) Arthritis Surgical History History of bilateral salpingo-oophorectomy S/P appendectomy History of appendectomy History of esophagogastroduodenoscop y (EGD) History of incision and drainage S/P hysterectomy H/O thyroidectomy History of cholecystectomy History of total hysterectomy History of thyroidectomy History of partial hysterectomy Family History Father Alcoholism Mother Anemia Depression Hypertension Hyperlipemia Diabetes Grandfather Diabetes Myocardial infarction Grandmother Breast cancer Diabetes Social History household members: none number of children: 4 current occupational status: employed current occupation: [employer] Smoking Status: Current every day smoker tobacco type: cigarettes Tobacco: How many years used: 20 alcohol intake: never substance use type: does not use what type of physical activity do you participate in: none additi (more content not included)... Normal [facility] Basic Metabolic Profile (BMP )on 08-30-2024 BUN/CRE 14.4 RATIO Normal - [facility] Comment on above: Performed By: #### L 500.2500, L100.0500 #### [facility] [address] [place], [address] Calcium [Mass/Vol] 8.3 mg/dL Normal 7.6-11.0 [facility] Comment on above: Performed By: #### L 500.2500, L100.0500 #### [facility] [address] [place], [address] Chloride [Moles/Vol] 104 mmol/L Normal 98-108 [facility] Comment on above: Performed By: #### L 500.2500, L100.0500 #### [facility] [address] [place], [address] CO2 [Moles/Vol] 21.1 mmol/L Normal 21.0-32.0 [facility] Comment on above: Performed By: #### L 500.2500, L100.0500 #### [facility] [address] [place], [address] Creatinine [Mass/Vol] 0.90 mg/dL Normal 0.70-1.20 [facility] Comment on above: Performed By: #### L 500.2500, L100.0500 #### [facility] [address] [place], [address] ECRCL 94.60 ml/min Normal 50-250 [facility] Comment on above: Performed By: #### L 500.2500, L100.0500 #### [facility] [address] [place], [address] GAP 12 Normal 5-15 [facility] Comment on above: Performed By: #### L 500.2500, L100.0500 #### [facility] [address] [place], [address] GFR/1.73 sq M.predicted among non-blacks MDRD (S/P/Bld) [Vol rate/Area] 83 mL/min/{1.73_m2} Normal >60 [facility] Comment on above: Result Comment: mL/m in/1.73m2 CKD-EPI Creatinine Equation (2020) Performed By: #### L 500.2500, L100.0500 #### [facility] [address] [place], [address] Glucose [Mass/Vol] 137 mg/dL High 70-99 [facility] Comment on above: Performed By: #### L 500.2500, L100.0500 #### [facility] [address] [place], [address] Potassium [Moles/Vol] 4.0 mmol/L Normal 3.3-5.1 [facility] Comment on above: Performed By: #### L 500.2500, L100.0500 #### [facility] [address] [place], [address] Sodium [Moles/Vol] 138 mmol/L Normal 133-145 [facility] Comment on above: Performed By: #### L 500.2500, L100.0500 #### [facility] [address] [place], [address] Urea nitrogen [Mass/Vol] 13 mg/dL Normal 4-19 [facility] Comment on above: Performed By: #### L 500.2500, L100.0500 #### [facility] [address] [place], [address] CBC-Complete Blood Cnt No Di ffon 08-30-2024 Erythrocyte distribution width (RBC) [Ratio] 12.4 % Normal 11.6-14.6 [facility] Comment on above: Performed By: #### L 500.2500, L100.0500 #### [facility] [address] [place], [address] Hematocrit (Bld) [Volume fraction] 36.5 % Low 37-47 [facility] Comment on above: Performed By: #### L 500.2500, L100.0500 #### [facility] [address] [place], [address] Hemoglobin (Bld) [Mass/Vol] 12.8 g/dL Normal 12.0-15.0 [facility] Comment on above: Performed By: #### L 500.2500, L100.0500 #### [facility] [address] [place], [address] MCH (RBC) [Entitic mass] 30.2 pg Normal 27.0-32.0 [facility] Comment on above: Performed By: #### L 500.2500, L100.0500 #### [facility] [address] [place], [address] MCHC (RBC) [Mass/Vol] 35.1 g/dL Normal 32-36 [facility] Comment on above: Performed By: #### L 500.2500, L100.0500 #### [facility] [address] [place], [address] MCV (RBC) [Entitic vol] 86.1 fL Normal 81-99 [facility] Comment on above: Performed By: #### L 500.2500, L100.0500 #### [facility] [address] [place], [address] Platelet mean volume (Bld) [Entitic vol] 11.7 fL Normal 6.2-12.0 [facility] Comment on above: Performed By: #### L 500.2500, L100.0500 #### [facility] [address] [place], [address] Platelets (Bld) [#/Vol] 317 10*3/uL Normal 150-450 [facility] Comment on above: Performed By: #### L 500.2500, L100.0500 #### [facility] [address] [place], [address] RBC (Bld) [#/Vol] 4.24 10*6/uL Normal 4.2-5.4 [facility] Comment on above: Performed By: #### L 500.2500, L100.0500 #### [facility] [address] [place], [address] RDW SD 39.2 fl Normal 35.1-43.9 [facility] Comment on above: Performed By: #### L 500.2500, L100.0500 #### [facility] [address] [place], [address] WBC (Bld) [#/Vol] 14.4 10*3/uL High 4.4-11.0 [facility] Comment on above: Performed By: #### L 500.2500, L100.0500 #### [facility] [address] [place], [address] Cerv Spine 2 or 3 Viewson Cerv Spine 2 or 3 Views [facility] Imaging Services [address] [place] [address] Cerv Spine 2 or 3 Views MR#: [id number] Acct: [id number] Name: ISABEL VILLEDA Rep #: [id number] : 1985 F 38 From: Tommy Fortune MD PCP: FREDY Quiroz Status: ADM RENNY Study: Cerv Spine 2 or 3 Views Date of Exam: 08/30/24 Exam# [id number] Ordering Dr: Mimi Aldridge PROCEDURE: CERV SPINE 2 OR 3 VIEWS 08/30/2024 REASON FOR EXAM: S/P CERVICAL DISC REPLACEMENT TECHNIQUE: 2 views of the cervical spine. FINDINGS: The cervical spine is visualized on the lateral view from the skull base to the top of T1 with some shoulder overlap at C7. Status post intervertebral disc replacement prosthesis C5-6 and C6-7 appear intact and anatomic. No fracture or malalignment. No prevertebral soft tissue swelling. Left-sided anterior neck [place] drain, safety pin and cervical collar. Multiple bilateral surgical clips about the area of the thyroid. Visualized apices appear clear. Edentulous. RAD/Cerv Spine 2 or 3 Views IMPRESSION: Status post intervertebral disc replacement prosthesis C5-6 and C6-7 appear intact and anatomic. No fracture or malalignment. Reading Location: [facility] [place] CC: FREYD Austin; ANTOINE Walker 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: Signed Normal [facility] Cerv Spine 2 or 3 Viewson Cerv Spine 2 or 3 Views [facility] Imaging Services [address] [place] [address] Cerv Spine 2 or 3 Views MR#: [id number] Acct: [id number] Name: ISABEL VILLEDA Rep #: [id number] : 1985 F 38 From: Mika Giron MD PCP: FREDY Quiroz Status: REG [facility] Study: Cerv Spine 2 or 3 Views Date of Exam: 08/29/24 Exam# [id number] Ordering Dr: Eloy Lowe MD EXAM: XR Cervical Spine, 2 or 3 Views CLINICAL INDICATION: CERVICAL DISC ARTHROPLASTY TECHNIQUE: Frontal and lateral views of the cervical spine. COMPARISON: No relevant prior studies available. FINDINGS: VERTEBRAE: Unremarkable. No definite fracture. Normal alignment. DISC SPACES: No acute findings. No significant narrowing. SOFT TISSUES: Unremarkable. OTHER FINDINGS: 4 spot images were obtained. Total fluoroscopy time was 19.5 seconds. Total radiation dose was 1.49 mGy. RAD/Cerv Spine 2 or 3 Views IMPRESSION: Fluoroscopic guidance was used intraoperatively. Please refer to operative note for further details. Reading Location: [facility] CC: SAMPLE CARRIER-C Aviva Austin; Dr. Eloy Lowe MD 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: Signed [facility] MR/POSTOP.[facility] 08-29-2024 MR/POSTOP.[facility] Medical Records Department [address] [place] [address] Anesthesia Postop Eval I 08/29/24 1029 MR#: [id number] Acct: [id number] Name: ISABEL VLILEDA Rep #: [id number] : 1985 38 From: Talat Francis CRNA PCP: FREDY Quiroz Status:REG [facility] Y Race: C Location: [place] [address] Anesthesia: Postop Eval I Current Vital Signs Temperature: 97.2 F Pulse Rate: 78 Blood Pressure: 117/67 Respiratory Rate: 16 Pulse Ox: 99 Oxygen Delivery Method: Nasal Cannula Oxygen Flow Rate (L/min): 2 Fraction of Inspired Oxygen (FIO2): 0.28 Assessment Airway patent: Yes Spontaneous unlabored respirations: Yes Mental status: Awake nausea: No Vomiting: No Anesthesia Complication: No Fluid Hydration Crystalloid volume administer (ml): 1,000 Total IV fluid infused: 1,000 Progress Note Anesthesia document: Postop Eval 1 completed: Yes 08/29/24 1030 Date Talat Francis CRNA Cosigner Signature: Date CC: Signed [facility] MR/[id number] 08-29-2024 MR/POSTOPAN2 [facility] Medical Records Department [address] [place] [address] Anesthesia Postop Eval II 08/29/24 1138 MR#: [id number] Acct: [id number] Name: ISABEL VILLEDA Rep #: [id number] : 1985 38 From: Mathew Mcnally MD PCP: Aviva Austin, SAMPLE CARRIER-C Status:ADM RENNY Y Race: C Location: [facility] [id number] Anesthesia Postop Eval I Sum Postop Eval Completion status Anesthesia document: Postop Eval 1 completed: Yes Anesthesia Postop Eval I Summary Anesthesia Postop Eval I Summary: Anesthesia Postop Eval I: Assessment Summary Airway patent Yes 08/29/24 10:30 PLANT AND INSTRUMENT ENGINEER.NFOR Spontaneous unlabored Yes 08/29/24 10:30 PLANT AND INSTRUMENT ENGINEER.NFOR respirations Mental status Awake 08/29/24 10:30 PLANT AND INSTRUMENT ENGINEER.NFOR nausea No 08/29/24 10:30 PLANT AND INSTRUMENT ENGINEER.NFOR Vomiting No 08/29/24 10:30 PLANT AND INSTRUMENT ENGINEER.NFOR Anesthesia Postop Eval I: Fluid Summary Crystalloid volume administer 1,000 08/29/24 10:30 PLANT AND INSTRUMENT ENGINEER.NFOR (ml) Colloids volume administered ( ml) Blood Product volume administered (ml) Total IV fluid infused 1,000 08/29/24 10:30 PLANT AND INSTRUMENT ENGINEER.NFOR Anesthesia Postop Eval I: Summary Notes Anesthesia Complication No 08/29/24 10:30 PLANT AND INSTRUMENT ENGINEER.NFOR Anesthesia Complication Comment: Post-operative progress note Anesthesia: Postop Eval II Evaluation Mental status: Awake Pain Level: 2 nausea: No Vomiting: No 08/29/24 1138 Date Mathew Mcnally MD Cosigner Signature: Date CC: Signed Normal [facility] Operative Reporton 05-21-202 5 Operative Report [facility] Medical Records Department [address] [place] [address] Operative Report 08/29/24 1101 MR#: [id number] Acct: [id number] Name: ISABEL VILLEDA Rep #: [id number] : 1985 38 From: Burke Nuno MD PCP: Aviva Austin, SAMPLE CARRIER-C Status:ADM RENNY Location: [place] [address] Operative Report (Standard) Operative Information Date of Procedure: 08/29/24 Pre-Operative Diagnosis: 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, radiculomyelopathy, prior total thyroidectomy Post-Operative Diagnosis: Same Surgery/Procedure Performed: C5-7 cervical disc replacement traffic rate analyst: Yes Hvac Services Professional: Eloy Lowe Tasks completed by nurse first assist: Opening closing, Dissecting tissue, Removing tissue, Implanting device, Altering tissue, Hemostasis: Electrocautery and Retracting Additional emergency room physician assistant?: Yes Additional Reverberatory Skimmer #2: Mimi Aldridge Tasks completed by emergency room physician assistant #2: Opening closing and Retracting Type of Anesthesia: General RN Documented Start/Stop Times: Operation Date: 08/29/24 07:30 Case Time Into Pre-Op 08/29/24 05:45 Out of Pre-Op 08/29/24 07:24 Anesthesia Start 08/29/24 07:29 Into Room 08/29/24 07:29 Procedure Start 08/29/24 08:07 Procedure End 08/29/24 10:11 Anesthesia End 08/29/24 10:17 Out of Room 08/29/24 10:17 Into Recovery 08/29/24 10:20 Procedure Start Time: 08:07 Procedure Stop Time: 10:11 Select all DRAINS/GRAFTS/IMPLANTS that apply: Drains Drain details: Quarter inch Savannah Estimated Blood Loss: 20 Specimen collected: No Description of surgery: After appropriate identification appropriate holding area patient was brought to the operating room where general endotracheal anesthesia was administered. I assisted anesthesia with placement of a Nims 7 mm endotracheal tube so that the vocal cords coapted with the tube electrodes and recurrent laryngeal nerve monitoring could be performed alongside of the standard nerve monitoring with spine surgery's case. I also asked that an orogastric tube be placed by anesthesia for purposes of palpating the esophagus if it became necessary to do so. After the neck incision was located by spine surgery based on the patient's x-rays the neck was prepped and draped in usual sterile fashion. Formal timeout was conducted to confirm procedure. Following a timeout a transverse cervical incision was made from the midline for a length of approximately 5 cm. This incision was carried down through the subcutaneous layer with electrocautery and the platysma was incised sharply. Just deep to this level there was a left anterior jugular vein that was controlled with selective electrocautery. Then through blunt dissection we were able to sweep through the areolar attachments between the esophagus and the carotid artery retracting the former medially and the latter laterally. This brought us down to the prevertebral fascia which was incised and afforded us exposure of the vertebrae directly. Dr. Lowe then performed two level total disc arthroplasty between C5-C6 and C6-C7. See his dictation for complete operative details. During the course of the procedure we confirmed that there were no concerning findings with the recurrent laryngeal nerve monitoring specifically. I provided limited assistance with retraction and exposure where necessary. At the completion of the disc replacement the surgical cavity was copiously irrigated and inspected for hemostasis. Identified some slight oozing of the C6 vertebral body which was promptly controlled with selective electrocautery. Then a Savannah drain was placed into the depth of the wound adjacent to the vertebra and the platysma was closed around this drain. Skin closure was completed in a subcuticular fashion and patient was awoken from anesthesia and taken to PACU for ongoing recovery. Surgical Findings: ??? Scarring between the lateral aspect of the trachea/esophagus and the carotid sheath medially but more deeply the plane open nicely to facilitate appropriate vertebral exposure ??? Given the trajectory of our dissection for the vertebral exposure the esophagus and recurrent laryngeal nerve were not directly visualized, however, we were assured of normal nerve function by nerve monitoring nutrition technician Complications Complications: No Admit VTE Documentation VTE Mechan Device Prophylaxis: SCD's 08/29/24 1120 Cosigner Signature (if applicable): CC: FREDY Austin; Dr. Eloy Lowe MD; Dr. Burke Nuno MD Signed ADDENDUM by Dr. Burke Nuno MD on 08/29/24 at 1124 Addendum Prior to being able to open the plane between the trachea and esophagus medially and the carotid sheath laterally we made our entrance to the deeper tissues beyond the platysma by bluntly entering the space between the borders of the omohyoid muscle and sternal hyoid muscle anteriorly a (more content not included)... 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, radiculomyelopathy, prior thyroidectomy Post-Operative Diagnosis: Same Surgery/Procedure Performed: C5-7 cervical disc replacement traffic rate analyst: Yes Hvac Services Professional: Burke Nuno Tasks completed by nurse first assist: Other (Ua-zivbzrq-krlc and neck surgery-Access Surgeon-severe scarring due to thyroidectomy) Additional emergency room physician assistant?: Yes Additional Reverberatory Skimmer #2: Mimi Aldridge Tasks completed by emergency room physician assistant #2: Closing, Hemostasis: Electrocautery and Retracting Type of Anesthesia: General RN Documented Start/Stop Times: Operation Date: 08/29/24 07:30 Case Time Into Pre-Op 08/29/24 05:45 Out of Pre-Op 08/29/24 07:24 Anesthesia Start 08/29/24 07:29 Into Room 08/29/24 07:29 Procedure Start 08/29/24 08:07 Procedure End 08/29/24 10:11 Anesthesia End 08/29/24 10:17 Out of Room 08/29/24 10:17 Procedure Start Time: 08:07 Procedure Stop Time: 10:11 Select all DRAINS/GRAFTS/IMPLANTS that apply: Drains Drain details: Uvaldo and Prosthetic device Prosthetic device details: Zamzam Mobi-C cervical disc replacement prosthesis Estimated Blood Loss: 20 cc Specimen collected: No Description of surgery: Preoperative diagnosis: C5-7 disc degeneration with stenosis, with radiculomyelopathy Postoperative diagnosis: same Name of procedure: C5-7 anterior cervical disc replacement - Cervical disc replacement C5-6, CPT code 12375 - Cervical disc replacement C6-7, CPT code 20684/51 Attending surgeon: Eloy Lowe M.D. Co-surgeon: Dr. Burke Nuno, head and neck surgery, access due to previous severe scarring from thyroidectomy Anesthesia: Gen. endotracheal Estimated blood loss: 20 mL Complications: None Instrumentation used: Marlene Biomet Mobi-C cervical disc replacement implants Indications: The patient is a pleasant 38-year-old lady who presented with symptoms of neck pain, progressive right worse than left upper extremity radiation, weakness, worsening difficulty with dexterity and balance. MRI revealed C5-7 disc herniations show central, broad-based causing severe central stenosis. In order to halt the progression of myelopathy, patient requested surgical intervention. All risks and benefits of the procedure were explained to the patient. The risks include but are not limited to infection, bleeding, injury to nerves and vessels, vertebral artery injury, spinal cord injury, paralysis, vocal cord paralysis, injury to esophagus, need for further procedures, adjacent segment degeneration, heterotopic ossification, implant loosening, implant failure, DVT, pulmonary embolism, cardiopulmonary event, etc. Procedure: The patient was identified in the preoperative suite using unique patient identifiers. Skin was marked consent was taken and all questions were answered. The patient was then brought back to the operative room and a timeout was performed. General endotracheal anesthesia was given. Intraoperative neuro monitoring leads were applied. The patient was carefully positioned supine on a regular OR table. A lateral x-ray with a C-arm was done to identify the level and to define the incision. The anterior neck was then prepped and draped in the usual fashion. A final timeout was then performed. A transverse skin incision was then taken to the left of midline 2 fingerbreadths above the clavicle. Subcutaneous tissue was then divided with Bovie. Platysma was identified and cut transversely with scissors. The fascial interval between the sternocleidomastoid and the larynx was developed. Omohyoid was identified and mobilized medially and inferiorly. Carotid sheath was laterally while the esophagus with the larynx was retracted medially to reach the prevertebral fascia. All prevertebral layers of fascia were bluntly dissected and a Kempton pin was placed into one of the bodies. A lateral C-arm image was used to confirm the correct level. Once this was done longus coli muscle was elevated on both sides at and above and below C5-7 discs. Severe scarring was noticed around the left omohyoid muscle making it difficult to access planes easily. Significant scarring between the carotid sheath and prevertebral soft tissue are also noticed requiring additional time for adequate safe exposure. Dr. Nuno assisted with this difficult exposure. Please see his note for additional details. Shadow line retracto (more content not included)... Normal [facility] Hepatitis A AB, Totalon 05- HEPATITIS A,TOT Negative Normal Negative [facility] Comment on above: Result Comment: Comm ent: The HAV total antibody assay detects both IgG and IgM but does not differentiate between them. A negative result suggests susceptibility to infection. A positive result could be due to vaccination, previously resolved infection or active infection. Testing for HAV IgM should be performed if active HAV infection is suspected. [email or web address] offers profiles that will automatically reflex positive HAV total antibody results to IgM (e.g., panel #[id number] HAV Antibody w/ Rfx). Performed at: [address] [id number] [place]: Dwayne Johnson PhD, Phone: [phone] Performed By: #### M 100.651, L100.0100, BTSPAT, L500.2500, L3890.6006, L3100.0300, L501.9985, L3890.6202, L3890.6301 ####[facility] [address] [facility]. [place], [place], [id number] MRSA/SAID NASAL SCREENon MRSA+SAID SCRN Reason for Exam: Stephen stacey MRSA MRSA Negative S. AUREUS S. aureus Negative Normal [facility] Comment on above: Performed By: #### M 100.651, L100.0100, BTSPAT, L500.2500, L3890.6006, L3100.0300, L501.9985, L3890.6202, L3890.6301 ####[facility] [address] [facility]. [place], [place], [id number] 12 Lead EKGon 08-23-2024 12 Lead EKG [facility] Cardiovascular Services [address] [place] [address] 12 Lead EKG 08/23/24 1352 MR#: [id number] Acct: [id number] Name: ISABEL VILLEDA Rep #: [id number] : 1985 38 From: Bird Chen MD Attending Dr: Dr. Eloy Lowe MD Status: PRE SDC Ordering Dr: Eloy Lowe MD Date: 08/23/24 Location: [facility] Sex: F C Admitted: Test Reason : PRE OP Blood Pressure : */* mmHG Vent. Rate : 69 BPM Atrial Rate : 69 BPM P-R Int : 146 ms QRS Dur : 82 ms QT Int : 408 ms P-R-T Axes : 81 56 55 degrees QTcB Int : 437 ms Normal sinus rhythm Normal ECG Confirmed by PAT BONNER, BIRD ([id number]), web editor NIKOLE CORRALES ([id number]) on 08/27/2024 7:04:51 AM Referred By: Eloy Lowe Confirmed By: BIRD CHEN MD 08/27/24 0704 Date Bird Chen MD CC: SAMPLE CARRIER-C Aviva Austin; Dr. Eloy Lowe MD Signed Normal [facility] Basic Metabolic Profile (BMP )on 08-23-2024 BUN/CRE 13.8 RATIO Normal 10-20 [facility] Comment on above: Performed By: #### M 100.651, L100.0100, BTSPAT, L500.2500, L3890.6006, L3100.0300, L501.9985, L3890.6202, L3890.6301 ####[facility] [address] [place], [address] Calcium [Mass/Vol] 8.9 mg/dL Normal 7.6-11.0 [facility] Comment on above: Performed By: #### M 100.651, L100.0100, BTSPAT, L500.2500, L3890.6006, L3100.0300, L501.9985, L3890.6202, L3890.6301 ####[facility] [address] [place], [address] Chloride [Moles/Vol] 103 mmol/L Normal 98-108 [facility] Comment on above: Performed By: #### M 100.651, L100.0100, BTSPAT, L500.2500, L3890.6006, L3100.0300, L501.9985, L3890.6202, L3890.6301 ####[facility] [address] [place], [address] CO2 [Moles/Vol] 22.3 mmol/L Normal 21.0-32.0 [facility] Comment on above: Performed By: #### M 100.651, L100.0100, BTSPAT, L500.2500, L3890.6006, L3100.0300, L501.9985, L3890.6202, L3890.6301 ####[facility] [address] [place], [address] Creatinine [Mass/Vol] 1.01 mg/dL Normal 0.70-1.20 [facility] Comment on above: Performed By: #### M 100.651, L100.0100, BTSPAT, L500.2500, L3890.6006, L3100.0300, L501.9985, L3890.6202, L3890.6301 ####[facility] [address] [place], [address] GAP 13 Normal 5-15 [facility] Comment on above: Performed By: #### M 100.651, L100.0100, BTSPAT, L500.2500, L3890.6006, L3100.0300, L501.9985, L3890.6202, L3890.6301 ####[facility] [address] [place], [address] GFR/1.73 sq M.predicted among non-blacks MDRD (S/P/Bld) [Vol rate/Area] 72 mL/min/{1.73_m2} Normal >60 [facility] Comment on above: Result Comment: mL/m in/1.73m2 CKD-EPI Creatinine Equation (2020) Performed By: #### M 100.651, L100.0100, BTSPAT, L500.2500, L3890.6006, L3100.0300, L501.9985, L3890.6202, L3890.6301 ####[facility] [address] [place], [address] Glucose [Mass/Vol] 105 mg/dL High 70-99 [facility] Comment on above: Performed By: #### M 100.651, L100.0100, BTSPAT, L500.2500, L3890.6006, L3100.0300, L501.9985, L3890.6202, L3890.6301 ####[facility] [address] [place], [address] Potassium [Moles/Vol] 3.8 mmol/L Normal 3.3-5.1 [facility] Comment on above: Performed By: #### M 100.651, L100.0100, BTSPAT, L500.2500, L3890.6006, L3100.0300, L501.9985, L3890.6202, L3890.6301 ####[facility] [address] [place], [address] Sodium [Moles/Vol] 139 mmol/L Normal 133-145 [facility] Comment on above: Performed By: #### M 100.651, L100.0100, BTSPAT, L500.2500, L3890.6006, L3100.0300, L501.9985, L3890.6202, L3890.6301 ####[facility] [address] [place], [address] Urea nitrogen [Mass/Vol] 14 mg/dL Normal 4-19 [facility] Comment on above: Performed By: #### M 100.651, L100.0100, BTSPAT, L500.2500, L3890.6006, L3100.0300, L501.9985, L3890.6202, L3890.6301 ####[facility] [address] [place], [address] CBC W/Diff, Automatedon 05 Absolute Lymph 2.90 X10 3/uL Normal 0.83-4.51 [facility] Comment on above: Performed By: #### M 100.651, L100.0100, BTSPAT, L500.2500, L3890.6006, L3100.0300, L501.9985, L3890.6202, L3890.6301 #### [facility] [address] [place], [address] Absolute Neut 2.0 X10 3/uL Normal 2.0-7.7 [facility] Comment on above: Performed By: #### M 100.651, L100.0100, BTSPAT, L500.2500, L3890.6006, L3100.0300, L501.9985, L3890.6202, L3890.6301 #### [facility] [address] [place], [address] Basophils/100 WBC (Bld) 0.8 % Normal 0-1 [facility] Comment on above: Performed By: #### M 100.651, L100.0100, BTSPAT, L500.2500, L3890.6006, L3100.0300, L501.9985, L3890.6202, L3890.6301 #### [facility] [address] [place], [address] Eosinophils/100 WBC (Bld) 8.4 % High 0-5 [facility] Comment on above: Performed By: #### M 100.651, L100.0100, BTSPAT, L500.2500, L3890.6006, L3100.0300, L501.9985, L3890.6202, L3890.6301 #### [facility] [address] [place], [address] Erythrocyte distribution width (RBC) [Ratio] 12.8 % Normal 11.6-14.6 [facility] Comment on above: Performed By: #### M 100.651, L100.0100, BTSPAT, L500.2500, L3890.6006, L3100.0300, L501.9985, L3890.6202, L3890.6301 #### [facility] [address] [place], [address] Hematocrit (Bld) [Volume fraction] 40.3 % Normal 37-47 [facility] Comment on above: Performed By: #### M 100.651, L100.0100, BTSPAT, L500.2500, L3890.6006, L3100.0300, L501.9985, L3890.6202, L3890.6301 #### [facility] [address] [place], [address] Hemoglobin (Bld) [Mass/Vol] 13.9 g/dL Normal 12.0-15.0 [facility] Comment on above: Performed By: #### M 100.651, L100.0100, BTSPAT, L500.2500, L3890.6006, L3100.0300, L501.9985, L3890.6202, L3890.6301 #### [facility] [address] [place], [address] IG% 0.200 Normal 0.0-0.9 [facility] Comment on above: Result Comment: IG% - Immature Granulocytes (promyelocytes, myelocytes and metamyelocytes) > 1% indicates that a LEFT SHIFT is Present. Performed By: #### M 100.651, L100.0100, BTSPAT, L500.2500, L3890.6006, L3100.0300, L501.9985, L3890.6202, L3890.6301 #### [facility] [address] [place], [address] Lymphocytes/100 WBC (Bld) 47.8 % High 19-41 [facility] Comment on above: Performed By: #### M 100.651, L100.0100, BTSPAT, L500.2500, L3890.6006, L3100.0300, L501.9985, L3890.6202, L3890.6301 #### [facility] [address] [place], [address] MCH (RBC) [Entitic mass] 29.9 pg Normal 27.0-32.0 [facility] Comment on above: Performed By: #### M 100.651, L100.0100, BTSPAT, L500.2500, L3890.6006, L3100.0300, L501.9985, L3890.6202, L3890.6301 #### [facility] [address] [place], [address] MCHC (RBC) [Mass/Vol] 34.5 g/dL Normal 32-36 [facility] Comment on above: Performed By: #### M 100.651, L100.0100, BTSPAT, L500.2500, L3890.6006, L3100.0300, L501.9985, L3890.6202, L3890.6301 #### [facility] [address] [place], [address] MCV (RBC) [Entitic vol] 86.7 fL Normal 81-99 [facility] Comment on above: Performed By: #### M 100.651, L100.0100, BTSPAT, L500.2500, L3890.6006, L3100.0300, L501.9985, L3890.6202, L3890.6301 #### [facility] [address] [place], [address] Monocytes/100 WBC (Bld) 9.4 % Normal 0-10 [facility] Comment on above: Performed By: #### M 100.651, L100.0100, BTSPAT, L500.2500, L3890.6006, L3100.0300, L501.9985, L3890.6202, L3890.6301 #### [facility] [address] [place], [address] Neutrophils/100 WBC (Bld) 33.4 % Low 47-70 [facility] Comment on above: Performed By: #### M 100.651, L100.0100, BTSPAT, L500.2500, L3890.6006, L3100.0300, L501.9985, L3890.6202, L3890.6301 #### [facility] [address] [place], [address] Nucleated RBC (Bld) [#/Vol] 0 10*3/uL Normal 0-5 [facility] Comment on above: Performed By: #### M 100.651, L100.0100, BTSPAT, L500.2500, L3890.6006, L3100.0300, L501.9985, L3890.6202, L3890.6301 #### [facility] [address] [place], [address] Platelet mean volume (Bld) [Entitic vol] 11.6 fL Normal 6.2-12.0 [facility] Comment on above: Performed By: #### M 100.651, L100.0100, BTSPAT, L500.2500, L3890.6006, L3100.0300, L501.9985, L3890.6202, L3890.6301 #### [facility] [address] [place], [address] Platelets (Bld) [#/Vol] 285 10*3/uL Normal 150-450 [facility] Comment on above: Performed By: #### M 100.651, L100.0100, BTSPAT, L500.2500, L3890.6006, L3100.0300, L501.9985, L3890.6202, L3890.6301 #### [facility] [address] [place], [address] RBC (Bld) [#/Vol] 4.65 10*6/uL Normal 4.2-5.4 [facility] Comment on above: Performed By: #### M 100.651, L100.0100, BTSPAT, L500.2500, L3890.6006, L3100.0300, L501.9985, L3890.6202, L3890.6301 #### [facility] [address] [place], [address] RDW SD 40.8 fl Normal 35.1-43.9 [facility] Comment on above: Performed By: #### M 100.651, L100.0100, BTSPAT, L500.2500, L3890.6006, L3100.0300, L501.9985, L3890.6202, L3890.6301 #### [facility] [address] [place], [address] WBC (Bld) [#/Vol] 6.1 10*3/uL Normal 4.4-11.0 [facility] Comment on above: Performed By: #### M 100.651, L100.0100, BTSPAT, L500.2500, L3890.6006, L3100.0300, L501.9985, L3890.6202, L3890.6301 #### [facility] [address] [place], [address] HIVon 08-23-2024 HIV Non-Reactive Normal Nonreactive [facility] Comment on above: Result Comment: Non- Reactive Reactive Repeatedly reactive samples must be confirmed according to CDC recommended confirmatory algorithms. The subresults for either HIVAG or AHIV can be used as an aid in the selection of the confirmation algorithm for reactive samples. Send out specimens with Reactive results to [facility] for confirmation. Order the HIV antibody detection and differentiation: lc#[id number] Performed By: #### M 100.651, L100.0100, BTSPAT, L500.2500, L3890.6006, L3100.0300, L501.9985, L3890.6202, L3890.6301 ####[facility] [address] [place], [address] Hemoglobin A1con 08-23-2024 HbA1c (Bld) [Mass fraction] 5.6 % Normal <=5.6 [facility] Comment on above: Result Comment: Norm al < 5.7 % Prediabetic 5.7 - 6.4 % Diabetic >or= 6.5 % Please note range changes. Performed By: #### M 100.651, L100.0100, BTSPAT, L500.2500, L3890.6006, L3100.0300, L501.9985, L3890.6202, L3890.6301 #### [facility] [address] [place], [place], [id number] Hepatitis B Surface Antibody on 08-23-2024 HEP B Surf Ab Non-Reactive Normal [facility] Comment on above: Result Comment: <8.5 mIU/mL: Non-Reactive 8.5<= x <11.5 mIU/mL: Indeterminate >=11.5 mIU/mL: Reactive Non Reactive: Inconsistent with immunity less than <10 mIU/mL Reactive: Consistent with immunity greater than or equal to 10 mIU/mL Performed By: #### M 100.651, L100.0100, BTSPAT, L500.2500, L3890.6006, L3100.0300, L501.9985, L3890.6202, L3890.6301 ####[facility] [address] [place], [address] Hepatitis C Antibodyon 08-23 Hepatitis C Ab Non-Reactive Normal Nonreactive [facility] Comment on above: Result Comment: Reac tive: Presumptive evidence of antibodies to HCV. Follow CDC recommendations for supplemental testing. Non-Reactive: Antibodies to HCV were not detected; does not exclude the possibility of exposure to HCV Reactive Results are presumptive evidence of antibodies to HCV. Follow CDC recommendations for supplemental testing. Order confirmation testing: HCV Quant by PCR testing - HCVPCR #[id number] Non Reactive: < 0.8 Equivocal: >/= 0.8 to < 1.0 Reactive: >/= 1.0 The [facility] requires that a reactive/equivocal HCV antibody result be sent out for confirmation. HCV Quant by PCR testing. Performed By: #### M 100.651, L100.0100, BTSPAT, L500.2500, L3890.6006, L3100.0300, L501.9985, L3890.6202, L3890.6301 ####[facility] [address] 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 cells, inferiorly. Disc levels as follows: C2-3: No disc herniation, central spinal or neural foraminal stenosis bilaterally C3-4: No disc herniation, central spinal or neural foraminal stenosis bilaterally C4-5: Tiny central disc bulge. No significant central spinal or left neural foraminal stenosis. There is mild neural foraminal stenosis on the right secondary to uncovertebral joint hypertrophy. C5-6: Broad-based disc osteophyte complex contacts and indents the ventral cord. Spinal canal is narrowed to approximately 6.5 mm AP. Severe neural foraminal stenosis bilaterally secondary to uncovertebral joint hypertrophy worse on the right C6-7: Broad-based disc osteophyte complex indents the ventral cord and narrows the spinal canal to approximately 5 mm AP. There is severe neural foraminal stenosis bilaterally secondary to uncovertebral joint hypertrophy. C7-T1: Unremarkable T1-2: Evaluated on sagittal imaging only. No significant disc herniation, central spinal or neural foraminal stenosis bilaterally T2-3: Evaluated on sagittal imaging only. Minimal disc bulge without significant central spinal or neural foraminal stenosis bilaterally Parotid neoplasm not entirely excluded. MRI/Spine Cervical (Routine) IMPRESSION: 1. Well-marginated 1.2 x 1.2 cm T1/T2 hypointensity within the superficial lobe of the left parotid gland, with some small areas of T1 shortening, favors Warthin's tumor. Other parotid neoplasm not entirely excluded. Correlate with history. 2. At the C6-7 level, disc osteophyte complex indents the ventral cord and narrows the spinal canal to 5 mm AP. There is severe neural foraminal stenosis bilaterally. 3. At the C5-6 level, broad-based disc osteophyte complex narrows the spinal canal to 6.5 mm AP. Severe neural foraminal stenosis bilaterally, worse on the right. 4. At the C4-5 level, tiny central disc bulge without central spinal stenosis. Mild neural foraminal stenosis on the right. 5. Additional findings, as detailed above. Reading Location: [facility] CC: FREDY Austin; ANTOINE Walker 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: Signed Normal [facility] Pelvic w/ Transvaginalon Pelvic w/ Transvaginal [facility] Imaging Services [address] [place] [address] Pelvic w/ Transvaginal MR#: [id number] Acct: [id number] Name: ISABEL VILLEDA Rep #: [id number] : 1985 F 38 From: Dimitris burns MD PCP: FREDY Quiroz Status: REG CLI Study: Pelvic w/ Transvaginal Date of Exam: 07/12/24 Exam# [id number] Ordering Dr: Maddy Hanley PROCEDURE: PELVIC W/ TRANSVAGINAL REASON FOR EXAM: OVARIAN CYST TECHNIQUE: Transabdominal and transvaginal pelvic ultrasound COMPARISON: None FINDINGS: Measurements: Uterus: Patient is status post hysterectomy. Right Ovary: 2.4 cm x 2.1 cm x 1.9 cm with a volume of 4.9 mL. Left Ovary: 6.2 cm x 4.5 cm x 2.3 cm with a volume of 33 mL. TRANSABDOMINAL: Uterus: Status post hysterectomy. Right ovary: Small follicles are seen. Left ovary: Dominant cyst within the ovary measuring 4.2 cm 4 cm 1.9 cm. Other: No large pelvic mass identified. Transvaginal sonography was performed as transabdominal imaging did not explain the patient's presenting symptoms. TRANSVAGINAL: Right ovary: Small right ovarian follicles. Left ovary: 4.2 cm x 4 cm x 1.9 cm cyst. Other adnexal findings: None. Cul-de-sac: No free intraperitoneal fluid identified. US/Pelvic w/ Transvaginal IMPRESSION: Status post hysterectomy. Left ovarian cyst measuring 4.2 cm x 4 cm 1.9 cm. Reading Location: [place] [address] CC: FREDY Austin; Dr. Maddy Hanley MD 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: Signed Normal [facility] Smoking Pipe Maker Office Visit Reporton 07-09-2024 Smoking Pipe Maker Office Visit Report [facility] [address], [address] [place] [address] OFFICE VISIT Date of Service: 07/09/24 MR#: [id number] Acct: [id number] Name: ISABEL VILLEDA Rep #: [id number] : 1985 Provider: Dr. Maddy eastman MD Age/Sex: 38/F Location: [facility] Status: Signed Intake Vital Signs 05/11/24 11:17 06/21/24 06:40 06/29/24 08:20 07/09/24 11:04 Height 5 ft 9 in 5 ft 9 in 5 ft 9 in 5 ft 9 in Weight: 186 lb BMI 27.4 BP 105/70 Intake Visit Reasons: SURGICAL CONSULT (CCF) Chick Grader Required: No Is patient in pain?: No Allergies codeine Allergy (Mild, Verified 07/09/24 11:06) Itching fluoxetine (From Prozac) Adverse Reaction (Verified 07/09/24 11:06) EDWIN naproxen (From Naprosyn) Adverse Reaction (Verified 07/09/24 11:06) NOSEBLEED Medications ???Medication ???Instructions ???Recorded ???Confirmed ???Type cholecalciferol (vitamin D3) 125 125 mcg PO DAILY 07/01/22 07/09/24 History mcg (5,000 unit) capsule dicyclomine 20 mg tablet 20 mg PO TID PRN abdominal pain 07/09/24 History tizanidine 4 mg tablet 4 mg PO BID PRN PAIN 12/03/2206/11 History calcitriol 0.5 mcg capsule 1.5 mcg (3 x 0.5 mcg) PO QHS 04/1307/09/24 Rx calcium #90 caps levothyroxine 175 mcg tablet 150 mcg PO DAILY 10/27/23 07/09/24 History pantoprazole 40 mg tablet,delayed 40 mg PO DAILY #30 tabs 11/30/23 07/09/24 Rx release cyanocobalamin (vitamin B-12) 250 500 mcg PO DAILY 06/21/24 5 History mcg tablet ondansetron 4 mg disintegrating 4 mg PO Q8H PRN PRN Nausea #10 tab s 06/21/24 07/09/24 Rx tablet duloxetine 20 mg capsule,delayed 20 mg PO BID 1 month #60 caps 06/0907/09/24 Rx release Is last menstrual period known: No Patient : No : No PFSH Medical History Cellulitis of right thigh Normal stress echocardiogram Acute sinusitis, unspecified Urinary tract infection with hematuria Radiculopathy Chronic back pain Preventative health care Anterior neck pain Other acute postprocedural pain Elevated lipase Low vitamin B12 level Low calcium levels History of stress test PTSD (post-traumatic stress disorder) Paresthesia Depression Anxiety Hypoglycemia Fatty liver Back pain Syncope History of hiatal hernia Smoker Shortness of breath on exertion Leg cramps History of pain when walking Cardiology follow-up encounter Chest pain Right groin pain Right ovarian cyst Urgency of urination Duodenal mass Epigastric pain Kidney stones Right lower quadrant pain Abnormal tumor markers Hepatomegaly Right renal stone Renal colic on right side History of Holter monitoring Right flank pain Suprapubic discomfort Urinary frequency Hidradenitis suppurativa Abscess of left axilla Urinary tract infection Ureteral calculus, right Irregular heart beat Abnormal urinalysis Diverticulosis Bloating Tenesmus (rectal) Unintentional weight loss Post-surgical hypoparathyroidism Diarrhea Abdominal pain Wears dentures History of COVID-19 Injury of head and neck Asthma Shortness of breath on exertion Leg cramps Hx of cystic acne Bradycardia Intermittent palpitations COVID-19 (03/17/21) Upper respiratory infection Vertigo Chronic constipation Pelvic pain Annular tear of lumbar disc Degenerative disc disease at L5-S1 level Generalized anxiety disorder with panic attacks Postoperative hypothyroidism Tinea pedis of both feet Hypokalemia Hypocalcemia Polycystic ovaries Hypothyroidism Carpal tunnel syndrome H/O breast lump Seasonal allergies Tobacco use Hypocalcemia syndrome TMJ (temporomandibular joint syndrome) Arthritis Surgical History History of esophagogastroduodenoscop y (EGD) History of bilateral salpingo-oophorectomy S/P appendectomy History of appendectomy History of esophagogastroduodenoscop y (EGD) History of incision and drainage S/P hysterectomy H/O thyroidectomy History of cholecystectomy History of total hysterectomy History of thyroidectomy History of partial hysterectomy Family History Father Alcoholism Mother Anemia Depression Hypertension Hyperlipemia Diabetes Grandfather Diabetes Myocardial infarction Grandmother Breast cancer Diabetes Social History (Updated 07/09/24 @ 11:10 by Betsy Mustafa) household members: none number of children: 4 current occupational status: employed current occupation: [employer] Smoking Status: Current every day smoker tobacco type: cigarettes Tobacco: How many years used: 20 alcohol intake: neve (more content not included)... Normal [facility] Cerv Spine 4 or 5 Viewson Cerv Spine 4 or 5 Views [facility] Imaging Services [address] [place] [address] Cerv Spine 4 or 5 Views MR#: [id number] Acct: [id number] Name: ISABEL VILLEDA Rep #: [id number] : 1985 F 38 From: Dimitris burns MD PCP: Aviva Austin, SAMPLE CARRIER-C Status: DEP AMB Study: Cerv Spine 4 or 5 Views Date of Exam: 06/29/24 Exam# [id number] Ordering Dr: Mimi Aldridge PROCEDURE: CERV SPINE 4 OR 5 VIEWS 06/29/2024 REASON FOR EXAM: CHRONIC PAIN, NKI--PT REFUSED TO REMOVE EARRINGS TECHNIQUE: 4 views of the cervical spine were obtained including flexion-extension views.. COMPARISON: Comparison is made with prior study dated November 03, 2022. FINDINGS: Vertebrae: Unremarkable disc spaces: Unremarkable Alignment: Normal soft tissues: Surgical clips are seen in the lower cervical region most likely secondary to prior thyroidectomy. Other: RAD/Cerv Spine 4 or 5 Views IMPRESSION: NEGATIVE CERVICAL SPINE. Disclaimer: Reading Location: [facility] CC: FREDY Austin; ANTOINE Walker 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: Signed Normal [facility] Orthopedic Visit Reporton Orthopedic Visit Report [facility] [address] [place] [address] OFFICE VISIT Date of Service: 06/29/24 MR#: [id number] Acct: [id number] Name: ISABEL VILLEDA Rep #: [id number] : 1985 Provider: ANTOINE Walker Age/Sex: 38/F Location: [facility] Status: Signed Intake Vital Signs 06/21/24 06:40 06/29/24 08:20 Height 5 ft 9 in 5 ft 9 in Weight: 182 lb 2 oz BMI 26.9 Intake Visit Reasons: CERVICAL SPINE Chief Complaint: Cervical spine neck pain Accompanied by: Self Is patient in pain?: Yes Pain scale (1-10): 3 Allergies codeine Allergy (Mild, Verified 06/29/24 08:22) Itching fluoxetine (From Prozac) Adverse Reaction (Verified 06/29/24 08:22) EDWIN naproxen (From Naprosyn) Adverse Reaction (Verified 06/29/24 08:22) NOSEBLEED Medications ???Medication ???Instructions ???Recorded ???Confirmed ???Type cholecalciferol (vitamin D3) 125 125 mcg PO DAILY 07/01/22 06/29/24 History mcg (5,000 unit) capsule dicyclomine 20 mg tablet 20 mg PO TID PRN abdominal pain 06/29/24 History tizanidine 4 mg tablet 4 mg PO BID PRN PAIN 12/03/22/05/05 History calcitriol 0.5 mcg capsule 1.5 mcg (3 x 0.5 mcg) PO QHS 04/1306/29/24 Rx calcium #90 caps levothyroxine 175 mcg tablet 150 mcg PO DAILY 10/27/23 06/29/24 History pantoprazole 40 mg tablet,delayed 40 mg PO DAILY #30 tabs 11/30/23 06/29/24 Rx release cyanocobalamin (vitamin B-12) 250 500 mcg PO DAILY 06/21/24 5 History mcg tablet ondansetron 4 mg disintegrating 4 mg PO Q8H PRN PRN Nausea #10 tab s 06/21/24 06/29/24 Rx tablet duloxetine 20 mg capsule,delayed 20 mg PO BID 1 month #60 caps 06/0906/29/24 Rx release Have you fallen in the past year?: No PFSH Medical History Cellulitis of right thigh Normal stress echocardiogram Acute sinusitis, unspecified Urinary tract infection with hematuria Radiculopathy Chronic back pain Preventative health care Anterior neck pain Other acute postprocedural pain Elevated lipase Low vitamin B12 level Low calcium levels History of stress test PTSD (post-traumatic stress disorder) Paresthesia Depression Anxiety Hypoglycemia Fatty liver Back pain Syncope History of hiatal hernia Smoker Shortness of breath on exertion Leg cramps History of pain when walking Cardiology follow-up encounter Chest pain Right groin pain Right ovarian cyst Urgency of urination Duodenal mass Epigastric pain Kidney stones Right lower quadrant pain Abnormal tumor markers Hepatomegaly Right renal stone Renal colic on right side History of Holter monitoring Right flank pain Suprapubic discomfort Urinary frequency Hidradenitis suppurativa Abscess of left axilla Urinary tract infection Ureteral calculus, right Irregular heart beat Abnormal urinalysis Diverticulosis Bloating Tenesmus (rectal) Unintentional weight loss Post-surgical hypoparathyroidism Diarrhea Abdominal pain Wears dentures History of COVID-19 Injury of head and neck Asthma Shortness of breath on exertion Leg cramps Hx of cystic acne Bradycardia Intermittent palpitations COVID-19 (03/17/21) Upper respiratory infection Vertigo Chronic constipation Pelvic pain Annular tear of lumbar disc Degenerative disc disease at L5-S1 level Generalized anxiety disorder with panic attacks Postoperative hypothyroidism Tinea pedis of both feet Hypokalemia Hypocalcemia Polycystic ovaries Hypothyroidism Carpal tunnel syndrome H/O breast lump Seasonal allergies Tobacco use Hypocalcemia syndrome TMJ (temporomandibular joint syndrome) Arthritis Surgical History History of esophagogastroduodenoscop y (EGD) History of bilateral salpingo-oophorectomy S/P appendectomy History of appendectomy History of esophagogastroduodenoscop y (EGD) History of incision and drainage S/P hysterectomy H/O thyroidectomy History of cholecystectomy History of total hysterectomy History of thyroidectomy History of partial hysterectomy Family History Father Alcoholism Mother Anemia Depression Hypertension Hyperlipemia Diabetes Grandfather Diabetes Myocardial infarction Grandmother Breast cancer Diabetes Social History household members: none Smoking Status: Current every day smoker tobacco type: cigarettes Tobacco: How many years used: 20 alcohol intake: never substance use type: does not use what type of physical activity do you participate in: none HPI CERVICAL SPINE Detail (more content not included)... Normal [facility] Abdomen/Pelvis without Conto n 06-21-2024 Abdomen/Pelvis without Cont [facility] Imaging Services [address] [place] [id number] Abdomen/Pelvis without Cont MR#: [id number] Acct: [id number] Name: ISABEL VILLEDA Rep #: [id number] : 1985 F 38 From: Mika Giron MD PCP: Aviva Austin SAMPLE CARRIER-C Status: REG ER Study: Abdomen/Pelvis without Cont Date of Exam: 06/09 07/03 Exam# [id number] Ordering Dr: Ravin Hill DO EXAM: CT Abdomen and Pelvis Without Intravenous Contrast CLINICAL INDICATION: LEFT FLANK PAIN TECHNIQUE: Axial computed tomography images of the abdomen and pelvis without intravenous contrast. This CT exam was performed using one or more of the following dose reduction techniques: automated exposure control, adjustment of the mA and/or kV according to patient size, and/or use of iterative reconstruction technique. COMPARISON: CT Abdomen Pelvis dated 03/15/2023 FINDINGS: LUNG BASES: Unremarkable. No mass. No consolidation. ABDOMEN: LIVER: Hepatomegaly with fatty infiltration. GALLBLADDER AND BILE DUCTS: Unremarkable. No calcified stones. No ductal dilation. PANCREAS: Unremarkable. No ductal dilation. SPLEEN: Unremarkable. No splenomegaly. ADRENALS: Unremarkable. No mass. KIDNEYS AND URETERS: Unremarkable. No stones within either kidney. No hydronephrosis. STOMACH AND BOWEL: Fecal retention in the colon consistent with constipation. No obstruction. No mucosal thickening. PELVIS: APPENDIX: No findings to suggest acute appendicitis. BLADDER: Unremarkable. No stones. REPRODUCTIVE: 4.7 by 1.9 cm hypodense lesion of the left adnexa, likely an ovarian cyst. ABDOMEN and PELVIS: INTRAPERITONEAL SPACE: Unremarkable. No free air. No significant fluid collection. BONES/JOINTS: No acute fracture. No dislocation. SOFT TISSUES: Umbilical hernia containing fat. VASCULATURE: Unremarkable. No abdominal aortic aneurysm. LYMPH NODES: Unremarkable. No enlarged lymph nodes. CT/Abdomen/Pelvis without Cont IMPRESSION: 1. Hepatomegaly with fatty infiltration. 2. Umbilical hernia containing fat. 3. No obstructive uropathy. 4. Fecal retention in the colon consistent with constipation. Reading Location: [facility] CC: FREDY Austin; Dr. Ravin Hill DO 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: Signed Normal [facility] CBC W/Diff, Automatedon 06-09 Absolute Lymph 3.93 X10 3/uL Normal 0.83-4.51 [facility] Comment on above: Performed By: #### L 100.0100, L500.4050, L501.2450 #### [facility] [address] [place], [address] Absolute Neut 8.3 X10 3/uL High 2.0-7.7 [facility] Comment on above: Performed By: #### L 100.0100, L500.4050, L501.2450 #### [facility] [address] [place], [address] Basophils/100 WBC (Bld) 0.9 % Normal 0-1 [facility] Comment on above: Performed By: #### L 100.0100, L500.4050, L501.2450 #### [facility] [address] [place], [address] Eosinophils/100 WBC (Bld) 2.1 % Normal 0-5 [facility] Comment on above: Performed By: #### L 100.0100, L500.4050, L501.2450 #### [facility] [address] [place], [address] Erythrocyte distribution width (RBC) [Ratio] 12.2 % Normal 11.6-14.6 [facility] Comment on above: Performed By: #### L 100.0100, L500.4050, L501.2450 #### [facility] [address] [place], [address] Hematocrit (Bld) [Volume fraction] 41.5 % Normal 37-47 [facility] Comment on above: Performed By: #### L 100.0100, L500.4050, L501.2450 #### [facility] [address] [place], [address] Hemoglobin (Bld) [Mass/Vol] 14.4 g/dL Normal 12.0-15.0 [facility] Comment on above: Performed By: #### L 100.0100, L500.4050, L501.2450 #### [facility] [address] [place], [address] IG% 0.400 Normal 0.0-0.9 [facility] Comment on above: Result Comment: IG% - Immature Granulocytes (promyelocytes, myelocytes and metamyelocytes) > 1% indicates that a LEFT SHIFT is Present. Performed By: #### L 100.0100, L500.4050, L501.2450 #### [facility] [address] [place], [address] Lymphocytes/100 WBC (Bld) 28.9 % Normal 19-41 [facility] Comment on above: Performed By: #### L 100.0100, L500.4050, L501.2450 #### [facility] [address] [place], [address] MCH (RBC) [Entitic mass] 30.1 pg Normal 27.0-32.0 [facility] Comment on above: Performed By: #### L 100.0100, L500.4050, L501.2450 #### [facility] [address] [place], [address] MCHC (RBC) [Mass/Vol] 34.7 g/dL Normal 32-36 [facility] Comment on above: Performed By: #### L 100.0100, L500.4050, L501.2450 #### [facility] [address] [place], [address] MCV (RBC) [Entitic vol] 86.6 fL Normal 81-99 [facility] Comment on above: Performed By: #### L 100.0100, L500.4050, L501.2450 #### [facility] [address] [place], [address] Monocytes/100 WBC (Bld) 6.8 % Normal 0-10 [facility] Comment on above: Performed By: #### L 100.0100, L500.4050, L501.2450 #### [facility] [address] [place], [address] Neutrophils/100 WBC (Bld) 60.9 % Normal 47-70 [facility] Comment on above: Performed By: #### L 100.0100, L500.4050, L501.2450 #### [facility] [address] [place], [address] Nucleated RBC (Bld) [#/Vol] 0 10*3/uL Normal 0-5 [facility] Comment on above: Performed By: #### L 100.0100, L500.4050, L501.2450 #### [facility] [address] [place], [address] Platelet mean volume (Bld) [Entitic vol] 11.3 fL Normal 6.2-12.0 [facility] Comment on above: Performed By: #### L 100.0100, L500.4050, L501.2450 #### [facility] [address] [place], [address] Platelets (Bld) [#/Vol] 347 10*3/uL Normal 150-450 [facility] Comment on above: Performed By: #### L 100.0100, L500.4050, L501.2450 #### [facility] [address] [place], [address] RBC (Bld) [#/Vol] 4.79 10*6/uL Normal 4.2-5.4 [facility] Comment on above: Performed By: #### L 100.0100, L500.4050, L501.2450 #### [facility] [address] [place], [address] RDW SD 39.2 fl Normal 35.1-43.9 [facility] Comment on above: Performed By: #### L 100.0100, L500.4050, L501.2450 #### [facility] [address] [place], [address] WBC (Bld) [#/Vol] 13.6 10*3/uL High 4.4-11.0 [facility] Comment on above: Performed By: #### L 100.0100, L500.4050, L501.2450 #### [facility] [address] [place], [address] Comprehensive Metabolic Prof mson 06-21-2024 Albumin [Mass/Vol] 4.3 g/dL Normal 3.5-5.0 [facility] Comment on above: Performed By: #### L 100.0100, L500.4050, L501.2450 #### [facility] [address] [place], [address] Albumin/Globulin [Mass ratio] 1.6 {ratio} Normal 0.9-2.4 [facility] Comment on above: Performed By: #### L 100.0100, L500.4050, L501.2450 #### [facility] [address] [place], [address] ALK PHOS 48 U/L Normal 35-104 [facility] Comment on above: Performed By: #### L 100.0100, L500.4050, L501.2450 #### [facility] [address] [place], [address] ALT [Catalytic activity/Vol] 14 U/L Normal <=34 [facility] Comment on above: Performed By: #### L 100.0100, L500.4050, L501.2450 #### [facility] [address] [place], [address] AST [Catalytic activity/Vol] 17 U/L Normal <=31 [facility] Comment on above: Performed By: #### L 100.0100, L500.4050, L501.2450 #### [facility] [address] [place], [address] Bilirubin [Mass/Vol] 0.37 mg/dL Normal 0.00-1.30 [facility] Comment on above: Performed By: #### L 100.0100, L500.4050, L501.2450 #### [facility] [address] [place], [address] BUN/CRE 13.2 RATIO Normal 10-20 [facility] Comment on above: Performed By: #### L 100.0100, L500.4050, L501.2450 #### [facility] [address] [place], [address] Calcium [Mass/Vol] 9.0 mg/dL Normal 7.6-11.0 [facility] Comment on above: Performed By: #### L 100.0100, L500.4050, L501.2450 #### [facility] [address] [place], [address] Chloride [Moles/Vol] 104 mmol/L Normal 98-108 [facility] Comment on above: Performed By: #### L 100.0100, L500.4050, L501.2450 #### [facility] [address] [place], [address] CO2 [Moles/Vol] 20.9 mmol/L Low 21.0-32.0 [facility] Comment on above: Performed By: #### L 100.0100, L500.4050, L501.2450 #### [facility] [address] [place], [address] Creatinine [Mass/Vol] 1.11 mg/dL Normal 0.70-1.20 [facility] Comment on above: Performed By: #### L 100.0100, L500.4050, L501.2450 #### [facility] [address] [place], [address] ECRCL 77.73 ml/min Normal 50-250 [facility] Comment on above: Performed By: #### L 100.0100, L500.4050, L501.2450 #### [facility] [address] [place], [address] GAP 15 Normal 5-15 [facility] Comment on above: Performed By: #### L 100.0100, L500.4050, L501.2450 #### [facility] [address] [place], [address] GFR/1.73 sq M.predicted among non-blacks MDRD (S/P/Bld) [Vol rate/Area] 64 mL/min/{1.73_m2} Normal >60 [facility] Comment on above: Result Comment: mL/m in/1.73m2 CKD-EPI Creatinine Equation (2020) Performed By: #### L 100.0100, L500.4050, L501.2450 #### [facility] [address] [place], [address] Globulin (S) [Mass/Vol] 2.7 g/dL Normal 2.2-4.2 [facility] Comment on above: Performed By: #### L 100.0100, L500.4050, L501.2450 #### [facility] [address] [place], [address] Glucose [Mass/Vol] 118 mg/dL High 70-99 [facility] Comment on above: Performed By: #### L 100.0100, L500.4050, L501.2450 #### [facility] [address] [place], [address] Potassium [Moles/Vol] 3.8 mmol/L Normal 3.3-5.1 [facility] Comment on above: Performed By: #### L 100.0100, L500.4050, L501.2450 #### [facility] [address] [place], [address] Sodium [Moles/Vol] 140 mmol/L Normal 133-145 [facility] Comment on above: Performed By: #### L 100.0100, L500.4050, L501.2450 #### [facility] [address] [place], [address] T PROT 7.1 g/dL Normal 5.9-8.4 [facility] Comment on above: Performed By: #### L 100.0100, L500.4050, L501.2450 #### [facility] [address] [place], [address] Urea nitrogen [Mass/Vol] 15 mg/dL Normal 4-19 [facility] Comment on above: Performed By: #### L 100.0100, L500.4050, L501.2450 #### [facility] [address] [place], [address] Emergency Department Summary on 06-21-2024 Emergency Department Summary [facility] Medical Records Department [address] [place] [address] Emergency Department Summary 06/21/24 MR#: [id number] Acct: [id number] Name: ISABEL VILLEDA Rep #: [id number] : 1985 38 From: [place] DO PCP: Aviva Austin NP-C Status:DEP ER Location: ED HPI History of Present Illness Chief Complaint: Flank Pain Informant: patient Onset/Context/Timing Onset: Days (5) Context: Sudden Onset Timing: Continuous Quality: Sharp Location: Left flank Worsened by: Nothing Relieved by: Nothing Narrative Narrative: Patient presents with left flank pain that began 5 days ago. Patient states it came on again earlier this morning. Patient admits to some urinary urgency but denies any dysuria or hematuria. Patient describes her pain as sharp. Patient states nothing makes it better and nothing makes it worse. Patient states she was seen at another emergency department 3 days ago and had a CAT scan which did not show anything. Patient admits to some subjective chills but denies any fevers. Patient admits to some nausea and vomiting. Prior similar symptoms: Yes PFSH PFSH Medical History Cellulitis of right thigh Normal stress echocardiogram Acute sinusitis, unspecified Urinary tract infection with hematuria Radiculopathy Chronic back pain Preventative health care Anterior neck pain Other acute postprocedural pain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 tubes, and devices: None. Lungs and pleura: No consolidation. No pleural effusion. No pneumothorax. Cardiomediastinal silhouette: Normal cardiomediastinal silhouette. Bones and soft tissues: Unremarkable. IMPRESSION IMPRESSION: No acute radiographic abnormality. 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: [employer] Transcribe Date/Time: May 24 2024 9:38A Dictated by : YON CONTRERAS DO This examination was interpreted and the report reviewed and electronically signed by: YON CONTRERAS DO on May 24 2024 9:39AM [facility] Radiology Study observation (narrative) [facility] XR Chest PA and LateralOrder ed By: [facility] Provider on 05-24-2024 [facility] MA MAMMOGRAM DIAGNOSTIC BILA TERAL W/TOMOon 05-23-2024 MA MAMMOGRAM DIAGNOSTIC BILATERAL W/DELONTE ORIGINAL FROM: MANDEEP HARO [address] [place], [place] [address] PROCEDURE FOR: ISABEL KateNelly VILLEDA [address] [place] [address] Home: PID#: [id number] Exam#: [id number] : 1985 Age: 38 TO: 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 2D standard and 3D tomosynthesis combination imaging performed. Current study was also evaluated with a Computer Aided Detection (CAD) system. COMPARISON: June 20, 2023, June 09, 2023 HISTORY: ORDERING SYSTEM PROVIDED HISTORY: Reason for Exam: Breast Cancer Screening FINDINGS: BREAST DENSITY: The breasts are heterogeneously dense, which may obscure small masses. In the superior aspect of the right breast at posterior depth on the MLO view, there is a 1.6 cm asymmetry. In the upper central and central aspect of the right breast at anterior to middle depth, there is a 5.8 cm focal asymmetry. In the central aspect of the right breast at anterior depth, there is a 1 cm group of punctate calcifications. In the medial aspect of the left breast middle depth on the CC view, there is a 4 cm asymmetry. In the central aspect of the left breast at middle depth, there is a stable 0.5 cm group of coarse calcifications. No other significant masses, calcifications, or other findings. IMPRESSION: Group of punctate calcifications in the central aspect of the right breast at anterior depth. Right breast stereotactic biopsy is recommended. Asymmetry in the superior aspect of the right breast at posterior depth on the MLO view. Additional views with spot compression tomosynthesis views in the MLO projections along with a regular ML are recommended. If a mass is confirmed, an ultrasound will be recommended. Focal asymmetry in the upper central and central aspect of the right breast at anterior to middle depth. Additional views with spot compression tomosynthesis views in the MLO and CC projections along with a regular ML are recommended. If a mass is confirmed, an ultrasound will be recommended. Asymmetry in the medial aspect of the left breast at middle depth on the CC view. Additional views with spot compression tomosynthesis views in the CC projections along with a regular ML are recommended. If a mass is confirmed, an ultrasound will be recommended. Stable group of coarse calcifications in the central aspect of the left breast at middle depth, probably benign. Follow-up left diagnostic mammogram in 6 months is recommended. BIRADS: BI-RADS: 0: Incomplete: Need Additional Imaging Evaluation RECALL: immediate RECALL TYPE: Mammo+US LETTER SENT: Abnormal-Needs additional work up BI-RADS 0 Interpreted by: Alison Diego Preliminary Report By: Alison Diego Electronically signed By Alison Diego Dictated Date: 05/23/2024 8:45:36 AM Prelim Date: 05/23/2024 8:56:14 AM Sign Date: 05/23/2024 8:56:14 AM Ordering Provider: AVIVA AUSTIN CLINICAL: BILATERAL CALCIFICATIONS F/U. MAMMOGRAPHIC ASYMMETRY RIGHT BREAST F/U. ANNUAL SCREENING ALSO NEEDED. copy to: LIANNE BOWMAN MD, ph: [phone] [employer] Operator: LIANNE MEJÍA RT(R)(CT) letter sent: Abnormal-Needs additional work up BI-RADS 0 Mammogram BI-RADS: 0 Indeterminate Normal [facility] .Auto Diffon 05-21-2024 Basophil, Absolute 0.1 10 3/mcL Normal 0.0-0.[address] [facility] Comment on above: Performed By: #### V IDH, CBC, FT4, TSH, ADIFF, ANEU, A1C, SAROJ, CMP, LIPID, GFR, LIP #### [facility] [address] [place], [place] [address] #### FOL #### [facility] [address] [place] [address] Basophils/100 WBC (Bld) 1.2 % Normal 0.0-2.5 [facility] Comment on above: Performed By: #### V IDH, CBC, FT4, TSH, ADIFF, ANEU, A1C, SAROJ, CMP, LIPID, GFR, LIP #### [address] [address] #### FOL #### [address] [address] Eosinophil, Absolute 0.2 10 3/mcL Normal 0.0-0.7 [facility] Comment on above: Performed By: #### V IDH, CBC, FT4, TSH, ADIFF, ANEU, A1C, SAROJ, CMP, LIPID, GFR, LIP #### [address] [address] #### FOL #### [address] [address] Eosinophils/100 WBC (Bld) 1.9 % Normal 0.0-7.0 [facility] Comment on above: Performed By: #### V IDH, CBC, FT4, TSH, ADIFF, ANEU, A1C, SAROJ, CMP, LIPID, GFR, LIP #### [address] [address] #### FOL #### [address] [address] Lymphocyte, Absolute 3.3 10 3/mcL Normal 0.9-4.3 [facility] Comment on above: Performed By: #### V IDH, CBC, FT4, TSH, ADIFF, ANEU, A1C, SAROJ, CMP, LIPID, GFR, LIP #### [address] [address] #### FOL #### [address] [address] Lymphocytes/100 WBC (Bld) 34.7 % Normal 20.0-40.0 [facility] Comment on above: Performed By: #### V IDH, CBC, FT4, TSH, ADIFF, ANEU, A1C, SAROJ, CMP, LIPID, GFR, LIP #### [address] [address] #### FOL #### [address] [address] Monocyte, Absolute 0.7 10 3/mcL Normal 0.1-1.[address] [facility] Comment on above: Performed By: #### V IDH, CBC, FT4, TSH, ADIFF, ANEU, A1C, SAROJ, CMP, LIPID, GFR, LIP #### [address] [address] #### FOL #### [address] [address] Monocytes/100 WBC (Bld) 7.4 % Normal 2.0-13.0 [facility] Comment on above: Performed By: #### V IDH, CBC, FT4, TSH, ADIFF, ANEU, A1C, SAROJ, CMP, LIPID, GFR, LIP #### [address] [address] #### FOL #### [address] [address] Neutrophils/100 WBC (Bld) 54.8 % Normal 50.0-75.0 [facility] Comment on above: Performed By: #### V IDH, CBC, FT4, TSH, ADIFF, ANEU, A1C, SAROJ, CMP, LIPID, GFR, LIP #### [address] [address] #### FOL #### [address] [address] .GFRon 05-21-2024 Estimated Glomerular Filtration Rate 81 ml/min/1.73sqm Normal [facility] Comment on above: Result Comment: Stages of Chronic Kidney Disease (CKD) Stage Description eGFR(ml/min/1.73 sq.m.) CKD 1 Normal kidney function or >=90 normal kindney function with possible kidney damage (ex. Proteinuria) CKD 2 Kidney damage with mild loss 60-89 of kidney function CKD 3a Mild to moderate loss of kidney 45-59 function CKD 3b Moderate to severe loss of 30-44 of kindey function CKD 4 Severe loss of kidney function 15-29 CKD 5 Kidney failure <15 Note: (go live 2024) the eGFR calculation was updated to the 2020 CKD-EPI creatinine equation without a race factor to calculate the eGFR results. Performed By: #### V IDH, CBC, FT4, TSH, ADIFF, ANEU, A1C, SAROJ, CMP, LIPID, GFR, LIP ####[address] [address]#### FOL ####[address] [address] .NEUABSon 05-21-2024 Neutrophil, Absolute 5.2 10 3/mcL Normal 2.3-8.1 [facility] Comment on above: Performed By: #### V IDH, CBC, FT4, TSH, ADIFF, ANEU, A1C, SAROJ, CMP, LIPID, GFR, LIP #### [place] [address] #### FOL #### [place] [address] A1Con 05-21-2024 Glucose [Mass/Vol] 117 mg/dL Normal [facility] Comment on above: Result Comment: Lyla mated Average Glucose calculated by equation ((28.7xA1C)-46.7) Estimated average glucose (eAG) is a calculated value from Hemoglobin A1C and is development representative of the average blood glucose level in the last 2-3 month period. Normal range: less than 114 mg/dL Performed By: #### V IDH, CBC, FT4, TSH, ADIFF, ANEU, A1C, SAROJ, CMP, LIPID, GFR, LIP #### [place] [address] #### FOL #### [place] [address] HbA1c (Bld) [Mass fraction] 5.7 % Normal 4.3-6.4 [facility] Comment on above: Performed By: #### V IDH, CBC, FT4, TSH, ADIFF, ANEU, A1C, SAROJ, CMP, LIPID, GFR, LIP #### [address] [address] #### FOL #### [place] [address] AMYon 05-21-2024 Amylase [Catalytic activity/Vol] 53 U/L Normal 25-115 [facility] Comment on above: Performed By: #### V IDH, CBC, FT4, TSH, ADIFF, ANEU, A1C, SAROJ, CMP, LIPID, GFR, LIP #### [address] [address] #### FOL #### [address] [address] CBCon 05-21-2024 Erythrocyte distribution width (RBC) [Ratio] 12.8 % Normal 11.5-15.5 [facility] Comment on above: Performed By: #### V IDH, CBC, FT4, TSH, ADIFF, ANEU, A1C, SAROJ, CMP, LIPID, GFR, LIP #### [address] [address] #### FOL #### [address] [address] Hematocrit (Bld) [Volume fraction] 44.9 % Normal 34.0-46.0 [facility] Comment on above: Performed By: #### V IDH, CBC, FT4, TSH, ADIFF, ANEU, A1C, SAROJ, CMP, LIPID, GFR, LIP #### [address] [address] #### FOL #### [address] [address] Hgb 15.3 G/dL Normal 12.0-16.0 [facility] Comment on above: Performed By: #### V IDH, CBC, FT4, TSH, ADIFF, ANEU, A1C, SAROJ, CMP, LIPID, GFR, LIP #### [address] [address] #### FOL #### [address] [address] MCH (RBC) [Entitic mass] 30.4 pg Normal 27.0-33.0 [facility] Comment on above: Performed By: #### V IDH, CBC, FT4, TSH, ADIFF, ANEU, A1C, SAROJ, CMP, LIPID, GFR, LIP #### [address] [address] #### FOL #### [place] [address] MCHC 34.0 G/dL Normal 32.0-36.0 [facility] Comment on above: Performed By: #### V IDH, CBC, FT4, TSH, ADIFF, ANEU, A1C, SAROJ, CMP, LIPID, GFR, LIP #### [place] [address] #### FOL #### [place] [address] MCV (RBC) [Entitic vol] 89.4 fL Normal 80.0-99.0 [facility] Comment on above: Performed By: #### V IDH, CBC, FT4, TSH, ADIFF, ANEU, A1C, SAROJ, CMP, LIPID, GFR, LIP #### [place] [address] #### FOL #### [place] [address] Platelet 324 10 3/mcL Normal 150-450 [facility] Comment on above: Performed By: #### V IDH, CBC, FT4, TSH, ADIFF, ANEU, A1C, SAROJ, CMP, LIPID, GFR, LIP #### [place] [address] #### FOL #### [place] [address] Platelet mean volume (Bld) [Entitic vol] 9.3 fL Normal 6.6-10.5 [facility] Comment on above: Performed By: #### V IDH, CBC, FT4, TSH, ADIFF, ANEU, A1C, SAROJ, CMP, LIPID, GFR, LIP #### [place] [address] #### FOL #### [place] [address] RBC 5.02 10 6/mcL Normal 4.10-5.30 [facility] Comment on above: Performed By: #### V IDH, CBC, FT4, TSH, ADIFF, ANEU, A1C, SAROJ, CMP, LIPID, GFR, LIP #### [address] [address] #### FOL #### [address] [address] WBC 9.6 10 3/mcL Normal 4.5-10.8 [facility] Comment on above: Performed By: #### V IDH, CBC, FT4, TSH, ADIFF, ANEU, A1C, SAROJ, CMP, LIPID, GFR, LIP #### [address] [address] #### FOL #### [place] [address] CMPon 05-21-2024 Albumin Level 4.2 G/dL Normal 3.5-5.0 [facility] Comment on above: Performed By: #### V IDH, CBC, FT4, TSH, ADIFF, ANEU, A1C, SAROJ, CMP, LIPID, GFR, LIP ####[place] [address]#### FOL ####[place] [address] Albumin/Globulin [Mass ratio] 1.3 {ratio} Normal 1.1-2.5 [facility] Comment on above: Performed By: #### V IDH, CBC, FT4, TSH, ADIFF, ANEU, A1C, SAROJ, CMP, LIPID, GFR, LIP ####[place] [address]#### FOL ####[address] [address] ALP [Catalytic activity/Vol] 54 U/L Normal 40-135 [facility] Comment on above: Performed By: #### V IDH, CBC, FT4, TSH, ADIFF, ANEU, A1C, SAROJ, CMP, LIPID, GFR, LIP ####[place] [address]#### FOL ####[place] [address] ALT [Catalytic activity/Vol] 24 U/L Normal 14-59 [facility] Comment on above: Performed By: #### V IDH, CBC, FT4, TSH, ADIFF, ANEU, A1C, SAROJ, CMP, LIPID, GFR, LIP ####[place] [address]#### FOL ####[address] [address] AST [Catalytic activity/Vol] 16 U/L Normal 10-40 [facility] Comment on above: Performed By: #### V IDH, CBC, FT4, TSH, ADIFF, ANEU, A1C, SAROJ, CMP, LIPID, GFR, LIP ####[place] [address]#### FOL ####[place] [address] Bili Total 0.2 mg/dL Normal 0.2-1.0 [facility] Comment on above: Result Comment: Use of this assay is not recommended for patients undergoing treatment with eltrombopag due to the potential for falsely elevated results. Performed By: #### V IDH, CBC, FT4, TSH, ADIFF, ANEU, A1C, SAROJ, CMP, LIPID, GFR, LIP ####[place] [address]#### FOL ####[place] [address] BUN/Creatinine Ratio 12 ratio Normal 7-[address] [facility] Comment on above: Performed By: #### V IDH, CBC, FT4, TSH, ADIFF, ANEU, A1C, SAROJ, CMP, LIPID, GFR, LIP ####[place] [address]#### FOL ####[place] [address] Calcium [Mass/Vol] 9.2 mg/dL Normal 8.4-10.2 [facility] Comment on above: Performed By: #### V IDH, CBC, FT4, TSH, ADIFF, ANEU, A1C, SAROJ, CMP, LIPID, GFR, LIP ####[place] [id number]#### FOL ####[address] [address] Chloride [Moles/Vol] 103 mmol/L Normal 98-[address] [facility] Comment on above: Performed By: #### V IDH, CBC, FT4, TSH, ADIFF, ANEU, A1C, SAROJ, CMP, LIPID, GFR, LIP ####[place] [address]#### FOL ####[place] [address] CO2 [Moles/Vol] 32 mmol/L High 22-29 [facility] Comment on above: Performed By: #### V IDH, CBC, FT4, TSH, ADIFF, ANEU, A1C, SAROJ, CMP, LIPID, GFR, LIP ####[place] [address]#### FOL ####[place] [address] Creatinine [Mass/Vol] 0.92 mg/dL Normal 0.55-1.02 [facility] Comment on above: Result Comment: Test ing performed on Siemens Dimension EXL analyzer using a modified kinetic Emmanuel technique. Performed By: #### V IDH, CBC, FT4, TSH, ADIFF, ANEU, A1C, SAROJ, CMP, LIPID, GFR, LIP ####[place] [address]#### FOL ####[place] [address] Electrolyte Balance 6.0 mEq/L Normal 4.0-15.0 [facility] [place] Comment on above: Performed By: #### V IDH, CBC, FT4, TSH, ADIFF, ANEU, A1C, SAROJ, CMP, LIPID, GFR, LIP ####[place] [address]#### FOL ####[place] [address] Globulin 3.3 G/dL Normal 1.5-3.8 [facility] Comment on above: Performed By: #### V IDH, CBC, FT4, TSH, ADIFF, ANEU, A1C, SAROJ, CMP, LIPID, GFR, LIP ####[address] [address]#### FOL ####[address] [address] Glucose [Mass/Vol] 91 mg/dL Normal 70-105 [facility] Comment on above: Performed By: #### V IDH, CBC, FT4, TSH, ADIFF, ANEU, A1C, SAROJ, CMP, LIPID, GFR, LIP ####[address] [address]#### FOL ####[address] [address] Potassium [Moles/Vol] 4.0 mmol/L Normal 3.5-5.1 [facility] Comment on above: Performed By: #### V IDH, CBC, FT4, TSH, ADIFF, ANEU, A1C, SAROJ, CMP, LIPID, GFR, LIP ####[address] [address]#### FOL ####[address] [address] Sodium [Moles/Vol] 141 mmol/L Normal 136-145 [facility] Comment on above: Performed By: #### V IDH, CBC, FT4, TSH, ADIFF, ANEU, A1C, SAROJ, CMP, LIPID, GFR, LIP ####[address] [address]#### FOL ####[address] [address] Total Protein 7.5 G/dL Normal 6.4-8.2 [facility] Comment on above: Performed By: #### V IDH, CBC, FT4, TSH, ADIFF, ANEU, A1C, SAROJ, CMP, LIPID, GFR, LIP ####[address] [address]#### FOL ####[address] [address] Urea nitrogen [Mass/Vol] 11 mg/dL Normal 7-18 [facility] Comment on above: Performed By: #### V IDH, CBC, FT4, TSH, ADIFF, ANEU, A1C, SAROJ, CMP, LIPID, GFR, LIP ####[address] [address]#### FOL ####[facility] [place] [address] FOLon 05-21-2024 Folate 11.95 ng/mL Normal 5.38-24.00 [facility] Comment on above: Performed By: #### V IDH, CBC, FT4, TSH, ADIFF, ANEU, A1C, SAROJ, CMP, LIPID, GFR, LIP ####[address] [address]#### FOL ####[place] [address] FT4on 05-21-2024 Free T4 [Mass/Vol] 1.31 ng/dL Normal 0.76-1.46 [facility] Comment on above: Performed By: #### V IDH, CBC, FT4, TSH, ADIFF, ANEU, A1C, SAROJ, CMP, LIPID, GFR, LIP #### [address] [address] #### FOL #### [place] [address] LABORATORYOrdered By: SYSTEM SYSTEM on 05-21-2024 25-hydroxyvitamin D3 [Mass/Vol] 34.1 ng/mL Invalid Interpretation Code AO ADM SS Comment on above: Interpretive Data: I nterpretive Values Based on Total 25(OH) Vitamin D: Deficient <20 ng/mL Insufficient 20 - <30 ng/mL Sufficient 30-100 ng/mL Albumin BCP dye [Mass/Vol] 4.2 G/dL Normal 3.5 - 5.0 G/dL AO ADM SS Albumin/Globulin [Mass ratio] 1.3 {ratio} Normal 1.1 - 2.5 ratio AO ADM SS ALP [Catalytic activity/Vol] 54 U/L Normal 40 - 135 U/L AO ADM SS ALT With P-5'-P [Catalytic activity/Vol] 24 U/L Normal 14 - 59 U/L AO ADM SS Amylase [Catalytic activity/Vol] 53 U/L Normal 25 - 115 U/L AO ADM SS AST With P-5'-P [Catalytic activity/Vol] 16 U/L Normal 10 - 40 U/L AO ADM SS Basophils (Bld) [#/Vol] 0.1 103/mcL Normal 0.0 - 0.2 10^3/mcL AO Workflow SS Basophils/100 WBC (Bld) 1.2 % Normal 0.0 - 2.5 % AO Workflow SS Bilirubin [Mass/Vol] 0.2 mg/dL Normal 0.2 - 1 .0 mg/dL AO ADM SS Comment on above: Interpretive Data: U se of this assay is not recommended for patients undergoing treatment with eltrombopag due to the potential for falsely elevated results. Calcium [Mass/Vol] 9.2 mg/dL Normal 8.4 - 10. 2 mg/dL AO ADM SS Chloride [Moles/Vol] 103 mmol/L Normal 98 - 10 7 mmol/L AO ADM SS CO2 [Moles/Vol] 32 mmol/L High 22 - 29 mmol/L AO ADM SS Creatinine [Mass/Vol] 0.92 mg/dL Normal 0.55 - 1.02 mg/dL AO ADM SS Comment on above: Interpretive Data: T esting performed on Siemens Dimension EXL analyzer using a modified kinetic Emmanuel technique. Electrolyte Balance 6.0 mEq/L Normal 4.0 - 15 .0 mEq/L AO ADM SS Eosinophil, Absolute 0.2 103/mcL Normal 0.0 - 0 .7 10^3/mcL AO Workflow SS Eosinophils/100 WBC (Bld) 1.9 % Normal 0.0 - 7.0 % AO Workflow SS Erythrocyte distribution width (RBC) [Ratio] 12.8 % Normal 11.5 - 15.5 % AO Workflow SS Estimated Glomerular Filtration Rate 81 ml/min/1.73sqm Invalid Interpretation Code AO Chemistry S Comment on above: Interpretive Data: Stages of Chronic Kidney Disease (CKD) Stage Description eGFR(ml/min/1.73 sq.m.) CKD 1 Normal kidney function or >=90 normal kindney function with possible kidney damage (ex. Proteinuria) CKD 2 Kidney damage with mild loss 60-89 of kidney function CKD 3a Mild to moderate loss of kidney 45-59 function CKD 3b Moderate to severe loss of 30-44 of kindey function CKD 4 Severe loss of kidney function 15-29 CKD 5 Kidney failure <15 Note: (go live 2024) the eGFR calculation was updated to the 2020 CKD-EPI creatinine equation without a race factor to calculate the eGFR results. Folate [Mass/Vol] 11.95 ng/mL Normal 5.38 - 24. 00 ng/mL AH ADM SS Free T4 [Mass/Vol] 1.31 ng/dL Normal 0.76 - 1. 46 ng/dL AO ADM SS Globulin 3.3 G/dL Normal 1.5 - 3.8 G/dL AO ADM SS Glucose [Mass/Vol] 117 mg/dL Invalid Interpretation Code AO Chemistry S Comment on above: Interpretive Data: E stimated average glucose (eAG) is a calculated value from Hemoglobin A1C and is development representative of the average blood glucose level in the last 2-3 month period. Normal range: less than 114 mg/dL Glucose [Mass/Vol] 91 mg/dL Normal 70 - 105 mg/dL AO ADM SS HbA1c (Bld) [Mass fraction] 5.7 % Normal 4.3 - 6.4 % AO ADM SS Hematocrit (Bld) [Volume fraction] 44.9 % Normal 34.0 - 46.0 % AO Workflow SS Hemoglobin (Bld) [Mass/Vol] 15.3 G/dL Normal 12.0 - 16.0 G/dL AO Workflow SS Lipase [Catalytic activity/Vol] 31 U/L Normal 16 - 77 U/L AO ADM SS Lymphocytes (Bld) [#/Vol] 3.3 103/mcL Normal 0.9 - 4.3 10^3/mcL AO Workflow SS Lymphocytes/100 WBC (Bld) 34.7 % Normal 20.0 - 40.0 % AO Workflow SS MCH (RBC) [Entitic mass] 30.4 pg Normal 27.0 - 33.0 pg AO Workflow SS MCHC 34.0 G/dL Normal 32.0 - 36.0 G/dL AO Workflow SS MCV (RBC) [Entitic vol] 89.4 fL Normal 80.0 - 99.0 fL AO Workflow SS Monocytes (Bld) [#/Vol] 0.7 103/mcL Normal 0.1 - 1.4 10^3/mcL AO Workflow SS Monocytes/100 WBC (Bld) 7.4 % Normal 2.0 - 13.0 % AO Workflow SS Neutrophils (Bld) [#/Vol] 5.2 103/mcL Normal 2.3 - 8.1 10^3/mcL AO Workflow SS Neutrophils/100 WBC (Bld) 54.8 % Normal 50.0 - 75.0 % AO Workflow SS Platelet mean volume (Bld) [Entitic vol] 9.3 fL Normal 6.6 - 10.5 fL AO Workflow SS Platelets (Bld) [#/Vol] 324 103/mcL Normal 150 - 450 10^3/mcL AO Workflow SS Potassium [Moles/Vol] 4.0 mmol/L Normal 3.5 - 5.1 mmol/L AO ADM SS Protein [Mass/Vol] 7.5 G/dL Normal 6.4 - 8.2 G/dL AO ADM SS RBC (Bld) [#/Vol] 5.02 106/mcL Normal 4.10 - 5.3 0 10^6/mcL AO Workflow SS Sodium [Moles/Vol] 141 mmol/L Normal 136 - 145 mmol/L AO ADM SS TSH Qn 1.41 m[IU]/L Normal 0.36 - 3.74 mcIU/mL AO ADM SS Urea nitrogen [Mass/Vol] 11 mg/dL Normal 7 - 18 mg/dL AO ADM SS Urea nitrogen/Creatinine [Mass ratio] 12 ratio Normal 7 - 27 ratio AO ADM SS WBC (Bld) [#/Vol] 9.6 103/mcL Normal 4.5 - 10.8 10^3/mcL AO Workflow SS LABORATORYOrdered By: Kalpana Gallardo on 05-21-2024 Cholesterol [Mass/Vol] 145 mg/dL Normal 0 - 2 00 mg/dL AO ADM SS Comment on above: Interpretive Data: C holesterol Reference Interval: Less than 200 Desirable 200-239 Borderline high risk 240 and above High risk Cholesterol in HDL [Mass/Vol] 50 mg/dL Normal 40 - 60 mg/dL AO ADM SS Cholesterol in LDL [Mass/Vol] 88 mg/dL Normal 0 - 130 mg/dL AO ADM SS Triglyceride [Mass/Vol] 36 mg/dL Normal 0 - 150 mg/dL AO ADM SS Comment on above: Interpretive Data: T riglyceride Reference Interval: Less than 150 Normal 150-199 Borderline high risk 200-499 High risk 500 or higher Very high risk LIPon 05-21-2024 Lipase Level 31 U/L Normal 16-77 [facility] Comment on above: Performed By: #### V IDH, CBC, FT4, TSH, ADIFF, ANEU, A1C, SAROJ, CMP, LIPID, GFR, LIP #### [address] [address] #### FOL #### [address] [address] LIPIDon 05-21-2024 Cholesterol [Mass/Vol] 145 mg/dL Normal 0-200 [facility] Comment on above: Result Comment: Chol esterol Reference Interval: Less than 200 Desirable 200-239 Borderline high risk 240 and above High risk Performed By: #### V IDH, CBC, FT4, TSH, ADIFF, ANEU, A1C, SAROJ, CMP, LIPID, GFR, LIP ####[address] [address]#### FOL ####[place] [address] Cholesterol in HDL [Mass/Vol] 50 mg/dL Normal 40-60 [facility] Comment on above: Performed By: #### V IDH, CBC, FT4, TSH, ADIFF, ANEU, A1C, SAROJ, CMP, LIPID, GFR, LIP ####[address] [address]#### FOL ####[address] [address] Cholesterol in LDL [Mass/Vol] 88 mg/dL Normal 0-130 [facility] Comment on above: Performed By: #### V IDH, CBC, FT4, TSH, ADIFF, ANEU, A1C, SAROJ, CMP, LIPID, GFR, LIP ####[address] [address]#### FOL ####[address] [address] Triglyceride [Mass/Vol] 36 mg/dL Normal 0-150 [facility] Comment on above: Result Comment: Trig lyceride Reference Interval: Less than 150 Normal 150-199 Borderline high risk 200-499 High risk 500 or higher Very high risk Performed By: #### V IDH, CBC, FT4, TSH, ADIFF, ANEU, A1C, SRAOJ, CMP, LIPID, GFR, LIP ####[place] [address]#### FOL ####[place] [address] TSHon 05-21-2024 TSH Qn 1.41 m[IU]/L Normal 0.36-3.74 [facility] Comment on above: Performed By: #### V IDH, CBC, FT4, TSH, ADIFF, ANEU, A1C, SAROJ, CMP, LIPID, GFR, LIP #### [place] [address] #### FOL #### [place] [address] VIDHon 05-21-2024 Vit. D 25-Hydroxy 34.1 ng/mL Normal [facility] Comment on above: Result Comment: Inte rpretive Values Based on Total 25(OH) Vitamin D: Deficient <20 ng/mL Insufficient 20 - <30 ng/mL Sufficient 30-100 ng/mL Performed By: #### V IDH, CBC, FT4, TSH, ADIFF, ANEU, A1C, SAROJ, CMP, LIPID, GFR, LIP ####[place] [address]#### FOL ####[place] [address] Colonoscopy Reporton 025 Colonoscopy Report [facility] Medical Records Department [address] [place] [address] Colonoscopy Report MR#: [id number] Acct: [id number] Name: ISABEL VILLEDA Rep #: [id number] : 1985 38 From: Jules Friend DO PCP: Aviva Austin SAMPLE CARRIER-C Status:[facility] Patient Name: Isabel Villeda Procedure Date: 05/11/2024 12:34 PM Date of : 1985 Age: 38 Procedure: Colonoscopy Indications: Epigastric abdominal pain, Abdominal pain in the left lower quadrant, Abdominal pain in the right lower quadrant, Abdominal pain in the right upper quadrant Providers: Jules Rene DO Referring MD: Aviva Austin Medicines: Monitored Anesthesia Care Patient Profile: This is a 38 year old female. Refer to note in patient chart for documentation of history and physical. Last Colonoscopy: within the past 3 years. Complications: No immediate complications. Procedure: Pre-Anesthesia Assessment: - Prior to the procedure, a History and Physical was performed, and patient medications and allergies were reviewed. The patient is competent. The risks and benefits of the procedure and the sedation options and risks were discussed with the patient. All questions were answered and informed consent was obtained. Patient identification and proposed procedure were verified by the physician in the pre-procedure area. Mental Status Examination: alert and oriented. Airway Examination: normal oropharyngeal airway and neck mobility. Respiratory Examination: clear to auscultation. CV Examination: normal. ASA Grade Assessment: II - A patient with mild systemic disease. After reviewing the risks and benefits, the patient was deemed in satisfactory condition to undergo the procedure. The anesthesia plan was to use monitored anesthesia care (MAC). Immediately prior to administration of medications, the patient was re-assessed for adequacy to receive sedatives. The heart rate, respiratory rate, oxygen saturations, blood pressure, adequacy of pulmonary ventilation, and response to care were monitored throughout the procedure. The physical status of the patient was re-assessed after the procedure. After I obtained informed consent, the scope was passed under direct vision. Throughout the procedure, the patient's blood pressure, pulse, and oxygen saturations were monitored continuously. The Colonoscope was introduced through the anus and advanced to the terminal ileum. The colonoscopy was performed without difficulty. The patient tolerated the procedure well. The quality of the bowel preparation was adequate. The terminal ileum, ileocecal valve, appendiceal orifice, and rectum were photographed. Scope In: 12:36:53 PM Scope Withdrawal Time 0 hours 7 minutes 25 seconds Scope Out: 12:46:49 PM Total Procedure Duration Time 0 hours 9 minutes 56 seconds Findings: The perianal and digital rectal examinations were normal. An area of moderately congested mucosa was found in the entire colon. Biopsies were taken with a cold forceps for histology. Verification of patient identification for the specimen was done. Estimated blood loss was minimal. A patchy area of the terminal ileum was congested. Biopsies were taken with a cold forceps for histology. Verification of patient identification for the specimen was done. Estimated blood loss was minimal. Impression: - Congested mucosa in the entire examined colon. Biopsied. - Congested mucosa in the terminal ileum. Biopsied. Recommendation: - Discharge patient to home. - Resume previous diet. - Continue present medications. - Await pathology results. - Repeat colonoscopy is recommended for surveillance. The colonoscopy date will be determined after pathology results from today's exam become available for review. Procedure Code(s): --- Professional --- 00812, Colonoscopy, flexible; with biopsy, single or multiple CPT copyright 2021 [employer]. All rights reserved. The codes documented in this report are preliminary and upon post anesthesia care unit nurse review may be revised to meet current compliance requirements. Jules Rene DO 05/11/2024 12:58:24 PM This report has been signed electronically. Number of Addenda: 0 Note Initiated On: 05/11/2024 12:34 PM 05/11/24 1258 Date Jules Rene DO Cosigner Signature: Date (if indicated) CC: SAMPLE CARRIER-C Aviva Austin; Jules Rene DO Date Dictated: 05/11/24 1234 Date Transcribed: 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: ARIN Signed Normal [facility] EGD Reporton 05-11-2024 EGD Report [facility] Medical Records Department [address] [place] [address] EGD Report MR#: [id number] Acct: [id number] Name: FELICITY VILLEDANHI Love Rep #: [id number] : 1985 38 From: Jules Rene DO PCP: FREDY Quiroz Status:[facility] Patient Name: Isabel Gallowayley Procedure Date: 05/11/2024 12:20 PM Date of : 1985 Age: 38 Procedure: Upper GI endoscopy Indications: Epigastric abdominal pain Providers: DO Jens Toney MD: Aviva Austin Medicines: Monitored Anesthesia Care Complications: No immediate complications. Procedure: Pre-Anesthesia Assessment: - Prior to the procedure, a History and Physical was performed, and patient medications and allergies were reviewed. The patient is competent. The risks and benefits of the procedure and the sedation options and risks were discussed with the patient. All questions were answered and informed consent was obtained. Patient identification and proposed procedure were verified by the physician in the pre-procedure area. Mental Status Examination: alert and oriented. Airway Examination: normal oropharyngeal airway and neck mobility. Respiratory Examination: clear to auscultation. CV Examination: normal. ASA Grade Assessment: II - A patient with mild systemic disease. After reviewing the risks and benefits, the patient was deemed in satisfactory condition to undergo the procedure. The anesthesia plan was to use monitored anesthesia care (MAC). Immediately prior to administration of medications, the patient was re-assessed for adequacy to receive sedatives. The heart rate, respiratory rate, oxygen saturations, blood pressure, adequacy of pulmonary ventilation, and response to care were monitored throughout the procedure. The physical status of the patient was re-assessed after the procedure. After obtaining informed consent, the endoscope was passed under direct vision. Throughout the procedure, the patient's blood pressure, pulse, and oxygen saturations were monitored continuously. The Colonoscope was introduced through the mouth, and advanced to the fourth part of the duodenum. Small bowel enteroscopy was deemed necessary. The upper GI endoscopy was accomplished without difficulty. The patient tolerated the procedure well. Scope In: 12:28:26 PM Scope Out: 12:34:08 PM Total Procedure Duration Time 0 hours 5 minutes 42 seconds Findings: LA Grade A (one or more mucosal breaks less than 5 mm, not extending between tops of 2 mucosal folds) esophagitis with no bleeding was found 36 to 40 cm from the incisors. Biopsies were taken with a cold forceps for histology. Verification of patient identification for the specimen was done. Estimated blood loss was minimal. A medium-sized hiatal hernia was present. Patchy mildly erythematous mucosa without bleeding was found in the gastric antrum. Biopsies were taken with a cold forceps for histology. Verification of patient identification for the specimen was done. Biopsies were taken with a cold forceps for Helicobacter pylori testing. Verification of patient identification for the specimen was done. Estimated blood loss was minimal. Localized mild inflammation was found in the duodenal bulb. Biopsies were taken with a cold forceps for histology. Verification of patient identification for the specimen was done. Estimated blood loss was minimal. Impression: - LA Grade A reflux esophagitis with no bleeding. Biopsied. - Medium-sized hiatal hernia. - Erythematous mucosa in the antrum. Biopsied. - Bile duodenitis. Biopsied. Recommendation: - Discharge patient to home. - Resume previous diet. - Continue present medications. - Await pathology results. Procedure Code(s): --- Professional --- 96751, Small intestinal endoscopy, enteroscopy beyond second portion of duodenum, not including ileum; with biopsy, single or multiple CPT copyright 2021 [employer]. All rights reserved. The codes documented in this report are preliminary and upon post anesthesia care unit nurse review may be revised to meet current compliance requirements. Jules Rene DO 05/11/2024 12:55:42 PM This report has been signed electronically. Number of Addenda: 0 Note Initiated On: 05/11/2024 12:20 PM 05/11/24 1255 Date Jules Rene DO Cosigner Signature: Date (if indicated) CC: FREDY Austin; Jules Rene DO Date Dictated: 05/11/24 1220 Date Transcribed: 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: ARIN Signed [facility] H Pylori (initial)on 025 H Pylori (initial) ----- Patient Age/Sex Location Account Attending Physician ISABEL VILLEDA 38/F EN [id number] Jules Rene DO Specimen: [id number] Received: 05/14/24 Status: NICOLE Mckeonmarquita Num: [id number] Spec Type: IMMUNO Subm Dr: Jules Rene DO PHYSICIAN INSTITUTION [place] [address] SPECIMEN INFORMATION: Tissue Source: B- Gastric body biopsy Clinical Info: Irritable bowel syndrome, gastric ulcer, dysphagia, unspecified, gastric intestinal metaplasia Specimen Number: [id number] CPT code: 15592 METHODOLOGY: Deparaffinized sections of prefer/formalin-fixed tissue or PAP/DQ stained slides are incubated with monoclonal/polyclonal antibodies/oligonucleotid e probes. Localization is made via biotin free immunoperoxidase method. Appropriate controls are performed and reacted as expected. Results on target cell population are indicated in the following table: RESULTS: ANTIBODY / CLONE RESULT Block B H Pylori (polyclonal) negative These tests were developed and their performance characteristics determined by [facility]. They may not have been cleared or approved by the U.S. Food and Drug Administration. The FDA has determined that such clearance or approval is not necessary. The above immunohistochemical/dualI SH markers are ordered and reviewed by the Pathologist. INTERPRETATION: B. Gastric body, biopsy: Negative for Helicobacter pylori organisms. 05/15/2024 Signed (signature on file) Dr. Danny Romero MD 05/15/24 1345 Normal [facility] Comment on above: Performed By: #### P H.PYLORI ####[facility] [id number] [facility] [place], [address] MR/POSTOP.ANE 05-11-2024 MR/POSTOP.[facility] Medical Records Department [address] [place] [address] Anesthesia Postop Eval I 05/11/24 1254 MR#: [id number] Acct: [id number] Name: ISABEL VILLEDA Rep #: [id number] : 1985 38 From: Evelin Patel PCP: FREDY Quiroz Status:REG [facility] Y Race: C Location: [place] [address] Anesthesia: Postop Eval I Current Vital Signs Temperature: 97.2 F Pulse Rate: 79 Blood Pressure: 110/87 Respiratory Rate: 18 Pulse Ox: 95 Assessment Airway patent: Yes Spontaneous unlabored respirations: Yes nausea: No Vomiting: No Anesthesia Complication: No Fluid Hydration Crystalloid volume administer (ml): 10 Total IV fluid infused: 10 Progress Note Anesthesia document: Postop Eval 1 completed: Yes 05/11/244 Date Evelin Blackwood Signature: Date CC: Signed Normal [facility] MR/[id number] 05-11-2024 MR/POSTOPAN2 [facility] Medical Records Department [address] [place] [address] Anesthesia Postop Eval II 05/11/24 1346 MR#: [id number] Acct: [id number] Name: ISABEL VILLEDA Rep #: [id number] : 1985 38 From: Evelin Patel PCP: Aviva Austin, SAMPLE CARRIER-C Status:DEP [facility] Y Race: C Location: EN Anesthesia Postop Eval I Sum Postop Eval Completion status Anesthesia document: Postop Eval 1 completed: Yes Anesthesia Postop Eval I Summary Anesthesia Postop Eval I Summary: Anesthesia Postop Eval I: Assessment Summary Airway patent Yes 05/11/24 12:54 PLANT AND INSTRUMENT ENGINEER.CSIR Spontaneous unlabored Yes 05/11/24 12:54 PLANT AND INSTRUMENT ENGINEER.CSIR respirations Mental status nausea No 05/11/24 12:54 PLANT AND INSTRUMENT ENGINEER.CSIR Vomiting No 05/11/24 12:54 PLANT AND INSTRUMENT ENGINEER.CSIR Anesthesia Postop Eval I: Fluid Summary Crystalloid volume administer 10 05/11/24 12:54 PLANT AND INSTRUMENT ENGINEER.CSIR (ml) Colloids volume administered ( ml) Blood Product volume administered (ml) Total IV fluid infused 10 05/11/24 12:54 PLANT AND INSTRUMENT ENGINEER.CSIR Anesthesia Postop Eval I: Summary Notes Anesthesia Complication No 05/11/24 12:54 PLANT AND INSTRUMENT ENGINEER.CSIR Anesthesia Complication Comment: Post-operative progress note Anesthesia: Postop Eval II Evaluation Mental status: Awake and Calm Pain Level: 0 nausea: No Vomiting: No 05/11/24 1346 Date Evelin Blackwood Signature: Date CC: Signed Normal [facility] Surgery Specimen Level Adrianne 05-11-2024 Surgery Specimen Level IV Patient Age/Sex Location Account Attending Physician ISABEL VILLEDA 38/F EN [id number] Jules Rene DO Specimen: [id number] Received: 05/11/24 Status: NICOLE Weber Num: [id number] Spec Type: EGD BIOPSY Dilan Dr: Jules Rene DO HEADER OPERATION: Colonoscopy with biopsy, EGD with biopsy PRE-OP DIAGNOSIS: Irritable bowel syndrome, gastric ulcer, dysphagia, unspecified, gastric intestinal metaplasia TISSUE SUBMITTED: A- Duodenum biopsy, B- Gastric body biopsy, C- Terminal ileum biopsy, D- Random colon biopsy MICROSCOPIC DIAGNOSIS A. Duodenum, biopsy: Fragments of duodenal mucosa, no pathologic diagnosis. B. Gastric body, biopsy: Mild gastritis. See microscopic description and comment. C. Terminal ileum, biopsy: A fragment of small intestinal mucosa, no pathologic diagnosis. D. Colon, random biopsy: Fragments of colonic mucosa, no pathologic diagnosis. SJ. 05/15/2024 COMMENT B. The results of immunohistochemistry for Helicobacter pylori will be reported separately ([id number]). MICROSCOPIC DESCRIPTION Slides are reviewed. B. The specimen shows fragments of gastric mucosa with chronic inflammatory cell infiltrates in the lamina propria consisting of lymphocytes and plasma cells, consistent with mild chronic gastritis. GROSS DESCRIPTION A. Received in fixative is one container labeled with the patient's name and designated Duodenum biopsy. The specimen consists of two irregular fragments of light whyte soft tissue that in aggregate measure 1.2 x 0.3 x 0.2 cm. The specimen is totally submitted in one cassette. B. Received in fixative is one container labeled with the patient's name and designated Gastric body biopsy. The specimen consists of two irregular fragments of light whyte soft tissue that in aggregate measure 0.9 x 0.3 x 0.2 cm. The specimen is totally submitted in one cassette. C. Received in fixative is one container labeled with the patient's name and designated Patient Age/Sex Location Account Attending Physician ISABEL VILLEDA/F EN [id number] Jules Rene DO Terminal ileum biopsy. The specimen consists of one irregular fragment of light whyte soft tissue that measures 0.9 x 0.3 x 0.2 cm. The specimen is totally submitted in one cassette. D. Received in fixative is one container labeled with the patient's name and designated Random colon biopsy. The specimen consists of multiple irregular fragments of light whyte soft tissue that in aggregate measure 2.3 x 0.3 x 0.2 cm. The specimen is totally submitted in one cassette. 05/14/2024 TC:3 CPT:69636a4 Patient Age/Sex Location Account Attending Physician ISABEL VILLEDA 38/F [place] [id number] Jules Rene DO Signed (signature on file) Dr. Danny Romero MD 05/15/24 1031 Normal [facility] Comment on above: Performed By: #### L 500.2500, L100.0500 #### [facility] [address] [place], [address] MR/Zeus 05-09-2024 [facility] Medical Records Department [address] [place] [address] PAT - Anesthesia 05/09/24 1416 MR#: [id number] Acct: [id number] Name: ISABEL VILLEDA Rep #: [id number] : 1985 38 From: Allyssa Lowe MD PCP: FREDY Quiroz Status:PRE [facility] Race: C Location: EN Pre-Assessment Diagnosis/Proposed Procedure Planned Operative Procedure(s): EGD, CSCOPE Anesthesia History 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 When Was Last Pacemaker Check QUESTION #4 FULL TEXT: You/Your Family Experience fever (hyperthermia) with Anesthesia Last Oral Intake Last Oral intake: Last Oral Intake NPO since Meds taken in AM with sips of water? 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 Female Yes 05/09/24 13:14 HX of Motion Sickness No 05/09/24 13:14 HX of N/V After Surgery No 05/09/24 13:14 Non-Smoker No 05/09/24 13:14 Duration of Surgery greater No 05/09/24 13:14 than 60 minutes Number of Risk Factors 1 05/09/24 13:14 PONV Score Low Risk 05/09/24 13:14 Height Weight Height Weight: Anesthesia: Height Weight Height 5 ft 9 in 01/29/24 08:47 Respiratory Assessment Respiratory Assessment - maintenance department technician: Respiratory Tract Infection Hx - maintenance department technician Hx Respiratory Tract Infection No 05/09/24 13:14 STOP Sleep Apnea STOP Sleep Apnea - maintenance department technician: STOP Sleep Apnea - maintenance department technician Hx Hypertension No 05/09/24 13:14 Hx Sleep Apnea No 05/09/24 13:14 CPAP No 05/09/24 13:14 BIPAP No 05/09/24 13:14 Do you snore loudly (louder No 05/09/24 13:14 than talking or can be heard Do you often feel tired/ No 05/09/24 13:14 fatigued/ sleepy during daytime? Has anyone observed you stop No 05/09/24 13:14 breathing during sleep? STOP Results Negative 05/09/24 13:14 QUESTION #5 FULL TEXT : Do you snore loudly (louder than talking or can be heard through closed doors)? 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 Specify any problems Hx of Preganancy in last 3 N/A 05/09/24 13:14 Months Nurse Filling Out Transfusion NBUCHER 05/09/24 13:14 Questions: Date: 05/09/24 05/09/24 13:14 Time: 13:15 05/09/24 13:14 Patient unable to answer at this time (ie. confused, unrespo /Reproduction History /Reproductive History - maintenance department technician: /Reproductive Hx- maintenance department technician Hx Now No 05/09/24 13:14 Gestational Age (in weeks): EDC: Hx Hx Para Hx Section SAB No 05/09/24 13:14 [facility] Medical History (Updated 05/09/24 @ 13:19 by Lupe Estrada) Cellulitis of right thigh Normal stress echocardiogram Acute sinusitis, unspecified Urinary tract infection with hematuria Radiculopathy Chronic back pain Preventative health care Anterior neck pain Other acute postprocedural pain Elevated lipase Low vitamin B12 level Low calcium levels History of stress test PTSD (post-traumatic stress disorder) Paresthesia Depression Anxiety Hypoglycemia Fatty liver Back pain Syncope History of hiatal hernia Smoker Shortness of breath on exertion Leg cramps History of pain when walking Cardiology follow-up encounter Chest pain Right groin pain Right ovarian cyst Urgency of urination Duodenal mass Epigastric pain Kidney stones Right lower quadrant pain Abnormal tumor markers Hepatomegaly Right renal stone Renal colic on right side Hist (more content not included)... Normal [facility] Celiac Disease Profileon ENDOMYSIAL IGA Negative Normal Negative [facility] Comment on above: Order Comment: Y Performed By: #### L 100.0100, L500.4050, L501.2450 #### [facility] [address] [place], [address] tTG IGA <2 Normal 0-3 [facility] Comment on above: Order Comment: Y Result Comment: Nega tive 0 - 3 Weak Positive 4 - 10 Positive >10 Tissue Transglutaminase (tTG) has been identified as the endomysial antigen. Studies have demonstr- ated that endomysial IgA antibodies have over 99% specificity for gluten sensitive enteropathy. Performed By: #### L 100.0100, L500.4050, L501.2450 #### [facility] [address] [place], [address] Gastrin, Serumon 05-04-2024 GASTRIN 143 pg/mL High 0-115 [facility] Comment on above: Order Comment: Y Result Comment: Siem ens Immulite 2000 Immunochemiluminometric assay (ICMA) Values obtained with different assay methods or kits cannot be used interchangeably. Results cannot be interpreted as absolute evidence of the presence or absence of malignant disease. Performed at: [facility] [address] [id number] [place]: Dwayne Johnson PhD, Phone: [phone] Performed at: [facility] [address] [id number] [place]: Yosvany Gonzalez MD, Phone: [phone] Performed By: #### L 100.0100, L500.4050, L501.2450 #### [facility] [address] [place], [address] TOBIAS + Protein Elect, Serumon 05-04-2024 Albumin [Mass/Vol] 4.0 g/dL Normal 2.9-4.4 [facility] Comment on above: Order Comment: Y Performed By: #### L 100.0100, L500.4050, L501.2450 #### [facility] [address] [place], [address] Albumin/Globulin [Mass ratio] 1.4 {ratio} Normal 0.7-1.7 [facility] Comment on above: Order Comment: Y Performed By: #### L 100.0100, L500.4050, L501.2450 #### [facility] [address] [place], [address] [id number] 0.3 g/dL Normal 0.0-0.4 [facility] Comment on above: Order Comment: Y Performed By: #### L 100.0100, L500.4050, L501.2450 #### [facility] [address] [place], [address] [id number] 0.9 g/dL Normal 0.4-1.0 [facility] Comment on above: Order Comment: Y Performed By: #### L 100.0100, L500.4050, L501.2450 #### [facility] [address] [place], [address] BETA GLOBULIN 1.0 g/dL Normal 0.7-1.3 [facility] Comment on above: Order Comment: Y Performed By: #### L 100.0100, L500.4050, L501.2450 #### [facility] [address] [place], [address] GAMMA GLOBULIN 0.8 g/dL Normal 0.4-1.8 [facility] Comment on above: Order Comment: Y Performed By: #### L 100.0100, L500.4050, L501.2450 #### [facility] [address] [place], [address] Globulin (S) [Mass/Vol] 3.0 g/dL Normal 2.2-3.9 [facility] Comment on above: Order Comment: Y Performed By: #### L 100.0100, L500.4050, L501.2450 #### [facility] [address] [place], [address] TOBIAS RESULT,S Comment Normal . [facility] Comment on above: Order Comment: Y Result Comment: No m onoclonality detected. Performed By: #### L 100.0100, L500.4050, L501.2450 #### [facility] [address] [place], [address] IMMUNOGLOB A QN 88 mg/dL Normal 87-352 [facility] Comment on above: Order Comment: Y Performed By: #### L 100.0100, L500.4050, L501.2450 #### [facility] [address] [place], [address] IMMUNOGLOB G QN 799 mg/dL Normal 586-1602 [facility] Comment on above: Order Comment: Y Performed By: #### L 100.0100, L500.4050, L501.2450 #### [facility] [address] [place], [address] IMMUNOGLOB M QN 55 mg/dL Normal 26-217 [facility] Comment on above: Order Comment: Y Performed By: #### L 100.0100, L500.4050, L501.2450 #### [facility] [address] [place], [address] M-Hernan Not Observed Normal Not Observed [facility] Comment on above: Order Comment: Y Performed By: #### L 100.0100, L500.4050, L501.2450 #### [facility] [address] [place], [address] NOTE: Comment Normal . [facility] Comment on above: Order Comment: Y Result Comment: Prot ein electrophoresis scan will follow via computer, mail, or compensation expert delivery. Performed By: #### L 100.0100, L500.4050, L501.2450 #### [facility] [address] [place], [address] Protein [Mass/Vol] 7.0 g/dL Normal 6.0-8.5 [facility] Comment on above: Order Comment: Y Performed By: #### L 100.0100, L500.4050, L501.2450 #### [facility] [address] [place], [address] Immunoglobulins G/A/M/Jose IMMUNOGLOB E QN 79 IU/mL Normal 6-495 [facility] Comment on above: Order Comment: Y Performed By: #### L 100.0100, L500.4050, L501.2450 #### [facility] [address] [place], [address] Amylaseon 05-01-2024 SAROJ 53 U/L Normal 25-115 [facility] Comment on above: Order Comment: 1 Performed By: #### L 100.0100, L500.4050, L501.2450 #### [facility] [address] [place], [address] CBC W/Diff, Automatedon 04-12 Absolute Lymph 3.82 X10 3/uL Normal 0.83-4.51 [facility] Comment on above: Performed By: #### L 100.0100, L500.4050, L501.2450 #### [facility] [address] [place], [address] Absolute Neut 4.0 X10 3/uL Normal 2.0-7.7 [facility] Comment on above: Performed By: #### L 100.0100, L500.4050, L501.2450 #### [facility] [address] [place], [address] Basophils/100 WBC (Bld) 1.0 % Normal 0-1 [facility] Comment on above: Performed By: #### L 100.0100, L500.4050, L501.2450 #### [facility] [address] [place], [address] Eosinophils/100 WBC (Bld) 2.7 % Normal 0-5 [facility] Comment on above: Performed By: #### L 100.0100, L500.4050, L501.2450 #### [facility] [address] [place], [address] Erythrocyte distribution width (RBC) [Ratio] 12.4 % Normal 11.6-14.6 [facility] Comment on above: Performed By: #### L 100.0100, L500.4050, L501.2450 #### [facility] [address] [place], [address] Hematocrit (Bld) [Volume fraction] 40.9 % Normal 37-47 [facility] Comment on above: Performed By: #### L 100.0100, L500.4050, L501.2450 #### [facility] [address] [place], [address] Hemoglobin (Bld) [Mass/Vol] 14.0 g/dL Normal 12.0-15.0 [facility] Comment on above: Performed By: #### L 100.0100, L500.4050,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 No current facility-administered medications for this visit. Allergies As of Date: 03/21/2024 Allergen Noted Reaction CODEINE 01/04/2005 GI Upset NAPROXEN 01/04/2005 PROZAC [FLUOXETINE HCL] 01/06/2016 Intolerance (more content not included)... Normal [facility] Cancer Ag125 SerPl-aCncon Cancer Ag 125 Qn 4 [arb'U]/mL Normal <39 [facility] Comment on above: Order Comment: Speci men Type: BLOOD SPECIMEN Ordering Facility: [facility] Address: [address] [place] [address] Result Comment: CA 1 25 test methodology used is the Electrochemiluminescence Immunoassay by [employer]. Results obtained with different methods or kits cannot be used interchangeably. The reference interval is based on the 95th percentile of 240 apparently healthy premenopausal and postmenopausal women. At a cutoff value of 65 U/mL, the test sensitivity to distinguish ovarian carcinoma (FIGO stage I to IV) versus benign gynecological disease is 79%, with a specificity of 82%. Reference: Cancer Antigen 125 (CA 125 II) [package insert V 1.0 [place]utanese]. [employer] [facility], [place], [place] (January 2015) Performed By: #### 1 0334-1 #### [facility] CLIA [id number] [address] [place] [address] [place] Cancer Ag19-9 SerPl-aCncon 1 05-22-2023 Cancer Ag 19-9 Qn 3.0 [arb'U]/mL Normal <36.0 [facility] Comment on above: Order Comment: Speci men Type: BLOOD SPECIMEN Ordering Facility: [facility] Address: [address] [place] [address] Result Comment: [facility] er antigen 19-9 test is used as an aid in monitoring response to treatment or recurrence in patients with established pancreatic, hepatobiliary, or gastrointestinal malignancies. Clinical correlation is required. The CA 19-9 Antigen test was performed using the [employer] DXI paramagnetic particle chemiluminescent immunoassay method. Results obtained with different assay methods or kits cannot be used interchangeably. Performed By: #### 2 4108-3, 2038-09 #### [facility] CLIA [id number] [address] [place] [address] [place] Abdomen/Pelvis without Conto n 01-29-2024 Abdomen/Pelvis without Cont [facility] Imaging Services [address] [place] [address] [id number] Abdomen/Pelvis without Cont MR#: [id number] Acct: [id number] Name: ISABEL VILLEDA Kate Rep #: [id number] : 1985 F 38 From: Sylvie neil MD PCP: Aviva Austin, SAMPLE CARRIER-C Status: REG ER Study: Abdomen/Pelvis without Cont Date of Exam: 01/10 Exam# [id number] Ordering Dr: Marcelo Loza DO [id number] HISTORY: abdominal pain. TECHNIQUE: Helically acquired images were obtained of the abdomen and pelvis without oral or IV contrast. A radiation dose optimization technique was used for this scan. 462 images. COMPARISON: 03/15/2023 FINDINGS: LOWER CHEST: Lung bases clear. BOWEL: Bowel nondilated. Appendectomy. No focal pericolonic inflammatory change. PERITONEUM: No significant free fluid. LIVER: Unremarkable. GALLBLADDER/BILIARY TREE: Cholecystectomy. SPLEEN/PANCREAS/ADRENAL GLANDS: Nonenlarged. KIDNEYS AND URETERS: 1 mm left upper pole calculus without hydronephrosis. No obstructing ureteral calculus on either side. VESSELS: No abdominal aortic aneurysm. PELVIC ORGANS: Absent uterus. Tubular 3.9 x 5.4 cm septated left adnexal cystic lesion. ABDOMINAL WALL: Tiny fat-containing of local hernia. BONES: Intact. Chronic intervertebral disc space narrowing of L5/S1. CT/Abdomen/Pelvis without Cont IMPRESSION: 1 mm nonobstructing left renal calculus. 5.4 cm septated left adnexal cystic lesion or hydrosalpinx. Recommend correlation with pelvic Doppler ultrasound. Electronically Signed: Sylvie Fong MD at 11:13 EDT Reading Location ID and State: [facility] / [place] Tel , Service support , CC: FREDY Austin; Dr. Marcelo Loza DO 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: Signed Normal [facility] Basic Metabolic Profile (BMP )on 01-29-2024 BUN/CRE 18.0 RATIO Normal 01-28 [facility] Comment on above: Performed By: #### L 500.2500, L100.0100, L501.2450, L500.3400 ####[facility] [address] [place], [address] CA,Total 8.4 mg/dL Low 8.5-10.1 [facility] Comment on above: Performed By: #### L 500.2500, L100.0100, L501.2450, L500.3400 ####[facility] [address] [place], [address] Chloride [Moles/Vol] 105 mmol/L Normal 98-107 [facility] Comment on above: Performed By: #### L 500.2500, L100.0100, L501.2450, L500.3400 ####[facility] [address] [place], [address] CO2 [Moles/Vol] 29.0 mmol/L Normal 21.0-32.0 [facility] Comment on above: Performed By: #### L 500.2500, L100.0100, L501.2450, L500.3400 ####[facility] [address] [place], [address] Creatinine [Mass/Vol] 0.95 mg/dL Normal 0.55-1.02 [facility] Comment on above: Result Comment: The validity of the calculated GFR GFRAA in patients over 70 years has not been determined. Clinical correlation is essential. Performed By: #### L 500.2500, L100.0100, L501.2450, L500.3400 ####[facility] [address] [place], [address] ECRCL 91.75 ml/min Normal [facility] Comment on above: Performed By: #### L 500.2500, L100.0100, L501.2450, L500.3400 ####[facility] [address] [place], [address] EST GFR - AA 84 mL/min Normal >60 [facility] Comment on above: Result Comment: Afri can Iraqi GFR Calc Performed By: #### L 500.2500, L100.0100, L501.2450, L500.3400 ####[facility] [address] [place], [address] GAP 6 Normal 5-15 [facility] Comment on above: Performed By: #### L 500.2500, L100.0100, L501.2450, L500.3400 ####[facility] [address] [place], [address] GFR/1.73 sq M.predicted among non-blacks MDRD (S/P/Bld) [Vol rate/Area] 69 mL/min/{1.73_m2} Normal >60 [facility] Comment on above: Result Comment: Non- GFR Calc Performed By: #### L 500.2500, L100.0100, L501.2450, L500.3400 ####[facility] [address] [place], [address] Glucose [Mass/Vol] 101 mg/dL Normal 74-106 [facility] Comment on above: Result Comment: Fast ing Glucose result from 100 to 125 mg/dL suggests IMPAIRED HOMEOSTASIS per A.D.A. criteria. Performed By: #### L 500.2500, L100.0100, L501.2450, L500.3400 ####[facility] [address] [place], [address] Potassium [Moles/Vol] 3.7 mmol/L Normal 3.5-5.1 [facility] Comment on above: Performed By: #### L 500.2500, L100.0100, L501.2450, L500.3400 ####[facility] [address] [place], [address] Sodium [Moles/Vol] 139 mmol/L Normal 136-145 [facility] Comment on above: Performed By: #### L 500.2500, L100.0100, L501.2450, L500.3400 ####[facility] [address] [place], [address] Urea nitrogen [Mass/Vol] 17 mg/dL Normal 7-18 [facility] Comment on above: Performed By: #### L 500.2500, L100.0100, L501.2450, L500.3400 ####[facility] [address] [place], [address] CBC W/Diff, Automatedon 10-2 0-2024 Absolute Lymph 3.46 X10 3/uL Normal 0.83-4.51 [facility] Comment on above: Performed By: #### L 500.2500, L100.0100, L501.2450, L500.3400 ####[facility] [address] [place], [address] Absolute Neut 4.0 X10 3/uL Normal 2.0-7.7 [facility] Comment on above: Performed By: #### L 500.2500, L100.0100, L501.2450, L500.3400 ####[facility] [address] [place], [address] Basophils/100 WBC (Bld) 1.0 % Normal 0-1 [facility] Comment on above: Performed By: #### L 500.2500, L100.0100, L501.2450, L500.3400 ####[facility] [address] [place], [address] Eosinophils/100 WBC (Bld) 2.6 % Normal 0-5 [facility] Comment on above: Performed By: #### L 500.2500, L100.0100, L501.2450, L500.3400 ####[facility] [address] [place], [address] Erythrocyte distribution width (RBC) [Ratio] 12.3 % Normal 11.6-14.6 [facility] Comment on above: Performed By: #### L 500.2500, L100.0100, L501.2450, L500.3400 ####[facility] [address] [place], [address] Hematocrit (Bld) [Volume fraction] 42.8 % Normal 37-47 [facility] Comment on above: Performed By: #### L 500.2500, L100.0100, L501.2450, L500.3400 ####[facility] [address] [place], [address] Hemoglobin (Bld) [Mass/Vol] 14.2 g/dL Normal 12.0-15.0 [facility] Comment on above: Performed By: #### L 500.2500, L100.0100, L501.2450, L500.3400 ####[facility] [address] [place], [address] IG% 0.100 Normal 0.0-0.9 [facility] Comment on above: Result Comment: IG% - Immature Granulocytes (promyelocytes, myelocytes and metamyelocytes) > 1% indicates that a LEFT SHIFT is Present. Performed By: #### L 500.2500, L100.0100, L501.2450, L500.3400 ####[facility] [address] [place], [address] Lymphocytes/100 WBC (Bld) 41.6 % High 19-41 [facility] Comment on above: Performed By: #### L 500.2500, L100.0100, L501.2450, L500.3400 ####[facility] [address] [place], [address] MCH (RBC) [Entitic mass] 29.5 pg Normal 27.0-32.0 [facility] Comment on above: Performed By: #### L 500.2500, L100.0100, L501.2450, L500.3400 ####[facility] [address] [place], [address] MCHC (RBC) [Mass/Vol] 33.2 g/dL Normal 32-36 [facility] Comment on above: Performed By: #### L 500.2500, L100.0100, L501.2450, L500.3400 ####[facility] [address] [place], [address] MCV (RBC) [Entitic vol] 88.8 fL Normal 81-99 [facility] Comment on above: Performed By: #### L 500.2500, L100.0100, L501.2450, L500.3400 ####[facility] [address] [place], [address] Monocytes/100 WBC (Bld) 7.2 % Normal 0-10 [facility] Comment on above: Performed By: #### L 500.2500, L100.0100, L501.2450, L500.3400 ####[facility] [address] [place], [address] Neutrophils/100 WBC (Bld) 47.5 % Normal 47-70 [facility] Comment on above: Performed By: #### L 500.2500, L100.0100, L501.2450, L500.3400 ####[facility] [address] [place], [address] Nucleated RBC (Bld) [#/Vol] 0 10*3/uL Normal 0-5 [facility] Comment on above: Performed By: #### L 500.2500, L100.0100, L501.2450, L500.3400 ####[facility] [address] [place], [address] Platelet mean volume (Bld) [Entitic vol] 10.7 fL Normal 6.2-12.0 [facility] Comment on above: Performed By: #### L 500.2500, L100.0100, L501.2450, L500.3400 ####[facility] [address] [place], [address] Platelets (Bld) [#/Vol] 328 10*3/uL Normal 150-450 [facility] Comment on above: Performed By: #### L 500.2500, L100.0100, L501.2450, L500.3400 ####[facility] [address] [place], [address] RBC (Bld) [#/Vol] 4.82 10*6/uL Normal 4.2-5.4 [facility] Comment on above: Performed By: #### L 500.2500, L100.0100, L501.2450, L500.3400 ####[facility] [address] [place], [address] RDW SD 40.4 fl Normal 35.1-43.9 [facility] Comment on above: Performed By: #### L 500.2500, L100.0100, L501.2450, L500.3400 ####[facility] [address] [place], [address] WBC (Bld) [#/Vol] 8.3 10*3/uL Normal 4.4-11.0 [facility] Comment on above: Performed By: #### L 500.2500, L100.0100, L501.2450, L500.3400 ####[facility] [address] [place], [address] Emergency Department Summary on 01-29-2024 Emergency Department Summary [facility] Medical Records Department [address] [address] [facility] [place] [address] Emergency Department Summary 01/29/24 MR#: [id number] Acct: [id number] Name: ISABEL VILLEDA Rep #: [id number] : 1985 38 From: Marcelo Loza DO PCP: Aviva Austin [employer]ER-C Status:DEP ER Location: ED HPI History of Present Illness Chief Complaint: Abd Pain Informant: patient Narrative Narrative: 38-year-old female presenting to the emergency room chief complaint of abdominal pain. Patient states that during the night she developed cramping muscular like pain in the right upper quadrant. Subsequently migrated to the right lower quadrant and is now more of a constant ache. She states it is causing her right upper thigh anteriorly to hurt as well. She denies any vomiting no diarrhea. She notes a normal bowel movement this morning. She notes some anorexia stating that she tried to have some toast this morning but did not sit well. She denies any urinary symptoms. She has had prior cholecystectomy appendectomy and full hysterectomy. She has had prior kidney stone and states this does feel different than that and that she does not have the urinary frequency or pressure. [facility] Medical History Cellulitis of right thigh Normal stress echocardiogram Acute sinusitis, unspecified Urinary tract infection with hematuria Radiculopathy Chronic back pain Preventative health care Anterior neck pain Other acute postprocedural pain Elevated lipase Low vitamin B12 level Low calcium levels History of stress test PTSD (post-traumatic stress disorder) Paresthesia Depression Anxiety Hypoglycemia Fatty liver Back pain Syncope History of hiatal hernia Smoker Shortness of breath on exertion Leg cramps History of pain when walking Cardiology follow-up encounter Chest pain Right groin pain Right ovarian cyst Urgency of urination Duodenal mass Epigastric pain Kidney stones Right lower quadrant pain Abnormal tumor markers Hepatomegaly Right renal stone Renal colic on right side History of Holter monitoring Right flank pain Suprapubic discomfort Urinary frequency Hidradenitis suppurativa Abscess of left axilla Urinary tract infection Ureteral calculus, right Irregular heart beat Abnormal urinalysis Diverticulosis Bloating Tenesmus (rectal) Unintentional weight loss Post-surgical hypoparathyroidism Diarrhea Abdominal pain Wears dentures History of COVID-19 Injury of head and neck Asthma Shortness of breath on exertion Leg cramps Hx of cystic acne Bradycardia Intermittent palpitations COVID-19 (03/17/21) Upper respiratory infection Vertigo Chronic constipation Pelvic pain Annular tear of lumbar disc Degenerative disc disease at L5-S1 level Generalized anxiety disorder with panic attacks Postoperative hypothyroidism Tinea pedis of both feet Hypokalemia Hypocalcemia Polycystic ovaries Hypothyroidism Carpal tunnel syndrome H/O breast lump Seasonal allergies Tobacco use Hypocalcemia syndrome TMJ (temporomandibular joint syndrome) Arthritis Home Medications ???Medication ???Instructions ???Recorded ???Last Taken ???Type cholecalciferol (vitamin D3) 125 125 mcg PO DAILY 07/01/22 Unknown History mcg (5,000 unit) capsule vitamin B12 1,000 mcg-folic acid 1 tab sublingual QODAY 07/29/22 Unknown History 400 mcg sublingual tablet dicyclomine 20 mg tablet 20 mg PO TID abdominal pain 11/03/22 Unknown History tizanidine 4 mg tablet 4 mg PO BID PRN PAIN 12/03/22 12/08/22 History levocetirizine 5 mg tablet See Rx Instructions .Route 12/14/22 Unknown Rx .COMPLEX #90 TABLETS calcitriol 0.5 mcg capsule 1.5 mcg (3 x 0.5 mcg) PO QHS 04/13/23 Unknown Rx calcium #90 caps levothyroxine 175 mcg tablet 150 mcg PO DAILY 10/27/23 Unknown History doxycycline monohydrate 100 mg 100 mg PO BID #20 caps 11/07/23 Unknown Rx capsule pantoprazole 40 mg tablet,delayed 40 mg PO DAILY #30 tabs 11/30/23 Unknown Rx release duloxetine 20 mg capsule,delayed 20 mg PO DAILY #30 caps 01/25/24 Unknown Rx release Allergy/AdvReac Type Severity Reaction Status Date / Time codeine Allergy Mild Itching Verified 01/29/24 08:48 fluoxetine (From Prozac) AdvReac EDWIN Verified 01/29/24 08:48 naproxen (From Naprosyn) AdvReac NOSEBLEED Verified 01/29/24 08:48 Family History Father Alcoholism Mother Anemia Depression Hypertension Hyperlipemia Diabetes Grandfather Diabetes Myocardial infarction Grandmother Breast cancer Diabetes Surgical History History of esophagogastroduodenoscop y (EGD) History of bilateral salpingo-oophorectomy S/P appen (more content not included)... Normal [facility] Lipaseon 01-29-2024 Lipase [Catalytic activity/Vol] 22 U/L Normal 13-75 [facility] Comment on above: Result Comment: Alexander sun note: LIPASE revised reference range effective 22. New Lipase methodology. Expected to produce lower values than the previous assay method. NEW Reference Range: 13 - 75 U/L Performed By: #### L 500.2500, L100.0100, L501.2450, L500.3400 ####[facility] [address] [place], [place], [address] Liver Profileon 01-29-2024 Albumin [Mass/Vol] 3.7 g/dL Normal 3.2-5.0 [facility] Comment on above: Performed By: #### L 500.2500, L100.0100, L501.2450, L500.3400 ####[facility] [address] [place], [address] ALK P 49 U/L Normal 45-117 [facility] Comment on above: Performed By: #### L 500.2500, L100.0100, L501.2450, L500.3400 ####[facility] [address] [place], [address] ALT [Catalytic activity/Vol] 23 U/L Normal 13-56 [facility] Comment on above: Performed By: #### L 500.2500, L100.0100, L501.2450, L500.3400 ####[facility] [address] [place], [address] AST [Catalytic activity/Vol] 13 U/L Low 15-37 [facility] Comment on above: Performed By: #### L 500.2500, L100.0100, L501.2450, L500.3400 ####[facility] [address] [place], [address] Bilirubin [Mass/Vol] 0.50 mg/dL Normal 0.20-1.00 [facility] Comment on above: Result Comment: For patients on eltrombopag therapy, use of Dimension [place] TBIL is not recommended. Performed By: #### L 500.2500, L100.0100, L501.2450, L500.3400 ####[facility] [address] [place], [address] Bilirubin.direct [Mass/Vol] 0.13 mg/dL Normal 0.00-0.30 [facility] Comment on above: Performed By: #### L 500.2500, L100.0100, L501.2450, L500.3400 ####[facility] [address] [place], [address] Globulin (S) [Mass/Vol] 3.3 g/dL Normal 2.2-4.2 [facility] Comment on above: Performed By: #### L 500.2500, L100.0100, L501.2450, L500.3400 ####[facility] [address] [place], [address] T PROT 7.0 g/dL Normal 6.4-8.2 [facility] Comment on above: Performed By: #### L 500.2500, L100.0100, L501.2450, L500.3400 ####[facility] [address] [place], [address] Urinalysis, Completeon 01-28 AMORPHOUS 2+ Normal [facility] Comment on above: Order Comment: CLEAN CATCH Performed By: #### L 400.0001 ####[facility] [address] [place], [address] EPI,SQUAMOUS 0-5 SEEN Normal 5-10 [facility] Comment on above: Order Comment: CLEAN CATCH Performed By: #### L 400.0001 ####[facility] [address] [place], [address] BACTERIA 0 SEEN Normal None Seen [facility] Comment on above: Order Comment: CLEAN CATCH Performed By: #### L 400.0001 ####[facility] [address] [place], [address] Mucus Ql (Urine sed) 0 SEEN Normal [facility] Comment on above: Order Comment: CLEAN CATCH Performed By: #### L 400.0001 ####[facility] [address] [place], [address] RBC 0 SEEN Normal 0-5 [facility] Comment on above: Order Comment: CLEAN CATCH Performed By: #### L 400.0001 ####[facility] [address] [place], [address] WBC 0 SEEN Normal 0-5 [facility] Comment on above: Order Comment: CLEAN CATCH Performed By: #### L 400.0001 ####[facility] [address] [place], [address] T4 Free Directon 11-30-2023 T4 FREE DIRECT 1.06 ng/dL Normal 0.76-1.46 [facility] Comment on above: Performed By: #### L 506.1000, L506.0400, L501.9520 ####[facility] [address] [place], [address] Thyroid Stim Hormone (TSH)on 11-30-2023 TSH 1.190 uIU/mL Normal 0.358-3.740 [facility] Comment on above: Performed By: #### L 506.1000, L506.0400, L501.9520 ####[facility] [address] [place], [address] Vitamin D,25 Hydroxyon 11-29 Vitamin D 25-OH 40.4 ng/mL Normal [facility] Comment on above: Result Comment: [place] min D 25(OH) Status Range Deficiency <20 ng/mL (50nmol/L) Insufficiency 20 - 30 ng/mL (50 - 75 nmol/L) Sufficiency 30 - 100 ng/mL (75 - 250 nmol/L) Toxicity >100 ng/mL (>250 nmol/L) Performed By: #### L 506.1000, L506.0400, L501.9520 ####[facility] [address] [place], [address] Urgent Care Visit Reporton 0 11-07-2023 Urgent Care Visit Report [facility] [address], [address] [place], [place] [address] OFFICE VISIT Date of Service: 11/07/23 MR#: [id number] Acct: [id number] Name: ISABEL VILLEDA Rep #: [id number] : 1985 Provider: ANTOINE Plummer Age/Sex: 38/F Location: [facility] Status: Signed Intake Vital Signs 03/15/23 17:29 11/07/23 16:31 Height 5 ft 9 in 5 ft 9 in Weight: 183 lb BMI 27.0 BP 120/80 Position Sitting Pulse 69 Temp 99.1 F Temp Source Temporal Pulse Oximetry (%) 96 Oxygen Delivery Method room air Intake Visit Reasons: CONCERN FOR A BOIL/GROIN Accompanied by: Self Is patient in pain?: Yes Pain scale (1-10): 1 Allergies codeine Allergy (Mild, Verified 11/07/23 16:29) Itching fluoxetine (From Prozac) Adverse Reaction (Verified 11/07/23 16:29) EDWIN naproxen (From Naprosyn) Adverse Reaction (Verified 11/07/23 16:29) NOSEBLEED Medications ???Medication ???Instructions ???Recorded ???Confirmed ???Type cholecalciferol (vitamin D3) 125 125 mcg PO DAILY 07/01/22 11/07/23 History mcg (5,000 unit) capsule vitamin B12 1,000 mcg-folic acid 1 tab sublingual QODAY 07/29/22 11/07/23 History 400 mcg sublingual tablet dicyclomine 20 mg tablet 20 mg PO TID abdominal pain 11/03/22 11/07/23 History tizanidine 4 mg tablet 4 mg PO BID PRN PAIN 12/03/22 11/07/23 History levocetirizine 5 mg tablet See Rx Instructions .Route 12/14/22 11/07/23 Rx .COMPLEX #90 TABLETS calcitriol 0.5 mcg capsule 1.5 mcg (3 x 0.5 mcg) PO QHS 04/13/23 11/07/23 Rx calcium #90 caps levothyroxine 175 mcg tablet 150 mcg PO DAILY 10/27/23 11/07/23 History pantoprazole 20 mg tablet,delayed 20 mg PO DAILY 10/27/23 11/07/23 History release duloxetine 20 mg capsule,delayed 20 mg PO DAILY #14 caps 10/28/23 11/07/23 Rx release doxycycline monohydrate 100 mg 100 mg PO BID #20 caps 11/07/23 11/07/23 Rx capsule PFSH Medical History (Updated 11/07/23 @ 17:02 by Jefe SCHULTZ, PA) Cellulitis of right thigh Normal stress echocardiogram Acute sinusitis, unspecified Urinary tract infection with hematuria Radiculopathy Chronic back pain Preventative health care Anterior neck pain Other acute postprocedural pain Elevated lipase Low vitamin B12 level Low calcium levels History of stress test PTSD (post-traumatic stress disorder) Paresthesia Depression Anxiety Hypoglycemia Fatty liver Back pain Syncope History of hiatal hernia Smoker Shortness of breath on exertion Leg cramps History of pain when walking Cardiology follow-up encounter Chest pain Right groin pain Right ovarian cyst Urgency of urination Duodenal mass Epigastric pain Kidney stones Right lower quadrant pain Abnormal tumor markers Hepatomegaly Right renal stone Renal colic on right side History of Holter monitoring Right flank pain Suprapubic discomfort Urinary frequency Hidradenitis suppurativa Abscess of left axilla Urinary tract infection Ureteral calculus, right Irregular heart beat Abnormal urinalysis Diverticulosis Bloating Tenesmus (rectal) Unintentional weight loss Post-surgical hypoparathyroidism Diarrhea Abdominal pain Wears dentures History of COVID-19 Injury of head and neck Asthma Shortness of breath on exertion Leg cramps Hx of cystic acne Bradycardia Intermittent palpitations COVID-19 (03/17/21) Upper respiratory infection Vertigo Chronic constipation Pelvic pain Annular tear of lumbar disc Degenerative disc disease at L5-S1 level Generalized anxiety disorder with panic attacks Postoperative hypothyroidism Tinea pedis of both feet Hypokalemia Hypocalcemia Polycystic ovaries Hypothyroidism Carpal tunnel syndrome H/O breast lump Seasonal allergies Tobacco use Hypocalcemia syndrome TMJ (temporomandibular joint syndrome) Arthritis Surgical History History of esophagogastroduodenoscop y (EGD) History of bilateral salpingo-oophorectomy S/P appendectomy History of appendectomy History of esophagogastroduodenoscop y (EGD) History of incision and drainage S/P hysterectomy H/O thyroidectomy History of cholecystectomy History of total hysterectomy History of thyroidectomy History of partial hysterectomy Family History Father Alcoholism Mother Anemia Depression Hypertension Hyperlipemia Diabetes Grandfather Diabetes Myocardial infarction Grandmother Breast cancer Diabetes Social History household members: none Smoking Status: Current every day smoker tobacco type: cigarettes Tobacco: How many years used: 20 alcohol intake: never substance use type: does not use what type of phys (more content not included)... Normal [facility] Gastroenterology Visit Repor ton 10-27-2023 Gastroenterology Visit Report [facility] [address] [place] [address] OFFICE VISIT Date of Service: 10/27/23 MR#: [id number] Acct: [id number] Name: ISABEL VILLEDA Rep #: [id number] : 1985 Provider: Jules Rene DO Age/Sex: 38/F Location: [facility] Status: Signed Intake Vital Signs 03/15/23 17:29 Height 5 ft 9 in Intake Visit Reasons: follow up Allergies codeine Allergy (Mild, Verified 03/15/23 17:31) Itching fluoxetine (From Prozac) Adverse Reaction (Verified 03/15/23 17:31) EDWIN naproxen (From Naprosyn) Adverse Reaction (Verified 03/15/23 17:31) NOSEBLEED Medications ???Medication ???Instructions ???Recorded ???Confirmed ???Type cholecalciferol (vitamin D3) 125 125 mcg PO DAILY 07/01/22 10/27/23 History mcg (5,000 unit) capsule vitamin B12 1,000 mcg-folic acid 1 tab sublingual QODAY 07/29/22 10/27/23 History 400 mcg sublingual tablet dicyclomine 20 mg tablet 20 mg PO TID abdominal pain 11/03/22 10/27/23 History tizanidine 4 mg tablet 4 mg PO BID PRN PAIN 12/03/22 10/27/23 History levocetirizine 5 mg tablet See Rx Instructions .Route 12/14/22 10/27/23 Rx .COMPLEX #90 TABLETS calcitriol 0.5 mcg capsule 1.5 mcg (3 x 0.5 mcg) PO QHS 04/13/23 10/27/23 Rx calcium #90 caps levothyroxine 175 mcg tablet 150 mcg PO DAILY 10/27/23 History pantoprazole 20 mg tablet,delayed 20 mg PO DAILY 10/27/23 10/27/23 History release PFSH Medical History Abdominal pain Abnormal tumor markers Abnormal urinalysis Abscess of left axilla Acute sinusitis, unspecified Annular tear of lumbar disc Anterior neck pain Anxiety Arthritis Asthma Back pain Bloating Bradycardia Cardiology follow-up encounter Carpal tunnel syndrome Chest pain Chronic back pain Chronic constipation COVID-19 (03/17/21) Degenerative disc disease at L5-S1 level Depression Diarrhea Diverticulosis Duodenal mass Elevated lipase Epigastric pain Fatty liver Generalized anxiety disorder with panic attacks H/O breast lump Hepatomegaly Hidradenitis suppurativa History of COVID-19 History of hiatal hernia History of Holter monitoring History of pain when walking History of stress test Hx of cystic acne Hypocalcemia Hypocalcemia syndrome Hypoglycemia Hypokalemia Hypothyroidism Injury of head and neck Intermittent palpitations Irregular heart beat Kidney stones Leg cramps Leg cramps Low calcium levels Low vitamin B12 level Normal stress echocardiogram Other acute postprocedural pain Paresthesia Pelvic pain Polycystic ovaries Post-surgical hypoparathyroidism Postoperative hypothyroidism Preventative health care PTSD (post-traumatic stress disorder) Radiculopathy Renal colic on right side Right flank pain Right groin pain Right lower quadrant pain Right ovarian cyst Right renal stone Seasonal allergies Shortness of breath on exertion Shortness of breath on exertion Smoker Suprapubic discomfort Syncope Tenesmus (rectal) Tinea pedis of both feet TMJ (temporomandibular joint syndrome) Tobacco use Unintentional weight loss Upper respiratory infection Ureteral calculus, right Urgency of urination Urinary frequency Urinary tract infection Urinary tract infection with hematuria Vertigo Wears dentures Surgical History H/O thyroidectomy History of appendectomy History of bilateral salpingo-oophorectomy History of cholecystectomy History of esophagogastroduodenoscop y (EGD) History of esophagogastroduodenoscop y (EGD) History of incision and drainage History of partial hysterectomy History of thyroidectomy History of total hysterectomy S/P appendectomy S/P hysterectomy Family History Father Alcoholism Mother Anemia Depression Hypertension Hyperlipemia Diabetes Grandfather Diabetes Myocardial infarction Grandmother Breast cancer Diabetes Social History household members: none Smoking Status: Current every day smoker tobacco type: cigarettes Tobacco: How many years used: 20 alcohol intake: never substance use type: does not use what type of physical activity do you participate in: none HPI HPI Details: ISABEL VILLEDA, is a 38 F who presents to the office today for follow up. 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 *BGI established 3.. with constipation, abdominal bloating/pain and a history of diverticulosis. Constipation present several years prior with use of Dulcolax to promote (more content not included)... Normal [facility] MA MAMMOGRAM DIAGNOSTIC BILA TERALon 06-20-2023 MA MAMMOGRAM DIAGNOSTIC BILATERAL ORIGINAL FROM: [address] [address] PROCEDURE FOR: ISABEL VILLEDA [address] [place] [address] Home: PID#: [id number] Exam#: [id number] : 1985 Age: 37 TO: AVIVA [place]UST[place] APRN [facility] [address] [phone] Fax: NO FAX EXAMINATION: BILATERAL DIGITAL DIAGNOSTIC MAMMOGRAM, 06/20/2023 8:18 am TECHNIQUE: Diagnostic mammography of the bilateral breasts was performed. Computer aided detection was utilized in the interpretation of this exam. Current study was also evaluated with a Computer Aided Detection (CAD) system. COMPARISON: 06/09/2023 and 12/05/2014 left breast HISTORY: ORDERING SYSTEM PROVIDED HISTORY: Reason for Exam: Abnormal Mammogram FINDINGS: BREAST DENSITY: Heterogeneously dense The left breast 7 mm group of punctate calcifications is again demonstrated, this is not changed in appearance. The right breast 9 mm group of punctate calcifications are reproduced and not significantly changed. No significant masses, calcifications, or other findings. 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 Right breast calcifications are unchanged, these are also probably benign. Recommend follow-up bilateral mammogram with magnification views in 6 months to document stability of the calcifications. Ultrasound will be performed the same day and reported separately for the right breast mass and asymmetries. BIRADS: MAMMOGRAM BI-RADS: 0: Needs addl evaluation RECALL: immediate RECALL TYPE: US LETTER SENT: Abnormal-Needs additional work up BI-RADS 0 Interpreted by: Burke Doyle MD Preliminary Report By: Burke Doyle MD Electronically signed By Burke Doyle MD Dictated Date: 06/20/2023 8:52:11 AM Prelim Date: 06/20/2023 9:03:11 AM Sign Date: 06/20/2023 9:03:11 AM Ordering Provider: AVIVA AUSTIN CLINICAL: BILATERAL CALCIFICATIONS. copy to: LIANNE BOWMAN MD, ph: [phone] [employer] Operator: MADHAV MADISON RT (R) (M) (CT) letter sent: Abnormal-Needs additional work up BI-RADS 0 Mammogram BI-RADS: 0 Indeterminate Normal [facility] ([place]) US BREAST RIGHT LIMITEDon US BREAST RIGHT LIMITED ORIGINAL FROM: [address] [address] PROCEDURE FOR: ISABEL VILLEDA [address] [place] [address] Home: PID#: [id number] Exam#: [id number] : 1985 Age: 37 TO: AVIVA AUSTIN APRN [facility] [address] [address] Fax: NO FAX EXAMINATION: ULTRASOUND OF THE right breast 06/20/2023 8:19 am TECHNIQUE: Color flow and real-time targeted ultrasound of the right breast were performed. COMPARISON: None. HISTORY: ORDERING SYSTEM PROVIDED HISTORY: Reason for Exam: Abnormal Mammogram FINDINGS: There are no visible masses or cysts to account for the mammographic findings. There is a 6 mm hypoechoic area in the right breast 12 o'clock 2 cm from the nipple which is likely a fat lobule, this is not felt to correspond to the mammographic abnormalities. IMPRESSION: No visible abnormalities to account for the mammographic findings, since this is most likely benign a follow-up right breast mammogram in 6 months is recommended to document stability, the bilateral microcalcifications can also be followed up at that time. BIRADS: MAMMOGRAM BI-RADS: 3: Probably benign RECALL: 6 month follow-up RECALL TYPE: mammo LETTER SENT: Probably Benign BI-RADS 3 Interpreted by: Burke Doyle MD Preliminary Report By: Burke Doyle MD Electronically signed By Burke Doyle MD Dictated Date: 06/20/2023 9:30:42 AM Prelim Date: 06/20/2023 9:35:22 AM Sign Date: 06/20/2023 9:35:22 AM Ordering Provider: AVIVA AUSTIN CLINICAL: MAMMOGRAPHIC DENSITY RIGHT BREAST ASYMMETRIC DENSITY RIGHT BREAST. copy to: LIANNE BOWMAN MD, ph: [phone] [employer] Operator: CANDY DE LA ROSA RT,RDMS,RVT,RDCS letter sent: Probably Benign BI-RADS 3 Ultrasound BI-RADS: 3 Probably benign Normal [facility] ([place]) PR MAMMOGRAM SCREENING BILAT ERAL W/TOMOon 06-15-2023 MA MAMMOGRAM SCREENING BILATERAL W/DELONTE ORIGINAL FROM: [address] [address] PROCEDURE FOR: ISABEL VILLEDA [address] [place], [place] [id number] Home: PID#: [id number] Exam#: [id number] : 1985 Age: 37 TO: AVIVA AUSTIN BEAM BUILDER [facility] [address] [address] Fax: NO FAX EXAMINATION: SCREENING DIGITAL BILATERAL MAMMOGRAM WITH TOMOSYNTHESIS, 06/09/2023 10:34 am TECHNIQUE: Screening mammography of the bilateral breasts was performed with tomosynthesis. 2D standard and 3D tomosynthesis combination imaging performed through both breasts in the MLO and CC projection. Computer aided detection was utilized in the interpretation of this exam. COMPARISON: 12/05/2014 HISTORY: Breast cancer screening. FINDINGS: BREAST DENSITY: Heterogeneously dense There is a 9 mm group of punctate calcifications in the right breast central to the nipple anterior depth. There is additionally a 9 mm oval mass with obscured margins in the right breast central to the nipple middle depth. This is confirmed on additional tomographic views. There is additionally a 6 mm oval masslike asymmetry in the medial aspect of the right breast middle depth seen only on the CC view. There is also a 1.6 cm asymmetry in the right breast central to the nipple posterior depth seen only on the CC view. There is also a 7 mm group of punctate calcifications in the left breast central to the nipple posterior depth. There are no other significant masses, calcifications, or other findings. IMPRESSION: The 7 mm group of punctate calcifications in the left breast central to the nipple and the 9 mm group of punctate calcifications in the right breast central to the nipple are indeterminate. Additional views including magnification CC, magnification ML, and a full field ML view are recommended. The 9 mm oval mass in the right breast central to the nipple, the 6 mm masslike asymmetry in the right breast seen only on the CC view, and the 1.6 cm asymmetry in the right breast central to the nipple seen only on the CC view are indeterminate. A right breast ultrasound is recommended for further evaluation. We will contact the patient to arrange for the exam. Shanae Marrerozick risk calculations, generated with the history provided, report this patient's 10 year risk and lifetime risk for developing breast cancer at 0.8% and 7.4%, respectively. Based on this assessment tool, if the patient's calculated lifetime risk is below 20%, then the patient is considered at average risk for developing breast cancer. If the patient's calculated lifetime risk is at or above 20%, then the patient is considered high risk for developing breast cancer and may be a candidate for supplemental breast MRI screening in addition to annual mammographic screening per the [employer]. BIRADS: MAMMOGRAM BI-RADS: 0: Needs addl evaluation RECALL: immediate RECALL TYPE: Mammo+US LETTER SENT: Abnormal-Needs additional work up BI-RADS 0 Interpreted by: Tray Agrawal MD Preliminary Report By: Tray Agrawal MD Electronically signed By Tray Agrawal MD Dictated Date: 06/15/2023 3:34:15 PM Prelim Date: 06/15/2023 3:53:40 PM Sign Date: 06/15/2023 3:53:40 PM Ordering Provider: AVIVA AUSTIN [employer] Operator: JOSE F WEBB RT(Nuha)(M)(CT) letter sent: Abnormal-Needs additional work up BI-RADS 0 Mammogram BI-RADS: 0 Indeterminate Normal [facility] ([place]) US ABDOMEN LIMITEDon 024 US ABDOMEN LIMITED ORIGINAL EXAMINATION: LIMITED ABDOMINAL ULTRASOUND05/18/2023 8:05 am [...] Date: 05/18/2023 4:42:24 PM Ordering Provider: AVIVA AUSTIN Normal [facility] ([place]) XR CHEST 2 VIEWSon 4 XR CHEST 2 VIEWS ORIGINAL EXAMINATION: TWO XRAY VIEWS OF THE [...] the study and agree with the report. Joseilto Paulino M.D. Interpreted by: Joselito Paulino Preliminary Report By: Digna Reeves Electronically signed By Joselito Paulino Dictated Date: 05/04/2023 9:44:23 PM Prelim Date: 05/04/2023 9:50:01 PM Sign Date: 05/05/2023 12:16:43 AM Ordering Provider: SANDRA Grossman [facility] ([place]) .Auto DiffOrdered By: SYSTEM SYSTEM on 05-04-2023 Basophil, Absolute 0.1 103/mcL Normal 0.0-0.2 AO Wo rkflow SS Comment on above: Performed By: #### M DW, DIMER, ANEU, ADIFF, TROPHS, CBC, BMP, GFR #### [address] [address] Basophils/100 WBC (Bld) 0.6 % Normal 0.0-2.5 AO Workflow SS Comment on above: Performed By: #### M DW, DIMER, ANEU, ADIFF, TROPHS, CBC, BMP, GFR #### [address] [address] Eosinophil, Absolute 0.0 103/mcL Normal 0.0-0.4 AO Workflow SS Comment on above: Performed By: #### M DW, DIMER, ANEU, ADIFF, TROPHS, CBC, BMP, GFR #### [address] [address] Eosinophils/100 WBC (Bld) 0.1 % Normal 0.0-7.0 AO Workflow SS Comment on above: Performed By: #### M DW, DIMER, ANEU, ADIFF, TROPHS, CBC, BMP, GFR #### [address] [address] Lymphocyte, Absolute 2.7 103/mcL Normal 0.8-3.9 AO Workflow SS Comment on above: Performed By: #### M DW, DIMER, ANEU, ADIFF, TROPHS, CBC, BMP, GFR #### [address] [address] Lymphocytes/100 WBC (Bld) 21.5 % Normal 10.0-50.0 AO Workflow SS Comment on above: Performed By: #### M DW, DIMER, ANEU, ADIFF, TROPHS, CBC, BMP, GFR #### [address] [address] Monocyte, Absolute 1.0 103/mcL Normal 0.2-1.0 AO Wo rkflow SS Comment on above: Performed By: #### M DW, DIMER, ANEU, ADIFF, TROPHS, CBC, BMP, GFR #### [address] [address] Monocytes/100 WBC (Bld) 7.6 % Normal 1.7-13.0 AO Workflow SS Comment on above: Performed By: #### M DW, DIMER, ANEU, ADIFF, TROPHS, CBC, BMP, GFR #### [address] [address] Neutrophils/100 WBC (Bld) 70.2 % Normal 37.0-80.0 AO Workflow SS Comment on above: Performed By: #### M DW, DIMER, ANEU, ADIFF, TROPHS, CBC, BMP, GFR #### [address] [address] .GFRon 05-04-2023 GFR 66 ml/min/1.73sqm Normal [facility] ([place]) Comment on above: Result Comment: GFR Population mean for , Non- Americans Ages 20-29 = 116 mL/min/1.73 sq.m. Ages 30-39 = 107 mL/min/1.73 sq.m. Ages 40-49 = 99 mL/min/1.73 sq.m. Ages 50-59 = 93 mL/min/1.73 sq.m. Ages 60-69 = 85 mL/min/1.73 sq.m. Ages 70+ = 75 mL/min/1.73 sq.m. Chronic Kidney Disease: Less than 60 mL/min/1.73 square meters End Stage Renal Disease: Less than 15 mL/min/1.73 square meters Performed By: #### M DW, DIMER, ANEU, ADIFF, TROPHS, CBC, BMP, GFR ####M[address] [place], [place] [address] GFR Non- 54 ml/min/1.73sqm Normal [facility] ([place]) Comment on above: Result Comment: GFR Population mean for , Non- Americans Ages 20-29 = 116 mL/min/1.73 sq.m. Ages 30-39 = 107 mL/min/1.73 sq.m. Ages 40-49 = 99 mL/min/1.73 sq.m. Ages 50-59 = 93 mL/min/1.73 sq.m. Ages 60-69 = 85 mL/min/1.73 sq.m. Ages 70+ = 75 mL/min/1.73 sq.m. Chronic Kidney Disease: Less than 60 mL/min/1.73 square meters End Stage Renal Disease: Less than 15 mL/min/1.73 square meters Performed By: #### M DW, DIMER, ANEU, ADIFF, TROPHS, CBC, BMP, GFR ####[address] [place], [place] [address] .MDWon 05-04-2023 Monocyte Distribution Width 15.10 Normal 0.00-20.00 [facility] ([place]) Comment on above: Result Comment: For ED adult patients suspected of sepsis, MDW<=20.0 does not rule out sepsis or risk of sepsis Performed By: #### M DW, DIMER, ANEU, ADIFF, TROPHS, CBC, BMP, GFR #### Mandeep [address] [address] .NEUABSOrdered By: SYSTEM SY STEM on 05-04-2023 Neutrophil, Absolute 8.8 103/mcL High 2.9-6.2 AO Workflow SS Comment on above: Performed By: #### M DW, DIMER, ANEU, ADIFF, TROPHS, CBC, BMP, GFR #### Mandeep [address] [address] BMPon 05-04-2023 BUN/Creatinine Ratio 17 ratio Normal 7-27 [facility] ([place]) Comment on above: Performed By: #### M DW, DIMER, ANEU, ADIFF, TROPHS, CBC, BMP, GFR ####[address] [place], [place] [address] BMPOrdered By: SYSTEM SYSTEM on 05-04-2023 Calcium [Mass/Vol] 8.1 mg/dL Low 8.4-10.2 AO ADM SS Comment on above: Performed By: #### M DW, DIMER, ANEU, ADIFF, TROPHS, CBC, BMP, GFR ####[address] [place], [place] [address] Chloride [Moles/Vol] 101 mmol/L Normal 98-107 AO A DM SS Comment on above: Performed By: #### M DW, DIMER, ANEU, ADIFF, TROPHS, CBC, BMP, GFR ####[address] [place], [place] [address] CO2 [Moles/Vol] 27 mmol/L Normal 22-29 AO ADM SS Comment on above: Performed By: #### M DW, DIMER, ANEU, ADIFF, TROPHS, CBC, BMP, GFR ####[address] [place], [place] [address] Creatinine [Mass/Vol] 1.12 mg/dL High 0.55-1.02 AO ADM SS Comment on above: Performed By: #### M DW, DIMER, ANEU, ADIFF, TROPHS, CBC, BMP, GFR ####[address] [place], [place] [address] Electrolyte Balance 12.0 mEq/L Normal 4.0-15.0 AO AD M SS Comment on above: Performed By: #### M DW, DIMER, ANEU, ADIFF, TROPHS, CBC, BMP, GFR ####M[address] [place], [place] [address] Glucose [Mass/Vol] 118 mg/dL High 70-105 AO ADM SS Comment on above: Performed By: #### M DW, DIMER, ANEU, ADIFF, TROPHS, CBC, BMP, GFR ####[address] [place], [place] [address] Potassium [Moles/Vol] 3.9 mmol/L Normal 3.5-5.1 AO ADM SS Comment on above: Performed By: #### M DW, DIMER, ANEU, ADIFF, TROPHS, CBC, BMP, GFR ####Mandeep [address] [address] Sodium [Moles/Vol] 140 mmol/L Normal 136-145 AO ADM SS Comment on above: Performed By: #### M DW, DIMER, ANEU, ADIFF, TROPHS, CBC, BMP, GFR ####Mande[address] [place] [id number] Urea nitrogen [Mass/Vol] 19 mg/dL High 7-18 AO ADM SS Comment on above: Performed By: #### M DW, DIMER, ANEU, ADIFF, TROPHS, CBC, BMP, GFR ####[address] [place] [address] CBCOrdered By: SYSTEM SYSTEM on 05-04-2023 Erythrocyte distribution width (RBC) [Ratio] 13.3 % Normal 11.5-14.5 AO Workflow SS Comment on above: Performed By: #### M DW, DIMER, ANEU, ADIFF, TROPHS, CBC, BMP, GFR #### [address] [place] [id number] Hematocrit (Bld) [Volume fraction] 38.7 % Normal 37.0-47.0 AO Workflow SS Comment on above: Performed By: #### M DW, DIMER, ANEU, ADIFF, TROPHS, CBC, BMP, GFR #### Mandeep [address] [address] MCH (RBC) [Entitic mass] 30.6 pg Normal 27.0-31.2 AO Workflow SS Comment on above: Performed By: #### M DW, DIMER, ANEU, ADIFF, TROPHS, CBC, BMP, GFR #### Mandeep [address] [address] MCHC 34.3 G/dL Normal 33.0-37.0 AO Workflow SS Comment on above: Performed By: #### M DW, DIMER, ANEU, ADIFF, TROPHS, CBC, BMP, GFR #### Mandeep [address] [address] MCV (RBC) [Entitic vol] 89.2 fL Normal 80.0-94.0 AO Workflow SS Comment on above: Performed By: #### M DW, DIMER, ANEU, ADIFF, TROPHS, CBC, BMP, GFR #### [address] [address] Platelet mean volume (Bld) [Entitic vol] 8.7 fL Normal 7.4-10.4 AO Workflow SS Comment on above: Performed By: #### M DW, DIMER, ANEU, ADIFF, TROPHS, CBC, BMP, GFR #### [address] [address] CBCon 05-04-2023 Hgb 13.3 G/dL Normal 12.0-16.0 [facility] ([place]) Comment on above: Performed By: #### M DW, DIMER, ANEU, ADIFF, TROPHS, CBC, BMP, GFR #### [address] [address] Platelet 286 10 3/mcL Normal 130-400 [facility] ([place]) Comment on above: Performed By: #### M DW, DIMER, ANEU, ADIFF, TROPHS, CBC, BMP, GFR #### [address] [address] RBC 4.34 10 6/mcL Normal 4.20-5.40 [facility] ([place]) Comment on above: Performed By: #### M DW, DIMER, ANEU, ADIFF, TROPHS, CBC, BMP, GFR #### [address] [address] WBC 12.5 10 3/mcL High 4.6-10.8 [facility] ([place]) Comment on above: Performed By: #### M DW, DIMER, ANEU, ADIFF, TROPHS, CBC, BMP, GFR #### [address] [address] DIMERon 05-04-2023 D-Dimer <200 Normal 0-230 [facility] ([place]) Comment on above: Result Comment: DDN: Results reported in D-DU ng/mL. Negative for D-dimer. DVT/PE is highly unlikely. Note: False negative results may be seen in patients on anticoagulant therapy. The result of the D-Dimer test should be evaluated in the context of all the clinical and laboratory data available. In those instances where the laboratory result does not agree with the clinical evaluation, additional tests should be performed accordingly. If the D-Dimer result is used to exclude DVT or PE, the recommended cutoff value is less than 230 ng/mL. The D-Dimer result should not be used alone to rule in DVT/PE, but should be used in conjunction with a clinical pretest probability (PTP)assessment model to exclude venous thromboembolism (VTE) in outpatients suspected of deep venous thrombosis (DVT) and pulmonary embolism (PE). Performed By: #### M DW, DIMER, ANEU, ADIFF, TROPHS, CBC, BMP, GFR #### [place] [address] LABORATORYOrdered By: Yessica Shelton on 05-04-2023 Fibrin D-dimer DDU (PPP) [Mass/Vol] ng/mL D-DU Normal 0 - 230 ng/mL D-DU AO HemoHub SS Comment on above: Result Comment: DDN: Results reported in D-DU ng/mL. Negative for D-dimer. DVT/PE is highly unlikely. Note: False negative results may be seen in patients on anticoagulant therapy. Interpretive Data: T he result of the D-Dimer test should be evaluated in the context of all the clinical and laboratory data available. In those instances where the laboratory result does not agree with the clinical evaluation, additional tests should be performed accordingly. If the D-Dimer result is used to exclude DVT or PE, the recommended cutoff value is less than 230 ng/mL. The D-Dimer result should not be used alone to rule in DVT/PE, but should be used in conjunction with a clinical pretest probability (PTP)assessment model to exclude venous thromboembolism (VTE) in outpatients suspected of deep venous thrombosis (DVT) and pulmonary embolism (PE). LABORATORYOrdered By: SYSTEM SYSTEM on 05-04-2023 GFR/1.73 sq M.predicted among blacks MDRD (S/P/Bld) [Vol rate/Area] 66 ml/min/1.73sqm Invalid Interpretation Code AO Chemistry S Comment on above: Interpretive Data: GFR Population mean for , Non- Americans Ages 20-29 = 116 mL/min/1.73 sq.m. Ages 30-39 = 107 mL/min/1.73 sq.m. Ages 40-49 = 99 mL/min/1.73 sq.m. Ages 50-59 = 93 mL/min/1.73 sq.m. Ages 60-69 = 85 mL/min/1.73 sq.m. Ages 70+ = 75 mL/min/1.73 sq.m. Chronic Kidney Disease: Less than 60 mL/min/1.73 square meters End Stage Renal Disease: Less than 15 mL/min/1.73 square meters GFR/1.73 sq M.predicted among non-blacks MDRD (S/P/Bld) [Vol rate/Area] 54 ml/min/1.73sqm Invalid Interpretation Code AO Chemistry S Comment on above: Interpretive Data: GFR Population mean for , Non- Americans Ages 20-29 = 116 mL/min/1.73 sq.m. Ages 30-39 = 107 mL/min/1.73 sq.m. Ages 40-49 = 99 mL/min/1.73 sq.m. Ages 50-59 = 93 mL/min/1.73 sq.m. Ages 60-69 = 85 mL/min/1.73 sq.m. Ages 70+ = 75 mL/min/1.73 sq.m. Chronic Kidney Disease: Less than 60 mL/min/1.73 square meters End Stage Renal Disease: Less than 15 mL/min/1.73 square meters Hemoglobin (Bld) [Mass/Vol] 13.3 G/dL Normal 12.0 - 16.0 G/dL AO Workflow SS Monocyte distribution width Auto (Bld) [Entitic vol] 15.10 1 Normal 0.00 - 20.00 AO Workflow SS Comment on above: Result Comment: For ED adult patients suspected of sepsis, MDW<=20.0 does not rule out sepsis or risk of sepsis Platelets (Bld) [#/Vol] 286 103/mcL Normal 130 - 400 10^3/mcL AO Workflow SS RBC (Bld) [#/Vol] 4.34 106/mcL Normal 4.20 - 5.4 0 10^6/mcL AO Workflow SS Troponin I.cardiac DL <= 0.01 ng/mL [Mass/Vol] ng/L Normal 0.0 - 51.4 ng/L AO ADM SS Urea nitrogen/Creatinine [Mass ratio] 17 ratio Normal 7 - 27 ratio AO ADM SS WBC (Bld) [#/Vol] 12.5 103/mcL High 4.6 - 10.8 10^3/mcL AO Workflow SS TROPHSon 05-04-2023 Troponin I High Sensitivity <4.0 Normal 0.0-51.4 [facility] ([place]) Comment on above: Performed By: #### M DW, DIMER, ANEU, ADIFF, TROPHS, CBC, BMP, GFR #### Mandeep [address] [address] ANAIFSon 02-21-2023 Antinuclear Ab Screen Negative Normal Negative [facility] ([place]) Comment on above: Result Comment: Anti -nuclear antibody test is used as an aid in diagnosis of systemic autoimmune diseases. Where positive and clinically warranted, follow-up using disease-specific testing is recommended. Low positive titers are not uncommon with advanced age, certain chronic infections, and malignancies among others. Test methodology: Indirect fluorescence immunoassay (IFA) using HEp-2 cells. Performed By: [facility] Iden[facility]ve [address] [place] [address] Panman: Danilo Eason III, M.D. CLIA#: [id number] Performed By: #### A NAIFS ####[place] [address] CUSon 02-21-2023 Copper (s) 103 UG/DL Normal 80-155 [facility] ([place]) Comment on above: Result Comment: This test was developed and its performance characteristics determined by [facility]'s Tommy Akhtar [facility] [place] (-[facility]). It has not been cleared or approved by the FDA. -[facility] is regulated under CLIA as qualified to perform high-complexity testing. This test is used for clinical purposes. It should not be regarded as investigational or for research. Performed By: [facility] [place] [address] Panman: Danilo Eason III, M.D. CLIA#: [id number] Performed By: #### F T4, VIDH, ANEU, CBC, CRP, FERR, FE, TSH, COPPER, IBC, A1C, ADIFF ####Mandeep [address], [place] [address]#### B12, RF, FOL ####[place] [address] [place], [place] [id number] XR SPINE CERVICAL AP/LATon 1 04-23-2022 XR SPINE CERVICAL AP/LAT ORIGINAL EXAMINATION: 3 XRAY VIEWS OF THE CERVICAL SPINE 02/18/2023 8:49 am COMPARISON: None. HISTORY: ORDERING SYSTEM PROVIDED HISTORY: Reason for Exam: Chronic neck pain that is worsening and not improved with conservative outpatient measures. FINDINGS: The vertebral body heights, alignment and interspacing appear to be within normal limits. The dens and lateral masses appear unremarkable. Hypodensity of the base of the dens appears to be artifactual in nature (Mach line). The possibility of a previously healed dens injury is not excluded. Multilevel xxyj-gm-epcvssgm uncovertebral joint hypertrophy is seen worst at C5-C6 and C6-C7. There are no fractures or subluxations apparent. No prevertebral soft tissue swelling is seen. IMPRESSION: Umxd-vz-xhicpwin multilevel uncovertebral joint hypertrophy seen worst at the C5-C7 levels. Likely artifactual hypodensity of the base of the dens. Possible previously healed injury is not excluded. Interpreted by: Duane Calixto MD Preliminary Report By: Duane Calixto MD Electronically signed By Duane Calixto MD Dictated Date: 02/21/2023 11:07:09 AM Prelim Date: 02/21/2023 11:10:36 AM Sign Date: 02/21/2023 11:10:36 AM Ordering Provider: AVIVA AUSTIN Normal [facility] ([place]) RFon 02-20-2023 Rheumatoid Factor <6.0 Normal <=5.9 [facility] ([place]) Comment on above: Result Comment: RF I gM Antibody by Enzyme Immunoassay: Negative < or = 6 Positive > 6 A positive result indicates the presence of RF antibodies and suggests the possibility of rheumatoid arthritis. A negative result indicates no RF IgM antibody or levels below the negative cut-off of the assay. Results of this assay should be used in conjunction with clinical findings and other serological tests. These results were obtained with the [employer] QUANTA Lite RF IgM HENRY. RF IgM values obtained with different manufacturers' assay methods may not be used interchangeably. The magnitude of the reported IgM levels cannot be correlated to an endpoint titer. Performed By: #### F T4, VIDH, ANEU, CBC, CRP, FERR, FE, TSH, COPPER, IBC, A1C, ADIFF ####[place] [address]#### B12, RF, FOL ####[address] [address] .Auto Diffon 02-18-2023 Basophil, Absolute 0.0 10 3/mcL Normal 0.0-0.2 [facility] ([place]) Comment on above: Performed By: #### F T4, VIDH, ANEU, CBC, CRP, FERR, FE, TSH, COPPER, IBC, A1C, ADIFF ####[place] [address]#### B12, RF, FOL ####[place] [address] Basophils/100 WBC (Bld) 0.4 % Normal 0.0-2.5 [facility] ([place]) Comment on above: Performed By: #### F T4, VIDH, ANEU, CBC, CRP, FERR, FE, TSH, COPPER, IBC, A1C, ADIFF ####[place] [address]#### B12, RF, FOL ####[place] [address] Eosinophil, Absolute 0.2 10 3/mcL Normal 0.0-0.4 [facility] ([place]) Comment on above: Performed By: #### F T4, VIDH, ANEU, CBC, CRP, FERR, FE, TSH, COPPER, IBC, A1C, ADIFF ####[place] [address]#### B12, RF, FOL ####[address] [address] Eosinophils/100 WBC (Bld) 2.8 % Normal 0.0-7.0 [facility] ([place]) Comment on above: Performed By: #### F T4, VIDH, ANEU, CBC, CRP, FERR, FE, TSH, COPPER, IBC, A1C, ADIFF ####[place] [address]#### B12, RF, FOL ####[address] [address] Lymphocyte, Absolute 3.1 10 3/mcL Normal 0.8-3.9 [facility] ([place]) Comment on above: Performed By: #### F T4, VIDH, ANEU, CBC, CRP, FERR, FE, TSH, COPPER, IBC, A1C, ADIFF ####[place] [address]#### B12, RF, FOL ####[address] [address] Lymphocytes/100 WBC (Bld) 40.3 % Normal 10.0-50.0 [facility] ([place]) Comment on above: Performed By: #### F T4, VIDH, ANEU, CBC, CRP, FERR, FE, TSH, COPPER, IBC, A1C, ADIFF ####[place] [address]#### B12, RF, FOL ####[address] [address] Monocyte, Absolute 0.6 10 3/mcL Normal 0.2-1.0 [facility] ([place]) Comment on above: Performed By: #### F T4, VIDH, ANEU, CBC, CRP, FERR, FE, TSH, COPPER, IBC, A1C, ADIFF ####[place] [address]#### B12, RF, FOL ####[address] [address] Monocytes/100 WBC (Bld) 7.9 % Normal 1.7-13.0 [facility] ([place]) Comment on above: Performed By: #### F T4, VIDH, ANEU, CBC, CRP, FERR, FE, TSH, COPPER, IBC, A1C, ADIFF ####[place] [address]#### B12, RF, FOL ####[place] [address] Neutrophils/100 WBC (Bld) 48.6 % Normal 37.0-80.0 [facility] ([place]) Comment on above: Performed By: #### F T4, VIDH, ANEU, CBC, CRP, FERR, FE, TSH, COPPER, IBC, A1C, ADIFF ####[place] [address]#### B12, RF, FOL ####[place] [address] .NEUABSon 02-18-2023 Neutrophil, Absolute 3.7 10 3/mcL Normal 2.9-6.2 [facility] ([place]) Comment on above: Performed By: #### F T4, VIDH, ANEU, CBC, CRP, FERR, FE, TSH, COPPER, IBC, A1C, ADIFF ####[place] [address]#### B12, RF, FOL ####[place] [address] A1Con 02-18-2023 HbA1c (Bld) [Mass fraction] 5.5 % Normal 4.3-6.4 [facility] ([place]) Comment on above: Performed By: #### F T4, VIDH, ANEU, CBC, CRP, FERR, FE, TSH, COPPER, IBC, A1C, ADIFF ####[place] [address]#### B12, RF, FOL ####[place] [address] B12on 02-18-2023 Cobalamin (Vitamin B12) [Mass/Vol] 280 pg/mL Normal 211-911 [facility] ([place]) Comment on above: Performed By: #### F T4, VIDH, ANEU, CBC, CRP, FERR, FE, TSH, COPPER, IBC, A1C, ADIFF ####[place] [address]#### B12, RF, FOL ####[place] [address] CBCon 02-18-2023 Erythrocyte distribution width (RBC) [Ratio] 12.6 % Normal 11.5-14.5 [facility] ([place]) Comment on above: Performed By: #### F T4, VIDH, ANEU, CBC, CRP, FERR, FE, TSH, COPPER, IBC, A1C, ADIFF ####[place] [address]#### B12, RF, FOL ####[place] [address] Hematocrit (Bld) [Volume fraction] 43.3 % Normal 37.0-47.0 [facility] ([place]) Comment on above: Performed By: #### F T4, VIDH, ANEU, CBC, CRP, FERR, FE, TSH, COPPER, IBC, A1C, ADIFF ####[place] [address]#### B12, RF, FOL ####[place] [address] Hgb 14.5 G/dL Normal 12.0-16.0 [facility] ([place]) Comment on above: Performed By: #### F T4, VIDH, ANEU, CBC, CRP, FERR, FE, TSH, COPPER, IBC, A1C, ADIFF ####[place] [address]#### B12, RF, FOL ####[place] [address] MCH (RBC) [Entitic mass] 29.8 pg Normal 27.0-31.2 [facility] ([place]) Comment on above: Performed By: #### F T4, VIDH, ANEU, CBC, CRP, FERR, FE, TSH, COPPER, IBC, A1C, ADIFF ####[place] [address]#### B12, RF, FOL ####[place] [address] MCHC 33.4 G/dL Normal 33.0-37.0 [facility] ([place]) Comment on above: Performed By: #### F T4, VIDH, ANEU, CBC, CRP, FERR, FE, TSH, COPPER, IBC, A1C, ADIFF ####[place] [address]#### B12, RF, FOL ####[place] [address] MCV (RBC) [Entitic vol] 89.0 fL Normal 80.0-94.0 [facility] ([place]) Comment on above: Performed By: #### F T4, VIDH, ANEU, CBC, CRP, FERR, FE, TSH, COPPER, IBC, A1C, ADIFF ####[place] [address]#### B12, RF, FOL ####[place] [address] Platelet 306 10 3/mcL Normal 130-400 [facility] ([place]) Comment on above: Performed By: #### F T4, VIDH, ANEU, CBC, CRP, FERR, FE, TSH, COPPER, IBC, A1C, ADIFF ####[place] [address]#### B12, RF, FOL ####[place] [address] Platelet mean volume (Bld) [Entitic vol] 9.7 fL Normal 7.4-10.4 [facility] ([place]) Comment on above: Performed By: #### F T4, VIDH, ANEU, CBC, CRP, FERR, FE, TSH, COPPER, IBC, A1C, ADIFF ####[place] [address]#### B12, RF, FOL ####[place] [address] RBC 4.87 10 6/mcL Normal 4.20-5.40 [facility] ([place]) Comment on above: Performed By: #### F T4, VIDH, ANEU, CBC, CRP, FERR, FE, TSH, COPPER, IBC, A1C, ADIFF ####[place] [address]#### B12, RF, FOL ####[place] [address] WBC 7.7 10 3/mcL Normal 4.6-10.8 [facility] ([place]) Comment on above: Performed By: #### F T4, VIDH, ANEU, CBC, CRP, FERR, FE, TSH, COPPER, IBC, A1C, ADIFF ####[place] [address]#### B12, RF, FOL ####[place] [address] CRPon 02-18-2023 C-Reactive Protein 0.2 mg/dL Normal 0.0-0.3 [facility] ([place]) Comment on above: Performed By: #### F T4, VIDH, ANEU, CBC, CRP, FERR, FE, TSH, COPPER, IBC, A1C, ADIFF ####[place] [address]#### B12, RF, FOL ####[place] [address] FEon 02-18-2023 Iron [Mass/Vol] 109 ug/dL Normal 50-170 [facility] ([place]) Comment on above: Performed By: #### F T4, VIDH, ANEU, CBC, CRP, FERR, FE, TSH, COPPER, IBC, A1C, ADIFF ####[place] [address]#### B12, RF, FOL ####[place] [address] Sandra 02-18-2023 Ferritin [Mass/Vol] 65.0 ng/mL Normal 8.0-252.0 [facility] ([place]) Comment on above: Performed By: #### F T4, VIDH, ANEU, CBC, CRP, FERR, FE, TSH, COPPER, IBC, A1C, ADIFF ####[place] [address]#### B12, RF, FOL ####[place] [address] FOLon 02-18-2023 Folate 27.90 ng/mL High 5.38-24.00 [facility] ([place]) Comment on above: Performed By: #### F T4, VIDH, ANEU, CBC, CRP, FERR, FE, TSH, COPPER, IBC, A1C, ADIFF ####[address] [address]#### B12, RF, FOL ####[place] [address] FT4on 02-18-2023 Free T4 [Mass/Vol] 1.61 ng/dL High 0.76-1.46 [facility] ([place]) Comment on above: Performed By: #### F T4, VIDH, ANEU, CBC, CRP, FERR, FE, TSH, COPPER, IBC, A1C, ADIFF ####[place] [address]#### B12, RF, FOL ####[place] [address] IBCon 02-18-2023 TIBC 322 mcg/dL Normal 250-450 [facility] ([place]) Comment on above: Performed By: #### F T4, VIDH, ANEU, CBC, CRP, FERR, FE, TSH, COPPER, IBC, A1C, ADIFF ####[place] [address]#### B12, RF, FOL ####[place] [address] LABORATORYOrdered By: SYSTEM SYSTEM on 02-18-2023 25-hydroxyvitamin D3 [Mass/Vol] 22.2 ng/mL Invalid Interpretation Code AO ADM SS Comment on above: Interpretive Data: I nterpretive Values Based on Total 25(OH) Vitamin D: Deficient <20 ng/mL Insufficient 20 - <30 ng/mL Sufficient 30-100 ng/mL Basophil, Absolute 0.0 103/mcL Invalid Interpretation Code 0.0 - 0.2 10^3/mcL AO Workflow SS Basophils/100 WBC (Bld) 0.4 % Invalid Interpretation Code 0.0 - 2.5 % AO Workflow SS Cobalamin (Vitamin B12) [Mass/Vol] 280 pg/mL Invalid Interpretation Code 211 - 911 pg/mL ADM SS CRP [Mass/Vol] 0.2 mg/dL Invalid Interpretation Code 0.0 - 0.3 mg/dL AO ADM SS Eosinophil, Absolute 0.2 103/mcL Invalid Interpretation Code 0.0 - 0.4 10^3/mcL AO Workflow SS Eosinophils/100 WBC (Bld) 2.8 % Invalid Interpretation Code 0.0 - 7.0 % AO Workflow SS Erythrocyte distribution width (RBC) [Ratio] 12.6 % Invalid Interpretation Code 11.5 - 14.5 % AO Workflow SS Ferritin [Mass/Vol] 65.0 ng/mL Invalid Interpretation Code 8.0 - 252.0 ng/mL AO ADM SS Folate [Mass/Vol] 27.90 ng/mL Invalid Interpretation Code 5.38 - 24.00 ng/mL ADM SS Free T4 [Mass/Vol] 1.61 ng/dL Invalid Interpretation Code 0.76 - 1.46 ng/dL AO ADM SS HbA1c (Bld) [Mass fraction] 5.5 % Invalid Interpretation Code 4.3 - 6.4 % AO ADM SS Hematocrit (Bld) [Volume fraction] 43.3 % Invalid Interpretation Code 37.0 - 47.0 % AO Workflow SS Hemoglobin (Bld) [Mass/Vol] 14.5 G/dL Invalid Interpretation Code 12.0 - 16.0 G/dL AO Workflow SS Iron [Mass/Vol] 109 ug/dL Invalid Interpretation Code 50 - 170 mcg/dL AO ADM SS Iron binding capacity [Mass/Vol] 322 mcg/dL Invalid Interpretation Code 250 - 450 mcg/dL AO ADM SS Lymphocyte, Absolute 3.1 103/mcL Invalid Interpretation Code 0.8 - 3.9 10^3/mcL AO Workflow SS Lymphocytes/100 WBC (Bld) 40.3 % Invalid Interpretation Code 10.0 - 50.0 % AO Workflow SS MCH (RBC) [Entitic mass] 29.8 pg Invalid Interpretation Code 27.0 - 31.2 pg AO Workflow SS MCHC 33.4 G/dL Invalid Interpretation Code 33.0 - 37.0 G/dL AO Workflow SS MCV (RBC) [Entitic vol] 89.0 fL Invalid Interpretation Code 80.0 - 94.0 fL AO Workflow SS Monocyte, Absolute 0.6 103/mcL Invalid Interpretation Code 0.2 - 1.0 10^3/mcL AO Workflow SS Monocytes/100 WBC (Bld) 7.9 % Invalid Interpretation Code 1.7 - 13.0 % AO Workflow SS Neutrophil, Absolute 3.7 103/mcL Invalid Interpretation Code 2.9 - 6.2 10^3/mcL AO Workflow SS Neutrophils/100 WBC (Bld) 48.6 % Invalid Interpretation Code 37.0 - 80.0 % AO Workflow SS Platelet mean volume (Bld) [Entitic vol] 9.7 fL Invalid Interpretation Code 7.4 - 10.4 fL AO Workflow SS Platelets (Bld) [#/Vol] 306 103/mcL Invalid Interpretation Code 130 - 400 10^3/mcL AO Workflow SS RBC (Bld) [#/Vol] 4.87 106/mcL Invalid Interpretation Code 4.20 - 5.40 10^6/mcL AO Workflow SS TSH Qn 0.49 m[IU]/L Invalid Interpretation Code 0.36 - 3.74 mcIU/mL AO ADM SS WBC (Bld) [#/Vol] 7.7 103/mcL Invalid Interpretation Code 4.6 - 10.8 10^3/mcL AO Workflow SS TSHon 02-18-2023 TSH Qn 0.49 m[IU]/L Normal 0.36-3.74 [facility] ([place]) Comment on above: Performed By: #### F T4, VIDH, ANEU, CBC, CRP, FERR, FE, TSH, COPPER, IBC, A1C, ADIFF ####[address] [place], [place] [address]#### ARIN Thorpe, BALAJI ####[address] 02-18-2023 Vit. D 25-Hydroxy 22.2 ng/mL Normal [facility] ([place]) Comment on above: Result Comment: Inte rpretive Values Based on Total 25(OH) Vitamin D: Deficient <20 ng/mL Insufficient 20 - <30 ng/mL Sufficient 30-100 ng/mL Performed By: #### F T4, VIDH, ANEU, CBC, CRP, FERR, FE, TSH, COPPER, IBC, A1C, ADIFF ####[id number] [place], [place] [address]#### B12, RF, FOL ####[facility] [place] [id number] XR SPINE LUMBAR AP/LATon XR SPINE LUMBAR AP/LAT ORIGINAL EXAMINATION: 3 XRAY VIEWS OF THE LUMBAR SPINE11/13/2022 1:29 pm LUMBAR SPINE 2 or 3 VIEWS COMPARISON: None HISTORY: ORDERING SYSTEM PROVIDED HISTORY: Reason for Exam: low back pain FINDINGS: Mild levoconvex curvature noted. Straightening of the lumbar lordosis. Mild multilevel marginal disc osteophytes. Multilevel disc height loss is most prevalent at L2-3, L3-4 and L5-S1. Mild facet arthropathy is most prevalent in the lower lumbar spine. There is likely a Schmorl node deformity at the superior endplate of L3. IMPRESSION: No compression deformity or significant listhesis. Mild levoconvex curvature with mild degenerative changes Interpreted by: Favio Russ MD Preliminary Report By: Favio Russ MD Electronically signed By Favio Russ MD Dictated Date: 11/16/2022 8:39:04 AM Prelim Date: 11/16/2022 8:39:58 AM Sign Date: 11/16/2022 8:39:58 AM Ordering Provider: NOT PHYSICIAN Normal [facility] ([place]) Absolute lymphocyte countOrd ered By: ED PROVIDER on 04-28-2022 Lymphocytes Auto (Unsp spec) [#/Vol] 3.90 10*3/uL 0.83-4.51 [facility] Basophil percentageOrdered B y: ED PROVIDER on 04-28-2022 Basophil percentage 85 mg/dL 74-106 [facility] Basophil percentage 139 mmol/L 136-145 [facility] Basophil percentage 3.6 mmol/L 3.5-5.1 [facility] Basophil percentage 106 mmol/L 98-107 [facility] Basophils (Bld) [#/Vol] 9.3 10*3/uL 4.4-11.0 [facility] Basophils (Bld) [#/Vol] 4.5 10*3/uL 2.0-7.7 [facility] Basophils/100 WBC (Bld) 48.8 % 47-70 [facility] Basophils/100 WBC (Bld) 1.6 % 0-5 [facility] Basophils/100 WBC (Bld) 1.0 % 0-1 [facility] Basophil percentage 0 SEEN /hpf 0-5 [facility] Basophil percentageOrdered B y: Dr. Giron on 04-28-2022 Basophil percentage 8.1 g/dL 6.4-8.2 [facility] Basophil percentage 0.40 mg/dL 0.20-1.00 [facility] Bilirubin Test strip Ql (U)O rdered By: ED PROVIDER on 04-28-2022 Bilirubin Ql (U) Negative Negative [facility] Blood erythrocytes count (nu mber/volume)Ordered By: ED PROVIDER on 04-28-2022 RBC (Bld) [#/Vol] 4.98 10*6/uL 4.2-5.4 [facility] Blood hemoglobin measurement (mass/volume)Ordered By: ED PROVIDER on 04-28-2022 Hemoglobin (Bld) [Mass/Vol] 15.0 g/dL 12.0-15.0 [facility] Blood lymphocytes/100 leukoc ytesOrdered By: ED PROVIDER on 04-28-2022 Lymphocytes/100 WBC (Bld) 42.0 % 19-41 [facility] Blood monocytes/100 leukocyt esOrdered By: ED PROVIDER on 04-28-2022 Monocytes/100 WBC (Bld) 6.4 % 0-10 [facility] Blood platelet mean volumeOr dered By: ED PROVIDER on 04-28-2022 Platelet mean volume (Bld) [Entitic vol] 11.5 fL 6.2-12.0 [facility] Determination of erythrocyte mean corpuscular volume (MCV)Ordered By: ED PROVIDER on 04-28-2022 MCV (RBC) [Entitic vol] 88.2 fL 81-99 [facility] Direct bilirubinOrdered By: Dr. Giron on 04-28-2022 Bilirubin.direct [Mass/Vol] 0.11 mg/dL 0.00-0.30 [facility] Hematocrit Auto (Bld) [Volum e fraction]Ordered By: ED PROVIDER on 04-28-2022 Hematocrit (Bld) [Volume fraction] 43.9 % 37-47 [facility] Ketones Test strip Ql (U)Ord ered By: ED PROVIDER on 04-28-2022 Ketones Ql (U) Negative Negative [facility] MCHC Auto (RBC) [Mass/Vol]Or dered By: ED PROVIDER on 04-28-2022 MCHC (RBC) [Mass/Vol] 34.2 g/dL 32-36 [facility] Mucus LM Ql (Urine sed)Order ed By: ED PROVIDER on 04-28-2022 Mucus Ql (Urine sed) 0 SEEN /hpf [facility] Nitrite Test strip Ql (U)Ord ered By: ED PROVIDER on 04-28-2022 Nitrite Ql (U) Negative Negative [facility] No Panel InformationOrdered By: ED PROVIDER on 04-28-2022 30.1 pg 27.0-32.0 [facility] 12.4 % 11.6-14.6 [facility] 40.1 fl 35.1-43.9 [facility] 0.200 % 0.0-0.9 [facility] 0 % 0-5 [facility] 71 mL/min >60 [facility] 86 mL/min >60 [facility] 87.75 ml/min [facility] 12.8 RATIO 10-20 [facility] 29.0 mmol/L 21.0-32.0 [facility] 0-5 SEEN /hpf 0-5 [facility] No Panel InformationOrdered By: Dr. Giron on 04-28-2022 3.5 g/dL 2.2-4.2 [facility] 97 U/L 73-393 [facility] 45 U/L 45-117 [facility] 24 U/L 13-56 [facility] Platelets bldOrdered By: ED PROVIDER on 04-28-2022 Platelets (Bld) [#/Vol] 302 10*3/uL 150-450 [facility] Protein Test strip Ql (U)Ord ered By: ED PROVIDER on 04-28-2022 Protein Ql (U) Negative Negative [facility] Serum or plasma albumin anna urement (mass/volume)Ordered By: Dr. Giron on 04-28-2022 Albumin [Mass/Vol] 4.6 g/dL 3.2-5.0 [facility] Serum or plasma calcium anna urement (mass/volume)Ordered By: ED PROVIDER on 04-28-2022 Calcium [Mass/Vol] 8.9 mg/dL 8.5-10.1 [facility] Serum or plasma creatinine m easurement (mass/volume)Ordered By: ED PROVIDER on 04-28-2022 Creatinine [Mass/Vol] 0.94 mg/dL 0.55-1.02 [facility] Serum or plasma urea nitroge n measurement (mass/volume)Ordered By: ED PROVIDER on 04-28-2022 Urea nitrogen [Mass/Vol] 12 mg/dL 7-18 [facility] Squamous epithelial cells de tection in urine sediment by light microscopyOrdered By: ED PROVIDER on 04-28-2022 Epithelial cells.squamous LM Ql (Urine sed) 0-5 SEEN /hpf 5-10 [facility] Thin prep Papanicolaou smear with manual screeningOrdered By: Dr. Giron on 04-28-2022 Thin prep Papanicolaou smear with manual screening 13 U/L 15-37 [facility] Thin prep Papanicolaou smear with manual screeningOrdered By: ED PROVIDER on 04-28-2022 Thin prep Papanicolaou smear with manual screening 4 5-15 [facility] Urine blood detectionOrdered By: ED PROVIDER on 04-28-2022 RBC Ql (U) 25 /ul Negative [facility] RBC Ql (U) 0-5 SEEN /hpf 0-5 [facility] Urine clarityOrdered By: ED PROVIDER on 04-28-2022 Clarity (U) Clear Clear [facility] Urine color determinationOrd ered By: ED PROVIDER on 04-28-2022 Color (U) Yellow Yellow [facility] Urine glucose detectionOrder ed By: ED PROVIDER on 04-28-2022 Glucose Ql (U) Normal mg/dl Normal [facility] Urine leukocyte esterase det ection by dipstickOrdered By: ED PROVIDER on 04-28-2022 Leukocyte esterase Test strip Ql (U) Negative Negative [facility] Urine pHOrdered By: ED PROVI BRIJESH on 04-28-2022 pH (U) 7.0 [pH] 5.0 - 8.0 [facility] Urine sediment bacteria coun t by microscopy (number/high power field)Ordered By: ED PROVIDER on 04-28-2022 Bacteria LM.HPF (Urine sed) [#/Area] 0 /[HPF] None Seen [facility] Urine specific gravity measu rementOrdered By: ED PROVIDER on 04-28-2022 Specific gravity (U) [Rel density] 1.015 1.002-1.030 [facility] Urobilinogen Auto test strip Ql (U)Ordered By: ED PROVIDER on 04-28-2022 Urobilinogen Ql (U) Normal mg/dl Normal [facility] Absolute lymphocyte countOrd ered By: Dr. Garcia on 04-17-2022 Lymphocytes Auto (Unsp spec) [#/Vol] 2.74 10*3/uL 0.83-4.51 [facility] Basophil percentageOrdered B y: Dr. Garcia on 04-17-2022 Basophil percentage 78 mg/dL 74-106 [facility] Basophil percentage 7.3 g/dL 6.4-8.2 [facility] Basophil percentage 0.50 mg/dL 0.20-1.00 [facility] Basophil percentage 139 mmol/L 136-145 [facility] Basophil percentage 3.8 mmol/L 3.5-5.1 [facility] Basophil percentage 107 mmol/L 98-107 [facility] Basophils (Bld) [#/Vol] 6.3 10*3/uL 4.4-11.0 [facility] Basophils (Bld) [#/Vol] 3.0 10*3/uL 2.0-7.7 [facility] Basophils/100 WBC (Bld) 1.3 % 0-1 [facility] Basophils/100 WBC (Bld) 46.9 % 47-70 [facility] Basophils/100 WBC (Bld) 1.6 % 0-5 [facility] Basophil percentageon 2022 Bilirubin [Mass/Vol] 0.50 mg/dL 0.20-1.00 [facility] Work Phone: Comment on above: For patients on eltr ombopag therapy, use of Dimension [place] TBIL is not recommended. Chloride [Moles/Vol] 107 mmol/L 98-107 [facility] Work Phone: Eosinophils/100 WBC (Bld) 1.6 % 0-5 [facility] Work Phone: Glucose [Mass/Vol] 78 mg/dL 74-106 [facility] Work Phone: Neutrophils (Bld) [#/Vol] 3.0 10*3/uL 2.0-7.7 [facility] Work Phone: Neutrophils/100 WBC (Bld) 46.9 % 47-70 [facility] Work Phone: Potassium [Moles/Vol] 3.8 mmol/L 3.5-5.1 [facility] Work Phone: Protein [Mass/Vol] 7.3 g/dL 6.4-8.2 [facility] Work Phone: Sodium [Moles/Vol] 139 mmol/L 136-145 [facility] Work Phone: [phone] WBC (Bld) [#/Vol] 6.3 10*3/uL 4.4-11.0 [facility] Work Phone: Blood erythrocytes count (nu mber/volume)Ordered By: Dr. Garcia on 04-17-2022 RBC (Bld) [#/Vol] 4.84 10*6/uL 4.2-5.4 [facility] Blood hemoglobin measurement (mass/volume)Ordered By: Dr. Garcia on 04-17-2022 Hemoglobin (Bld) [Mass/Vol] 14.5 g/dL 12.0-15.0 [facility] Blood lymphocytes/100 leukoc ytesOrdered By: Dr. Garcia on 04-17-2022 Lymphocytes/100 WBC (Bld) 43.4 % 19-41 [facility] Blood monocytes/100 leukocyt esOrdered By: Dr. Garcia on 04-17-2022 Monocytes/100 WBC (Bld) 6.5 % 0-10 [facility] Blood platelet mean volumeOr dered By: Dr. Garcia on 04-17-2022 Platelet mean volume (Bld) [Entitic vol] 10.9 fL 6.2-12.0 [facility] Determination of erythrocyte mean corpuscular volume (MCV)Ordered By: Dr. Garcia on 04-17-2022 MCV (RBC) [Entitic vol] 88.6 fL 81-99 [facility] Hematocrit Auto (Bld) [Volum e fraction]Ordered By: Dr. Garcia on 04-17-2022 Hematocrit (Bld) [Volume fraction] 42.9 % 37-47 [facility] Laboratory - Chemistry and C hemistry - challengeon 04-17-2022 ALP [Catalytic activity/Vol] 44 U/L 45-117 [facility] Work Phone: ALT [Catalytic activity/Vol] 30 U/L 13-56 [facility] Work Phone: [phone] CO2 [Moles/Vol] 29.0 mmol/L 21.0-32.0 [facility] Work Phone: Globulin (S) [Mass/Vol] 3.4 g/dL 2.2-4.2 [facility] Work Phone: Urea nitrogen/Creatinine [Mass ratio] 22.9 mg/mg 10-20 [facility] Work Phone: Laboratory - Hematology and Cell countson 04-17-2022 Erythrocyte distribution width (RBC) [Entitic vol] 39.0 fL 35.1-43.9 [facility] Work Phone: Erythrocyte distribution width (RBC) [Ratio] 12.1 % 11.6-14.6 [facility] Work Phone: [phone] Immature granulocytes/100 WBC (Bld) 0.300 % 0.0-0.9 [facility] Work Phone: Comment on above: IG% - Immature Granu locytes (promyelocytes, myelocytes and metamyelocytes) > 1% indicates that a LEFT SHIFT is Present. MCH (RBC) [Entitic mass] 30.0 pg 27.0-32.0 [facility] Work Phone: Nucleated RBC/100 WBC (Bld) [Ratio] 0 % 0-5 [facility] Work Phone: MCHC Auto (RBC) [Mass/Vol]Or dered By: Dr. Garcia on 04-17-2022 MCHC (RBC) [Mass/Vol] 33.8 g/dL 32-36 [facility] No Panel Informationon 04-17 Estimated Creatinine Clearance Calc 99.38 ml/min [facility] Work Phone: Estimated GFR (MDRD) Amer 99 mL/min >60 [facility] Work Phone: Comment on above: GFR Calc Estimated GFR (MDRD) Non-Af Amer 82 mL/min >60 [facility] Work Phone: Comment on above: Non- GFR Calc Troponin I High Sensitivity < 3 pg/mL 3.0-54.0 [facility] Work Phone: Comment on above: Please Note: New [place] t Units and Gender Specific Reference Ranges. For more information see Policy Stat Procedure [place] High Sensitivity Troponin (TNIH) and attachments. No Panel InformationOrdered By: Dr. Garcia on 04-17-2022 30.0 pg 27.0-32.0 [facility] 12.1 % 11.6-14.6 [facility] 39.0 fl 35.1-43.9 [facility] 0.300 % 0.0-0.9 [facility] 0 % 0-5 [facility] 82 mL/min >60 [facility] 99 mL/min >60 [facility] 99.38 ml/min [facility] 22.9 RATIO 10-20 [facility] 3.4 g/dL 2.2-4.2 [facility] < 3 pg/mL 3.0-54.0 [facility] 44 U/L 45-117 [facility] 30 U/L 13-56 [facility] 29.0 mmol/L 21.0-32.0 [facility] Platelets bldOrdered By: Dr. Garcia on 04-17-2022 Platelets (Bld) [#/Vol] 315 10*3/uL 150-450 [facility] Serum or plasma albumin anna urement (mass/volume)Ordered By: Dr. Garcia on 04-17-2022 Albumin [Mass/Vol] 3.9 g/dL 3.2-5.0 [facility] Serum or plasma albumin/glob ulin mass ratioOrdered By: Dr. Garcia on 04-17-2022 Albumin/Globulin [Mass ratio] 1.1 {ratio} 0.9-2.4 [facility] Serum or plasma calcium anna urement (mass/volume)Ordered By: Dr. Garcia on 04-17-2022 Calcium [Mass/Vol] 8.4 mg/dL 8.5-10.1 [facility] Serum or plasma creatinine m easurement (mass/volume)Ordered By: Dr. Garcia on 04-17-2022 Creatinine [Mass/Vol] 0.83 mg/dL 0.55-1.02 [facility] Comment on above: The validity of the calculated GFR & GFRAA in patients over 70 years has not been determined. Clinical correlation is essential. Serum or plasma urea nitroge n measurement (mass/volume)Ordered By: Dr. Garcia on 04-17-2022 Urea nitrogen [Mass/Vol] 19 mg/dL 7-18 [facility] Thin prep Papanicolaou smear with manual screeningOrdered By: Dr. Garcia on 04-17-2022 Thin prep Papanicolaou smear with manual screening 15 U/L 15-37 [facility] Thin prep Papanicolaou smear with manual screening 3 5-15 [facility] Absolute lymphocyte countOrd ered By: ED PROVIDER on 04-16-2022 Lymphocytes Auto (Unsp spec) [#/Vol] 4.17 10*3/uL 0.83-4.51 [facility] Basophil percentageOrdered B y: ED PROVIDER on 04-16-2022 Basophil percentage 97 mg/dL 74-106 [facility] Basophil percentage 138 mmol/L 136-145 [facility] Basophil percentage 3.7 mmol/L 3.5-5.1 [facility] Basophil percentage 107 mmol/L 98-107 [facility] Basophils (Bld) [#/Vol] 10.1 10*3/uL 4.4-11.0 [facility] Basophils (Bld) [#/Vol] 5.1 10*3/uL 2.0-7.7 [facility] Basophils/100 WBC (Bld) 0.8 % 0-1 [facility] Basophils/100 WBC (Bld) 49.8 % 47-70 [facility] Basophils/100 WBC (Bld) 2.1 % 0-5 [facility] Basophil percentageon 2022 Chloride [Moles/Vol] 107 mmol/L 98-107 [facility] Work Phone: Eosinophils/100 WBC (Bld) 2.1 % 0-5 [facility] Work Phone: Glucose [Mass/Vol] 97 mg/dL 74-106 [facility] Work Phone: Neutrophils (Bld) [#/Vol] 5.1 10*3/uL 2.0-7.7 [facility] Work Phone: Neutrophils/100 WBC (Bld) 49.8 % 47-70 [facility] Work Phone: Potassium [Moles/Vol] 3.7 mmol/L 3.5-5.1 [facility] Work Phone: Sodium [Moles/Vol] 138 mmol/L 136-145 [facility] Work Phone: [phone] WBC (Bld) [#/Vol] 10.1 10*3/uL 4.4-11.0 [facility] Work Phone: [phone] Bilirubin [Mass/Vol] 0.40 mg/dL 0.20-1.00 [facility] Work Phone: Comment on above: For patients on eltr ombopag therapy, use of Dimension [place] TBIL is not recommended. Chloride [Moles/Vol] 103 mmol/L 98-107 [facility] Work Phone: Glucose [Mass/Vol] 95 mg/dL 74-106 [facility] Work Phone: Potassium [Moles/Vol] 4.0 mmol/L 3.5-5.1 [facility] Work Phone: Protein [Mass/Vol] 7.3 g/dL 6.4-8.2 [facility] Work Phone: Sodium [Moles/Vol] 139 mmol/L 136-145 [facility] Work Phone: Basophil percentageOrdered B y: Dr. Saldana on 04-16-2022 Basophil percentage 95 mg/dL 74-106 [facility] Basophil percentage 7.3 g/dL 6.4-8.2 [facility] Basophil percentage 0.40 mg/dL 0.20-1.00 [facility] Basophil percentage 139 mmol/L 136-145 [facility] Basophil percentage 4.0 mmol/L 3.5-5.1 [facility] Basophil percentage 103 mmol/L 98-107 [facility] Blood erythrocytes count (nu mber/volume)Ordered By: ED PROVIDER on 04-16-2022 RBC (Bld) [#/Vol] 4.78 10*6/uL 4.2-5.4 [facility] Blood hemoglobin measurement (mass/volume)Ordered By: ED PROVIDER on 04-16-2022 Hemoglobin (Bld) [Mass/Vol] 14.3 g/dL 12.0-15.0 [facility] Blood lymphocytes/100 leukoc ytesOrdered By: ED PROVIDER on 04-16-2022 Lymphocytes/100 WBC (Bld) 41.2 % 19-41 [facility] Blood monocytes/100 leukocyt esOrdered By: ED PROVIDER on 04-16-2022 Monocytes/100 WBC (Bld) 5.9 % 0-10 [facility] Blood platelet mean volumeOr dered By: ED PROVIDER on 04-16-2022 Platelet mean volume (Bld) [Entitic vol] 11.2 fL 6.2-12.0 [facility] Determination of erythrocyte mean corpuscular volume (MCV)Ordered By: ED PROVIDER on 04-16-2022 MCV (RBC) [Entitic vol] 87.7 fL 81-99 [facility] Hematocrit Auto (Bld) [Volum e fraction]Ordered By: ED PROVIDER on 04-16-2022 Hematocrit (Bld) [Volume fraction] 41.9 % 37-47 [facility] INR in Blood by Coagulation assayOrdered By: ED PROVIDER on 04-16-2022 INR Coag (Bld) [Relative time] 1.0 {INR} [facility] Laboratory - Chemistry and C hemistry - challengeon 04-16-2022 CO2 [Moles/Vol] 26.0 mmol/L 21.0-32.0 [facility] Work Phone: Urea nitrogen/Creatinine [Mass ratio] 24.6 mg/mg 10-20 [facility] Work Phone: ALP [Catalytic activity/Vol] 45 U/L 45-117 [facility] Work Phone: ALT [Catalytic activity/Vol] 30 U/L 13-56 [facility] Work Phone: CO2 [Moles/Vol] 28.0 mmol/L 21.0-32.0 [facility] Work Phone: Free T4 [Mass/Vol] 1.07 ng/dL 0.76-1.46 [facility] Work Phone: Globulin (S) [Mass/Vol] 3.4 g/dL 2.2-4.2 [facility] Work Phone: Urea nitrogen/Creatinine [Mass ratio] 17.3 mg/mg 10-20 [facility] Work Phone: Laboratory - Coagulationon 0 04-16-2022 PT Coag (PPP) [Time] 12.8 s 11.7-14.9 [facility] Work Phone: Laboratory - Hematology and Cell countson 04-16-2022 Erythrocyte distribution width (RBC) [Entitic vol] 38.9 fL 35.1-43.9 [facility] Work Phone: Erythrocyte distribution width (RBC) [Ratio] 12.0 % 11.6-14.6 [facility] Work Phone: Immature granulocytes/100 WBC (Bld) 0.200 % 0.0-0.9 [facility] Work Phone: Comment on above: IG% - Immature Granu locytes (promyelocytes, myelocytes and metamyelocytes) > 1% indicates that a LEFT SHIFT is Present. MCH (RBC) [Entitic mass] 29.9 pg 27.0-32.0 [facility] Work Phone: Nucleated RBC/100 WBC (Bld) [Ratio] 0 % 0-5 [facility] Work Phone: MCHC Auto (RBC) [Mass/Vol]Or dered By: ED PROVIDER on 04-16-2022 MCHC (RBC) [Mass/Vol] 34.1 g/dL 32-36 [facility] No Panel Informationon 04-16 Estimated Creatinine Clearance Calc 88.69 ml/min [facility] Work Phone: Estimated GFR (MDRD) Amer 86 mL/min >60 [facility] Work Phone: Comment on above: GFR Calc Estimated GFR (MDRD) Non-Af Amer 71 mL/min >60 [facility] Work Phone: Comment on above: Non- GFR Calc Troponin I High Sensitivity 3 pg/mL 3.0-54.0 [facility] Work Phone: Comment on above: Please Note: New [place] t Units and Gender Specific Reference Ranges. For more information see Policy Stat Procedure [place] High Sensitivity Troponin (TNIH) and attachments. Estimated GFR (MDRD) Amer 87 mL/min >60 [facility] Work Phone: Comment on above: GFR Calc Estimated GFR (MDRD) Non-Af Amer 72 mL/min >60 [facility] Work Phone: Comment on above: Non- GFR Calc Thyroid Stimulating Hormone (TSH) 4.19 uIU/mL 0.358-3.74 [facility] Work Phone: No Panel InformationOrdered By: ED PROVIDER on 04-16-2022 29.9 pg 27.0-32.0 [facility] 12.0 % 11.6-14.6 [facility] 38.9 fl 35.1-43.9 [facility] 0.200 % 0.0-0.9 [facility] 0 % 0-5 [facility] 12.8 SECONDS 11.7-14.9 [facility] 71 mL/min >60 [facility] 86 mL/min >60 [facility] 88.69 ml/min [facility] 24.6 RATIO 10-20 [facility] 3 pg/mL 3.0-54.0 [facility] 26.0 mmol/L 21.0-32.0 [facility] No Panel InformationOrdered By: Dr. Saldana on 04-16-2022 72 mL/min >60 [facility] 87 mL/min >60 [facility] 17.3 RATIO 10-20 [facility] 3.4 g/dL 2.2-4.2 [facility] 45 U/L 45-117 [facility] 30 U/L 13-56 [facility] 28.0 mmol/L 21.0-32.0 [facility] 4.19 uIU/mL 0.358-3.74 [facility] 1.07 ng/dL 0.76-1.46 [facility] Platelets bldOrdered By: ED PROVIDER on 04-16-2022 Platelets (Bld) [#/Vol] 349 10*3/uL 150-450 [facility] Serum or plasma albumin anna urement (mass/volume)Ordered By: Dr. Saldana on 04-16-2022 Albumin [Mass/Vol] 3.9 g/dL 3.2-5.0 [facility] Serum or plasma albumin/glob ulin mass ratioOrdered By: Dr. Saldana on 04-16-2022 Albumin/Globulin [Mass ratio] 1.1 {ratio} 0.9-2.4 [facility] Serum or plasma calcium anna urement (mass/volume)Ordered By: ED PROVIDER on 04-16-2022 Calcium [Mass/Vol] 8.5 mg/dL 8.5-10.1 [facility] Serum or plasma calcium anna urement (mass/volume)Ordered By: Dr. Saldana on 04-16-2022 Calcium [Mass/Vol] 8.6 mg/dL 8.5-10.1 [facility] Serum or plasma creatinine m easurement (mass/volume)Ordered By: ED PROVIDER on 04-16-2022 Creatinine [Mass/Vol] 0.93 mg/dL 0.55-1.02 [facility] Comment on above: The validity of the calculated GFR & GFRAA in patients over 70 years has not been determined. Clinical correlation is essential. Serum or plasma urea nitroge n measurement (mass/volume)Ordered By: ED PROVIDER on 04-16-2022 Urea nitrogen [Mass/Vol] 23 mg/dL 7- [facility] Serum or plasma urea nitroge n measurement (mass/volume)Ordered By: Dr. Saldana on 04-16-2022 Urea nitrogen [Mass/Vol] 16 mg/dL 7-18 [facility] Thin prep Papanicolaou smear with manual screeningOrdered By: ED PROVIDER on 04-16-2022 Thin prep Papanicolaou smear with manual screening 5 5-15 [facility] Thin prep Papanicolaou smear with manual screeningOrdered By: Dr. Saldana on 04-16-2022 Thin prep Papanicolaou smear with manual screening 17 U/L 15-37 [facility] Thin prep Papanicolaou smear with manual screening 8 5-15 [facility] Culture, urineOrdered By: Dr Nelly Vogel on 03-10-2022 Bacteria identified Cx Nom (U) Culture exhibits no growth. [facility] Basophil percentageOrdered B y: Brittney Verde on 02-22-2022 Basophil percentage 80 mg/dL 74-106 [facility] Basophil percentage 7.4 g/dL 6.4-8.2 [facility] Basophil percentage 0.50 mg/dL 0.20-1.00 [facility] Basophil percentage 139 mmol/L 136-145 [facility] Basophil percentage 3.8 mmol/L 3.5-5.1 [facility] Basophil percentage 102 mmol/L 98-107 [facility] Basophil percentageon 2021 Bilirubin [Mass/Vol] 0.50 mg/dL 0.20-1.00 [facility] Work Phone: Comment on above: For patients on eltr ombopag therapy, use of Dimension [place] TBIL is not recommended. Chloride [Moles/Vol] 102 mmol/L 98-107 [facility] Work Phone: Glucose [Mass/Vol] 80 mg/dL 74-106 [facility] Work Phone: Potassium [Moles/Vol] 3.8 mmol/L 3.5-5.1 [facility] Work Phone: Protein [Mass/Vol] 7.4 g/dL 6.4-8.2 [facility] Work Phone: Sodium [Moles/Vol] 139 mmol/L 136-145 [facility] Work Phone: Laboratory - Chemistry and C hemistry - challengeon 02-22-2022 ALP [Catalytic activity/Vol] 48 U/L 45-117 [facility] Work Phone: ALT [Catalytic activity/Vol] 26 U/L 13- [facility] Work Phone: CO2 [Moles/Vol] 28.0 mmol/L 21.0-32.0 [facility] Work Phone: Free T4 [Mass/Vol] 1.39 ng/dL 0.76-1.46 [facility] Work Phone: Globulin (S) [Mass/Vol] 3.4 g/dL 2.2-4.2 [facility] Work Phone: Urea nitrogen/Creatinine [Mass ratio] 10.5 mg/mg 10- [facility] Work Phone: No Panel Informationon 02-22 Estimated GFR (MDRD) Amer 75 mL/min >60 [facility] Work Phone: Comment on above: GFR Calc Estimated GFR (MDRD) Non-Af Amer 62 mL/min >60 [facility] Work Phone: Comment on above: Non- GFR Calc Thyroid Stimulating Hormone (TSH) 1.75 uIU/mL 0.358-3.74 [facility] Work Phone: No Panel InformationOrdered By: Brittney Verde on 02-22-2022 62 mL/min >60 [facility] 75 mL/min >60 [facility] 10.5 RATIO 10-20 [facility] 3.4 g/dL 2.2-4.2 [facility] 48 U/L 45-117 [facility] 26 U/L - [facility] 28.0 mmol/L 21.0-32.0 [facility] 1.75 uIU/mL 0.358-3.74 [facility] 1.39 ng/dL 0.76-1.46 [facility] Serum or plasma albumin anna urement (mass/volume)Ordered By: Brittney Verde on 02-22-2022 Albumin [Mass/Vol] 4.0 g/dL 3.2-5.0 [facility] Serum or plasma albumin/glob ulin mass ratioOrdered By: Brittney Verde on 02-22-2022 Albumin/Globulin [Mass ratio] 1.2 {ratio} 0.9-2.4 [facility] Serum or plasma calcium anna urement (mass/volume)Ordered By: Brittney Verde on 02-22-2022 Calcium [Mass/Vol] 8.3 mg/dL 8.5-10.1 [facility] Serum or plasma creatinine m easurement (mass/volume)Ordered By: Brittney Verde on 02-22-2022 Creatinine [Mass/Vol] 1.05 mg/dL 0.55-1.02 [facility] Comment on above: The validity of the calculated GFR & GFRAA in patients over 70 years has not been determined. Clinical correlation is essential. Serum or plasma urea nitroge n measurement (mass/volume)Ordered By: Brittney Verde on 02-22-2022 Urea nitrogen [Mass/Vol] 11 mg/dL 7-18 [facility] Thin prep Papanicolaou smear with manual screeningOrdered By: Brittney Verde on 02-22-2022 Thin prep Papanicolaou smear with manual screening 11 U/L 15-37 [facility] Thin prep Papanicolaou smear with manual screening 9 5-15 [facility] Basophil percentageOrdered B y: Magi Farley on 02-16-2022 Basophil percentage 0 SEEN /hpf 0-5 [facility] Bilirubin Test strip Ql (U)O rdered By: Magi Farley on 02-16-2022 Bilirubin Ql (U) Negative Negative [facility] Ketones Test strip Ql (U)Ord ered By: Magi Farley on 02-16-2022 Ketones Ql (U) 5 mg/dl Negative [facility] Mucus LM Ql (Urine sed)Order ed By: Magi Farley on 02-16-2022 Mucus Ql (Urine sed) 0 SEEN /hpf [facility] Nitrite Test strip Ql (U)Ord ered By: Magi Farley on 02-16-2022 Nitrite Ql (U) Negative Negative [facility] Protein Test strip Ql (U)Ord ered By: Magi Farley on 02-16-2022 Protein Ql (U) Negative Negative [facility] Squamous epithelial cells de tection in urine sediment by light microscopyOrdered By: Magi Farley on 02-16-2022 Epithelial cells.squamous LM Ql (Urine sed) 0-5 SEEN /hpf 5-10 [facility] Urine blood detectionOrdered By: aMgi Farley on 02-16-2022 RBC Ql (U) 50 /ul Negative [facility] RBC Ql (U) 0 SEEN /hpf 0-5 [facility] Urine clarityOrdered By: Steph Farley on 02-16-2022 Clarity (U) Sl. Cloudy Clear [facility] Urine color determinationOrd ered By: Magi Farley on 02-16-2022 Color (U) Yellow Yellow [facility] Urine glucose detectionOrder ed By: Magi Farley on 02-16-2022 Glucose Ql (U) Normal mg/dl Normal [facility] Urine leukocyte esterase det ection by dipstickOrdered By: Magi Farley on 02-16-2022 Leukocyte esterase Test strip Ql (U) Negative Negative [facility] Urine pHOrdered By: Magi nicholas on 02-16-2022 pH (U) 6.0 [pH] 5.0 - 8.0 [facility] Urine sediment bacteria coun t by microscopy (number/high power field)Ordered By: Magi Farley on 02-16-2022 Bacteria LM.HPF (Urine sed) [#/Area] 0 /[HPF] None Seen [facility] Urine specific gravity measu rementOrdered By: Magi Farley on 02-16-2022 Specific gravity (U) [Rel density] 1.020 1.002-1.030 [facility] Urobilinogen Auto test strip Ql (U)Ordered By: Magi Farley on 02-16-2022 Urobilinogen Ql (U) Normal mg/dl Normal [facility] Absolute lymphocyte countOrd ered By: Dr. Barillas on 02-06-2022 Lymphocytes Auto (Unsp spec) [#/Vol] 3.32 10*3/uL 0.83-4.51 [facility] Basophil percentageOrdered B y: Dr. Barillas on 02-06-2022 Basophil percentage 0 SEEN /hpf 0-5 [facility] Basophil percentage 103 mg/dL 74-106 [facility] Basophil percentage 139 mmol/L 136-145 [facility] Basophil percentage 3.5 mmol/L 3.5-5.1 [facility] Basophil percentage 105 mmol/L 98-107 [facility] Basophils (Bld) [#/Vol] 10.6 10*3/uL 4.4-11.0 [facility] Basophils (Bld) [#/Vol] 6.2 10*3/uL 2.0-7.7 [facility] Basophils/100 WBC (Bld) 1.0 % 0-1 [facility] Basophils/100 WBC (Bld) 58.4 % 47-70 [facility] Basophils/100 WBC (Bld) 1.8 % 0-5 [facility] Basophil percentageon 2021 Chloride [Moles/Vol] 105 mmol/L 98-107 [facility] Work Phone: Eosinophils/100 WBC (Bld) 1.8 % 0-5 [facility] Work Phone: Glucose [Mass/Vol] 103 mg/dL 74-106 [facility] Work Phone: Comment on above: Fasting Glucose resu lt from 100 to 125 mg/dL suggests IMPAIRED HOMEOSTASIS per A.D.A. criteria. Neutrophils (Bld) [#/Vol] 6.2 10*3/uL 2.0-7.7 [facility] Work Phone: Neutrophils/100 WBC (Bld) 58.4 % 47-70 [facility] Work Phone: Potassium [Moles/Vol] 3.5 mmol/L 3.5-5.1 [facility] Work Phone: Sodium [Moles/Vol] 139 mmol/L 136-145 [facility] Work Phone: WBC (Bld) [#/Vol] 10.6 10*3/uL 4.4-11.0 [facility] Work Phone: Bilirubin Test strip Ql (U)O rdered By: Dr. Barillas on 02-06-2022 Bilirubin Ql (U) Negative Negative [facility] Blood erythrocytes count (nu mber/volume)Ordered By: Dr. Barillas on 02-06-2022 RBC (Bld) [#/Vol] 4.73 10*6/uL 4.2-5.4 [facility] Blood hemoglobin measurement (mass/volume)Ordered By: Dr. Barillas on 02-06-2022 Hemoglobin (Bld) [Mass/Vol] 14.5 g/dL 12.0-15.0 [facility] Blood lymphocytes/100 leukoc ytesOrdered By: Dr. Barillas on 02-06-2022 Lymphocytes/100 WBC (Bld) 31.3 % 19-41 [facility] Blood monocytes/100 leukocyt esOrdered By: Dr. Barillas on 02-06-2022 Monocytes/100 WBC (Bld) 7.3 % 0-10 [facility] Blood platelet mean volumeOr dered By: Dr. Barillas on 02-06-2022 Platelet mean volume (Bld) [Entitic vol] 11.2 fL 6.2-12.0 [facility] Determination of erythrocyte mean corpuscular volume (MCV)Ordered By: Dr. Barillas on 02-06-2022 MCV (RBC) [Entitic vol] 88.4 fL 81-99 [facility] Hematocrit Auto (Bld) [Volum e fraction]Ordered By: Dr. Barillas on 02-06-2022 Hematocrit (Bld) [Volume fraction] 41.8 % 37-47 [facility] Ketones Test strip Ql (U)Ord ered By: Dr. Barillas on 02-06-2022 Ketones Ql (U) 5 mg/dl Negative [facility] Laboratory - Chemistry and C hemistry - challengeon 02-06-2022 CO2 [Moles/Vol] 27.0 mmol/L 21.0-32.0 [facility] Work Phone: Urea nitrogen/Creatinine [Mass ratio] 13.2 mg/mg 10-20 [facility] Work Phone: Laboratory - Hematology and Cell countson 02-06-2022 Erythrocyte distribution width (RBC) [Entitic vol] 39.9 fL 35.1-43.9 [facility] Work Phone: Erythrocyte distribution width (RBC) [Ratio] 12.3 % 11.6-14.6 [facility] Work Phone: Immature granulocytes/100 WBC (Bld) 0.200 % 0.0-0.9 [facility] Work Phone: Comment on above: IG% - Immature Granu locytes (promyelocytes, myelocytes and metamyelocytes) > 1% indicates that a LEFT SHIFT is Present. MCH (RBC) [Entitic mass] 30.7 pg 27.0-32.0 [facility] Work Phone: Nucleated RBC/100 WBC (Bld) [Ratio] 0 % 0-5 [facility] Work Phone: MCHC Auto (RBC) [Mass/Vol]Or dered By: Dr. Barillas on 02-06-2022 MCHC (RBC) [Mass/Vol] 34.7 g/dL 32-36 [facility] Mucus LM Ql (Urine sed)Order ed By: Dr. Barillas on 02-06-2022 Mucus Ql (Urine sed) 0 SEEN /hpf [facility] Nitrite Test strip Ql (U)Ord ered By: Dr. Barillas on 02-06-2022 Nitrite Ql (U) Negative Negative [facility] No Panel Informationon 02-06 Estimated Creatinine Clearance Calc 77.82 ml/min [facility] Work Phone: Estimated GFR (MDRD) Amer 75 mL/min >60 [facility] Work Phone: Comment on above: GFR Calc Estimated GFR (MDRD) Non-Af Amer 62 mL/min >60 [facility] Work Phone: Comment on above: Non- GFR Calc Thyroid Stimulating Hormone (TSH) 5.65 uIU/mL 0.358-3.74 [facility] Work Phone: No Panel InformationOrdered By: Dr. Barillas on 02-06-2022 30.7 pg 27.0-32.0 [facility] 12.3 % 11.6-14.6 [facility] 39.9 fl 35.1-43.9 [facility] 0.200 % 0.0-0.9 [facility] 0 % 0-5 [facility] 62 mL/min >60 [facility] 75 mL/min >60 [facility] 77.82 ml/min [facility] 13.2 RATIO 10-20 [facility] 27.0 mmol/L 21.0-32.0 [facility] No Panel InformationOrdered By: Dr. Mcnally on 02-06-2022 5.65 uIU/mL 0.358-3.74 [facility] Platelets bldOrdered By: Dr. Barillas on 02-06-2022 Platelets (Bld) [#/Vol] 312 10*3/uL 150-450 [facility] Protein Test strip Ql (U)Ord ered By: Dr. Barillas on 02-06-2022 Protein Ql (U) Negative Negative [facility] Serum or plasma calcium anna urement (mass/volume)Ordered By: Dr. Barillas on 02-06-2022 Calcium [Mass/Vol] 8.1 mg/dL 8.5-10.1 [facility] Serum or plasma creatinine m easurement (mass/volume)Ordered By: Dr. Barillas on 02-06-2022 Creatinine [Mass/Vol] 1.06 mg/dL 0.55-1.02 [facility] Comment on above: The validity of the calculated GFR & GFRAA in patients over 70 years has not been determined. Clinical correlation is essential. Serum or plasma urea nitroge n measurement (mass/volume)Ordered By: Dr. Barillas on 02-06-2022 Urea nitrogen [Mass/Vol] 14 mg/dL 7-18 [facility] Squamous epithelial cells de tection in urine sediment by light microscopyOrdered By: Dr. Barillas on 02-06-2022 Epithelial cells.squamous LM Ql (Urine sed) 0-5 SEEN /hpf 5-10 [facility] Thin prep Papanicolaou smear with manual screeningOrdered By: Dr. Barillas on 02-06-2022 Thin prep Papanicolaou smear with manual screening 7 5-15 [facility] Urine blood detectionOrdered By: Dr. Barillas on 02-06-2022 RBC Ql (U) 25 /ul Negative [facility] RBC Ql (U) 0 SEEN /hpf 0-5 [facility] Urine clarityOrdered By: Dr. Barillas on 02-06-2022 Clarity (U) Clear Clear [facility] Urine color determinationOrd ered By: Dr. Barillas on 02-06-2022 Color (U) Yellow Yellow [facility] Urine glucose detectionOrder ed By: Dr. Barillas on 02-06-2022 Glucose Ql (U) Normal mg/dl Normal [facility] Urine leukocyte esterase det ection by dipstickOrdered By: Dr. Barillas on 02-06-2022 Leukocyte esterase Test strip Ql (U) Negative Negative [facility] Urine pHOrdered By: Dr. Naz zabala on 02-06-2022 pH (U) 5.0 [pH] 5.0 - 8.0 [facility] Urine sediment bacteria coun t by microscopy (number/high power field)Ordered By: Dr. Barillas on 02-06-2022 Bacteria LM.HPF (Urine sed) [#/Area] 0 /[HPF] None Seen [facility] Urine specific gravity measu rementOrdered By: Dr. Barillas on 02-06-2022 Specific gravity (U) [Rel density] 1.020 1.002-1.030 [facility] Urobilinogen Auto test strip Ql (U)Ordered By: Dr. Barillas on 02-06-2022 Urobilinogen Ql (U) Normal mg/dl Normal [facility] Culture, urineOrdered By: Avery Valerio on 01-09-2022 Bacteria identified Cx Nom (U) Culture exhibits no growth. [facility] Basophil percentageOrdered B y: Mika Valerio on 01-07-2022 Basophil percentage 0 SEEN /hpf 0-5 [facility] Bilirubin Test strip Ql (U)O rdered By: Mika Valerio on 01-07-2022 Bilirubin Ql (U) Negative Negative [facility] Ketones Test strip Ql (U)Ord ered By: Mika Valerio on 01-07-2022 Ketones Ql (U) Negative Negative [facility] Mucus LM Ql (Urine sed)Order ed By: Mika Valerio on 01-07-2022 Mucus Ql (Urine sed) 0 SEEN /hpf [facility] Nitrite Test strip Ql (U)Ord ered By: Mika Valerio on 01-07-2022 Nitrite Ql (U) Negative Negative [facility] Protein Test strip Ql (U)Ord ered By: Mika Valerio on 01-07-2022 Protein Ql (U) Negative Negative [facility] Squamous epithelial cells de tection in urine sediment by light microscopyOrdered By: Mika Valerio on 01-07-2022 Epithelial cells.squamous LM Ql (Urine sed) 0 SEEN /hpf 5-10 [facility] Urine blood detectionOrdered By: Mika Valerio on 01-07-2022 RBC Ql (U) 10 /ul Negative [facility] RBC Ql (U) 0-5 SEEN /hpf 0-5 [facility] Urine clarityOrdered By: Cassie Valerio on 01-07-2022 Clarity (U) Sl. Cloudy Clear [facility] Urine color determinationOrd ered By: Mika Valerio on 01-07-2022 Color (U) Yellow Yellow [facility] Urine glucose detectionOrder ed By: Mika Valerio on 01-07-2022 Glucose Ql (U) Normal mg/dl Normal [facility] Urine leukocyte esterase det ection by dipstickOrdered By: Mika Valerio on 01-07-2022 Leukocyte esterase Test strip Ql (U) Negative Negative [facility] Urine pHOrdered By: Mika campa on 01-07-2022 pH (U) 8.0 [pH] 5.0 - 8.0 [facility] Urine sediment bacteria coun t by microscopy (number/high power field)Ordered By: Mika Valerio on 01-07-2022 Bacteria LM.HPF (Urine sed) [#/Area] 0 /[HPF] None Seen [facility] Urine specific gravity measu rementOrdered By: Mika Valerio on 01-07-2022 Specific gravity (U) [Rel density] 1.010 1.002-1.030 [facility] Urobilinogen Auto test strip Ql (U)Ordered By: Mika Valerio on 01-07-2022 Urobilinogen Ql (U) Normal mg/dl Normal [facility] Absolute lymphocyte countOrd ered By: Dr. Hill on 01-06-2022 Lymphocytes Auto (Unsp spec) [#/Vol] 3.10 10*3/uL 0.83-4.51 [facility] Basophil percentageOrdered B y: Dr. Hill on 01-06-2022 Basophil percentage 0 SEEN /hpf 0-5 [facility] Basophil percentage 89 mg/dL 74-106 [facility] Basophil percentage 8.1 g/dL 6.4-8.2 [facility] Basophil percentage 0.30 mg/dL 0.20-1.00 [facility] Basophil percentage 139 mmol/L 136-145 [facility] Basophil percentage 4.1 mmol/L 3.5-5.1 [facility] Basophil percentage 104 mmol/L 98-107 [facility] Basophils (Bld) [#/Vol] 9.8 10*3/uL 4.4-11.0 [facility] Basophils (Bld) [#/Vol] 5.7 10*3/uL 2.0-7.7 [facility] Basophils/100 WBC (Bld) 0.6 % 0-1 [facility] Basophils/100 WBC (Bld) 57.9 % 47-70 [facility] Basophils/100 WBC (Bld) 2.3 % 0-5 [facility] Basophil percentageon 2021 Bilirubin [Mass/Vol] 0.30 mg/dL 0.20-1.00 [facility] Work Phone: Comment on above: For patients on eltr ombopag therapy, use of Dimension [place] TBIL is not recommended. Chloride [Moles/Vol] 104 mmol/L 98-107 [facility] Work Phone: Eosinophils/100 WBC (Bld) 2.3 % 0-5 [facility] Work Phone: Glucose [Mass/Vol] 89 mg/dL 74-106 [facility] Work Phone: Neutrophils (Bld) [#/Vol] 5.7 10*3/uL 2.0-7.7 [facility] Work Phone: [phone] Neutrophils/100 WBC (Bld) 57.9 % 47-70 [facility] Work Phone: [phone] Potassium [Moles/Vol] 4.1 mmol/L 3.5-5.1 [facility] Work Phone: Protein [Mass/Vol] 8.1 g/dL 6.4-8.2 [facility] Work Phone: Sodium [Moles/Vol] 139 mmol/L 136-145 [facility] Work Phone: WBC (Bld) [#/Vol] 9.8 10*3/uL 4.4-11.0 [facility] Work Phone: Beta hCG serum qualOrdered B y: Dr. Hill on 01-06-2022 Beta HCG ( test) Ql Negative [facility] Bilirubin Test strip Ql (U)O rdered By: Dr. Hill on 01-06-2022 Bilirubin Ql (U) Negative Negative [facility] Blood erythrocytes count (nu mber/volume)Ordered By: Dr. Hill on 01-06-2022 RBC (Bld) [#/Vol] 4.79 10*6/uL 4.2-5.4 [facility] Blood hemoglobin measurement (mass/volume)Ordered By: Dr. Hill on 01-06-2022 Hemoglobin (Bld) [Mass/Vol] 14.5 g/dL 12.0-15.0 [facility] Blood lymphocytes/100 leukoc ytesOrdered By: Dr. Hill on 01-06-2022 Lymphocytes/100 WBC (Bld) 31.7 % 19-41 [facility] Blood monocytes/100 leukocyt esOrdered By: Dr. Hill on 01-06-2022 Monocytes/100 WBC (Bld) 7.2 % 0-10 [facility] Blood platelet mean volumeOr dered By: Dr. Hill on 01-06-2022 Platelet mean volume (Bld) [Entitic vol] 11.7 fL 6.2-12.0 [facility] Determination of erythrocyte mean corpuscular volume (MCV)Ordered By: Dr. Hill on 01-06-2022 MCV (RBC) [Entitic vol] 90.8 fL 81-99 [facility] Hematocrit Auto (Bld) [Volum e fraction]Ordered By: Dr. Hill on 01-06-2022 Hematocrit (Bld) [Volume fraction] 43.5 % 37-47 [facility] Ketones Test strip Ql (U)Ord ered By: Dr. Hill on 01-06-2022 Ketones Ql (U) Negative Negative [facility] Laboratory - Chemistry and C hemistry - challengeon 01-06-2022 ALP [Catalytic activity/Vol] 45 U/L 45-117 [facility] Work Phone: ALT [Catalytic activity/Vol] 28 U/L 13-56 [facility] Work Phone: [phone] CO2 [Moles/Vol] 28.0 mmol/L 21.0-32.0 [facility] Work Phone: Globulin (S) [Mass/Vol] 3.9 g/dL 2.2-4.2 [facility] Work Phone: Lipase [Catalytic activity/Vol] 102 U/L 73-393 [facility] Work Phone: [phone] Urea nitrogen/Creatinine [Mass ratio] 13.1 mg/mg 10-20 [facility] Work Phone: Laboratory - Hematology and Cell countson 01-06-2022 Erythrocyte distribution width (RBC) [Entitic vol] 41.7 fL 35.1-43.9 [facility] Work Phone: Erythrocyte distribution width (RBC) [Ratio] 12.4 % 11.6-14.6 [facility] Work Phone: Immature granulocytes/100 WBC (Bld) 0.300 % 0.0-0.9 [facility] Work Phone: Comment on above: IG% - Immature Granu locytes (promyelocytes, myelocytes and metamyelocytes) > 1% indicates that a LEFT SHIFT is Present. MCH (RBC) [Entitic mass] 30.3 pg 27.0-32.0 [facility] Work Phone: Nucleated RBC/100 WBC (Bld) [Ratio] 0 % 0-5 [facility] Work Phone: MCHC Auto (RBC) [Mass/Vol]Or dered By: Dr. Hill on 01-06-2022 MCHC (RBC) [Mass/Vol] 33.3 g/dL 32-36 [facility] Mucus LM Ql (Urine sed)Order ed By: Dr. Hill on 01-06-2022 Mucus Ql (Urine sed) 0 SEEN /hpf [facility] Nitrite Test strip Ql (U)Ord ered By: Dr. Hill on 01-06-2022 Nitrite Ql (U) Negative Negative [facility] No Panel Informationon 01-06 Estimated Creatinine Clearance Calc 83.32 ml/min [facility] Work Phone: Estimated GFR (MDRD) Amer 80 mL/min >60 [facility] Work Phone: Comment on above: GFR Calc Estimated GFR (MDRD) Non-Af Amer 67 mL/min >60 [facility] Work Phone: Comment on above: Non- GFR Calc Troponin I High Sensitivity 3 pg/mL 3.0-54.0 [facility] Work Phone: Comment on above: Please Note: New Venus t Units and Gender Specific Reference Ranges. For more information see Policy Stat Procedure [place] High Sensitivity Troponin (TNIH) and attachments. No Panel InformationOrdered By: Dr. Hill on 01-06-2022 30.3 pg 27.0-32.0 [facility] 12.4 % 11.6-14.6 [facility] 41.7 fl 35.1-43.9 [facility] 0.300 % 0.0-0.9 [facility] 0 % 0-5 [facility] 67 mL/min >60 [facility] 80 mL/min >60 [facility] 83.32 ml/min [facility] 13.1 RATIO 10-20 [facility] 3.9 g/dL 2.2-4.2 [facility] 102 U/L 73-393 [facility] 3 pg/mL 3.0-54.0 [facility] 45 U/L 45-117 [facility] 28 U/L 13-56 [facility] 28.0 mmol/L 21.0-32.0 [facility] Platelets bldOrdered By: Dr. Hill on 01-06-2022 Platelets (Bld) [#/Vol] 331 10*3/uL 150-450 [facility] Protein Test strip Ql (U)Ord ered By: Dr. Hill on 01-06-2022 Protein Ql (U) Negative Negative [facility] Serum or plasma albumin anna urement (mass/volume)Ordered By: Dr. Hill on 01-06-2022 Albumin [Mass/Vol] 4.2 g/dL 3.2-5.0 [facility] Serum or plasma albumin/glob ulin mass ratioOrdered By: Dr. iHll on 01-06-2022 Albumin/Globulin [Mass ratio] 1.1 {ratio} 0.9-2.4 [facility] Serum or plasma calcium anna urement (mass/volume)Ordered By: Dr. Hill on 01-06-2022 Calcium [Mass/Vol] 8.9 mg/dL 8.5-10.1 [facility] Serum or plasma creatinine m easurement (mass/volume)Ordered By: Dr. Hill on 01-06-2022 Creatinine [Mass/Vol] 0.99 mg/dL 0.55-1.02 [facility] Comment on above: The validity of the calculated GFR & GFRAA in patients over 70 years has not been determined. Clinical correlation is essential. Serum or plasma urea nitroge n measurement (mass/volume)Ordered By: Dr. Hill on 01-06-2022 Urea nitrogen [Mass/Vol] 13 mg/dL 7-18 [facility] Squamous epithelial cells de tection in urine sediment by light microscopyOrdered By: Dr. Hill on 01-06-2022 Epithelial cells.squamous LM Ql (Urine sed) 0-5 SEEN /hpf 5-10 [facility] Thin prep Papanicolaou smear with manual screeningOrdered By: Dr. Hill on 01-06-2022 Thin prep Papanicolaou smear with manual screening 14 U/L 15-37 [facility] Thin prep Papanicolaou smear with manual screening 7 5-15 [facility] Urine blood detectionOrdered By: Dr. Hill on 01-06-2022 RBC Ql (U) 25 /ul Negative [facility] RBC Ql (U) 0-5 SEEN /hpf 0-5 [facility] Urine clarityOrdered By: Dr. Hill on 01-06-2022 Clarity (U) Clear Clear [facility] Urine color determinationOrd ered By: Dr. Hill on 01-06-2022 Color (U) Yellow Yellow [facility] Urine glucose detectionOrder ed By: Dr. Hill on 01-06-2022 Glucose Ql (U) Normal mg/dl Normal [facility] Urine leukocyte esterase det ection by dipstickOrdered By: Dr. Hill on 01-06-2022 Leukocyte esterase Test strip Ql (U) Negative Negative [facility] Urine pHOrdered By: Dr. Sofia miranda on 01-06-2022 pH (U) 6.0 [pH] 5.0 - 8.0 [facility] Urine sediment bacteria coun t by microscopy (number/high power field)Ordered By: Dr. Hill on 01-06-2022 Bacteria LM.HPF (Urine sed) [#/Area] 0 /[HPF] None Seen [facility] Urine specific gravity measu rementOrdered By: Dr. Hill on 01-06-2022 Specific gravity (U) [Rel density] 1.015 1.002-1.030 [facility] Urobilinogen Auto test strip Ql (U)Ordered By: Dr. Hill on 01-06-2022 Urobilinogen Ql (U) Normal mg/dl Normal [facility] Basophil percentageon 2021 Basophil percentage < 10.0 umol/L 11-32 [facility] Work Phone: Erythrocyte sedimentation ra sweetie 12-15-2021 ESR (Bld) [Velocity] 6 mm/h 0-30 [facility] Work Phone: HIV 1 and HIV-2 antibody ass ay with HIV-1 p24 antigen detectionon 12-15-2021 HIV 1+2 Ab+HIV1 p24 Ag IA Ql Non-Reactive Nonreactive [facility] Work Phone: INR in Blood by Coagulation assayon 12-15-2021 INR Coag (Bld) [Relative time] 1.0 {INR} [facility] Work Phone: Laboratory - Coagulationon 0 12-15-2021 PT Coag (PPP) [Time] 13.0 s 11.7-14.9 [facility] Work Phone: No Panel Informationon 12-15 Ceruloplasmin 25.0 mg/dL 19.0-39.0 [facility] Work Phone: Haptoglobin 196 mg/dL 33-278 [facility] Work Phone: Comment on above: Performed at: [employer] [address] [id number] Director: Dwayne Johnson PhD, Phone: [phone] at: [employer] [address] [id number] Director: Yosvany Gonzalez MD, Phone: [phone] Hepatitis A IgM Antibody Negative Negative [facility] Work Phone: Hepatitis B Core IgM Antibody Negative Negative [facility] Work Phone: Hepatitis C Antibody (EIA) <0.1 s/co ratio 0.0-0.9 [facility] Work Phone: Hepatitis C Antibody Comment Comment . [facility] Work Phone: Comment on above: NegativeNot infected with HCV, unless recent infection issuspected or other evidence exists to indicate HCVinfection. Serum mitochondria antibody detectionon 12-15-2021 Mitochondria Ab Ql (S) <20.0 Units 0.0-20.0 [facility] Work Phone: Comment on above: Negative 0.0 - 20.0 Equivocal 20.1 - 24.9 Positive >24.9Mitochondrial (M2) Antibodies are found in 90-96% ofpatients with primary biliary cirrhosis.Performed at: [employer] [place], [place] [id number] Director: Dwayne Johnson PhD, Phone: [phone] Serum or plasma C reactive p rotein measurement (mass/volume)on 12-15-2021 CRP [Mass/Vol] mg/L 0.0-3.0 [facility] Work Phone: Comment on above: C-Reactive Protein ( CRP) provides useful information for thediagnosis, therapy and monitoring of inflammatory processesand associated diseases. For the evaluation of Relative Riskfor Cardiovascular Disease, a High Sensitivity CRP (HSCRP)should be ordered. Serum or plasma actin IgG an tibody assay (units/volume)on 12-15-2021 Actin IgG Qn 5 Units 0-19 [facility] Work Phone: Comment on above: Negative 0 - 19 Weak positive 20 - 30 Moderate to strong positive >30 Actin Antibodies are found in 52-85% of patients with autoimmune hepatitis or chronic active hepatitis and in 22% of patients with primary biliary cirrhosis. Serum or plasma [id number] protein tumor marker measurement (units/volume)on 12-15-2021 AFP.tumor marker Qn 2.9 ng/mL 0.0-6.4 [facility] Work Phone: Comment on above: [employer] El ectrochemiluminescence Immunoassay(ECLIA)Values obtained with different assay methods or kits cannotbe used interchangeably. Results cannot be interpreted asabsolute evidence of the presence or absence of malignantdisease.This test is not interpretable in females. Serum or plasma angiotensin converting enzyme measurement (enzymatic activity/volume)on 12-15-2021 Angiotensin converting enzyme [Catalytic activity/Vol] 16 U/L 14-82 [facility] Work Phone: Serum or plasma ferritin john surement (mass/volume)on 12-15-2021 Ferritin [Mass/Vol] 41 ng/mL 8-252 [facility] Work Phone: Serum or plasma hepatitis B virus surface antigen detection by immunoassayon 12-15-2021 HBV surface Ag IA Ql Negative Negative [facility] Work Phone: Thin prep Papanicolaou smear with manual screeningon 12-15-2021 Thin prep Papanicolaou smear with manual screening 110 ug/dL 80-158 [facility] Work Phone: Comment on above: Detection Limit = 5 Whole blood hemoglobin A1c/t otal hemoglobin ratio (mass fraction)on 12-15-2021 HbA1c (Bld) [Mass fraction] 5.7 % 3.8-5.6 [facility] Work Phone: Comment on above: Normal < 5.7 % Predi abetic 5.7 - 6.4 % Diabetic >or= 6.5 % Please note range changes. No Panel Informationon 12-10 Troponin I High Sensitivity 4 pg/mL 3.0-54.0 [facility] Work Phone: Comment on above: Please Note: New Venus t Units and Gender Specific Reference Ranges. For more information see Policy Stat Procedure [place] High Sensitivity Troponin (TNIH) and attachments. Absolute lymphocyte counton 12-09-2021 Lymphocytes Auto (Unsp spec) [#/Vol] 3.87 10*3/uL 0.83-4.51 [facility] Work Phone: Basophil percentageon 2021 Basophil percentage 0-5 SEEN /hpf 0-5 [facility] Work Phone: Basophils/100 WBC (Bld) 0.7 % 0-1 [facility] Work Phone: Bilirubin [Mass/Vol] 0.40 mg/dL 0.20-1.00 [facility] Work Phone: Comment on above: For patients on eltr ombopag therapy, use of Dimension [place] TBIL is not recommended. Chloride [Moles/Vol] 103 mmol/L 98-107 [facility] Work Phone: Eosinophils/100 WBC (Bld) 2.6 % 0-5 [facility] Work Phone: Glucose [Mass/Vol] 80 mg/dL 74-106 [facility] Work Phone: Neutrophils (Bld) [#/Vol] 3.4 10*3/uL 2.0-7.7 [facility] Work Phone: Neutrophils/100 WBC (Bld) 41.1 % 47-70 [facility] Work Phone: Potassium [Moles/Vol] 3.6 mmol/L 3.5-5.1 [facility] Work Phone: Protein [Mass/Vol] 7.5 g/dL 6.4-8.2 [facility] Work Phone: Sodium [Moles/Vol] 139 mmol/L 136-145 [facility] Work Phone: WBC (Bld) [#/Vol] 8.2 10*3/uL 4.4-11.0 [facility] Work Phone: Beta hCG serum qualon 2021 Beta HCG ( test) Ql Negative [facility] Work Phone: Bilirubin Test strip Ql (U)o n 12-09-2021 Bilirubin Ql (U) Negative Negative [facility] Work Phone: Blood erythrocytes count (nu mber/volume)on 12-09-2021 RBC (Bld) [#/Vol] 4.65 10*6/uL 4.2-5.4 [facility] Work Phone: Blood hemoglobin measurement (mass/volume)on 12-09-2021 Hemoglobin (Bld) [Mass/Vol] 13.9 g/dL 12.0-15.0 [facility] Work Phone: Blood lymphocytes/100 leukoc yteson 12-09-2021 Lymphocytes/100 WBC (Bld) 47.4 % 19-41 [facility] Work Phone: [phone] Blood monocytes/100 leukocyt eson 12-09-2021 Monocytes/100 WBC (Bld) 8.1 % 0-10 [facility] Work Phone: Blood platelet mean volumeon 12-09-2021 Platelet mean volume (Bld) [Entitic vol] 11.5 fL 6.2-12.0 [facility] Work Phone: [phone] Calcium oxalate crystals det ection in urine sediment by light microscopyon 12-09-2021 Calcium oxalate crystals LM Ql (Urine sed) 1+ /hpf [facility] Work Phone: Determination of erythrocyte mean corpuscular volume (MCV)on 12-09-2021 MCV (RBC) [Entitic vol] 89.7 fL 81-99 [facility] Work Phone: Direct bilirubinon 2 Bilirubin.direct [Mass/Vol] 0.10 mg/dL 0.00-0.30 [facility] Work Phone: Hematocrit Auto (Bld) [Volum e fraction]on 12-09-2021 Hematocrit (Bld) [Volume fraction] 41.7 % 37-47 [facility] Work Phone: Ketones Test strip Ql (U)on 12-09-2021 Ketones Ql (U) Negative Negative [facility] Work Phone: Laboratory - Chemistry and C hemistry - challengeon 12-09-2021 ALP [Catalytic activity/Vol] 41 U/L 45-117 [facility] Work Phone: ALT [Catalytic activity/Vol] 21 U/L 13-56 [facility] Work Phone: CO2 [Moles/Vol] 30.0 mmol/L 21.0-32.0 [facility] Work Phone: Globulin (S) [Mass/Vol] 3.4 g/dL 2.2-4.2 [facility] Work Phone: Lipase [Catalytic activity/Vol] 107 U/L 73-393 [facility] Work Phone: Urea nitrogen/Creatinine [Mass ratio] 14.1 mg/mg 10-20 [facility] Work Phone: Laboratory - Hematology and Cell countson 12-09-2021 Erythrocyte distribution width (RBC) [Entitic vol] 40.2 fL 35.1-43.9 [facility] Work Phone: Erythrocyte distribution width (RBC) [Ratio] 12.3 % 11.6-14.6 [facility] Work Phone: Immature granulocytes/100 WBC (Bld) 0.100 % 0.0-0.9 [facility] Work Phone: Comment on above: IG% - Immature Granu locytes (promyelocytes, myelocytes and metamyelocytes) > 1% indicates that a LEFT SHIFT is Present. MCH (RBC) [Entitic mass] 29.9 pg 27.0-32.0 [facility] Work Phone: Nucleated RBC/100 WBC (Bld) [Ratio] 0 % 0-5 [facility] Work Phone: MCHC Auto (RBC) [Mass/Vol]on 12-09-2021 MCHC (RBC) [Mass/Vol] 33.3 g/dL 32-36 [facility] Work Phone: Mucus LM Ql (Urine sed)on Mucus Ql (Urine sed) 0 SEEN /hpf [facility] Work Phone: Nitrite Test strip Ql (U)on 12-09-2021 Nitrite Ql (U) Negative Negative [facility] Work Phone: No Panel Informationon 12-09 Estimated Creatinine Clearance Calc 89.66 ml/min [facility] Work Phone: Estimated GFR (MDRD) Amer 88 mL/min >60 [facility] Work Phone: Comment on above: GFR Calc Estimated GFR (MDRD) Non-Af Amer 73 mL/min >60 [facility] Work Phone: Comment on above: Non- GFR Calc Platelets bldon 12-09-2021 Platelets (Bld) [#/Vol] 319 10*3/uL 150-450 [facility] Work Phone: Protein Test strip Ql (U)on 12-09-2021 Protein Ql (U) Negative Negative [facility] Work Phone: Serum or plasma albumin anna urement (mass/volume)on 12-09-2021 Albumin [Mass/Vol] 4.1 g/dL 3.2-5.0 [facility] Work Phone: Serum or plasma calcium anna urement (mass/volume)on 12-09-2021 Calcium [Mass/Vol] 9.0 mg/dL 8.5-10.1 [facility] Work Phone: Serum or plasma creatinine m easurement (mass/volume)on 12-09-2021 Creatinine [Mass/Vol] 0.92 mg/dL 0.55-1.02 [facility] Work Phone: Comment on above: The validity of the calculated GFR & GFRAA in patients over 70 years has not been determined. Clinical correlation is essential. Serum or plasma urea nitroge n measurement (mass/volume)on 12-09-2021 Urea nitrogen [Mass/Vol] 13 mg/dL 7-18 [facility] Work Phone: Squamous epithelial cells de tection in urine sediment by light microscopyon 12-09-2021 Epithelial cells.squamous LM Ql (Urine sed) 0-5 SEEN /hpf 5-10 [facility] Work Phone: Thin prep Papanicolaou smear with manual screeningon 12-09-2021 Thin prep Papanicolaou smear with manual screening 10 U/L 15-37 [facility] Work Phone: Thin prep Papanicolaou smear with manual screening 6 5-15 [facility] Work Phone: Urine blood detectionon 11-11 RBC Ql (U) 10 /ul Negative [facility] Work Phone: RBC Ql (U) 0-5 SEEN /hpf 0-5 [facility] Work Phone: Urine clarityon 12-09-2021 Clarity (U) Clear Clear [facility] Work Phone: Urine color determinationon 12-09-2021 Color (U) Straw Yellow [facility] Work Phone: Urine glucose detectionon Glucose Ql (U) Normal mg/dl Normal [facility] Work Phone: Urine leukocyte esterase det ection by dipstickon 12-09-2021 Leukocyte esterase Test strip Ql (U) 25 /ul Negative [facility] Work Phone: Urine pHon 12-09-2021 pH (U) 6.5 [pH] 5.0 - 8.0 [facility] Work Phone: Urine sediment bacteria coun t by microscopy (number/high power field)on 12-09-2021 Bacteria LM.HPF (Urine sed) [#/Area] RARE /hpf None Seen [facility] Work Phone: Urine specific gravity measu rementon 12-09-2021 Specific gravity (U) [Rel density] 1.010 1.002-1.030 [facility] Work Phone: Urobilinogen Auto test strip Ql (U)on 12-09-2021 Urobilinogen Ql (U) Normal mg/dl Normal [facility] Work Phone: No Panel Informationon 12-08 CA 125 Antigen 4.0 U/mL 0.0-38.1 [facility] Work Phone: Comment on above: [employer] El ectrochemiluminescence Immunoassay(ECLIA)Values obtained with different assay methods or kits cannotbe used interchangeably. Results cannot be interpreted asabsolute evidence of the presence or absence of malignantdisease.Performed at: [address] [id number] Director: Dwayne Johnson PhD, Phone: [phone] CA 19-9 Antigen 4 U/mL 0-35 [facility] Work Phone: Comment on above: [employer] El ectrochemiluminescence Immunoassay(ECLIA)Values obtained with different assay methods or kits cannotbe used interchangeably. Results cannot be interpreted asabsolute evidence of the presence or absence of malignantdisease. CA 19-9 Antigen Serial Monitoring Not Reportable [facility] Work Phone: Serum or plasma carcinoembry onic antigen measurement (mass/volume)on 12-08-2021 Carcinoembryonic Ag [Mass/Vol] 1.9 ng/mL 0.0-4.7 [facility] Work Phone: Comment on above: Nonsmokers <3.9 Smok ers <5.6[employer] Electrochemiluminescence Immunoassay(ECLIA)Values obtained with different assay methods or kitscannot be used interchangeably. Results cannot beinterpreted as absolute evidence of the presence orabsence of malignant disease. Thin prep Papanicolaou smear with manual screeningon 12-08-2021 Thin prep Papanicolaou smear with manual screening 154 U/L 84-246 [facility] Work Phone: Chlamydia trachomatis rRNA d etection by probe and target amplification methodon 11-27-2021 C. trachomatis rRNA ANDREI+probe Ql (Unsp spec) Negative Negative [facility] Work Phone: HIV 1 and HIV-2 antibody ass ay with HIV-1 p24 antigen detectionon 11-27-2021 HIV 1+2 Ab+HIV1 p24 Ag IA Ql Non-Reactive Nonreactive [facility] Work Phone: Laboratory - Microbiology an d Antimicrobial susceptibilityon 11-27-2021 N. gonorrhoeae DNA ANDREI+probe Ql (Unsp spec) Negative Negative [facility] Work Phone: Comment on above: Performed at: =[address] [id number] Director: Kathy Bejarano MD, Phone: [phone] No Panel Informationon 11-27 Hepatitis B Surface Antigen Non-Reactive Nonreactive [facility] Work Phone: Hepatitis C Antibody Non-Reactive Nonreactive [facility] Work Phone: Comment on above: Non Reactive: < 0.8 Equivocal: >/= 0.8 to < 1.0 Reactive: >/= 1.0The CDC recommends that a reactive/equivocal HCV antibody result be followed up by the HCV Nucleic Acid Amplificationtest (610369) Serum Treponema species anti body detectionon 11-27-2021 Treponema sp Ab Ql (S) Non-Reactive [facility] Work Phone: Basophil percentageon 2021 Basophil percentage 0 SEEN /hpf 0-5 [facility] Work Phone: Bilirubin Test strip Ql (U)o n 11-24-2021 Bilirubin Ql (U) Negative Negative [facility] Work Phone: Ketones Test strip Ql (U)on 11-24-2021 Ketones Ql (U) Negative Negative [facility] Work Phone: Mucus LM Ql (Urine sed)on Mucus Ql (Urine sed) 0 SEEN /hpf [facility] Work Phone: Nitrite Test strip Ql (U)on 11-24-2021 Nitrite Ql (U) Negative Negative [facility] Work Phone: Protein Test strip Ql (U)on 11-24-2021 Protein Ql (U) Negative Negative [facility] Work Phone: Squamous epithelial cells de tection in urine sediment by light microscopyon 11-24-2021 Epithelial cells.squamous LM Ql (Urine sed) 0-5 SEEN /hpf 5-10 [facility] Work Phone: Urine blood detectionon 11-09 RBC Ql (U) 25 /ul Negative [facility] Work Phone: RBC Ql (U) 0 SEEN /hpf 0-5 [facility] Work Phone: Urine clarityon 11-24-2021 Clarity (U) Sl. Cloudy Clear [facility] Work Phone: Urine color determinationon 11-24-2021 Color (U) Yellow Yellow [facility] Work Phone: Urine glucose detectionon Glucose Ql (U) Normal mg/dl Normal [facility] Work Phone: Urine leukocyte esterase det ection by dipstickon 11-24-2021 Leukocyte esterase Test strip Ql (U) Negative Negative [facility] Work Phone: Urine pHon 11-24-2021 pH (U) 6.0 [pH] 5.0 - 8.0 [facility] Work Phone: Urine sediment bacteria coun t by microscopy (number/high power field)on 11-24-2021 Bacteria LM.HPF (Urine sed) [#/Area] 1 /[HPF] None Seen [facility] Work Phone: Urine specific gravity measu rementon 11-24-2021 Specific gravity (U) [Rel density] 1.025 1.002-1.030 [facility] Work Phone: Urobilinogen Auto test strip Ql (U)on 11-24-2021 Urobilinogen Ql (U) Normal mg/dl Normal [facility] Work Phone: 24 hour urine 5-hydroxyindol eacetate measurement (mass/volume)on 10-29-2021 5-Hydroxyindoleacetate (24H U) [Mass/Vol] 4.9 mg/L Undefined [facility] Work Phone: Comment on above: This test was develo ped and its performance characteristicsdetermined by [employer]. It has not been cleared orapproved by the Food and Drug Administration. 24 hour urine 5-hydroxyindol eacetic acid (5-HIAA) measurement (mass/time)on 10-29-2021 5-Hydroxyindoleacetate (24H U) [Mass/Time] 3.2 mg/24 hr 0.0-14.9 [facility] Work Phone: Comment on above: Performed at: [address] [id number] Director: Yosvany Gonzalez MD, Phone: [phone] LABORATORYOrdered By: Jg Callejas on 10-29-2021 Albumin BCP dye [Mass/Vol] 4.4 G/dL Invalid Interpretation Code 3.5 - 5.0 G/dL AO ADM SS Albumin/Globulin [Mass ratio] 1.7 {ratio} Invalid Interpretation Code 1.1 - 2.5 ratio AO ADM SS ALP [Catalytic activity/Vol] 49 U/L Invalid Interpretation Code 40 - 135 U/L AO ADM SS ALT With P-5'-P [Catalytic activity/Vol] 19 U/L Invalid Interpretation Code 14 - 59 U/L AO ADM SS AST With P-5'-P [Catalytic activity/Vol] 9 U/L Invalid Interpretation Code 10 - 40 U/L AO ADM SS Bilirubin [Mass/Vol] 0.5 mg/dL Invalid Interpretation Code 0.2 - 1.0 mg/dL AO ADM SS Calcium [Mass/Vol] 8.3 mg/dL Invalid Interpretation Code 8.4 - 10.2 mg/dL AO ADM SS Chloride [Moles/Vol] 103 mmol/L Invalid Interpretation Code 98 - 107 mmol/L AO ADM SS CO2 [Moles/Vol] 28 mmol/L Invalid Interpretation Code 22 - 29 mmol/L AO ADM SS Creatinine [Mass/Vol] 0.98 mg/dL Invalid Interpretation Code 0.55 - 1.02 mg/dL AO ADM SS Electrolyte Balance 8.0 mEq/L Invalid Interpretation Code 4.0 - 15.0 mEq/L AO ADM SS Globulin 2.6 G/dL Invalid Interpretation Code AO ADM SS Glucose [Mass/Vol] 73 mg/dL Invalid Interpretation Code 70 - 105 mg/dL AO ADM SS Lipase [Catalytic activity/Vol] 77 U/L Invalid Interpretation Code 73 - 393 U/L AO ADM SS Potassium [Moles/Vol] 3.8 mmol/L Invalid Interpretation Code 3.5 - 5.1 mmol/L AO ADM SS Protein [Mass/Vol] 7.0 G/dL Invalid Interpretation Code 6.4 - 8.2 G/dL AO ADM SS Sodium [Moles/Vol] 139 mmol/L Invalid Interpretation Code 136 - 145 mmol/L AO ADM SS Urea nitrogen [Mass/Vol] 15 mg/dL Invalid Interpretation Code 7 - 18 mg/dL AO ADM SS Urea nitrogen/Creatinine [Mass ratio] 15 ratio Invalid Interpretation Code 7 - 27 ratio AO ADM SS LABORATORYOrdered By: Tamiko Blakely on 10-29-2021 Appearance (U) Clear (10/29/21 11:31 AM) Invalid Interpretation Code Clear AO Auto Urine SS Basophil, Absolute 0.1 103/mcL Invalid Interpretation Code 0.0 - 0.2 10^3/mcL AO Workflow SS Basophils/100 WBC (Bld) 1.4 % Invalid Interpretation Code 0.0 - 2.5 % AO Workflow SS Bilirubin Ql (U) Negative (10/29/21 11:31 AM) Invalid Interpretation Code Negative AO Auto Urine SS Color (U) Yellow (10/29/21 11:31 AM) Invalid Interpretation Code AO Auto Urine SS Eosinophil, Absolute 0.1 103/mcL Invalid Interpretation Code 0.0 - 0.4 10^3/mcL AO Workflow SS Eosinophils/100 WBC (Bld) 1.5 % Invalid Interpretation Code 0.0 - 7.0 % AO Workflow SS Erythrocyte distribution width (RBC) [Ratio] 12.5 % Invalid Interpretation Code 11.5 - 14.5 % AO Workflow SS Glucose Test strip (U) [Mass/Vol] Negative Invalid Interpretation Code Negativemg/d L AO Auto Urine SS HCG ( test) Ql Negative (10/29/21 11:31 AM) Invalid Interpretation Code AO Manual Urine SS Hematocrit (Bld) [Volume fraction] 40.0 % Invalid Interpretation Code 37.0 - 47.0 % AO Workflow SS Hemoglobin (Bld) [Mass/Vol] 13.8 G/dL Invalid Interpretation Code 12.0 - 16.0 G/dL AO Workflow SS Hemoglobin Auto test strip (U) [Mass/Vol] Trace *ABN* (10/29/21 11:31 AM) Invalid Interpretation Code Negative AO Auto Urine SS Ketones Ql (U) Negative Invalid Interpretation Code Negativemg/d L AO Auto Urine SS Lymphocyte, Absolute 3.9 103/mcL Invalid Interpretation Code 0.8 - 3.9 10^3/mcL AO Workflow SS Lymphocytes/100 WBC (Bld) 42.4 % Invalid Interpretation Code 10.0 - 50.0 % AO Workflow SS MCH (RBC) [Entitic mass] 30.5 pg Invalid Interpretation Code 27.0 - 31.2 pg AO Workflow SS MCHC 34.5 G/dL Invalid Interpretation Code 33.0 - 37.0 G/dL AO Workflow SS MCV (RBC) [Entitic vol] 88.2 fL Invalid Interpretation Code 80.0 - 94.0 fL AO Workflow SS Monocyte distribution width Auto (Bld) [Entitic vol] 16.03 Invalid Interpretation Code 0.00 - 20.00 AO Workflow SS Comment on above: Result Comment: For ED adult patients suspected of sepsis, MDW<=20.0 does not rule out sepsis or risk of sepsis Monocyte, Absolute 0.8 103/mcL Invalid Interpretation Code 0.2 - 1.0 10^3/mcL AO Workflow SS Monocytes/100 WBC (Bld) 8.5 % Invalid Interpretation Code 1.7 - 13.0 % AO Workflow SS Neutrophil, Absolute 4.3 103/mcL Invalid Interpretation Code 2.9 - 6.2 10^3/mcL AO Workflow SS Neutrophils/100 WBC (Bld) 46.2 % Invalid Interpretation Code 37.0 - 80.0 % AO Workflow SS Platelet mean volume (Bld) [Entitic vol] 9.8 fL Invalid Interpretation Code 7.4 - 10.4 fL AO Workflow SS Platelets (Bld) [#/Vol] 256 103/mcL Invalid Interpretation Code 130 - 400 10^3/mcL AO Workflow SS test (u) int Not detected Invalid Interpretation Code AO Manual Urine SS RBC (Bld) [#/Vol] 4.54 106/mcL Invalid Interpretation Code 4.20 - 5.40 10^6/mcL AO Workflow SS UA Leuk Est Negative (10/29/21 11:31 AM) Invalid Interpretation Code Negative AO Auto Urine SS UA Nitrite Negative (10/29/21 11:31 AM) Invalid Interpretation Code Negative AO Auto Urine SS UA pH 7.0 (10/29/21 11:31 AM) Invalid Interpretation Code 5.0 - 8.0 AO Auto Urine SS UA Protein Negative Invalid Interpretation Code Negativemg/d L AO Auto Urine SS UA Spec Grav 1.020 (10/29/21 11:31 AM) Invalid Interpretation Code 1.015-1.025 AO Auto Urine SS UA Specimen Type Clean Catch (10/29/21 11:31 AM) Invalid Interpretation Code AO Auto Urine SS UA Urobilinogen 0.2 E.U./dL Invalid Interpretation Code 0.2-1.0E.U./ dL AO Auto Urine SS WBC 9.2 103/mcL Invalid Interpretation Code 4.6 - 10.8 10^3/mcL AO Workflow SS LABORATORYOrdered By: SYSTEM SYSTEM on 10-29-2021 GFR 77 ml/min/1.73sqm Invalid Interpretation Code AO Chemistry S GFR Non- 64 ml/min/1.73sqm Invalid Interpretation Code AO Chemistry S No Panel Informationon 10-22 Stool Calprotectin <16 ug/g 0-120 [facility] Work Phone: Comment on above: Concentration Interp retation Follow-Up<16 - 50 ug/g Normal None>50 -120 ug/g Borderline Re-evaluate in 4-6 weeks >120 ug/g Abnormal Repeat as clinically indicatedPerformed at: [facility] [address] [id number] Director: Yosvany Gonzalez MD, Phone: [phone] Stool Pancreatic Elastase 370 >200 [facility] Work Phone: Comment on above: Result Units: ug Myranda st./g Severe Pancreatic Insufficiency: <100 Moderate Pancreatic Insufficiency: 100 - 200 Normal: >200Performed at: [facility] [address] [id number] Director: Yosvany Gonzalez MD, Phone: [phone] Albumin Elph [Mass/Vol]on Albumin [Mass/Vol] 4.2 g/dL 2.9-4.4 [facility] Work Phone: Atypical perinuclear antineu trophil cytoplasmic antibodies measurementon 10-20-2021 Neutrophil cytoplasmic Ab.perinuclear.atypica l IF (S) [Titer] <1:20 titer Neg:<1:20 [facility] Work Phone: Comment on above: The atypical pANCA p attern has been observed in asignificant percentage of patients with ulcerative colitis,primary sclerosing cholangitis and autoimmune hepatitis. Interpretation of serum or p lasma protein pattern by immunofixation (narrative resulton 10-20-2021 Protein Fractions Immunofixation Javy [Interp] See comment [facility] Work Phone: Comment on above: Result: Not Observed No Panel Informationon 10-20 Addendum Document Comment . [facility] Work Phone: Comment on above: Protein electrophore sis scan will follow via computer,mail, or compensation expert delivery. CA 19-9 Antigen 4 U/mL 0-35 [facility] Work Phone: Comment on above: [employer] El ectrochemiluminescence Immunoassay(ECLIA)Values obtained with different assay methods or kits cannotbe used interchangeably. Results cannot be interpreted asabsolute evidence of the presence or absence of malignantdisease. CA 19-9 Antigen Serial Monitoring See comment [facility] Work Phone: Comment on above: Scanned image report available in EMR Immunoglobulin E 104 IU/mL 6-495 [facility] Work Phone: Serum [id number] measu rement by electrophoresison 10-20-2021 Alpha 1 globulin Elph [Mass/Vol] 0.2 g/dL 0.0-0.4 [facility] Work Phone: Alpha 1 globulin Elph [Mass/Vol] 0.7 g/dL 0.4-1.0 [facility] Work Phone: Serum classic neutrophil cyt oplasmic antibody assay (units/volume)on 10-20-2021 Neutrophil cytoplasmic Ab.classic Qn (S) <1:20 titer Neg:<1:20 [facility] Work Phone: Serum globulin measurement ( mass/volume)on 10-20-2021 Globulin (S) [Mass/Vol] 2.7 g/dL 2.2-3.9 [facility] Work Phone: Serum or plasma IgA measurem ent (mass/volume)on 10-20-2021 IgA [Mass/Vol] 102 mg/dL 87-352 [facility] Work Phone: Serum or plasma IgG measurem ent (mass/volume)on 10-20-2021 IgG [Mass/Vol] 855 mg/dL [phone] [facility] Work Phone: Serum or plasma IgM measurem ent (mass/volume)on 10-20-2021 IgM [Mass/Vol] 61 mg/dL 26-217 [facility] Work Phone: Serum or plasma beta globuli n measurement by electrophoresis (mass/volume)on 10-20-2021 Beta globulin Elph [Mass/Vol] 1.0 g/dL 0.7-1.3 [facility] Work Phone: Serum or plasma carcinoembry onic antigen measurement (mass/volume)on 10-20-2021 Carcinoembryonic Ag [Mass/Vol] 2.1 ng/mL 0.0-4.7 [facility] Work Phone: Comment on above: Nonsmokers <3.9 Smok ers <5.6[employer] Electrochemiluminescence Immunoassay(ECLIA)Values obtained with different assay methods or kitscannot be used interchangeably. Results cannot beinterpreted as absolute evidence of the presence orabsence of malignant disease. Serum or plasma gamma globul in measurement by electrophoresis (mass/volume)on 10-20-2021 Gamma globulin Elph [Mass/Vol] 0.8 g/dL 0.4-1.8 [facility] Work Phone: Serum or plasma gastrin anna urement (mass/volume)on 10-20-2021 Gastrin [Mass/Vol] 40 pg/mL 0-115 [facility] Work Phone: Comment on above: Siemens ObjectLabsulite 200 0 Immunochemiluminometric assay (ICMA)Values obtained with different assay methods or kits cannotbe used interchangeably. Results cannot be interpreted asabsolute evidence of the presence or absence of malignantdisease.Performed at: [facility] [address] [id number] Director: Dwayne Johnson PhD, Phone: [phone] at: [employer] [address] [id number] Director: Yosvany Gonzalez MD, Phone: [phone] Serum or plasma immunoelectr ophoresis interpretation (nominal result)on 10-20-2021 Interpretation IEP [Interp] Comment . [facility] Work Phone: Comment on above: No monoclonality det ected. Serum perinuclear neutrophil cytoplasmic antibody titer by immunofluorescenceon 10-20-2021 Neutrophil cytoplasmic Ab.perinuclear IF (S) [Titer] <1:20 titer Neg:<1:20 [facility] Work Phone: Comment on above: The presence of posi tive fluorescence exhibiting P-ANCA orC-ANCA patterns alone is not specific for the diagnosis ofWegener's Granulomatosis (WG) or microscopic polyangiitis.Decisions about treatment should not be based solely onANCA IFA results. The [employer] ANCA Group Consensusrecommends follow up testing of positive sera with both WI-3 and MPO-ANCA enzyme immunoassays. As many as 5% serumsamples are positive only by EIA. Ref. AM J Clin [id number];111:507-513. Thin prep Papanicolaou smear with manual screeningon 10-20-2021 Thin prep Papanicolaou smear with manual screening 183 U/L 84-246 [facility] Work Phone: Thin prep Papanicolaou smear with manual screening 1.6 0.7-1.7 [facility] Work Phone: Total protein bloodon 2021 Protein [Mass/Vol] 6.9 g/dL 6.0-8.5 [facility] Work Phone: Laboratory - Chemistry and C hemistry - challengeon 10-15-2021 Free T4 [Mass/Vol] 1.44 ng/dL 0.76-1.46 [facility] Work Phone: No Panel Informationon 10-15 Thyroid Stimulating Hormone (TSH) 3.05 uIU/mL 0.358-3.74 [facility] Work Phone: Absolute lymphocyte counton 10-13-2021 Lymphocytes Auto (Unsp spec) [#/Vol] 3.57 10*3/uL 0.83-4.51 [facility] Work Phone: Basophil percentageon 2021 Basophils/100 WBC (Bld) 0.7 % 0-1 [facility] Work Phone: Bilirubin [Mass/Vol] 0.30 mg/dL 0.20-1.00 [facility] Work Phone: Comment on above: For patients on eltr ombopag therapy, use of [employer]ension [place] TBIL is not recommended. Chloride [Moles/Vol] 105 mmol/L 98-107 [facility] Work Phone: Eosinophils/100 WBC (Bld) 1.6 % 0-5 [facility] Work Phone: Glucose [Mass/Vol] 89 mg/dL 74-106 [facility] Work Phone: Neutrophils (Bld) [#/Vol] 4.8 10*3/uL 2.0-7.7 [facility] Work Phone: Neutrophils/100 WBC (Bld) 51.5 % 47-70 [facility] Work Phone: [phone] Potassium [Moles/Vol] 3.8 mmol/L 3.5-5.1 [facility] Work Phone: Protein [Mass/Vol] 7.2 g/dL 6.4-8.2 [facility] Work Phone: Sodium [Moles/Vol] 140 mmol/L 136-145 [facility] Work Phone: WBC (Bld) [#/Vol] 9.2 10*3/uL 4.4-11.0 [facility] Work Phone: Blood erythrocytes count (nu mber/volume)on 10-13-2021 RBC (Bld) [#/Vol] 4.49 10*6/uL 4.2-5.4 [facility] Work Phone: Blood hemoglobin measurement (mass/volume)on 10-13-2021 Hemoglobin (Bld) [Mass/Vol] 13.4 g/dL 12.0-15.0 [facility] Work Phone: Blood lymphocytes/100 leukoc yteson 10-13-2021 Lymphocytes/100 WBC (Bld) 38.7 % 19-41 [facility] Work Phone: Blood monocytes/100 leukocyt eson 10-13-2021 Monocytes/100 WBC (Bld) 7.2 % 0-10 [facility] Work Phone: Blood platelet mean volumeon 10-13-2021 Platelet mean volume (Bld) [Entitic vol] 11.4 fL 6.2-12.0 [facility] Work Phone: Determination of erythrocyte mean corpuscular volume (MCV)on 10-13-2021 MCV (RBC) [Entitic vol] 89.5 fL 81-99 [facility] Work Phone: Hematocrit Auto (Bld) [Volum e fraction]on 10-13-2021 Hematocrit (Bld) [Volume fraction] 40.2 % 37-47 [facility] Work Phone: Laboratory - Chemistry and C hemistry - challengeon 10-13-2021 ALP [Catalytic activity/Vol] 41 U/L 45-117 [facility] Work Phone: ALT [Catalytic activity/Vol] 20 U/L 13-56 [facility] Work Phone: CO2 [Moles/Vol] 28.0 mmol/L 21.0-32.0 [facility] Work Phone: Globulin (S) [Mass/Vol] 3.3 g/dL 2.2-4.2 [facility] Work Phone: Lipase [Catalytic activity/Vol] 177 U/L 73-393 [facility] Work Phone: Urea nitrogen/Creatinine [Mass ratio] 11.8 mg/mg 10-20 [facility] Work Phone: Laboratory - Hematology and Cell countson 10-13-2021 Erythrocyte distribution width (RBC) [Entitic vol] 40.2 fL 35.1-43.9 [facility] Work Phone: Erythrocyte distribution width (RBC) [Ratio] 12.2 % 11.6-14.6 [facility] Work Phone: Immature granulocytes/100 WBC (Bld) 0.300 % 0.0-0.9 [facility] Work Phone: Comment on above: IG% - Immature Granu locytes (promyelocytes, myelocytes and metamyelocytes) > 1% indicates that a LEFT SHIFT is Present. MCH (RBC) [Entitic mass] 29.8 pg 27.0-32.0 [facility] Work Phone: Nucleated RBC/100 WBC (Bld) [Ratio] 0 % 0-5 [facility] Work Phone: MCHC Auto (RBC) [Mass/Vol]on 10-13-2021 MCHC (RBC) [Mass/Vol] 33.3 g/dL 32-36 [facility] Work Phone: No Panel Informationon 10-13 Estimated Creatinine Clearance Calc 80.87 ml/min [facility] Work Phone: Estimated GFR (MDRD) Amer 78 mL/min >60 [facility] Work Phone: Comment on above: GFR Calc Estimated GFR (MDRD) Non-Af Amer 64 mL/min >60 [facility] Work Phone: Comment on above: Non- GFR Calc Platelets bldon 10-13-2021 Platelets (Bld) [#/Vol] 300 10*3/uL 150-450 [facility] Work Phone: Serum or plasma albumin anna urement (mass/volume)on 10-13-2021 Albumin [Mass/Vol] 3.9 g/dL 3.2-5.0 [facility] Work Phone: Serum or plasma albumin/glob ulin mass ratioon 10-13-2021 Albumin/Globulin [Mass ratio] 1.2 {ratio} 0.9-2.4 [facility] Work Phone: Serum or plasma calcium anna urement (mass/volume)on 10-13-2021 Calcium [Mass/Vol] 8.6 mg/dL 8.5-10.1 [facility] Work Phone: Serum or plasma creatinine m easurement (mass/volume)on 10-13-2021 Creatinine [Mass/Vol] 1.02 mg/dL 0.55-1.02 [facility] Work Phone: Comment on above: The validity of the calculated GFR & GFRAA in patients over 70 years has not been determined. Clinical correlation is essential. Serum or plasma urea nitroge n measurement (mass/volume)on 10-13-2021 Urea nitrogen [Mass/Vol] 12 mg/dL 7-18 [facility] Work Phone: Thin prep Papanicolaou smear with manual screeningon 10-13-2021 Thin prep Papanicolaou smear with manual screening 12 U/L 15-37 [facility] Work Phone: Thin prep Papanicolaou smear with manual screening 7 5-15 [facility] Work Phone: Serum or plasma calcium anna urement (mass/volume)on 08-05-2021 Calcium [Mass/Vol] 8.0 mg/dL 8.5-10.1 [facility] Work Phone: Bacteria identified Anaer cx Nom (Unsp spec)on 07-24-2021 Anaerobic Culture [facility] Work Phone: Bacteria identified Cx Nom ( Wound)on 07-24-2021 Wound Culture Proprionibacterium acnes [facility] Work Phone: Gram stain for investigation of transfusion reactionon 07-24-2021 Microscopic observation Gram stain Nom (Unsp spec) [facility] Work Phone: Basophil percentageon 2021 Basophil percentage 0 SEEN /hpf 0-5 [facility] Work Phone: Bilirubin Test strip Ql (U)o n 07-23-2021 Bilirubin Ql (U) Negative Negative [facility] Work Phone: Culture, urineon 07-23-2021 Bacteria identified Cx Nom (U) Positive [facility] Work Phone: Ketones Test strip Ql (U)on 07-23-2021 Ketones Ql (U) Negative Negative [facility] Work Phone: Mucus LM Ql (Urine sed)on Mucus Ql (Urine sed) 0 SEEN /hpf [facility] Work Phone: Nitrite Test strip Ql (U)on 07-23-2021 Nitrite Ql (U) Negative Negative [facility] Work Phone: Protein Test strip Ql (U)on 07-23-2021 Protein Ql (U) Negative Negative [facility] Work Phone: Squamous epithelial cells de tection in urine sediment by light microscopyon 07-23-2021 Epithelial cells.squamous LM Ql (Urine sed) 0 SEEN /hpf 5-10 [facility] Work Phone: Urine blood detectionon 07-10 RBC Ql (U) 10 /ul Negative [facility] Work Phone: RBC Ql (U) 0-5 SEEN /hpf 0-5 [facility] Work Phone: Urine clarityon 07-23-2021 Clarity (U) Sl. Cloudy Clear [facility] Work Phone: Urine color determinationon 07-23-2021 Color (U) Yellow Yellow [facility] Work Phone: Urine glucose detectionon Glucose Ql (U) Normal mg/dl Normal [facility] Work Phone: Urine leukocyte esterase det ection by dipstickon 07-23-2021 Leukocyte esterase Test strip Ql (U) Negative Negative [facility] Work Phone: Urine pHon 07-23-2021 pH (U) 7.0 [pH] 5.0 - 8.0 [facility] Work Phone: Urine sediment bacteria coun t by microscopy (number/high power field)on 07-23-2021 Bacteria LM.HPF (Urine sed) [#/Area] 0 /[HPF] None Seen [facility] Work Phone: Urine specific gravity measu rementon 07-23-2021 Specific gravity (U) [Rel density] 1.010 1.002-1.030 [facility] Work Phone: Urobilinogen Auto test strip Ql (U)on 07-23-2021 Urobilinogen Ql (U) Normal mg/dl Normal [facility] Work Phone: Absolute lymphocyte counton 07-01-2021 Lymphocytes Auto (Unsp spec) [#/Vol] 2.80 10*3/uL 0.83-4.51 [facility] Work Phone: Basophil percentageon 2021 Basophils/100 WBC (Bld) 0.3 % 0-1 [facility] Work Phone: Eosinophils/100 WBC (Bld) 0.5 % 0-5 [facility] Work Phone: Neutrophils (Bld) [#/Vol] 8.4 10*3/uL 2.0-7.7 [facility] Work Phone: Neutrophils/100 WBC (Bld) 67.7 % 47-70 [facility] Work Phone: WBC (Bld) [#/Vol] 12.4 10*3/uL 4.4-11.0 [facility] Work Phone: Blood erythrocytes count (nu mber/volume)on 07-01-2021 RBC (Bld) [#/Vol] 4.14 10*6/uL 4.2-5.4 [facility] Work Phone: Blood hemoglobin measurement (mass/volume)on 07-01-2021 Hemoglobin (Bld) [Mass/Vol] 12.9 g/dL 12.0-15.0 [facility] Work Phone: Blood lymphocytes/100 leukoc yteson 07-01-2021 Lymphocytes/100 WBC (Bld) 22.7 % 19-41 [facility] Work Phone: Blood monocytes/100 leukocyt eson 07-01-2021 Monocytes/100 WBC (Bld) 8.5 % 0-10 [facility] Work Phone: [phone] Blood platelet mean volumeon 07-01-2021 Platelet mean volume (Bld) [Entitic vol] 11.1 fL 6.2-12.0 [facility] Work Phone: Determination of erythrocyte mean corpuscular volume (MCV)on 07-01-2021 MCV (RBC) [Entitic vol] 86.7 fL 81-99 [facility] Work Phone: Hematocrit Auto (Bld) [Volum e fraction]on 07-01-2021 Hematocrit (Bld) [Volume fraction] 35.9 % 37-47 [facility] Work Phone: Laboratory - Hematology and Cell countson 07-01-2021 Erythrocyte distribution width (RBC) [Entitic vol] 38.9 fL 35.1-43.9 [facility] Work Phone: Erythrocyte distribution width (RBC) [Ratio] 12.2 % 11.6-14.6 [facility] Work Phone: Immature granulocytes/100 WBC (Bld) 0.300 % 0.0-0.9 [facility] [facility] Work Phone: Comment on above: IG% - Immature Granu locytes (promyelocytes, myelocytes and metamyelocytes) > 1% indicates that a LEFT SHIFT is Present. MCH (RBC) [Entitic mass] 31.2 pg 27.0-32.0 [facility] Work Phone: [phone] Nucleated RBC/100 WBC (Bld) [Ratio] 0 % 0-5 [facility] Work Phone: MCHC Auto (RBC) [Mass/Vol]on 07-01-2021 MCHC (RBC) [Mass/Vol] 35.9 g/dL 32-36 [facility] Work Phone: [phone] No Panel Informationon 07-01 Thyroid Stimulating Hormone (TSH) 11.60 uIU/mL 0.358-3.74 [facility] Work Phone: Platelets bldon 07-01-2021 Platelets (Bld) [#/Vol] 252 10*3/uL 150-450 [facility] Work Phone: Absolute lymphocyte counton 06-29-2021 Lymphocytes Auto (Unsp spec) [#/Vol] 3.81 10*3/uL 0.83-4.51 [facility] Work Phone: Amorphous sediment detection in urine sediment by light microscopyon 06-29-2021 Amorphous sediment LM Ql (Urine sed) 3+ [facility] Work Phone: Basophil percentageon 2021 Basophil percentage 0 SEEN /hpf 0-5 [facility] Work Phone: [phone] Basophils/100 WBC (Bld) 0.5 % 0-1 [facility] Work Phone: Bilirubin [Mass/Vol] 0.50 mg/dL 0.20-1.00 [facility] Work Phone: Comment on above: For patients on eltr ombopag therapy, use of Dimension [place] TBIL is not recommended. Chloride [Moles/Vol] 107 mmol/L 98-107 [facility] Work Phone: Eosinophils/100 WBC (Bld) 3.0 % 0-5 [facility] Work Phone: Glucose [Mass/Vol] 115 mg/dL 74-106 [facility] Work Phone: Comment on above: Fasting Glucose resu lt from 100 to 125 mg/dL suggests IMPAIRED HOMEOSTASIS per A.D.A. criteria. Neutrophils (Bld) [#/Vol] 6.1 10*3/uL 2.0-7.7 [facility] Work Phone: Neutrophils/100 WBC (Bld) 55.2 % 47-70 [facility] Work Phone: Potassium [Moles/Vol] 3.7 mmol/L 3.5-5.1 [facility] Work Phone: [phone] Protein [Mass/Vol] 7.6 g/dL 6.4-8.2 [facility] Work Phone: [phone] Sodium [Moles/Vol] 137 mmol/L 136-145 [facility] Work Phone: WBC (Bld) [#/Vol] 11.1 10*3/uL 4.4-11.0 [facility] Work Phone: [phone] Beta hCG serum qualon 2021 Beta HCG ( test) Ql Negative [facility] Work Phone: Bilirubin Test strip Ql (U)o n 06-29-2021 Bilirubin Ql (U) 1 mg/dL Negative [facility] Work Phone: Comment on above: COLOR OF URINE MAY A FFECT DIPSTICK RESULTS. Blood erythrocytes count (nu mber/volume)on 06-29-2021 RBC (Bld) [#/Vol] 4.79 10*6/uL 4.2-5.4 [facility] Work Phone: Blood hemoglobin measurement (mass/volume)on 06-29-2021 Hemoglobin (Bld) [Mass/Vol] 14.6 g/dL 12.0-15.0 [facility] Work Phone: Blood lymphocytes/100 leukoc yteson 06-29-2021 Lymphocytes/100 WBC (Bld) 34.3 % 19-41 [facility] Work Phone: Blood monocytes/100 leukocyt eson 06-29-2021 Monocytes/100 WBC (Bld) 6.8 % 0-10 [facility] Work Phone: Blood platelet mean volumeon 06-29-2021 Platelet mean volume (Bld) [Entitic vol] 11.2 fL 6.2-12.0 [facility] Work Phone: Determination of erythrocyte mean corpuscular volume (MCV)on 06-29-2021 MCV (RBC) [Entitic vol] 86.4 fL 81-99 [facility] Work Phone: Hematocrit Auto (Bld) [Volum e fraction]on 06-29-2021 Hematocrit (Bld) [Volume fraction] 41.4 % 37-47 [facility] Work Phone: Ketones Test strip Ql (U)on 06-29-2021 Ketones Ql (U) 5 mg/dl Negative [facility] Work Phone: Laboratory - Chemistry and C hemistry - challengeon 06-29-2021 ALP [Catalytic activity/Vol] 46 U/L 45-117 [facility] Work Phone: ALT [Catalytic activity/Vol] 23 U/L 13-56 [facility] Work Phone: CO2 [Moles/Vol] 25.0 mmol/L 21.0-32.0 [facility] Work Phone: Globulin (S) [Mass/Vol] 3.5 g/dL 2.2-4.2 [facility] Work Phone: Lipase [Catalytic activity/Vol] 108 U/L 73-393 [facility] Work Phone: Urea nitrogen/Creatinine [Mass ratio] 17.3 mg/mg 10-20 [facility] Work Phone: Laboratory - Hematology and Cell countson 06-29-2021 Erythrocyte distribution width (RBC) [Entitic vol] 38.6 fL 35.1-43.9 [facility] Work Phone: Erythrocyte distribution width (RBC) [Ratio] 12.1 % 11.6-14.6 [facility] Work Phone: Immature granulocytes/100 WBC (Bld) 0.200 % 0.0-0.9 [facility] Work Phone: Comment on above: IG% - Immature Granu locytes (promyelocytes, myelocytes and metamyelocytes) > 1% indicates that a LEFT SHIFT is Present. MCH (RBC) [Entitic mass] 30.5 pg 27.0-32.0 [facility] Work Phone: Nucleated RBC/100 WBC (Bld) [Ratio] 0 % 0-5 [facility] Work Phone: MCHC Auto (RBC) [Mass/Vol]on 06-29-2021 MCHC (RBC) [Mass/Vol] 35.3 g/dL 32-36 [facility] Work Phone: Mucus LM Ql (Urine sed)on Mucus Ql (Urine sed) 0 SEEN /hpf [facility] Work Phone: Nitrite Test strip Ql (U)on 06-29-2021 Nitrite Ql (U) Negative Negative [facility] Work Phone: No Panel Informationon 06-29 Estimated Creatinine Clearance Calc 90.54 ml/min [facility] Work Phone: Estimated GFR (MDRD) Amer 87 mL/min >60 [facility] Work Phone: Comment on above: GFR Calc Estimated GFR (MDRD) Non-Af Amer 72 mL/min >60 [facility] Work Phone: Comment on above: Non- GFR Calc Platelets bldon 06-29-2021 Platelets (Bld) [#/Vol] 338 10*3/uL 150-450 [facility] Work Phone: Protein Test strip Ql (U)on 06-29-2021 Protein Ql (U) 30 mg/dl Negative [facility] Work Phone: Serum or plasma albumin anna urement (mass/volume)on 06-29-2021 Albumin [Mass/Vol] 4.1 g/dL 3.2-5.0 [facility] Work Phone: Serum or plasma albumin/glob ulin mass ratioon 06-29-2021 Albumin/Globulin [Mass ratio] 1.2 {ratio} 0.9-2.4 [facility] Work Phone: Serum or plasma calcium anna urement (mass/volume)on 06-29-2021 Calcium [Mass/Vol] 8.3 mg/dL 8.5-10.1 [facility] Work Phone: Serum or plasma creatinine m easurement (mass/volume)on 06-29-2021 Creatinine [Mass/Vol] 0.92 mg/dL 0.55-1.02 [facility] Work Phone: Comment on above: The validity of the calculated GFR & GFRAA in patients over 70 years has not been determined. Clinical correlation is essential. Serum or plasma urea nitroge n measurement (mass/volume)on 06-29-2021 Urea nitrogen [Mass/Vol] 16 mg/dL 7-18 [facility] Work Phone: Squamous epithelial cells de tection in urine sediment by light microscopyon 06-29-2021 Epithelial cells.squamous LM Ql (Urine sed) 10-25 SEEN /hpf 5-10 [facility] Work Phone: Thin prep Papanicolaou smear with manual screeningon 06-29-2021 Thin prep Papanicolaou smear with manual screening 11 U/L 15-37 [facility] Work Phone: Thin prep Papanicolaou smear with manual screening 5 5-15 [facility] Work Phone: Urine blood detectionon 03-2 RBC Ql (U) 50 /ul Negative [facility] Work Phone: RBC Ql (U) 0 SEEN /hpf 0-5 [facility] Work Phone: Urine clarityon 06-29-2021 Clarity (U) Cloudy Clear [facility] Work Phone: Urine color determinationon 06-29-2021 Color (U) Yellow Yellow [facility] Work Phone: Urine glucose detectionon Glucose Ql (U) Normal mg/dl Normal [facility] Work Phone: Urine leukocyte esterase det ection by dipstickon 06-29-2021 Leukocyte esterase Test strip Ql (U) 100 /ul Negative [facility] Work Phone: Urine pHon 06-29-2021 pH (U) 5.0 [pH] 5.0 - 8.0 [facility] Work Phone: Urine sediment bacteria coun t by microscopy (number/high power field)on 06-29-2021 Bacteria LM.HPF (Urine sed) [#/Area] 0 /[HPF] None Seen [facility] Work Phone: Urine specific gravity measu rementon 06-29-2021 Specific gravity (U) [Rel density] 1.030 1.002-1.030 [facility] Work Phone: Urobilinogen Auto test strip Ql (U)on 06-29-2021 Urobilinogen Ql (U) 1 mg/dl Normal [facility] Work Phone: Basophil percentageon 2021 Basophil percentage < 0.2 AI 0.0-0.9 [facility] Work Phone: Erythrocyte sedimentation ra sweetie 06-16-2021 ESR (Bld) [Velocity] 5 mm/h 0-[address] [facility] [address] [facility] Work Phone: No Panel Informationon 06-16 Centromere B Antibody <0.2 AI 0.0-0.9 [facility] Work Phone: LACE MACHINE OPERATOR Antibody <0.2 AI 0.0-0.9 [facility] Work Phone: Serum DNA double strand anti body assay (units/volume)on 06-16-2021 DNA double strand Ab Qn (S) 1 [IU]/mL 0-9 [facility] Work Phone: Comment on above: Negative <5 Equivoca l 5 - 9 Positive >9 Serum Aleida-1 antibody assay (u nits/volume)on 06-16-2021 Aleida-1 extractable nuclear Ab Qn (S) <0.2 AI 0.0-0.9 [facility] Work Phone: Serum Scl-70 extractable nuc lear antibody assay (units/volume)on 06-16-2021 SCL-70 extractable nuclear Ab Qn (S) <0.2 AI 0.0-0.9 [facility] Work Phone: Serum Hardwick extractable nucl ear antibody detectionon 06-16-2021 Hardwick extractable nuclear Ab Ql (S) <0.2 AI 0.0-0.9 [facility] Work Phone: Serum or plasma C reactive p rotein measurement (mass/volume)on 06-16-2021 CRP [Mass/Vol] mg/L 0.0-3.0 [facility] Work Phone: Comment on above: C-Reactive Protein ( CRP) provides useful information for thediagnosis, therapy and monitoring of inflammatory processesand associated diseases. For the evaluation of Relative Riskfor Cardiovascular Disease, a High Sensitivity CRP (HSCRP)should be ordered. Laboratory - Chemistry and C hemistry - challengeon 06-12-2021 Free T4 [Mass/Vol] 1.17 ng/dL 0.76-1.46 [facility] Work Phone: No Panel Informationon 06-12 Thyroid Stimulating Hormone (TSH) 2.12 uIU/mL 0.358-3.74 [facility] Work Phone: Serum or plasma calcium anna urement (mass/volume)on 06-12-2021 Calcium [Mass/Vol] 9.3 mg/dL 8.5-10.1 [facility] Work Phone: Absolute lymphocyte counton 05-08-2021 Lymphocytes Auto (Unsp spec) [#/Vol] 2.74 10*3/uL 0.83-4.51 [facility] Work Phone: Basophil percentageon 2021 Basophils/100 WBC (Bld) 0.9 % 0-1 [facility] Work Phone: Bilirubin [Mass/Vol] 0.40 mg/dL 0.20-1.00 [facility] Work Phone: Comment on above: For patients on eltr ombopag therapy, use of Dimension [place] TBIL is not recommended. Chloride [Moles/Vol] 106 mmol/L 98-107 [facility] Work Phone: Eosinophils/100 WBC (Bld) 1.6 % 0-5 [facility] Work Phone: Glucose [Mass/Vol] 94 mg/dL 74-106 [facility] Work Phone: Neutrophils (Bld) [#/Vol] 5.3 10*3/uL 2.0-7.7 [facility] Work Phone: Neutrophils/100 WBC (Bld) 58.9 % 47-70 [facility] Work Phone: Potassium [Moles/Vol] 3.7 mmol/L 3.5-5.1 [facility] Work Phone: Protein [Mass/Vol] 7.6 g/dL 6.4-8.2 [facility] Work Phone: Sodium [Moles/Vol] 138 mmol/L 136-145 [facility] Work Phone: WBC (Bld) [#/Vol] 8.9 10*3/uL 4.4-11.0 [facility] Work Phone: Blood erythrocytes count (nu mber/volume)on 05-08-2021 RBC (Bld) [#/Vol] 4.92 10*6/uL 4.2-5.4 [facility] Work Phone: Blood hemoglobin measurement (mass/volume)on 05-08-2021 Hemoglobin (Bld) [Mass/Vol] 14.5 g/dL 12.0-15.0 [facility] Work Phone: Blood lymphocytes/100 leukoc yteson 05-08-2021 Lymphocytes/100 WBC (Bld) 30.6 % 19-41 [facility] Work Phone: Blood monocytes/100 leukocyt eson 05-08-2021 Monocytes/100 WBC (Bld) 7.9 % 0-10 [facility] Work Phone: Blood platelet mean volumeon 05-08-2021 Platelet mean volume (Bld) [Entitic vol] 11.4 fL 6.2-12.0 [facility] Work Phone: Determination of erythrocyte mean corpuscular volume (MCV)on 05-08-2021 MCV (RBC) [Entitic vol] 88.0 fL 81-99 [facility] Work Phone: Hematocrit Auto (Bld) [Volum e fraction]on 05-08-2021 Hematocrit (Bld) [Volume fraction] 43.3 % 37-47 [facility] Work Phone: Laboratory - Chemistry and C hemistry - challengeon 05-08-2021 ALP [Catalytic activity/Vol] 49 U/L 45-117 [facility] Work Phone: ALT [Catalytic activity/Vol] 30 U/L 13-56 [facility] Work Phone: CO2 [Moles/Vol] 25.0 mmol/L 21.0-32.0 [facility] Work Phone: Globulin (S) [Mass/Vol] 3.8 g/dL 2.2-4.2 [facility] Work Phone: Lipase [Catalytic activity/Vol] 76 U/L 73-393 [facility] Work Phone: Urea nitrogen/Creatinine [Mass ratio] 18.2 mg/mg 10-20 [facility] Work Phone: Laboratory - Hematology and Cell countson 05-08-2021 Erythrocyte distribution width (RBC) [Entitic vol] 40.7 fL 35.1-43.9 [facility] Work Phone: Erythrocyte distribution width (RBC) [Ratio] 12.5 % 11.6-14.6 [facility] Work Phone: Immature granulocytes/100 WBC (Bld) 0.100 % 0.0-0.9 [facility] Work Phone: Comment on above: IG% - Immature Granu locytes (promyelocytes, myelocytes and metamyelocytes) > 1% indicates that a LEFT SHIFT is Present. MCH (RBC) [Entitic mass] 29.5 pg 27.0-32.0 [facility] Work Phone: Nucleated RBC/100 WBC (Bld) [Ratio] 0 % 0-5 [facility] Work Phone: MCHC Auto (RBC) [Mass/Vol]on 05-08-2021 MCHC (RBC) [Mass/Vol] 33.5 g/dL 32-36 [facility] Work Phone: No Panel Informationon 05-08 Estimated Creatinine Clearance Calc 101.58 ml/min [facility] Work Phone: Estimated GFR (MDRD) Amer 100 mL/min >60 [facility] Work Phone: Comment on above: GFR Calc Estimated GFR (MDRD) Non-Af Amer 83 mL/min >60 [facility] Work Phone: Comment on above: Non- GFR Calc Troponin I High Sensitivity 3 pg/mL 3.0-54.0 [facility] Work Phone: Comment on above: Please Note: New [place] t Units and Gender Specific Reference Ranges. For more information see Policy Stat Procedure [place] High Sensitivity Troponin (TNIH) and attachments. Platelets bldon 05-08-2021 Platelets (Bld) [#/Vol] 313 10*3/uL 150-450 [facility] Work Phone: Serum or plasma albumin anna urement (mass/volume)on 05-08-2021 Albumin [Mass/Vol] 3.8 g/dL 3.2-5.0 [facility] Work Phone: Serum or plasma albumin/glob ulin mass ratioon 05-08-2021 Albumin/Globulin [Mass ratio] 1.0 {ratio} 0.9-2.4 [facility] Work Phone: Serum or plasma calcium anna urement (mass/volume)on 05-08-2021 Calcium [Mass/Vol] 8.5 mg/dL 8.5-10.1 [facility] Work Phone: Serum or plasma creatinine m easurement (mass/volume)on 05-08-2021 Creatinine [Mass/Vol] 0.82 mg/dL 0.55-1.02 [facility] Work Phone: Comment on above: The validity of the calculated GFR & GFRAA in patients over 70 years has not been determined. Clinical correlation is essential. Serum or plasma urea nitroge n measurement (mass/volume)on 05-08-2021 Urea nitrogen [Mass/Vol] 15 mg/dL 7-18 [facility] Work Phone: Thin prep Papanicolaou smear with manual screeningon 05-08-2021 Thin prep Papanicolaou smear with manual screening 7 U/L 15-37 [facility] Work Phone: Thin prep Papanicolaou smear with manual screening 7 5-15 [facility] Work Phone: Absolute lymphocyte counton 04-30-2021 Lymphocytes Auto (Unsp spec) [#/Vol] 1.94 10*3/uL 0.83-4.51 [facility] Work Phone: Basophil percentageon 2021 Basophils/100 WBC (Bld) 0.1 % 0-1 [facility] Work Phone: Bilirubin [Mass/Vol] 0.60 mg/dL 0.20-1.00 [facility] Work Phone: Comment on above: For patients on eltr ombopag therapy, use of Dimension [place] TBIL is not recommended. Chloride [Moles/Vol] 103 mmol/L 98-107 [facility] Work Phone: Eosinophils/100 WBC (Bld) 0.0 % 0-5 [facility] Work Phone: Glucose [Mass/Vol] 116 mg/dL 74-106 [facility] Work Phone: Comment on above: Fasting Glucose resu lt from 100 to 125 mg/dL suggests IMPAIRED HOMEOSTASIS per A.D.A. criteria. Neutrophils (Bld) [#/Vol] 10.5 10*3/uL 2.0-7.7 [facility] Work Phone: Neutrophils/100 WBC (Bld) 77.8 % 47-70 [facility] Work Phone: Potassium [Moles/Vol] 3.8 mmol/L 3.5-5.1 [facility] Work Phone: Protein [Mass/Vol] 7.1 g/dL 6.4-8.2 [facility] Work Phone: Sodium [Moles/Vol] 136 mmol/L 136-145 [facility] Work Phone: WBC (Bld) [#/Vol] 13.4 10*3/uL 4.4-11.0 [facility] Work Phone: Blood erythrocytes count (nu mber/volume)on 04-30-2021 RBC (Bld) [#/Vol] 4.27 10*6/uL 4.2-5.4 [facility] Work Phone: Blood hemoglobin measurement (mass/volume)on 04-30-2021 Hemoglobin (Bld) [Mass/Vol] 12.8 g/dL 12.0-15.0 [facility] Work Phone: Blood lymphocytes/100 leukoc yteson 04-30-2021 Lymphocytes/100 WBC (Bld) 14.4 % 19-41 [facility] Work Phone: Blood monocytes/100 leukocyt eson 04-30-2021 Monocytes/100 WBC (Bld) 7.4 % 0-10 [facility] Work Phone: Blood platelet mean volumeon 04-30-2021 Platelet mean volume (Bld) [Entitic vol] 11.9 fL 6.2-12.0 [facility] Work Phone: Determination of erythrocyte mean corpuscular volume (MCV)on 04-30-2021 MCV (RBC) [Entitic vol] 87.6 fL 81-99 [facility] Work Phone: Hematocrit Auto (Bld) [Volum e fraction]on 04-30-2021 Hematocrit (Bld) [Volume fraction] 37.4 % 37-47 [facility] Work Phone: Laboratory - Chemistry and C hemistry - challengeon 04-30-2021 ALP [Catalytic activity/Vol] 40 U/L 45-117 [facility] Work Phone: ALT [Catalytic activity/Vol] 24 U/L 13-56 [facility] Work Phone: CO2 [Moles/Vol] 25.0 mmol/L 21.0-32.0 [facility] Work Phone: Globulin (S) [Mass/Vol] 3.4 g/dL 2.2-4.2 [facility] Work Phone: Lipase [Catalytic activity/Vol] 55 U/L 73-393 [facility] Work Phone: Magnesium [Mass/Vol] 1.9 mg/dL 1.6-2.6 [facility] Work Phone: Urea nitrogen/Creatinine [Mass ratio] 15.9 mg/mg 10-20 [facility] Work Phone: Laboratory - Hematology and Cell countson 04-30-2021 Erythrocyte distribution width (RBC) [Entitic vol] 39.5 fL 35.1-43.9 [facility] Work Phone: Erythrocyte distribution width (RBC) [Ratio] 12.2 % 11.6-14.6 [facility] Work Phone: Immature granulocytes/100 WBC (Bld) 0.300 % 0.0-0.9 [facility] Work Phone: Comment on above: IG% - Immature Granu locytes (promyelocytes, myelocytes and metamyelocytes) > 1% indicates that a LEFT SHIFT is Present. MCH (RBC) [Entitic mass] 30.0 pg 27.0-32.0 [facility] Work Phone: Nucleated RBC/100 WBC (Bld) [Ratio] 0 % 0-5 [facility] Work Phone: MCHC Auto (RBC) [Mass/Vol]on 04-30-2021 MCHC (RBC) [Mass/Vol] 34.2 g/dL 32-36 [facility] Work Phone: No Panel Informationon 04-30 Estimated Creatinine Clearance Calc 88.61 ml/min [facility] Work Phone: Estimated GFR (MDRD) Amer 86 mL/min >60 [facility] Work Phone: Comment on above: GFR Calc Estimated GFR (MDRD) Non-Af Amer 71 mL/min >60 [facility] Work Phone: Comment on above: Non- GFR Calc Platelets bldon 04-30-2021 Platelets (Bld) [#/Vol] 306 10*3/uL 150-450 [facility] Work Phone: Serum or plasma albumin anna urement (mass/volume)on 04-30-2021 Albumin [Mass/Vol] 3.7 g/dL 3.2-5.0 [facility] Work Phone: Serum or plasma albumin/glob ulin mass ratioon 04-30-2021 Albumin/Globulin [Mass ratio] 1.1 {ratio} 0.9-2.4 [facility] Work Phone: Serum or plasma calcium anna urement (mass/volume)on 04-30-2021 Calcium [Mass/Vol] 8.1 mg/dL 8.5-10.1 [facility] Work Phone: Serum or plasma creatinine m easurement (mass/volume)on 04-30-2021 Creatinine [Mass/Vol] 0.94 mg/dL 0.55-1.02 [facility] Work Phone: Comment on above: The validity of the calculated GFR & GFRAA in patients over 70 years has not been determined. Clinical correlation is essential. Serum or plasma urea nitroge n measurement (mass/volume)on 04-30-2021 Urea nitrogen [Mass/Vol] 15 mg/dL 7-18 [facility] Work Phone: Thin prep Papanicolaou smear with manual screeningon 04-30-2021 Thin prep Papanicolaou smear with manual screening 16 U/L 15-37 [facility] Work Phone: Thin prep Papanicolaou smear with manual screening 8 5-15 [facility] Work Phone: Absolute lymphocyte counton 04-22-2021 Lymphocytes Auto (Unsp spec) [#/Vol] 3.10 10*3/uL 0.83-4.51 [facility] Work Phone: Basophil percentageon 2021 Basophils/100 WBC (Bld) 0.9 % 0-1 [facility] Work Phone: Bilirubin [Mass/Vol] 0.50 mg/dL 0.20-1.00 [facility] Work Phone: Comment on above: For patients on eltr ombopag therapy, use of Dimension [place] TBIL is not recommended. Chloride [Moles/Vol] 107 mmol/L 98-107 [facility] Work Phone: Eosinophils/100 WBC (Bld) 1.4 % 0-5 [facility] Work Phone: Glucose [Mass/Vol] 104 mg/dL 74-106 [facility] Work Phone: Comment on above: Fasting Glucose resu lt from 100 to 125 mg/dL suggests IMPAIRED HOMEOSTASIS per A.D.A. criteria.Please note revised GLUCOSE reference range effective 2017. Neutrophils (Bld) [#/Vol] 5.3 10*3/uL 2.0-7.7 [facility] Work Phone: [phone] Neutrophils/100 WBC (Bld) 56.7 % 47-70 [facility] Work Phone: Potassium [Moles/Vol] 3.6 mmol/L 3.5-5.1 [facility] Work Phone: Protein [Mass/Vol] 7.6 g/dL 6.4-8.2 [facility] Work Phone: Sodium [Moles/Vol] 139 mmol/L 136-145 [facility] Work Phone: WBC (Bld) [#/Vol] 9.3 10*3/uL 4.4-11.0 [facility] Work Phone: Blood erythrocytes count (nu mber/volume)on 04-22-2021 RBC (Bld) [#/Vol] 4.71 10*6/uL 4.2-5.4 [facility] Work Phone: Blood hemoglobin measurement (mass/volume)on 04-22-2021 Hemoglobin (Bld) [Mass/Vol] 13.8 g/dL 12.0-15.0 [facility] Work Phone: [phone] Blood lymphocytes/100 leukoc yteson 04-22-2021 Lymphocytes/100 WBC (Bld) 33.3 % 19-41 [facility] Work Phone: Blood monocytes/100 leukocyt eson 04-22-2021 Monocytes/100 WBC (Bld) 7.5 % 0-10 [facility] Work Phone: Blood platelet mean volumeon 04-22-2021 Platelet mean volume (Bld) [Entitic vol] 11.4 fL 6.2-12.0 [facility] Work Phone: Determination of erythrocyte mean corpuscular volume (MCV)on 04-22-2021 MCV (RBC) [Entitic vol] 87.3 fL 81-99 [facility] Work Phone: Hematocrit Auto (Bld) [Volum e fraction]on 04-22-2021 Hematocrit (Bld) [Volume fraction] 41.1 % 37-47 [facility] Work Phone: Laboratory - Chemistry and C hemistry - challengeon 04-22-2021 ALP [Catalytic activity/Vol] 45 U/L 45-117 [facility] Work Phone: ALT [Catalytic activity/Vol] 23 U/L 13-56 [facility] Work Phone: CO2 [Moles/Vol] 24.0 mmol/L 21.0-32.0 [facility] Work Phone: Globulin (S) [Mass/Vol] 3.7 g/dL 2.2-4.2 [facility] Work Phone: Lipase [Catalytic activity/Vol] 59 U/L 73-393 [facility] Work Phone: Urea nitrogen/Creatinine [Mass ratio] 12.3 mg/mg 10-20 [facility] Work Phone: Laboratory - Hematology and Cell countson 04-22-2021 Erythrocyte distribution width (RBC) [Entitic vol] 38.9 fL 35.1-43.9 [facility] Work Phone: Erythrocyte distribution width (RBC) [Ratio] 12.0 % 11.6-14.6 [facility] Work Phone: Immature granulocytes/100 WBC (Bld) 0.200 % 0.0-0.9 [facility] Work Phone: Comment on above: IG% - Immature Granu locytes (promyelocytes, myelocytes and metamyelocytes) > 1% indicates that a LEFT SHIFT is Present. MCH (RBC) [Entitic mass] 29.3 pg 27.0-32.0 [facility] Work Phone: Nucleated RBC/100 WBC (Bld) [Ratio] 0 % 0-5 [facility] Work Phone: MCHC Auto (RBC) [Mass/Vol]on 04-22-2021 MCHC (RBC) [Mass/Vol] 33.6 g/dL 32-36 [facility] Work Phone: No Panel Informationon 04-22 Estimated Creatinine Clearance Calc 84.99 ml/min [facility] Work Phone: Estimated GFR (MDRD) Amer 82 mL/min >60 [facility] Work Phone: Comment on above: GFR Calc Estimated GFR (MDRD) Non-Af Amer 68 mL/min >60 [facility] Work Phone: Comment on above: Non- GFR Calc Platelets bldon 04-22-2021 Platelets (Bld) [#/Vol] 351 10*3/uL 150-450 [facility] Work Phone: Serum or plasma albumin anna urement (mass/volume)on 04-22-2021 Albumin [Mass/Vol] 3.9 g/dL 3.2-5.0 [facility] Work Phone: Serum or plasma albumin/glob ulin mass ratioon 04-22-2021 Albumin/Globulin [Mass ratio] 1.1 {ratio} 0.9-2.4 [facility] Work Phone: Serum or plasma calcium anna urement (mass/volume)on 04-22-2021 Calcium [Mass/Vol] 8.4 mg/dL 8.5-10.1 [facility] Work Phone: Serum or plasma creatinine m easurement (mass/volume)on 04-22-2021 Creatinine [Mass/Vol] 0.98 mg/dL 0.55-1.02 [facility] Work Phone: Comment on above: The validity of the calculated GFR & GFRAA in patients over 70 years has not been determined. Clinical correlation is essential. Serum or plasma urea nitroge n measurement (mass/volume)on 04-22-2021 Urea nitrogen [Mass/Vol] 12 mg/dL 7-18 [facility] Work Phone: Thin prep Papanicolaou smear with manual screeningon 04-22-2021 Thin prep Papanicolaou smear with manual screening 12 U/L 15-37 [facility] Work Phone: Thin prep Papanicolaou smear with manual screening 8 5-15 [facility] Work Phone: Absolute lymphocyte counton 03-27-2021 Lymphocytes Auto (Unsp spec) [#/Vol] 3.15 10*3/uL 0.83-4.51 [facility] Work Phone: Basophil percentageon 2020 Chloride [Moles/Vol] 107 mmol/L 98-107 [facility] Work Phone: Eosinophils/100 WBC (Bld) 3.0 % 0-5 [facility] Work Phone: Glucose [Mass/Vol] 97 mg/dL 74-106 [facility] Work Phone: Comment on above: Please note revised GLUCOSE reference range effective 2017. Neutrophils (Bld) [#/Vol] 2.0 10*3/uL 2.0-7.7 [facility] Work Phone: Potassium [Moles/Vol] 4.4 mmol/L 3.5-5.1 [facility] Work Phone: Comment on above: Moderate Hemolysis, Result may be falsely increased. Sodium [Moles/Vol] 140 mmol/L 136-145 [facility] Work Phone: WBC (Bld) [#/Vol] 5.8 10*3/uL 4.4-11.0 [facility] Work Phone: Blood erythrocytes count (nu mber/volume)on 03-27-2021 RBC (Bld) [#/Vol] 5.01 10*6/uL 4.2-5.4 [facility] Work Phone: Blood hemoglobin measurement (mass/volume)on 03-27-2021 Hemoglobin (Bld) [Mass/Vol] 15.0 g/dL 12.0-15.0 [facility] Work Phone: Blood lymphocytes/100 leukoc yteson 03-27-2021 Lymphocytes/100 WBC (Bld) 54.8 % 19-41 [facility] Work Phone: Blood monocytes/100 leukocyt eson 03-27-2021 Monocytes/100 WBC (Bld) 6.3 % 0-10 [facility] Work Phone: Blood platelet mean volumeon 03-27-2021 Platelet mean volume (Bld) [Entitic vol] 11.6 fL 6.2-12.0 [facility] Work Phone: Determination of erythrocyte mean corpuscular volume (MCV)on 03-27-2021 MCV (RBC) [Entitic vol] 86.4 fL 81-99 [facility] Work Phone: Hematocrit Auto (Bld) [Volum e fraction]on 03-27-2021 Hematocrit (Bld) [Volume fraction] 43.3 % 37-47 [facility] Work Phone: Laboratory - Chemistry and C hemistry - challengeon 03-27-2021 CO2 [Moles/Vol] 26.0 mmol/L 21.0-32.0 [facility] Work Phone: Urea nitrogen/Creatinine [Mass ratio] 17.7 mg/mg 10-20 [facility] Work Phone: Laboratory - Hematology and Cell countson 03-27-2021 Basophils/100 WBC (Unsp spec) 0.9 % 0-1 [facility] Work Phone: Erythrocyte distribution width (RBC) [Entitic vol] 37.8 fL 35.1-43.9 [facility] Work Phone: Erythrocyte distribution width (RBC) [Ratio] 11.9 % 11.6-14.6 [facility] Work Phone: Immature granulocytes/100 WBC (Bld) 0.200 % 0.0-0.9 [facility] Work Phone: Comment on above: IG% - Immature Granu locytes (promyelocytes, myelocytes and metamyelocytes) > 1% indicates that a LEFT SHIFT is Present. MCH (RBC) [Entitic mass] 29.9 pg 27.0-32.0 [facility] Work Phone: Neutrophils/100 WBC (Bld) 34.8 % 47-70 [facility] Work Phone: Nucleated RBC/100 WBC (Bld) [Ratio] 0 % 0-5 [facility] Work Phone: MCHC Auto (RBC) [Mass/Vol]on 03-27-2021 MCHC (RBC) [Mass/Vol] 34.6 g/dL 32-36 [facility] Work Phone: No Panel Informationon 03-27 D-Dimer Quantitative (PE/DVT) <= 0.27 FEU/ug/m 0.27-0.49 [facility] Work Phone: Comment on above: NORMAL D-Dimer level (<0.50) indicates no DVT or PE. Estimated Creatinine Clearance Calc 97.99 ml/min [facility] Work Phone: Estimated GFR (MDRD) Amer 97 mL/min >60 [facility] Work Phone: Comment on above: GFR Calc Estimated GFR (MDRD) Non-Af Amer 80 mL/min >60 [facility] Work Phone: Comment on above: Non- GFR Calc Troponin I High Sensitivity 4 pg/mL 3.0-54.0 [facility] Work Phone: Comment on above: Please Note: New Venus t Units and Gender Specific Reference Ranges. For more information see Policy Stat Procedure [place] High Sensitivity Troponin (TNIH) and attachments. Platelets bldon 03-27-2021 Platelets (Bld) [#/Vol] 273 10*3/uL 150-450 [facility] Work Phone: Serum or plasma calcium anna urement (mass/volume)on 03-27-2021 Calcium [Mass/Vol] 7.9 mg/dL 8.5-10.1 [facility] Work Phone: Serum or plasma creatinine m easurement (mass/volume)on 03-27-2021 Creatinine [Mass/Vol] 0.85 mg/dL 0.55-1.02 [facility] Work Phone: Comment on above: The validity of the calculated GFR & GFRAA in patients over 70 years has not been determined. Clinical correlation is essential. Serum or plasma urea nitroge n measurement (mass/volume)on 03-27-2021 Urea nitrogen [Mass/Vol] 15 mg/dL 7-18 [facility] Work Phone: Thin prep Papanicolaou smear with manual screeningon 03-27-2021 Thin prep Papanicolaou smear with manual screening 7 5-15 [facility] Work Phone: Surgical Tissue Examon 11-14 Surgical Tissue Exam Test performed at [place] [address] NAME: ISABEL VILLEDA REQUESTING: SUSAN COLLIER MD FINAL DIAGNOSIS: A) STOMACH, ANTRUM, BIOPSY - MINIMAL CHRONIC GASTRITIS (SEE NOTE). B) COLON, RANDOM BIOPSIES - COLONIC MUCOSA WITH NO SIGNIFICANT HISTOPATHOLOGIC CHANGE. NOTE: In part A, a histologic pattern of gastritis associated with H. pylori is not identified. OPERATIVE PROCEDURE: Antrum, biopsy, colon, biopsy CLINICAL INFORMATION: Right upper quadrant pain [R10.11]; Altered bowel habits [R19.4]; Hysterectomy GROSS DESCRIPTION: A) Antrum biopsy (H. pylori and histology please) Received in formalin labeled antrum biopsy is an irregular-shaped segment of whyte-brown soft tissue measuring 0.4 x 0.1 x 0.1 cm. The specimen is totally submitted in formalin in one cassette. Levels x 2. B) Random colon biopsies Received in formalin labeled random colon biopsies are multiple irregular-shaped segments of whyte-brown soft tissue aggregating to 2.2 x 0.3 x 0.1 cm. The specimen is totally submitted in formalin in one cassette. Levels x 2. [facility]:polly MARTIN M.D.,PATHOLOGIST (Electronic signature on file) Signed out: 11/16/2018 11:24 PRINTED: 11/16/2018 Page 1 of 1 Normal [facility] Comment on above: Performed By: #### S URG #### [address] [address] Bacteria identified Anaer cx Nom (Unsp spec) Anaerobic Culture Anaerobic cocci [facility] Work Phone: Bacteria identified Cx Nom ( Wound) Wound Culture Proprionibacterium acnes [facility] Work Phone: Culture, urine Bacteria identified Cx Nom (U) Positive [facility] Work Phone: Bacteria identified Cx Nom (U) Presumptive Lactobacillus sp. [facility] Work Phone: Bacteria identified Cx Nom (U) Culture exhibits no growth. [facility] Work Phone: Gram stain for investigation of transfusion reaction Microscopic observation Gram stain Nom (Unsp spec) [facility] Work Phone: No Panel Information Influenza Types A,B Direct FA (GARCIA) [facility] Work Phone: Vital Signs Date Time Vital Sign Value Performing Clinician Facility 08-13-2024 10:46-0400 Body height 177.8 cm Brittney Jose APRN.[employer]AR[employer]GER Work Phone: [facility] 08-13-2024 10:46-0400 Body mass index (BMI) [Ratio] 26.57 kg/m2 Brittney Jose APRN.[employer]AR[employer] DIGGER Work Phone: [facility] 08-13-2024 10:46-0400 Body weight 84 kg Brittney Jose BEAM BUILDER.[employer] Work Phone: [facility] 05-24-2024 09:14-0500 Body mass index (BMI) [Ratio] 26.89 kg/m2 Mario Hidalgo BEAM BUILDER.[employer]AR[employer] D[employer]GER Work Phone: [facility] 05-24-2024 09:14-0500 Body temperature 97.5 [degF] Mario Downsthang BEAM BUILDER.[employer] D[employer]GER Work Phone: [facility] 05-24-2024 09:14-0500 Body weight 85 kg Mario Hidalgo BEAM BUILDER.[employer] Work Phone: [facility] 05-24-2024 09:14-0500 Diastolic blood pressure 89 mm[Hg] Mario Hidalgo BEAM BUILDER.[employer]GER Work Phone: [facility] 05-24-2024 09:14-0500 Heart rate 77 /min Mario Hidalgo BEAM BUILDER.[employer]GER Work Phone: [facility] 05-24-2024 09:14-0500 Respiratory rate 20 /min Mario Downsthang BEAM BUILDER.[employer] D[employer]GER Work Phone: [facility] 05-24-2024 09:14-0500 SaO2% (BldA) [Mass fraction] 100 % Mario Hidalgo BEAM BUILDER.[employer]AR[employer] D[employer]GER Work Phone: [facility] 05-24-2024 09:14-0500 Systolic blood pressure 130 mm[Hg] Mario Hidalgo BEAM BUILDER.[employer] D[employer]GER Work Phone: [facility] 03-21-2024 09:27-0500 Body mass index (BMI) [Ratio] 26.77 kg/m2 Av Carter MD Work Phone: [facility] 03-21-2024 09:27-0500 Body weight 84.64 kg Av Carter MD Work Phone: [facility] 03-21-2024 09:27-0500 Diastolic blood pressure 64 mm[Hg] Av Carter MD Work Phone: [facility] 03-21-2024 09:27-0500 Systolic blood pressure 100 mm[Hg] Av Carter MD Work Phone: [facility] 05-04-2023 22:23-0500 Diastolic Blood Pressure Non-Invasive 89 mm[Hg] SANDRA HAN MD [facility] 05-04-2023 22:23-0500 Heart rate 62 /min SANDRA HAN MD [facility] 05-04-2023 22:23-0500 Respiratory rate 18 /min SANDRA HAN MD [facility] 05-04-2023 22:23-0500 Systolic Blood Pressure Non-Invasive 114 mm[Hg] SANDRA HAN MD [facility] 05-04-2023 20:50-0500 Body temperature 98.24 [degF] SANDRA HAN MD [facility] 05-04-2023 20:50-0500 Diastolic Blood Pressure Non-Invasive 66 mm[Hg] SANDRA HAN MD [facility] 05-04-2023 20:50-0500 Heart rate 66 /min SANDRA HAN MD [facility] 05-04-2023 20:50-0500 Respiratory rate 16 /min SANDRA HAN MD [facility] 05-04-2023 20:50-0500 Systolic Blood Pressure Non-Invasive 128 mm[Hg] SANDRA HAN MD [facility] 02-07-2023 14:44-0400 Body weight 77.11 kg Lianne Bowman MD Work Phone: [facility] 02-07-2023 14:44-0400 Diastolic blood pressure 60 mm[Hg] Lianne Bowman MD Work Phone: [facility] 02-07-2023 14:44-0400 Systolic blood pressure 102 mm[Hg] Lianne Bowman MD Work Phone: [facility] 10-06-2022 15:07-0400 Body height 177.8 cm Susan Collier MD Work Phone: [facility] 10-06-2022 15:07-0400 Body temperature 98.49 [degF] Susan Collier MD Work Phone: [facility] 10-06-2022 15:07-0400 Body weight 73.94 kg Susan Collier MD Work Phone: [facility] 10-06-2022 15:07-0400 Diastolic blood pressure 66 mm[Hg] Susan Collier MD Work Phone: [facility] 10-06-2022 15:07-0400 Heart rate 95 /min Susan Collier MD Work Phone: [facility] 10-06-2022 15:07-0400 SaO2% (BldA) [Mass fraction] 99 % Susan Collier MD Work Phone: [facility] 10-06-2022 15:07-0400 Systolic blood pressure 108 mm[Hg] Susan Collier MD Work Phone: [facility] 04-28-2022 16:37-0500 Diastolic blood pressure 81 mm[Hg] Dr. Koko Kent Work Phone: [facility] 04-28-2022 16:37-0500 Systolic blood pressure 111 mm[Hg] Dr. Koko Kent Work Phone: [facility] 04-28-2022 16:21-0500 Respiratory rate 16 /min Dr. Koko Kent Work Phone: [facility] 04-28-2022 12:27-0500 Body height 177.[address] Koko Kent Work Phone: [facility] 04-28-2022 12:27-0500 Body mass index (BMI) [Ratio] 23.6 kg/m2 Dr. Koko Kent Work Phone: [facility] 04-28-2022 12:27-0500 Body temperature 98 [degF] Dr. Koko Kent Work Phone: [facility] 04-28-2022 12:27-0500 Body weight 74.[address] Koko Kent Work Phone: [facility] 04-28-2022 12:27-0500 Heart rate 95 /min Dr. Koko Kent Work Phone: [facility] 04-28-2022 12:27-0500 SaO2% (BldA) [Mass fraction] 99 % Dr. Koko Kent Work Phone: [facility] 04-22-2022 13:11-0500 Body temperature 97.4 [degF] Dr. Koko Kent Work Phone: [facility] 04-22-2022 13:11-0500 Body weight 75.[address] Koko Kent Work Phone: [facility] 04-22-2022 13:11-0500 Diastolic blood pressure 64 mm[Hg] Dr. Koko Kent Work Phone: [facility] 04-22-2022 13:11-0500 Heart rate 65 /min Dr. Koko Kent Work Phone: [facility] 04-22-2022 13:11-0500 Respiratory rate 18 /min Dr. Koko Kent Work Phone: [facility] 04-22-2022 13:11-0500 SaO2% (BldA) [Mass fraction] 95 % Dr. Koko Kent Work Phone: [facility] 04-22-2022 13:11-0500 Systolic blood pressure 102 mm[Hg] Dr. Koko Kent Work Phone: [facility] 04-22-2022 07:55-0500 Body mass index (BMI) [Ratio] 23.6 kg/m2 Dr. Koko Kent Work Phone: [facility] 04-22-2022 07:55-0500 Body weight 74.[address] Koko Kent Work Phone: [facility] 04-22-2022 07:55-0500 Diastolic blood pressure 77 mm[Hg] Dr. Koko Kent Work Phone: [facility] 04-22-2022 07:55-0500 Heart rate 70 /min Dr. Koko Kent Work Phone: [facility] 04-22-2022 07:55-0500 Respiratory rate 18 /min Dr. Koko Kent Work Phone: [facility] 04-22-2022 07:55-0500 SaO2% (BldA) [Mass fraction] 100 % Dr. Koko Kent Work Phone: [facility] 04-22-2022 07:55-0500 Systolic blood pressure 113 mm[Hg] Dr. Koko Kent Work Phone: [facility] 04-17-2022 13:34-0500 Respiratory rate 18 /min Dr. Koko Kent Work Phone: [facility] 04-17-2022 10:44-0500 Body height 177.[address] Koko Kent Work Phone: [facility] Work Phone: 04-17-2022 10:44-0500 Body mass index (BMI) [Ratio] 23.9 kg/m2 Dr. Koko Kent Work Phone: [facility] 04-17-2022 10:44-0500 Body temperature 97.5 [degF] Dr. Koko Kent Work Phone: [facility] 04-17-2022 10:44-0500 Body weight 75.[address] Koko Kent Work Phone: [facility] 04-17-2022 10:44-0500 Diastolic blood pressure 98 mm[Hg] Dr. Koko Kent Work Phone: [facility] 04-17-2022 10:44-0500 Heart rate 97 /min Dr. Koko Kent Work Phone: [facility] 04-17-2022 10:44-0500 SaO2% (BldA) [Mass fraction] 100 % Dr. Koko Kent Work Phone: [facility] 04-17-2022 10:44-0500 Systolic blood pressure 133 mm[Hg] Dr. Koko Kent Work Phone: [facility] 04-16-2022 17:17-0500 Body height 177.[address] Koko Kent Work Phone: [facility] Work Phone: 04-16-2022 17:17-0500 Body mass index (BMI) [Ratio] 23.9 kg/m2 Dr. Koko Kent Work Phone: [facility] 04-16-2022 17:17-0500 Body temperature 97.4 [degF] Dr. Koko Kent Work Phone: [facility] 04-16-2022 17:17-0500 Body weight 75.[address] Koko Kent Work Phone: [facility] 04-16-2022 17:17-0500 Diastolic blood pressure 85 mm[Hg] Dr. Koko Kent Work Phone: [facility] 04-16-2022 17:17-0500 Heart rate 77 /min Dr. Koko Kent Work Phone: [facility] 04-16-2022 17:17-0500 Respiratory rate 18 /min Dr. Koko Kent Work Phone: [facility] 04-16-2022 17:17-0500 SaO2% (BldA) [Mass fraction] 100 % Dr. Koko Kent Work Phone: [facility] 04-16-2022 17:17-0500 Systolic blood pressure 142 mm[Hg] Dr. Koko Kent Work Phone: [facility] 02-16-2022 09:45-0500 Body temperature 97.4 [degF] Dr. Koko Kent Work Phone: [facility] 02-11-2022 10:37-0400 Body height 177.[address] Koko Kent Work Phone: [facility] Work Phone: 02-11-2022 10:37-0400 Body mass index (BMI) [Ratio] 23.5 kg/m2 Dr. Koko Kent Work Phone: [facility] 02-11-2022 10:37-0400 Body weight 74.[address] Koko Kent Work Phone: [facility] 02-11-2022 10:37-0400 Diastolic blood pressure 73 mm[Hg] Dr. Koko Kent Work Phone: [facility] 02-11-2022 10:37-0400 Heart rate 64 /min Dr. Koko Kent Work Phone: [facility] 02-11-2022 10:37-0400 SaO2% (BldA) [Mass fraction] 97 % Dr. Koko Kent Work Phone: [facility] 02-11-2022 10:37-0400 Systolic blood pressure 114 mm[Hg] Dr. Koko Kent Work Phone: [facility] 02-06-2022 21:45-0400 Body temperature 97.9 [degF] Dr. Koko Kent Work Phone: [facility] 02-06-2022 21:45-0400 Diastolic blood pressure 67 mm[Hg] Dr. Koko Kent Work Phone: [facility] 02-06-2022 21:45-0400 Heart rate 55 /min Dr. Koko Kent Work Phone: [facility] 02-06-2022 21:45-0400 Respiratory rate 18 /min Dr. Koko Kent Work Phone: [facility] 02-06-2022 21:45-0400 SaO2% (BldA) [Mass fraction] 96 % Dr. Koko Kent Work Phone: [facility] 02-06-2022 21:45-0400 Systolic blood pressure 110 mm[Hg] Dr. Koko Kent Work Phone: [facility] 02-06-2022 13:06-0400 Body height 177.[address] Koko Kent Work Phone: [facility] Work Phone: 02-06-2022 13:06-0400 Body mass index (BMI) [Ratio] 24 kg/m2 Dr. Koko Kent Work Phone: [facility] 02-06-2022 13:06-0400 Body weight 75.[address] Koko Kent Work Phone: [facility] 02-06-2022 12:16-0400 Body temperature 97 [degF] Dr. Koko Kent Work Phone: [facility] Work Phone: 02-06-2022 12:16-0400 Diastolic blood pressure 66 mm[Hg] Dr. Koko eKnt Work Phone: [facility] Work Phone: 02-06-2022 12:16-0400 Heart rate 49 /min Dr. Koko Kent Work Phone: [facility] Work Phone: 02-06-2022 12:16-0400 Respiratory rate 18 /min Dr. Koko Kent Work Phone: [facility] Work Phone: 02-06-2022 12:16-0400 SaO2% (BldA) [Mass fraction] 98 % Dr. Koko Kent Work Phone: [facility] Work Phone: 02-06-2022 12:16-0400 Systolic blood pressure 104 mm[Hg] Dr. Koko Kent Work Phone: [facility] Work Phone: 02-06-2022 09:39-0400 Body height 177.[address] Koko Kent Work Phone: [facility] Work Phone: 02-06-2022 09:39-0400 Body mass index (BMI) [Ratio] 23.6 kg/m2 Dr. Koko Kent Work Phone: [facility] Work Phone: 02-06-2022 09:39-0400 Body weight 74.[address] Koko Kent Work Phone: [facility] Work Phone: 02-03-2022 07:47-0400 Body temperature 97.7 [degF] Mally Morrison APRN.CNP Work Phone: [facility] 02-03-2022 07:47-0400 Body weight 75.75 kg Mally Praisler-Wood BEAM BUILDER.[employer]AR[employer] D[employer]GER Work Phone: [facility] 02-03-2022 07:47-0400 Diastolic blood pressure 68 mm[Hg] Mally Praisler-Wood BEAM BUILDER.[employer]AR[employer] DIGGER Work Phone: [facility] 02-03-2022 07:47-0400 Heart rate 90 /min Mally Praisler-Wood BEAM BUILDER.[employer]AR[employer] DIGGER Work Phone: [facility] 02-03-2022 07:47-0400 Respiratory rate 16 /min Mally Praisler-Wood BEAM BUILDER.[employer]AR[employer] DIGGER Work Phone: [facility] 02-03-2022 07:47-0400 SaO2% (BldA) [Mass fraction] 97 % Mally Praisler-Wood BEAM BUILDER.PEAR[employer] DIGGER Work Phone: [facility] 02-03-2022 07:47-0400 Systolic blood pressure 108 mm[Hg] Mally Praisler-Wood BEAM BUILDER.[employer]AR[employer] DIGGER Work Phone: [facility] 01-22-2022 13:36-0400 Body temperature 97.6 [degF] Dr. Koko Kent Work Phone: [facility] 01-22-2022 13:36-0400 Diastolic blood pressure 62 mm[Hg] Dr. Koko Kent Work Phone: [facility] 01-22-2022 13:36-0400 Heart rate 93 /min Dr. Koko Kent Work Phone: [facility] 01-22-2022 13:36-0400 Respiratory rate 16 /min Dr. Koko Kent Work Phone: [facility] 01-22-2022 13:36-0400 SaO2% (BldA) [Mass fraction] 98 % Dr. Koko Kent Work Phone: [facility] 01-22-2022 13:36-0400 Systolic blood pressure 118 mm[Hg] Dr. Koko Kent Work Phone: [facility] 01-07-2022 10:38-0400 Body height 177.[address] Koko Kent Work Phone: [facility] Work Phone: 01-07-2022 10:38-0400 Body mass index (BMI) [Ratio] 24.3 kg/m2 Dr. Koko Kent Work Phone: [facility] 01-07-2022 10:38-0400 Body weight 76.[address] Koko Kent Work Phone: [facility] 01-07-2022 10:38-0400 Diastolic blood pressure 79 mm[Hg] Dr. Koko Kent Work Phone: [facility] 01-07-2022 10:38-0400 Heart rate 83 /min Dr. Koko Kent Work Phone: [facility] 01-07-2022 10:38-0400 Respiratory rate 18 /min Dr. Koko Kent Work Phone: [facility] 01-07-2022 10:38-0400 SaO2% (BldA) [Mass fraction] 100 % Dr. Koko Kent Work Phone: [facility] 01-07-2022 10:38-0400 Systolic blood pressure 118 mm[Hg] Dr. Koko Kent Work Phone: [facility] 01-07-2022 09:59-0400 Body mass index (BMI) [Ratio] 24.5 kg/m2 Dr. Koko Kent Work Phone: [facility] 01-07-2022 09:59-0400 Body temperature 98 [degF] Dr. Koko Kent Work Phone: [facility] 01-07-2022 09:59-0400 Body weight 77.[address] Koko Kent Work Phone: [facility] 01-07-2022 09:59-0400 Diastolic blood pressure 80 mm[Hg] Dr. Koko Kent Work Phone: [facility] 01-07-2022 09:59-0400 Heart rate 83 /min Dr. Koko Kent Work Phone: [facility] 01-07-2022 09:59-0400 Respiratory rate 16 /min Dr. Koko Kent Work Phone: [facility] 01-07-2022 09:59-0400 SaO2% (BldA) [Mass fraction] 98 % Dr. Koko Kent Work Phone: [facility] [facility] 01-07-[facility]22 09:59-0400 Systolic blood pressure 120 mm[Hg] Dr. Koko Kent Work Phone: [facility] 01-06-2022 10:38-0400 Diastolic blood pressure 65 mm[Hg] Dr. Koko Kent Work Phone: [facility] 01-06-2022 10:38-0400 Heart rate 61 /min Dr. Koko Kent Work Phone: [facility] 01-06-2022 10:38-0400 Respiratory rate 15 /min Dr. Koko Kent Work Phone: [facility] 01-06-2022 10:38-0400 SaO2% (BldA) [Mass fraction] 100 % Dr. Koko Kent Work Phone: [facility] 01-06-2022 10:38-0400 Systolic blood pressure 119 mm[Hg] Dr. Koko Kent Work Phone: [facility] 01-06-2022 08:35-0400 Body mass index (BMI) [Ratio] 25.1 kg/m2 Dr. Koko Kent Work Phone: [facility] 01-06-2022 08:35-0400 Body temperature 97.5 [degF] Dr. Koko Kent Work Phone: [facility] 01-06-2022 08:35-0400 Body weight 79.[address] Koko Kent Work Phone: [facility] 12-15-2021 09:10-0400 Body height 177.[address] Koko Kent Work Phone: [facility] Work Phone: 12-15-2021 09:10-0400 Body mass index (BMI) [Ratio] 24.4 kg/m2 Dr. Koko Kent Work Phone: [facility] Work Phone: 12-15-2021 09:10-0400 Body weight 77.[address] Koko Kent Work Phone: [facility] Work Phone: 12-10-2021 16:57-0400 Diastolic blood pressure 70 mm[Hg] Dr. Koko Kent Work Phone: [facility] Work Phone: 12-10-2021 16:57-0400 Heart rate 60 /min Dr. Koko Kent Work Phone: [facility] Work Phone: 12-10-2021 16:57-0400 Respiratory rate 16 /min Dr. Koko Kent Work Phone: [facility] Work Phone: 12-10-2021 16:57-0400 SaO2% (BldA) [Mass fraction] 98 % Dr. Koko Kent Work Phone: [facility] Work Phone: 12-10-2021 16:57-0400 Systolic blood pressure 120 mm[Hg] Dr. Koko Kent Work Phone: [facility] Work Phone: 12-10-2021 16:15-0400 Body temperature 97.6 [degF] Dr. Koko Kent Work Phone: [facility] Work Phone: 12-10-2021 12:45-0400 Body height 177.[address] Koko Kent Work Phone: [facility] Work Phone: 12-10-2021 12:45-0400 Body mass index (BMI) [Ratio] 24.5 kg/m2 Dr. Koko Kent Work Phone: [facility] Work Phone: 12-10-2021 12:45-0400 Body weight 77.[address] Koko Kent Work Phone: [facility] Work Phone: 12-09-2021 22:45-0400 Respiratory rate 16 /min Dr. Koko Kent Work Phone: [facility] Work Phone: 12-09-2021 22:02-0400 Diastolic blood pressure 60 mm[Hg] Dr. Koko Kent Work Phone: [facility] Work Phone: 12-09-2021 22:02-0400 Heart rate 71 /min Dr. Koko Kent Work Phone: [facility] Work Phone: 12-09-2021 22:02-0400 SaO2% (BldA) [Mass fraction] 96 % Dr. Koko Kent Work Phone: [facility] Work Phone: 12-09-2021 22:02-0400 Systolic blood pressure 96 mm[Hg] Dr. Koko Kent Work Phone: [facility] Work Phone: 12-09-2021 18:18-0400 Body mass index (BMI) [Ratio] 23.6 kg/m2 Dr. Koko Kent Work Phone: [facility] Work Phone: 12-09-2021 18:18-0400 Body temperature 96.7 [degF] Dr. Koko Kent Work Phone: [facility] Work Phone: 12-09-2021 18:18-0400 Body weight 74.[address] Koko Kent Work Phone: [facility] Work Phone: 11-24-2021 13:42-0400 Body height 177.[address] Koko Kent Work Phone: [facility] Work Phone: 11-24-2021 13:42-0400 Body mass index (BMI) [Ratio] 23.8 kg/m2 Dr. Koko Kent Work Phone: [facility] Work Phone: 11-24-2021 13:42-0400 Body temperature 98.3 [degF] Dr. Koko Kent Work Phone: [facility] Work Phone: 11-24-2021 13:42-0400 Body weight 75.[address] Koko Kent Work Phone: [facility] Work Phone: 11-24-2021 13:42-0400 Diastolic blood pressure 68 mm[Hg] Dr. Koko Kent Work Phone: [facility] Work Phone: 11-24-2021 13:42-0400 Heart rate 81 /min Dr. oKko Kent Work Phone: [facility] Work Phone: 11-24-2021 13:42-0400 Respiratory rate 14 /min Dr. Koko Kent Work Phone: [facility] Work Phone: 11-24-2021 13:42-0400 SaO2% (BldA) [Mass fraction] 99 % Dr. Koko Kent Work Phone: [facility] Work Phone: 11-24-2021 13:42-0400 Systolic blood pressure 114 mm[Hg] Dr. Koko Kent Work Phone: [facility] Work Phone: 10-29-2021 12:38-0400 Diastolic blood pressure 70 mm[Hg] ELFEGO GRIFFIN [facility] 10-29-2021 12:38-0400 Heart rate 69 /min ELFEGO DHILLONT DO [facility] 10-29-2021 12:38-0400 Systolic blood pressure 99 mm[Hg] ELFEGO DHILLONT DO [facility] 10-29-2021 11:19-0400 Diastolic blood pressure 67 mm[Hg] ELFEGO DHILLONT DO [facility] 10-29-2021 11:19-0400 Heart rate 68 /min ELFEGO DHILLONT DO [facility] 10-29-2021 11:19-0400 Systolic blood pressure 112 mm[Hg] ELFEGO DHILLONT DO [facility] 10-29-2021 09:35-0400 Body temperature 99.32 [degF] ELFEGO DHILLONT DO [facility] 10-29-2021 09:35-0400 Body weight 78.8 kg ELFEGO GRIFFIN DO [facility] 10-29-2021 09:35-0400 Diastolic blood pressure 72 mm[Hg] ELFEGO GRIFFIN DO [facility] 10-29-2021 09:35-0400 Heart rate 82 /min ELFEGO GRIFFIN DO [facility] 10-29-2021 09:35-0400 Respiratory rate 18 /min ELFEGO GRIFFIN DO [facility] 10-29-2021 09:35-0400 Systolic blood pressure 124 mm[Hg] ELFEGO GRIFFIN DO [facility] 10-26-2021 21:55-0400 Body height 177.[address] Koko Kent Work Phone: [facility] Work Phone: 10-26-2021 21:55-0400 Body mass index (BMI) [Ratio] 23.9 kg/m2 Dr. Koko Kent Work Phone: [facility] Work Phone: 10-26-2021 21:55-0400 Body temperature 98.3 [degF] Dr. Koko Kent Work Phone: [facility] Work Phone: 10-26-2021 21:55-0400 Body weight 75.[address] Kkoo Kent Work Phone: [facility] Work Phone: 10-26-2021 21:55-0400 Diastolic blood pressure 81 mm[Hg] Dr. Koko Kent Work Phone: [facility] Work Phone: 10-26-2021 21:55-0400 Heart rate 105 /min Dr. Koko Kent Work Phone: [facility] Work Phone: 10-26-2021 21:55-0400 Respiratory rate 18 /min Dr. Koko Kent Work Phone: [facility] Work Phone: 10-26-2021 21:55-0400 SaO2% (BldA) [Mass fraction] 99 % Dr. Koko Kent Work Phone: [facility] Work Phone: 10-26-2021 21:55-0400 Systolic blood pressure 131 mm[Hg] Dr. Koko Kent Work Phone: [facility] Work Phone: 10-13-2021 17:59-0400 Body height 177.[address] Koko Kent Work Phone: [facility] Work Phone: 10-13-2021 17:59-0400 Body mass index (BMI) [Ratio] 25 kg/m2 Dr. Koko Kent Work Phone: [facility] Work Phone: 10-13-2021 17:59-0400 Body temperature 98.6 [degF] Dr. Koko Kent Work Phone: [facility] Work Phone: 10-13-2021 17:59-0400 Body weight 78.[address] Koko Kent Work Phone: [facility] Work Phone: 10-13-2021 17:59-0400 Diastolic blood pressure 74 mm[Hg] Dr. Koko Kent Work Phone: [facility] Work Phone: 10-13-2021 17:59-0400 Heart rate 72 /min Dr. Koko Kent Work Phone: [facility] Work Phone: 10-13-2021 17:59-0400 Respiratory rate 14 /min Dr. Koko Kent Work Phone: [facility] Work Phone: 10-13-2021 17:59-0400 SaO2% (BldA) [Mass fraction] 100 % Dr. Koko Kent Work Phone: [facility] Work Phone: 10-13-2021 17:59-0400 Systolic blood pressure 116 mm[Hg] Dr. Koko Kent Work Phone: [facility] Work Phone: 10-06-2021 13:22-0400 Body temperature 98.8 [degF] Dr. Koko Kent Work Phone: [facility] Work Phone: 10-06-2021 13:22-0400 Diastolic blood pressure 57 mm[Hg] Dr. Koko Kent Work Phone: [facility] Work Phone: 10-06-2021 13:22-0400 Heart rate 73 /min Dr. Koko Kent Work Phone: [facility] Work Phone: 10-06-2021 13:22-0400 Respiratory rate 16 /min Dr. Koko Kent Work Phone: [facility] Work Phone: 10-06-2021 13:22-0400 SaO2% (BldA) [Mass fraction] 100 % Dr. Koko Kent Work Phone: [facility] Work Phone: 10-06-2021 13:22-0400 Systolic blood pressure 106 mm[Hg] Dr. Koko Kent Work Phone: [facility] Work Phone: 10-06-2021 11:23-0400 Body height 177.[address] Koko Kent Work Phone: [facility] Work Phone: 10-06-2021 11:23-0400 Body mass index (BMI) [Ratio] 25 kg/m2 Dr. Koko Kent Work Phone: [facility] Work Phone: 10-06-2021 11:23-0400 Body weight 79.[address] Koko Kent Work Phone: [facility] Work Phone: 07-24-2021 14:47-0400 Body mass index (BMI) [Ratio] 26.1 kg/m2 Dr. Koko Kent Work Phone: [facility] Work Phone: 07-24-2021 14:47-0400 Body temperature 97.8 [degF] Dr. Koko Kent Work Phone: [facility] Work Phone: 07-24-2021 14:47-0400 Body weight 82.[address] Koko Kent Work Phone: [facility] Work Phone: 07-24-2021 14:47-0400 Diastolic blood pressure 73 mm[Hg] Dr. Koko Kent Work Phone: [facility] Work Phone: 07-24-2021 14:47-0400 Heart rate 97 /min Dr. Koko Kent Work Phone: [facility] Work Phone: 07-24-2021 14:47-0400 Respiratory rate 18 /min Dr. Koko Kent Work Phone: [facility] Work Phone: 07-24-2021 14:47-0400 SaO2% (BldA) [Mass fraction] 100 % Dr. Koko Kent Work Phone: [facility] Work Phone: 07-24-2021 14:47-0400 Systolic blood pressure 109 mm[Hg] Dr. Koko Kent Work Phone: [facility] Work Phone: 07-24-2021 14:47-0400 Body height 177.[address] Koko Kent Work Phone: [facility] Work Phone: 07-24-2021 14:47-0400 Body mass index (BMI) [Ratio] 26.1 kg/m2 Dr. Koko Kent Work Phone: [facility] Work Phone: 07-24-2021 14:47-0400 Body temperature 97.8 [degF] Dr. Koko Kent Work Phone: [facility] Work Phone: 07-24-2021 14:47-0400 Body weight 82.[address] Koko Kent Work Phone: [facility] Work Phone: 07-24-2021 14:47-0400 Diastolic blood pressure 73 mm[Hg] Dr. Koko Kent Work Phone: [facility] Work Phone: 07-24-2021 14:47-0400 Heart rate 97 /min Dr. Koko Kent Work Phone: [facility] Work Phone: 07-24-2021 14:47-0400 Respiratory rate 18 /min Dr. Koko Kent Work Phone: [facility] Work Phone: 07-24-2021 14:47-0400 SaO2% (BldA) [Mass fraction] 100 % Dr. Koko Kent Work Phone: [facility] Work Phone: 07-24-2021 14:47-0400 Systolic blood pressure 109 mm[Hg] Dr. Koko Kent Work Phone: [facility] Work Phone: 07-23-2021 10:33-0400 Body mass index (BMI) [Ratio] 26.2 kg/m2 Dr. Koko Kent Work Phone: [facility] Work Phone: 07-23-2021 10:33-0400 Body temperature 98.3 [degF] Dr. Koko Kent Work Phone: [facility] Work Phone: 07-23-2021 10:33-0400 Body weight 83.[address] Koko Kent Work Phone: [facility] Work Phone: 07-23-2021 10:33-0400 Diastolic blood pressure 68 mm[Hg] Dr. Koko Kent Work Phone: [facility] Work Phone: 07-23-2021 10:33-0400 Heart rate 84 /min Dr. Koko Kent Work Phone: [facility] Work Phone: 07-23-2021 10:33-0400 Respiratory rate 12 /min Dr. Koko Kent Work Phone: [facility] Work Phone: 07-23-2021 10:33-0400 SaO2% (BldA) [Mass fraction] 98 % Dr. Koko Kent Work Phone: [facility] Work Phone: 07-23-2021 10:33-0400 Systolic blood pressure 106 mm[Hg] Dr. Koko Kent Work Phone: [facility] Work Phone: 07-23-2021 10:33-0400 Body mass index (BMI) [Ratio] 26.2 kg/m2 Dr. Koko Kent Work Phone: [facility] Work Phone: 07-23-2021 10:33-0400 Body temperature 98.3 [degF] Dr. Koko Kent Work Phone: [facility] Work Phone: 07-23-2021 10:33-0400 Body weight 83.[address] Koko Kent Work Phone: [facility] Work Phone: 07-23-2021 10:33-0400 Diastolic blood pressure 68 mm[Hg] Dr. Koko Kent Work Phone: [facility] Work Phone: 07-23-2021 10:33-0400 Heart rate 84 /min Dr. Koko Kent Work Phone: [facility] Work Phone: 07-23-2021 10:33-0400 Respiratory rate 12 /min Dr. Koko Kent Work Phone: [facility] Work Phone: 07-23-2021 10:33-0400 SaO2% (BldA) [Mass fraction] 98 % Dr. Koko Kent Work Phone: [facility] Work Phone: 07-23-2021 10:33-0400 Systolic blood pressure 106 mm[Hg] Dr. Koko Kent Work Phone: [facility] Work Phone: 07-01-2021 18:12-0400 Diastolic blood pressure 72 mm[Hg] Dr. Koko Kent Work Phone: [facility] Work Phone: 07-01-2021 18:12-0400 Heart rate 58 /min Dr. Koko Kent Work Phone: [facility] Work Phone: 07-01-2021 18:12-0400 Respiratory rate 16 /min Dr. Koko Kent Work Phone: [facility] Work Phone: 07-01-2021 18:12-0400 SaO2% (BldA) [Mass fraction] 98 % Dr. Koko Kent Work Phone: [facility] Work Phone: 07-01-2021 18:12-0400 Systolic blood pressure 110 mm[Hg] Dr. Koko Kent Work Phone: [facility] Work Phone: 07-01-2021 13:28-0400 Body temperature 98.6 [degF] Dr. Koko Kent Work Phone: [facility] Work Phone: 07-01-2021 10:00-0400 Body height 177.[address] Koko Kent Work Phone: [facility] Work Phone: 07-01-2021 10:00-0400 Body mass index (BMI) [Ratio] 26.4 kg/m2 Dr. Koko Kent Work Phone: [facility] Work Phone: 07-01-2021 10:00-0400 Body weight 83.[address] Koko Kent Work Phone: [facility] Work Phone: 06-29-2021 08:37-0400 Diastolic blood pressure 71 mm[Hg] Dr. Koko Kent Work Phone: [facility] Work Phone: 06-29-2021 08:37-0400 Heart rate 57 /min Dr. Koko Kent Work Phone: [facility] Work Phone: 06-29-2021 08:37-0400 Respiratory rate 16 /min Dr. Koko Kent Work Phone: [facility] Work Phone: 06-29-2021 08:37-0400 SaO2% (BldA) [Mass fraction] 100 % Dr. Koko Kent Work Phone: [facility] Work Phone: 06-29-2021 08:37-0400 Systolic blood pressure 118 mm[Hg] Dr. Koko Kent Work Phone: [facility] Work Phone: 06-29-2021 06:20-0400 Body mass index (BMI) [Ratio] 26.5 kg/m2 Dr. Koko Kent Work Phone: [facility] Work Phone: 06-29-2021 06:20-0400 Body temperature 97.9 [degF] Dr. Koko Kent Work Phone: [facility] Work Phone: 06-29-2021 06:20-0400 Body weight 83.[address] Koko Kent Work Phone: [facility] Work Phone: 06-17-2021 12:27-0500 Body mass index (BMI) [Ratio] 26.6 kg/m2 Dr. Koko Kent Work Phone: [facility] Work Phone: 06-17-2021 12:27-0500 Body weight 84.[address] Koko Kent Work Phone: [facility] Work Phone: 06-17-2021 12:27-0500 Diastolic blood pressure 81 mm[Hg] Dr. Koko Kent Work Phone: [facility] Work Phone: 06-17-2021 12:27-0500 Heart rate 64 /min Dr. Koko Kent Work Phone: [facility] Work Phone: 06-17-2021 12:27-0500 Respiratory rate 16 /min Dr. Koko Kent Work Phone: [facility] Work Phone: 06-17-2021 12:27-0500 SaO2% (BldA) [Mass fraction] 100 % Dr. Koko Kent Work Phone: [facility] Work Phone: 06-17-2021 12:27-0500 Systolic blood pressure 118 mm[Hg] Dr. Koko Kent Work Phone: [facility] Work Phone: 06-17-2021 11:27-0500 Body mass index (BMI) [Ratio] 26.6 kg/m2 Dr. Koko Kent Work Phone: [facility] Work Phone: 06-17-2021 11:27-0500 Body weight 84.[address] Koko Kent Work Phone: [facility] Work Phone: 06-17-2021 11:27-0500 Diastolic blood pressure 81 mm[Hg] Dr. Koko Kent Work Phone: [facility] Work Phone: 06-17-2021 11:27-0500 Heart rate 64 /min Dr. Koko Kent Work Phone: [facility] Work Phone: 06-17-2021 11:27-0500 Respiratory rate 16 /min Dr. Koko Kent Work Phone: [facility] Work Phone: 06-17-2021 11:27-0500 SaO2% (BldA) [Mass fraction] 100 % Dr. Koko Kent Work Phone: [facility] Work Phone: 06-17-2021 11:27-0500 Systolic blood pressure 118 mm[Hg] Dr. Koko Kent Work Phone: [facility] Work Phone: 06-12-2021 10:58-0500 Body mass index (BMI) [Ratio] 26.8 kg/m2 Dr. Koko Kent Work Phone: [facility] Work Phone: 06-12-2021 10:58-0500 Body temperature 97.2 [degF] Dr. Koko Kent Work Phone: [facility] Work Phone: 06-12-2021 10:58-0500 Body weight 84.[address] Koko Kent Work Phone: [facility] Work Phone: 06-12-2021 10:58-0500 Diastolic blood pressure 88 mm[Hg] Dr. Koko Kent Work Phone: [facility] Work Phone: 06-12-2021 10:58-0500 Heart rate 78 /min Dr. Koko Kent Work Phone: [facility] Work Phone: 06-12-2021 10:58-0500 Respiratory rate 16 /min Dr. Koko Kent Work Phone: [facility] Work Phone: 06-12-2021 10:58-0500 SaO2% (BldA) [Mass fraction] 99 % Dr. Koko Kent Work Phone: [facility] Work Phone: 06-12-2021 10:58-0500 Systolic blood pressure 122 mm[Hg] Dr. Koko Kent Work Phone: [facility] Work Phone: 06-12-2021 09:58-0500 Body mass index (BMI) [Ratio] 26.8 kg/m2 Dr. Koko Kent Work Phone: [facility] Work Phone: 06-12-2021 09:58-0500 Body temperature 97.2 [degF] Dr. Koko Kent Work Phone: [facility] Work Phone: 06-12-2021 09:58-0500 Body weight 84.[address] Koko Kent Work Phone: [facility] Work Phone: 06-12-2021 09:58-0500 Diastolic blood pressure 88 mm[Hg] Dr. Koko Kent Work Phone: [facility] Work Phone: 06-12-2021 09:58-0500 Heart rate 78 /min Dr. Koko Kent Work Phone: [facility] Work Phone: 06-12-2021 09:58-0500 Respiratory rate 16 /min Dr. Koko Kent Work Phone: [facility] Work Phone: 06-12-2021 09:58-0500 SaO2% (BldA) [Mass fraction] 99 % Dr. Koko Kent Work Phone: [facility] Work Phone: 06-12-2021 09:58-0500 Systolic blood pressure 122 mm[Hg] Dr. Koko Kent Work Phone: [facility] Work Phone: 06-05-2021 08:37-0500 Body mass index (BMI) [Ratio] 26.5 kg/m2 Dr. Koko Kent Work Phone: [facility] Work Phone: 06-05-2021 08:37-0500 Body temperature 96.8 [degF] Dr. Koko Kent Work Phone: [facility] Work Phone: 06-05-2021 08:37-0500 Body weight 83.[address] Koko Kent Work Phone: [facility] Work Phone: 06-05-2021 08:37-0500 Diastolic blood pressure 78 mm[Hg] Dr. Koko Kent Work Phone: [facility] Work Phone: 06-05-2021 08:37-0500 Heart rate 82 /min Dr. Koko Kent Work Phone: [facility] Work Phone: 06-05-2021 08:37-0500 Respiratory rate 18 /min Dr. Koko Kent Work Phone: [facility] Work Phone: 06-05-2021 08:37-0500 SaO2% (BldA) [Mass fraction] 99 % Dr. Koko Kent Work Phone: [facility] Work Phone: 06-05-2021 08:37-0500 Systolic blood pressure 142 mm[Hg] Dr. Koko Kent Work Phone: [facility] Work Phone: 05-08-2021 10:37-0500 Diastolic blood pressure 63 mm[Hg] Dr. Koko Kent Work Phone: [facility] Work Phone: 05-08-2021 10:37-0500 Heart rate 66 /min Dr. Koko Kent Work Phone: [facility] Work Phone: 05-08-2021 10:37-0500 Respiratory rate 16 /min Dr. Koko Kent Work Phone: [facility] Work Phone: 05-08-2021 10:37-0500 SaO2% (BldA) [Mass fraction] 100 % Dr. Koko Kent Work Phone: [facility] Work Phone: 05-08-2021 10:37-0500 Systolic blood pressure 104 mm[Hg] Dr. Koko Kent Work Phone: [facility] Work Phone: 05-08-2021 08:33-0500 Body mass index (BMI) [Ratio] 27.8 kg/m2 Dr. Koko Kent Work Phone: [facility] Work Phone: 05-08-2021 08:33-0500 Body temperature 97.6 [degF] Dr. Koko Kent Work Phone: [facility] Work Phone: 05-08-2021 08:33-0500 Body weight 87.[address] Koko Kent Work Phone: [facility] Work Phone: 04-30-2021 09:38-0500 Diastolic blood pressure 67 mm[Hg] Dr. Koko Kent Work Phone: [facility] Work Phone: 04-30-2021 09:38-0500 Heart rate 71 /min Dr. Koko Kent Work Phone: [facility] Work Phone: 04-30-2021 09:38-0500 Respiratory rate 15 /min Dr. Koko Kent Work Phone: [facility] Work Phone: 04-30-2021 09:38-0500 SaO2% (BldA) [Mass fraction] 98 % Dr. Koko Kent Work Phone: [facility] Work Phone: 04-30-2021 09:38-0500 Systolic blood pressure 108 mm[Hg] Dr. Koko Kent Work Phone: [facility] Work Phone: 04-30-2021 07:35-0500 Body mass index (BMI) [Ratio] 26.9 kg/m2 Dr. Koko Kent Work Phone: [facility] Work Phone: 04-30-2021 07:35-0500 Body temperature 97.8 [degF] Dr. Koko Kent Work Phone: [facility] Work Phone: 04-30-2021 07:35-0500 Body weight 85.[address] Koko Kent Work Phone: [facility] Work Phone: 04-29-2021 16:31-0500 Body temperature 97.5 [degF] Dr. Koko Kent Work Phone: [facility] Work Phone: 04-29-2021 16:31-0500 Diastolic blood pressure 67 mm[Hg] Dr. Koko Kent Work Phone: [facility] Work Phone: 04-29-2021 16:31-0500 Heart rate 16 /min Dr. Koko Kent Work Phone: [facility] Work Phone: 04-29-2021 16:31-0500 Respiratory rate 16 /min Dr. Koko Kent Work Phone: [facility] Work Phone: 04-29-2021 16:31-0500 SaO2% (BldA) [Mass fraction] 98 % Dr. Koko Kent Work Phone: [facility] Work Phone: 04-29-2021 16:31-0500 Systolic blood pressure 114 mm[Hg] Dr. Koko Kent Work Phone: [facility] Work Phone: 04-29-2021 09:06-0500 Body mass index (BMI) [Ratio] 26.8 kg/m2 Dr. Koko Kent Work Phone: [facility] Work Phone: 04-29-2021 09:06-0500 Body weight 84.[address] Koko Kent Work Phone: [facility] Work Phone: 04-23-2021 07:22-0500 Body mass index (BMI) [Ratio] 27.2 kg/m2 Dr. Koko Kent Work Phone: [facility] Work Phone: 04-23-2021 07:22-0500 Body temperature 98.4 [degF] Dr. Koko Kent Work Phone: [facility] Work Phone: 04-23-2021 07:22-0500 Body weight 86.[address] Koko Kent Work Phone: [facility] Work Phone: 04-23-2021 07:22-0500 Diastolic blood pressure 71 mm[Hg] Dr. Koko Kent Work Phone: [facility] Work Phone: 04-23-2021 07:22-0500 Respiratory rate 18 /min Dr. Koko Kent Work Phone: [facility] Work Phone: 04-23-2021 07:22-0500 Systolic blood pressure 114 mm[Hg] Dr. Koko Kent Work Phone: [facility] Work Phone: 04-22-2021 09:23-0500 Diastolic blood pressure 78 mm[Hg] Dr. Koko Kent Work Phone: [facility] Work Phone: 04-22-2021 09:23-0500 Heart rate 77 /min Dr. Koko Kent Work Phone: [facility] Work Phone: 04-22-2021 09:23-0500 Respiratory rate 16 /min Dr. Koko Kent Work Phone: [facility] Work Phone: 04-22-2021 09:23-0500 SaO2% (BldA) [Mass fraction] 100 % Dr. Koko Kent Work Phone: [facility] Work Phone: 04-22-2021 09:23-0500 Systolic blood pressure 108 mm[Hg] Dr. Koko Kent Work Phone: [facility] Work Phone: 04-22-2021 07:59-0500 Body mass index (BMI) [Ratio] 26.8 kg/m2 Dr. Koko Kent Work Phone: [facility] Work Phone: 04-22-2021 07:59-0500 Body temperature 96 [degF] Dr. Koko Kent Work Phone: [facility] Work Phone: 04-22-2021 07:59-0500 Body weight 84.[address] Koko Kent Work Phone: [facility] Work Phone: 04-21-2021 14:02-0500 Body mass index (BMI) [Ratio] 26.9 kg/m2 Dr. Koko Kent Work Phone: [facility] Work Phone: 04-21-2021 14:02-0500 Body temperature 98.5 [degF] Dr. Koko Kent Work Phone: [facility] Work Phone: 04-21-2021 14:02-0500 Body weight 85.[address] Koko Kent Work Phone: [facility] Work Phone: 04-21-2021 14:02-0500 Diastolic blood pressure 80 mm[Hg] Dr. Koko Kent Work Phone: [facility] Work Phone: 04-21-2021 14:02-0500 Heart rate 68 /min Dr. Koko Kent Work Phone: [facility] Work Phone: 04-21-2021 14:02-0500 Respiratory rate 16 /min Dr. Koko Kent Work Phone: [facility] Work Phone: 04-21-2021 14:02-0500 SaO2% (BldA) [Mass fraction] 100 % Dr. Koko Kent Work Phone: [facility] Work Phone: 04-21-2021 14:02-0500 Systolic blood pressure 134 mm[Hg] Dr. Koko Kent Work Phone: [facility] Work Phone: 03-27-2021 09:05-0500 Diastolic blood pressure 77 mm[Hg] Dr. Koko Kent Work Phone: [facility] Work Phone: 03-27-2021 09:05-0500 Heart rate 60 /min Dr. Koko Kent Work Phone: [facility] Work Phone: 03-27-2021 09:05-0500 SaO2% (BldA) [Mass fraction] 99 % Dr. Koko Kent Work Phone: [facility] Work Phone: 03-27-2021 09:05-0500 Systolic blood pressure 94 mm[Hg] Dr. Koko Kent Work Phone: [facility] Work Phone: 03-27-2021 06:54-0500 Body mass index (BMI) [Ratio] 27.9 kg/m2 Dr. Koko Kent Work Phone: [facility] Work Phone: 03-27-2021 06:54-0500 Body temperature 98.5 [degF] Dr. Koko Kent Work Phone: [facility] Work Phone: 03-27-2021 06:54-0500 Body weight 88.[address] Koko Kent Work Phone: [facility] Work Phone: 03-27-2021 06:54-0500 Respiratory rate 16 /min Dr. Koko Kent Work Phone: [facility] Work Phone: Encounters Encounter Date Encounter Type Care Provider Facility Start: 10-15-2024 ambulatory Maddy Hanley Facfrancisco javier lity:[facility] Start: 10-04-2024 ambulatory [facility] Facility[facility] Start: 09-17-2024 Encounter for other preprocedural examination [facility] Start: 09-13-2024 End: 09-13-2024 ambulatory [facility] Facility:[facility] Start: 08-29-2024 End: 08-30-2024 ambulatory [facility] Facility:[facility] Start: 08-29-2024 ambulatory Eloy Lowe [facility] Start: 08-23-2024 End: 08-23-2024 ambulatory Eloyjanell Lowe Facility:[facility] Start: 08-23-2024 End: 08-23-2024 ambulatory Burke Nuno Facility:[facility] Start: 08-17-2024 End: 08-17-2024 ambulatory [facility] Facility:[facility] Start: 08-13-2024 End: 08-13-2024 Patient encounter procedure Brittney Jose BEAM BUILDER.PEARL DIGGER Work Phone: [facility] Comment on above: Impaired dexterity ( Primary Dx); Xie reflex positive; Lhermitte sign positive; Cervical disc herniation; Cervical radiculopathy; Foraminal stenosis of cervical region Start: 08-13-2024 End: 08-13-2024 ambulatory BRITTNEY JOSE Facility:[facility] Start: 08-03-2024 End: 08-03-2024 ambulatory Mimi Aldridge Facility:[facility] Start: 07-28-2024 End: 07-28-2024 ambulatory Mimi Aldridge Facility:[facility] Start: 07-12-2024 End: 07-12-2024 ambulatory Maddy Hanley Facility:[facility] Start: 07-09-2024 End: 07-09-2024 ambulatory Maddy Hanley Facility:[facility] Start: 07-06-2024 ambulatory Aviva Austin SAMPLE CARRIER Facility:[facility] Start: 06-29-2024 End: 06-29-2024 ambulatory Aviva Austin SAMPLE CARRIER Facility:[facility] Start: 06-21-2024 End: 06-21-2024 Emergency department patient visit Aviva Austin SAMPLE CARRIER Facility:[facility] Start: 06-18-2024 End: 06-18-2024 Emergency department patient visit AVIVA AUSTIN BEAM BUILDER - [employer]ARL DIGGER Facility:[facility] Start: 06-12-2024 ambulatory AVIVA LÓPEZ BEAM BUILDER - PEARL DIGGER Facility:[facility] Start: 06-06-2024 ambulatory AVIVA LÓPEZ BEAM BUILDER - PEARL DIGGER Facility:[facility] Start: 05-24-2024 End: 05-24-2024 Subsequent hospital visit by physician X[facility] Work Phone: Radiology Start: 05-24-2024 End: 05-24-2024 ambulatory AVIVA AUSTIN Facility:[facility] Start: 05-24-2024 End: 05-24-2024 Office outpatient visit 15 minutes Mario Hidalgo BEAM BUILDER.PEARL DIGGER Work Phone: [facility] Comment on above: Rib pain (Primary Dx ) Start: 05-21-2024 End: 05-21-2024 ambulatory AVIVA AUSTIN BEAM BUILDER - PEARL DIGGER Facility:[facility] Start: 05-21-2024 End: 05-21-2024 Patient encounter procedure AVIVA AUSTIN BEAM BUILDER - PEARL DIGGER [facility] Start: 05-11-2024 ambulatory Aviva Austin SAMPLE CARRIER Facility:[facility] Start: 05-11-2024 End: 05-11-2024 ambulatory Jules Rene Facility:[facility] Start: 05-01-2024 End: 05-01-2024 ambulatory Jules Rene Facility:[facility] Start: 05-01-2024 End: 05-01-2024 ambulatory Jules Rene Facility:[facility] Start: 04-24-2024 ambulatory AVIVA LÓPEZ BEAM BUILDER - PEARL DIGGER Facility:[facility] Start: 04-05-2024 End: 04-09-2024 Telephone encounter Av Carter MD Work Phone: OB/Gynecology Comment on above: Results Start: 03-22-2024 End: 03-22-2024 Patient encounter procedure Us Tech 1 [facility] OB/Gynecology Start: 03-22-2024 End: 03-22-2024 ambulatory 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 [employer] Work Phone: OB/Gynecology Start: 03-21-2024 End: 03-21-2024 ambulatory AV CARTER Facility:[facility] Start: 03-21-2024 End: 03-21-2024 Patient encounter procedure Av Carter MD Work Phone: OB/Gynecology Comment on above: Cyst of left ovary ( Primary Dx) Start: 01-29-2024 End: 01-29-2024 Emergency department patient visit Marcelo Loza Facility:[facility] Start: 11-30-2023 End: 11-30-2023 ambulatory Aviva Austin NP Facility:[facility] Start: 11-07-2023 End: 11-07-2023 ambulatory Jefe SCHULTZ Facility:[facility] Start: 10-27-2023 End: 10-27-2023 ambulatory Jules Rene Facility:[facility] Start: 10-25-2023 ambulatory AVIVA LÓPEZ BEAM BUILDER - PEARL DIGGER Facility:[facility] Start: 06-29-2023 Telephone encounter Lianne Bowman MD Work Phone: OB/Gynecology Comment on above: Patient Question Start: 06-20-2023 End: 06-20-2023 ambulatory AVIVA AUSTIN BEAM BUILDER - PEARL DIGGER Facility:[facility] Start: 06-20-2023 End: 06-20-2023 Patient encounter procedure AVIVA AUSTIN BEAM BUILDER - PEARL DIGGER [facility] Start: 06-09-2023 End: 06-09-2023 ambulatory AVIVA AUSTIN BEAM BUILDER - PEARL DIGGER Facility:[facility] Start: 06-09-2023 End: 06-09-2023 Patient encounter procedure AVIVA AUSTIN BEAM BUILDER - PEARL DIGGER [facility] Start: 05-18-2023 End: 05-18-2023 ambulatory AVIVA AUSTIN BEAM BUILDER - PEARL DIGGER Facility:[facility] Start: 05-18-2023 End: 05-18-2023 Patient encounter procedure AVIVA AUSTIN BEAM BUILDER - PEARL DIGGER [facility] Start: 05-10-2023 End: 05-10-2023 ambulatory GEE Beckford VENKATESH BEAM BUILDER-PEARL DIGGER Facility:[facility] Start: 05-04-2023 End: 05-04-2023 Emergency department patient visit SANDRA HAN MD [facility] Start: 02-24-2023 ambulatory AVIVA LÓPEZ BEAM BUILDER - PEARL DIGGER Facility:[facility] Start: 02-18-2023 End: 02-18-2023 ambulatory AVIVA AUSTIN BEAM BUILDER - PEARL DIGGER Facility:[facility] Start: 02-18-2023 End: 02-18-2023 Patient encounter procedure AVIVA AUSTIN BEAM BUILDER - PEARL DIGGER [facility] Start: 02-07-2023 End: 02-07-2023 Patient encounter procedure Lianne Bowman MD Work Phone: OB/Gynecology Comment on above: Ovarian cyst, left ( Primary Dx); Encounter for screening mammogram for malignant neoplasm of breast Start: 11-13-2022 End: 11-13-2022 ambulatory KOKO KENT MD Facility:[facility] Start: 10-11-2022 Telephone encounter Susan Moon MD Work Phone: General Surgery Comment on above: Results Start: 10-06-2022 End: 10-06-2022 Patient encounter procedure Susan Collier MD Work Phone: General Surgery Comment on above: Globus sensation (Pr imary Dx) Start: 04-28-2022 End: 04-28-2022 Emergency department patient visit Dr. Koko Kent Work Phone: [facility] Work Phone: Start: 04-28-2022 End: 04-28-2022 Dr. Koko Kent Work Phone: [facility]-Emergency Department Start: 04-22-2022 End: 04-22-2022 Dr. Koko Kent Work Phone: [facility] Start: 04-22-2022 End: 04-22-2022 Dr. Koko Kent Work Phone: [facility] Start: 04-17-2022 End: 04-17-[address] Koko Kent Work Phone: [facility] Work Phone: Start: 04-17-2022 End: 04-17-[address] Koko Kent Work Phone: [facility]-Pulmonary Services/Neurology Start: 04-17-2022 End: 04-17-2022 Dr. [facility] Start: 04-17-2022 End: 04-17-2022 Emergency department patient visit Dr. Koko Kent Work Phone: [facility]-Emergency Department Start: 04-17-2022 End: 04-17-2022 Dr. Koko Kent Work Phone: [facility]-Emergency Department Start: 04-16-2022 End: 04-16-2022 Emergency department patient visit Dr. Koko Kent Work Phone: [facility]-Emergency Department Start: 04-16-2022 End: 04-16-2022 Dr. Koko Kent Work Phone: [facility]-Emergency Department Start: 04-16-2022 End: 04-16-[address] Koko Kent Work Phone: [facility] Work Phone: Start: 04-16-2022 End: 04-16-[address] Koko Kent Work Phone: [facility]-Laboratory Start: 04-16-2022 End: 04-16-2022 Dr. Koko Kent Work Phone: [facility]-Laboratory Start: 03-08-2022 End: 03-08-[address] Koko Kent Work Phone: [facility] Start: 03-08-2022 End: 03-08-2022 Dr. Koko Kent Work Phone: [facility] Start: 03-08-2022 End: 03-08-[address] Koko Kent Work Phone: [facility] Work Phone: Start: 03-08-2022 End: 03-08-[address] [facility] Start: 03-08-2022 End: 03-08-2022 Dr. Koko Kent Work Phone: [facility]-Laboratory, Specimen Start: 02-26-2022 End: 02-26-[address] Koko Ketn Work Phone: [facility] Work Phone: Start: 02-26-2022 End: 02-26-[address] Koko Kent Work Phone: [facility] Start: 02-26-2022 End: 02-26-2022 Dr. Koko Kent Work Phone: [facility] Start: 02-22-2022 End: 02-22-[address] Koko Kent Work Phone: [facility] Work Phone: Start: 02-22-2022 End: 02-22-[address] Koko Kent Work Phone: [facility]-Laboratory, [facility] Start: 02-22-2022 End: 02-22-2022 Dr. Koko Kent Work Phone: [facility] Start: 02-19-2022 End: 02-19-[address] Koko Kent Work Phone: [facility] Start: 02-19-2022 End: 02-19-2022 Dr. Koko Kent Work Phone: [facility] Start: 02-16-2022 End: 02-16-[address] Koko Kent Work Phone: [facility] Work Phone: Start: 02-16-2022 End: 02-16-[address] Koko Kent Work Phone: [facility] Start: 02-16-2022 End: 02-16-2022 Dr. Koko Kent Work Phone: [facility] Start: 02-11-2022 End: 02-11-[address] Koko Kent Work Phone: [facility] Start: 02-11-2022 End: 02-11-2022 Dr. Koko Kent Work Phone: [facility] Start: 02-06-2022 Non-patient / Non-visit Dr. Koko Kent Work Phone: [facility] Start: 02-06-2022 Dr. Koko Kent Work Phone: [facility] Start: 02-06-2022 End: 02-06-2022 Evaluation and management of inpatient Dr. Koko Kent [facility] Start: 02-06-2022 End: 02-06-[address] Koko Kent Work Phone: [facility] Work Phone: Start: 02-06-2022 End: 02-06-2022 Dr. Koko Kent Work Phone: [facility] Surgical 3 Start: 02-03-2022 End: 02-03-2022 Patient encounter procedure Mally Morrison APRN.CNP Work Phone: [facility] Comment on above: Rash (Primary Dx) Start: 01-22-2022 End: 01-22-[address] Koko Kent Work Phone: [facility] Start: 01-22-2022 End: 01-22-2022 Dr. Koko Kent Work Phone: [facility] Start: 01-08-2022 End: 01-08-[address] Koko Kent Work Phone: [facility] Start: 01-08-2022 End: 01-08-2022 Dr. Koko Kent Work Phone: [facility] Start: 01-07-2022 End: 01-07-[address] Koko Kent Work Phone: [facility] Work Phone: Start: 01-07-2022 End: 01-07-[address] Koko Kent Work Phone: [facility] Start: 01-07-2022 End: 01-07-2022 Dr. Koko Kent Work Phone: [facility] Start: 01-06-2022 End: 01-06-2022 Emergency department patient visit Dr. Koko Kent Work Phone: [facility]-Emergency Department Start: 01-06-2022 End: 01-06-2022 Dr. Koko Kent Work Phone: [facility]-Emergency Department Start: 01-05-2022 End: 01-05-[address] Koko Kent Work Phone: [facility] Work Phone: Start: 01-05-2022 End: 01-05-[address] Koko Kent Work Phone: [facility] Start: 01-05-2022 End: 01-05-2022 Dr. Koko Kent Work Phone: [facility] Start: 12-30-2021 End: 12-30-[address] Koko Kent Work Phone: [facility] Work Phone: Start: 12-30-2021 End: 12-30-[address] Koko Kent Work Phone: [facility] Start: 12-30-2021 End: 12-30-2021 Dr. Koko Kent Work Phone: [facility] Start: 12-18-2021 End: 12-18-[address] Koko Kent Work Phone: [facility] Work Phone: Start: 12-18-2021 End: 12-18-[address] Koko Kent Work Phone: [facility]-Outpatient Breast Imaging Start: 12-15-2021 End: 12-15-[address] Koko Kent Work Phone: [facility] Work Phone: Start: 12-15-2021 End: 12-15-[address] Koko Kent Work Phone: [facility] Start: 12-10-2021 End: 12-10-2021 Admission to same day surgery center Dr. Koko Kent Work Phone: [facility]-Surgical Day Care Start: 12-10-2021 End: 12-10-[address] Koko Kent Work Phone: [facility] Work Phone: Start: 12-10-2021 Non-patient / Non-visit Dr. Koko Kent Work Phone: [facility] Start: 12-09-2021 End: 12-09-2021 Emergency department patient visit Dr. Koko Kent Work Phone: [facility]-Emergency Department Start: 12-08-2021 End: 12-08-[address] Koko Kent Work Phone: [facility] recruiting team lead Off Start: 11-27-2021 End: 11-27-[address] Koko Kent Work Phone: [facility] Work Phone: Start: 11-27-2021 End: 11-27-[address] Koko Kent Work Phone: [facility]-Laboratory, [employer] recruiting team lead Off Start: 11-25-2021 End: 11-25-[address] Koko Kent Work Phone: [facility]-Cat Scan, [facility] Start: 11-24-2021 End: 11-24-[address] Koko Kent Work Phone: [facility] Start: 11-05-2021 End: 11-05-[address] Koko eKnt Work Phone: [facility], [facility] Start: 10-29-2021 End: 10-29-2021 Emergency department patient visit ELFEGO ELIAS [facility] Start: 10-29-2021 End: 10-29-[address] Koko Kent [facility] Start: 10-26-2021 End: 10-26-2021 Emergency department patient visit Dr. Koko Kent Work Phone: [facility]-Emergency Department Start: 10-22-2021 End: 10-22-[address] Koko Kent [facility] Start: 10-20-2021 End: 10-20-[address] Koko Kent Work Phone: [facility] Start: 10-15-2021 End: 10-15-[address] Koko Kent Work Phone: [facility]-Laboratory Start: 10-13-2021 End: 10-13-2021 Emergency department patient visit Dr. Koko Kent Work Phone: [facility]-Emergency Department Start: 10-06-2021 Non-patient / Non-visit Dr. Koko Kent Work Phone: [facility] Start: 10-06-2021 End: 10-06-2021 Admission to same day surgery center Dr. Koko Kent Work Phone: [facility]-Endoscopy Start: 08-05-2021 End: 08-05-[address] Koko Kent Work Phone: [facility]-Laboratory, [facility] Start: 07-29-2021 End: 07-29-[address] Koko Kent Work Phone: [facility] Start: 07-24-2021 End: 07-24-[address] Koko [facility] Start: 07-24-2021 End: 07-24-[address] Koko Kent Work Phone: [facility] Start: 07-23-2021 End: 07-23-[address] Koko Kent Work Phone: [facility]-Laboratory, Specimen Start: 07-08-2021 End: 07-08-[address] Koko Kent Work Phone: [facility]-Radiology, [facility] Start: 07-01-2021 End: 07-01-2021 Evaluation and management of inpatient Dr. Koko Kent Work Phone: [facility]-Medical Surgical 3 Start: 06-29-2021 End: 06-29-2021 Emergency department patient visit Dr. Koko Kent Work Phone: [facility]-Emergency Department Start: 06-26-2021 End: 06-26-[address] Koko Stephenson Phone: [facility]-Pulmonary Services/Neurology Start: 06-17-2021 End: 06-17-[address] Koko Stephenson Phone: [facility] Start: 06-16-2021 End: 06-16-[address] Koko Stephenson Phone: [facility]-Laboratory Start: 06-16-2021 End: 06-16-[address] Koko Stephenson Phone: [facility] Start: 06-12-2021 End: 06-12-[address] K[facility] Stephenson [facility] Start: 06-05-2021 End: 06-05-[address] Koko Stephenson Phone: [facility] Start: 05-22-2021 End: 05-22-[address] Koko Stephenson Phone: [facility] Start: 05-12-2021 End: 05-12-[address] Koko Stephenson Phone: [facility] Start: 05-08-2021 End: 05-08-2021 Emergency department patient visit Dr. Koko Stephenson Phone: [facility]-Emergency Department Start: 05-05-2021 End: 05-05-[address] Koko Stephesnon Phone: [facility] Start: 04-30-2021 End: 04-30-2021 Emergency department patient visit Dr. Koko Stephenson Phone: [facility]-Emergency Department Start: 04-29-2021 Non-patient / Non-visit Dr. Koko Kent Work Phone: [facility] Start: 04-29-2021 End: 04-29-2021 Admission to same day surgery center Dr[facility] Koko Kent [facility] Start: 04-29-2021 Non-patient / Non-visit Dr. Koko Kent Work Phone: [facility] Start: 04-25-2021 End: 04-25-[address] Koko Kent Work Phone: [facility] Start: 04-23-2021 End: 04-23-[address] Koko Kent Work Phone: [facility] Start: 04-22-2021 End: 04-22-2021 Emergency department patient [facility] Koko Kent [facility] Start: 04-21-2021 End: 04-21-[address] Koko Kent Work Phone: [facility] Start: 04-17-2021 End: 04-17-[address] Koko Kent Work Phone: [facility] Int Med Virtual Start: 03-27-2021 End: 03-27-2021 Emergency department patient visit Dr. Koko Kent Work Phone: [facility]-Emergency Department Start: 03-23-2021 End: 03-23-[address] Koko Kent Work Phone: [facility] Virtual Procedures Date Procedure Procedure Detail Performing Clinician Start: 05-24-2024 Radiologic exam chest 2 views Mario Hidalgo BEAM BUILDER.PEARL DIGGER Work Phone: Start: 03-22-2024 Us pelvic nonobstetric real-time image complete Av Carter MD Work Phone: Start: 04-28-2022 Computed tomography of abdomen and pelvis with intravenous contrast Dr. Koko Kent Work Phone: Start: 04-17-2022 Plain chest X-ray Dr. Koko Kent Work Phone: Start: 04-16-2022 Plain chest X-ray Dr. Koko Kent Work Phone: Start: 02-26-[address] Koko Kent Work Phone: Start: 02-26-[address] Koko kim Work Phone: Start: 02-06-[address] Koko Kent Work Phone: Start: 02-06-2022 Computed tomography of abdomen and pelvis with intravenous contrast Dr. Koko Kent Work Phone: Start: 01-06-2022 Plain chest X-ray Dr. Koko Kent Work Phone: Start: 01-06-2022 CT of abdomen and pelvis without contrast Dr. Koko Kent Work Phone: Start: 01-05-[address] Koko kim Work Phone: Start: 12-30-2021 Diagnostic radiography of abdomen Dr. Koko Kent Work Phone: Start: 12-18-[address] Koko chun Work Phone: Start: 12-18-[address] Koko Kent Work Phone: Start: 12-10-[address] Koko Kent Work Phone: Start: 12-09-2021 CT of abdomen and pelvis without contrast Dr. Koko Kent Work Phone: Start: 11-25-2021 CT of abdomen and pelvis without contrast Dr. Koko Kent Work Phone: Start: 11-05-[address] Koko Kent Work Phone: Start: 10-13-2021 Diagnostic radiography of abdomen Dr. Koko Kent Work Phone: Start: 10-06-[address] Koko Kent Work Phone: Start: 07-24-[address] Koko Kent Work Phone: Start: 07-24-2021 Investigation of transfusion reaction Dr. Koko Kent Work Phone: Start: 07-24-2021 Microbial culture, routine Dr. Koko Kent Work Phone: Start: 07-23-[address] Koko Kent Work Phone: Start: 07-08-2021 Diagnostic radiography of abdomen Dr. Koko Kent Work Phone: Start: 07-01-2021 End: 07-01-[address] Koko Kent Work Phone: Start: 07-01-[address] Koko chun Work Phone: Start: 07-01-2021 Plain chest X-ray Dr. Koko Kent Work Phone: Start: 06-29-2021 CT of abdomen and pelvis without contrast Dr. Koko Kent Work Phone: Start: 05-08-2021 Computed tomography of abdomen and pelvis with intravenous contrast Dr. Koko Kent Work Phone: Start: 04-29-2021 Cholangiogram/ O R,Initial Dr. Koko Kent Work Phone: Start: 04-29-2021 O.R. Fluoro for C-Arm Dr. Koko chun Work Phone: Start: 04-25-[address] Koko Kent Work Phone: Start: 03-27-2021 Plain chest X-ray Dr. Koko Kent Work Phone: Start: 04-11-2020 Extracorporeal shockwave lithotripsy of calculus of kidney AVIVA AUSTIN [employer] Anaerobic microbial culture Dr. Koko Kent Work Phone: Cholecystectomy AVIVA EVANGELIST LÓ[employer] H/O: hysterectomy ELFEGO BOX OMJOSEFA DO History of appendectomy S/P appendectomy Dr. Koko Kent Work Phone: History of appendectomy History of append ectomy AVIVA [employer] [employer] History of cholecystectomy History of cholecystectomy Dr. Koko Kent Work Phone: History of cholecystectomy History of cholecystectomy [employer]IVA GEOVANNA [employer] History of thyroidectomy IESHA [employer] Influenza Types A,B Direct FA (GARCIA) Dr. Koko Kent Work Phone: Investigation of transfusion reaction Dr. Koko Kent Work Phone: Microbial culture, routine Dr. Koko Kent Work Phone: Urine culture Dr. Koko Kent Work Phone: Urine culture Dr. Koko Kent Work Phone: Urine culture Dr. Koko Kent Work Phone: Viral antigen assay Dr. Melinda Kent Work Phone: Dr. Koko hopson Work Phone: Plan of Treatment Date Care Activity Detail Author Start: 12-10-2024 Influenza vaccination Influenz a Vaccine (Season Ended) [facility] Start: 11-26-2024 End: 11-26-2024 Patient encounter procedure 11/26/2024 9:00 AM EDT Office Visit OB/Gynecology [address] [place] [address] Lianne Bowman MD [address] [place] [address] (Fax) Annual OB/Gynecology Comment on above: Annual Start: 05-17-2024 End: 05-17-2024 Patient encounter procedure 05/17/2024 8:40 AM EST Office Visit OB/Gynecology [address] [place] [address] Lianne Bowman MD [address] [place] [address] (Fax) Annual OB/Gynecology Comment on above: Annual Start: 03-22-2024 End: 03-22-2024 ambulatory 03/22/2024 10:00 AM EST Procedure OB/Gynecology [address] [place] [address] [facility], 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 [facility] [address] [place] [address] Cyst of left ovary [N83.202] OB/Gynecology Comment on above: Cyst of left ovary [ N83.202] Start: 03-21-2024 End: 06-20-2024 Cancer Ag 125 [Units/volume] in Serum or Plasma [facility] Work Phone: Comment on above: Expected: 03/21/2024 , Expires: 06/20/2024 Start: 03-21-2024 End: 06-20-2024 Cancer Ag 19-9 [Units/volume] in Serum or Plasma [facility] Comment on above: Expected: 03/21/2024 , Expires: 06/20/2024 Start: 03-21-2024 End: 06-20-2024 Carcinoembryonic Ag [Mass/volume] in Serum or Plasma [facility] Comment on above: Expected: 03/21/2024 , Expires: 06/20/2024 Start: 03-21-2024 End: 03-21-2025 US Pelvis PELVIC US [facility] Anc Imaging Routine Cyst of left ovary Expected: 03/21/2024, Expires: 03/21/2025 [facility] Comment on above: Expected: 03/21/2024 , Expires: 03/21/2025 Start: 12-11-2023 Covid-19 Vaccine () Covid-19 Vaccine () [facility] Start: 12-11-2023 Influenza vaccination Influenza Vacc ine (#1) [facility] Start: 2023 Screening for malign ant neoplasm of breast Mammogram Screening [facility] Start: 07-22-2023 HPV TESTING HPV TESTING [facility] Start: 07-22-2023 Screening for malign ant neoplasm of cervix HPV Testing [facility] Start: 02-07-2023 End: 02-08-2024 PELVIC US WHI PELVIC US [facility] Anc Imaging Routine Ovarian cyst, left Expected: 02/07/2023, Expires: 02/08/2024 [facility] Work Phone: Comment on above: Expected: 02/07/2023 , Expires: 02/08/2024 Start: 12-10-2022 Covid-19 Vaccine () Covid-19 Vaccine () [facility] Start: 12-10-2022 Influenza vaccination [facility] Start: 04-17-2022 External ecg scannin g analysis report [facility] Start: 04-17-2022 Xtrnl ecg & 48 hr recording [facility] Start: 04-16-2022 [facility] Start: 04-16-2022 Assay of free thyroxine [facility] Start: 04-16-2022 Assay of thyroid stimulating hormone tsh [facility] Start: 04-16-2022 Collection venous bl ood venipuncture [facility] Start: 04-16-2022 Comprehensive metabo lic panel [facility] Start: 02-26-2022 Urine microalbumin profile [facility] Start: 02-06-2022 Patient discharge [facility] Start: 02-06-2022 Application of intermittent pneumatic compression device [facility] Start: 02-06-2022 Anesthesia intraperitoneal lower abd w/laps nos [facility] Start: 02-06-2022 Laparoscopic appendectomy [facility] Start: 02-06-2022 Ambulation without limitation [facility] Start: 02-06-2022 Catheterization of vein [facility] Start: 02-06-2022 Incentive spirometry [facility] Start: 02-06-2022 Measuring intake and output [facility] Start: 02-06-2022 Notification of physician [facility] Start: 02-06-2022 Vital signs measurements [facility] Start: 02-06-2022 [facility] Start: 02-06-2022 Following clinical pathway protocol [facility] Start: 02-06-2022 Verification routine [facility] Work Phone: Start: 02-06-2022 Admission procedure [facility] Start: 02-06-2022 [facility] Work Phone: Start: 12-18-2021 Digital breast tomosynthesis bilateral BREAST TOMOSYNTHESIS BI [facility] Work Phone: Start: 12-10-2021 Anes lithotrp xtrcor p shock wave w/o water bath ANESTH KIDNEY STONE DESTRUCT [facility] Work Phone: Start: 12-10-2021 Influenza vaccination INFLUENZA (#1) [facility] Start: 12-10-2021 Lithotripsy xtrcorp shock wave FRAGMENTING OF KIDNEY STONE [facility] Work Phone: Start: 12-10-2021 Patient discharge [facility] Work Phone: Start: 12-09-2021 [facility] Work Phone: Start: 12-08-2021 Cancer antigen 19-9 measurement [facility] Work Phone: Start: 11-27-2021 Chlamydia deoxyribonucleic acid detection [facility] Work Phone: Start: 10-29-2021 5-Hydroxyindoleaceta te [Mass/volume] in 24 hour Urine [facility] Work Phone: Start: 10-22-2021 Elastase, pancreatic (el-1), fecal; quantitative [facility] Work Phone: Start: 10-22-2021 Protein measurement [facility] Work Phone: Start: 10-20-2021 Cancer antigen 19-9 measurement [facility] Work Phone: Start: 10-20-2021 Carcinoembryonic Ag [Mass/volume] in Serum or Plasma [facility] Work Phone: Start: 10-20-2021 Gastrin [Mass/volume ] in Serum or Plasma [facility] Work Phone: Start: 10-20-2021 Immunoglobulin measurement [facility] Work Phone: Start: 10-20-2021 Serum immunofixation [facility] Work Phone: Start: 10-20-2021 [facility] Work Phone: Start: 10-06-2021 Colonoscopy w/biopsy single/multiple COLONOSCOPY AND BIOPSY [facility] Work Phone: Start: 10-06-2021 Colsc flx w/rmvl of tumor polyp lesion snare tq COLONOSCOPY W/LESION REMOVAL [facility] Work Phone: Start: 10-06-2021 Egd transoral biopsy single/multiple EGD BIOPSY SINGLE/MULTIPLE [facility] Work Phone: Start: 10-06-2021 Patient discharge [facility] Work Phone: Start: 07-23-2021 Patient referral [facility] Work Phone: Start: 07-01-2021 Anes transurethral w/urethrocystoscopy nos ANESTH BLADDER SURGERY [facility] Work Phone: Start: 07-01-2021 Cysto w/insert urete ral stent CYSTOSCOPY AND TREATMENT [facility] Work Phone: Start: 07-01-2021 Patient discharge [facility] Work Phone: Start: 07-01-2021 Oxygen therapy [facility] Work Phone: Start: 07-01-2021 Admission procedure [facility] Work Phone: Start: 07-01-2021 Ambulation without limitation [facility] Work Phone: Start: 07-01-2021 Application of intermittent pneumatic compression device [facility] Work Phone: Start: 07-01-2021 Assessment of risk o f venous thromboembolism [facility] Work Phone: Start: 07-01-2021 Collection of urine and strain for calculus [facility] Work Phone: Start: 07-01-2021 Insertion of cathete r into peripheral vein [facility] Work Phone: Start: 07-01-2021 Measuring intake and output [facility] Work Phone: Start: 07-01-2021 Providing care accor ding to standard [facility] Work Phone: Start: 07-01-2021 End: 07-01-2021 [facility] Work Phone: Start: 07-01-2021 Following clinical pathway protocol [facility] Work Phone: Start: 04-29-2021 Anes intraperitoneal upper abdomen w/laps nos ANESTH SURG UPPER ABDOMEN [facility] Work Phone: Start: 04-29-2021 Laparoscopy surg cholecystectomy LAPAROSCOPIC CHOLECYSTECTOMY [facility] Work Phone: Start: 07-22-2019 PAP TESTING PAP TESTING [facility] Start: 07-22-2019 Screening for malign ant neoplasm of cervix [facility] Start: 09-21-2002 Hepatitis B Vaccine (1 of 3 - 19+ 3-dose series) Hepatitis B Vaccine (1 of 3 - 19+ 3-dose series) [facility] Start: 09-21-2002 Pneumococcal vaccination Pneum ococcal Vaccine (1 of 2 - PCV) [facility] Start: 09-21-2001 Anxiety Screening Anxiety Screening [facility] Start: 09-21-1989 PNEUMOCOCCAL (1 - PCV) PNEUMOCOCCAL (1 - PCV) [facility] Start: 09-21-1989 Pneumococcal vaccination [facility] Start: 03-23-1984 COVID-19 VACCINE (#1) COVID-19 VACCI NE (#1) [facility] Start: 1983 HEPATITIS B (1 of 3 - 3-dose series) HEPATITIS B (1 of 3 - 3-dose series) [facility] Start: 1985 Hepatitis B Vaccine (1 of 3 - 3-dose series) Hepatitis B Vaccine (1 of 3 - 3-dose series) [facility] 5-Hydroxyindoleaceta te [Mass/volume] in 24 hour Urine [facility] Work Phone: 5-Hydroxyindoleaceti c acid measurement [facility] Work Phone: Bacteria identified in Urine by Culture Urine Culture [facility] Work Phone: Celiac disease screen [facility] Work Phone: End: 03-08-2024 MARIYA SCREENING [facility] MARIYA SCREENING [facility] Radiology Routine Encounter for screening mammogram for malignant neoplasm of breast 1 Occurrences starting 02/07/2023 until 03/08/2024 [facility] Work Phone: Comment on above: 1 Occurrences starti ng 02/07/2023 until 03/08/2024 MR Biliary ducts and Pancreatic duct WO contrast [facility] Work Phone: Patient Education [facility] Work Phone: Patient referral [facility] Work Phone: Protein measurement [facility] Work Phone: Stress echocardiography [facility] Work Phone: Stress echocardiography [facility] Ultrasound elastography [facility] Work Phone: US Abdomen limited [facility] Work Phone: US Pelvis [facility] Work Phone: US Pelvis transvaginal [facility] Work Phone: End: 11-05-2023 Us soft tissue head & neck real time imge docm US THYROID/PARATHYROID Radiology Routine Globus sensation 1 Occurrences starting 10/06/2022 until 11/05/2023 [facility] Work Phone: Comment on above: 1 Occurrences starti ng 10/06/2022 until 11/05/2023 [facility] Immunizations Immunization Date Immunization Notes Care Provider Ariana rojas 04-06-2016 influenza virus vacc ine, unspecified formulation Lianne Bowman MD Work Phone: [facility] 03-08-2012 influenza virus vacc ine, unspecified formulation Mally Morrison APRN.[employer] Work Phone: [facility] 02-27-2012 tetanus toxoid, redu zacarias diphtheria toxoid, and acellular pertussis vaccine, adsorbed Mally Morrison APRN.[employer] Work Phone: [facility] Payers Date Payer Category Payer Self-pay [id number] 2022 Unknown [id number] 2012 Medicaid [id number] 2012 Unknown [id number] 2010 Medicaid [id number] 1983 Unknown [id number] 2.16.8 40.1.071359.3.579.2. 1983 Unknown [id number] 2.16.8 40.1.815077.3.579.2. 1983 Unknown [id number] 2.16.8 40.1.634785.3.579.2. 1983 Unknown [id number] 2.16.8 40.1.448418.3.579.2. 1983 Unknown [id number] 2.16.8 40.1.264461.3.579.2. 1983 Unknown [id number] 2.16.8 40.1.436829.3.579.2. 1983 Unknown [id number] 2.16.8 40.1.896596.3.579.2. 1983 Unknown [id number] 2.16.8 40.1.812575.3.579.2. 1983 Unknown [id number] 2.16.8 40.1.320082.3.579.2. 1983 Unknown [id number] 2.16.8 40.1.013192.3.579.2. 1983 Unknown [id number] 2.16.8 40.1.418363.3.579.2. 1983 Unknown [id number] 2.16.8 40.1.154294.3.579.2. 1983 Unknown [id number] 2.16.8 40.1.712879.3.579.2. 1983 Unknown [id number] 2.16.8 40.1.565728.3.579.2. 1983 Unknown [id number] 2.16.8 40.1.194990.3.579.2. Unknown [id number] Unknown [id number] 2.16.8 40.1.650934.3.579.2.462 Unknown [id number] 2.16.8 40.1.249090.3.579.2.462 Unknown [id number] 2.16.8 40.1.608301.3.579.2.462 Unknown [id number] 2.16.8 40.1.453156.3.579.2.462 Unknown [id number] 2.16.8 40.1.431152.3.579.2.462 Unknown [id number] 2.16.8 40.1.826891.3.579.2.462 Unknown [id number] 2.16.8 40.1.243837.3.579.2.462 Unknown [id number] 2.16.8 40.1.596778.3.579.2.462 Unknown [id number] 2.16.8 40.1.946099.3.579.2.462 Unknown [id number] 2.16.8 40.1.929777.3.579.2.462 Unknown [id number] 2.16.8 40.1.215287.3.579.2.462 Unknown [id number] 2.16.8 40.1.632435.3.579.2.462 Unknown [id number] 2.16.8 40.1.118994.3.579.2.462 Unknown [id number] 2.16.8 40.1.771283.3.579.2.462 Unknown [id number] 2.16.8 40.1.100998.3.579.2.462 Unknown [id number] 2.16.8 40.1.595227.3.579.2.462 Unknown [id number] 2.16.8 40.1.495969.3.579.2.462 Unknown [id number] 2.16.8 40.1.711281.3.579.2.462 Unknown [id number] 2.16.8 40.1.344074.3.579.2.462 Unknown [id number] 2.16.8 40.1.544373.3.579.2.462 Unknown [id number] 2.16.8 40.1.084331.3.579.2.462 Unknown [id number] 2.16.8 40.1.682081.3.579.2.462 Unknown [id number] 2.16.8 40.1.353164.3.579.2.462 Unknown [id number] 2.16.8 40.1.112422.3.579.2.462 Unknown [id number] 2.16.8 40.1.363024.3.579.2.462 Unknown [id number] 2.16.8 40.1.315179.3.579.2.462 Unknown [id number] 2.16.8 40.1.767684.3.579.2.462 Unknown [id number] 2.16.8 40.1.917059.3.579.2.462 Unknown [id number] 2.16.8 40.1.006390.3.579.2.462 Social History Date Type Detail Facility [facility] Work Phone: Start: 07-01-2021 End: 04-28-2022 Tobacco smoking status MSIS Unknown if ever smoked [facility] Start: 12-21-2018 None [facility] Start: 12-16-2019 With Family [facility] Start: 03-23-2021 Cigarettes [facility] Start: 1985 Sex Assigned At Female [facility] Start: 08-21-2020 End: 04-30-2024 Tobacco smoking status Heavy tobacco smoker (finding) [facility] Sex Assigned At [facility] Start: 10-03-2014 End: 03-21-2024 Tobacco smoking status NHIS Smokes tobacco daily [facility] History of tobacco use Cigarette Smoker [facility] Start: 10-03-2014 End: 10-06-2022 Cigarettes smoked current (pack per day) - Reported 1 [facility] Start: 10-03-2014 End: 03-21-2024 Tobacco use and exposure Smokeless tobacco non-user [facility] Start: 02-03-2022 End: 05-24-2024 Alcohol intake Current non-drinker of alcohol (finding) [facility] Start: 1985 Sex Assigned At Not on file C [facility] Start: 01-24-2022 End: 02-03-2022 Exposure to SARS-CoV-2 (event) Not sure [facility] Work Phone: Start: 10-06-2022 End: 02-07-2023 Tobacco use panel [facility] Adult Depression Screening Assessment 0 [facility] Start: 11-12-2016 Sex Female (finding) [facility] NEGATED: Highlighted row [facility] Medical Equipment Procedure Code Equipment Code Equipment Original Text Equipment Identifier Dates Total cholecystectomy with exploration of common bile duct [id number] FDA Start: 04-29-2021 Thyroidectomy SUTURE,LIGA CLIP MED LT200 FDA Start: 12-18-2018 Thyroidectomy SUTURE,LIGA CLIP SM LT-100 FDA Start: 12-18-2018 Thyroidectomy SUTURE,LIGA CLIP SM LT-100 FDA Start: 12-18-2018 Thyroidectomy SUTURE,LIGA CLIP MED LT200 FDA Start: 12-18-2018 Thyroidectomy SUTURE,LIGA CLIP SM LT-100 FDA Start: 12-18-2018 Thyroidectomy SUTURE,LIGA CLIP SM LT-100 FDA Start: 12-18-2018 Thyroidectomy SUTURE,LIGA CLIP MED LT200 FDA Start: 12-18-2018 Thyroidectomy SUTURE,LIGA CLIP SM LT-100 FDA Start: 12-18-2018 Thyroidectomy SUTURE,LIGA CLIP SM LT-100 FDA Start: 12-18-2018 Thyroidectomy SUTURE,LIGA CLIP MED LT200 FDA Start: 12-18-2018 Thyroidectomy SUTURE,LIGA CLIP SM LT-100 FDA Start: 12-18-2018 Thyroidectomy SUTURE,LIGA CLIP SM LT-100 FDA Start: 12-18-2018 Thyroidectomy SUTURE,LIGA CLIP MED LT200 FDA Start: 12-18-2018 Thyroidectomy SUTURE,LIGA CLIP SM LT-100 FDA Start: 12-18-2018 Thyroidectomy SUTURE,LIGA CLIP SM LT-100 FDA Start: 12-18-2018 Thyroidectomy SUTURE,LIGA CLIP MED LT200 FDA Start: 12-18-2018 Thyroidectomy SUTURE,LIGA CLIP SM LT-100 FDA Start: 12-18-2018 Thyroidectomy SUTURE,LIGA CLIP SM LT-100 FDA Start: 12-18-2018 Thyroidectomy SUTURE,LIGA CLIP MED LT200 FDA Start: 12-18-2018 Thyroidectomy SUTURE,LIGA CLIP SM LT-100 FDA Start: 12-18-2018 Thyroidectomy SUTURE,LIGA CLIP SM LT-100 FDA Start: 12-18-2018 Thyroidectomy SUTURE,LIGA CLIP MED LT200 FDA Start: 12-18-2018 Thyroidectomy SUTURE,LIGA CLIP SM LT-100 FDA Start: 12-18-2018 Thyroidectomy SUTURE,LIGA CLIP SM LT-100 FDA Start: 12-18-2018 Thyroidectomy SUTURE,LIGA CLIP MED LT200 FDA Start: 12-18-2018 Thyroidectomy SUTURE,LIGA CLIP SM LT-100 FDA Start: 12-18-2018 Thyroidectomy SUTURE,LIGA CLIP SM LT-100 FDA Start: 12-18-2018 Thyroidectomy SUTURE,LIGA CLIP MED LT200 FDA Start: 12-18-2018 Thyroidectomy SUTURE,LIGA CLIP SM LT-100 FDA Start: 12-18-2018 Thyroidectomy SUTURE,LIGA CLIP SM LT-100 FDA Start: 12-18-2018 Thyroidectomy SUTURE,LIGA CLIP MED LT200 FDA Start: 12-18-2018 Thyroidectomy SUTURE,LIGA CLIP SM LT-100 FDA Start: 12-18-2018 Thyroidectomy SUTURE,LIGA CLIP SM LT-100 FDA Start: 12-18-2018 Thyroidectomy SUTURE,LIGA CLIP MED LT200 FDA Start: 12-18-2018 Thyroidectomy SUTURE,LIGA CLIP SM LT-100 FDA Start: 12-18-2018 Thyroidectomy SUTURE,LIGA CLIP SM LT-100 FDA Start: 12-18-2018 Thyroidectomy SUTURE,LIGA CLIP MED LT200 FDA Start: 12-18-2018 Thyroidectomy SUTURE,LIGA CLIP SM LT-100 FDA Start: 12-18-2018 Thyroidectomy SUTURE,LIGA CLIP SM LT-100 FDA Start: 12-18-2018 Thyroidectomy SUTURE,LIGA CLIP MED LT200 FDA Start: 12-18-2018 Thyroidectomy SUTURE,LIGA CLIP SM LT-100 FDA Start: 12-18-2018 Thyroidectomy SUTURE,LIGA CLIP SM LT-100 FDA Start: 12-18-2018 Thyroidectomy SUTURE,LIGA CLIP MED LT200 FDA Start: 12-18-2018 Thyroidectomy SUTURE,LIGA CLIP SM LT-100 FDA Start: 12-18-2018 Thyroidectomy SUTURE,LIGA CLIP SM LT-100 FDA Start: 12-18-2018 Thyroidectomy SUTURE,LIGA CLIP MED LT200 FDA Start: 12-18-2018 Thyroidectomy SUTURE,LIGA CLIP SM LT-100 FDA Start: 12-18-2018 Thyroidectomy SUTURE,LIGA CLIP SM LT-100 FDA Start: 12-18-2018 Thyroidectomy SUTURE,LIGA CLIP MED LT200 FDA Start: 12-18-2018 Thyroidectomy SUTURE,LIGA CLIP SM LT-100 FDA Start: 12-18-2018 Thyroidectomy SUTURE,LIGA CLIP SM LT-100 FDA Start: 12-18-2018 Thyroidectomy SUTURE,LIGA CLIP MED LT200 FDA Start: 12-18-2018 Thyroidectomy SUTURE,LIGA CLIP SM LT-100 FDA Start: 12-18-2018 Thyroidectomy SUTURE,LIGA CLIP SM LT-100 FDA Start: 12-18-2018 Thyroidectomy SUTURE,LIGA CLIP MED LT200 FDA Start: 12-18-2018 Thyroidectomy SUTURE,LIGA CLIP SM LT-100 FDA Start: 12-18-2018 Thyroidectomy SUTURE,LIGA CLIP SM LT-100 FDA Start: 12-18-2018 Thyroidectomy SUTURE,LIGA CLIP MED LT200 FDA Start: 12-18-2018 Thyroidectomy SUTURE,LIGA CLIP SM LT-100 FDA Start: 12-18-2018 Thyroidectomy SUTURE,LIGA CLIP SM LT-100 FDA Start: 12-18-2018 Thyroidectomy SUTURE,LIGA CLIP MED LT200 FDA Start: 12-18-2018 Thyroidectomy SUTURE,LIGA CLIP SM LT-100 FDA Start: 12-18-2018 Thyroidectomy SUTURE,LIGA CLIP SM LT-100 FDA Start: 12-18-2018 Thyroidectomy SUTURE,LIGA CLIP MED LT200 FDA Start: 12-18-2018 Thyroidectomy SUTURE,LIGA CLIP SM LT-100 FDA Start: 12-18-2018 Thyroidectomy SUTURE,LIGA CLIP SM LT-100 FDA Start: 12-18-2018 Thyroidectomy SUTURE,LIGA CLIP MED LT200 FDA Start: 12-18-2018 Thyroidectomy SUTURE,LIGA CLIP SM LT-100 FDA Start: 12-18-2018 Thyroidectomy SUTURE,LIGA CLIP SM LT-100 FDA Start: 12-18-2018 Thyroidectomy SUTURE,LIGA CLIP MED LT200 FDA Start: 12-18-2018 Thyroidectomy SUTURE,LIGA CLIP SM LT-100 FDA Start: 12-18-2018 Thyroidectomy SUTURE,LIGA CLIP SM LT-100 FDA Start: 12-18-2018 Thyroidectomy SUTURE,LIGA CLIP MED LT200 FDA Start: 12-18-2018 Thyroidectomy SUTURE,LIGA CLIP SM LT-100 FDA Start: 12-18-2018 Thyroidectomy SUTURE,LIGA CLIP SM LT-100 FDA Start: 12-18-2018 Thyroidectomy SUTURE,LIGA CLIP MED LT200 FDA Start: 12-18-2018 Thyroidectomy SUTURE,LIGA CLIP SM LT-100 FDA Start: 12-18-2018 Thyroidectomy SUTURE,LIGA CLIP SM LT-100 FDA Start: 12-18-2018 Thyroidectomy SUTURE,LIGA CLIP MED LT200 FDA Start: 12-18-2018 Thyroidectomy SUTURE,LIGA CLIP SM LT-100 FDA Start: 12-18-2018 Thyroidectomy SUTURE,LIGA CLIP SM LT-100 FDA Start: 12-18-2018 Thyroidectomy SUTURE,LIGA CLIP MED LT200 FDA Start: 12-18-2018 Thyroidectomy SUTURE,LIGA CLIP SM LT-100 FDA Start: 12-18-2018 Thyroidectomy SUTURE,LIGA CLIP SM LT-100 FDA Start: 12-18-2018 Thyroidectomy FDA Start: 12-18-2018 Thyroidectomy FDA Start: 12-18-2018 Thyroidectomy FDA Start: 12-18-2018 Cystoscopy, with retrograde pyelogram and ureteral stent insertion STENT,URETERAL PIGTAIL 6FRx28 FDA Start: 07-01-2021 Cystoscopy, with retrograde pyelogram and ureteral stent insertion STENT,URETERAL PIGTAIL 6FRx28 FDA Start: 07-01-2021 Cystoscopy, with retrograde pyelogram and ureteral stent insertion STENT,URETERAL PIGTAIL 6FRx28 FDA Start: 07-01-2021 Cystoscopy, with retrograde pyelogram and ureteral stent insertion STENT,URETERAL PIGTAIL 6FRx28 FDA Start: 07-01-2021 Cystoscopy, with retrograde pyelogram and ureteral stent insertion STENT,URETERAL PIGTAIL 6FRx28 FDA Start: 07-01-2021 Cystoscopy, with retrograde pyelogram and ureteral stent insertion STENT,URETERAL PIGTAIL 6FRx28 FDA Start: 07-01-2021 Cystoscopy, with retrograde pyelogram and ureteral stent insertion STENT,URETERAL PIGTAIL 6FRx28 FDA Start: 07-01-2021 Cystoscopy, with retrograde pyelogram and ureteral stent insertion STENT,URETERAL PIGTAIL 6FRx28 FDA Start: 07-01-2021 Cystoscopy, with retrograde pyelogram and ureteral stent insertion STENT,URETERAL PIGTAIL 6FRx28 FDA Start: 07-01-2021 Cystoscopy, with retrograde pyelogram and ureteral stent insertion STENT,URETERAL PIGTAIL 6FRx28 FDA Start: 07-01-2021 Cystoscopy, with retrograde pyelogram and ureteral stent insertion STENT,URETERAL PIGTAIL 6FRx28 FDA Start: 07-01-2021 Cystoscopy, with retrograde pyelogram and ureteral stent insertion STENT,URETERAL PIGTAIL 6FRx28 FDA Start: 07-01-2021 Cystoscopy, with retrograde pyelogram and ureteral stent insertion STENT,URETERAL PIGTAIL 6FRx28 FDA Start: 07-01-2021 Cystoscopy, with retrograde pyelogram and ureteral stent insertion STENT,URETERAL PIGTAIL 6FRx28 FDA Start: 07-01-2021 Cystoscopy, with retrograde pyelogram and ureteral stent insertion STENT,URETERAL PIGTAIL 6FRx28 FDA Start: 07-01-2021 Cystoscopy, with retrograde pyelogram and ureteral stent insertion STENT,URETERAL PIGTAIL 6FRx28 FDA Start: 07-01-2021 Cystoscopy, with retrograde pyelogram and ureteral stent insertion STENT,URETERAL PIGTAIL 6FRx28 FDA Start: 07-01-2021 Cystoscopy, with retrograde pyelogram and ureteral stent insertion STENT,URETERAL PIGTAIL 6FRx28 FDA Start: 07-01-2021 Cystoscopy, with retrograde pyelogram and ureteral stent insertion STENT,URETERAL PIGTAIL 6FRx28 FDA Start: 07-01-2021 Cystoscopy, with retrograde pyelogram and ureteral stent insertion STENT,URETERAL PIGTAIL 6FRx28 FDA Start: 07-01-2021 Cystoscopy, with retrograde pyelogram and ureteral stent insertion STENT,URETERAL PIGTAIL 6FRx28 FDA Start: 07-01-2021 Cystoscopy, with retrograde pyelogram and ureteral stent insertion STENT,URETERAL PIGTAIL 6FRx28 FDA Start: 07-01-2021 Cystoscopy, with retrograde pyelogram and ureteral stent insertion STENT,URETERAL PIGTAIL 6FRx28 FDA Start: 07-01-2021 Cystoscopy, with retrograde pyelogram and ureteral stent insertion STENT,URETERAL PIGTAIL 6FRx28 FDA Start: 07-01-2021 Cystoscopy, with retrograde pyelogram and ureteral stent insertion STENT,URETERAL PIGTAIL 6FRx28 FDA Start: 07-01-2021 Cystoscopy, with retrograde pyelogram and ureteral stent insertion STENT,URETERAL PIGTAIL 6FRx28 FDA Start: 07-01-2021 Cystoscopy, with retrograde pyelogram and ureteral stent insertion STENT,URETERAL PIGTAIL 6FRx28 FDA Start: 07-01-2021 Cystoscopy, with retrograde pyelogram and ureteral stent insertion STENT,URETERAL PIGTAIL 6FRx28 FDA Start: 07-01-2021 Cystoscopy, with retrograde pyelogram and ureteral stent insertion FDA Start: 07-01-2021 Appendectomy, laparoscopic ()[id number] FDA Start: 02-06-2022 [id number] Start: 02-06-2013 End: 02-07-2023 Comment on above: Test blood sugar(s) as needed. Dx: E16.2 hypoglycemia . Insulin: No Test blood sugar(s) as needed times daily. Dx: hypoglycemia. Insulin: No Goals Date Patient Goal Desired Activity /State Functional Status Date Assessment Result Facility 05-04-2023 Functional Status Activity Kelly tanrob [facility] 05-04-2023 Functional Status Standard Safet y ID band on, Call device within reach, Bed in low position, Wheels locked [facility] 02-06-2022 Functional status Ambulates;Bath room Privilege [facility] Work Phone: 10-29-2021 Functional Status Independent [facility] 10-29-2021 Functional Status N/A [facility] 07-01-2021 Functional status Activity Abili ty [facility] Work Phone: 07-01-2021 Functional status Patient Activity Chair [facility] Work Phone: 04-29-2021 Functional status Ambulates [facility] Work Phone: 11-05-2014 Are you deaf, or do you have serious difficulty hearing No 11/05/2014 2:40 PM STEFFANYT Janell Horowitz LPN No [facility] 11-05-2014 Are you blind, or do you have serious difficulty seeing, even when wearing glasses No 11/05/2014 2:40 PM EDT Janell Horowitz LPN No [facility] 11-05-2014 Do you have serious difficulty walking or climbing stairs No 11/05/2014 2:40 PM EDT Janell Horowitz LPN No [facility] 11-05-2014 Do you have difficul ty dressing or bathing No 11/05/2014 2:40 PM EDT Janell Horowitz LPN No [facility] 11-05-2014 Because of a physica l, mental, or emotional condition, do you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 fall Dexterity difficulties: Yes -She notes difficulty with fine motor tasks such as buttoning clothes and opening bottles due to decreased sensation and strength in her fingers Pain 5/10 Pain worse with Reaching, lifting, and overhead activities Pain improved with rest, ice, and heat provide minimal relief, medical marijuana works best for my pain Interventions: PT - 4 years ago , medications, heat, ice Medications: medical marijuana, Cymbalta Past medications: Lynbrook, Gabapentin,Tylenol ibuprofen Physical Therapy: 4 years ago - made stuff worse. Treating Physicians: Aviva Austin PEARL DIGGER -PCP Mimi Aldridge PEARL DIGGER - [facility] History of Spine Injections/Surgery: None for cervical spine Lumbar TAQUERIA and RFA - last lumbar injection 4 years ago with pain management she stated last injection really messed up my back, I am never doing that again. Other Issues Addressed at the Visit Today: None. Precipitating Event: See HPI PAIN EVALUATION 08/12/2024 1009 08/13/2024 1043 Pain Level: 6 5 gets worse Pain Location: Neck Neck radiates to both arms Description: Aching;Burning;Dull;Numbness;Radiating ;Sharp;Shooting;Sore;Spasm;Stiffness;T hrob hieu;Tightness;Tingling Numbness;Tingling;Dull;Aching weakness on R arm Duration Amount of Time: 4 -- Duration Units: Years Years got worse in the last 2 months Frequency: Continuous Continuous Intervention/Comfort measure: Medication;Reposition;Relaxation;Aroma therapy to promote a healing environment;Cold;Education;Heat;Massag e;Positioning;Rocking/holding -- Litigation: No Workers' Compensation: No YELLOW AND BLUE FLAGS YES-Neg Attitude; Back Pain is Disabling YES-Avoiding Activity (for Fear of Pain) YES-Depression or Anxiety Disorders No-Social Problems No-Substance Use Disorder No-Job Dissatisfaction No-Financial Disincentives Patient Entered Questionnaires PROMIS Score Percentiles Percentiles provide an indication of how the patient's score ranks in relation to the general population. Higher percentile rankings indicate better function/quality of life. 50th percentile is the average of the general population and indicates half of respondents had a worse score. 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 [facility] 05-24-2024 History of Present illness Narrative Radiology Service Progress Note PATIENT NAME: Isabel Villeda DATE OF SERVICE: May 24, 2024 TIME: 9:31 AM PATIENT IDENTITY VERIFICATION COMPLETED USING TWO (2) IDENTIFIERS: Name and Date of confirmed by patient verbally. FALL SCREENING: Has the patient had 2 falls in the last year or 1 fall with injury or currently using an Ambulatory Assistive Device (Walker, Cane, Wheelchair, Crutches, etc.)? No PATIENT GENDER DATA: Assigned female at . status: : No status: NO. PATIENT RELEVANT IMPLANT DATA REVIEWED: Not Applicable PATIENT PRESENTS WITH AN IMPLANTABLE OR ATTACHED CONSERVATION COORDINATOR: No RADIOLOGY DEPARTMENT: General X-ray: Exam(s) Completed: Chest X-Ray PERIPHERAL IV DATA: Not applicable SIGNED BY: RT Jaelyn(Nuha) May 24, 2024 9:31 AM documented in this encounter [facility] 05-24-2024 Note HNO ID: [id number] Author: ANGE MALDONADO RT(R) Service: Radiology Author Type: Technologist Type: Progress Notes Filed: 05/24/2024 09:37 Note Text: Radiology Service Progress Note PATIENT NAME: Isabel Villeda DATE OF SERVICE: May 24, 2024 TIME: 9:31 AM PATIENT IDENTITY VERIFICATION COMPLETED USING TWO (2) IDENTIFIERS: Name and Date of confirmed by patient verbally. FALL SCREENING: Has the patient had 2 falls in the last year or 1 fall with injury or currently using an Ambulatory Assistive Device (Walker, Cane, Wheelchair, Crutches, etc.)? No PATIENT GENDER DATA: Assigned female at . status: : No status: NO. PATIENT RELEVANT IMPLANT DATA REVIEWED: Not Applicable PATIENT PRESENTS WITH AN IMPLANTABLE OR ATTACHED CONSERVATION COORDINATOR: No RADIOLOGY DEPARTMENT: General X-ray: Exam(s) Completed: Chest X-Ray PERIPHERAL IV DATA: Not applicable SIGNED BY: Ange Maldonado RT(R) May 24, 2024 9:31 AM [facility] 05-24-2024 Note HNO ID: [id number] Author: MARIO HIDALGO APRN.PEARL DIGGER Service: ? Author Type: Nurse Practitioner Type: Progress Notes Filed: 05/24/2024 09:53 Note Text: Subjective HPI Nontoxic-appearing 38-year-old female presents urgent care chief complaint rib pain. Duration of symptoms 1 week. Associated symptoms left-sided rib pain. States recently got over a gastroenteritis. Was vomiting forcefully. Presents today with left-sided rib pain. States it is tender with coughing or taking a deep breath. No OTC medications. Denies that he hemoptysis productive cough shortness of breath leg pain. Is not taking control. Is not . No history of DVTs PEs. Past medical history prescription medications allergies reviewed. .Patient presents with: Cough: Chest congestion, left side lung pain with cough, fatigue, headache, some wheezing x 1 week PAST MEDICAL HISTORY Diagnosis Date Abnormal glandular Papanicolaou smear of cervix 2009 Abn. Pap smear (cervix) Backache, unspecified Chronic low back pain Bipolar disorder (HCC) Chlamydia 2001 Depressive disorder, not elsewhere classified Excessive or frequent menstruation Herniated intervertebral disk degenerative Hydrosalpinx 03/22/2024 Kidney stone on right side per pcp Malignant neoplasm of thyroid gland (HCC) 12/2018 [...] Still has ovaries OVARIAN CYSTECTOMY Right 07/2022 both tubes removed, right ovarian hemorrhagic corpus luteum, had adhesions per op report, PAST SURGICAL HISTORY OF EXTRACTION OF 2 TEETH PAST SURGICAL HISTORY OF EXCISION OF FACIAL CYST PT ED OBSTETRICS AND GYNECOLOGY removal of fallopian tubes REMOVAL GALLBLADDER 04/2021 THYROIDECTOMY TOTAL/COMPLETE Bilateral 12/2018 UNLISTED LAPAROSCOPY PROCEDURE APPENDIX 01/2022 ALLERGIES Codeine, Naproxen, and Prozac [Fluoxetine Hcl] MEDICATIONS DULoxetine (CYMBALTA) 20 mg capsule Take 20 mg by mouth daily at bedtime. cyanocobalamin/cobamamide (B12 SUBLINGUAL) Dissolve 1,000 mg under the tongue once daily. calcitriol (ROCALTROL) 0.5 mcg capsule Take 0.5 mcg by mouth once daily. 3-4 a day amitriptyline (ELAVIL) 25 mg tablet Take 25 mg by mouth daily at bedtime. dicyclomine HCl (BENTYL ORAL) Take 20 mg by mouth three times a day as needed (diarrhea). pantoprazole DR (PROTONIX) 40 mg tablet Take 1 tablet by mouth twice daily. (Patient taking differently: Take 40 mg by mouth once daily.) ondansetron (ZOFRAN) 4 mg tablet Take 1 tablet by mouth every 8 hours as needed for nausea/vomiting. ketoconazole (NIZORAL) 2 % shampoo USE DIRECTED TWICE WEEKLY tiZANidine (ZANAFLEX) 4 mg tablet Take 4 mg by mouth every 8 hours as needed (back muscle spasms). levothyroxine (LEVOXYL) 100 mcg tablet Take 1 tablet by mouth once daily. (Patient taking differently: Take 150 mcg by mouth once daily.) Lancets (FREESTYLE LANCETS) lancets Test blood sugar(s) as needed times daily. Dx: hypoglycemia. Insulin: No acetaminophen (TYLENOL ARTHRITIS ORAL) Take by mouth. (Patient not taking: Reported on 05/24/2024) sennosides (LAXATIVE ORAL) Take by mouth. (Patient not taking: Reported on 10/06/2022) ondansetron orally disintegrating (ZOFRAN ODT) 4 mg disintegrating tablet EVERY 8 HOURS NEEDED PRN For Nausea (Patient not taking: No sig reported) polyethylene glycol 3350 (MIRALAX) 17 gram/dose powder Mix in 2 quarts of water or desired liquid, start drinking after 5:00. (Patient not taking: Reported on 02/07/2019) terbinafine HCl (LAMISIL) 250 mg tablet Take 250 mg by mouth once daily. (Patient not taking: Reported on 07/19/2020) FAMILY HISTORY Problem Relation Age of Onset Diabetes Mother Hypertension Mother Arthritis Mother Liver Disease Father Diabetes Brother Diabetes Maternal Grandmother Heart Paternal Grandmother Heart Paternal Grandfather RI Diabetes Maternal Aunt X-5 Social History Tobacco Use Smoking status: Every Day Current packs/day: 1.00 Average packs/day: 1 pack/day for 13.0 years (13.0 ttl pk-yrs) Types: Cigarettes Smokeless tobacco: Never Vaping Use Vaping status: Never Used Substance Use Topics Alcohol use: No Drug use: No BP 130/89 Pulse 77 Temp 36.4 ?C (97.5 ?F) Resp 20 Wt 85 kg (187 lb 6.3 oz) LMP 10/01/2013 SpO2 100% B (more content not included)... [facility] 05-24-2024 History of Present illness Narrative Images from the original note were not included. Subjective HPI Nontoxic-appearing 38-year-old female presents urgent care chief complaint rib pain. Duration of symptoms 1 week. Associated symptoms left-sided rib pain. States recently got over a gastroenteritis. Was vomiting forcefully. Presents today with left-sided rib pain. States it is tender with coughing or taking a deep breath. No OTC medications. Denies that he hemoptysis productive cough shortness of breath leg pain. Is not taking control. Is not . No history of DVTs PEs. Past medical history prescription medications allergies reviewed. .Patient presents with: Cough: Chest congestion, left side lung pain with cough, fatigue, headache, some wheezing x 1 week PAST MEDICAL HISTORY Diagnosis Date Abnormal glandular Papanicolaou smear of cervix 2009 Abn. Pap smear (cervix) Backache, unspecified Chronic low back pain Bipolar disorder (HCC) Chlamydia 2002 Depressive disorder, not elsewhere classified Excessive or frequent menstruation Herniated intervertebral disk degenerative Hydrosalpinx 03/22/2024 Kidney stone on right side per pcp Malignant neoplasm of thyroid gland (HCC) 12/2018 [...] Still has ovaries OVARIAN CYSTECTOMY Right 07/2022 both tubes removed, right ovarian hemorrhagic corpus luteum, had adhesions per op report, PAST SURGICAL HISTORY OF EXTRACTION OF 2 TEETH PAST SURGICAL HISTORY OF EXCISION OF FACIAL CYST PT ED OBSTETRICS & GYNECOLOGY removal of fallopian tubes REMOVAL GALLBLADDER 04/2021 THYROIDECTOMY TOTAL/COMPLETE Bilateral 12/2018 UNLISTED LAPAROSCOPY PROCEDURE APPENDIX 01/2022 ALLERGIES Codeine, Naproxen, and Prozac [Fluoxetine Hcl] MEDICATIONS DULoxetine (CYMBALTA) 20 mg capsule Take 20 mg by mouth daily at bedtime. cyanocobalamin/cobamamide (B12 SUBLINGUAL) Dissolve 1,000 mg under the tongue once daily. calcitriol (ROCALTROL) 0.5 mcg capsule Take 0.5 mcg by mouth once daily. 3-4 a day amitriptyline (ELAVIL) 25 mg tablet Take 25 mg by mouth daily at bedtime. dicyclomine HCl (BENTYL ORAL) Take 20 mg by mouth three times a day as needed (diarrhea). pantoprazole DR (PROTONIX) 40 mg tablet Take 1 tablet by mouth twice daily. (Patient taking differently: Take 40 mg by mouth once daily.) ondansetron (ZOFRAN) 4 mg tablet Take 1 tablet by mouth every 8 hours as needed for nausea/vomiting. ketoconazole (NIZORAL) 2 % shampoo USE DIRECTED TWICE WEEKLY tiZANidine (ZANAFLEX) 4 mg tablet Take 4 mg by mouth every 8 hours as needed (back muscle spasms). levothyroxine (LEVOXYL) 100 mcg tablet Take 1 tablet by mouth once daily. (Patient taking differently: Take 150 mcg by mouth once daily.) Lancets (FREESTYLE LANCETS) lancets Test blood sugar(s) as needed times daily. Dx: hypoglycemia. Insulin: No acetaminophen (TYLENOL ARTHRITIS ORAL) Take by mouth. (Patient not taking: Reported on 05/24/2024) sennosides (LAXATIVE ORAL) Take by mouth. (Patient not taking: Reported on 10/06/2022) ondansetron orally disintegrating (ZOFRAN ODT) 4 mg disintegrating tablet EVERY 8 HOURS NEEDED PRN For Nausea (Patient not taking: No sig reported) polyethylene glycol 3350 (MIRALAX) 17 gram/dose powder Mix in 2 quarts of water or desired liquid, start drinking after 5:00. (Patient not taking: Reported on 02/07/2019) terbinafine HCl (LAMISIL) 250 mg tablet Take 250 mg by mouth once daily. (Patient not taking: Reported on 07/19/2020) FAMILY HISTORY Problem Relation Age of Onset Diabetes Mother Hypertension Mother Arthritis Mother Liver Disease Father Diabetes Brother Diabetes Maternal Grandmother Heart Paternal Grandmother Heart Paternal Grandfather RI Diabetes Maternal Aunt X-5 Social History Tobacco Use Smoking status: Every Day Current packs/day: 1.00 Average packs/day: 1 pack/day for 13.0 years (13.0 ttl pk-yrs) Types: Cigarettes Smokeless tobacco: Never Vaping Use Vaping status: Never Used Substance Use Topics Alcohol use: No Drug use: No BP 130/89 Pulse 77 Temp 36.4 C (97.5 F) Resp 20 Wt 85 kg (187 lb 6.3 oz) LMP 10/01/2013 SpO2 100% BMI 26.89 kg/m Review of Systems Constitutional: Negative for chills, fever and malaise/fatigue. HENT: Negative for congestion, ear discharge, ear pain, sinus pain and sore throat. Eyes: Negative for blurred vision, pain, discharge and redness. Respiratory: Negative for cough, hemoptysis, sputum production, shortness of breath, wheezing and stridor. Cardiovascular: Negative for chest pain. Gastrointestinal: Negative for abdominal pain, diarrhea, nausea and vomiting. Musculoskeletal: Negative for myalgias. Rib pain Skin: Negative for itching and rash. Neurological: Negative for dizziness and headaches. Objective Physical Exam Constitutional: General: She is not in acute distress. Appearance: She is not diaphoretic. HENT: Head: Normocephalic. Jaw: No trismus, tenderness, swelling or pain on movement. Nose: Nose normal. Mouth/Throat: Mouth: Mucous membranes are moist. Pharynx: Oropharynx is clear. Uvula midline. No pharyngeal swelling, oropharyngeal exudate, posterior oropharyngeal erythema or uvula swelling. Eyes: Conjunctiva/sclera: Conjunctivae normal. Pupils: Pupils are equal, round, and reactive to light. Cardiovascular: Rate and Rhythm: Normal rate and regular rhythm. Heart sounds: Normal heart sounds. Pulmonary: Effort: Pulmonary effort is normal. No tachypnea, accessory muscle usage or respiratory distress. Breath sounds: Normal breath sounds. No stridor. No wheezing, rhonchi or rales. Abdominal: General: There is no distension. Palpations: Abdomen is soft. Tenderness: There is no abdominal tenderness. There is no guarding or rebound. Musculoskeletal: Arms: Cervical back: Normal range of motion and neck supple. No edema, erythema, rigidity or tenderness. No pain with movement. Normal range of motion. Comments: Point tenderness with palpation highlighted area. No rashes erythema edema or crepitus. Pain reproducible with movements. Lymphadenopathy: Cervical: No cervical adenopathy. Skin: General: Skin is warm and dry. Neurological: Mental Status: She is alert and oriented to person, place, and time. ASSESSMENT/PLAN: 1. Rib pain - ICD9: 786.50, ICD10: R07.81 IMPRESSION: No acute radiographic abnormality. Diagnosed with rib pain. Suspicious of mechanical injury. Hemodynamically stable. No abnormal findings on chest x-ray. Patient was educated on supportive therapies. Patient will follow up with primary care provider as needed. Patient was instructed to immediately proceed to emergency room for any new, worsening, or symptoms lasting longer than anticipated. The patient's clinical presentation is otherwise unremarkable at this time. Based on exam and clinical finding, the patient is stable for discharge. Plan of care was discussed with patient. Patient verbalizes understanding and agrees to plan of care. This note was generated using [employer] software. It may contain errors in wording, punctuation, or spelling. Mario Hidalgo APRN.PEARL DIGGER documented in this encounter [facility] 05-11-2024 Note [facility] Medical Records Department [address] [place] [address] History Physical Exam 05/11/24 1220 MR#: [id number] Acct: [id number] Name: ISABEL VILLEDA Rep #: [id number] : 1985 38 From: Jules Friend DO PCP: FREDY Quiroz Status:[facility] Location: [place] [address] HPI - General General Date of Admission: 05/11/24 Date of Service: 05/11/24 Chief Complaint: Abdominal pain and change in bowels HPI Narrative ISABEL VILLEDA, is a 38 F who presents to endoscopy today to evaluate her abdominal pain and or change of bowel movements. Thyroid nodule .. 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 *BGI established 3.8.22 with constipation, abdominal bloating/pain and a history of diverticulosis. Constipation present several years prior with use of Dulcolax to promote BM. EGD and colonoscopy with [facility] found hiatal hernia and hemorrhoids. Intermittent RUQ pain began with worsening in s/p cholecystectomy performed by Dr. Rob. Following this she had a resolution of constipation and nausea. Stools then watery or soft with tenesmus, urgency and lower abdominal cramping prior to BM and increased bloating postprandially with distention. Unintentional weight loss of 30lbs in the last five months also noted. ? Biochemical workup / CBC, CMP, lipase, T4, CRP, ESR, celiac and KATHI comp WNL. ? AST L12/ALTWNL/AP L41, TSH 11.60H (normal ) ? CT abd/pel 06.29.21 hydronephrosis and 4mm calculus ??? stent placed 07.01.21. ? EGD and colonoscopy 10.06.21. EGD irregular Z-line 38 cm from incisors; congestive gastropathy; benign duodenal mass, metaplasia; chronic duodenitis. ? Colonoscopy perianal hemorrhoids; one 5mm TA polyp at splenic flexure; congested mucosa of RS, descending, transverse colons and cecum. ? Acute abdomen series .08.30 without acute or chronic abnormality. OV 10.20.21 ongoing abdominal pain RUQ/R mid abdomen and bloating can be related to food intake but this is not a rule. Nausea and belching has resolved. Weight loss has slowed; weight loss of 40lbs in the last six months. BM are normal; but continues to have tenesmus. Protonix caused her to feel fatigued; she has been using 1-2 TUMs each day and feels this helps with her indigestion feeling. ? Biochemical TOBIAS, CEA, CA19-9, ANCA, gastrin, LDH, globulin without pertinent abnormality. ? Stool calprotectin, elastase WNL ? Urine 5HIAA WNL ? US complete 11.05.21 hepatomegaly 17.2cm with fatty infiltration; increased echogenicity of pancreas. ? CT 11.25.21 hepatomegaly 26.1x16.7x13.2; renal calculi; diverticulosis; bilateral inguinal lymphadenopathy; prominent ovaries with adjacent stranding. OV 9.6.22 continues to have epigastric fullness, poor appetite, nausea, intermittent epigastric pain. Constipation has normalized with periodic loose stools with some urgency. Perform workup in relation to positive pancreaticobiliary carcinoma markers and increased pancreatic echogenicity. ? Biochemical HIV, CRP, ferritin, coagulation, ESR, AMA, hepatitis, ANOOP, AFP, ASM, ceruloplasmin, copper, haptoglobin, ammonia without pertinent abnormality. ? A1c H5.7 ? MRCP denied by insurance. ? Elastography 01.05.22 stiffness 6.3kPa [facility] ED 02.06.22 with RLQ pain with concern for appendicitis. WSA consulted with emergent appendectomy performed, pathology positive for acute early appendicitis. ? CT abd/pel 02.06.22 hepatomegaly; fluid filled small bowel loops; early appendicitis inflammation; small umbilical hernia. OV 11.3.22 Reattempt MRCP. Linzess 145 mcg samples provided. Discuss NAFLD at a later time (FH mother had cirrhosis). ? MRCP denied by insurance. ? Upper GI SBFT 1.24.23 without acute/chronic finding. OV 1.30. dicyclomine is helpful with slowing of bowels and cramping. Some postprandial lose BM. HIDA 2.8.23 s/p cholecystectomy. Normal. MRCP 2.14.23 without acute/chronic finding. [facility] ED 3.16. with flank pain. Discharged without acute finding. CT abd/pel normal liver and pancreas. N (more content not included)... [facility] 04-09-2024 Telephone encounter Note Left detailed message on Pt's phone with [facility] # and advised Pt to call and get appointment scheduled and to call our office if she has any questions/concerns. [employer] message also sent to Pt. Gunjan Momin RN [facility] 04-09-2024 Miscellaneous Notes Left detailed message on Pt's phone with MIGS # and advised Pt to call and get appointment scheduled and to call our office if she has any questions/concerns. Paice message also sent to Pt. Gunjan Momin RN Images from the original note were not included. Av Carter MD You34 minutes ago (10:28 AM) Patient called and is willing t pursue further evaluation and potential surgery with [facility]. Please refer accordingly. Order placed., MD Emma Le Anthony P, MD You45 minutes ago (10:17 AM) Agree with Dr. Bowman's assessment. Given the suggestion of an adherent ovary a referral/consult to [facility] is appropriate as a next stem to further evaluate and potentially resolve her pain. Av Carter MD Patient notified of RR not comfortable doing surgery and we're waiting for AT to return to recommend the next step. Khushboo Hernandez RN ----- Message from Lianne Bowman MD sent at 04/05/2024 9:04 AM EST ----- I reviewed op report. Patient has had chronic pelvic pain and had surgery in 2022. Had adhesions of left tube and left ovary adhered to sidewall. I am not comfortable doing surgery on her. Recommend [facility] or pelvic pain clinic to manage pain as unlikely surgery will completely alleviate pain. Consider pelvic floor PT if any levator dysfunction or functional pain. Lianne Bowman MD ----- Message ----- From: Khushboo Hernandez RN Sent: 04/02/2024 3:36 PM EST To: Lianne Bowman MD Did Dr. Carter discuss this with you? Are we to schedule a follow up with you first? ----- Message ----- From: Av Carter MD Sent: 04/02/2024 10:02 AM EST To: Lianne Bowman MD; Wstr Ob-Shift Supervisor Rn Pool Persistent, symptomatic hydrosalpinx needs addressed Would like to f/u with Dr. Luis Carter MD documented in this encounter [facility] 04-09-2024 Telephone encounter Note Images from the original note were not included. Av Carter MD You34 minutes ago (10:28 AM) Patient called and is willing t pursue further evaluation and potential surgery with [facility]. Please refer accordingly. Order placed., MD Emma Le Anthony P, MD You45 minutes ago (10:17 AM) Agree with Dr. Bowman's assessment. Given the suggestion of an adherent ovary a referral/consult to [facility] is appropriate as a next stem to further evaluate and potentially resolve her pain. Av Carter MD [facility] 04-05-2024 Telephone encounter Note Patient notified of RR not comfortable doing surgery and we're waiting for AT to return to recommend the next step. Khushboo Hernandez RN [facility] 04-05-2024 Telephone encounter Note ----- Message from Lianne Bowman MD sent at 04/05/2024 9:04 AM EST ----- I reviewed op report. Patient has had chronic pelvic pain and had surgery in 2022. Had adhesions of left tube and left ovary adhered to sidewall. I am not comfortable doing surgery on her. Recommend [facility] or pelvic pain clinic to manage pain as unlikely surgery will completely alleviate pain. Consider pelvic floor PT if any levator dysfunction or functional pain. Lianne Bowman MD ----- Message ----- From: Khushboo Hernandez RN Sent: 04/02/2024 3:36 PM EST To: Lianne Bowman MD Did Dr. Carter discuss this with you? Are we to schedule a follow up with you first? ----- Message ----- From: Av Carter MD Sent: 04/02/2024 10:02 AM EST To: Lianne Bowman MD; [facility] Ob-Shift Supervisor Rn Pool Persistent, symptomatic hydrosalpinx needs addressed Would like to f/u with Dr. Luis Carter MD [facility] 03-22-2024 Note HNO ID: [id number] Author: KENNETH VASQUEZ MD Service: ? Author Type: Physician Type: Progress Notes Filed: 03/22/2024 13:47 Note Text: The patient presents for requested ultrasound. Full report available in the Imaging tab in [email or web address]. Kenneth Vasquez MD [facility] 03-22-2024 History of Present illness Narrative The patient presents for requested ultrasound. Full report available in the Imaging tab in [email or web address]. Kenneth Vasquez MD documented in this encounter [facility] 03-21-2024 Note HNO ID: [id number] Author: AV CARTER MD Service: ? Author Type: Physician Type: Progress Notes Filed: 03/21/2024 10:02 Note Text: Handbook Writer offered: Patient accepts, visit chaperoned by Magi Hensley ma. Isabel Villeda is a 38 year old female who presents for problem visit to evaluate incidental finding of a left 5 cm complex ovarian cyst noted on imaging at the [facility] on 01/29/24. HPI: TVH for bleeding and pain. Subsequent laparoscopic bilateral salpingectomy for pain that resolved postoperatively. OB History T2 L4 SAB0 IAB0 Ectopic0 Multiple0 Live Births4 Shift Supervisor Rn History LMP: 10/01/2013, Hysterectomy Age at Menarche: Age at First : Age at Menopause: Shift Supervisor Rn History Comments: Sexual Activity: Not Currently; Male; Hysterectomy Contraception: Surgical PAST MEDICAL HISTORY Diagnosis Date Abnormal glandular Papanicolaou smear of cervix 2010 Abn. Pap smear (cervix) Backache, unspecified Chronic low back pain Bipolar disorder (HCC) Chlamydia 2002 Depressive disorder, not elsewhere classified Excessive or frequent menstruation Herniated intervertebral disk degenerative Kidney stone on right side per pcp Malignant neoplasm of thyroid gland (HCC) 12/2018 [...] Still has ovaries OVARIAN CYSTECTOMY Right 07/2022 both tubes removed, right ovarian hemorrhagic corpus luteum, had adhesions per op report, PAST SURGICAL HISTORY OF EXTRACTION OF 2 TEETH PAST SURGICAL HISTORY OF EXCISION OF FACIAL CYST PT ED OBSTETRICS AND GYNECOLOGY removal of fallopian tubes REMOVAL GALLBLADDER 04/2021 THYROIDECTOMY TOTAL/COMPLETE Bilateral 12/2018 UNLISTED LAPAROSCOPY PROCEDURE APPENDIX 01/2022 FAMILY HISTORY Problem Relation Age of Onset Diabetes Mother Hypertension Mother Arthritis Mother Liver Disease Father Diabetes Brother Diabetes Maternal Grandmother Heart Paternal Grandmother Heart Paternal Grandfather RI Diabetes Maternal Aunt X-5 Social History Tobacco Use Smoking status: Every Day Current packs/day: 1.00 Average packs/day: 1 pack/day for 13.0 years (13.0 ttl pk-yrs) Types: Cigarettes Smokeless tobacco: Never Vaping Use Vaping status: Never Used Substance Use Topics Alcohol use: No Drug use: No Current Outpatient Medications Medication Sig calcitriol (ROCALTROL) 0.5 mcg capsule Take 0.5 mcg by mouth once daily. 3-4 a day amitriptyline (ELAVIL) 25 mg tablet Take 25 mg by mouth daily at bedtime. dicyclomine HCl (BENTYL ORAL) Take 20 mg [...] A DAY March 13, 2019 3:48pm 03-13-2019 [facility] ([id number]) levothyroxine (LEVOXYL) 100 mcg tablet Take 1 tablet by mouth once daily. pantoprazole DR (PROTONIX) 40 mg tablet Take 1 tablet by mouth twice daily. (Patient not taking: Reported on 06/25/2021 ) sennosides (LAXATIVE ORAL) Take by mouth. (Patient not taking: Reported on 10/06/2022) ondansetron orally disintegrating (ZOFRAN ODT) 4 mg disintegrating tablet EVERY 8 HOURS NEEDED PRN For Nausea (Patient not taking: Reported on 07/19/2020) polyethylene glycol 3350 (MIRALAX) 17 gram/dose powder Mix in 2 quarts of water or desired liquid, start drinking after 5:00. (Patient not taking: Reported on 02/07/2019 ) terbinafine HCl (LAMISIL) 250 mg tablet Take 250 mg by mouth once daily. (Patient not taking: Reported on 07/19/2020 ) Lancets (FREESTYLE LANCETS) lancets Test blood sugar(s) as needed times daily. Dx: hypoglycemia. Insulin: No No current facility-administered medications for this visit. Allergies As of Date: 03/21/2024 Allergen Noted Reaction CODEINE 01/04/2005 GI Upset NAPROXEN 01/04/2005 PROZAC [FLUOXETINE HCL] 01/06/2016 Intolerance Fully Assessed 03/21/2024 REVIEW OF SYSTEMS Abdomen: abdominal pain and bloating persists Bladder: No dysuria, gross hematuria, urinary frequency, urinary urgency, or incontinence. Breast: No breast lumps, nipple d/c, overlying sk (more content not included)... [facility] 03-21-2024 History of Present illness Narrative Handbook Writer offered: Patient accepts, visit chaperoned by Magi Hensley ma. Isabel Villeda is a 38 year old female who presents for problem visit to evaluate incidental finding of a left 5 cm complex ovarian cyst noted on imaging at the [facility] on 01/29/24. HPI: TVH for bleeding and pain. Subsequent laparoscopic bilateral salpingectomy for pain that resolved postoperatively. 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 Pap smear (cervix) Backache, unspecified Chronic low back pain Bipolar disorder (HCC) Chlamydia 2001 Depressive disorder, not elsewhere classified Excessive or frequent menstruation Herniated intervertebral disk degenerative Kidney stone on right side per pcp Malignant neoplasm of thyroid gland (HCC) 12/2018 [...] Still has ovaries OVARIAN CYSTECTOMY Right 07/2022 both tubes removed, right ovarian hemorrhagic corpus luteum, had adhesions per op report, PAST SURGICAL HISTORY OF EXTRACTION OF 2 TEETH PAST SURGICAL HISTORY OF EXCISION OF FACIAL CYST PT ED OBSTETRICS & GYNECOLOGY removal of fallopian tubes REMOVAL GALLBLADDER 04/2021 THYROIDECTOMY TOTAL/COMPLETE Bilateral 12/2018 UNLISTED LAPAROSCOPY PROCEDURE APPENDIX 01/2022 FAMILY HISTORY Problem Relation Age of Onset Diabetes Mother Hypertension Mother Arthritis Mother Liver Disease Father Diabetes Brother Diabetes Maternal Grandmother Heart Paternal Grandmother Heart Paternal Grandfather RI Diabetes Maternal Aunt X-5 Social History Tobacco Use Smoking status: Every Day Current packs/day: 1.00 Average packs/day: 1 pack/day for 13.0 years (13.0 ttl pk-yrs) Types: Cigarettes Smokeless tobacco: Never Vaping Use Vaping status: Never Used Substance Use Topics Alcohol use: No Drug use: No Current Outpatient Medications Medication Sig calcitriol (ROCALTROL) 0.5 mcg capsule Take 0.5 mcg by mouth once daily. 3-4 a day amitriptyline (ELAVIL) 25 mg tablet Take 25 mg by mouth daily at bedtime. dicyclomine HCl (BENTYL ORAL) Take 20 mg [...] A DAY March 13, 2019 3:48pm 03-13-2019 [facility] ([id number]) levothyroxine (LEVOXYL) 100 mcg tablet Take 1 tablet by mouth once daily. pantoprazole DR (PROTONIX) 40 mg tablet Take 1 tablet by mouth twice daily. (Patient not taking: Reported on 06/25/2021 ) sennosides (LAXATIVE ORAL) Take by mouth. (Patient not taking: Reported on 10/06/2022) ondansetron orally disintegrating (ZOFRAN ODT) 4 mg disintegrating tablet EVERY 8 HOURS NEEDED PRN For Nausea (Patient not taking: Reported on 07/19/2020) polyethylene glycol 3350 (MIRALAX) 17 gram/dose powder Mix in 2 quarts of water or desired liquid, start drinking after 5:00. (Patient not taking: Reported on 02/07/2019 ) terbinafine HCl (LAMISIL) 250 mg tablet Take 250 mg by mouth once daily. (Patient not taking: Reported on 07/19/2020 ) Lancets (FREESTYLE LANCETS) lancets Test blood sugar(s) as needed times daily. Dx: hypoglycemia. Insulin: No No current facility-administered medications for this visit. Allergies As of Date: 03/21/2024 Allergen Noted Reaction CODEINE 01/04/2005 GI Upset NAPROXEN 01/04/2005 PROZAC [FLUOXETINE HCL] 01/06/2016 Intolerance Fully Assessed 03/21/2024 REVIEW OF SYSTEMS Abdomen: abdominal pain and bloating persists Bladder: No dysuria, gross hematuria, urinary frequency, urinary urgency, or incontinence. Breast: No breast lumps, nipple d/c, overlying skin changes, redness or skin retraction. Expanded ROS: N/A Allergies and current medication updated:Yes SENSITIVE EXAM: The sensitive examination was discussed with the Patient or Patient's Authorized Office Support Specialist. As applicable, any other physician, advance practice provider, medical student, or other health professional student that will be observing or involved in the sensitive examination for educational or training purposes was discussed with the Patient or Authorized Office Support Specialist. The Patient or Authorized Office Support Specialist has agreed to proceed with the sensitive examination. (Sensitive examination includes inspection and/or palpation of the breasts, pelvis, prostate and anorectal regions). EXAM: BP 100/64 Wt 186 lb 9.6 oz (84.6kg) LMP 10/01/2013 GENERAL: pleasant, female in no apparent distress ABDOMEN: soft, no masses, guarding Present, and LLQ tender PELVIC: external genitalia normal, normal Bartholin's glands, urethra, Wyndham's glands, no vulvar lesions, no cervical lesions, good vaginal support, physiologic discharge present, normal appearing perineal body and perianal region, cervix surgically absent BIMANUAL: uterus normal size, shape and consistency, uterus surgically absent, and LLQ tender ASSESSMENT AND PLAN: Assessment & Plan Cyst of left ovary Complex left ovarian cyst Tumor markers and pelvic ultrasound ordered ftft > 30 m Av Carter MD documented in this encounter [facility] 06-29-2023 Miscellaneous Notes Patient notified. Orders signed by MANUEL and faxed to Mandeep Haro. Khushboo Hernandez RN Noted. Thanks. Order for repeat imaging in 6 months for me to sign and fax so she can have that done please. Lianne Bowman MD Callback imaging form Mandeep Haro copied from care everywhere below. MA MAMMOGRAM DIAGNOSTIC BILATERAL on 06-20-2023 MA MAMMOGRAM DIAGNOSTIC BILATERAL ORIGINAL FROM: MANDEEP HARO [address] [place], [place] [address] PROCEDURE FOR: ISABEL VILLEDA [address] [place] [address] Home: PID#: [id number] Exam#: [id number] : 1985 Age: 37 TO: AVIVA GEOVANNA BEAM BUILDER [employer] [address] [address] Fax: NO FAX EXAMINATION: BILATERAL DIGITAL DIAGNOSTIC MAMMOGRAM, 06/20/2023 8:18 am TECHNIQUE: Diagnostic mammography of the bilateral breasts was performed. Computer aided detection was utilized in the interpretation of this exam. Current study was also evaluated with a Computer Aided Detection (CAD) system. COMPARISON: 06/09/2023 and 12/05/2014 left breast HISTORY: ORDERING SYSTEM PROVIDED HISTORY: Reason for Exam: Abnormal Mammogram FINDINGS: BREAST DENSITY: Heterogeneously dense The left breast 7 mm group of punctate calcifications is again demonstrated, this is not changed in appearance. The right breast 9 mm group of punctate calcifications are reproduced and not significantly changed. No significant masses, calcifications, or other findings. 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 Right breast calcifications are unchanged, these are also probably benign. Recommend follow-up bilateral mammogram with magnification views in 6 months to document stability of the calcifications. Ultrasound will be performed the same day and reported separately for the right breast mass and asymmetries. BIRADS: MAMMOGRAM BI-RADS: 0: Needs addl evaluation RECALL: immediate RECALL TYPE: US LETTER SENT: Abnormal-Needs additional work up BI-RADS 0 Interpreted by: Burke Doyle MD Preliminary Report By: Burke Doyle MD Electronically signed By Burke Doyle MD Dictated Date: 06/20/2023 8:52:11 AM Prelim Date: 06/20/2023 9:03:11 AM Sign Date: 06/20/2023 9:03:11 AM Ordering Provider: AVIVA AUSTIN CLINICAL: BILATERAL CALCIFICATIONS. copy to: LIANNE BOWMAN MD, ph: [phone] [employer] Machine Operator: MADHAV MADISON RT (R) (M) (CT) letter sent: Abnormal-Needs additional work up BI-RADS 0 Mammogram BI-RADS: 0 Indeterminate US BREAST RIGHT LIMITED on 06-20-2023 US BREAST RIGHT LIMITED ORIGINAL FROM: MANDEEP [address] [address] PROCEDURE FOR: ISABELNHI VILLEDA [address] [place] [address] Home: PID#: [id number] Exam#: [id number] : 1985 Age: 37 TO: AVIVA AUSTIN BEAM BUILDER [facility] [address] [address] Fax: NO FAX EXAMINATION: ULTRASOUND OF THE right breast 06/20/2023 8:19 am TECHNIQUE: Color flow and real-time targeted ultrasound of the right breast were performed. COMPARISON: None. HISTORY: ORDERING SYSTEM PROVIDED HISTORY: Reason for Exam: Abnormal Mammogram FINDINGS: There are no visible masses or cysts to account for the mammographic findings. There is a 6 mm hypoechoic area in the right breast 12 o'clock 2 cm from the nipple which is likely a fat lobule, this is not felt to correspond to the mammographic abnormalities. IMPRESSION: No visible abnormalities to account for the mammographic findings, since this is most likely benign a follow-up right breast mammogram in 6 months is recommended to document stability, the bilateral microcalcifications can also be followed up at that time. BIRADS: MAMMOGRAM BI-RADS: 3: Probably benign RECALL: 6 month follow-up RECALL TYPE: mammo LETTER SENT: Probably Benign BI-RADS 3 Interpreted by: Burke Doyle MD Preliminary Report By: Burke Doyle MD Electronically signed By Burke Doyle MD Dictated Date: 06/20/2023 9:30:42 AM Prelim Date: 06/20/2023 9:35:22 AM Sign Date: 06/20/2023 9:35:22 AM Ordering Provider: AVIVA AUSTIN CLINICAL: MAMMOGRAPHIC DENSITY RIGHT BREAST ASYMMETRIC DENSITY RIGHT BREAST. copy to: LIANNE BOWMAN MD, ph: [phone] [employer] Operator: CANDY DE LA ROSA RT,RDMS,RVT,RDCS letter sent: Probably Benign BI-RADS 3 Ultrasound BI-RADS: 3 Probably benign Patient got her mammogram done at [facility]. She was wondering if the office had received the results yet. Please review and advise. Lisa Quintana June 29, 2023 12:05 PM documented in this encounter [facility] 06-20-2023 Note ORIGINAL FROM: [address] [address] PROCEDURE FOR: ISABEL VILLEAD [address] [place] [address] Home: PID#: [id number] Exam#: [id number] : 1985 Age: 37 TO: AVIVA AUSTIN BEAM BUILDER [employer] [address] [address] Fax: NO FAX EXAMINATION: ULTRASOUND OF THE right breast 06/20/2023 8:19 am TECHNIQUE: Color flow and real-time targeted ultrasound of the right breast were performed. COMPARISON: None. HISTORY: ORDERING SYSTEM PROVIDED HISTORY: Reason for Exam: Abnormal Mammogram FINDINGS: There are no visible masses or cysts to account for the mammographic findings. There is a 6 mm hypoechoic area in the right breast 12 o'clock 2 cm from the nipple which is likely a fat lobule, this is not felt to correspond to the mammographic abnormalities. IMPRESSION: No visible abnormalities to account for the mammographic findings, since this is most likely benign a follow-up right breast mammogram in 6 months is recommended to document stability, the bilateral microcalcifications can also be followed up at that time. BIRADS: MAMMOGRAM BI-RADS: 3: Probably benign RECALL: 6 month follow-up RECALL TYPE: mammo LETTER SENT: Probably Benign BI-RADS 3 Interpreted by: Burke Doyle MD Preliminary Report By: Burke Doyle MD Electronically signed By Burke Doyle MD Dictated Date: 06/20/2023 9:30:42 AM Prelim Date: 06/20/2023 9:35:22 AM Sign Date: 06/20/2023 9:35:22 AM Ordering Provider: AVIVA AUSTIN CLINICAL: MAMMOGRAPHIC DENSITY RIGHT BREAST ASYMMETRIC DENSITY RIGHT BREAST. copy to: LIANNE BOWMAN MD, ph: [phone] [employer] Operator: CANDY DE LA ROSA RT,RDMS,RVT,RDCS letter sent: Probably Benign BI-RADS 3 Ultrasound BI-RADS: 3 Probably benign [facility] 06-20-2023 Note ORIGINAL FROM: [address] [address] PROCEDURE FOR: ISABEL VILLEDA [address] [place] [address] Home: PID#: [id number] Exam#: [id number] : 1985 Age: 37 TO: AVIVA AUSTIN BEAM BUILDER [place] [id number] Fax: NO FAX EXAMINATION: BILATERAL DIGITAL DIAGNOSTIC MAMMOGRAM, 06/20/2023 8:18 am TECHNIQUE: Diagnostic mammography of the bilateral breasts was performed. Computer aided detection was utilized in the interpretation of this exam. Current study was also evaluated with a Computer Aided Detection (CAD) system. COMPARISON: 06/09/2023 and 12/05/2014 left breast HISTORY: ORDERING SYSTEM PROVIDED HISTORY: Reason for Exam: Abnormal Mammogram FINDINGS: BREAST DENSITY: Heterogeneously dense The left breast 7 mm group of punctate calcifications is again demonstrated, this is not changed in appearance. The right breast 9 mm group of punctate calcifications are reproduced and not significantly changed. No significant masses, calcifications, or other findings. 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 Right breast calcifications are unchanged, these are also probably benign. Recommend follow-up bilateral mammogram with magnification views in 6 months to document stability of the calcifications. Ultrasound will be performed the same day and reported separately for the right breast mass and asymmetries. BIRADS: MAMMOGRAM BI-RADS: 0: Needs addl evaluation RECALL: immediate RECALL TYPE: US LETTER SENT: Abnormal-Needs additional work up BI-RADS 0 Interpreted by: Burke Doyle MD Preliminary Report By: Burke Doyle MD Electronically signed By Burke Doyle MD Dictated Date: 06/20/2023 8:52:11 AM Prelim Date: 06/20/2023 9:03:11 AM Sign Date: 06/20/2023 9:03:11 AM Ordering Provider: AVIVA AUSTIN CLINICAL: BILATERAL CALCIFICATIONS. copy to: LIANNE BOWMAN MD, ph: [phone] [employer] Operator: MADHAV MADISON RT (R) (M) (CT) letter sent: Abnormal-Needs additional work up BI-RADS 0 Mammogram BI-RADS: 0 Indeterminate [facility] 05-18-2023 Note ORIGINAL EXAMINATION: LIMITED ABDOMINAL ULTRASOUND05/18/2023 [...] Date: 05/18/2023 4:42:24 PM Ordering Provider: AVIVA AUSTIN [facility] 05-05-2023 Hospital Discharge instructions Patient Education 05/04/2023 22:15:57 CHEST WALL [...] care provider or pharmacist before using an quyn-tgf-itxqmub cough medicine. You may use acetaminophen or [...] as directed by your health care provider [phone] [employer]. [address] [place] [address], [place] [address]. All rights reserved. This information is not intended as a substitute for professional medical care. Always follow your healthcare professional's instructions. Follow Up Care 05/04/2023 20:46:35 With:AVIVA AUSTIN BEAM BUILDER - [employer] Address: [address] [place] [address] Physicians [place], [place] [id number]- When:2-4 days [facility] Myranda 05-04-2023 Note Discharge Instructions Thank you for allowing Mandeep to assist you with your healthcare needs. The following is important discharge information regarding your hospital visit. Diagnosis from Today's Visit Chest pain What to Do Next Instructions from Your Care Team No qualifying data available. Post Acute Orders No qualifying data available. You Need to Schedule the Following Appointments Follow Up with AVIVA AUSTIN APRN, CNP When Within 2-4 days Where: [address] [facility] [place], [place] [id number]- Allergies Naprosyn PROzac codeine Medications Please ask [...] care provider or pharmacist before using an hspx-rsa-acabwaa cough medicine. You may use acetaminophen or [...] as directed by your health care provider [phone] [employer]. [address] [place] [address], [place] [address]. All rights reserved. This information is not intended as a substitute for professional medical care. Always follow your healthcare professional's instructions. Additional Information VACCINATE! IT SAVES LIVES! Members of the community who have not yet received the COVID-19 vaccine and would like to receive it can visit one of [facility] vaccine clinics. There are many vaccine clinic locations within the [facility]. For locations and available times, please visit [email or web address] It is important to note that some COVID mobile vaccine clinics are held outdoors and may be canceled in rainy or stormy conditions. To learn more about pediatric vaccinations (ages 5-11), we invite you to visit the [facility] webpage. [email or web address]/[email or web address]-Frequently-[email or web address] -Questions.html To learn more about the COVID-19 vaccine, we invite you to visit the CDC website for a list of frequently asked questions. https://www.cdc.gov/coronavirus/2019-n cov/vaccines/faq.html [facility] Patient Portal Access Instructions: Stay connected with your healthcare team and access your personal medical information anytime with the [facility] Patient Portal. If you would like a full copy of your medical records please contact the [facility] Medical Records Department Tuesday through Tuesday between 8a.m. and 4:30p.m. Please follow the directions below to access the portal: 1.Access the email account you provided upon registration to the [facility].2.Look for an invitation email from [facility].3.Open the email and access the invitation link: Accept Invitation to [facility]4.Fill in the required vila to create your account. Sign into [email or web address] with your username and password that you [...] you will allow to register on the [facility] Patient Portal for access to your information. You can also access the [facility] Patient Portal on the AngioSlide. Simply click on Health Records under Health Data and then click on the [employer] logo. HOW TO SAFELY DISPOSE OF PRESCRIPTION [...] Call your local pharmacy or go to [email or web address] to find one close to you.3.Make use of household items: Use cat litter or old coffee grounds to dispose medications if other options are not available. Mix your drugs with these household products, seal them in an airtight container and throw it into the garbage. Call [facility]: [phone] to be sure your drugs can be [...] been reviewed and explained to me and I,ISABEL VILLEDA understand my current condition and have read and understand these discharge instructions. I have received a written copy of the plan/instructions. If I have questions, I am aware that I should contact my doctor. Patient/Office Support Specialist Signature: _ Date/Time: Relationship to Patient: Witness Name/Signature: Date/Time: [facility] 05-04-2023 Note ORIGINAL EXAMINATION: TWO XRAY [...] 05/05/2023 12:16:43 AM Ordering Provider: SANDRA HAN [facility] 05-04-2023 Note Sinus rhythm Baseline wander in lead(s) II,III,aVR,aVF,V3,V6 Electronic Signature: SANDRA HAN MD 05/04/2023 21:39:08 [facility] 02-07-2023 History of Present illness Narrative Isabel Villeda is a 37 year old female who presents for problem visit for f/u ovarian cyst. HPI: 37-year-old female who had vaginal hysterectomy approximately 9 years ago presents today for follow-up ovarian cyst. Patient notes she had some pelvic pain and had a laparoscopy on 08/05/2022 at [facility] for bilateral salpingectomy and removal of a [...] L2 SAB0 IAB0 Ectopic0 Multiple0 Live Births2 Shift Supervisor Rn History LMP: 10/01/2013, Hysterectomy Age at Menarche: Age at First : Age at Menopause: Shift Supervisor Rn History Comments: Sexual Activity: Not Currently; Male; [...] Grandmother Heart Paternal Grandmother Heart Paternal Grandfather RI Diabetes Maternal Aunt X-5 Social History Tobacco [...] A DAY March 13, 2019 3:48pm 03-13-2019 [facility] ([id number]) cholecalciferol, Vitamin D3, (VITAMIN D3) 1,250 mcg [...] Lianne Bowman MD documented in this encounter [facility] 10-11-2022 Miscellaneous Notes Left message on answering machine, patient had told me that this was OK. Results of ultrasound of neck revealed no abnormalities. documented in this encounter [facility] 10-06-2022 History of Present illness Narrative Isabel Love Ronal 1985 REFERRING PHYSICIAN: No ref. provider found [...] A DAY March 13, 2019 3:48pm 03-13-2019 [facility] ([id number]) levothyroxine (LEVOXYL) 100 mcg tablet Take 1 [...] Grandmother Heart Paternal Grandmother Heart Paternal Grandfather RI Diabetes Maternal Aunt X-5 REVIEW OF SYMPTOMS: [...] C (98.5 F), height 177.8 cm (5' 10), weight 73.9 kg (163 lb), last menstrual [...] I have offered referral to ENT in [place], but patient states that she will seek out ENT at [place]. I will also order neck US for [...] Susan Collier MD documented in this encounter [facility] 02-03-2022 History of Present illness Narrative Images from the original note were not included. Subjective HPI Isabel Villeda is a 36 year old female [...] A DAY March 13, 2019 3:48pm 03-13-2019 [facility] ([id number]) levothyroxine (LEVOXYL) 100 mcg tablet Take 1 [...] Grandmother Heart Paternal Grandmother Heart Paternal Grandfather RI Diabetes Maternal Aunt X-5 Social History Tobacco [...] Mally Morrison APRN.CNP documented in this encounter [facility] 02-03-2022 Instructions Mally Morrison APRN.CNP - [...] drainage or pus). documented in this encounter [facility] 10-29-2021 Hospital Discharge instructions Patient Education 10/29/2021 12:24:45 Abdominal Pain, [...] or water and you are getting dehydrated [id number] [employer]. [address] [place] [address]. All rights reserved. This information is not intended as a substitute for professional medical care. Always follow your healthcare professional's instructions. Follow Up Care 10/29/2021 09:27:59 With:KOKO KENT MD Address: [address] [place] [address] [place] [address]- [phone] When:2-4 days [facility] 10-29-2021 Note Discharge Instructions Thank you for allowing [facility] to assist you with your healthcare needs. The following is important discharge information regarding your hospital visit. Diagnosis from Today's Visit Abdominal pain What to Do Next Instructions from Your Care Team No qualifying data available. Post Acute Orders No qualifying data available. You Need to Schedule the Following Appointments Follow Up with KOKO KENT MD When Within 2-4 days Where: [address] [place] [address]- [phone] Allergies Naprosyn PROzac codeine Medications Please ask [...] or water and you are getting dehydrated [phone] [employer] [facility]. [address] [place] [address], [place] [address]. All rights reserved. This information is not intended as a substitute for professional medical care. Always follow your healthcare professional's instructions. Additional Information VACCINATE! IT SAVES LIVES! Members of the community who have not yet received the COVID-19 vaccine and would like to receive it can visit one of [facility] vaccine clinics. There are many vaccine clinic locations within the [facility]. For locations and available times, please visit [email or web address]. It is important to note that some COVID mobile vaccine clinics are held outdoors and may be canceled in rainy or stormy conditions. To learn more about pediatric vaccinations (ages 5-11), we invite you to visit the [employer] webpage. [email or web address]-[email or web address]-Zpqpwbcilcx-Frequently-[email or web address] -Questions.html To learn more about the COVID-19 vaccine, we invite you to visit the [facility] website for a list of frequently asked questions. [email or web address] d-[email or web address]/[email or web address]-Rkejfqvloz_Lm ked-Questions.pdf [facility] Patient Portal Access Instructions: Stay connected with your healthcare team and access your personal medical information anytime with the [facility] Patient Portal. If you would like a full copy of your medical records please contact the [facility] Medical Records Department Tuesday through Tuesday between 8a.m. and 4:30p.m. Please follow the directions below to access the portal: 1.Access the email account you provided upon registration to the [facility].2.Look for an invitation email from [facility].3.Open the email and access the invitation link: Accept Invitation to [facility]4.Fill in the required vila to create your account. Sign into [email or web address] with your username and password that you [...] you will allow to register on the [facility] Patient Portal for access to your information. You can also access the [facility] Patient Portal on the AngioSlide. Simply click on Health Records under Health Data and then click on the [facility] logo. HOW TO SAFELY DISPOSE OF PRESCRIPTION [...] Call your local pharmacy or go to [email or web address] to find one close to you.3.Make use of household items: Use cat litter or old coffee grounds to dispose medications if other options are not available. Mix your drugs with these household products, seal them in an airtight container and throw it into the garbage. Call [facility]: [phone] to be sure your drugs can be [...] been reviewed and explained to me and I,ISABEL VILLEDA understand my current condition and have read and understand these discharge instructions. I have received a written copy of the plan/instructions. If I have questions, I am aware that I should contact my doctor. 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/Office Support Specialist Signature: _ Date/Time: Relationship to Patient: Witness Name/Signature: Date/Time: [facility] 01-16-2013 History of Past i llness Narrative Problem Noted Date Resolved Date First trimester [...] of this encounter (statuses as of 02/03/2022) [facility]10-[facility] History of Past illness Narrative* Problem [...] of this encounter (statuses as of 10/09/2022) [facility]10-[facility]2013 History of Past illness Narrative* Problem [...] of this encounter (statuses as of 10/12/2022) [facility]10[facility] History of Past illness Narrative* Problem [...] of this encounter (statuses as of 02/08/2023) [facility] History of Past illness Narrative* Problem [...] as of this encounter (statuses as of 06/29/2023) [facility] No data available for this section [facility] Evaluation + Plan note Future Appointments Appointment Date:03/04/2023 09:00:00 AM Scheduled Provider:AVIVA AUSTIN APRN, CNP Location:[facility] Appointment Type:PC OV Follow Up Diagnostic Tests Pending * .KATHI by IFA Screen 02/18/23 * Copper Level 02/18/23 * Rheumatoid Factor 02/18/23 Future Scheduled Tests Radiology* CT Abdomen and Pelvis w/o contrast 02/17/23 [facility] Evaluation + Plan note Future Appointments Appointment Date:05/10/2023 09:40:00 AM Scheduled Provider:GEE RIDDLE Location:UROLOGY Appointment Type:URO SAMPLE CARRIER Appointment Date:05/20/2023 09:00:00 AM Scheduled Provider: Location:[facility] Appointment Type:OSM OV Follow Up Appointment Date:06/03/2023 08:00:00 AM Scheduled Provider:AVIVA AUSTIN APRN, CNP Location:[facility] Appointment Type:PC OV Follow Up Future Scheduled Tests Laboratory* Folate Level 06/04/23 * Thyroid Stimulating Hormone 06/04/23 * Free T4 06/04/23 * Complete Blood Count 06/04/23 * Lipid Profile 06/04/23 * Vitamin D Level 06/04/23 * Complete Metabolic Panel 06/04/23 Radiology* CT Abdomen and Pelvis w/o contrast 03/07/23 [facility] Evaluation + Plan note Future Appointments Appointment Date:05/20/2023 09:00:00 AM Scheduled Provider: Location:[facility] Appointment Type:OSM OV Follow Up Appointment Date:06/02/2023 09:00:00 AM Scheduled Provider: Location:[facility] Appointment Type:MA Mammogram Screening Bilateral w/ Delonte Appointment Date:06/03/2023 08:00:00 AM Scheduled Provider:AVIVA AUSTIN APRN, CNP Location:[facility] Appointment Type:PC OV Follow Up Future [...] CT Abdomen and Pelvis w/o contrast 03/07/23 [facility] Evaluation + Plan note Future Appointments Appointment Date:12/02/2023 08:00:00 AM Scheduled Provider:AVIVA AUSTIN APRN, CNP Location:[facility] Appointment Type:PC OV Follow Up Future Scheduled Tests Laboratory* Folate Level 06/04/23 * Thyroid Stimulating Hormone 12/02/23 * Thyroid Stimulating Hormone 06/04/23 * Free T4 12/02/23 * Free T4 06/04/23 * Complete Blood Count 06/04/23 * Lipid Profile 06/04/23 * Vitamin D Level 12/02/23 * Vitamin D Level 06/04/23 * Complete Metabolic Panel 06/04/23 Radiology* MA Mammo Diagnostic Left w/ Delonte 05/12/23 * XR Chest 2 Views (PA & Lateral) 05/10/23 * CT Abdomen and Pelvis w/o contrast 03/07/23 [facility] Evaluation + Plan note Future Appointments Appointment Date:05/24/2024 08:00:00 AM Scheduled Provider: Location:[facility] Appointment Type:PC Nurse Lab Appointment Date:06/01/2024 08:00:00 AM Scheduled Provider:AVIVA AUSTIN APRN, CNP Location:[facility] Appointment Type:PC OV Appointment Date:06/14/2024 01:30:00 PM Scheduled Provider: Location:[facility] Appointment Type:PM EMG/NCV 2 Extremity Future Scheduled Tests Laboratory* Thyroid Stimulating Hormone 12/02/23 * Thyroid Stimulating Hormone 06/04/23 * Free T4 12/02/23 * Free T4 06/04/23 * Complete Blood Count 06/04/23 * Lipid Profile 06/04/23 * Vitamin D Level 12/02/23 * Vitamin D Level 06/04/23 * Complete Metabolic Panel 06/04/23 * Complete Metabolic Panel 04/12/24 Radiology* US Abdomen Limited 05/03/24 * XR Upper GI 05/03/24 * MRI Spine Cervical w/o Contrast 11/03/23 * MRI Spine Thoracic w/o Contrast 11/03/23 [facility] Evaluation note* Diagnosis Onset Date Resolution Status Chronic constipation chronic History of cholecystectomy r esolved History of cholecystectomy r esolved History of cholecystectomy r esolved Abdominal pain acute Diarrhea acute History of cholecystectomy r esolved Post-surgical hypoparathyroidism acute Hypothyroidism chronic Abdominal pain acute Bloating acute Diverticulosis acute Tenesmus (rectal) acute Unintentional weight loss ac [place] Chest pain acute Intermittent palpitations ac [place] Ureteral calculus, right acu te Urinary tract infection acut e [facility] Work Phone: Evaluation note* Diagnosis Onset Date Resolution Status Chronic constipation chronic History of cholecystectomy r esolved History of cholecystectomy r esolved History of cholecystectomy r esolved Abdominal pain acute Diarrhea acute History of cholecystectomy r esolved Post-surgical hypoparathyroidism acute Hypothyroidism chronic Abdominal pain acute Bloating acute Diverticulosis acute Tenesmus (rectal) acute Unintentional weight loss ac [place] Chest pain acute Intermittent palpitations ac [place] Ureteral calculus, right acu te Urinary tract infection acut e Abscess of left axilla acute Hidradenitis suppurativa acu te Abscess of left axilla acute Abscess of left axilla acute [facility] Work Phone: Evaluation note* Diagnosis Onset Date Resolution Status Post-surgical hypoparathyroidism acute Hypothyroidism chronic Abdominal pain acute Bloating acute Diverticulosis acute Tenesmus (rectal) acute Unintentional weight loss [place] Chest pain acute Intermittent palpitations [place] Ureteral calculus, right acu te Urinary tract infection acut e Abscess of left axilla acute Hidradenitis suppurativa acu te Abscess of left axilla acute Abscess of left axilla acute [facility] Work Phone: Evaluation note* Diagnosis Onset Date Resolution Status Abdominal pain acute Bloating acute Diverticulosis acute Tenesmus (rectal) acute Unintentional weight loss [place] Chest pain acute Intermittent palpitations [place] Ureteral calculus, right acu te Urinary tract infection acut e Abscess of left axilla acute Hidradenitis suppurativa acu te Abscess of left axilla acute Abscess of left axilla acute [facility] Work Phone: Evaluation note* Diagnosis Onset Date Resolution Status Ureteral calculus, right acu te Urinary tract infection acut e Abscess of left axilla acute Hidradenitis suppurativa acu te Abscess of left axilla acute Abscess of left axilla acute Abdominal pain acute [facility] Work Phone: Evaluation note* Diagnosis Onset Date Resolution Status Abscess of left axilla acute Hidradenitis suppurativa acu te Abscess of left axilla acute Abscess of left axilla acute Abdominal pain acute [facility] Work Phone: Evaluation note* Diagnosis Onset Date Resolution Status Abdominal pain acute Suprapubic discomfort acute Urinary frequency acute [facility] Work Phone: Evaluation note* Diagnosis Onset Date Resolution Status Abdominal pain acute Suprapubic discomfort acute Urinary frequency acute Right renal stone acute [facility] Work Phone: Evaluation note* Diagnosis Onset Date Resolution Status Abdominal pain acute Suprapubic discomfort acute Urinary frequency acute Right renal stone acute Abdominal pain acute Abnormal tumor markers acute Fatty liver acute Hepatomegaly acute [facility] Work Phone: Evaluation note* Diagnosis Onset Date Resolution Status Abdominal pain acute Suprapubic discomfort acute Urinary frequency acute Right renal stone acute Abdominal pain acute Abnormal tumor markers acute Fatty liver acute Hepatomegaly acute Right lower quadrant pain ac [place] Nausea and vomiting noneacti ve Appendicolith acute Right lower quadrant pain ac [place] [facility] Work Phone: Evaluation note* Diagnosis Rash- Primary Rash and other nonspecific skin eruption [facility] Diagnosis Onset Date Resolution Status Abnormal tumor markers acute Hepatomegaly acute Right lower quadrant pain ac [place] Abdominal pain chronic Suprapubic discomfort acute Urinary frequency acute Right renal stone acute Abnormal tumor markers acute Fatty liver acute Hepatomegaly acute Abdominal pain chronic Right lower quadrant pain ac [place] Nausea and vomiting noneacti ve Appendicolith acute Right lower quadrant pain ac [place] Acute exacerbation of chronic low back pain noneactive Acute appendicitis acute [facility] Work Phone: Evaluation note* Diagnosis Onset Date Resolution Status Abnormal tumor markers acute Hepatomegaly acute Right lower quadrant pain ac [place] Abdominal pain chronic Suprapubic discomfort acute Urinary frequency acute Right renal stone acute Abnormal tumor markers acute Fatty liver acute Hepatomegaly acute Abdominal pain chronic Right lower quadrant pain ac [place] Nausea and vomiting noneacti ve Right lower quadrant pain [place] Acute exacerbation of chronic low back pain noneactive Acute appendicitis acute [facility] Work Phone: Evaluation note* Diagnosis Onset Date Resolution Status Suprapubic discomfort acute Urinary frequency acute Right renal stone acute Abnormal tumor markers acute Fatty liver acute Hepatomegaly acute Abdominal pain chronic Right lower quadrant pain ac [place] Nausea and vomiting noneacti ve Right lower quadrant pain [place] Acute exacerbation of chronic low back pain noneactive Acute appendicitis resolved Duodenal mass acute Epigastric pain acute Gastric intestinal metaplasia acute Unintentional weight loss [place] S/P appendectomy acute Right groin pain acute Right ovarian cyst acute S/P appendectomy acute [facility] Work Phone: Evaluation note* Diagnosis Onset Date Resolution Status Suprapubic discomfort acute Urinary frequency acute Right renal stone acute Abnormal tumor markers acute Fatty liver acute Hepatomegaly acute Abdominal pain chronic Right lower quadrant pain ac [place] Nausea and vomiting noneacti ve Right lower quadrant pain ac [place] Acute exacerbation of chronic low back pain noneactive Acute appendicitis resolved Duodenal mass acute Epigastric pain acute Gastric intestinal metaplasia acute Unintentional weight loss [place] S/P appendectomy acute Right groin pain acute Right ovarian cyst acute S/P appendectomy acute S/P appendectomy acute [facility] Work Phone: Evaluation note* Diagnosis Onset Date Resolution Status Right lower quadrant pain ac [place] Nausea and vomiting noneacti ve Right lower quadrant pain ac [place] Acute exacerbation of chronic low back pain noneactive Acute appendicitis resolved Duodenal mass acute Epigastric pain acute Gastric intestinal metaplasia acute Unintentional weight loss ac [place] S/P appendectomy acute Right groin pain acute Right ovarian cyst acute S/P appendectomy acute S/P appendectomy acute [facility] Work Phone: Evaluation note* Diagnosis Onset Date Resolution Status Right lower quadrant pain ac [place] Nausea and vomiting noneacti ve Right lower quadrant pain ac [place] Acute exacerbation of chronic low back pain noneactive Acute appendicitis resolved Duodenal mass acute Epigastric pain acute Gastric intestinal metaplasia acute Unintentional weight loss ac [place] S/P appendectomy acute Right groin pain acute Right ovarian cyst acute S/P appendectomy acute S/P appendectomy acute Chest pain acute Acute maxillary sinusitis no neactive [facility] Work Phone: Evaluation note* Diagnosis Globus sensation- Primary Gastrointestinal malfunction arising from mental factors [facility] Diagnosis Ovarian cyst, left- Primary Other and unspecified ovarian cyst Encounter for screening mammogram for malignant neoplasm of breast Other screening mammogram [facility]* Diagnosis Cyst of left ovary- Primary Other and unspecified ovarian cyst [facility]* Diagnosis Cyst of left ovary- Primary Other and unspecified ovarian cyst Hydrosalpinx Chronic salpingitis and oophoritis [facility]* Diagnosis Chronic pelvic pain in female- Primary Unspecified symptom associated with female genital organs [facility]* Diagnosis Rib pain- Primary Chest pain, unspecified [facility]* Diagnosis Impaired dexterity- Primary Xie reflex positive Lhermitte sign positive Cervical disc herniation Displacement of cervical intervertebral disc without myelopathy Cervical radiculopathy Brachial neuritis or radiculitis nos Foraminal stenosis of cervical region Spinal stenosis in cervical region [facility] Discharge instructions Additional Instructions Implant Used?: [facility] Work Phone: Hospital Discharge instructions Additional Instructions Labs are stable CT scan noting ovarian cyst. Follow-up with Dr. Rene.[facility] Work Phone: Hospital Discharge instructions No data available for this section [facility] Progress note No data available for this section [facility] Reason for referral (narrative)* Diagnostic Procedure Only (Routine) - Authorized Specialty Diagnoses / Procedures Referred By Contac t Referred To Contact US IMAGING Diagnoses Globus sensation Procedures US THYROID/PARATHYROID US SOFT TISSUE HEAD & NECK REAL TIME IMGE Susan Mcgarry MD [id number] [place] [address] Us Imaging Referral ID Status Reason Start Date Expiration Date Visits Requested Visits Authorized [id number] Authorized Auto-Generat ed Referral 10/06/2022 11/05/2023 1 1 [facility] Diagnostic Procedure Only (Routine) - Authorized Specialty Diagnoses / Procedures [facility] To [facility] Diagnoses Encounter for screening mammogram for malignant neoplasm of breast Procedures MARIYA SCREENING W DELONTE SCREENING DIGITAL BREAST TOMOSYNTHESIS BI SCREENING MAMMOGRAPHY BI 2-VIEW BREAST INC CAD Lianne Bowman MD [address] [place] [address] [facility] [address] [place] [address] Referral ID Status Reason Start Date Expiration Date Visits Requested Visits Authorized [id number] Authorized Auto-Generat ed Referral 3 03/08/2024 1 1 * Diagnostic Procedure Only (Routine) - Authorized Specialty Diagnoses / Procedures Referred By Contac t Referred To Contact [facility] Diagnoses Ovarian cyst, left Procedures PELVIC US WHI US PELVIC NONOBSTETRIC REAL-TIME IMAGE COMPLETE Lianne Bowman MD [address] [place] [address] [address] Referral ID Status Reason Start Date Expiration Date Visits Requested Visits Authorized [id number] Authorized Auto-Generat ed Referral 3 02/07/2024 1 1 [facility] for referral (narrative)* Diagnostic Procedure Only (Routine) - Authorized Specialty Diagnoses / Procedures Referred By Contac t Referred To Contact [facility] Diagnoses Cyst of left ovary Procedures PELVIC US I US PELVIC NONOBSTETRIC REAL-TIME IMAGE COMPLETE Av Carter MD [address] [place] [address] [address] Referral ID Status Reason Start Date Expiration Date Visits Requested Visits Authorized [id number] Authorized Auto-Generat ed Referral 03/21/2025 1 1 [facility] for visit Narrative* Diagnostic Procedure Only (Routine) - Closed Specialty Diagnoses / Procedures Referred By Contac t Referred To Contact [facility] Diagnoses Cyst of left ovary Procedures PELVIC US I US PELVIC NONOBSTETRIC REAL-TIME IMAGE COMPLETE Av Carter MD [address] [place] [address] [address] Referral ID Status Reason Start Date Expiration Date V isits Requested Visits Authorized [id number] Closed Auto-Generate d Referral 03/21/2024 03/21/2025 1 1 [facility] Summary Purpose Family History No Family History Records Found Relationship Condition Age at Onset Recorded Date/T abril father Alcoholism Unknown mother Anemia Unknown Depression Unknown Hypertension Unknown Hyperlipidemia Unknown Diabetes mellitus Unknown grandfather Diabetes mellitus Unknown Myocardial infarction Unknown grandmother Malignant neoplasm of breast Unknown Advance Directives No Advanced Directives Records Found Advance Directive Response Recorded Date/ Time Living Will No July 01, 2021 8:52am Power of Underpresser Hand No July 01 8:52am Advance Directive Response Recorded Date/ Time Living Will No October 01, 2021 11:42am Power of Underpresser Hand No October 01 11:42am Advance Directive Response Recorded Date/ Time Living Will No October 13, 2021 7 :53pm Power of Underpresser Hand No October 13, 2021 7:53pm Advance Directive Response Recorded Date/ Time Living Will No December 09 6:56pm Power of Underpresser Hand No December 09 022 6:56pm Advance Directive Response Recorded Date/ Time Living Will No January 07, 2022 10:38am Power of Underpresser Hand No December 10:38am Advance Directive Response Recorded Date/ Time Living Will No February 06 9:46am Power of Underpresser Hand No February 06, 2022 9:46am Advance Directive Response Recorded Date/ Time Living Will No February 06 1:06pm Power of Underpresser Hand No February 06, 2022 1:06pm Advance Directive Response Recorded Date/ Time Living Will No February 06 12:06pm Power of Underpresser Hand No February 06, 2022 12:06pm Advance Directive Response Recorded Date/ Time Living Will No April 17 11:48am Power of Underpresser Hand No April 17 11:48am Advance Directive Response Recorded Date/ Time Living Will No April 28 2:39pm Power of Underpresser Hand No April 28, 2022 2:39pm Chief Complaint and Reason for Visit Chief Complaint PHONE-COVID+ COUGH I S FLARING UP BACK PAIN chest pain phone-[employer]SAL [employer], COVID + 03/17 Gallbladder issues GALLBLADDER ER F/U ABDOMINAL PAIN, POSSIBLE GALLBLADDER RUQ N/V recheck abd RIB PAIN TWO WK POST OP GALLBLADDER 04/29 F/U GALLBLADDER 04/29 Abdominal cramping 6 M FU/THYROID- RS FROM NS 09/16 DIVERTICULITIS? E ORDER heart palps, low hr PALPITATIONS RIGHT FLANK PAIN AND RIGHT ABD PAIN URETERAL STONE KUB Reason for Visit Chronic constipation History of cholecystectomy History of cholecystectomy History of cholecystectomy Abdominal pain Diarrhea History of cholecystectomy Post-surgical hypoparathyroidism Hypothyroidism Abdominal pain Bloating Diverticulosis Tenesmus (rectal) Unintentional weight loss Chest pain Intermittent palpitations Ureteral calculus, right Urinary tract infection Chief Complaint phone-NASAL CONGESTI ON, COVID + 12/7 Gallbladder issues GALLBLADDER ER F/U ABDOMINAL PAIN, POSSIBLE GALLBLADDER RUQ N/V recheck abd RIB PAIN TWO WK POST OP GALLBLADDER 04/29 F/U GALLBLADDER 04/29 Abdominal cramping 6 M FU/THYROID- RS FROM NS 6/8 DIVERTICULITIS? E ORDER heart palps, low hr PALPITATIONS RIGHT FLANK PAIN AND RIGHT ABD PAIN URETERAL STONE KUB BOIL UNDER ARMPIT Cutaneous abscess of left axilla Cutaneous abscess of left axilla Reason for Visit Chronic constipation History of cholecystectomy History of cholecystectomy History of cholecystectomy Abdominal pain Diarrhea History of cholecystectomy Post-surgical hypoparathyroidism Hypothyroidism Abdominal pain Bloating Diverticulosis Tenesmus (rectal) Unintentional weight loss Chest pain Intermittent palpitations Ureteral calculus, right Urinary tract infection Abscess of left axilla Hidradenitis suppurativa Abscess of left axilla Abscess of left axilla Chief Complaint phone-NASAL CONGESTI ON, COVID + 12/7 Gallbladder issues GALLBLADDER ER F/U ABDOMINAL PAIN, POSSIBLE GALLBLADDER RUQ N/V recheck abd RIB PAIN TWO WK POST OP GALLBLADDER 04/29 F/U GALLBLADDER 04/29 Abdominal cramping 6 M FU/THYROID- RS FROM NS 6/8 DIVERTICULITIS? E ORDER heart palps, low hr PALPITATIONS RIGHT FLANK PAIN AND RIGHT ABD PAIN URETERAL STONE KUB BOIL UNDER ARMPIT Cutaneous abscess of left axilla Cutaneous abscess of left axilla HYPERCALCIURIA Reason for Visit Chronic constipation History of cholecystectomy History of cholecystectomy History of cholecystectomy Abdominal pain Diarrhea History of cholecystectomy Post-surgical hypoparathyroidism Hypothyroidism Abdominal pain Bloating Diverticulosis Tenesmus (rectal) Unintentional weight loss Chest pain Intermittent palpitations Ureteral calculus, right Urinary tract infection Abscess of left axilla Hidradenitis suppurativa Abscess of left axilla Abscess of left axilla Chief Complaint 6 M FU/THYROID- RS F ROM NS 6/8 DIVERTICULITIS? E ORDER heart palps, low hr PALPITATIONS RIGHT FLANK PAIN AND RIGHT ABD PAIN URETERAL STONE KUB BOIL UNDER ARMPIT Cutaneous abscess of left axilla Cutaneous abscess of left axilla HYPERCALCIURIA Reason for Visit Post-surgical hypopa rathyroidism Hypothyroidism Abdominal pain Bloating Diverticulosis Tenesmus (rectal) Unintentional weight loss Chest pain Intermittent palpitations Ureteral calculus, right Urinary tract infection Abscess of left axilla Hidradenitis suppurativa Abscess of left axilla Abscess of left axilla Chief Complaint DIVERTICULITIS? E ORDER heart palps, low hr PALPITATIONS RIGHT FLANK PAIN AND RIGHT ABD PAIN URETERAL STONE KUB BOIL UNDER ARMPIT Cutaneous abscess of left axilla Cutaneous abscess of left axilla HYPERCALCIURIA ABDOMINAL PAIN Reason for Visit Abdominal pain Bloating Diverticulosis Tenesmus (rectal) Unintentional weight loss Chest pain Intermittent palpitations Ureteral calculus, right Urinary tract infection Abscess of left axilla Hidradenitis suppurativa Abscess of left axilla Abscess of left axilla Chief Complaint RIGHT FLANK PAIN AND RIGHT ABD PAIN URETERAL STONE KUB BOIL UNDER ARMPIT Cutaneous abscess of left axilla Cutaneous abscess of left axilla HYPERCALCIURIA ABDOMINAL PAIN E ORDER 2 WK FU EORDERS/PICKING UP KITS E ORDERS Reason for Visit Ureteral calculus, r ight Urinary tract infection Abscess of left axilla Hidradenitis suppurativa Abscess of left axilla Abscess of left axilla Abdominal pain Chief Complaint KUB BOIL UNDER ARMPIT Cutaneous abscess of left axilla Cutaneous abscess of left axilla HYPERCALCIURIA ABDOMINAL PAIN E ORDER 2 WK FU EORDERS/PICKING UP KITS E ORDERS ABD E ORDER Reason for Visit Abscess of left axil la Hidradenitis suppurativa Abscess of left axilla Abscess of left axilla Abdominal pain Chief Complaint BOIL UNDER ARMPIT Cutaneous abscess of left axilla Cutaneous abscess of left axilla HYPERCALCIURIA ABDOMINAL PAIN E ORDER 2 WK FU EORDERS/PICKING UP KITS E ORDERS ABD E ORDER ABD PAIN, DIARRHEA Reason for Visit Abscess of left axil la Hidradenitis suppurativa Abscess of left axilla Abscess of left axilla Abdominal pain Chief Complaint HYPERCALCIURIA ABDOMINAL PAIN E ORDER 2 WK FU EORDERS/PICKING UP KITS E ORDERS ABD E ORDER ABD PAIN, DIARRHEA POSSIBLE UTI RIGHT FLANK AND GROIN PAIN Reason for Visit Abdominal pain Suprapubic discomfort Urinary frequency Chief Complaint ABDOMINAL PAIN E ORDER 2 WK FU EORDERS/PICKING UP KITS E ORDERS ABD E ORDER ABD PAIN, DIARRHEA POSSIBLE UTI RIGHT FLANK AND GROIN PAIN FLANK PAIN RT ESWL Reason for Visit Abdominal pain Suprapubic discomfort Urinary frequency Right renal stone Chief Complaint ABDOMINAL PAIN E ORDER 2 WK FU EORDERS/PICKING UP KITS E ORDERS ABD E ORDER ABD PAIN, DIARRHEA POSSIBLE UTI RIGHT FLANK AND GROIN PAIN FLANK PAIN RT ESWL 2 MO FU INT LABS MASTODYNIA Reason for Visit Abdominal pain Suprapubic discomfort Urinary frequency Right renal stone Abdominal pain Abnormal tumor markers Fatty liver Hepatomegaly Chief Complaint ABDOMINAL PAIN E ORDER 2 WK FU EORDERS/PICKING UP KITS E ORDERS ABD E ORDER ABD PAIN, DIARRHEA POSSIBLE UTI RIGHT FLANK AND GROIN PAIN FLANK PAIN RT ESWL RT ESWL 2 MO FU INT LABS MASTODYNIA KUB FATTY LIVER Reason for Visit Abdominal pain Suprapubic discomfort Urinary frequency Right renal stone Abdominal pain Abnormal tumor markers Fatty liver Hepatomegaly Chief Complaint ABDOMINAL PAIN E ORDER 2 WK FU EORDERS/PICKING UP KITS E ORDERS ABD E ORDER ABD PAIN, DIARRHEA POSSIBLE UTI RIGHT FLANK AND GROIN PAIN FLANK PAIN RT ESWL RT ESWL 2 MO FU INT LABS MASTODYNIA KUB FATTY LIVER flank pain [facility] ER FU/NOT ANY BETTER Appendicolith Reason for Visit Abdominal pain Suprapubic discomfort Urinary frequency Right renal stone Abdominal pain Abnormal tumor markers Fatty liver Hepatomegaly Right lower quadrant pain Nausea and vomiting Appendicolith Right lower quadrant pain Chief Complaint ABDOMINAL PAIN E ORDER 2 WK FU EORDERS/PICKING UP KITS E ORDERS ABD E ORDER ABD PAIN, DIARRHEA POSSIBLE UTI RIGHT FLANK AND GROIN PAIN FLANK PAIN RT ESWL RT ESWL 2 MO FU INT LABS MASTODYNIA KUB FATTY LIVER flank pain [facility] ER FU/NOT ANY BETTER Appendicolith SEVERE BACK PAIN APPENDICITIS Reason for Visit Abnormal tumor marke rs Hepatomegaly Right lower quadrant pain Abdominal pain Suprapubic discomfort Urinary frequency Right renal stone Abnormal tumor markers Fatty liver Hepatomegaly Abdominal pain Right lower quadrant pain Nausea and vomiting Appendicolith Right lower quadrant pain Acute exacerbation of chronic low back pain Acute appendicitis Chief Complaint ABDOMINAL PAIN E ORDER 2 WK FU EORDERS/PICKING UP KITS E ORDERS ABD E ORDER ABD PAIN, DIARRHEA POSSIBLE UTI RIGHT FLANK AND GROIN PAIN FLANK PAIN RT ESWL RT ESWL 2 MO FU INT LABS MASTODYNIA KUB FATTY LIVER flank pain [facility] ER FU/NOT ANY BETTER Appendicolith SEVERE BACK PAIN ACUTE APPENDICITIS ACUTE APPENDICITIS Reason for Visit Abnormal tumor marke rs Hepatomegaly Right lower quadrant pain Abdominal pain Suprapubic discomfort Urinary frequency Right renal stone Abnormal tumor markers Fatty liver Hepatomegaly Abdominal pain Right lower quadrant pain Nausea and vomiting Right lower quadrant pain Acute exacerbation of chronic low back pain Acute appendicitis Chief Complaint ABD E ORDER ABD PAIN, DIARRHEA POSSIBLE UTI RIGHT FLANK AND GROIN PAIN FLANK PAIN RT ESWL RT ESWL 2 MO FU INT LABS MASTODYNIA KUB FATTY LIVER flank pain [facility] ER FU/NOT ANY BETTER Appendicolith SEVERE BACK PAIN ACUTE APPENDICITIS ACUTE APPENDICITIS 8 wk fu pain post appy APPENDICITIS 02/07 Reason for Visit Suprapubic discomfor t Urinary frequency Right renal stone Abnormal tumor markers Fatty liver Hepatomegaly Abdominal pain Right lower quadrant pain Nausea and vomiting Right lower quadrant pain Acute exacerbation of chronic low back pain Acute appendicitis Duodenal mass Epigastric pain Gastric intestinal metaplasia Unintentional weight loss S/P appendectomy Right groin pain Right ovarian cyst S/P appendectomy Chief Complaint E ORDER ABD PAIN, DIARRHEA POSSIBLE UTI RIGHT FLANK AND GROIN PAIN FLANK PAIN RT ESWL RT ESWL 2 MO FU INT LABS MASTODYNIA KUB FATTY LIVER flank pain [facility] ER FU/NOT ANY BETTER Appendicolith SEVERE BACK PAIN ACUTE APPENDICITIS ACUTE APPENDICITIS 8 wk fu pain post appy APPENDICITIS 02/07 RT OVARIAN CYST Reason for Visit Suprapubic discomfor t Urinary frequency Right renal stone Abnormal tumor markers Fatty liver Hepatomegaly Abdominal pain Right lower quadrant pain Nausea and vomiting Right lower quadrant pain Acute exacerbation of chronic low back pain Acute appendicitis Duodenal mass Epigastric pain Gastric intestinal metaplasia Unintentional weight loss S/P appendectomy Right groin pain Right ovarian cyst S/P appendectomy Chief Complaint ABD PAIN, DIARRHEA POSSIBLE UTI RIGHT FLANK AND GROIN PAIN FLANK PAIN RT ESWL RT ESWL 2 MO FU INT LABS MASTODYNIA KUB FATTY LIVER flank pain [facility] ER FU/NOT ANY BETTER Appendicolith SEVERE BACK PAIN ACUTE APPENDICITIS ACUTE APPENDICITIS 8 wk fu pain post appy APPENDICITIS 02/07 RT OVARIAN CYST Reason for Visit Suprapubic discomfor t Urinary frequency Right renal stone Abnormal tumor markers Fatty liver Hepatomegaly Abdominal pain Right lower quadrant pain Nausea and vomiting Right lower quadrant pain Acute exacerbation of chronic low back pain Acute appendicitis Duodenal mass Epigastric pain Gastric intestinal metaplasia Unintentional weight loss S/P appendectomy Right groin pain Right ovarian cyst S/P appendectomy Chief Complaint POSSIBLE UTI RIGHT FLANK AND GROIN PAIN FLANK PAIN RT ESWL RT ESWL 2 MO FU INT LABS MASTODYNIA KUB FATTY LIVER flank pain [facility] ER FU/NOT ANY BETTER Appendicolith SEVERE BACK PAIN ACUTE APPENDICITIS ACUTE APPENDICITIS 8 wk fu pain post appy APPENDICITIS 02/07 RT OVARIAN CYST APPENDICITIS 02/07 Reason for Visit Suprapubic discomfor t Urinary frequency Right renal stone Abnormal tumor markers Fatty liver Hepatomegaly Abdominal pain Right lower quadrant pain Nausea and vomiting Right lower quadrant pain Acute exacerbation of chronic low back pain Acute appendicitis Duodenal mass Epigastric pain Gastric intestinal metaplasia Unintentional weight loss S/P appendectomy Right groin pain Right ovarian cyst S/P appendectomy S/P appendectomy Chief Complaint MASTODYNIA KUB FATTY LIVER flank pain [facility] ER FU/NOT ANY BETTER Appendicolith SEVERE BACK PAIN ACUTE APPENDICITIS ACUTE APPENDICITIS 8 wk fu pain post appy APPENDICITIS 02/07 RT OVARIAN CYST APPENDICITIS 02/07 HYPOTHYROIDISM, POST SURGICAL HYPOTHY PALPITATIONS Reason for Visit Right lower quadrant pain Nausea and vomiting Right lower quadrant pain Acute exacerbation of chronic low back pain Acute appendicitis Duodenal mass Epigastric pain Gastric intestinal metaplasia Unintentional weight loss S/P appendectomy Right groin pain Right ovarian cyst S/P appendectomy S/P appendectomy Chief Complaint MASTODYNIA KUB FATTY LIVER flank pain [facility] ER FU/NOT ANY BETTER Appendicolith SEVERE BACK PAIN ACUTE APPENDICITIS ACUTE APPENDICITIS 8 wk fu pain post appy APPENDICITIS 02/07 RT OVARIAN CYST APPENDICITIS 02/07 HYPOTHYROIDISM, POST SURGICAL HYPOTHY PALPITATIONS palpitations HALTER MONITOR Reason for Visit Right lower quadrant pain Nausea and vomiting Right lower quadrant pain Acute exacerbation of chronic low back pain Acute appendicitis Duodenal mass Epigastric pain Gastric intestinal metaplasia Unintentional weight loss S/P appendectomy Right groin pain Right ovarian cyst S/P appendectomy S/P appendectomy Chief Complaint KUB FATTY LIVER flank pain [facility] ER FU/NOT ANY BETTER Appendicolith SEVERE BACK PAIN ACUTE APPENDICITIS ACUTE APPENDICITIS 8 wk fu pain post appy APPENDICITIS 02/07 RT OVARIAN CYST APPENDICITIS 02/07 HYPOTHYROIDISM, POST SURGICAL HYPOTHY PALPITATIONS palpitations HALTER MONITOR Reason for Visit Right lower quadrant pain Nausea and vomiting Right lower quadrant pain Acute exacerbation of chronic low back pain Acute appendicitis Duodenal mass Epigastric pain Gastric intestinal metaplasia Unintentional weight loss S/P appendectomy Right groin pain Right ovarian cyst S/P appendectomy S/P appendectomy Chief Complaint KUB FATTY LIVER flank pain [facility] ER FU/NOT ANY BETTER Appendicolith SEVERE BACK PAIN ACUTE APPENDICITIS ACUTE APPENDICITIS 8 wk fu pain post appy APPENDICITIS 02/07 RT OVARIAN CYST APPENDICITIS 02/07 HYPOTHYROIDISM, POST SURGICAL HYPOTHY PALPITATIONS palpitations HALTER MONITOR s/p [facility] ED 1-7-23 No taste - ongoing issue ABD PAIN Reason for Visit Right lower quadrant pain Nausea and vomiting Right lower quadrant pain Acute exacerbation of chronic low back pain Acute appendicitis Duodenal mass Epigastric pain Gastric intestinal metaplasia Unintentional weight loss S/P appendectomy Right groin pain Right ovarian cyst S/P appendectomy S/P appendectomy Chest pain Acute maxillary sinusitis Reason for Referral Specialty Diagnoses / Procedures Referred By Contac t Referred To Contact Diagnoses Chronic pelvic pain in female Procedures CONSULT TO MINIMALLY INVASIVE GYNECOLOGIC SURGERY OFFICE/OUTPATIENT [facility] 60 [address] Av Carter MD [address] [place] [address] Referral ID Status Reason Start Date Expiration Date Visits Requested Visits Authorized [id number] Authorized PCP Requested Referral Auto-Generate d Referral 4 04/09/2025 1 1 Additional Source Comments INFORMATION SOURCE (unrecogn ized section and content) DATE CREATED AUTHOR 11/18/2018 [facility] DATE CREATED AUTHOR AUTHOR'S ORGANIZ ATION 10/28/2023 [facility] ([place]) DATE CREATED AUTHOR AUTHOR'S ORGANIZ ATION 06/13/2024 [facility] DATE CREATED AUTHOR AUTHOR'S ORGANIZ ATION 06/24/2024 [facility] DATE CREATED AUTHOR AUTHOR'S ORGANIZ ATION 08/16/2024 [facility] DATE CREATED AUTHOR AUTHOR'S ORGANIZ ATION 10/06/2024 [facility] Goals (unrecognized section and content) Goals may be documented in a n alternate sectionGoals may be documented in an alternate sectionGoals may be documented in an alternate sectionGoals may be documented in an alternate section No data available for this sectionGoals may be documented in an alternate sectionGoals may be documented in an alternate sectionGoals may be documented in an alternate sectionGoals may be documented in an alternate sectionGoals may be documented in an alternate section No data available for this section No data available for this section No data available for this section No data available for this section No data available for this section No data available for this section Care Team (unrecognized sect ion and content) Care Team Personnel Name: KOKO KENT MD Member Role: Primary Care Physician Address: Address: [address] [place] [address] [place] [address]- Care Team Related Persons Name: RONAL Name: ALLEN VILLEDA Name: ALLEN VILLEDA Name: AN VILLEDA Address: Home [address] Name: GAEL REES Address: [address] [place] [address] [place] Source Comments (unrecognize d section and content) In the event this informatio n is protected by the Federal Confidentiality of Alcohol and Drug Abuse Patient Records regulations: The Federal rules restrict any use of the information to criminally investigate or prosecute any alcohol or drug abuse patient.[facility] the event this information is protected by the Federal Confidentiality of Alcohol and Drug Abuse Patient Records regulations: The Federal rules restrict any use of the information to criminally investigate or prosecute any alcohol or drug abuse patient.[facility] the event this information is protected by the Federal Confidentiality of Alcohol and Drug Abuse Patient Records regulations: The Federal rules restrict any use of the information to criminally investigate or prosecute any alcohol or drug abuse patient.[facility] the event this information is protected by the Federal Confidentiality of Alcohol and Drug Abuse Patient Records regulations: The Federal rules restrict any use of the information to criminally investigate or prosecute any alcohol or drug abuse patient.[facility] the event this information is protected by the Federal Confidentiality of Alcohol and Drug Abuse Patient Records regulations: The Federal rules restrict any use of the information to criminally investigate or prosecute any alcohol or drug abuse patient.[facility] Hospital[facility] the event this information is protected by the Federal Confidentiality of Alcohol and Drug Abuse Patient Records regulations: The Federal rules restrict any use of the information to criminally investigate or prosecute any alcohol or drug abuse patient.[facility] the event this information is protected by the Federal Confidentiality of Alcohol and Drug Abuse Patient Records regulations: The Federal rules restrict any use of the information to criminally investigate or prosecute any alcohol or drug abuse patient.[facility] the event this information is protected by the Federal Confidentiality of Alcohol and Drug Abuse Patient Records regulations: The Federal rules restrict any use of the information to criminally investigate or prosecute any alcohol or drug abuse patient.[facility] Hospital[facility] the event this information is protected by the Federal Confidentiality of Alcohol and Drug Abuse Patient Records regulations: The Federal rules restrict any use of the information to criminally investigate or prosecute any alcohol or drug abuse patient.[facility] Hospital[facility] the event this information is protected by the Federal Confidentiality of Alcohol and Drug Abuse Patient Records regulations: The Federal rules restrict any use of the information to criminally investigate or prosecute any alcohol or drug abuse patient.[facility] Hospital[facility] the event this information is protected by the Federal Confidentiality of Alcohol and Drug Abuse Patient Records regulations: The Federal rules restrict any use of the information to criminally investigate or prosecute any alcohol or drug abuse patient.[facility] Reason for Visit (unrecogniz ed section and content) Reason Comments Rash itching x 3 days Reason Comments Follow Up Urgent care told her to follow up with the doctor who did her thyroid surgery Reason Comments Results Reason Comments Consult Reason Comments Patient Question Reason Comments Follow Up From ER Reason Comments Results Reason Comments Cough Chest congestion, le ft side lung pain with cough, fatigue, headache, some wheezing x 1 week Reason Comments New Patient Neck pain Care Teams (unrecognized sec tion and content) [employer] Supervisor Relationship Specialty Start Date End Date Koko Kent MD [address] [place] [address] PCP - General Internal Medicine 12/19/20 Team Status: Active Member Role Status Dates Dr. Koko Kent MD Family Provider Active Dr. Koko Kent MD Primary Care Provider Active Team Status: Inactive Member Role Status Dates Dr. Koko Kent MD Primary Care Provider, Refer ring Provider Active Lianne Pacheco SAMPLE CARRIER, SAMPLE CARRIER-C Attending Provider Active Team Status: Inactive Member Role Status Dates Dr. Koko Kent MD Primary Care Provider, Refer ring Provider Active Mika Valerio SAMPLE CARRIER, SAMPLE CARRIER-C Attending Provider Active Team Status: Inactive Member Role Status Dates Dr. Koko Kent MD Primary Care Provider, Refer ring Provider Active Dr. Burke Nuno MD Attending Provider Active Team Status: Active Member Role Status Dates Dr. Koko Kent MD Primary Care Provider Active Dr. Eder Barillas MD Emergency Provider Active Dr. Tara Rob MD Admit Provider, Attending Provider, Other Provider Active Team Status: Inactive Member Role Status Dates Dr. Koko Kent MD Primary Care Provider, Refer ring Provider Active Dr. Tara Rob MD Attending Provider Active Team Status: Inactive Member Role Status Dates Dr. Koko Kent MD Primary Care Provider, Refer ring Provider Active Magi Farley PA, PA-C Attending Provider Active Team Status: Inactive Member Role Status Dates Dr. Koko Kent MD Primary Care Provider Active Dr. Tara Rob MD Attending Provider Active Team Status: Inactive Member Role Status Dates Dr. Koko Kent MD Primary Care Provider, Refer ring Provider Active Elysia Dyson PA, PA Attending Provider Active Team Status: Inactive Member Role Status Dates Dr. Koko Kent MD Primary Care Provider Active Lianne Pacheco SAMPLE CARRIER, SAMPLE CARRIER-C Attending Provider, Referrin g Provider Active Team Status: Inactive Member Role Status Dates Dr. Koko Kent MD Primary Care Provider Active Dr. Tiana Sorensen MD Attending Provider, Referring P rovider Active Team Status: Inactive Member Role Status Dates Dr. Koko Kent MD Primary Care Provider Active Dr. Ravin Hill DO Attending Provider, Emergency P rovider Active Team Status: Inactive Member Role Status Dates Dr. Koko Kent MD Primary Care Provider Active Mika Valerio SAMPLE CARRIER, SAMPLE CARRIER-C Attending Provider, Referring Prov ider Active Team Status: Inactive Member Role Status Dates Dr. Koko Kent MD Primary Care Provider Active Dr. Eder Barillas MD Emergency Provider Active Dr. Tara Rob MD Admit Provider, Attending Pro vider Active Team Status: Inactive Member Role Status Dates Dr. Koko Kent MD Primary Care Provider Active Magi Farley PA, PA-C Attending Provider, Referring Provider Active Team Status: Inactive Member Role Status Dates Dr. Koko Kent MD Primary Care Provider Active Brittney Verde NP-C Attending Provider, Referring Pr ovider Active Team Status: Inactive Member Role Status Dates Dr. Koko Kent MD Primary Care Provider Active Dr. Marley Vogel DO Attending Provider Active Team Status: Inactive Member Role Status Dates Dr. Koko Kent MD Primary Care Provider Active Dr. Bolivar Saldana MD Attending Provider, Referring Provi brjiesh Active Team Status: Inactive Member Role Status Dates Dr. Koko Kent MD Primary Care Provider Active Ed Physician Provider Attending Provider, Emergency Pr ovider Active Team Status: Inactive Member Role Status Dates Dr. Koko Kent MD Primary Care Provider Active Dr. Sha Garcia MD Attending Provider, Emergency Pr ovider Active Team Status: Inactive Member Role Status Dates Dr. Koko Kent MD Primary Care Provider Active Dr. Sha Garcia MD Attending Provider, Referring Pr chetaner Active Team Status: Inactive Member Role Status Dates Dr. Koko Kent MD Primary Care Provider Active Dr. Regulo Giron DO Emergency Provider Active [employer] Supervisor Relationship Specialty Start Date End Date Koko Kent MD [address] [place] [address] PCP - General Internal Medicine 12/19/20 [employer] Supervisor Relationship Specialty Start Date End Date Koko Kent MD [address] [address] PCP - General Internal Medicine 12/19/20 [employer] Supervisor Relationship Specialty Start Date End Date Koko Kent MD [address] [address] PCP - General Internal Medicine 12/19/20 [employer] Supervisor Relationship Specialty Start Date End Date Koko Kent MD [address] [address] PCP - General Internal Medicine 12/19/20 [employer] Supervisor Relationship Specialty Start Date End Date Koko Kent MD [address] [address] PCP - General Internal Medicine 12/19/20 [employer] Supervisor Relationship Specialty Start Date End Date Koko Kent MD [address] [address] PCP - General Internal Medicine 12/19/20 [employer] Supervisor Relationship Specialty Start Date End Date Koko Kent MD [address] [address] PCP - General Internal Medicine 12/19/20 [employer] Supervisor Relationship Specialty Start Date End Date Aviva Austin, [address] [place] [address] PCP - General Family Medicine 05/24/24 [employer] Supervisor Relationship Specialty Start Date End Date Aviva Austin, [address] [place] [address] PCP - General Family Medicine 05/24/24 [employer] Supervisor Relationship Specialty Start Date End Date Aviva Austin, [address] [place] [address] PCP - General Family Medicine 05/24/24 FOR RECORDS PERTAINING TO PATIENTS WHO ARE [...] BE BASED ON THE PRIMARY CLINICAL RECORDS. [facility] [employer] [facility]. provides no warranty or guarantee of the accuracy or completeness of information in this document.
--- NOTE | 2024-10-06 17:39 | EDS_ITS ---
HPI History of Present Illness Chief Complaint: Other, Pain/Inj Detail of Chief Complaint: Posterior and anterior neck pain Informant: patient Onset/Context/Timing Onset: Days (, October 04) Location of pain/injuries: - (Neck doing full exercise at PT) Quality of Pain: Dull, Aching and Throbbing Location: Predominantly posterior neck and on the right side Current Severity: Mild Maximum Severity: Severe Worsened by: Movement Relieved by: Nothing Associated Symptoms Associated Symptoms: Positive for Parasthesias (Dorsal forearm and right thumb and index finger similar to symptoms she had prior to surgery); Negative for Weakness or Loss of function Narrative Narrative: Patient is a 39-year-old female. Patient had surgery for 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, radiculomyelopathy, prior total thyroidectomy. Procedures performed by Dr. Lowe in assisted by Dr. Burke Nuno. Patient states she went to physical therapy. She did not exercise that she was pulling towards her. She was not to have any weights. Apparently was 50 pounds. She developed severe pain. She contacted Dr. Teixeira's office. She was instructed to come to the emergency room. She did not present till told so they. She is having numbness in her right thumb and index finger and dorsum of the right forearm. She states she had similar symptoms prior to the surgery. She states she had no symptoms after surgery. Surgery was August 29. There is no history of direct trauma. She denies cardiac or respiratory symptoms. Movement of her head flexion extension rotation causes her di scomfort. Prior similar symptoms: Yes Recent Illness/Hospitalization: Yes [facility] Medical History Gastric reflux Tingling of both upper extremities Parotid mass Cellulitis of right thigh Normal stress echocardiogram Acute sinusitis, unspecified Urinary tract infection with hematuria Radiculopathy Chronic back pain Preventative health care Anterior neck pain Other acute postprocedural pain Elevated lipase Low vitamin B12 level Low calcium levels History of stress test PTSD (post-traumatic stress disorder) Paresthesia Depression Anxiety Hypoglycemia Fatty liver Back pain Syncope History of hiatal hernia Smoker Shortness of breath on exertion Leg cramps History of pain when walking Cardiology follow-up encounter Right groin pain Right ovarian cyst Urgency of urination Duodenal mass Epigastric pain Right lower quadrant pain Abnormal tumor markers Hepatomegaly Right renal stone Renal colic on right side History of Holter monitoring Right flank pain Suprapubic discomfort Urinary frequency Hidradenitis suppurativa Abscess of left axilla Urinary tract infection Ureteral calculus, right Irregular heart beat Abnormal urinalysis Diverticulosis Bloating Tenesmus (rectal) Unintentional weight loss Post-surgical hypoparathyroidism Diarrhea Abdominal pain Wears dentures Injury of head and neck Asthma Shortness of breath on exertion Leg cramps Hx of cystic acne Bradycardia Intermittent palpitations COVID-19 (03/17/21) Upper respiratory infection Vertigo Chronic constipation Pelvic pain Annular tear of lumbar disc Degenerative disc disease at L5-S1 level Generalized anxiety disorder with panic attacks Postoperative hypothyroidism Tinea pedis of both feet Hypokalemia Hypocalcemia Polycystic ovaries Hypothyroidism Carpal tunnel syndrome H/O breast lump Tobacco use Hypocalcemia syndrome TMJ (temporomandibular joint syndrome) Arthritis Home Medications ?Medication ?Instructions ?Recorded ?Last Taken ?Type cholecalciferol (vitamin D3) 125 125 mcg PO TU 3 08/22/24 History mcg (5,000 unit) capsule dicyclomine 20 mg tablet 20 mg PO TID PRN abdominal p ain 11/03/22 Unknown History calcitriol 0.5 mcg capsule 1.5 mcg (3 x 0.5 mcg) PO QH S 04/13/23 08/28/24 21:00 Rx calcium #90 caps cyanocobalamin (vitamin B-12) 250 500 mcg PO DAILY 08/28/24 History mcg tablet ondansetron 4 mg disintegrating 4 mg PO Q8H PRN PRN Na usea #10 tabs 06/21/24 Unknown Rx tablet albuterol sulfate 90 mcg/actuation 1 - 2 puff inhalati on Q4H PRN PRN 08/23/24 Unknown History aerosol inhaler wheezing duloxetine 20 mg capsule,delayed 20 mg PO QHS 08/23/24 08/28/24 21:00 History release levothyroxine 150 mcg tablet 150 mcg PO DAILY 08/23/24 08/29/24 04:00 History pantoprazole 40 mg tablet,delayed 40 mg PO DAILY #30 t abs 08/28/24 08/29/24 04:00 Rx release meloxicam 15 mg tablet 15 mg PO DAILY PRN 09/13/24 Unknown History hydrocodone-acetaminophen 5-325mg 1 tab PO Q6H PRN PRN Pain 3 days 10/06/24 Unknown Rx 5mg-325mg #10 TABLETS Allergy/AdvReac Type Severity Reaction Status Date / Time codeine Allergy Mild Itching Verified 10/06/24 16:01 fluoxetine (From Prozac) AdvReac EDWIN Verified 10/06/24 16:01 naproxen (From Naprosyn) AdvReac NOSEBLEED Verified 10/06/24 16:01 Family History Father Alcoholism Mother Anemia Depression Hypertension Hyperlipemia Diabetes Grandfather Diabetes Myocardial infarction Grandmother Breast cancer Diabetes Surgical History History of bilateral salpingo-oophorectomy S/P appendectomy History of appendectomy History of esophagogastroduodenoscopy (EGD) History of incision and drainage S/P hysterectomy H/O thyroidectomy History of cholecystectomy History of total hysterectomy History of thyroidectomy History of partial hysterectomy Social History household members: none number of children: 4 current occupational status: employed current occupation: [employer] Smoking Status: Current every day smoker tobacco type: cigarettes Tobacco: How many years used: 20 alcohol intake: never substance use type: does not use what type of physical activity do you participate in: none additional social history: Single ROS ROS ED Constitutional Constitutional ED: Denies chills, fever(s), subjective, sweats or weight loss Cardiovascular Cardiovascular: Denies chest pain or palpitations Respiratory/Chest Respiratory/Chest: Denies cough, dyspnea or dyspnea on exertion Musculoskeletal Musculoskeletal: Reports neck pain; Denies arthralgias, back pain or myalgias Integumentary Denies rash Neurologic Neurologic: Reports paresthesias RUE Hematologic/Lymphatic Hematologic/Lymphatic: Denies easy bleeding or easy bruising EXAM Physical Exam Const Vital Signs: 10/06/24 15:59 10/06/24 17:07 Temperature 98.3 F Temperature Source Oral Pulse Rate 79 Respiratory Rate 16 Respiratory Effort Normal Blood Pressure 139/79 H Blood Pressure Mean 99 Pulse Ox 98 Oxygen Delivery Method Room Air Positive well nourished and well developed General Appearance ED: well developed; Negative for NAD HEENT HEENT Narrative: Head is normocephalic. Nares patent. Ears normal atraumatic Eyes PERRL and EOMs intact bilaterally Neck No full ROM Neck Narrative: Patient has tenderness over the right sternocleidomastoid muscle group, posterior right neck. There is pain ovation of the trapezius as well. Movement of the right upper extremity at the shoulder causes her discomfort. She has no radicular-like pain. She reports decreased sensation over the thumb and index finger and radial side of the hand. There is no decreased sensation dermatome C6 or 7 in the arm or forearm. Axillary, median, radial and ulnar function intact. Radial pulses 2+. Bicep, brachialis and tricep muscle are 3+ and symmetric. General: tenderness Resp normal respiratory effort and clear to auscultation bilaterally Cardio regular rhythm, S1 normal heart sound, S2 normal heart sound and no murmurs Rate: regular rate Extremity normal to inspection and full ROM General Extremety ED: Negative for deformity or edema General Extremity: Negative for deformity or edema Neuro oriented x3, CN's II-XII intact bilaterally and moves all extremities Neuro Narrative: Neurologic exam for the right upper extremity was documented under the neck portion of the exam. Deep Tendon Reflexes: Rt Triceps (C7): 3+, Lt Triceps (C7): 3+, Rt Biceps (C5, C6): 3+, Lt Biceps (C5, C6): 3+, Rt Brachioradialis (C6): 3+ and Lt Brachioradialis (C6): 3+ Psych mental status grossly normal and thought process normal Skin no rashes or lesions noted, no wounds, skin turgor normal and no jaundice MDM MDM MDM Narrative Medical decision making narrative: X-ray of the C-spine was obtained. This was obtained to see if there is any obvious displacement of hardware or asymmetry. If there is comparison views will compare. She was medicated with IV medication. Patient is in obvious discomfort. History & Record Review Additional record(s) reviewed:: Prior inpatient record (Operative note by surgeon and assistant professor of chemistry were reviewed.) and Prior labs Radiography Chest X-Ray - ED: Read by ED Physician (5 view x-ray of the neck was independent reviewed interpreted by me at 1745.) Diagnostic Testing: Clinical Impression(s) from Imaging Studies Cervical Spine X-Ray 06/28/25 17:25 IMPRESSION: No acute cervical finding. Reading Location: [facility] Treatment and Re-Evaluation Narrative: Patient was reassessed at 1745. She was informed of her x-ray results. She states her pain is a 3 which is a marked improvement. She be discharged to home on [place]. Discharge Plan Triage Chief Complaint: Other, Pain/Inj ED Provider: Ke Del Real Dx/Rx/DC Orders Clinical Impression: Acute cervical myofascial strain, Paresthesia of right thumb, Paresthesia of finger Instructions: ED Neck Sprain or Strain Prescriptions: New hydrocodone-acetaminophen 5-325 mg tablet 1 tab PO Q6H PRN PRN (Reason: Pain) 3 Days Qty: 10 0RF No Action cholecalciferol (vitamin D3) 125 mcg (5,000 unit) capsule 125 mcg PO TU dicyclomine 20 mg tablet 20 mg PO TID PRN (Reason: abdominal pain) meloxicam 15 mg tablet 15 mg PO DAILY PRN levothyroxine 150 mcg tablet 150 mcg PO DAILY albuterol sulfate 90 mcg/actuation HFA aerosol inhaler 1 - 2 puff inhalation Q4H PRN PRN (Reason: wheezing) duloxetine 20 mg capsule,delayed release(DR/EC) 20 mg PO QHS cyanocobalamin (vitamin B-12) 250 mcg tablet 500 mcg PO DAILY ondansetron 4 mg tablet,disintegrating 4 mg PO Q8H PRN PRN (Reason: Nausea) Qty: 10 0RF calcitriol 0.5 mcg capsule 1.5 mcg PO QHS Qty: 90 2RF pantoprazole 40 mg tablet,delayed release (DR/EC) 40 mg PO DAILY Qty: 30 3RF Primary Care Provider: Charli Austin NP Referrals: Charli Austin CLIENT REPORTING ASSOCIATE, CLIENT REPORTING ASSOCIATE-C [Primary Care Provider] - Print Language: Frisian Disposition Disposition: Home, Self Care
[2024-10-06 18:16] VITALS: BP 133/86; PULSE 94; RESP 18; TEMP 36.7; O2SAT 91
== END 2024-10-06 18:17 | disposition home or self-care (01) ==
PROVIDERS: Emergency Provider Emergency Medicine; PCP Nurse Practitioner Family; Visit Provider Emergency Medicine
DX: S16.1XXA Strain of muscle, fascia and tendon at neck level, initial encounter (principal); R20.2 Paresthesia of skin; F17.210 Nicotine dependence, cigarettes, uncomplicated; X58.XXXA Exposure to other specified factors, initial encounter; Z86.16 Personal history of COVID-19
CPT/HCPCS: 72050; 96374; 96375; 99283; A4216; J2405

== ENCOUNTER → 2024-10-15 | Outpatient (CLI) | payer MEDICAID, SELFPAY | END | disposition home or self-care (01) | LOC: OPUS 08:51 | PROVIDERS: PCP Nurse Practitioner Family; Referring Provider Obstetrics & Gynecology; Visit Provider Obstetrics & Gynecology | DX: N94.9 Unspecified condition associated with female genital organs and menstrual cycle (principal) | CPT/HCPCS: 76830; 76856 ==

== ENCOUNTER → 2024-11-02 | Outpatient (CLI) | payer MEDICAID, SELFPAY | END | disposition home or self-care (01) | LOC: LABSPEC 11:41 | PROVIDERS: PCP Nurse Practitioner Family; Referring Provider Surgery; Visit Provider Surgery | DX: L02.01 Cutaneous abscess of face (principal) | CPT/HCPCS: 87070; 87075; 87077; 87186; 87205 ==

== ENCOUNTER → 2024-11-13 | Outpatient (CLI) | payer MEDICAID, SELFPAY ==
--- NOTE | 2024-11-13 09:30 | BI_ITS ---
EXAM: DIAG MAMM W/CAD, BILAT 11/13/2024 CLINICAL HISTORY: F, Age 39 y/o , 6 MONTH F/U-ABNORMAL MAMMOGRAM TECHNIQUE: DIAG MAMM W/CAD, BILAT. COMPARISON: Prior exam(s) dated outside examination dated May 21, 2024.. FINDINGS: TISSUE DENSITY: The breasts are heterogeneously dense, which may obscure small masses. Bilateral Breast Mammographic Findings: Once again, a focus of coarse calcifications seen in the central depth of the left breast. Stereotactic breast biopsy recommended. A tissue clip marker is seen in the anterior upper slightly lateral aspect of the left breast. The calcifications in the retroareolar region of the right breast are unremarkable. BI/DIAG MAMM W/CAD, BILAT IMPRESSION: Persistent coarse calcifications in the central portion of the left breast as d escribed. Stereotactic breast biopsy recommended. OVERALL FINAL ASSESSMENT BI-RADS 4: SUSPICIOUS RECOMMENDATION: Biopsy Recommended A letter with findings and recommendations will be mailed to the patient. Reading Location: [facility]
== END | disposition home or self-care (01) ==
LOC: OPBI 09:15
PROVIDERS: PCP Nurse Practitioner Family; Referring Provider Surgery; Visit Provider Surgery
DX: R92.1 Mammographic calcification found on diagnostic imaging of breast (principal)
CPT/HCPCS: 77062; 77066; G0279

== ENCOUNTER → 2024-11-20 | Outpatient (CLI) | payer MEDICAID, SELFPAY ==
--- NOTE | 2024-11-20 08:50 | BRBX_PTH ---
PATIENT: AMY VILLEDA LOC: [facility] U#:[id number] AGE/SX: 39/F ROOM: RE11/20/[address]: Dr. Burke Nuno MD : 1985 BED: DIS: 11/20/2024 SPEC #: [id number] RECD: 11/20/24 09:05 STATUS: NICOLE RIAN #: [id number] MERLE: 11/20/24 08:[address]: Burke Nuno DEPT: SURGICAL PATHOLOGY RECD BY: Bradford Meza ENTERED: 11/20/24 09:18 SP TYPE: BREAST BX OTHR DR: Charli Austin, DEGREASING SOLUTION MIXER-C Tissues: A - Left breast, NOS Procedures: Immunohistochemical Stains Surgery Specimen Level IV IHC Stain ADDITIONAL HEADER OPERATION: Left stereotactic breast biopsy PRE-OP DIAGNOSIS: Left central depth breast microcalcifications TISSUE SUBMITTED: A- Left breast core tissue - chamber #1 MICROSCOPIC DIAGNOSIS A. Breast, left, stereotactic biopsy: - Benign breast tissue with adenosis, sclerosing adenosis, fibroadenomatoid change, and fibrosis. - Focal microcalcifications observed. - IHC for E-cadherin, CK5/6, p40 (A1, A2, A3) and ER (A1) support the histologic impression. MICROSCOPIC DESCRIPTION Slides are reviewed. ?All matched controls reacted appropriately. These tests were developed and their performance characteristics determined by [facility]. They may not have been cleared or approved by the U.S. Food and Drug Administration. The FDA has determined that such clearance or approval is not necessary.? The above immunohistochemical?markers are reviewed by the Pathologist. GROSS DESCRIPTION A. Received fresh and subsequently placed in formalin labeled with the patient's name and date of are 6 whyte-yellow lobulated soft tissue cores, 1.6-2.5 cm in length by 0.2-0.4 cm in diameter. The specimen is entirely submitted in 3 cassettes, following postoperative imaging as follows: A1: Chambers #1/#2A2: Chambers #3/#4A3: Chambers #5/#6 Cold ischemic time: 17 minutesFormalin fixation time: 10 hours, 23 minutes MO 11/20/2024 CPT:[id number]
--- NOTE | 2024-11-20 09:04 | OP.PCM_ITS ---
Procedures Integumentary [id number]-193xx: [id number] [facility] (Standard[facility] Operative Information Date of Procedure: 11/20/24 Pre-Operative Diagnosis: Suspicious left breast calcifications Post-Operative Diagnosis: Same Surgery/Procedure Performed: Stereotactic core needle left breast biopsy mental health aides teacher: No Type of Anesthesia: Local Procedure Start Time: 08:30 Procedure Stop Time: 09:00 Select all DRAINS/GRAFTS/IMPLANTS that apply: None Estimated Blood Loss: 3 Specimen collected: Yes Description of specimen(s) removed: 6 breast cores Description of surgery: Procedure name: Stereotactic biopsy of left breast Indication: Macro calcifications in the central portion of left breast with BI- RADS 4 designation After obtaining written and verbal consent and reviewing the details of the procedure, patient was positioned on the mammography table. Web Marketing Strategist image was performed to identify the location of microcalcifications. Stereo images were obtained at plus and -15 degrees. With these images, the biopsy site was targeted just below the area to be sampled. Then the biopsy site was anesthetized with local anesthetic both at the skin and deeply along the ventral biopsy tract. A skin joanne was made with an 11 blade to accommodate the 8 Nauruan mammotome core needle. The needle was advanced into this opening and the needle was fired. Post-firing images confirmed that we were in the vicinity of the calcifications. We then obtained 6 biopsies along the 180 degrees superior to the needle insertion site. The cores were then x-rayed and we confirmed the pre sence of microcalcifications in the first core. Satisfied with this result, I placed a clip at the biopsy site and confirmed it presents with another x-ray. This concluded the biopsy and the patient was allowed to sit upright while manual pressure was applied externally. She tolerated the procedure well without any apparent complication apart from some neck stiffness. She was given post- procedure care instructions and we will follow up once pathology has resulted. EBL: 3mL Surgical Findings: Core radiograph showing calcifications in first sampling Complications Complications: No
== END | disposition home or self-care (01) ==
LOC: BIRAD 08:14
PROVIDERS: PCP Nurse Practitioner Family; Referring Provider Surgery; Visit Provider Surgery
DX: R92.0 Mammographic microcalcification found on diagnostic imaging of breast (principal)
CPT/HCPCS: 19081; 88305; 88341; 88342; A4648

== ENCOUNTER → 2024-12-14 | Outpatient (CLI) | payer MEDICAID, SELFPAY ==
--- NOTE | 2024-12-14 10:30 | MRI_ITS ---
PROCEDURE: SPINE CERVICAL (ROUTINE) 12/14/2024 REASON FOR EXAM: WORSENING RAD AFTER DICS REPLACEMENT TECHNIQUE: Procedure Code: MRISPC Modality: MR Procedure: SPINE CERVICAL (ROUTINE) Multiplanar and multisequence images were obtained without IV contrast administration. COMPARISON: MRI cervical spine, 07/28/2024. FINDINGS: Vertebrae: Cervical vertebral body heights are preserved. Bone marrow signal is unremarkable. Alignment: There is loss of the normal cervical lordosis. No spondylolisthesis. Spinal Cord: Cervical spinal cord is of normal size and signal intensities. Structures at the foramen magnum are unremarkable. C2-3: Unremarkable C3-4: Unremarkable C4-5: There is a broad-based central disc protrusion. There is central canal stenosis with compression of the thecal sac and spinal cord.. The AP dimension of the spinal canal measures 9 mm. There is no facet arthropathy. C5-6: Interval placement of an intervertebral disc prosthesis. There is central canal stenosis with compression of the thecal sac and spinal cord. The AP dimension of the spinal canal measures 7 mm. There is moderate foraminal narrowing on the right and mild foraminal narrowing on the left. C6-7: Interval placement of an intervertebral disc prosthesis. There is central canal stenosis with compression of the thecal sac and spinal cord. The AP dimension of the spinal canal measures 7 mm. There is moderate foraminal narrowing on the left. C7-T1: Unremarkable There is narrowing of the spinal canal without degenerative disc disease at the T1-2 and T2-3 levels with the AP dimension of the spinal canal measuring 8 mm. MRI/Spine Cervical (Routine) IMPRESSION: 1. 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 2. Status post interval placement of intervertebral disc prostheses, C5-6 and C6-7. 3. There is central canal stenosis with compression of the thecal sac and spin al cord, C4-5 through C6-7. 4. There is foraminal narrowing at C5-6 and C6-7, as described. [id number]
== END | disposition home or self-care (01) ==
LOC: MRI 10:11
PROVIDERS: PCP Nurse Practitioner Family; Referring Provider Student in an Organized Health Care Education/Training Program; Visit Provider Student in an Organized Health Care Education/Training Program
DX: M54.12 Radiculopathy, cervical region (principal); Z98.890 Other specified postprocedural states
CPT/HCPCS: 72141

== ENCOUNTER → 2025-02-12 | Outpatient (CLI) | payer MEDICAID, SELFPAY ==
--- NOTE | 2025-02-12 07:48 | US_ITS ---
PROCEDURE: US/Transvaginal Non-
== END | disposition home or self-care (01) ==
LOC: OPUS 07:47
PROVIDERS: PCP Nurse Practitioner Family; Referring Provider Nurse Practitioner Family; Visit Provider Nurse Practitioner Family
DX: N94.9 Unspecified condition associated with female genital organs and menstrual cycle (principal)
CPT/HCPCS: 76830

== ENCOUNTER → 2025-02-27 | Outpatient (CLI) | payer MEDICAID, SELFPAY ==
[2025-02-27 13:17] LABS: Hematocrit 41.7 % (37-47); Hemoglobin 14.1 g/dL (12.0-15.0); Immature Granulocytes Count 0.070 X10^3/uL (0.0-0.0); Mean Corp Hgb Conc 33.8 g/dL (32-36); Mean Corpuscular Volume 88.5 fL (81-99); Mean Platelet Vol. 11.5 fl (6.2-12.0); NRBC Flagged by Analyzer 0 % (0-5); Platelet Count 346 K/mm3 (150-450); RBC Distribution Width CV 12.5 % (11.6-14.6); RBC Distribution Width SD 40.5 fl (35.1-43.9); Red Blood Count 4.71 M/mm3 (4.2-5.4); White Blood Count 9.7 K/mm3 (4.4-11.0)
[2025-02-27 13:54] LABS: Follicle Stimulating Hormone 9.0 mIU/mL
[2025-03-01 04:07] LABS: Carcinoembryonic Antigen 2.5 ng/mL (0.0-4.7)
== END | disposition home or self-care (01) ==
LOC: LAB 12:12
PROVIDERS: PCP Nurse Practitioner Family; Referring Provider Obstetrics & Gynecology; Visit Provider Obstetrics & Gynecology
DX: N83.209 Unspecified ovarian cyst, unspecified side (principal)
CPT/HCPCS: 36415; 82378; 82670; 83001; 85025; 86304